=== PATIENT | female | born 1965 | race Caucasian/White ===

== ENCOUNTER 2021-08-19 03:37 | Inpatient (IN) | payer MEDICARE, MEDICAID, SELFPAY ==
--- NOTE | 2021-08-19 | ECG_ITS ---
Test Reason : baseline for antipsychotics Blood Pressure : / mmHG Vent. Rate : 086 BPM Atrial Rate : 086 BPM P-R Int : 126 ms QRS Dur : 078 ms QT Int : 356 ms P-R-T Axes : 060 020 038 degrees QTc Int : 426 ms Poor data quality, interpretation may be adversely affected Normal sinus rhythm Normal ECG No previous ECGs available Referred By: Talya Quesada Electronically Signed By:Sebastian Romeo
--- NOTE | ~2021-08-19 | US_ITS ---
EXAMINATION: US ABDOMEN COMPLETE CLINICAL INFORMATION: Pain. Rule out mass. COMPARISON: None TECHNIQUE: Real-time imaging of the abdominal viscera. FINDINGS: PANCREAS: Not well visualized due to bowel gas. ABDOMINAL AORTA: The proximal, mid, and distal segments are normal in caliber. INFERIOR VENA CAVA: Visualized portions are normal. LIVER: The liver is normal in size. The liver contour is normal. Liver echotexture is slightly increased. No focal hepatic lesion. There is no intrahepatic biliary duct dilatation seen. GALLBLADDER: Limited as the patient has recently eaten. Gallbladder is slightly contracted. Gallbladder wall is slightly thickened measuring 4 mm. No gallstones are seen. COMMON BILE DUCT: Normal in caliber measuring 0.8 cm in diameter. RIGHT KIDNEY: Normal. No hydronephrosis. No renal calculi or focal parenchymal lesions. The kidney measures 9.9 cm in maximum dimension. LEFT KIDNEY: Normal. No hydronephrosis. No renal calculi or focal parenchymal lesions. The kidney measures 11.0 cm in maximum dimension. SPLEEN: Normal. The spleen measures 11.6 cm in maximum dimension. FREE FLUID: None. US/US abdomen complete IMPRESSION: Slightly echogenic liver. Limited evaluation of the gallbladder as the patient has recently eaten. No gallstone seen. Limited visualization of the pancreas.
--- NOTE | ~2021-08-19 | XR_ITS ---
EXAMINATION: XR HIP, LEFT CLINICAL INFORMATION: Hip and back pain COMPARISON: None TECHNIQUE: Two views of the left hip and one view of the pelvis. FINDINGS: There is a moderate to severe left hip arthritis with joint space narrowing, osteophyte formation and some subchondral cyst formation. The right hip joint is normal. Bones of the pelvis are normal. Soft tissues are normal. XR/XR hip LT min 2V IMPRESSION: Moderate to severe left hip arthritis.
[2021-08-19 05:19] VITALS: BMI 32.8
[2021-08-19 05:32] VITALS: BP 112/82; PULSE 66; RESP 18; TEMP 36.4; O2SAT 100
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
[2021-08-19 06:06] VITALS: BMI 32.8
[2021-08-19 08:44] VITALS: BP 118/78; PULSE 80; RESP 16; TEMP 36.6; O2SAT 98
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
[2021-08-19] MEDS: Nicotine Polacrilex 2 MG GUM BUCCAL (11:50)
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
[2021-08-19] MEDS: Gabapentin 300 MG CAPSULE PO (20:23)
[2021-08-19] MEDS: rOPINIRole HCL 0.5 MG TABLET PO (20:23)
[2021-08-19] MEDS: Melatonin 3 MG TABLET 9 MG PO (20:23)
[2021-08-19] MEDS: QUEtiapine Fumarate 50 MG TABLET PO (20:23)
[2021-08-19] MEDS: Amoxicillin/Potassium Clav 875 MG TABLET PO (20:24)
[2021-08-19] MEDS: LORazepam 1 MG TABLET PO (20:24)
[2021-08-19 20:32] VITALS: BP 169/84; PULSE 75; TEMP 36.5; O2SAT 99
[2021-08-19 20:36] VITALS: BP 169/84; PULSE 75
[2021-08-19] MEDS: cloNIDine HCL 0.1 MG TABLET PO (20:36)
--- NOTE | 2021-08-19 23:18 | PC.NURSE ---
Patient BP at 2031 169/84. Talya Quesada aware. 0.1 mg clonidine ordered and administered at 2035 with good effect. BP rechecked at 2319. BP 118/66.
[2021-08-20 07:56] LABS: Estimated Average Glucose 111 mg/dL; Hemoglobin A1c % 5.5 %
[2021-08-20 08:00] VITALS: BP 135/89; PULSE 67; TEMP 36.1; O2SAT 100
[2021-08-20 08:04] LABS: Cholesterol 236 mg/dL; HDL Cholesterol 46 mg/dL; LDL Cholesterol Calculated 167 mg/dl; Triglycerides 119 mg/dL
[2021-08-20] MEDS: LORazepam 1 MG TABLET PO (08:42)
[2021-08-20] MEDS: Cariprazine HCl 1.5 MG CAPSULE PO (08:42)
[2021-08-20] MEDS: QUEtiapine Fumarate 50 MG TABLET PO ×2 (08:42→20:43)
[2021-08-20] MEDS: Gabapentin 300 MG CAPSULE PO ×2 (08:42→20:43)
[2021-08-20] MEDS: Amoxicillin/Potassium Clav 875 MG TABLET PO ×2 (08:42→20:44)
[2021-08-20 08:57] LABS: Vitamin B12 550 pg/mL (200-900)
[2021-08-20] MEDS: Multivitamin TABLET 1 TAB PO (09:36)
[2021-08-20] MEDS: rOPINIRole HCL 0.5 MG TABLET PO ×2 (12:16→20:43)
[2021-08-20] MEDS: Artificial Tears 15 ML DROPS 2 DROP EYE-BOTH (12:23)
[2021-08-20] MEDS: Nicotine Polacrilex 2 MG GUM BUCCAL ×2 (12:26→18:52)
--- NOTE | 2021-08-20 12:50 | P.PNPSI_ITS ---
Subjective Subjective Date of Service: 08/20/21 Reason For Visit: Bipolar, Schizoaffective Subjective Notes: Conditional Voluntary Interim History: Patient's case reviewed with nursing staff chart reviewed patient seen. Patient somewhat pressured expansive irritable reactive. Somewhat pressure dysphoric and argumentative Medication Compliance: Yes Mental Status Exam Mental Status Exam Narrative: A&O. In hospital attire, dyed hair, overweight, not malodorous. Speech somewhat pressured irritable reactive and intrusive. Disheveled No Tics or Tremors. No abnormal involuntary movements. Activated but cooperative, engaged. Speech is pressured, spontaneous with increased rate and rhythm, normal volume and prosody, hyperverbal. No prolonged speech latency or dysarthria. Mood is ?alright,? affect is bright, activated. Denies SI/SIB/HI upon inquiry. Denies A/VH. Endorses bizarre/ delusional thought content. Thoughts are tangential. No known cognitive or memory impairment. Insight/ Judgment limited. Diagnostics Vital Signs (24Hr): Vital Signs - 24 hr 08/19/21 20:32 08/19/21 20:36 08/20/21 08:00 Temperature 97.7 F 96.9 F Pulse Rate 75 75 67 Blood Pressure 169/84 H 169/84 H 135/89 Pulse Oximetry 99 100 BMI result Body Mass Index 32.8 Labs Labs: Laboratory Results - last 48 hr 08/20/21 08/20/21 08/20/21 07:22 07:22 07:22 Estimat Average Glucose 111 Hemoglobin A1c % 5.5 Triglycerides 119 Cholesterol 236 LDL Cholesterol, Calc 167 HDL Cholesterol 46 Vitamin B12 550 Medications Medications Current Medications Acetaminophen (Acetaminophen 325 Mg Tablet) 650 mg PO Q6H PRN PRN Reason: Headache/Pain Mild Scale (1-3) Al Hydroxide/Mg Hydroxide (Magnesium Hydrox/Alum Hydrox 30 Ml Oral.Susp) 30 ml PO Q6H PRN PRN Reason: Heartburn/Nausea Amoxicillin/Clavulanate Potassium (Amoxicillin/Potassium Clav 875 Mg Tablet) 875 mg PO Q12H [facility] Stop: 08/22/21 20:59 Last Admin: 08/20/21 08:42 Dose: 875 mg Documented by: Artificial Tears (Artificial Tears 15 Ml Drops) 2 drop EYE-BOTH Q4H PRN PRN Reason: dry eyes Last Admin: 08/20/21 12:23 Dose: 2 drop Documented by: Artificial Tears (Artificial Tears 15 Ml Drops) 1 drop EYE-BOTH Q4H PRN PRN Reason: Dry Eyes Cariprazine (Cariprazine Hcl 1.5 Mg Capsule) 1.5 mg PO DAILY [facility] Last Admin: 08/20/21 08:42 Dose: 1.5 mg Documented by: Clonidine HCl (Clonidine Hcl 0.1 Mg Tablet) 0.1 mg PO BEDTIME [facility]; Protocol Last Admin: 08/19/21 20:36 Dose: 0.1 mg Documented by: Gabapentin (Gabapentin 300 Mg Capsule) 300 mg PO BID [facility] Last Admin: 08/20/21 08:42 Dose: 300 mg Documented by: Hydroxyzine HCl (Hydroxyzine Hcl 25 Mg Tablet) 25 mg PO BEDTIME PRN PRN Reason: Anxiety Lorazepam (Lorazepam 1 Mg Tablet) 1 mg PO BID PRN PRN Reason: anxiety, agitation Last Admin: 08/20/21 08:42 Dose: 1 mg Documented by: Magnesium Hydroxide (Milk Of Magnesia 30 Ml Oral.Susp) 30 ml PO DAILY PRN PRN Reason: Constipation Melatonin (Melatonin 3 Mg Tablet) 9 mg PO BEDTIME [facility] Last Admin: 08/19/21 20:23 Dose: 9 mg Documented by: Multivitamins/Vitamin C (Multivitamin Tablet) 1 tab PO DAILY [facility] Last Admin: 08/20/21 09:36 Dose: 1 tab Documented by: Nicotine Polacrilex (Nicotine Polacrilex 2 Mg Gum) 2 mg BUCCAL Q2H PRN PRN Reason: Nicotine Cravings Last Admin: 08/20/21 12:26 Dose: 2 mg Documented by: Quetiapine Fumarate (Quetiapine Fumarate 50 Mg Tablet) 50 mg PO BID [facility] Last Admin: 08/20/21 08:42 Dose: 50 mg Documented by: Ropinirole HCl (Ropinirole Hcl 0.5 Mg Tablet) 0.5 mg PO BID [facility] Last Admin: 08/20/21 12:16 Dose: 0.5 mg Documented by: Allergies Allergies Allergy/AdvReac Type Severity Reaction Status Date / Time aripiprazole [From Abilify] Allergy Unknown Involuntary Verified 08/19/21 07:20 Spasms chlorpromazine Allergy Unknown Nausea and Verified 08/19/21 07:20 [From Thorazine] Vomiting haloperidol [From Haldol] Allergy Unknown Involuntary Verified 08/19/21 07:20 Spasms olanzapine [From Zyprexa] Allergy Unknown Involuntary Verified 08/19/21 07:20 Spasms paliperidone [From Invega] Allergy Unknown Hallucinati Verified 08/19/21 07:20 ons risperidone Allergy Unknown Involuntary Verified 08/19/21 07:20 Spasms Assessment & Plan Assessment & Plan (1) Schizoaffective disorder, bipolar type: Status: Acute Code(s): F25.0 - Schizoaffective disorder, bipolar type Assessment and Plan: Pt is a 55 y.o. Female who carries a diagnosis of schizoaffective disorder, bipolar type. Pt presented to [facility] from [facility] ED due to disorganized behavior, paranoid thought content, and racing thoughts. In the ED, pt was prescribed gabapentin 300 mg, ativan 1 mg, seroquel 200 mg. However, she intermittently refused seroquel due to reported akathesia, stating ?it will make me flop like a fish all night.? Plan: Pt was hypertensive, given clonidine 0.1 mg QHS due to BP of 169/84, 173/85mmHg. Pt willing to take seroquel 50 mg BID with requip 0.5 mg BID to treat akathesia. Will trial vraylar 1.5 mg to target manic and psychotic sx, as pt reports being unable to tolerate multiple typical and atypical agents. She is also unwilling to take any mood stabilizer that requires lab monitoring. Will continue gabapentin 300 mg BID for mood stability, anxiety, as well as to help with sciatica. Monitor response to medications. Monitor for safety in the milieu. Discharge on stabilization. Patient seen. Chart reviewed. Discussed with team. Obtain collateral contact info?as needed 08/20/2021 Patient dysphoric irritable appears to be in mixed state continue Vryalar monitor response encourage compliance I spent minutes with the patient and/or on the patient floor today, greater than?50% of which was spent counseling/coordinating care. Reason for contiued inpatient stay Substantial Risk for: inability to function and rapid decompensation
[2021-08-20] MEDS: Milk of Magnesia 30 ML ORAL.SUSP PO (13:48)
[2021-08-20] MEDS: Magnesium Citrate 300 ML SOLUTION PO (18:53)
[2021-08-20 20:44] VITALS: BP 144/70; PULSE 110
[2021-08-20] MEDS: cloNIDine HCL 0.1 MG TABLET PO (20:44)
[2021-08-20] MEDS: Melatonin 3 MG TABLET 9 MG PO (20:44)
[2021-08-20 20:50] VITALS: BP 144/70; PULSE 110; TEMP 36.2; O2SAT 97
[2021-08-21] MEDS: Nicotine Polacrilex 2 MG GUM BUCCAL ×3 (05:29→20:16)
[2021-08-21 06:00] VITALS: BP 117/69; PULSE 70; RESP 17; O2SAT 100
[2021-08-21] MEDS: Artificial Tears 15 ML DROPS 1 DROP EYE-BOTH ×3 (06:26→21:03)
[2021-08-21] MEDS: LORazepam 1 MG TABLET PO ×2 (06:32→18:58)
[2021-08-21] MEDS: Amoxicillin/Potassium Clav 875 MG TABLET PO ×2 (10:01→20:57)
[2021-08-21] MEDS: Multivitamin TABLET 1 TAB PO (10:02)
[2021-08-21] MEDS: Gabapentin 300 MG CAPSULE PO ×2 (10:02→20:57)
[2021-08-21] MEDS: Cariprazine HCl 1.5 MG CAPSULE PO (10:02)
[2021-08-21] MEDS: rOPINIRole HCL 0.5 MG TABLET PO ×2 (10:03→20:57)
[2021-08-21] MEDS: QUEtiapine Fumarate 50 MG TABLET PO ×2 (10:48→20:57)
[2021-08-21] MEDS: Acetaminophen 325 MG TABLET 650 MG PO (10:54)
[2021-08-21] MEDS: Lidocaine 4 % Patch ADH..PATCH 1 PATCH TRANSDERMA (16:23)
[2021-08-21] MEDS: QUEtiapine Fumarate 100 MG TABLET PO (18:58)
[2021-08-21 20:58] VITALS: BP 125/76; PULSE 99
[2021-08-21] MEDS: cloNIDine HCL 0.1 MG TABLET PO (20:58)
[2021-08-21] MEDS: Melatonin 3 MG TABLET 9 MG PO (20:58)
[2021-08-21 21:05] VITALS: BP 125/76; PULSE 99; TEMP 36.7; O2SAT 96
--- NOTE | 2021-08-21 23:06 | P.PNPSI_ITS ---
Subjective Subjective Date of Service: 08/21/21 Reason For Visit: Bipolar, Schizoaffective Subjective Notes: Conditional Voluntary Healthcare Proxy: No Medical Problems Affecting Mental Status: No Interim History: Patient somewhat labile intrusive irritable can be reactive pressured. Somewhat demanding complains of back pain knee pain Medication Compliance: Intermittent Attending Groups: No Mental Status Exam Mental Status Exam Narrative: Patient Appearance: Disheveled Patient Orientation: Person, Place, Time and Situation Level of Consciousness: Awake Patient Behavior: Restless and Impulsive Affect Description: Anxious, Labile and Angry Ability to Follow Directions: Fair Speech Pattern: Perseverating, Pressured and Includes Profanity Delusions: Paranoid Ideation Thought Process: Racing and Rumination Thought Content: negative for Suicidal Ideation or positive for Homicidal Ideation Judgement: Fair Diagnostics Vital Signs (24Hr): Vital Signs - 24 hr 08/21/21 06:00 08/21/21 20:58 08/21/21 21:05 Temperature 98.0 F Pulse Rate 70 99 99 Respiratory Rate 17 Blood Pressure 117/69 125/76 125/76 Pulse Oximetry 100 96 BMI result Body Mass Index 32.8 Labs Labs: Laboratory Results - last 48 hr 08/20/21 08/20/21 08/20/21 07:22 07:22 07:22 Estimat Average Glucose 111 Hemoglobin A1c % 5.5 Triglycerides 119 Cholesterol 236 LDL Cholesterol, Calc 167 HDL Cholesterol 46 Vitamin B12 550 Medications Medications Current Medications Acetaminophen (Acetaminophen 325 Mg Tablet) 650 mg PO Q6H PRN PRN Reason: Headache/Pain Mild Scale (1-3) Last Admin: 08/21/21 10:54 Dose: 650 mg Documented by: Al Hydroxide/Mg Hydroxide (Magnesium Hydrox/Alum Hydrox 30 Ml Oral.Susp) 30 ml PO Q6H PRN PRN Reason: Heartburn/Nausea Amoxicillin/Clavulanate Potassium (Amoxicillin/Potassium Clav 875 Mg Tablet) 875 mg PO Q12H YAYA Stop: 08/22/21 20:59 Last Admin: 08/21/21 20:57 Dose: 875 mg Documented by: Artificial Tears (Artificial Tears 15 Ml Drops) 2 drop EYE-BOTH Q4H PRN PRN Reason: dry eyes Last Admin: 08/20/21 12:23 Dose: 2 drop Documented by: Artificial Tears (Artificial Tears 15 Ml Drops) 1 drop EYE-BOTH Q4H PRN PRN Reason: Dry Eyes Last Admin: 08/21/21 21:03 Dose: 1 drop Documented by: Cariprazine (Cariprazine Hcl 3 Mg Capsule) 3 mg PO DAILY [facility] Clonidine HCl (Clonidine Hcl 0.1 Mg Tablet) 0.1 mg PO BEDTIME [facility]; Protocol Last Admin: 08/21/21 20:58 Dose: 0.1 mg Documented by: Gabapentin (Gabapentin 300 Mg Capsule) 300 mg PO BID [facility] Last Admin: 08/21/21 20:57 Dose: 300 mg Documented by: Hydroxyzine HCl (Hydroxyzine Hcl 25 Mg Tablet) 25 mg PO BEDTIME PRN PRN Reason: Anxiety Ibuprofen (Ibuprofen 400 Mg Tablet) 400 mg PO Q6H PRN PRN Reason: Pain, Moderate (Pain Scale 4-6 Lidocaine (Lidocaine 4 % Patch Adh..Patch) 1 patch TRANSDERMA DAILY [facility]; Prot ocol Last Admin: 08/21/21 16:23 Dose: 1 patch Documented by: Lorazepam (Lorazepam 1 Mg Tablet) 1 mg PO BID PRN PRN Reason: anxiety, agitation Last Admin: 08/21/21 18:58 Dose: 1 mg Documented by: Magnesium Hydroxide (Milk Of Magnesia 30 Ml Oral.Susp) 30 ml PO DAILY PRN PRN Reason: Constipation Last Admin: 08/20/21 13:48 Dose: 30 ml Documented by: Melatonin (Melatonin 3 Mg Tablet) 9 mg PO BEDTIME [facility] Last Admin: 08/21/21 20:58 Dose: 9 mg Documented by: Multivitamins/Vitamin C (Multivitamin Tablet) 1 tab PO DAILY [facility] Last Admin: 08/21/21 10:02 Dose: 1 tab Documented by: Nicotine Polacrilex (Nicotine Polacrilex 2 Mg Gum) 2 mg BUCCAL Q2H PRN PRN Reason: Nicotine Cravings Last Admin: 08/21/21 20:16 Dose: 2 mg Documented by: Quetiapine Fumarate (Quetiapine Fumarate 50 Mg Tablet) 50 mg PO BID [facility] Last Admin: 08/21/21 20:57 Dose: 50 mg Documented by: Ropinirole HCl (Ropinirole Hcl 0.5 Mg Tablet) 0.5 mg PO BID [facility] Last Admin: 08/21/21 20:57 Dose: 0.5 mg Documented by: Allergies Allergies Allergy/AdvReac Type Severity Reaction Status Date / Time aripiprazole [From [facility]] Allergy Unknown Involuntary Verified 08/19/21 07:20 Spasms chlorpromazine Allergy Unknown Nausea and Verified 08/19/21 07:20 [From Thorazine] Vomiting haloperidol [From Haldol] Allergy Unknown Involuntary Verified 08/19/21 07:20 Spasms olanzapine [From Zyprexa] Allergy Unknown Involuntary Verified 08/19/21 07:20 Spasms paliperidone [From Invega] Allergy Unknown Hallucinati Verified 08/19/21 07:20 ons risperidone Allergy Unknown Involuntary Verified 08/19/21 07:20 Spasms Assessment & Plan Assessment & Plan (1) Schizoaffective disorder, bipolar type: Status: Acute Code(s): F25.0 - Schizoaffective disorder, bipolar type Assessment and Plan: Pt is a 55 y.o. Female who carries a diagnosis of schizoaffective disorder, bipolar type. Pt presented to [facility] from [facility] ED due to disorganized behavior, paranoid thought content, and racing thoughts. In the ED, pt was prescribed gabapentin 300 mg, ativan 1 mg, seroquel 200 mg. However, she intermittently refused seroquel due to reported akathesia, stating ?it will make me flop like a fish all night.? Plan: Pt was hypertensive, given clonidine 0.1 mg QHS due to BP of 169/84, 173/85mmHg. Pt willing to take seroquel 50 mg BID with requip 0.5 mg BID to treat akathesia. Will trial vraylar 1.5 mg to target manic and psychotic sx, as pt reports being unable to tolerate multiple typical and atypical agents. She is also unwilling to take any mood stabilizer that requires lab monitoring. Will continue gabapentin 300 mg BID for mood stability, anxiety, as well as to help with sciatica. Monitor response to medications. Monitor for safety in the milieu. Discharge on stabilization. Patient seen. Chart reviewed. Discussed with team. Obtain collateral contact info?as needed 08/20/2021 Patient dysphoric irritable appears to be in mixed state continue Vryalar monitor response encourage compliance 08/21/2021 Patient irritable pressured increase Vraylar to 3 mg daily Case reviewed with nursing staff chart reviewed patient seen I spent minutes with the patient and/or on the patient floor today, greater than?50% of which was spent counseling/coordinating care. Reason for contiued inpatient stay Substantial Risk for: inability to function and rapid decompensation
[2021-08-22] MEDS: Magnesium Hydrox/Alum Hydrox 30 ML ORAL.SUSP PO (05:54)
[2021-08-22 06:00] VITALS: BP 118/58; PULSE 82; RESP 18; TEMP 37.2; O2SAT 97
[2021-08-22] MEDS: Nicotine Polacrilex 2 MG GUM BUCCAL ×3 (06:28→13:56)
[2021-08-22] MEDS: Ibuprofen 400 MG TABLET PO ×2 (06:48→16:44)
[2021-08-22] MEDS: Gabapentin 300 MG CAPSULE PO ×2 (06:49→20:37)
[2021-08-22] MEDS: rOPINIRole HCL 0.5 MG TABLET PO ×2 (09:57→20:38)
[2021-08-22] MEDS: QUEtiapine Fumarate 50 MG TABLET PO (09:57)
[2021-08-22] MEDS: Amoxicillin/Potassium Clav 875 MG TABLET PO (09:57)
[2021-08-22] MEDS: LORazepam 1 MG TABLET PO ×2 (09:57→20:39)
[2021-08-22] MEDS: Cariprazine HCl 3 MG CAPSULE PO (09:57)
[2021-08-22] MEDS: Lidocaine 4 % Patch ADH..PATCH 1 PATCH TRANSDERMA (09:58)
[2021-08-22] MEDS: Milk of Magnesia 30 ML ORAL.SUSP PO (10:01)
[2021-08-22] MEDS: Multivitamin TABLET 1 TAB PO (10:04)
[2021-08-22] MEDS: Artificial Tears 15 ML DROPS 1 DROP EYE-BOTH (11:52)
[2021-08-22] MEDS: Magnesium Citrate 300 ML SOLUTION 150 ML PO (14:08)
[2021-08-22] MEDS: Acetaminophen 325 MG TABLET 650 MG PO (16:44)
[2021-08-22] MEDS: Sennosides/Docusate Sodium TABLET 1 TAB PO (16:45)
[2021-08-22 18:00] VITALS: BP 132/81; PULSE 105; RESP 18; TEMP 36.7; O2SAT 98
[2021-08-22] MEDS: Benzocaine 20 % Oral Gel 9 GM TUBE 1 APPL MUCOUS MEM (19:17)
[2021-08-22] MEDS: Melatonin 3 MG TABLET 9 MG PO (20:37)
[2021-08-22 20:38] VITALS: BP 132/81; PULSE 105
[2021-08-22] MEDS: cloNIDine HCL 0.1 MG TABLET PO (20:38)
[2021-08-22] MEDS: QUEtiapine Fumarate 100 MG TABLET PO (20:39)
--- NOTE | 2021-08-22 23:00 | HO.PSYCHPN ---
Subjective Subjective Date of Service: 08/22/21 Reason For Visit: Bipolar, Schizoaffective Subjective Notes: Conditional Voluntary Healthcare Proxy: No Interim History: pt manic- INTUSIVE IRRITABLE intrusivemoften demanding asking for narcotivs for pain Mental Status Exam Mental Status Exam Narrative: Patient Appearance: Disheveled Patient Orientation: Person, Place, Time and Situation Level of Consciousness: Awake Patient Behavior: Restless, Belligerent and Impulsive Mood Description: Angry and Apprehensive Affect Description: Anxious, Labile and Angry Ability to Follow Directions: Fair Speech Pattern: Perseverating, Pressured and Includes Profanity Delusions: Paranoid Ideation Thought Process: Racing and Rumination Thought Content: negative for Suicidal Ideation or positive for Homicidal Ideation (can be threatening ) Abnormal Motor Activity Signs and Symptoms: Agitation and Hyperactivity Judgement: Fair Diagnostics Vital Signs (24Hr): Vital Signs - 24 hr 08/22/21 06:00 08/22/21 18:00 08/22/21 20:38 Temperature 98.9 F 98.1 F Pulse Rate 82 105 H 105 H Respiratory Rate 18 18 Blood Pressure 118/58 L 132/81 132/81 Pulse Oximetry 97 98 BMI result Body Mass Index 32.8 Medications Medications Current Medications Acetaminophen (Acetaminophen 325 Mg Tablet) 650 mg PO Q6H PRN PRN Reason: Headache/Pain Mild Scale (1-3) Last Admin: 08/22/21 16:44 Dose: 650 mg Documented by: Al Hydroxide/Mg Hydroxide (Magnesium Hydrox/Alum Hydrox 30 Ml Oral.Susp) 30 ml PO Q6H PRN PRN Reason: Heartburn/Nausea Last Admin: 08/22/21 05:54 Dose: 30 ml Documented by: Artificial Tears (Artificial Tears 15 Ml Drops) 2 drop EYE-BOTH Q4H PRN PRN Reason: dry eyes Last Admin: 08/20/21 12:23 Dose: 2 drop Documented by: Artificial Tears (Artificial Tears 15 Ml Drops) 1 drop EYE-BOTH Q4H PRN PRN Reason: Dry Eyes Last Admin: 08/22/21 11:52 Dose: 1 drop Documented by: Benzocaine (Benzocaine 20 % Oral Gel 9 Gm Tube) 1 appl MUCOUS MEM QID PRN; Protocol PRN Reason: Mouth Sore Pain Last Admin: 08/22/21 19:17 Dose: 1 appl Documented by: Cariprazine (Cariprazine Hcl 3 Mg Capsule) 3 mg PO DAILY [facility] Last Admin: 08/22/21 09:57 Dose: 3 mg Documented by: Clonidine HCl (Clonidine Hcl 0.1 Mg Tablet) 0.1 mg PO BEDTIME [facility]; Protocol Last Admin: 08/22/21 20:38 Dose: 0.1 mg Documented by: Gabapentin (Gabapentin 300 Mg Capsule) 300 mg PO BID [facility] Last Admin: 08/22/21 20:37 Dose: 300 mg Documented by: Hydroxyzine HCl (Hydroxyzine Hcl 25 Mg Tablet) 25 mg PO BEDTIME PRN PRN Reason: Anxiety Ibuprofen (Ibuprofen 400 Mg Tablet) 400 mg PO Q6H PRN PRN Reason: Pain, Moderate (Pain Scale 4-6 Last Admin: 08/22/21 16:44 Dose: 400 mg Documented by: Lidocaine (Lidocaine 4 % Patch Adh..Patch) 1 patch TRANSDERMA DAILY [facility]; Protocol Last Admin: 08/22/21 09:58 Dose: 1 patch Documented by: Lidocaine (Lidocaine 4 % Patch Adh..Patch) 1 patch TRANSDERMA DAILY [facility]; Protocol Lorazepam (Lorazepam 1 Mg Tablet) 1 mg PO BID PRN PRN Reason: anxiety, agitation Last Admin: 08/22/21 09:57 Dose: 1 mg Documented by: Lorazepam (Lorazepam 1 Mg Tablet) 1 mg PO BEDTIME [facility] Last Admin: 08/22/21 20:39 Dose: 1 mg Documented by: Magnesium Citrate (Magnesium Citrate 300 Ml Solution) 150 ml PO DAILY PRN PRN Reason: Constipation Last Admin: 08/22/21 14:08 Dose: 150 ml Documented by: Magnesium Hydroxide (Milk Of Magnesia 30 Ml Oral.Susp) 30 ml PO DAILY PRN PRN Reason: Constipation Last Admin: 08/22/21 10:01 Dose: 30 ml Documented by: Melatonin (Melatonin 3 Mg Tablet) 9 mg PO BEDTIME [facility] Last Admin: 08/22/21 20:37 Dose: 9 mg Documented by: Multivitamins/Vitamin C (Multivitamin Tablet) 1 tab PO DAILY [facility] Last Admin: 08/22/21 10:04 Dose: 1 tab Documented by: Nicotine Polacrilex (Nicotine Polacrilex 2 Mg Gum) 2 mg BUCCAL Q2H PRN PRN Reason: Nicotine Cravings Last Admin: 08/22/21 13:56 Dose: 2 mg Documented by: Quetiapine Fumarate (Quetiapine Fumarate 100 Mg Tablet) 100 mg PO Q6H PRN PRN Reason: anxiety/restlessness Quetiapine Fumarate (Quetiapine Fumarate 100 Mg Tablet) 100 mg PO BEDTIME [facility] Last Admin: 08/22/21 20:39 Dose: 100 mg Documented by: Ropinirole HCl (Ropinirole Hcl 0.5 Mg Tablet) 0.5 mg PO BID [facility] Last Admin: 08/22/21 20:38 Dose: 0.5 mg Documented by: Senna/Docusate Sodium (Sennosides/Docusate Sodium Tablet) 1 tab PO BID [facility] Last Admin: 08/22/21 20:47 Dose: Not Given Documented by: Allergies Allergies Allergy/AdvReac Type Severity Reaction Status Date / Time aripiprazole [From Abilify] Allergy Unknown Involuntary Verified 08/19/21 07:20 Spasms chlorpromazine Allergy Unknown Nausea and Verified 08/19/21 07:20 [From Thorazine] Vomiting haloperidol [From Haldol] Allergy Unknown Involuntary Verified 08/19/21 07:20 Spasms olanzapine [From Zyprexa] Allergy Unknown Involuntary Verified 08/19/21 07:20 Spasms paliperidone [From Invega] Allergy Unknown Hallucinati Verified 08/19/21 07:20 ons risperidone Allergy Unknown Involuntary Verified 08/19/21 07:20 Spasms Assessment & Plan Assessment & Plan (1) Schizoaffective disorder, bipolar type: Status: Acute Code(s): F25.0 - Schizoaffective disorder, bipolar type Assessment and Plan: Pt is a 55 y.o. Female who carries a diagnosis of schizoaffective disorder, bipolar type. Pt presented to [facility] from [facility] ED due to disorganized behavior, paranoid thought content, and racing thoughts. In the ED, pt was prescribed gabapentin 300 mg, ativan 1 mg, seroquel 200 mg. However, she intermittently refused seroquel due to reported akathesia, stating ?it will make me flop like a fish all night.? Plan: Pt was hypertensive, given clonidine 0.1 mg QHS due to BP of 169/84, 173/85mmHg. Pt willing to take seroquel 50 mg BID with requip 0.5 mg BID to treat akathesia. Will trial vraylar 1.5 mg to target manic and psychotic sx, as pt reports being unable to tolerate multiple typical and atypical agents. She is also unwilling to take any mood stabilizer that requires lab monitoring. Will continue gabapentin 300 mg BID for mood stability, anxiety, as well as to help with sciatica. Monitor response to medications. Monitor for safety in the milieu. Discharge on stabilization. Patient seen. Chart reviewed. Discussed with team. Obtain collateral contact info?as needed 08/20/2021 Patient dysphoric irritable appears to be in mixed state continue Vryalar monitor response encourage compliance 08/21/2021 Patient irritable pressured increase Vraylar to 3 mg daily Case reviewed with nursing staff chart reviewed patient seen 08/22/21 vivian wilder prn and scheduled I spent minutes with the patient and/or on the patient floor today, greater than?50% of which was spent counseling/coordinating care. Reason for contiued inpatient stay Substantial Risk for: harm to others and rapid decompensation
[2021-08-23 08:00] VITALS: BP 114/63; PULSE 76; TEMP 35.9; O2SAT 100
[2021-08-23] MEDS: rOPINIRole HCL 0.5 MG TABLET PO ×2 (08:04→20:31)
[2021-08-23] MEDS: Multivitamin TABLET 1 TAB PO (08:04)
[2021-08-23] MEDS: Sennosides/Docusate Sodium TABLET 1 TAB PO ×2 (08:04→20:31)
[2021-08-23] MEDS: Gabapentin 300 MG CAPSULE PO ×2 (08:04→20:32)
[2021-08-23] MEDS: Lidocaine 4 % Patch ADH..PATCH 1 PATCH TRANSDERMA ×2 (08:05→08:06)
--- NOTE | 2021-08-23 11:21 | HO.PSYCHPN ---
Subjective Subjective Date of Service: 08/23/21 Reason For Visit: Bipolar, Schizoaffective Subjective Notes: Conditional Voluntary Interim History: Pt labile, hyperverbal, tells this residential mortgage underwriter I can't take covid vaccine, I can't have anything penetrate me, only one man can. Pt asks this residential mortgage underwriter to call her sugar cube. She asks that I give her sugar as covid vaccine. Pt with gale I'm not a traider but I like thermodynamicist Gerard. She was somewhat amenable to take depakote. She reports side effects with most other antipsychotics. Per nursing, pt is labile, intrusive, disorganized, has faul sticky jewlery on face. Some accusatory statements in that she reports staff are tricking me. Medication Compliance: Intermittent Review of Systems Review of Systems CVS: No c/o chest pain, palpitations, no SOB VIDEO TAPE EDITOR: No c/o dizziness, headache GI: No c/o Nausea, Vomiting, diarrhea, constipation or heartburn Yes all other systems are reviewed and are negative Diagnostics Vital Signs (24Hr): Vital Signs - 24 hr 08/22/21 18:00 08/22/21 20:38 Temperature 98.1 F Pulse Rate 105 H 105 H Respiratory Rate 18 Blood Pressure 132/81 132/81 Pulse Oximetry 98 BMI result Body Mass Index 32.8 Medications Medications Current Medications Acetaminophen (Acetaminophen 325 Mg Tablet) 650 mg PO Q6H PRN PRN Reason: Headache/Pain Mild Scale (1-3) Last Admin: 08/22/21 16:44 Dose: 650 mg Documented by: Al Hydroxide/Mg Hydroxide (Magnesium Hydrox/Alum Hydrox 30 Ml Oral.Susp) 30 ml PO Q6H PRN PRN Reason: Heartburn/Nausea Last Admin: 08/22/21 05:54 Dose: 30 ml Documented by: Artificial Tears (Artificial Tears 15 Ml Drops) 2 drop EYE-BOTH Q4H PRN PRN Reason: dry eyes Last Admin: 08/20/21 12:23 Dose: 2 drop Documented by: Artificial Tears (Artificial Tears 15 Ml Drops) 1 drop EYE-BOTH Q4H PRN PRN Reason: Dry Eyes Last Admin: 08/22/21 11:52 Dose: 1 drop Documented by: Benzocaine (Benzocaine 20 % Oral Gel 9 Gm Tube) 1 appl MUCOUS MEM QID PRN; Protocol PRN Reason: Mouth Sore Pain Last Admin: 08/22/21 19:17 Dose: 1 appl Documented by: Cariprazine (Cariprazine Hcl 3 Mg Capsule) 3 mg PO DAILY [facility] Last Admin: 08/23/21 11:25 Dose: Not Given Documented by: Clonazepam (Clonazepam 1 Mg Tablet) 1 mg PO BID [facility] Last Admin: 08/23/21 13:00 Dose: 1 mg Documented by: Clonidine HCl (Clonidine Hcl 0.1 Mg Tablet) 0.1 mg PO BEDTIME [facility]; Protocol Last Admin: 08/22/21 20:38 Dose: 0.1 mg Documented by: Divalproex Sodium (Divalproex Sodium Sprinkles 125 Mg ) 500 mg PO BID [facility] Gabapentin (Gabapentin 300 Mg Capsule) 300 mg PO BID [facility] Last Admin: 08/23/21 08:04 Dose: 300 mg Documented by: Hydroxyzine HCl (Hydroxyzine Hcl 25 Mg Tablet) 25 mg PO BEDTIME PRN PRN Reason: Anxiety Ibuprofen (Ibuprofen 400 Mg Tablet) 400 mg PO Q6H PRN PRN Reason: Pain, Moderate (Pain Scale 4-6 Last Admin: 08/22/21 16:44 Dose: 400 mg Documented by: Lidocaine (Lidocaine 4 % Patch Adh..Patch) 1 patch TRANSDERMA DAILY [facility]; Protocol Last Admin: 08/23/21 08:05 Dose: 1 patch Documented by: Lidocaine (Lidocaine 4 % Patch Adh..Patch) 1 patch TRANSDERMA DAILY [facility]; Protocol Last Admin: 08/23/21 08:06 Dose: 1 patch Documented by: Magnesium Citrate (Magnesium Citrate 300 Ml Solution) 150 ml PO DAILY PRN PRN Reason: Constipation Last Admin: 08/22/21 14:08 Dose: 150 ml Documented by: Magnesium Hydroxide (Milk Of Magnesia 30 Ml Oral.Susp) 30 ml PO DAILY PRN PRN Reason: Constipation Last Admin: 08/22/21 10:01 Dose: 30 ml Documented by: Melatonin (Melatonin 3 Mg Tablet) 9 mg PO BEDTIME [facility] Last Admin: 08/22/21 20:37 Dose: 9 mg Documented by: Multivitamins/Vitamin C (Multivitamin Tablet) 1 tab PO DAILY [facility] Last Admin: 08/23/21 08:04 Dose: 1 tab Documented by: Nicotine Polacrilex (Nicotine Polacrilex 2 Mg Gum) 2 mg BUCCAL Q2H PRN PRN Reason: Nicotine Cravings Last Admin: 08/23/21 11:38 Dose: 2 mg Documented by: Quetiapine Fumarate (Quetiapine Fumarate 100 Mg Tablet) 100 mg PO Q6H PRN PRN Reason: anxiety/restlessness Last Admin: 08/23/21 13:00 Dose: 100 mg Documented by: Quetiapine Fumarate (Quetiapine Fumarate 200 Mg Tablet) 200 mg PO BEDTIME [facility] Ropinirole HCl (Ropinirole Hcl 0.5 Mg Tablet) 0.5 mg PO BID [facility] Last Admin: 08/23/21 08:04 Dose: 0.5 mg Documented by: Senna/Docusate Sodium (Sennosides/Docusate Sodium Tablet) 1 tab PO BID [facility] Last Admin: 08/23/21 08:04 Dose: 1 tab Documented by: Allergies Allergies Allergy/AdvReac Type Severity Reaction Status Date / Time aripiprazole [From Abilify] Allergy Unknown Involuntary Verified 08/19/21 07:20 Spasms chlorpromazine Allergy Unknown Nausea and Verified 08/19/21 07:20 [From Thorazine] Vomiting haloperidol [From Haldol] Allergy Unknown Involuntary Verified 08/19/21 07:20 Spasms olanzapine [From Zyprexa] Allergy Unknown Involuntary Verified 08/19/21 07:20 Spasms paliperidone [From Invega] Allergy Unknown Hallucinati Verified 08/19/21 07:20 ons risperidone Allergy Unknown Involuntary Verified 08/19/21 07:20 Spasms Assessment & Plan Assessment & Plan (1) Schizoaffective disorder, bipolar type: Status: Acute Code(s): F25.0 - Schizoaffective disorder, bipolar type Assessment and Plan: Pt is a 55 y.o. Female who carries a diagnosis of schizoaffective disorder, bipolar type. Pt [place] [facility] [place] [facility] ED due to disorganized behavior, paranoid thought content, and racing thoughts. In the ED, pt was prescribed gabapentin 300 mg, ativan 1 mg, seroquel 200 mg. However, she intermittently refused seroquel due to reported akathesia, stating ?it will make me flop like a fish all night.? Plan: Pt was hypertensive, given clonidine 0.1 mg QHS due to BP of 169/84, 173/85mmHg. Pt willing to take seroquel 50 mg BID with requip 0.5 mg BID to treat akathesia. Will trial vraylar 1.5 mg to target manic and psychotic sx, as pt reports being unable to tolerate multiple typical and atypical agents. She is also unwilling to take any mood stabilizer that requires lab monitoring. Will continue gabapentin 300 mg BID for mood stability, anxiety, as well as to help with sciatica. PLAN 1. Continue Vraylar 2. Start depakote 500mg po BID, clonazepam 1mg po BID. 3. Aftercare planning I spent 25 minutes with the patient and/or on the patient floor today, greater than?50% of which was spent counseling/coordinating care. Reason for contiued inpatient stay Substantial Risk for: inability to function
[2021-08-23] MEDS: LORazepam 1 MG TABLET PO (11:38)
[2021-08-23] MEDS: Nicotine Polacrilex 2 MG GUM BUCCAL ×4 (11:38→21:28)
[2021-08-23] MEDS: QUEtiapine Fumarate 100 MG TABLET PO (13:00)
[2021-08-23] MEDS: clonazePAM 1 MG TABLET PO ×2 (13:00→20:31)
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
[2021-08-23] MEDS: LORazepam 2 MG/ML VIAL IM (13:58)
[2021-08-23] MEDS: Ziprasidone Mesylate 20 MG VIAL IM (13:58)
[2021-08-23] MEDS: Acetaminophen 325 MG TABLET 650 MG PO (16:11)
[2021-08-23] MEDS: Ibuprofen 400 MG TABLET PO (17:17)
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
[2021-08-23] MEDS: Artificial Tears 15 ML DROPS 1 DROP EYE-BOTH ×2 (18:04→23:47)
[2021-08-23] MEDS: Melatonin 3 MG TABLET 9 MG PO (20:31)
[2021-08-23] MEDS: cloNIDine HCL 0.1 MG TABLET PO (20:32)
[2021-08-23] MEDS: QUEtiapine Fumarate 200 MG TABLET PO (20:32)
[2021-08-23 20:37] VITALS: BP 124/68; PULSE 92; TEMP 36.3; O2SAT 97
[2021-08-23 20:38] VITALS: BP 127/79; PULSE 98
[2021-08-23] MEDS: Divalproex Sodium Sprinkles 125 MG CAP.DR.SPR 500 MG PO (21:23)
[2021-08-23] MEDS: hydrOXYzine HCL 25 MG TABLET PO (23:48)
[2021-08-23] MEDS: Benzocaine 20 % Oral Gel 9 GM TUBE 1 APPL MUCOUS MEM (23:48)
[2021-08-24] MEDS: Lidocaine 4 % Patch ADH..PATCH 1 PATCH TRANSDERMA ×3 (04:53→08:42)
[2021-08-24] MEDS: Ibuprofen 400 MG TABLET PO (05:01)
[2021-08-24 08:00] VITALS: BP 122/78; PULSE 105; TEMP 36.2; O2SAT 98
[2021-08-24] MEDS: Sennosides/Docusate Sodium TABLET 1 TAB PO ×2 (08:42→20:22)
[2021-08-24] MEDS: Multivitamin TABLET 1 TAB PO (08:42)
[2021-08-24] MEDS: clonazePAM 1 MG TABLET PO ×2 (08:42→20:22)
[2021-08-24] MEDS: rOPINIRole HCL 0.5 MG TABLET PO ×2 (08:42→20:22)
[2021-08-24] MEDS: Gabapentin 300 MG CAPSULE PO (08:42)
[2021-08-24] MEDS: Nicotine Polacrilex 2 MG GUM BUCCAL ×4 (09:03→21:51)
[2021-08-24] MEDS: Lithium Carbonate 300 MG TABLET 150 MG PO ×2 (12:11→20:22)
[2021-08-24] MEDS: Aspirin Enteric Coated 325 MG TABLET.DR 650 MG PO (14:54)
[2021-08-24] MEDS: Acetaminophen 325 MG TABLET 650 MG PO (14:54)
--- NOTE | 2021-08-24 15:17 | HO.PSYCHPN ---
Subjective Subjective Date of Service: 08/24/21 Reason For Visit: Bipolar, Schizoaffective Interim History: pt quite active in the milieu, seeking MD out multiple times throughout the day, asking for walker. during primary interview, which lasted about 45 minutes, pt made numerous requests including a walker, tegretol, med ed about tegretol, DC of tegretol, start of lithium, increase in gabapentin, continue to take PCN due to dental infection. she was disorganized and pressured. also asked for DC of vraylar and to not be given IM of geodon moving forward bcse it made her brain fuzzy. per staff, intrusive, lacking insight. wearing clothing on head like a turban. got IMs yesterday at 3 pm for agitated behavior, throwing food. also attempted to spit on heating unit installer but was foiled by plexiglass. Mental Status Exam Mental Status Exam Narrative: Patient Appearance: Disheveled Patient Orientation: Person, Place, Time and Situation Level of Consciousness: Awake Patient Behavior: Restless, Belligerent and Impulsive Mood Description: Euphoric Affect Description: Labile and Expansive Ability to Follow Directions: Fair Speech Pattern: Perseverating, Pressured and Includes Profanity Delusions: Paranoid Ideation Thought Process: Racing (disorganized) Thought Content: negative for Suicidal Ideation or positive for Homicidal Ideation (can be threatening ) Abnormal Motor Activity Signs and Symptoms: Agitation and Hyperactivity Judgement: Poor (impaired) Diagnostics Vital Signs (24Hr): Vital Signs - 24 hr 08/23/21 20:37 08/23/21 20:38 08/24/21 08:00 Temperature 97.3 F 97.1 F Pulse Rate 92 98 105 H Blood Pressure 124/68 127/79 122/78 Pulse Oximetry 97 98 BMI result Body Mass Index 32.8 Medications Medications Current Medications Acetaminophen (Acetaminophen 325 Mg Tablet) 650 mg PO Q6H PRN PRN Reason: Headache/Pain Mild Scale (1-3) Last Admin: 08/24/21 14:54 Dose: 650 mg Documented by: Al Hydroxide/Mg Hydroxide (Magnesium Hydrox/Alum Hydrox 30 Ml Oral.Susp) 30 ml PO Q6H PRN PRN Reason: Heartburn/Nausea Last Admin: 08/22/21 05:54 Dose: 30 ml Documented by: Artificial Tears (Artificial Tears 15 Ml Drops) 2 drop EYE-BOTH Q4H PRN PRN Reason: dry eyes Last Admin: 08/20/21 12:23 Dose: 2 drop Documented by: Artificial Tears (Artificial Tears 15 Ml Drops) 1 drop EYE-BOTH Q4H PRN PRN Reason: Dry Eyes Last Admin: 08/23/21 23:47 Dose: 1 drop Documented by: Aspirin (Aspirin Enteric Coated 325 Mg Tablet.) 650 mg PO DAILY PRN PRN Reason: headache Last Admin: 08/24/21 14:54 Dose: 650 mg Documented by: Benzocaine (Benzocaine 20 % Oral Gel 9 Gm Tube) 1 appl MUCOUS MEM QID PRN; Protocol PRN Reason: Mouth Sore Pain Last Admin: 08/23/21 23:48 Dose: 1 appl Documented by: Clonazepam (Clonazepam 1 Mg Tablet) 1 mg PO BID [facility] Last Admin: 08/24/21 08:42 Dose: 1 mg Documented by: Clonidine HCl (Clonidine Hcl 0.1 Mg Tablet) 0.1 mg PO BEDTIME [facility]; Protocol Last Admin: 08/23/21 20:32 Dose: 0.1 mg Documented by: Gabapentin (Gabapentin 300 Mg Capsule) 600 mg PO BID [facility] Hydroxyzine HCl (Hydroxyzine Hcl 25 Mg Tablet) 25 mg PO BEDTIME PRN PRN Reason: Anxiety Last Admin: 08/23/21 23:48 Dose: 25 mg Documented by: Lidocaine (Lidocaine 4 % Patch Adh..Patch) 1 patch TRANSDERMA DAILY [facility]; Protocol Last Admin: 08/24/21 08:41 Dose: 1 patch Documented by: Lidocaine (Lidocaine 4 % Patch Adh..Patch) 1 patch TRANSDERMA DAILY [facility]; Protocol Last Admin: 08/24/21 08:42 Dose: 1 patch Documented by: [place] Carbonate ([place] Carbonate 300 Mg Tablet) 150 mg PO BID [facility] Last Admin: 08/24/21 12:11 Dose: 150 mg Documented by: Magnesium Citrate (Magnesium Citrate 300 Ml Solution) 300 ml PO DAILY PRN PRN Reason: Constipation Magnesium Hydroxide (Milk Of Magnesia 30 Ml Oral.Susp) 30 ml PO DAILY PRN PRN Reason: Constipation Last Admin: 08/22/21 10:01 Dose: 30 ml Documented by: Melatonin (Melatonin 3 Mg Tablet) 9 mg PO BEDTIME [facility] Last Admin: 08/23/21 20:31 Dose: 9 mg Documented by: Multi-Ingred Cream/Lotion/Oil/Oint (Mineral Oil/Petrolatum,White 106 Gm Tube) 1 appl TOPICAL BID [facility]; Protocol Multivitamins/Vitamin C (Multivitamin Tablet) 1 tab PO DAILY [facility] Last Admin: 08/24/21 08:42 Dose: 1 tab Documented by: Nicotine Polacrilex (Nicotine Polacrilex 2 Mg Gum) 2 mg BUCCAL Q2H PRN PRN Reason: Nicotine Cravings Last Admin: 08/24/21 14:54 Dose: 2 mg Documented by: Quetiapine Fumarate (Quetiapine Fumarate 100 Mg Tablet) 100 mg PO Q6H PRN PRN Reason: anxiety/restlessness Last Admin: 08/23/21 13:00 Dose: 100 mg Documented by: Quetiapine Fumarate (Quetiapine Fumarate 200 Mg Tablet) 200 mg PO BEDTIME [facility] Last Admin: 08/23/21 20:32 Dose: 200 mg Documented by: Ropinirole HCl (Ropinirole Hcl 0.5 Mg Tablet) 0.5 mg PO BID [facility] Last Admin: 08/24/21 08:42 Dose: 0.5 mg Documented by: Senna/Docusate Sodium (Sennosides/Docusate Sodium Tablet) 1 tab PO BID [facility] Last Admin: 08/24/21 08:42 Dose: 1 tab Documented by: Allergies Allergies Allergy/AdvReac Type Severity Reaction Status Date / Time aripiprazole [From Abilify] Allergy Unknown Involuntary Verified 08/19/21 07:20 Spasms chlorpromazine Allergy Unknown Nausea and Verified 08/19/21 07:20 [From Thorazine] Vomiting haloperidol [From Haldol] Allergy Unknown Involuntary Verified 08/19/21 07:20 Spasms olanzapine [From Zyprexa] Allergy Unknown Involuntary Verified 08/19/21 07:20 Spasms paliperidone [From Invega] Allergy Unknown Hallucinati Verified 08/19/21 07:20 ons risperidone Allergy Unknown Involuntary Verified 08/19/21 07:20 Spasms Assessment & Plan Assessment & Plan (1) Schizoaffective disorder, bipolar type: Status: Acute Code(s): F25.0 - Schizoaffective disorder, bipolar type Assessment and Plan: Pt is a 55 y.o. Female who carries a diagnosis of schizoaffective disorder, bipolar type. Pt presented to [facility] from [facility] ED due to disorganized behavior, paranoid thought content, and racing thoughts. In the ED, pt was prescribed gabapentin 300 mg, ativan 1 mg, seroquel 200 mg. However, she intermittently refused seroquel due to reported akathesia, stating ?it will make me flop like a fish all night.? Plan: Pt was hypertensive, given clonidine 0.1 mg QHS due to BP of 169/84, 173/85mmHg. Pt willing to take seroquel 50 mg BID with requip 0.5 mg BID to treat akathesia. Will trial vraylar 1.5 mg to target manic and psychotic sx, as pt reports being unable to tolerate multiple typical and atypical agents. She is also unwilling to take any mood stabilizer that requires lab monitoring. Will continue gabapentin 300 mg BID for mood stability, anxiety, as well as to help with sciatica. PLAN 1. Discontinued Vraylar / at pt request 2. Started depakote 500mg po BID, clonazepam 1mg po BID. DCed VPA 08/24 at pt request as she agreed to start lithium. 3. Aftercare planning I spent minutes with the patient and/or on the patient floor today, greater than?50% of which was spent counseling/coordinating care. Reason for contiued inpatient stay Substantial Risk for: inability to function and rapid decompensation
[2021-08-24] MEDS: Artificial Tears 15 ML DROPS 1 DROP EYE-BOTH ×2 (16:45→21:51)
[2021-08-24] MEDS: QUEtiapine Fumarate 100 MG TABLET PO (16:45)
[2021-08-24] MEDS: Melatonin 3 MG TABLET 9 MG PO (20:21)
[2021-08-24] MEDS: Gabapentin 300 MG CAPSULE 600 MG PO (20:21)
[2021-08-24] MEDS: QUEtiapine Fumarate 200 MG TABLET PO (20:22)
[2021-08-24] MEDS: cloNIDine HCL 0.1 MG TABLET PO (20:22)
[2021-08-24 20:25] VITALS: BP 133/78; PULSE 87; O2SAT 100
[2021-08-24] MEDS: Mineral Oil/Petrolatum,White 106 GM Tube 1 APPL TOPICAL (21:51)
[2021-08-25 08:00] VITALS: BP 131/92; PULSE 81; RESP 18; TEMP 35.9; O2SAT 98
[2021-08-25] MEDS: Sennosides/Docusate Sodium TABLET 1 TAB PO ×2 (08:56→21:27)
[2021-08-25] MEDS: rOPINIRole HCL 0.5 MG TABLET PO ×2 (08:56→21:26)
[2021-08-25] MEDS: clonazePAM 1 MG TABLET PO ×2 (08:56→21:29)
[2021-08-25] MEDS: Lithium Carbonate 300 MG TABLET 150 MG PO (08:57)
[2021-08-25] MEDS: Gabapentin 300 MG CAPSULE 600 MG PO ×2 (08:57→21:25)
[2021-08-25] MEDS: Multivitamin TABLET 1 TAB PO (08:57)
[2021-08-25] MEDS: Mineral Oil/Petrolatum,White 106 GM Tube 1 APPL TOPICAL ×2 (09:03→21:30)
[2021-08-25] MEDS: QUEtiapine Fumarate 100 MG TABLET PO ×2 (10:02→17:25)
[2021-08-25] MEDS: Nicotine Polacrilex 2 MG GUM BUCCAL ×3 (10:05→21:29)
[2021-08-25] MEDS: Benzocaine 20 % Oral Gel 9 GM TUBE 1 APPL MUCOUS MEM (10:05)
[2021-08-25] MEDS: Artificial Tears 15 ML DROPS 1 DROP EYE-BOTH ×2 (10:07→21:32)
--- NOTE | 2021-08-25 11:51 | PC.NURSE ---
Patient to be transferred to , All belongings taken with patient. Accompanied by staff.
--- NOTE | 2021-08-25 12:19 | HO.PSYCHPN ---
Subjective Subjective Date of Service: 08/25/21 Reason For Visit: Bipolar, Schizoaffective Interim History: pt seen this morning, presentation similar to yesterday. pressured, dismissive of concern she has vasquez. refusing to take more than 150 mg lithium BID. informed her of administrative transfer today. asking for walker, fresh air. per staff, not attending groups. pressured, uncooperative, intrusive. blcoked entrance to her room with a chair. drawing on latif. Mental Status Exam Mental Status Exam Narrative: Patient Appearance: Disheveled Patient Orientation: Person, Place, Time and Situation Level of Consciousness: Awake Patient Behavior: Restless, Belligerent and Impulsive Mood Description: Euphoric Affect Description: Labile and Expansive Ability to Follow Directions: Fair Speech Pattern: Perseverating and Pressured Delusions: Paranoid Ideation Thought Process: Racing (disorganized) Thought Content: negative for Suicidal Ideation or positive for Homicidal Ideation (can be threatening ) Abnormal Motor Activity Signs and Symptoms: Agitation and Hyperactivity Judgement: Poor (impaired) Diagnostics Vital Signs (24Hr): Vital Signs - 24 hr 08/24/21 20:25 08/25/21 08:00 Temperature 96.6 F L Pulse Rate 87 81 Respiratory Rate 18 Blood Pressure 133/78 131/92 H Pulse Oximetry 100 98 BMI result Body Mass Index 32.8 Medications Medications Current Medications Acetaminophen (Acetaminophen 325 Mg Tablet) 650 mg PO Q6H PRN PRN Reason: Headache/Pain Mild Scale (1-3) Last Admin: 08/24/21 14:54 Dose: 650 mg Documented by: Al Hydroxide/Mg Hydroxide (Magnesium Hydrox/Alum Hydrox 30 Ml Oral.Susp) 30 ml PO Q6H PRN PRN Reason: Heartburn/Nausea Last Admin: 08/22/21 05:54 Dose: 30 ml Documented by: Artificial Tears (Artificial Tears 15 Ml Drops) 2 drop EYE-BOTH Q4H PRN PRN Reason: dry eyes Last Admin: 08/20/21 12:23 Dose: 2 drop Documented by: Artificial Tears (Artificial Tears 15 Ml Drops) 1 drop EYE-BOTH Q4H PRN PRN Reason: Dry Eyes Last Admin: 08/25/21 10:07 Dose: 1 drop Documented by: Aspirin (Aspirin Enteric Coated 325 Mg Tablet.) 650 mg PO DAILY PRN PRN Reason: headache Last Admin: 08/24/21 14:54 Dose: 650 mg Documented by: Benzocaine (Benzocaine 20 % Oral Gel 9 Gm Tube) 1 appl MUCOUS MEM QID PRN; Protocol PRN Reason: Mouth Sore Pain Last Admin: 08/25/21 10:05 Dose: 1 appl Documented by: Clonazepam (Clonazepam 1 Mg Tablet) 1 mg PO BID [facility] Last Admin: 08/25/21 08:56 Dose: 1 mg Documented by: Clonidine HCl (Clonidine Hcl 0.1 Mg Tablet) 0.1 mg PO BEDTIME [facility]; Protocol Last Admin: 08/24/21 20:22 Dose: 0.1 mg Documented by: Gabapentin (Gabapentin 300 Mg Capsule) 600 mg PO BID [facility] Last Admin: 08/25/21 08:57 Dose: 600 mg Documented by: Hydroxyzine HCl (Hydroxyzine Hcl 25 Mg Tablet) 25 mg PO BEDTIME PRN PRN Reason: Anxiety Last Admin: 08/23/21 23:48 Dose: 25 mg Documented by: Lidocaine (Lidocaine 4 % Patch Adh..Patch) 1 patch TRANSDERMA DAILY [facility]; Protocol Last Admin: 08/25/21 09:45 Dose: Not Given Documented by: Lidocaine (Lidocaine 4 % Patch Adh..Patch) 1 patch TRANSDERMA DAILY [facility]; Protocol Last Admin: 08/24/21 08:42 Dose: 1 patch Documented by: [place] Carbonate ([place] Carbonate 300 Mg Tablet) 150 mg PO BID [facility] Last Admin: 08/25/21 08:57 Dose: 150 mg Documented by: Magnesium Citrate (Magnesium Citrate 300 Ml Solution) 300 ml PO DAILY PRN PRN Reason: Constipation Magnesium Hydroxide (Milk Of Magnesia 30 Ml Oral.Susp) 30 ml PO DAILY PRN PRN Reason: Constipation Last Admin: 08/22/21 10:01 Dose: 30 ml Documented by: Melatonin (Melatonin 3 Mg Tablet) 9 mg PO BEDTIME [facility] Last Admin: 08/24/21 20:21 Dose: 9 mg Documented by: Multi-Ingred Cream/Lotion/Oil/Oint (Mineral Oil/Petrolatum,White 106 Gm Tube) 1 appl TOPICAL BID [facility]; Protocol Last Admin: 08/25/21 09:03 Dose: 1 appl Documented by: Multivitamins/Vitamin C (Multivitamin Tablet) 1 tab PO DAILY [facility] Last Admin: 08/25/21 08:57 Dose: 1 tab Documented by: Nicotine Polacrilex (Nicotine Polacrilex 2 Mg Gum) 2 mg BUCCAL Q2H PRN PRN Reason: Nicotine Cravings Last Admin: 08/25/21 10:05 Dose: 2 mg Documented by: Quetiapine Fumarate (Quetiapine Fumarate 100 Mg Tablet) 100 mg PO Q6H PRN PRN Reason: anxiety/restlessness Last Admin: 08/25/21 10:02 Dose: 100 mg Documented by: Quetiapine Fumarate (Quetiapine Fumarate 200 Mg Tablet) 200 mg PO BEDTIME [facility] Last Admin: 08/24/21 20:22 Dose: 200 mg Documented by: Ropinirole HCl (Ropinirole Hcl 0.5 Mg Tablet) 0.5 mg PO BID [facility] Last Admin: 08/25/21 08:56 Dose: 0.5 mg Documented by: Senna/Docusate Sodium (Sennosides/Docusate Sodium Tablet) 1 tab PO BID [facility] Last Admin: 08/25/21 08:56 Dose: 1 tab Documented by: Allergies Allergies Allergy/AdvReac Type Severity Reaction Status Date / Time aripiprazole [From Abilify] Allergy Unknown Involuntary Verified 08/19/21 07:20 Spasms chlorpromazine Allergy Unknown Nausea and Verified 08/19/21 07:20 [From Thorazine] Vomiting haloperidol [From Haldol] Allergy Unknown Involuntary Verified 08/19/21 07:20 Spasms olanzapine [From Zyprexa] Allergy Unknown Involuntary Verified 08/19/21 07:20 Spasms paliperidone [From Invega] Allergy Unknown Hallucinati Verified 08/19/21 07:20 ons risperidone Allergy Unknown Involuntary Verified 08/19/21 07:20 Spasms Assessment & Plan Assessment & Plan (1) Schizoaffective disorder, bipolar type: Status: Acute Code(s): F25.0 - Schizoaffective disorder, bipolar type Assessment and Plan: Pt is a 55 y.o. Female who carries a diagnosis of schizoaffective disorder, bipolar type. Pt [place] [facility] [place] [facility] ED due to disorganized behavior, paranoid thought content, and racing thoughts. In the ED, pt was prescribed gabapentin 300 mg, ativan 1 mg, seroquel 200 mg. However, she intermittently refused seroquel due to reported akathesia, stating ?it will make me flop like a fish all night.? Plan: Pt was hypertensive, given clonidine 0.1 mg QHS due to BP of 169/84, 173/85mmHg. Pt willing to take seroquel 50 mg BID with requip 0.5 mg BID to treat akathesia. Will trial vraylar 1.5 mg to target manic and psychotic sx, as pt reports being unable to tolerate multiple typical and atypical agents. She is also unwilling to take any mood stabilizer that requires lab monitoring. Will continue gabapentin 300 mg BID for anxiety, as well as to help with sciatica. PLAN 1. Discontinued Vraylar / at pt request 2. Started depakote 500mg po BID, clonazepam 1mg po BID. DCed VPA 08/24 at pt request as she agreed to start lithium. refusing to take more than 150 mg BID of lithium. 3. Aftercare planning I spent minutes with the patient and/or on the patient floor today, greater than?50% of which was spent counseling/coordinating care. Reason for contiued inpatient stay Substantial Risk for: inability to function and rapid decompensation
--- NOTE | 2021-08-25 14:20 | PC.NURSE ---
Patient transferred from this morning. Walked to unit with [facility] staff and security. Patient was calm and cooperative during transfer. Oriented to unit and settled in room. No behavioral issues at this time.Patient appears disheveled. Clothing soiled with food. Alert and oriented to self and place with no insight into situation.
[2021-08-25 18:00] VITALS: BP 110/63; PULSE 108; RESP 16; TEMP 36.9; O2SAT 98
[2021-08-25] MEDS: cloNIDine HCL 0.1 MG TABLET PO (21:26)
[2021-08-25] MEDS: Melatonin 3 MG TABLET 9 MG PO (21:27)
[2021-08-25 22:11] VITALS: BP 175/71; PULSE 88; RESP 16; TEMP 36.5; O2SAT 99
[2021-08-25] MEDS: QUEtiapine Fumarate 200 MG TABLET PO (22:57)
[2021-08-26] MEDS: Magnesium Citrate 300 ML SOLUTION PO (05:34)
[2021-08-26 05:40] VITALS: BP 103/70; PULSE 66; RESP 16; TEMP 36.2; O2SAT 100
[2021-08-26 06:00] VITALS: RESP 16; O2SAT 100
[2021-08-26] MEDS: clonazePAM 1 MG TABLET PO ×2 (09:31→19:55)
[2021-08-26] MEDS: rOPINIRole HCL 0.5 MG TABLET PO ×2 (09:31→19:56)
[2021-08-26] MEDS: Multivitamin TABLET 1 TAB PO (09:31)
[2021-08-26] MEDS: Gabapentin 300 MG CAPSULE 600 MG PO ×2 (09:31→19:56)
[2021-08-26] MEDS: Sennosides/Docusate Sodium TABLET 1 TAB PO ×2 (09:32→19:56)
[2021-08-26] MEDS: Mineral Oil/Petrolatum,White 106 GM Tube 1 APPL TOPICAL ×2 (12:40→20:20)
[2021-08-26] MEDS: Lidocaine 4 % Patch ADH..PATCH 1 PATCH TRANSDERMA ×2 (12:51→12:52)
--- NOTE | 2021-08-26 12:51 | HO.PSYCHPN ---
Subjective Subjective Date of Service: 08/26/21 Reason For Visit: Bipolar, Schizoaffective Subjective Notes: Conditional Voluntary Healthcare Proxy: No Guardianship: No Medical Problems Affecting Mental Status: No Interim History: Labile, confused, disoriented at times, disorganized. Opposed to many medications which will assist her in mood mgt. 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 Review of medications, suggestions for stabilization of mood. Medication Compliance: Intermittent Side effects from medications: No Attending Groups: No Review of Systems Acute medical concerns: No Medical Review of Systems: unchanged Review of Systems Musculoskeletal: Reports other (sciatica) Reports behavioral changes, Reports confusion and Reports memory loss Psychiatric: Reports abnormal sleep pattern, Reports anxiety, Reports behavioral changes, Reports change in appetite, Reports confusion, Reports depression, Reports difficulty concentrating, Reports auditory hallucinations, Reports hopelessness, Reports irritability, Reports anhedonia, Reports memory loss, Reports mood swings, Reports paranoia, Reports visual hallucinations and Reports hallucinations Mental Status Exam Mental Status Exam Narrative: Patient Appearance: Disheveled Patient Orientation: Person, Place, Time and Situation Level of Consciousness: Awake Patient Behavior: Restless, Belligerent and Impulsive Mood Description: Euphoric Affect Description: Labile and Expansive Ability to Follow Directions: Fair Speech Pattern: Perseverating and Pressured Delusions: Paranoid Ideation Thought Process: Racing (disorganized) Thought Content: negative for Suicidal Ideation or positive for Homicidal Ideation (can be threatening ) Abnormal Motor Activity Signs and Symptoms: Agitation and Hyperactivity Judgement: Poor (impaired) Diagnostics Vital Signs (24Hr): Vital Signs - 24 hr 08/25/21 18:00 08/25/21 22:11 08/26/21 05:40 Temperature 98.4 F 97.7 F 97.2 F Pulse Rate 108 H 88 66 Respiratory Rate 16 16 16 Blood Pressure 110/63 175/71 H 103/70 Pulse Oximetry 98 99 100 08/26/21 06:00 Temperature Pulse Rate Respiratory Rate 16 Blood Pressure Pulse Oximetry 100 BMI result Body Mass Index 32.8 Medications Medications Current Medications Acetaminophen (Acetaminophen 325 Mg Tablet) 650 mg PO Q6H PRN PRN Reason: Headache/Pain Mild Scale (1-3) Last Admin: 08/24/21 14:54 Dose: 650 mg Documented by: Al Hydroxide/Mg Hydroxide (Magnesium Hydrox/Alum Hydrox 30 Ml Oral.Susp) 30 ml PO Q6H PRN PRN Reason: Heartburn/Nausea Last Admin: 08/22/21 05:54 Dose: 30 ml Documented by: Artificial Tears (Artificial Tears 15 Ml Drops) 2 drop EYE-BOTH Q4H PRN PRN Reason: dry eyes Last Admin: 08/20/21 12:23 Dose: 2 drop Documented by: Artificial Tears (Artificial Tears 15 Ml Drops) 1 drop EYE-BOTH Q4H PRN PRN Reason: Dry Eyes Last Admin: 08/25/21 21:32 Dose: 1 drop Documented by: Aspirin (Aspirin Enteric Coated 325 Mg Tablet.Dr) 650 mg PO DAILY PRN PRN Reason: headache Last Admin: 08/24/21 14:54 Dose: 650 mg Documented by: Benzocaine (Benzocaine 20 % Oral Gel 9 Gm Tube) 1 appl MUCOUS MEM QID PRN; Protocol PRN Reason: Mouth Sore Pain Last Admin: 08/25/21 10:05 Dose: 1 appl Documented by: Clonazepam (Clonazepam 1 Mg Tablet) 1 mg PO BID [facility] Last Admin: 08/26/21 09:31 Dose: 1 mg Documented by: Clonidine HCl (Clonidine Hcl 0.1 Mg Tablet) 0.1 mg PO BEDTIME [facility]; Protocol Last Admin: 08/25/21 21:26 Dose: 0.1 mg Documented by: Cyanocobalamin (Cyanocobalamin (Vitamin B-12) 100 Mcg Tablet) 100 mcg PO DAILY [facility] Gabapentin (Gabapentin 300 Mg Capsule) 600 mg PO BID [facility] Last Admin: 08/26/21 09:31 Dose: 600 mg Documented by: Hydroxyzine HCl (Hydroxyzine Hcl 25 Mg Tablet) 25 mg PO BEDTIME PRN PRN Reason: Anxiety Last Admin: 08/23/21 23:48 Dose: 25 mg Documented by: Lidocaine (Lidocaine 4 % Patch Adh..Patch) 1 patch TRANSDERMA DAILY [facility]; Protocol Last Admin: 08/25/21 09:45 Dose: Not Given Documented by: Lidocaine (Lidocaine 4 % Patch Adh..Patch) 1 patch TRANSDERMA DAILY [facility]; Protocol Last Admin: 08/24/21 08:42 Dose: 1 patch Documented by: [place] Carbonate ([place] Carbonate 300 Mg Tablet) 150 mg PO BID [facility] Last Admin: 08/25/21 21:28 Dose: Not Given Documented by: Magnesium Citrate (Magnesium Citrate 300 Ml Solution) 300 ml PO DAILY PRN PRN Reason: Constipation Last Admin: 08/26/21 05:34 Dose: 300 ml Documented by: Magnesium Hydroxide (Milk Of Magnesia 30 Ml Oral.Susp) 30 ml PO DAILY PRN PRN Reason: Constipation Last Admin: 08/22/21 10:01 Dose: 30 ml Documented by: Melatonin (Melatonin 3 Mg Tablet) 9 mg PO BEDTIME [facility] Last Admin: 08/25/21 21:27 Dose: 9 mg Documented by: Multi-Ingred Cream/Lotion/Oil/Oint (Mineral Oil/Petrolatum,White 106 Gm Tube) 1 appl TOPICAL BID [facility]; Protocol Last Admin: 08/25/21 21:30 Dose: 1 appl Documented by: Multivitamins/Vitamin C (Multivitamin Tablet) 1 tab PO DAILY [facility] Last Admin: 08/26/21 09:31 Dose: 1 tab Documented by: Nicotine Polacrilex (Nicotine Polacrilex 2 Mg Gum) 2 mg BUCCAL Q2H PRN PRN Reason: Nicotine Cravings Last Admin: 08/25/21 21:29 Dose: 2 mg Documented by: Psyllium Hydrophilic Mucilloid (Psyllium Seed 3.4 Gm Powd.Pack) 3.4 gm PO DAILY [facility] Quetiapine Fumarate (Quetiapine Fumarate 100 Mg Tablet) 100 mg PO Q6H PRN PRN Reason: anxiety/restlessness Last Admin: 08/25/21 17:25 Dose: 100 mg Documented by: Quetiapine Fumarate (Quetiapine Fumarate 200 Mg Tablet) 200 mg PO BEDTIME [facility] Last Admin: 08/25/21 22:57 Dose: 200 mg Documented by: Ropinirole HCl (Ropinirole Hcl 0.5 Mg Tablet) 0.5 mg PO BID [facility] Last Admin: 08/26/21 09:31 Dose: 0.5 mg Documented by: Senna/Docusate Sodium (Sennosides/Docusate Sodium Tablet) 1 tab PO BID [facility] Last Admin: 08/26/21 09:32 Dose: 1 tab Documented by: Allergies Allergies Allergy/AdvReac Type Severity Reaction Status Date / Time aripiprazole [From [facility]] Allergy Unknown Involuntary Verified 08/19/21 07:20 Spasms chlorpromazine Allergy Unknown Nausea and Verified 12/30/21 07:20 [From Thorazine] Vomiting haloperidol [From Haldol] Allergy Unknown Involuntary Verified 08/19/21 07:20 Spasms olanzapine [From Zyprexa] Allergy Unknown Involuntary Verified 08/19/21 07:20 Spasms paliperidone [From Invega] Allergy Unknown Hallucinati Verified 08/19/21 07:20 ons risperidone Allergy Unknown Involuntary Verified 08/19/21 07:20 Spasms Assessment & Plan Assessment & Plan (1) Schizoaffective disorder, bipolar type: Status: Acute Code(s): F25.0 - Schizoaffective disorder, bipolar type Assessment and Plan: Pt is a 55 y.o. Female who carries a diagnosis of schizoaffective disorder, bipolar type. Pt presented to [facility] from [facility] ED due to disorganized behavior, paranoid thought content, and racing thoughts. In the ED, pt was prescribed gabapentin 300 mg, ativan 1 mg, seroquel 200 mg. However, she intermittently refused seroquel due to reported akathesia, stating ?it will make me flop like a fish all night.? Plan: Pt was hypertensive, given clonidine 0.1 mg QHS due to BP of 169/84, 173/85mmHg. Pt willing to take seroquel 50 mg BID with requip 0.5 mg BID to treat akathesia. Will trial vraylar 1.5 mg to target manic and psychotic sx, as pt reports being unable to tolerate multiple typical and atypical agents. She is also unwilling to take any mood stabilizer that requires lab monitoring. Will continue gabapentin 300 mg BID for anxiety, as well as to help with sciatica. PLAN 1. Discontinued Vraylar 1/ at pt request 2. Started depakote 500mg po BID, clonazepam 1mg po BID. DCed VPA / at pt request as she agreed to start lithium. refusing to take more than 150 mg BID of lithium. 3. Aftercare planning 08/26/21 Augmentin 125 mg bid for tooth loss Continue current regime. Pt declines other changes at this time. I spent 45 minutes with the patient and/or on the patient floor today, greater than?50% of which was spent counseling/coordinating care. Informed Consent: does not understand Reason for contiued inpatient stay Substantial Risk for: harm to self, harm to others, inability to function, rapid decompensation and med/psych decompensation
[2021-08-26 17:31] VITALS: PULSE 90; TEMP 37.1
[2021-08-26] MEDS: Acetaminophen 325 MG TABLET 650 MG PO (18:36)
[2021-08-26] MEDS: cloNIDine HCL 0.1 MG TABLET PO (19:53)
[2021-08-26] MEDS: Melatonin 3 MG TABLET 9 MG PO (19:54)
[2021-08-26] MEDS: Nicotine Polacrilex 2 MG GUM BUCCAL (19:56)
[2021-08-26] MEDS: QUEtiapine Fumarate 200 MG TABLET PO (20:22)
[2021-08-26] MEDS: Amoxicillin/Potassium Clav 250 MG TABLET 125 MG PO (22:38)
[2021-08-27] MEDS: Acetaminophen 325 MG TABLET 650 MG PO (04:27)
[2021-08-27] MEDS: Nicotine Polacrilex 2 MG GUM BUCCAL ×2 (04:29→16:25)
[2021-08-27 05:33] VITALS: BP 125/95; PULSE 87; RESP 18; TEMP 36.1; O2SAT 99
[2021-08-27] MEDS: Amoxicillin/Potassium Clav 250 MG TABLET 125 MG PO ×2 (06:00→17:47)
[2021-08-27] MEDS: Gabapentin 300 MG CAPSULE 600 MG PO ×3 (08:48→19:53)
[2021-08-27] MEDS: Sennosides/Docusate Sodium TABLET 1 TAB PO ×2 (08:48→19:53)
[2021-08-27] MEDS: Cyanocobalamin (Vitamin B-12) 100 MCG TABLET PO (08:49)
[2021-08-27] MEDS: clonazePAM 1 MG TABLET PO ×2 (08:49→19:53)
[2021-08-27] MEDS: Multivitamin TABLET 1 TAB PO (08:49)
[2021-08-27] MEDS: rOPINIRole HCL 0.5 MG TABLET PO ×2 (08:49→19:56)
[2021-08-27] MEDS: Lidocaine 4 % Patch ADH..PATCH 1 PATCH TRANSDERMA ×2 (09:38)
[2021-08-27] MEDS: Mineral Oil/Petrolatum,White 106 GM Tube 1 APPL TOPICAL (09:39)
[2021-08-27 14:45] VITALS: BP 125/95; PULSE 87; O2SAT 99
[2021-08-27] MEDS: Ibuprofen 800 MG TABLET PO (15:09)
[2021-08-27 17:34] VITALS: BP 166/75; PULSE 84; TEMP 37.1
[2021-08-27] MEDS: QUEtiapine Fumarate 100 MG TABLET PO (17:48)
--- NOTE | 2021-08-27 17:54 | HO.PSYCHPN ---
Subjective Subjective Date of Service: 08/27/21 Reason For Visit: Bipolar, Schizoaffective Subjective Notes: Conditional Voluntary Healthcare Proxy: No Guardianship: No Medical Problems Affecting Mental Status: No Interim History: Refusing [place]. Disorganized and disinhibited. Minimal awareness of environmental boundaries and of her impact upon the environment-smearing food, wearing underwear on her head. Verbalizations are tangential, loose, without logical process at times. Some history shared from out pt team. Serious history of aggression to animals. Several restraining orders in effect from neighbors, long history of decompensations. Medication Compliance: Intermittent Side effects from medications: No Attending Groups: No Review of Systems Acute medical concerns: No Medical Review of Systems: unchanged Review of Systems Musculoskeletal: Reports other (sciatica) Reports behavioral changes, Reports confusion and Reports memory loss Psychiatric: Reports abnormal sleep pattern, Reports anxiety, Reports behavioral changes, Reports change in appetite, Reports confusion, Reports depression, Reports difficulty concentrating, Reports auditory hallucinations, Reports hopelessness, Reports irritability, Reports anhedonia, Reports memory loss, Reports mood swings, Reports paranoia, Reports visual hallucinations and Reports hallucinations Mental Status Exam Mental Status Exam Narrative: Patient Appearance: Disheveled Patient Orientation: Person, Place, Time and Situation Level of Consciousness: Awake Patient Behavior: Restless, Belligerent and Impulsive Mood Description: Euphoric Affect Description: Labile and Expansive Ability to Follow Directions: Fair Speech Pattern: Perseverating and Pressured Delusions: Paranoid Ideation Thought Process: Racing (disorganized) Thought Content: negative for Suicidal Ideation or positive for Homicidal Ideation (can be threatening ) Abnormal Motor Activity Signs and Symptoms: Agitation and Hyperactivity Judgement: Poor (impaired) Diagnostics Vital Signs (24Hr): Vital Signs - 24 hr 08/27/21 05:33 08/27/21 14:45 08/27/21 17:34 Temperature 97.0 F 98.8 F Pulse Rate 87 87 84 Respiratory Rate 18 Blood Pressure 125/95 H 125/95 H 166/75 H Pulse Oximetry 99 99 BMI result Body Mass Index 32.8 Medications Medications Current Medications Acetaminophen (Acetaminophen 325 Mg Tablet) 650 mg PO Q6H PRN PRN Reason: Headache/Pain Mild Scale (1-3) Last Admin: 08/27/21 04:27 Dose: 650 mg Documented by: Al Hydroxide/Mg Hydroxide (Magnesium Hydrox/Alum Hydrox 30 Ml Oral.Susp) 30 ml PO Q6H PRN PRN Reason: Heartburn/Nausea Last Admin: 08/22/21 05:54 Dose: 30 ml Documented by: Amoxicillin/Clavulanate Potassium (Amoxicillin/Potassium Clav 250 Mg Tablet) 125 mg PO Q12H [facility] Stop: 09/02/21 18:59 Last Admin: 08/27/21 17:47 Dose: 125 mg Documented by: Artificial Tears (Artificial Tears 15 Ml Drops) 2 drop EYE-BOTH Q4H PRN PRN Reason: dry eyes Last Admin: 08/20/21 12:23 Dose: 2 drop Documented by: Artificial Tears (Artificial Tears 15 Ml Drops) 1 drop EYE-BOTH Q4H PRN PRN Reason: Dry Eyes Last Admin: 08/25/21 21:32 Dose: 1 drop Documented by: Aspirin (Aspirin Enteric Coated 325 Mg Tablet.Dr) 650 mg PO DAILY PRN PRN Reason: headache Last Admin: 08/24/21 14:54 Dose: 650 mg Documented by: Benzocaine (Benzocaine 20 % Oral Gel 9 Gm Tube) 1 appl MUCOUS MEM QID PRN; Protocol PRN Reason: Mouth Sore Pain Last Admin: 08/25/21 10:05 Dose: 1 appl Documented by: Clonazepam (Clonazepam 1 Mg Tablet) 1 mg PO BID [facility] Last Admin: 08/27/21 08:49 Dose: 1 mg Documented by: Clonidine HCl (Clonidine Hcl 0.1 Mg Tablet) 0.1 mg PO BEDTIME YAYA; Protocol Last Admin: 08/26/21 19:53 Dose: 0.1 mg Documented by: [place] Butter/Zinc Oxide ([place] Butter/Zinc Oxide Supp.Rect) 1 supp [place] BID PRN PRN Reason: hemorrhoid pain Cyanocobalamin (Cyanocobalamin (Vitamin B-12) 100 Mcg Tablet) 100 mcg PO DAILY [facility] Last Admin: 08/27/21 08:49 Dose: 100 mcg Documented by: Gabapentin (Gabapentin 300 Mg Capsule) 600 mg PO TID [facility] Last Admin: 08/27/21 15:08 Dose: 600 mg Documented by: Hydroxyzine HCl (Hydroxyzine Hcl 25 Mg Tablet) 25 mg PO BEDTIME PRN PRN Reason: Anxiety Last Admin: 08/23/21 23:48 Dose: 25 mg Documented by: Ibuprofen (Ibuprofen 800 Mg Tablet) 800 mg PO Q8H PRN PRN Reason: Pain, Mild (Pain Scale 1-3) Last Admin: 08/27/21 15:09 Dose: 800 mg Documented by: Lidocaine (Lidocaine 4 % Patch Adh..Patch) 1 patch TRANSDERMA DAILY [facility]; Protocol Last Admin: 08/27/21 09:38 Dose: 1 patch Documented by: Lidocaine (Lidocaine 4 % Patch Adh..Patch) 1 patch TRANSDERMA DAILY [facility]; Protocol Last Admin: 08/27/21 09:38 Dose: 1 patch Documented by: [place] Carbonate ([place] Carbonate 300 Mg Tablet) 150 mg PO BID YAYA Last Admin: 08/27/21 09:39 Dose: Not Given Documented by: Magnesium Citrate (Magnesium Citrate 300 Ml Solution) 300 ml PO DAILY PRN PRN Reason: Constipation Last Admin: 08/26/21 05:34 Dose: 300 ml Documented by: Magnesium Hydroxide (Milk Of Magnesia 30 Ml Oral.Susp) 30 ml PO DAILY PRN PRN Reason: Constipation Last Admin: 08/22/21 10:01 Dose: 30 ml Documented by: Melatonin (Melatonin 3 Mg Tablet) 9 mg PO BEDTIME YAYA Last Admin: 08/26/21 19:54 Dose: 9 mg Documented by: Multi-Ingred Cream/Lotion/Oil/Oint (Mineral Oil/Petrolatum,White 106 Gm Tube) 1 appl TOPICAL BID [facility]; Protocol Last Admin: 08/27/21 09:39 Dose: 1 appl Documented by: Multivitamins/Vitamin C (Multivitamin Tablet) 1 tab PO DAILY YAYA Last Admin: 08/27/21 08:49 Dose: 1 tab Documented by: Nicotine Polacrilex (Nicotine Polacrilex 2 Mg Gum) 2 mg BUCCAL Q2H PRN PRN Reason: Nicotine Cravings Last Admin: 08/27/21 16:25 Dose: 2 mg Documented by: Psyllium Hydrophilic Mucilloid (Psyllium Seed 3.4 Gm Powd.Pack) 3.4 gm PO DAILY [facility]AYA Last Admin: 08/27/21 08:54 Dose: 3.4 gm Documented by: Quetiapine Fumarate (Quetiapine Fumarate 100 Mg Tablet) 100 mg PO Q6H PRN PRN Reason: anxiety/restlessness Last Admin: 08/27/21 17:48 Dose: 50 mg Documented by: Quetiapine Fumarate (Quetiapine Fumarate 200 Mg Tablet) 200 mg PO BEDTIME YAYA Last Admin: 08/26/21 20:22 Dose: 200 mg Documented by: Ropinirole HCl (Ropinirole Hcl 0.5 Mg Tablet) 0.5 mg PO BID [facility] Last Admin: 08/27/21 08:49 Dose: 0.5 mg Documented by: Senna/Docusate Sodium (Sennosides/Docusate Sodium Tablet) 1 tab PO BID [facility] Last Admin: 08/27/21 08:48 Dose: 1 tab Documented by: Allergies Allergies Allergy/AdvReac Type Severity Reaction Status Date / Time aripiprazole [From Abilify] Allergy Unknown Involuntary Verified 08/19/21 07:20 Spasms chlorpromazine Allergy Unknown Nausea and Verified 08/19/21 07:20 [From Thorazine] Vomiting haloperidol [From Haldol] Allergy Unknown Involuntary Verified 08/19/21 07:20 Spasms olanzapine [From Zyprexa] Allergy Unknown Involuntary Verified 08/19/21 07:20 Spasms paliperidone [From Invega] Allergy Unknown Hallucinati Verified 08/19/21 07:20 ons risperidone Allergy Unknown Involuntary Verified 08/19/21 07:20 Spasms Assessment & Plan Assessment & Plan (1) Schizoaffective disorder, bipolar type: Status: Acute Code(s): F25.0 - Schizoaffective disorder, bipolar type Assessment and Plan: Pt is a 55 y.o. Female who carries a diagnosis of schizoaffective disorder, bipolar type. Pt presented to [facility] from [facility] ED due to disorganized behavior, paranoid thought content, and racing thoughts. In the ED, pt was prescribed gabapentin 300 mg, ativan 1 mg, seroquel 200 mg. However, she intermittently refused seroquel due to reported akathesia, stating ?it will make me flop like a fish all night.? Plan: Pt was hypertensive, given clonidine 0.1 mg QHS due to BP of 169/84, 173/85mmHg. Pt willing to take seroquel 50 mg BID with requip 0.5 mg BID to treat akathesia. Will trial vraylar 1.5 mg to target manic and psychotic sx, as pt reports being unable to tolerate multiple typical and atypical agents. She is also unwilling to take any mood stabilizer that requires lab monitoring. Will continue gabapentin 300 mg BID for anxiety, as well as to help with sciatica. PLAN 1. Discontinued Vraylar 08/24 at pt request 2. Started depakote 500mg po BID, clonazepam 1mg po BID. DCed VPA 08/24 at pt request as she agreed to start lithium. refusing to take more than 150 mg BID of lithium. 3. Aftercare planning 08/26/21 Augmentin 125 mg bid for tooth loss Continue current regime. Pt declines other changes at this time. 08/27/21 Increase Gabapentin to 600 mg tid Ibuprofen prn Hemorrhoid suppository prn PT reports pt is not in need of a walker. I spent 25 minutes with the patient and/or on the patient floor today, greater than?50% of which was spent counseling/coordinating care. Informed Consent: does not understand Reason for contiued inpatient stay Substantial Risk for: harm to self, harm to others, inability to function, rapid decompensation and med/psych decompensation
[2021-08-27] MEDS: cloNIDine HCL 0.1 MG TABLET PO (19:57)
[2021-08-27] MEDS: QUEtiapine Fumarate 200 MG TABLET PO (19:58)
[2021-08-27] MEDS: Melatonin 3 MG TABLET 9 MG PO (19:58)
[2021-08-28] MEDS: Nicotine Polacrilex 2 MG GUM BUCCAL ×5 (03:53→23:20)
[2021-08-28] MEDS: Ibuprofen 800 MG TABLET PO ×2 (03:53→11:12)
[2021-08-28 05:23] VITALS: BP 140/80; PULSE 81; TEMP 36.4
[2021-08-28] MEDS: Amoxicillin/Potassium Clav 250 MG TABLET 125 MG PO ×2 (06:05→18:32)
[2021-08-28] MEDS: clonazePAM 1 MG TABLET PO ×2 (08:57→20:54)
[2021-08-28] MEDS: rOPINIRole HCL 0.5 MG TABLET PO ×2 (08:57→20:53)
[2021-08-28] MEDS: Lithium Carbonate 300 MG TABLET 150 MG PO (08:58)
[2021-08-28] MEDS: Gabapentin 300 MG CAPSULE 600 MG PO ×3 (08:58→20:54)
[2021-08-28] MEDS: Cyanocobalamin (Vitamin B-12) 100 MCG TABLET PO (08:58)
[2021-08-28] MEDS: Sennosides/Docusate Sodium TABLET 1 TAB PO ×2 (08:59→20:53)
[2021-08-28] MEDS: Multivitamin TABLET 1 TAB PO (08:59)
[2021-08-28] MEDS: Lidocaine 4 % Patch ADH..PATCH 1 PATCH TRANSDERMA ×2 (08:59)
[2021-08-28] MEDS: Artificial Tears 15 ML DROPS 1 DROP EYE-BOTH (09:35)
[2021-08-28] MEDS: Aspirin Enteric Coated 325 MG TABLET.DR 650 MG PO (11:13)
--- NOTE | 2021-08-28 11:17 | P.PNPSI_ITS ---
Subjective Subjective Date of Service: 08/28/21 Reason For Visit: Bipolar, Schizoaffective Interim History: Pt intrusive with peers, overly visible in unit trying to fix internet connection. Pt reports having sex with male RN last night and now is with 4 babies. Pt initially declined lithium but later agreed to take stating it is not good for baby. Labile, irritable, at times throwing trays to peers and needing redirection. She denies SI/HI. Medication Compliance: No Side effects from medications: No Review of Systems Review of Systems CVS: No c/o chest pain, palpitations, no SOB BPM ANALYST: No c/o dizziness, headache GI: No c/o Nausea, Vomiting, diarrhea, constipation or heartburn Yes all other systems are reviewed and are negative Musculoskeletal: Reports other (sciatica) Reports behavioral changes, Reports confusion and Reports memory loss Psychiatric: Reports abnormal sleep pattern, Reports anxiety, Reports behavioral changes, Reports change in appetite, Reports confusion, Reports depression, Reports difficulty concentrating, Reports auditory hallucinations, Reports hopelessness, Reports irritability, Reports anhedonia, Reports memory loss, Reports mood swings, Reports paranoia, Reports visual hallucinations and Reports hallucinations Mental Status Exam Mental Status Exam Narrative: Patient Appearance:?Disheveled Patient Orientation:?Person, Place, Time and Situation Level of Consciousness:?Awake Patient Behavior:?Restless, Belligerent and Impulsive Mood Description:?Euphoric Affect Description:?Labile and Expansive Ability to Follow Directions:?Fair Speech Pattern:?Perseverating, Pressured and Includes Profanity Delusions:?Paranoid Ideation Thought Process:?Racing (disorganized) Thought Content:?negative for Suicidal Ideation or positive for Homicidal Ideation (can be threatening ) Abnormal Motor Activity Signs and Symptoms:?Agitation and Hyperactivity Judgement:?Poor (impaired) Diagnostics Vital Signs (24Hr): BMI result Body Mass Index 32.8 Medications Medications Current Medications Acetaminophen (Acetaminophen 325 Mg Tablet) 650 mg PO Q6H PRN PRN Reason: Headache/Pain Mild Scale (1-3) Last Admin: 08/27/21 04:27 Dose: 650 mg Documented by: Al Hydroxide/Mg Hydroxide (Magnesium Hydrox/Alum Hydrox 30 Ml Oral.Susp) 30 ml PO Q6H PRN PRN Reason: Heartburn/Nausea Last Admin: 08/22/21 05:54 Dose: 30 ml Documented by: Amoxicillin/Clavulanate Potassium (Amoxicillin/Potassium Clav 250 Mg Tablet) 125 mg PO Q12H [facility] Stop: 09/02/21 18:59 Last Admin: 08/29/21 05:55 Dose: 125 mg Documented by: Artificial Tears (Artificial Tears 15 Ml Drops) 2 drop EYE-BOTH Q4H PRN PRN Reason: dry eyes Last Admin: 08/20/21 12:23 Dose: 2 drop Documented by: Artificial Tears (Artificial Tears 15 Ml Drops) 1 drop EYE-BOTH Q4H PRN PRN Reason: Dry Eyes Last Admin: 08/28/21 09:35 Dose: 1 drop Documented by: Aspirin (Aspirin Enteric Coated 325 Mg Tablet.Dr) 650 mg PO DAILY PRN PRN Reason: headache Last Admin: 08/28/21 11:13 Dose: 650 mg Documented by: Benzocaine (Benzocaine 20 % Oral Gel 9 Gm Tube) 1 appl MUCOUS MEM QID PRN; Protocol PRN Reason: Mouth Sore Pain Last Admin: 08/25/21 10:05 Dose: 1 appl Documented by: Clonazepam (Clonazepam 1 Mg Tablet) 1 mg PO BID [facility] Last Admin: 08/29/21 08:10 Dose: 1 mg Documented by: Clonidine HCl (Clonidine Hcl 0.1 Mg Tablet) 0.1 mg PO BEDTIME YAYA; Protocol Last Admin: 08/28/21 20:59 Dose: Not Given Documented by: [place] Butter/Zinc Oxide ([place] Butter/Zinc Oxide Supp.Rect) 1 supp [place] BID PRN PRN Reason: hemorrhoid pain Cyanocobalamin (Cyanocobalamin (Vitamin B-12) 100 Mcg Tablet) 100 mcg PO DAILY [facility] Last Admin: 08/29/21 08:10 Dose: 100 mcg Documented by: Gabapentin (Gabapentin 300 Mg Capsule) 600 mg PO TID [facility] Last Admin: 08/29/21 08:10 Dose: 600 mg Documented by: Hydroxyzine HCl (Hydroxyzine Hcl 25 Mg Tablet) 25 mg PO BEDTIME PRN PRN Reason: Anxiety Last Admin: 08/29/21 06:21 Dose: 25 mg Documented by: Ibuprofen (Ibuprofen 800 Mg Tablet) 800 mg PO Q8H PRN PRN Reason: Pain, Mild (Pain Scale 1-3) Last Admin: 08/29/21 04:25 Dose: 800 mg Documented by: Lidocaine (Lidocaine 4 % Patch Adh..Patch) 1 patch TRANSDERMA DAILY [facility]; Protocol Last Admin: 08/29/21 10:21 Dose: Not Given Documented by: Lidocaine (Lidocaine 4 % Patch Adh..Patch) 1 patch TRANSDERMA DAILY [facility]A; Prot ocol Last Admin: 08/29/21 10:21 Dose: Not Given Documented by: [place] Carbonate ([place] Carbonate 300 Mg Tablet) 600 mg PO BID [facility]A Last Admin: 08/29/21 10:21 Dose: Not Given Documented by: Magnesium Citrate (Magnesium Citrate 300 Ml Solution) 300 ml PO DAILY PRN PRN Reason: Constipation Last Admin: 08/26/21 05:34 Dose: 300 ml Documented by: Magnesium Hydroxide (Milk Of Magnesia 30 Ml Oral.Susp) 30 ml PO DAILY PRN PRN Reason: Constipation Last Admin: 08/22/21 10:01 Dose: 30 ml Documented by: Melatonin (Melatonin 3 Mg Tablet) 9 mg PO BEDTIME [facility] Last Admin: 08/28/21 20:55 Dose: 9 mg Documented by: Multi-Ingred Cream/Lotion/Oil/Oint (Mineral Oil/Petrolatum,White 106 Gm Tube) 1 appl TOPICAL BID [facility]; Protocol Last Admin: 08/29/21 08:18 Dose: Not Given Documented by: Multivitamins/Vitamin C (Multivitamin Tablet) 1 tab PO DAILY [facility] Last Admin: 08/29/21 08:10 Dose: 1 tab Documented by: Nicotine Polacrilex (Nicotine Polacrilex 2 Mg Gum) 2 mg BUCCAL Q2H PRN PRN Reason: Nicotine Cravings Last Admin: 08/29/21 06:22 Dose: 2 mg Documented by: Psyllium Hydrophilic Mucilloid (Psyllium Seed 3.4 Gm Powd.Pack) 3.4 gm PO DAILY [facility] Last Admin: 08/29/21 08:09 Dose: 3.4 gm Documented by: Quetiapine Fumarate (Quetiapine Fumarate 100 Mg Tablet) 100 mg PO Q6H PRN PRN Reason: anxiety/restlessness Last Admin: 08/28/21 17:31 Dose: 100 mg Documented by: Quetiapine Fumarate (Quetiapine Fumarate 200 Mg Tablet) 200 mg PO BEDTIME [facility] Last Admin: 08/28/21 20:53 Dose: 200 mg Documented by: Ropinirole HCl (Ropinirole Hcl 0.5 Mg Tablet) 0.5 mg PO BID [facility] Last Admin: 08/29/21 08:10 Dose: 0.5 mg Documented by: Senna/Docusate Sodium (Sennosides/Docusate Sodium Tablet) 1 tab PO BID [facility] Last Admin: 08/29/21 08:10 Dose: 1 tab Documented by: Allergies Allergies Allergy/AdvReac Type Severity Reaction Status Date / Time aripiprazole [From Abilify] Allergy Unknown Involuntary Verified 08/19/21 07:20 Spasms chlorpromazine Allergy Unknown Nausea and Verified 08/19/21 07:20 [From Thorazine] Vomiting haloperidol [From Haldol] Allergy Unknown Involuntary Verified 08/19/21 07:20 Spasms olanzapine [From Zyprexa] Allergy Unknown Involuntary Verified 08/19/21 07:20 Spasms paliperidone [From Invega] Allergy Unknown Hallucinati Verified 08/19/21 07:20 ons risperidone Allergy Unknown Involuntary Verified 08/19/21 07:20 Spasms Assessment & Plan Assessment & Plan (1) Schizoaffective disorder, bipolar type: Status: Acute Code(s): F25.0 - Schizoaffective disorder, bipolar type Assessment and Plan: Pt is a 55 y.o. Female who carries a diagnosis of schizoaffective disorder, bipolar type. Pt presented to [facility] from [facility] ED due to disorganized behavior, paranoid thought content, and racing thoughts. In the ED, pt was prescribed gabapentin 300 mg, ativan 1 mg, seroquel 200 mg. However, she intermittently refused seroquel due to reported akathesia, stating ?it will make me flop like a fish all night.? Plan: Pt was hypertensive, given clonidine 0.1 mg QHS due to BP of 169/84, 173/85mmHg. Pt willing to take seroquel 50 mg BID with requip 0.5 mg BID to treat akathesia. Will trial vraylar 1.5 mg to target manic and psychotic sx, as pt reports being unable to tolerate multiple typical and atypical agents. She is also unwilling to take any mood stabilizer that requires lab monitoring. Will continue gabapentin 300 mg BID for anxiety, as well as to help with sciatica. PLAN 1. Discontinued Vraylar 08/24 at pt request 2. Started depakote 500mg po BID, clonazepam 1mg po BID. DCed VPA 08/24 at pt request as she agreed to start lithium. refusing to take more than 150 mg BID of lithium. 3. Aftercare planning 08/26/21 Augmentin 125 mg bid for tooth loss Continue current regime. Pt declines other changes at this time. 08/27/21 Increase Gabapentin to 600 mg tid Ibuprofen prn Hemorrhoid suppository prn PT reports pt is not in need of a walker. 08/28 declines mood stabilizer, reports allergies to most antipsychotic but received geodon few days ago without signs of side effects or allergy. alabile, intrusive disorganized I spent minutes with the patient and/or on the patient floor today, greater than?50% of which was spent counseling/coordinating care. Reason for contiued inpatient stay Substantial Risk for: inability to function
[2021-08-28] MEDS: QUEtiapine Fumarate 100 MG TABLET PO (17:31)
[2021-08-28] MEDS: QUEtiapine Fumarate 200 MG TABLET PO (20:53)
[2021-08-28] MEDS: Melatonin 3 MG TABLET 9 MG PO (20:55)
[2021-08-28] MEDS: fluPHENAZine HCL 2.5 MG/ML 10 ML VIAL 5 MG IM (22:41)
[2021-08-28] MEDS: LORazepam 2 MG/ML VIAL IM (22:42)
--- NOTE | 2021-08-28 22:49 | PC.NURSE ---
PT became angry and quickly escalated spitting on staff , posturing towards staff, and throwing objects at 22:15, security called, MD Ju Lopez notified, and she put in orders to give Ativan 2mg IM and Prolixin 5mg IM. Security present at time of administration which was 2240. Two separate IMs given to PT in right gluteus medius, PT cooperated with the IMs, no need to hold PT. Gradall Operator Kathy and Hospitalist Brennen notified. Dr Pacheco came to see PT at 2249 to assess and clear pt. Pt refused vital signs, respirations WNL. Will continue to monitor.
--- NOTE | 2021-08-28 23:49 | PC.NURSE ---
Staff observed pt's room to be in a disarray and malodorous. Scattered food covered her desk, and hand lotion and ketchup appeared speared on floors and surfaces. Her clothes and puzzle books appeared scattered over the room, and both appeared to be covered in abandoned food. There appeared to be wet towels left upon the floor. Staff cleared the food and housekeeping cleaned the room.
[2021-08-29] MEDS: Ibuprofen 800 MG TABLET PO (04:25)
[2021-08-29] MEDS: Nicotine Polacrilex 2 MG GUM BUCCAL ×3 (04:35→18:08)
[2021-08-29] MEDS: Amoxicillin/Potassium Clav 250 MG TABLET 125 MG PO ×2 (05:55→18:08)
[2021-08-29] MEDS: hydrOXYzine HCL 25 MG TABLET PO (06:21)
[2021-08-29] MEDS: Multivitamin TABLET 1 TAB PO (08:10)
[2021-08-29] MEDS: Sennosides/Docusate Sodium TABLET 1 TAB PO ×2 (08:10→21:07)
[2021-08-29] MEDS: rOPINIRole HCL 0.5 MG TABLET PO ×2 (08:10→21:07)
[2021-08-29] MEDS: Cyanocobalamin (Vitamin B-12) 100 MCG TABLET PO (08:10)
[2021-08-29] MEDS: Gabapentin 300 MG CAPSULE 600 MG PO ×3 (08:10→21:06)
[2021-08-29] MEDS: clonazePAM 1 MG TABLET PO ×2 (08:10→21:06)
--- NOTE | 2021-08-29 11:21 | P.PNPSI_ITS ---
Subjective Subjective Date of Service: 08/29/21 Reason For Visit: Bipolar, Schizoaffective Interim History: Pt requiered prolixin IM and ativan Im last night as she was throwing trays to staff, spitting at staff not responding to redirection,security called. This morning she is half naked in bed, reports she is and can't take medications. She reports she is trying to stay in her room. She denies SI/HI. Review of Systems Review of Systems CVS: No c/o chest pain, palpitations, no SOB RESEARCH PSYCHOLOGIST: No c/o dizziness, headache GI: No c/o Nausea, Vomiting, diarrhea, constipation or heartburn Yes all other systems are reviewed and are negative Musculoskeletal: Reports other (sciatica) Reports behavioral changes, Reports confusion and Reports memory loss Psychiatric: Reports abnormal sleep pattern, Reports anxiety, Reports behavioral changes, Reports change in appetite, Reports confusion, Reports depression, Reports difficulty concentrating, Reports auditory hallucinations, Reports hopelessness, Reports irritability, Reports anhedonia, Reports memory loss, Reports mood swings, Reports paranoia, Reports visual hallucinations and Reports hallucinations Mental Status Exam Mental Status Exam Narrative: Patient Appearance:?Disheveled Patient Orientation:?Person, Place, Time and Situation Level of Consciousness:?Awake Patient Behavior:?Restless, Belligerent and Impulsive Mood Description:?Euphoric Affect Description:?Labile and Expansive Ability to Follow Directions:?Fair Speech Pattern:?Perseverating, Pressured and Includes Profanity Delusions:?Paranoid Ideation Thought Process:?Racing (disorganized) Thought Content:?negative for Suicidal Ideation or positive for Homicidal Ideation (can be threatening ) Abnormal Motor Activity Signs and Symptoms:?Agitation and Hyperactivity Judgement:?Poor (impaired) Diagnostics Vital Signs (24Hr): BMI result Body Mass Index 32.8 Medications Medications Current Medications Acetaminophen (Acetaminophen 325 Mg Tablet) 650 mg PO Q6H PRN PRN Reason: Headache/Pain Mild Scale (1-3) Last Admin: 08/27/21 04:27 Dose: 650 mg Documented by: Al Hydroxide/Mg Hydroxide (Magnesium Hydrox/Alum Hydrox 30 Ml Oral.Susp) 30 ml PO Q6H PRN PRN Reason: Heartburn/Nausea Last Admin: 08/22/21 05:54 Dose: 30 ml Documented by: Amoxicillin/Clavulanate Potassium (Amoxicillin/Potassium Clav 250 Mg Tablet) 125 mg PO Q12H YAYA Stop: 09/02/21 18:59 Last Admin: 08/29/21 05:55 Dose: 125 mg Documented by: Artificial Tears (Artificial Tears 15 Ml Drops) 2 drop EYE-BOTH Q4H PRN PRN Reason: dry eyes Last Admin: 08/20/21 12:23 Dose: 2 drop Documented by: Artificial Tears (Artificial Tears 15 Ml Drops) 1 drop EYE-BOTH Q4H PRN PRN Reason: Dry Eyes Last Admin: 08/28/21 09:35 Dose: 1 drop Documented by: Aspirin (Aspirin Enteric Coated 325 Mg Tablet.) 650 mg PO DAILY PRN PRN Reason: headache Last Admin: 08/28/21 11:13 Dose: 650 mg Documented by: Benzocaine (Benzocaine 20 % Oral Gel 9 Gm Tube) 1 appl MUCOUS MEM QID PRN; Protocol PRN Reason: Mouth Sore Pain Last Admin: 08/25/21 10:05 Dose: 1 appl Documented by: Clonazepam (Clonazepam 1 Mg Tablet) 1 mg PO BID [facility] Last Admin: 08/29/21 08:10 Dose: 1 mg Documented by: Clonidine HCl (Clonidine Hcl 0.1 Mg Tablet) 0.1 mg PO BEDTIME YAYA; Protocol Last Admin: 08/28/21 20:59 Dose: Not Given Documented by: [place] Butter/Zinc Oxide ([place] Butter/Zinc Oxide Supp.Rect) 1 supp [place] BID PRN PRN Reason: hemorrhoid pain Cyanocobalamin (Cyanocobalamin (Vitamin B-12) 100 Mcg Tablet) 100 mcg PO DAILY [facility] Last Admin: 08/29/21 08:10 Dose: 100 mcg Documented by: Gabapentin (Gabapentin 300 Mg Capsule) 600 mg PO TID YYAA Last Admin: 08/29/21 08:10 Dose: 600 mg Documented by: Hydroxyzine HCl (Hydroxyzine Hcl 25 Mg Tablet) 25 mg PO BEDTIME PRN PRN Reason: Anxiety Last Admin: 08/29/21 06:21 Dose: 25 mg Documented by: Ibuprofen (Ibuprofen 800 Mg Tablet) 800 mg PO Q8H PRN PRN Reason: Pain, Mild (Pain Scale 1-3) Last Admin: 08/29/21 04:25 Dose: 800 mg Documented by: Lidocaine (Lidocaine 4 % Patch Adh..Patch) 1 patch TRANSDERMA DAILY YAYA; Protocol Last Admin: 08/29/21 10:21 Dose: Not Given Documented by: Lidocaine (Lidocaine 4 % Patch Adh..Patch) 1 patch TRANSDERMA DAILY [facility]; Protocol Last Admin: 08/29/21 10:21 Dose: Not Given Documented by: [place] Carbonate ([place] Carbonate 300 Mg Tablet) 600 mg PO BID [facility] Last Admin: 08/29/21 10:21 Dose: Not Given Documented by: Magnesium Citrate (Magnesium Citrate 300 Ml Solution) 300 ml PO DAILY PRN PRN Reason: Constipation Last Admin: 08/26/21 05:34 Dose: 300 ml Documented by: Magnesium Hydroxide (Milk Of Magnesia 30 Ml Oral.Susp) 30 ml PO DAILY PRN PRN Reason: Constipation Last Admin: 08/22/21 10:01 Dose: 30 ml Documented by: Melatonin (Melatonin 3 Mg Tablet) 9 mg PO BEDTIME [facility] Last Admin: 08/28/21 20:55 Dose: 9 mg Documented by: Multi-Ingred Cream/Lotion/Oil/Oint (Mineral Oil/Petrolatum,White 106 Gm Tube) 1 appl TOPICAL BID [facility]; Protocol Last Admin: 08/29/21 08:18 Dose: Not Given Documented by: Multivitamins/Vitamin C (Multivitamin Tablet) 1 tab PO DAILY [facility] Last Admin: 08/29/21 08:10 Dose: 1 tab Documented by: Nicotine Polacrilex (Nicotine Polacrilex 2 Mg Gum) 2 mg BUCCAL Q2H PRN PRN Reason: Nicotine Cravings Last Admin: 08/29/21 06:22 Dose: 2 mg Documented by: Psyllium Hydrophilic Mucilloid (Psyllium Seed 3.4 Gm Powd.Pack) 3.4 gm PO DAILY [facility] Last Admin: 08/29/21 08:09 Dose: 3.4 gm Documented by: Quetiapine Fumarate (Quetiapine Fumarate 100 Mg Tablet) 100 mg PO Q6H PRN PRN Reason: anxiety/restlessness Last Admin: 08/28/21 17:31 Dose: 100 mg Documented by: Quetiapine Fumarate (Quetiapine Fumarate 200 Mg Tablet) 200 mg PO BEDTIME [facility] Last Admin: 08/28/21 20:53 Dose: 200 mg Documented by: Ropinirole HCl (Ropinirole Hcl 0.5 Mg Tablet) 0.5 mg PO BID [facility] Last Admin: 08/29/21 08:10 Dose: 0.5 mg Documented by: Senna/Docusate Sodium (Sennosides/Docusate Sodium Tablet) 1 tab PO BID [facility] Last Admin: 08/29/21 08:10 Dose: 1 tab Documented by: Allergies Allergies Allergy/AdvReac Type Severity Reaction Status Date / Time aripiprazole [From Abilify] Allergy Unknown Involuntary Verified 08/19/21 07:20 Spasms chlorpromazine Allergy Unknown Nausea and Verified 08/19/21 07:20 [From Thorazine] Vomiting haloperidol [From Haldol] Allergy Unknown Involuntary Verified 08/19/21 07:20 Spasms olanzapine [From Zyprexa] Allergy Unknown Involuntary Verified 08/19/21 07:20 Spasms paliperidone [From Invega] Allergy Unknown Hallucinati Verified 08/19/21 07:20 ons risperidone Allergy Unknown Involuntary Verified 08/19/21 07:20 Spasms Assessment & Plan Assessment & Plan (1) Schizoaffective disorder, bipolar type: Status: Acute Code(s): F25.0 - Schizoaffective disorder, bipolar type Assessment and Plan: Pt is a 55 y.o. Female who carries a diagnosis of schizoaffective disorder, bipolar type. Pt presented to [facility] from [facility] ED due to disorganized behavior, paranoid thought content, and racing thoughts. In the ED, pt was prescribed gabapentin 300 mg, ativan 1 mg, seroquel 200 mg. However, she intermittently refused seroquel due to reported akathesia, stating ?it will make me flop like a fish all night.? Plan: Pt was hypertensive, given clonidine 0.1 mg QHS due to BP of 169/84, 173/85mmHg. Pt willing to take seroquel 50 mg BID with requip 0.5 mg BID to treat akathesia. Will trial vraylar 1.5 mg to target manic and psychotic sx, as pt reports being unable to tolerate multiple typical and atypical agents. She is also unwilling to take any mood stabilizer that requires lab monitoring. Will continue gabapentin 300 mg BID for anxiety, as well as to help with sciatica. PLAN 1. Discontinued Vraylar 1/4 at pt request 2. Started depakote 500mg po BID, clonazepam 1mg po BID. DCed VPA / at pt request as she agreed to start lithium. refusing to take more than 150 mg BID of lithium. 3. Aftercare planning 08/26/21 Augmentin 125 mg bid for tooth loss Continue current regime. Pt declines other changes at this time. 08/27/21 Increase Gabapentin to 600 mg tid Ibuprofen prn Hemorrhoid suppository prn PT reports pt is not in need of a walker. 08/28 declines mood stabilizer, reports allergies to most antipsychotic but received geodon few days ago without signs of side effects or allergy. alabile, intrusive disorganized I spent minutes with the patient and/or on the patient floor today, greater than?50% of which was spent counseling/coordinating care. Reason for contiued inpatient stay Substantial Risk for: inability to function
[2021-08-29 18:40] VITALS: BP 151/70; PULSE 92; RESP 18; TEMP 35.7; O2SAT 98
[2021-08-29] MEDS: Melatonin 3 MG TABLET 9 MG PO (21:06)
[2021-08-29] MEDS: cloNIDine HCL 0.1 MG TABLET PO (21:07)
[2021-08-29] MEDS: QUEtiapine Fumarate 200 MG TABLET PO (21:09)
--- NOTE | 2021-08-29 23:25 | PC.NURSE ---
Addendum entered by Angelina Harrison RN 08/29/21 23:29: PT accuses Rn of giving her BP med twice making her very dizzy and unable to walk , BP retaken 107/59 pt redirected , pt asks for prn med for sleep and falls back to sleep again Original Note: PT accuses Rn of giving her BP med twice making her very dizzy and unable to walk , pt redirected , pt asks for prn med for sleep and falls back to sleep again
[2021-08-30 06:00] VITALS: BP 129/74; PULSE 92; RESP 16; O2SAT 97
[2021-08-30] MEDS: Mineral Oil/Petrolatum,White 106 GM Tube 1 APPL TOPICAL (08:49)
[2021-08-30] MEDS: Lidocaine 4 % Patch ADH..PATCH 1 PATCH TRANSDERMA ×2 (08:49→08:50)
[2021-08-30] MEDS: Amoxicillin/Potassium Clav 250 MG TABLET 125 MG PO ×2 (08:50→18:45)
[2021-08-30] MEDS: Multivitamin TABLET 1 TAB PO (08:50)
[2021-08-30] MEDS: rOPINIRole HCL 0.5 MG TABLET PO (08:51)
[2021-08-30] MEDS: Sennosides/Docusate Sodium TABLET 1 TAB PO ×2 (08:51→19:27)
[2021-08-30] MEDS: Gabapentin 300 MG CAPSULE 600 MG PO ×3 (08:51→19:28)
[2021-08-30] MEDS: Cyanocobalamin (Vitamin B-12) 100 MCG TABLET PO (08:51)
[2021-08-30] MEDS: clonazePAM 1 MG TABLET PO ×2 (08:51→19:27)
[2021-08-30] MEDS: Lithium Carbonate 300 MG TABLET 600 MG PO (08:51)
[2021-08-30] MEDS: Nicotine Polacrilex 2 MG GUM BUCCAL ×3 (09:09→13:04)
--- NOTE | 2021-08-30 12:36 | P.PNPSI_ITS ---
Subjective Subjective Date of Service: 08/30/21 Reason For Visit: Bipolar, Schizoaffective Subjective Notes: Conditional Voluntary Healthcare Proxy: No Guardianship: No Medical Problems Affecting Mental Status: No Interim History: Difficult weekend for pt-requiring IM medication at one point due to behavioral dyscontrol-intrusive, spitting, poor boundaries-smearing pudding on latif. Today, pt is calmer (received Prolixin IM over the weekend) but with several issues and compliants about medications. Reports several allergies/adverse reactions to atypical antipsychotics-discussed needing to offer mood stabilization/cognitive clarity to assist in her success in return to community. Review of medications and changes. Medication Compliance: Intermittent Side effects from medications: No Attending Groups: No Review of Systems Acute medical concerns: No Sciatica sx and pain. Medical Review of Systems: unchanged Review of Systems Musculoskeletal: Reports other (sciatica) Mental Status Exam Mental Status Exam Patient Appearance: Disheveled Patient Orientation: Person, Place and Situation Level of Consciousness: Alert Patient Behavior: Talkative, Cooperative, Suspicious, Restless, Anxious, Resistive to Care, Avoidant, Fatigued, Distractible, Confused, Good Eye Contact and Impulsive Mood Description: Labile Affect Description: Labile Patient Cognition Impaired: No Ability to Follow Directions: Good Speech Pattern: Perseverating, Spontaneous Speech, Rambling, Cofabulation and Pressured Memory Description: Remote Impaired Hallucinations: Auditory and Visual Delusions: Being Controlled, Paranoid Ideation and Grandiose Perceptual Disturbances: Depersonalization and Derealization Thought Process: Racing, Illogical, Distracted, Rumination and Confusion Thought Content: positive for Flight of Ideas, positive for Racing, positive for [place], positive for Circumstantial, positive for Perseveration, positive for Preoccupation, positive for Loose Associations, positive for Thought Blocking, positive for Tangential and positive for Disorganized Depressive Symptoms: Diff. Making Decisions, Increased Irritability and Difficulty Concentrating Abnormal Motor Activity Signs and Symptoms: Hyperactivity and Restlessness Judgement: Poor Diagnostics Vital Signs (24Hr): Vital Signs - 24 hr 08/29/21 18:40 Temperature 96.3 F L Pulse Rate 92 Respiratory Rate 18 Blood Pressure 151/70 H Pulse Oximetry 98 BMI result Body Mass Index 32.8 Medications Medications Current Medications Acetaminophen (Acetaminophen 325 Mg Tablet) 650 mg PO Q6H PRN PRN Reason: Headache/Pain Mild Scale (1-3) Last Admin: 08/27/21 04:27 Dose: 650 mg Documented by: Al Hydroxide/Mg Hydroxide (Magnesium Hydrox/Alum Hydrox 30 Ml Oral.Susp) 30 ml PO Q6H PRN PRN Reason: Heartburn/Nausea Last Admin: 08/22/21 05:54 Dose: 30 ml Documented by: Amoxicillin/Clavulanate Potassium (Amoxicillin/Potassium Clav 250 Mg Tablet) 125 mg PO Q12H YAYA Stop: 09/02/21 18:59 Last Admin: 08/30/21 08:50 Dose: 125 mg Documented by: Artificial Tears (Artificial Tears 15 Ml Drops) 2 drop EYE-BOTH Q4H PRN PRN Reason: dry eyes Last Admin: 08/20/21 12:23 Dose: 2 drop Documented by: Artificial Tears (Artificial Tears 15 Ml Drops) 1 drop EYE-BOTH Q4H PRN PRN Reason: Dry Eyes Last Admin: 08/28/21 09:35 Dose: 1 drop Documented by: Aspirin (Aspirin Enteric Coated 325 Mg Tablet.) 650 mg PO DAILY PRN PRN Reason: headache Last Admin: 08/28/21 11:13 Dose: 650 mg Documented by: Benzocaine (Benzocaine 20 % Oral Gel 9 Gm Tube) 1 appl MUCOUS MEM QID PRN; Protocol PRN Reason: Mouth Sore Pain Last Admin: 08/25/21 10:05 Dose: 1 appl Documented by: Clonazepam (Clonazepam 1 Mg Tablet) 1 mg PO BID [facility] Last Admin: 08/30/21 08:51 Dose: 1 mg Documented by: Clonidine HCl (Clonidine Hcl 0.1 Mg Tablet) 0.1 mg PO BEDTIME [facility]A; Protocol Last Admin: 08/29/21 21:07 Dose: 0.1 mg Documented by: [place] Butter/Zinc Oxide ([place] Butter/Zinc Oxide Supp.Rect) 1 supp [place] BID PRN PRN Reason: hemorrhoid pain Cyanocobalamin (Cyanocobalamin (Vitamin B-12) 100 Mcg Tablet) 100 mcg PO DAILY [facility] Last Admin: 08/30/21 08:51 Dose: 100 mcg Documented by: Gabapentin (Gabapentin 300 Mg Capsule) 600 mg PO TID [facility] Last Admin: 08/30/21 08:51 Dose: 600 mg Documented by: Hydroxyzine HCl (Hydroxyzine Hcl 25 Mg Tablet) 25 mg PO BEDTIME PRN PRN Reason: Anxiety Last Admin: 08/29/21 06:21 Dose: 25 mg Documented by: Ibuprofen (Ibuprofen 800 Mg Tablet) 800 mg PO Q8H PRN PRN Reason: Pain, Mild (Pain Scale 1-3) Last Admin: 08/29/21 04:25 Dose: 800 mg Documented by: Lidocaine (Lidocaine 4 % Patch Adh..Patch) 1 patch TRANSDERMA DAILY [facility]; Protocol Last Admin: 08/30/21 08:49 Dose: 1 patch Documented by: Lidocaine (Lidocaine 4 % Patch Adh..Patch) 1 patch TRANSDERMA DAILY [facility]; Protocol Last Admin: 08/30/21 08:50 Dose: 1 patch Documented by: [place] Carbonate ([place] Carbonate 300 Mg Tablet) 600 mg PO BID [facility] Last Admin: 08/30/21 08:51 Dose: 600 mg Documented by: Magnesium Citrate (Magnesium Citrate 300 Ml Solution) 300 ml PO DAILY PRN PRN Reason: Constipation Last Admin: 08/26/21 05:34 Dose: 300 ml Documented by: Magnesium Hydroxide (Milk Of Magnesia 30 Ml Oral.Susp) 30 ml PO DAILY PRN PRN Reason: Constipation Last Admin: 08/22/21 10:01 Dose: 30 ml Documented by: Melatonin (Melatonin 3 Mg Tablet) 9 mg PO BEDTIME [facility] Last Admin: 08/29/21 21:06 Dose: 9 mg Documented by: Multi-Ingred Cream/Lotion/Oil/Oint (Mineral Oil/Petrolatum,White 106 Gm Tube) 1 appl TOPICAL BID [facility]; Protocol Last Admin: 08/30/21 08:49 Dose: 1 appl Documented by: Multivitamins/Vitamin C (Multivitamin Tablet) 1 tab PO DAILY [facility] Last Admin: 08/30/21 08:50 Dose: 1 tab Documented by: Nicotine Polacrilex (Nicotine Polacrilex 2 Mg Gum) 2 mg BUCCAL Q2H PRN PRN Reason: Nicotine Cravings Last Admin: 08/30/21 11:21 Dose: 2 mg Documented by: Psyllium Hydrophilic Mucilloid (Psyllium Seed 3.4 Gm Powd.Pack) 3.4 gm PO DAILY [facility] Last Admin: 08/30/21 08:49 Dose: 3.4 gm Documented by: Quetiapine Fumarate (Quetiapine Fumarate 100 Mg Tablet) 100 mg PO Q6H PRN PRN Reason: anxiety/restlessness Last Admin: 08/28/21 17:31 Dose: 100 mg Documented by: Quetiapine Fumarate (Quetiapine Fumarate 200 Mg Tablet) 200 mg PO BEDTIME [facility] Last Admin: 08/29/21 21:09 Dose: 200 mg Documented by: Ropinirole HCl (Ropinirole Hcl 0.5 Mg Tablet) 0.5 mg PO BID [facility] Last Admin: 08/30/21 08:51 Dose: 0.5 mg Documented by: Senna/Docusate Sodium (Sennosides/Docusate Sodium Tablet) 1 tab PO BID [facility] Last Admin: 08/30/21 08:51 Dose: 1 tab Documented by: Allergies Allergies Allergy/AdvReac Type Severity Reaction Status Date / Time aripiprazole [From Abilify] Allergy Unknown Involuntary Verified 08/19/21 07:20 Spasms chlorpromazine Allergy Unknown Nausea and Verified 08/19/21 07:20 [From Thorazine] Vomiting haloperidol [From Haldol] Allergy Unknown Involuntary Verified 08/19/21 07:20 Spasms olanzapine [From Zyprexa] Allergy Unknown Involuntary Verified 08/19/21 07:20 Spasms paliperidone [From Invega] Allergy Unknown Hallucinati Verified 08/19/21 07:20 ons risperidone Allergy Unknown Involuntary Verified 08/19/21 07:20 Spasms Assessment & Plan Assessment & Plan (1) Schizoaffective disorder, bipolar type: Status: Acute Code(s): F25.0 - Schizoaffective disorder, bipolar type Assessment and Plan: Pt is a 55 y.o. Female who carries a diagnosis of schizoaffective disorder, bipolar type. Pt presented to [facility] from [facility] ED due to disorganized behavior, paranoid thought content, and racing thoughts. In the ED, pt was prescribed gabapentin 300 mg, ativan 1 mg, seroquel 200 mg. However, she intermittently refused seroquel due to reported akathesia, stating ?it will make me flop like a fish all night.? Plan: Pt was hypertensive, given clonidine 0.1 mg QHS due to BP of 169/84, 173/85mmHg. Pt willing to take seroquel 50 mg BID with requip 0.5 mg BID to treat akathesia. Will trial vraylar 1.5 mg to target manic and psychotic sx, as pt reports being unable to tolerate multiple typical and atypical agents. She is also unwilling to take any mood stabilizer that requires lab monitoring. Will continue gabapentin 300 mg BID for anxiety, as well as to help with sciatica. PLAN 1. Discontinued Vraylar 08/24 at pt request 2. Started depakote 500mg po BID, clonazepam 1mg po BID. DCed VPA 08/24 at pt request as she agreed to start lithium. refusing to take more than 150 mg BID of lithium. 3. Aftercare planning 08/26/21 Augmentin 125 mg bid for tooth loss Continue current regime. Pt declines other changes at this time. 08/27/21 Increase Gabapentin to 600 mg tid Ibuprofen prn Hemorrhoid suppository prn PT reports pt is not in need of a walker. 08/28 declines mood stabilizer, reports allergies to most antipsychotic but received geodon few days ago without signs of side effects or allergy. alabile, intrusive disorganized. 08/30/21: Difficult weekend for pt with disorganization, mood lability, psychosis. Full review of regime with Blanca. 1. Change nicotine gum to lozenges per pt request. 2. Increase requip to 1 mg bid to address RLS sx reports. 3. Simethacone prn 4. Lamictal 25 mg daily 5. Lorazepam 0. 5 mg q 8 hours prn anxiety/agitation. 6. Benadryl 50 mg q 6 hours prn anxiety/agitation 7. Calcium qd Ongoing education and support regarding appropriate meds for mood stabilization and clarity of thinking. I spent 45 minutes with the patient and/or on the patient floor today, greater than?50% of which was spent counseling/coordinating care. Patient educated on: diagnosis, medication risk/benefits and therapeutic strategies Informed Consent: further education needed Reason for contiued inpatient stay Substantial Risk for: harm to self, harm to others, inability to function, rapid decompensation and med/psych decompensation
[2021-08-30] MEDS: Nicotine Polacrilex Lozenge 4 MG LOZENGE BUCCAL ×3 (15:10→19:28)
[2021-08-30 16:47] VITALS: BP 153/75; PULSE 95
[2021-08-30] MEDS: Ibuprofen 800 MG TABLET PO (17:31)
[2021-08-30] MEDS: rOPINIRole HCL 1 MG TABLET PO (19:27)
[2021-08-30] MEDS: QUEtiapine Fumarate 200 MG TABLET PO (19:27)
[2021-08-30] MEDS: lamoTRIgine 25 MG TABLET PO (19:27)
[2021-08-30] MEDS: cloNIDine HCL 0.1 MG TABLET PO (19:30)
[2021-08-30] MEDS: Melatonin 3 MG TABLET 9 MG PO (22:05)
[2021-08-31] MEDS: Acetaminophen 325 MG TABLET 650 MG PO ×2 (02:58→14:27)
[2021-08-31] MEDS: Benzocaine 20 % Oral Gel 9 GM TUBE 1 APPL MUCOUS MEM (03:05)
[2021-08-31] MEDS: Artificial Tears 15 ML DROPS 1 DROP EYE-BOTH (03:06)
[2021-08-31] MEDS: Nicotine Polacrilex Lozenge 4 MG LOZENGE BUCCAL ×2 (03:42→15:19)
[2021-08-31] MEDS: LORazepam 0.5 MG TABLET PO ×2 (03:42→16:31)
[2021-08-31 06:00] VITALS: BP 120/79; PULSE 81; RESP 18; TEMP 36.6; O2SAT 100
[2021-08-31] MEDS: Amoxicillin/Potassium Clav 250 MG TABLET 125 MG PO ×2 (06:48→19:30)
[2021-08-31] MEDS: Ibuprofen 800 MG TABLET PO ×2 (07:17→19:29)
[2021-08-31] MEDS: Cyanocobalamin (Vitamin B-12) 100 MCG TABLET PO (08:09)
[2021-08-31] MEDS: rOPINIRole HCL 1 MG TABLET PO ×2 (08:09→19:30)
[2021-08-31] MEDS: Sennosides/Docusate Sodium TABLET 1 TAB PO ×2 (08:09→19:30)
[2021-08-31] MEDS: Gabapentin 300 MG CAPSULE 600 MG PO (08:09)
[2021-08-31] MEDS: Lidocaine 4 % Patch ADH..PATCH 1 PATCH TRANSDERMA ×2 (08:09)
[2021-08-31] MEDS: Multivitamin TABLET 1 TAB PO (08:09)
[2021-08-31] MEDS: clonazePAM 1 MG TABLET PO ×2 (08:09→19:28)
[2021-08-31] MEDS: Gabapentin 400 MG CAPSULE 800 MG PO ×2 (14:28→19:29)
[2021-08-31] MEDS: Nicotine Polacrilex 2 MG GUM 4 MG BUCCAL ×2 (16:29→19:26)
[2021-08-31 19:25] VITALS: BP 149/89; PULSE 96; RESP 20; TEMP 36.9; O2SAT 98
[2021-08-31] MEDS: Lithium Carbonate 300 MG TABLET 600 MG PO (19:29)
[2021-08-31] MEDS: QUEtiapine Fumarate 200 MG TABLET PO (19:29)
[2021-08-31] MEDS: Melatonin 3 MG TABLET 9 MG PO (19:29)
[2021-08-31] MEDS: cloNIDine HCL 0.1 MG TABLET PO (19:30)
[2021-08-31] MEDS: lamoTRIgine 25 MG TABLET PO (19:30)
[2021-08-31] MEDS: Milk of Magnesia 30 ML ORAL.SUSP PO (20:05)
[2021-09-01 06:00] VITALS: BP 102/59; PULSE 70; RESP 16; TEMP 36.8; O2SAT 97
[2021-09-01] MEDS: Amoxicillin/Potassium Clav 250 MG TABLET 125 MG PO ×2 (06:35→19:06)
[2021-09-01] MEDS: Ibuprofen 800 MG TABLET PO ×2 (07:02→19:05)
[2021-09-01] MEDS: Nicotine Polacrilex 2 MG GUM 4 MG BUCCAL ×4 (07:03→19:06)
[2021-09-01] MEDS: rOPINIRole HCL 1 MG TABLET PO ×2 (08:37→20:56)
[2021-09-01] MEDS: Lithium Carbonate 300 MG TABLET 600 MG PO ×2 (08:40→20:56)
[2021-09-01] MEDS: Gabapentin 400 MG CAPSULE 800 MG PO ×3 (08:41→20:54)
[2021-09-01] MEDS: Cyanocobalamin (Vitamin B-12) 100 MCG TABLET PO (08:43)
[2021-09-01] MEDS: Multivitamin TABLET 1 TAB PO (08:43)
[2021-09-01] MEDS: Sennosides/Docusate Sodium TABLET 1 TAB PO ×2 (08:44→20:54)
[2021-09-01] MEDS: Mineral Oil/Petrolatum,White 106 GM Tube 1 APPL TOPICAL ×2 (08:44→21:01)
[2021-09-01] MEDS: Artificial Tears 15 ML DROPS 2 DROP EYE-BOTH (09:32)
[2021-09-01 11:20] LABS: HCG Quantitative 4 mIU/mL
--- NOTE | 2021-09-01 11:48 | P.PNPSI_ITS ---
Subjective Subjective Date of Service: 08/31/21 Reason For Visit: Bipolar, Schizoaffective Subjective Notes: Conditional Voluntary Healthcare Proxy: No Guardianship: No Medical Problems Affecting Mental Status: No Interim History: Pt reports ongoing sciatic nerve pain without relief. Also believes she is , asks for evaluation. Appears calmer, speech is at a reasonable volume and consistent. Discussed her belief that she was abducted by aliens, had her meniscus repaired, and returned to earth- because I don't recall this. Medication Compliance: Intermittent Side effects from medications: No Attending Groups: No Review of Systems Acute medical concerns: No Review of Systems Musculoskeletal: Reports other (sciatica) Reports behavioral changes and Reports memory loss Psychiatric: Reports anxiety, Reports behavioral changes, Reports change in appetite, Reports difficulty concentrating, Reports auditory hallucinations, Reports irritability, Reports anhedonia, Reports memory loss, Reports mood swings, Reports paranoia and Reports visual hallucinations Mental Status Exam Mental Status Exam Patient Appearance: Disheveled Patient Orientation: Person, Place and Situation Level of Consciousness: Alert Patient Behavior: Talkative, Cooperative, Suspicious, Restless, Anxious, Resistive to Care, Avoidant, Fatigued, Distractible, Confused, Good Eye Contact and Impulsive Mood Description: Labile Affect Description: Labile Patient Cognition Impaired: No Ability to Follow Directions: Good Speech Pattern: Perseverating, Spontaneous Speech, Rambling, Cofabulation and Pressured Memory Description: Remote Impaired Hallucinations: Auditory and Visual Delusions: Being Controlled, Paranoid Ideation and Grandiose Perceptual Disturbances: Depersonalization and Derealization Thought Process: Racing, Illogical, Distracted, Rumination and Confusion Thought Content: positive for Flight of Ideas, positive for Racing, positive for [place], positive for Circumstantial, positive for Perseveration, positive for Preoccupation, positive for Loose Associations, positive for Thought Blocking, positive for Tangential and positive for Disorganized Depressive Symptoms: Diff. Making Decisions, Increased Irritability and Difficulty Concentrating Abnormal Motor Activity Signs and Symptoms: Hyperactivity and Restlessness Judgement: Poor Diagnostics Vital Signs (24Hr): Vital Signs - 24 hr 08/31/21 19:25 09/01/21 06:00 Temperature 98.5 F 98.3 F Pulse Rate 96 70 Respiratory Rate 20 16 Blood Pressure 149/89 H 102/59 L Pulse Oximetry 98 97 BMI result Body Mass Index 32.8 Labs Labs: Laboratory Results - last 48 hr 09/01/21 10:30 Beta HCG, Quant 4 Imaging Radiology Impressions: ITS Impressions Abdomen Ultrasound 09/01/21 08:59 IMPRESSION: Slightly echogenic liver. Limited evaluation of the gallbladder as the patient has recently eaten. No gallstone seen. Limited visualization of the pancreas. Medications Medications Current Medications Acetaminophen (Acetaminophen 325 Mg Tablet) 650 mg PO Q6H PRN PRN Reason: Headache/Pain Mild Scale (1-3) Last Admin: 08/31/21 14:27 Dose: 650 mg Documented by: Al Hydroxide/Mg Hydroxide (Magnesium Hydrox/Alum Hydrox 30 Ml Oral.Susp) 30 ml PO Q6H PRN PRN Reason: Heartburn/Nausea Last Admin: 08/22/21 05:54 Dose: 30 ml Documented by: Amoxicillin/Clavulanate Potassium (Amoxicillin/Potassium Clav 250 Mg Tablet) 125 mg PO Q12H [facility] Stop: 09/02/21 18:59 Last Admin: 09/01/21 06:35 Dose: 125 mg Documented by: Artificial Tears (Artificial Tears 15 Ml Drops) 2 drop EYE-BOTH Q4H PRN PRN Reason: dry eyes Last Admin: 09/01/21 09:32 Dose: 2 drop Documented by: Artificial Tears (Artificial Tears 15 Ml Drops) 1 drop EYE-BOTH Q4H PRN PRN Reason: Dry Eyes Last Admin: 08/31/21 03:06 Dose: 1 drop Documented by: Aspirin (Aspirin Enteric Coated 325 Mg Tablet.) 650 mg PO DAILY PRN PRN Reason: headache Last Admin: 08/28/21 11:13 Dose: 650 mg Documented by: Benzocaine (Benzocaine 20 % Oral Gel 9 Gm Tube) 1 appl MUCOUS MEM QID PRN; Protocol PRN Reason: Mouth Sore Pain Last Admin: 08/31/21 03:05 Dose: 1 appl Documented by: Calcium Carbonate (Calcium Carbonate 500 Mg Tablet) 500 mg PO DAILY YAYA Last Admin: 09/01/21 08:42 Dose: 500 mg Documented by: Clonazepam (Clonazepam 1 Mg Tablet) 1 mg PO BID PRN PRN Reason: anxiety Clonidine HCl (Clonidine Hcl 0.1 Mg Tablet) 0.1 mg PO BEDTIME YAYA; Protocol Last Admin: 08/31/21 19:30 Dose: 0.1 mg Documented by: [place] Butter/Zinc Oxide ([place] Butter/Zinc Oxide Supp.Rect) 1 supp [place] BID PRN PRN Reason: hemorrhoid pain Cyanocobalamin (Cyanocobalamin (Vitamin B-12) 100 Mcg Tablet) 100 mcg PO DAILY [facility] Last Admin: 09/01/21 08:43 Dose: 100 mcg Documented by: Diphenhydramine HCl (Diphenhydramine Hcl 25 Mg Tablet) 50 mg PO Q6H PRN PRN Reason: eps Gabapentin (Gabapentin 400 Mg Capsule) 800 mg PO TID [facility] Last Admin: 09/01/21 08:41 Dose: 800 mg Documented by: Hydroxyzine HCl (Hydroxyzine Hcl 25 Mg Tablet) 25 mg PO BEDTIME PRN PRN Reason: Anxiety Last Admin: 08/29/21 06:21 Dose: 25 mg Documented by: Ibuprofen (Ibuprofen 800 Mg Tablet) 800 mg PO Q8H PRN PRN Reason: Pain, Mild (Pain Scale 1-3) Last Admin: 09/01/21 07:02 Dose: 800 mg Documented by: Lamotrigine (Lamotrigine 25 Mg Tablet) 25 mg PO BEDTIME [facility] Last Admin: 08/31/21 19:30 Dose: 25 mg Documented by: Lidocaine (Lidocaine 4 % Patch Adh..Patch) 1 patch TRANSDERMA DAILY [facility]; Protocol Last Admin: 09/01/21 10:15 Dose: Not Given Documented by: Lidocaine (Lidocaine 4 % Patch Adh..Patch) 1 patch TRANSDERMA DAILY [facility]; Protocol Last Admin: 09/01/21 10:16 Dose: Not Given Documented by: [place] Carbonate ([place] Carbonate 300 Mg Tablet) 600 mg PO BID [facility] Last Admin: 09/01/21 08:40 Dose: 600 mg Documented by: Lorazepam (Lorazepam 0.5 Mg Tablet) 0.5 mg PO Q8H PRN PRN Reason: Anxiety Last Admin: 08/31/21 16:31 Dose: 0.5 mg Documented by: Magnesium Citrate (Magnesium Citrate 300 Ml Solution) 300 ml PO DAILY PRN PRN Reason: Constipation Last Admin: 08/26/21 05:34 Dose: 300 ml Documented by: Magnesium Hydroxide (Milk Of Magnesia 30 Ml Oral.Susp) 30 ml PO DAILY PRN PRN Reason: Constipation Last Admin: 08/31/21 20:05 Dose: 30 ml Documented by: Melatonin (Melatonin 3 Mg Tablet) 9 mg PO BEDTIME [facility] Last Admin: 08/31/21 19:29 Dose: 9 mg Documented by: Multi-Ingred Cream/Lotion/Oil/Oint (Mineral Oil/Petrolatum,White 106 Gm Tube) 1 appl TOPICAL BID [facility]; Protocol Last Admin: 09/01/21 08:44 Dose: 1 appl Documented by: Multivitamins/Vitamin C (Multivitamin Tablet) 1 tab PO DAILY [facility] Last Admin: 09/01/21 08:43 Dose: 1 tab Documented by: Nicotine Polacrilex (Nicotine Polacrilex 2 Mg Gum) 4 mg BUCCAL Q1H PRN PRN Reason: Nicotine Cravings Last Admin: 09/01/21 07:03 Dose: 4 mg Documented by: Psyllium Hydrophilic Mucilloid (Psyllium Seed 3.4 Gm Powd.Pack) 3.4 gm PO DAILY [facility] Last Admin: 09/01/21 08:35 Dose: 3.4 gm Documented by: Quetiapine Fumarate (Quetiapine Fumarate 100 Mg Tablet) 100 mg PO Q6H PRN PRN Reason: anxiety/restlessness Last Admin: 08/28/21 17:31 Dose: 100 mg Documented by: Quetiapine Fumarate (Quetiapine Fumarate 200 Mg Tablet) 200 mg PO BEDTIME [facility] Last Admin: 08/31/21 19:29 Dose: 200 mg Documented by: Quetiapine Fumarate (Quetiapine Fumarate 50 Mg Tablet) 50 mg PO BID PRN PRN Reason: agitation, lability Ropinirole HCl (Ropinirole Hcl 1 Mg Tablet) 1 mg PO BID [facility] Last Admin: 09/01/21 08:37 Dose: 1 mg Documented by: Senna/Docusate Sodium (Sennosides/Docusate Sodium Tablet) 1 tab PO BID [facility] Last Admin: 09/01/21 08:44 Dose: 1 tab Documented by: Simethicone (Simethicone 80 Mg Tab.Chew) 80 mg PO QIDWMHS PRN PRN Reason: indigestion Allergies Allergies Allergy/AdvReac Type Severity Reaction Status Date / Time aripiprazole [From Abilify] Allergy Unknown Involuntary Verified 08/19/21 07:20 Spasms chlorpromazine Allergy Unknown Nausea and Verified 08/19/21 07:20 [From Thorazine] Vomiting haloperidol [From Haldol] Allergy Unknown Involuntary Verified 08/19/21 07:20 Spasms olanzapine [From Zyprexa] Allergy Unknown Involuntary Verified 08/19/21 07:20 Spasms paliperidone [From Invega] Allergy Unknown Hallucinati Verified 08/19/21 07:20 ons risperidone Allergy Unknown Involuntary Verified 08/19/21 07:20 Spasms Assessment & Plan Assessment & Plan (1) Schizoaffective disorder, bipolar type: Status: Acute Code(s): F25.0 - Schizoaffective disorder, bipolar type Assessment and Plan: Pt is a 55 y.o. Female who carries a diagnosis of schizoaffective disorder, bipolar type. Pt presented to [facility] from [facility] ED due to disorganized behavior, paranoid thought content, and racing thoughts. In the ED, pt was prescribed gabapentin 300 mg, ativan 1 mg, seroquel 200 mg. However, she intermittently refused seroquel due to reported akathesia, stating ?it will make me flop like a fish all night.? Plan: Pt was hypertensive, given clonidine 0.1 mg QHS due to BP of 169/84, 173/85mmHg. Pt willing to take seroquel 50 mg BID with requip 0.5 mg BID to treat akathesia. Will trial vraylar 1.5 mg to target manic and psychotic sx, as pt reports being unable to tolerate multiple typical and atypical agents. She is also unwilling to take any mood stabilizer that requires lab monitoring. Will continue gabapentin 300 mg BID for anxiety, as well as to help with sciatica. PLAN 1. Discontinued Vraylar 08/24 at pt request 2. Started depakote 500mg po BID, clonazepam 1mg po BID. DCed VPA 08/24 at pt request as she agreed to start lithium. refusing to take more than 150 mg BID of lithium. 3. Aftercare planning 08/26/21 Augmentin 125 mg bid for tooth loss Continue current regime. Pt declines other changes at this time. 08/27/21 Increase Gabapentin to 600 mg tid Ibuprofen prn Hemorrhoid suppository prn PT reports pt is not in need of a walker. 08/28 declines mood stabilizer, reports allergies to most antipsychotic but received geodon few days ago without signs of side effects or allergy. alabile, intrusive disorganized 08/31/21: Increase Gabapentin to 800 mg tid. Discussed with pt titrating Seroquel to improve clarity-she will consider. I spent 25 minutes with the patient and/or on the patient floor today, greater than?50% of which was spent counseling/coordinating care. Reason for contiued inpatient stay Substantial Risk for: harm to self, harm to others, inability to function, rapid decompensation and med/psych decompensation
[2021-09-01] MEDS: Acetaminophen 325 MG TABLET 650 MG PO (13:11)
--- NOTE | 2021-09-01 14:49 | HO.PSYCHPN ---
Subjective Subjective Date of Service: 09/01/21 Reason For Visit: Bipolar, Schizoaffective Subjective Notes: Conditional Voluntary Healthcare Proxy: No Guardianship: No Medical Problems Affecting Mental Status: No Interim History: Lability and unmodulated behaviors persist. Team reports pt, in attempting to utilize the sink as a grab bar to lift herself from the commode, broke the sink from the wall. This was a reported non aggressive act. Pt completed ultrasound (abd) and HCG both being negative. Results shared with pt on paper-pt thankful however non believing, stating- when you are with Violet's child all looks normal . Pt denies SI. Confrontive regarding COVID protocols COVID = Love and you should embrace it not try to prevent it. Ongoing discussion of medications. Medication Compliance: Yes Side effects from medications: No Attending Groups: No Review of Systems Acute medical concerns: No Medical Review of Systems: unchanged Review of Systems Musculoskeletal: Reports other (sciatica) Reports behavioral changes and Reports memory loss Psychiatric: Reports anxiety, Reports behavioral changes, Reports change in appetite, Reports difficulty concentrating, Reports auditory hallucinations, Reports irritability, Reports anhedonia, Reports memory loss, Reports mood swings, Reports paranoia and Reports visual hallucinations Mental Status Exam Mental Status Exam Patient Appearance: Disheveled Patient Orientation: Person, Place and Situation Level of Consciousness: Alert Patient Behavior: Talkative, Cooperative, Suspicious, Restless, Anxious, Resistive to Care, Avoidant, Fatigued, Distractible, Confused, Good Eye Contact and Impulsive Mood Description: Labile Affect Description: Labile Patient Cognition Impaired: No Ability to Follow Directions: Good Speech Pattern: Perseverating, Spontaneous Speech, Rambling, Cofabulation and Pressured Memory Description: Remote Impaired Hallucinations: Auditory and Visual Delusions: Being Controlled, Paranoid Ideation and Grandiose Perceptual Disturbances: Depersonalization and Derealization Thought Process: Racing, Illogical, Distracted, Rumination and Confusion Thought Content: positive for Flight of Ideas, positive for Racing, positive for [place], positive for Circumstantial, positive for Perseveration, positive for Preoccupation, positive for Loose Associations, positive for Thought Blocking, positive for Tangential and positive for Disorganized Depressive Symptoms: Diff. Making Decisions, Increased Irritability and Difficulty Concentrating Abnormal Motor Activity Signs and Symptoms: Hyperactivity and Restlessness Judgement: Poor Diagnostics Vital Signs (24Hr): Vital Signs - 24 hr 08/31/21 19:25 09/01/21 06:00 Temperature 98.5 F 98.3 F Pulse Rate 96 70 Respiratory Rate 20 16 Blood Pressure 149/89 H 102/59 L Pulse Oximetry 98 97 BMI result Body Mass Index 32.8 Labs Labs: Laboratory Results - last 48 hr 09/01/21 10:30 Beta HCG, Quant 4 Imaging Radiology Impressions: ITS Impressions Abdomen Ultrasound 09/01/21 08:59 IMPRESSION: Slightly echogenic liver. Limited evaluation of the gallbladder as the patient has recently eaten. No gallstone seen. Limited visualization of the pancreas. Medications Medications Current Medications Acetaminophen (Acetaminophen 325 Mg Tablet) 650 mg PO Q6H PRN PRN Reason: Headache/Pain Mild Scale (1-3) Last Admin: 09/01/21 13:11 Dose: 650 mg Documented by: Al Hydroxide/Mg Hydroxide (Magnesium Hydrox/Alum Hydrox 30 Ml Oral.Susp) 30 ml PO Q6H PRN PRN Reason: Heartburn/Nausea Last Admin: 08/22/21 05:54 Dose: 30 ml Documented by: Amoxicillin/Clavulanate Potassium (Amoxicillin/Potassium Clav 250 Mg Tablet) 125 mg PO Q12H [facility] Stop: 09/02/21 18:59 Last Admin: 09/01/21 06:35 Dose: 125 mg Documented by: Artificial Tears (Artificial Tears 15 Ml Drops) 2 drop EYE-BOTH Q4H PRN PRN Reason: dry eyes Last Admin: 09/01/21 09:32 Dose: 2 drop Documented by: Artificial Tears (Artificial Tears 15 Ml Drops) 1 drop EYE-BOTH Q4H PRN PRN Reason: Dry Eyes Last Admin: 08/31/21 03:06 Dose: 1 drop Documented by: Aspirin (Aspirin Enteric Coated 325 Mg Tablet.) 650 mg PO DAILY PRN PRN Reason: headache Last Admin: 08/28/21 11:13 Dose: 650 mg Documented by: Benzocaine (Benzocaine 20 % Oral Gel 9 Gm Tube) 1 appl MUCOUS MEM QID PRN; Protocol PRN Reason: Mouth Sore Pain Last Admin: 08/31/21 03:05 Dose: 1 appl Documented by: Calcium Carbonate (Calcium Carbonate 500 Mg Tablet) 500 mg PO DAILY [facility] Last Admin: 09/01/21 08:42 Dose: 500 mg Documented by: Clonazepam (Clonazepam 1 Mg Tablet) 1 mg PO BID PRN PRN Reason: anxiety Clonidine HCl (Clonidine Hcl 0.1 Mg Tablet) 0.1 mg PO BEDTIME [facility]; Protocol Last Admin: 08/31/21 19:30 Dose: 0.1 mg Documented by: [place] Butter/Zinc Oxide ([place] Butter/Zinc Oxide Supp.Rect) 1 supp [place] BID PRN PRN Reason: hemorrhoid pain Cyanocobalamin (Cyanocobalamin (Vitamin B-12) 100 Mcg Tablet) 100 mcg PO DAILY [facility] Last Admin: 09/01/21 08:43 Dose: 100 mcg Documented by: Diphenhydramine HCl (Diphenhydramine Hcl 25 Mg Tablet) 50 mg PO Q6H PRN PRN Reason: eps Gabapentin (Gabapentin 400 Mg Capsule) 800 mg PO TID [facility] Last Admin: 09/01/21 14:22 Dose: 800 mg Documented by: Hydroxyzine HCl (Hydroxyzine Hcl 25 Mg Tablet) 25 mg PO BEDTIME PRN PRN Reason: Anxiety Last Admin: 08/29/21 06:21 Dose: 25 mg Documented by: Ibuprofen (Ibuprofen 800 Mg Tablet) 800 mg PO Q8H PRN PRN Reason: Pain, Mild (Pain Scale 1-3) Last Admin: 09/01/21 07:02 Dose: 800 mg Documented by: Lamotrigine (Lamotrigine 25 Mg Tablet) 25 mg PO BEDTIME [facility] Last Admin: 08/31/21 19:30 Dose: 25 mg Documented by: Lidocaine (Lidocaine 4 % Patch Adh..Patch) 1 patch TRANSDERMA DAILY [facility]; Protocol Last Admin: 09/01/21 10:15 Dose: Not Given Documented by: Lidocaine (Lidocaine 4 % Patch Adh..Patch) 1 patch TRANSDERMA DAILY [facility]; Protocol Last Admin: 09/01/21 10:16 Dose: Not Given Documented by: [place] Carbonate ([place] Carbonate 300 Mg Tablet) 600 mg PO BID [facility] Last Admin: 09/01/21 08:40 Dose: 600 mg Documented by: Lorazepam (Lorazepam 0.5 Mg Tablet) 0.5 mg PO Q8H PRN PRN Reason: Anxiety Last Admin: 08/31/21 16:31 Dose: 0.5 mg Documented by: Magnesium Citrate (Magnesium Citrate 300 Ml Solution) 300 ml PO DAILY PRN PRN Reason: Constipation Last Admin: 08/26/21 05:34 Dose: 300 ml Documented by: Magnesium Hydroxide (Milk Of Magnesia 30 Ml Oral.Susp) 30 ml PO DAILY PRN PRN Reason: Constipation Last Admin: 08/31/21 20:05 Dose: 30 ml Documented by: Melatonin (Melatonin 3 Mg Tablet) 9 mg PO BEDTIME [facility] Last Admin: 08/31/21 19:29 Dose: 9 mg Documented by: Multi-Ingred Cream/Lotion/Oil/Oint (Mineral Oil/Petrolatum,White 106 Gm Tube) 1 appl TOPICAL BID [facility]; Protocol Last Admin: 09/01/21 08:44 Dose: 1 appl Documented by: Multivitamins/Vitamin C (Multivitamin Tablet) 1 tab PO DAILY [facility] Last Admin: 09/01/21 08:43 Dose: 1 tab Documented by: Nicotine Polacrilex (Nicotine Polacrilex 2 Mg Gum) 4 mg BUCCAL Q1H PRN PRN Reason: Nicotine Cravings Last Admin: 09/01/21 13:11 Dose: 4 mg Documented by: Psyllium Hydrophilic Mucilloid (Psyllium Seed 3.4 Gm Powd.Pack) 3.4 gm PO DAILY [facility] Last Admin: 09/01/21 08:35 Dose: 3.4 gm Documented by: Quetiapine Fumarate (Quetiapine Fumarate 100 Mg Tablet) 100 mg PO Q6H PRN PRN Reason: anxiety/restlessness Last Admin: 08/28/21 17:31 Dose: 100 mg Documented by: Quetiapine Fumarate (Quetiapine Fumarate 200 Mg Tablet) 200 mg PO BEDTIME [facility] Last Admin: 08/31/21 19:29 Dose: 200 mg Documented by: Quetiapine Fumarate (Quetiapine Fumarate 50 Mg Tablet) 50 mg PO BID PRN PRN Reason: agitation, lability Ropinirole HCl (Ropinirole Hcl 1 Mg Tablet) 1 mg PO BID [facility] Last Admin: 09/01/21 08:37 Dose: 1 mg Documented by: Senna/Docusate Sodium (Sennosides/Docusate Sodium Tablet) 1 tab PO BID [facility] Last Admin: 09/01/21 08:44 Dose: 1 tab Documented by: Simethicone (Simethicone 80 Mg Tab.Chew) 80 mg PO QIDWMHS PRN PRN Reason: indigestion Allergies Allergies Allergy/AdvReac Type Severity Reaction Status Date / Time [facility] Allergy Unknown Involuntary Verified 08/19/21 07:20 Spasms chlorpromazine Allergy Unknown Nausea and Verified 08/19/21 07:20 [From Thorazine] Vomiting haloperidol [From Haldol] Allergy Unknown Involuntary Verified 08/19/21 07:20 Spasms olanzapine [From Zyprexa] Allergy Unknown Involuntary Verified 08/19/21 07:20 Spasms paliperidone [From Invega] Allergy Unknown Hallucinati Verified 08/19/21 07:20 ons risperidone Allergy Unknown Involuntary Verified 08/19/21 07:20 Spasms Assessment & Plan Assessment & Plan (1) Schizoaffective disorder, bipolar type: Status: Acute Code(s): F25.0 - Schizoaffective disorder, bipolar type Assessment and Plan: Pt is a 55 y.o. Female who carries a diagnosis of schizoaffective disorder, bipolar type. [place] [facility] [place] [facility] ED due to disorganized behavior, paranoid thought content, and racing thoughts. In the ED, pt was prescribed gabapentin 300 mg, ativan 1 mg, seroquel 200 mg. However, she intermittently refused seroquel due to reported akathesia, stating ?it will make me flop like a fish all night.? Plan: Pt was hypertensive, given clonidine 0.1 mg QHS due to BP of 169/84, 173/85mmHg. Pt willing to take seroquel 50 mg BID with requip 0.5 mg BID to treat akathesia. Will trial vraylar 1.5 mg to target manic and psychotic sx, as pt reports being unable to tolerate multiple typical and atypical agents. She is also unwilling to take any mood stabilizer that requires lab monitoring. Will continue gabapentin 300 mg BID for anxiety, as well as to help with sciatica. PLAN 1. Discontinued Vraylar 1/ at pt request 2. Started depakote 500mg po BID, clonazepam 1mg po BID. DCed VPA 08/24 at pt request as she agreed to start lithium. refusing to take more than 150 mg BID of lithium. 3. Aftercare planning 08/26/21 Augmentin 125 mg bid for tooth loss Continue current regime. Pt declines other changes at this time. 08/27/21 Increase Gabapentin to 600 mg tid Ibuprofen prn Hemorrhoid suppository prn PT reports pt is not in need of a walker. 08/28 declines mood stabilizer, reports allergies to most antipsychotic but received geodon few days ago without signs of side effects or allergy. alabile, intrusive disorganized 08/31/21: Increase Gabapentin to 800 mg tid. Discussed with pt titrating Seroquel to improve clarity-she will consider. 09/01/21: Medication review with pt. By report of providers, pt does well on a combination of Seroquel/Lamictal Providers encourage discontinuation of [place] as pt has overdosed and become toxic several times. Will transition off [place] when Lamictal is titrated and she allows Seroquel titration. I spent 40 minutes with the patient and/or on the patient floor today, greater than?50% of which was spent counseling/coordinating care. Patient educated on: medication risk/benefits and therapeutic strategies Informed Consent: further education needed Reason for contiued inpatient stay Substantial Risk for: harm to self, harm to others, inability to function and rapid decompensation
[2021-09-01 20:50] VITALS: BP 129/99; PULSE 92; TEMP 36.4
[2021-09-01] MEDS: cloNIDine HCL 0.1 MG TABLET PO (20:56)
[2021-09-01] MEDS: lamoTRIgine 25 MG TABLET PO (20:56)
[2021-09-01] MEDS: Melatonin 3 MG TABLET 9 MG PO (20:57)
[2021-09-01] MEDS: QUEtiapine Fumarate 200 MG TABLET PO (20:57)
[2021-09-01] MEDS: clonazePAM 1 MG TABLET PO (20:59)
[2021-09-01] MEDS: Artificial Tears 15 ML DROPS 1 DROP EYE-BOTH (21:01)
[2021-09-02 06:00] VITALS: BP 89/52; PULSE 76; RESP 18; TEMP 36.2; O2SAT 98
[2021-09-02] MEDS: Amoxicillin/Potassium Clav 250 MG TABLET 125 MG PO (06:40)
[2021-09-02] MEDS: Lidocaine 4 % Patch ADH..PATCH 1 PATCH TRANSDERMA ×2 (08:47→08:48)
[2021-09-02] MEDS: Mineral Oil/Petrolatum,White 106 GM Tube 1 APPL TOPICAL (08:47)
[2021-09-02] MEDS: rOPINIRole HCL 1 MG TABLET PO (08:49)
[2021-09-02] MEDS: Gabapentin 400 MG CAPSULE 800 MG PO ×3 (08:49→20:26)
[2021-09-02] MEDS: Sennosides/Docusate Sodium TABLET 1 TAB PO ×2 (08:49→20:28)
[2021-09-02] MEDS: Cyanocobalamin (Vitamin B-12) 100 MCG TABLET PO (08:49)
[2021-09-02] MEDS: Multivitamin TABLET 1 TAB PO (08:49)
[2021-09-02] MEDS: LORazepam 0.5 MG TABLET PO (10:00)
[2021-09-02] MEDS: Nicotine Polacrilex 2 MG GUM 4 MG BUCCAL ×2 (15:50→20:37)
[2021-09-02] MEDS: Ibuprofen 800 MG TABLET PO (17:10)
--- NOTE | 2021-09-02 18:15 | HO.PSYCHPN ---
Subjective Subjective Date of Service: 09/02/21 Reason For Visit: Bipolar, Schizoaffective Subjective Notes: Conditional Voluntary Healthcare Proxy: No Guardianship: No Medical Problems Affecting Mental Status: No Interim History: Discussion of symptoms and behaviors of concern with pt. She would like to stop [place]armen-agrees to titrate Seroquel and we will begin to taper as Lamictal and Seroquel manage symptoms. Per team report, pt is taking nicorette gum and sticking it on items in milieu. Discussed with pt-she will cease these actions or we will need to change to the patch. Neuro consult ordered for sciatic pain. Medication Compliance: Yes Side effects from medications: No Attending Groups: No Review of Systems Acute medical concerns: No Medical Review of Systems: unchanged Review of Systems Musculoskeletal: Reports other (sciatica) Reports behavioral changes and Reports memory loss Psychiatric: Reports anxiety, Reports behavioral changes, Reports change in appetite, Reports difficulty concentrating, Reports auditory hallucinations, Reports irritability, Reports anhedonia, Reports memory loss, Reports mood swings, Reports paranoia and Reports visual hallucinations Mental Status Exam Mental Status Exam Patient Appearance: Disheveled Patient Orientation: Person, Place and Situation Level of Consciousness: Alert Patient Behavior: Talkative, Cooperative, Suspicious, Restless, Anxious, Resistive to Care, Avoidant, Fatigued, Distractible, Confused, Good Eye Contact and Impulsive Mood Description: Labile Affect Description: Labile Patient Cognition Impaired: No Ability to Follow Directions: Good Speech Pattern: Perseverating, Spontaneous Speech, Rambling, Cofabulation and Pressured Memory Description: Remote Impaired Hallucinations: Auditory and Visual Delusions: Being Controlled, Paranoid Ideation and Grandiose Perceptual Disturbances: Depersonalization and Derealization Thought Process: Racing, Illogical, Distracted, Rumination and Confusion Thought Content: positive for Flight of Ideas, positive for Racing, positive for [place], positive for Circumstantial, positive for Perseveration, positive for Preoccupation, positive for Loose Associations, positive for Thought Blocking, positive for Tangential and positive for Disorganized Depressive Symptoms: Diff. Making Decisions, Increased Irritability and Difficulty Concentrating Abnormal Motor Activity Signs and Symptoms: Hyperactivity and Restlessness Judgement: Poor Diagnostics Vital Signs (24Hr): Vital Signs - 24 hr 09/01/21 20:50 09/02/21 06:00 Temperature 97.5 F 97.1 F Pulse Rate 92 76 Respiratory Rate 18 Blood Pressure 129/99 H 89/52 L Pulse Oximetry 98 BMI result Body Mass Index 32.8 Labs Labs: Laboratory Results - last 48 hr 09/01/21 10:30 Beta HCG, Quant 4 Imaging Radiology Impressions: ITS Impressions Abdomen Ultrasound 09/01/21 08:59 IMPRESSION: Slightly echogenic liver. Limited evaluation of the gallbladder as the patient has recently eaten. No gallstone seen. Limited visualization of the pancreas. Medications Medications Current Medications Acetaminophen (Acetaminophen 325 Mg Tablet) 650 mg PO Q6H PRN PRN Reason: Headache/Pain Mild Scale (1-3) Last Admin: 09/01/21 13:11 Dose: 650 mg Documented by: Al Hydroxide/Mg Hydroxide (Magnesium Hydrox/Alum Hydrox 30 Ml Oral.Susp) 30 ml PO Q6H PRN PRN Reason: Heartburn/Nausea Last Admin: 08/22/21 05:54 Dose: 30 ml Documented by: Artificial Tears (Artificial Tears 15 Ml Drops) 2 drop EYE-BOTH Q4H PRN PRN Reason: dry eyes Last Admin: 09/01/21 09:32 Dose: 2 drop Documented by: Artificial Tears (Artificial Tears 15 Ml Drops) 1 drop EYE-BOTH Q4H PRN PRN Reason: Dry Eyes Last Admin: 09/01/21 21:01 Dose: 1 drop Documented by: Aspirin (Aspirin Enteric Coated 325 Mg Tablet.) 650 mg PO DAILY PRN PRN Reason: headache Last Admin: 08/28/21 11:13 Dose: 650 mg Documented by: Benzocaine (Benzocaine 20 % Oral Gel 9 Gm Tube) 1 appl MUCOUS MEM QID PRN; Protocol PRN Reason: Mouth Sore Pain Last Admin: 08/31/21 03:05 Dose: 1 appl Documented by: Calcium Carbonate (Calcium Carbonate 500 Mg Tablet) 500 mg PO DAILY YAYA Last Admin: 09/02/21 08:49 Dose: 500 mg Documented by: Clonazepam (Clonazepam 1 Mg Tablet) 1 mg PO BID PRN PRN Reason: anxiety Last Admin: 09/01/21 20:59 Dose: 1 mg Documented by: Clonidine HCl (Clonidine Hcl 0.1 Mg Tablet) 0.1 mg PO BEDTIME YAYA; Protocol Last Admin: 09/01/21 20:56 Dose: 0.1 mg Documented by: [place] Butter/Zinc Oxide ([place] Butter/Zinc Oxide Supp.Rect) 1 supp [place] BID PRN PRN Reason: hemorrhoid pain Cyanocobalamin (Cyanocobalamin (Vitamin B-12) 100 Mcg Tablet) 100 mcg PO DAILY [facility] Last Admin: 09/02/21 08:49 Dose: 100 mcg Documented by: Diphenhydramine HCl (Diphenhydramine Hcl 25 Mg Tablet) 50 mg PO Q6H PRN PRN Reason: eps Gabapentin (Gabapentin 400 Mg Capsule) 800 mg PO TID [facility] Last Admin: 09/02/21 15:49 Dose: 800 mg Documented by: Hydroxyzine HCl (Hydroxyzine Hcl 25 Mg Tablet) 25 mg PO BEDTIME PRN PRN Reason: Anxiety Last Admin: 08/29/21 06:21 Dose: 25 mg Documented by: Ibuprofen (Ibuprofen 800 Mg Tablet) 800 mg PO Q8H PRN PRN Reason: Pain, Mild (Pain Scale 1-3) Last Admin: 09/02/21 17:10 Dose: 800 mg Documented by: Lamotrigine (Lamotrigine 25 Mg Tablet) 25 mg PO BEDTIME YAYA Last Admin: 09/01/21 20:56 Dose: 25 mg Documented by: Lidocaine (Lidocaine 4 % Patch Adh..Patch) 1 patch TRANSDERMA DAILY [facility]; Protocol Last Admin: 09/02/21 08:47 Dose: 1 patch Documented by: Lidocaine (Lidocaine 4 % Patch Adh..Patch) 1 patch TRANSDERMA DAILY [facility]; Protocol Last Admin: 09/02/21 08:48 Dose: 1 patch Documented by: [place] Carbonate ([place] Carbonate 300 Mg Tablet) 600 mg PO BID [facility] Last Admin: 09/02/21 10:02 Dose: Not Given Documented by: Lorazepam (Lorazepam 0.5 Mg Tablet) 0.5 mg PO Q8H PRN PRN Reason: Anxiety Last Admin: 09/02/21 10:00 Dose: 0.5 mg Documented by: Magnesium Citrate (Magnesium Citrate 300 Ml Solution) 300 ml PO DAILY PRN PRN Reason: Constipation Last Admin: 08/26/21 05:34 Dose: 300 ml Documented by: Magnesium Hydroxide (Milk Of Magnesia 30 Ml Oral.Susp) 30 ml PO DAILY PRN PRN Reason: Constipation Last Admin: 08/31/21 20:05 Dose: 30 ml Documented by: Melatonin (Melatonin 3 Mg Tablet) 9 mg PO BEDTIME YAYA Last Admin: 09/01/21 20:57 Dose: 9 mg Documented by: Multi-Ingred Cream/Lotion/Oil/Oint (Mineral Oil/Petrolatum,White 106 Gm Tube) 1 appl TOPICAL BID [facility]; Protocol Last Admin: 09/02/21 08:47 Dose: 1 appl Documented by: Multivitamins/Vitamin C (Multivitamin Tablet) 1 tab PO DAILY [facility] Last Admin: 09/02/21 08:49 Dose: 1 tab Documented by: Nicotine Polacrilex (Nicotine Polacrilex 2 Mg Gum) 4 mg BUCCAL Q1H PRN PRN Reason: Nicotine Cravings Last Admin: 09/02/21 15:50 Dose: 4 mg Documented by: Psyllium Hydrophilic Mucilloid (Psyllium Seed 3.4 Gm Powd.Pack) 3.4 gm PO DAILY [facility] Last Admin: 09/02/21 08:49 Dose: 3.4 gm Documented by: Quetiapine Fumarate (Quetiapine Fumarate 100 Mg Tablet) 100 mg PO Q6H PRN PRN Reason: anxiety/restlessness Last Admin: 08/28/21 17:31 Dose: 100 mg Documented by: Quetiapine Fumarate (Quetiapine Fumarate 50 Mg Tablet) 50 mg PO BID PRN PRN Reason: agitation, lability Quetiapine Fumarate (Quetiapine Fumarate 50 Mg Tablet) 250 mg PO BEDTIME [facility] Quetiapine Fumarate (Quetiapine Fumarate 100 Mg Tablet) 100 mg PO DAILY [facility] Ropinirole HCl (Ropinirole Hcl 1 Mg Tablet) 2 mg PO 1900 [facility] Ropinirole HCl (Ropinirole Hcl 0.5 Mg Tablet) 0.5 mg PO 0800 [facility] Senna/Docusate Sodium (Sennosides/Docusate Sodium Tablet) 1 tab PO BID [facility] Last Admin: 09/02/21 08:49 Dose: 1 tab Documented by: Simethicone (Simethicone 80 Mg Tab.Chew) 80 mg PO QIDWMHS PRN PRN Reason: indigestion Allergies Allergies Allergy/AdvReac Type Severity Reaction Status Date / Time aripiprazole [From Abilify] Allergy Unknown Involuntary Verified 08/19/21 07:20 Spasms chlorpromazine Allergy Unknown Nausea and Verified 08/19/21 07:20 [From Thorazine] Vomiting haloperidol [From Haldol] Allergy Unknown Involuntary Verified 08/19/21 07:20 Spasms olanzapine [From Zyprexa] Allergy Unknown Involuntary Verified 08/19/21 07:20 Spasms paliperidone [From Invega] Allergy Unknown Hallucinati Verified 08/19/21 07:20 ons risperidone Allergy Unknown Involuntary Verified 08/19/21 07:20 Spasms Assessment & Plan Assessment & Plan (1) Schizoaffective disorder, bipolar type: Status: Acute Code(s): F25.0 - Schizoaffective disorder, bipolar type Assessment and Plan: Pt is a 55 y.o. Female who carries a diagnosis of schizoaffective disorder, bipolar type. Pt presented to [facility] from [facility] ED due to disorganized behavior, paranoid thought content, and racing thoughts. In the ED, pt was prescribed gabapentin 300 mg, ativan 1 mg, seroquel 200 mg. However, she intermittently refused seroquel due to reported akathesia, stating ?it will make me flop like a fish all night.? Plan: Pt was hypertensive, given clonidine 0.1 mg QHS due to BP of 169/84, 173/85mmHg. Pt willing to take seroquel 50 mg BID with requip 0.5 mg BID to treat akathesia. Will trial vraylar 1.5 mg to target manic and psychotic sx, as pt reports being unable to tolerate multiple typical and atypical agents. She is also unwilling to take any mood stabilizer that requires lab monitoring. Will continue gabapentin 300 mg BID for anxiety, as well as to help with sciatica. PLAN 1. Discontinued Vraylar 1 at pt request 2. Started depakote 500mg po BID, clonazepam 1mg po BID. DCed VPA 08/24 at pt request as she agreed to start lithium. refusing to take more than 150 mg BID of lithium. 3. Aftercare planning 08/26/21 Augmentin 125 mg bid for tooth loss Continue current regime. Pt declines other changes at this time. 08/27/21 Increase Gabapentin to 600 mg tid Ibuprofen prn Hemorrhoid suppository prn PT reports pt is not in need of a walker. 08/28 declines mood stabilizer, reports allergies to most antipsychotic but received geodon few days ago without signs of side effects or allergy. alabile, intrusive disorganized 08/31/21: Increase Gabapentin to 800 mg tid. Discussed with pt titrating Seroquel to improve clarity-she will consider. 09/02/21: Increase Seroquel to 100 mg a.m. and 250 mg p.m. Increase Requip to 2 mg hs and 0.5 mg a.m I spent 40 minutes with the patient and/or on the patient floor today, greater than?50% of which was spent counseling/coordinating care. Patient educated on: medication risk/benefits and therapeutic strategies Informed Consent: understands and further education needed Reason for contiued inpatient stay Substantial Risk for: harm to self, harm to others, inability to function and rapid decompensation
[2021-09-02 20:15] VITALS: BP 129/71; PULSE 84; TEMP 36.7
[2021-09-02] MEDS: Melatonin 3 MG TABLET 9 MG PO (20:26)
[2021-09-02] MEDS: QUEtiapine Fumarate 50 MG TABLET 250 MG PO (20:27)
[2021-09-02] MEDS: Lithium Carbonate 300 MG TABLET 600 MG PO (20:28)
[2021-09-02] MEDS: lamoTRIgine 25 MG TABLET PO (20:28)
[2021-09-02] MEDS: cloNIDine HCL 0.1 MG TABLET PO (20:28)
[2021-09-02] MEDS: rOPINIRole HCL 1 MG TABLET 2 MG PO (20:34)
[2021-09-03] MEDS: Nicotine Polacrilex 2 MG GUM 4 MG BUCCAL ×4 (05:26→19:57)
[2021-09-03] MEDS: LORazepam 0.5 MG TABLET PO ×2 (05:26→14:34)
[2021-09-03 05:54] VITALS: BP 160/98; PULSE 80; RESP 22; TEMP 36.6; O2SAT 98
[2021-09-03] MEDS: Cyanocobalamin (Vitamin B-12) 100 MCG TABLET PO (09:05)
[2021-09-03] MEDS: Sennosides/Docusate Sodium TABLET 1 TAB PO ×2 (09:05→19:46)
[2021-09-03] MEDS: Gabapentin 400 MG CAPSULE 800 MG PO ×3 (09:05→19:40)
[2021-09-03] MEDS: Multivitamin TABLET 1 TAB PO (09:05)
[2021-09-03] MEDS: rOPINIRole HCL 0.5 MG TABLET PO (09:05)
[2021-09-03] MEDS: Mineral Oil/Petrolatum,White 106 GM Tube 1 APPL TOPICAL (09:06)
[2021-09-03] MEDS: Ziprasidone Mesylate 20 MG VIAL IM (09:40)
[2021-09-03] MEDS: LORazepam 2 MG/ML VIAL 1 MG IM (09:40)
[2021-09-03] MEDS: Magnesium Citrate 300 ML SOLUTION PO (14:37)
--- NOTE | 2021-09-03 17:17 | HO.PSYCHPN ---
Subjective Subjective Date of Service: 09/03/21 Reason For Visit: Bipolar, Schizoaffective Subjective Notes: Conditional Voluntary Healthcare Proxy: No Guardianship: No Medical Problems Affecting Mental Status: No Interim History: Blanca required chemical restraint this morning for aggressive agitation with throwing of feces at the team. Given Geodon 20 mg IM/Ativan 1 mg IM with positive effect. She slept for part of the morning but was awake and alert this afternoon. Met with Blanca to discuss issues. She is alert, oriented and responding to internal stimuli at times. Review of diagnoses-schizoaffective disorder, bipolar type and PTSD. Pt believes PTSD is the only diagnoses. Discussed. Review of symptoms and behaviors-pt states you are going to put me out on the street-everyone else has . Discussed that we would agree on a regime today or we would need to apply for civil commitment to have the court evaluate pt's condition and recommend a course. Pt reports she has had Section VII several times and I have never lost . Discussed her eviction from the rooming house, the several restraining orders from others and how she will not be able to move forward unless she has appropriate symptom management. Review of all of her medications. OP team tells us she does best on a combination of Seroquel/Lamictal. Pt agrees to Seroquel increases and Geodon prn. She agrees not to throw feces and is able to articulate the infection control concerns with this action. She asks to continue her admission and not be placed on Section VII. Medication Compliance: Intermittent Side effects from medications: Yes (RLS) Attending Groups: No Review of Systems Acute medical concerns: No Review of Systems: sciatic pain Review of Systems Musculoskeletal: Reports other (sciatica) Reports behavioral changes, Reports confusion and Reports memory loss Psychiatric: Reports anxiety, Reports behavioral changes, Reports change in appetite, Reports confusion, Reports difficulty concentrating, Reports auditory hallucinations, Reports irritability, Reports anhedonia, Reports memory loss, Reports mood swings, Reports paranoia, Reports visual hallucinations, Reports hallucinations, Reports homicidal ideation (denies) and Reports suicidal ideation (denies) Mental Status Exam Mental Status Exam Patient Appearance: Disheveled Patient Orientation: Person, Place and Situation Level of Consciousness: Alert Patient Behavior: Talkative, Cooperative, Suspicious, Restless, Anxious, Resistive to Care, Avoidant, Fatigued, Distractible, Confused, Good Eye Contact and Impulsive Mood Description: Labile Affect Description: Labile Patient Cognition Impaired: No Ability to Follow Directions: Good Speech Pattern: Perseverating, Spontaneous Speech, Rambling, Cofabulation and Pressured Memory Description: Remote Impaired Hallucinations: Auditory and Visual Delusions: Being Controlled, Paranoid Ideation and Grandiose Perceptual Disturbances: Depersonalization and Derealization Thought Process: Racing, Illogical, Distracted, Rumination and Confusion Thought Content: positive for Flight of Ideas, positive for Racing, positive for [place], positive for Circumstantial, positive for Perseveration, positive for Preoccupation, positive for Loose Associations, positive for Thought Blocking, positive for Tangential and positive for Disorganized Depressive Symptoms: Diff. Making Decisions, Increased Irritability and Difficulty Concentrating Abnormal Motor Activity Signs and Symptoms: Hyperactivity and Restlessness Judgement: Poor Diagnostics Vital Signs (24Hr): Vital Signs - 24 hr 09/02/21 20:15 09/03/21 05:54 Temperature 98.0 F 97.8 F Pulse Rate 84 80 Respiratory Rate 22 H Blood Pressure 129/71 160/98 H Pulse Oximetry 98 BMI result Body Mass Index 32.8 Imaging Radiology Impressions: ITS Impressions Abdomen Ultrasound 09/01/21 08:59 IMPRESSION: Slightly echogenic liver. Limited evaluation of the gallbladder as the patient has recently eaten. No gallstone seen. Limited visualization of the pancreas. Medications Medications Current Medications Acetaminophen (Acetaminophen 325 Mg Tablet) 650 mg PO Q6H PRN PRN Reason: Headache/Pain Mild Scale (1-3) Last Admin: 09/01/21 13:11 Dose: 650 mg Documented by: Al Hydroxide/Mg Hydroxide (Magnesium Hydrox/Alum Hydrox 30 Ml Oral.Susp) 30 ml PO Q6H PRN PRN Reason: Heartburn/Nausea Last Admin: 08/22/21 05:54 Dose: 30 ml Documented by: Artificial Tears (Artificial Tears 15 Ml Drops) 2 drop EYE-BOTH Q4H PRN PRN Reason: dry eyes Last Admin: 09/01/21 09:32 Dose: 2 drop Documented by: Artificial Tears (Artificial Tears 15 Ml Drops) 1 drop EYE-BOTH Q4H PRN PRN Reason: Dry Eyes Last Admin: 09/01/21 21:01 Dose: 1 drop Documented by: Aspirin (Aspirin Enteric Coated 325 Mg Tablet.) 650 mg PO DAILY PRN PRN Reason: headache Last Admin: 08/28/21 11:13 Dose: 650 mg Documented by: Benzocaine (Benzocaine 20 % Oral Gel 9 Gm Tube) 1 appl MUCOUS MEM QID PRN; Protocol PRN Reason: Mouth Sore Pain Last Admin: 08/31/21 03:05 Dose: 1 appl Documented by: Calcium Carbonate (Calcium Carbonate 500 Mg Tablet) 500 mg PO DAILY [facility]AY[facility] Last Admin: 09/03/21 09:05 Dose: 500 mg Documented by: Clonidine HCl (Clonidine Hcl 0.1 Mg Tablet) 0.1 mg PO BEDTIME YAYA; Protocol Last Admin: 09/02/21 20:28 Dose: 0.1 mg Documented by: [place] Butter/Zinc Oxide ([place] Butter/Zinc Oxide Supp.Rect) 1 supp [place] BID PRN PRN Reason: hemorrhoid pain Cyanocobalamin (Cyanocobalamin (Vitamin B-12) 100 Mcg Tablet) 100 mcg PO DAILY [facility] Last Admin: 09/03/21 09:05 Dose: 100 mcg Documented by: Diphenhydramine HCl (Diphenhydramine Hcl 25 Mg Tablet) 50 mg PO Q6H PRN PRN Reason: eps Gabapentin (Gabapentin 400 Mg Capsule) 800 mg PO TID [facility] Last Admin: 09/03/21 14:34 Dose: 800 mg Documented by: Hydroxyzine HCl (Hydroxyzine Hcl 25 Mg Tablet) 25 mg PO BEDTIME PRN PRN Reason: Anxiety Last Admin: 08/29/21 06:21 Dose: 25 mg Documented by: Ibuprofen (Ibuprofen 800 Mg Tablet) 800 mg PO Q8H PRN PRN Reason: Pain, Mild (Pain Scale 1-3) Last Admin: 09/02/21 17:10 Dose: 800 mg Documented by: Lamotrigine (Lamotrigine 25 Mg Tablet) 25 mg PO BEDTIME YAYA Last Admin: 09/02/21 20:28 Dose: 25 mg Documented by: Lidocaine (Lidocaine 4 % Patch Adh..Patch) 1 patch TRANSDERMA DAILY [facility]; Protocol Last Admin: 09/03/21 09:13 Dose: Not Given Documented by: Lidocaine (Lidocaine 4 % Patch Adh..Patch) 1 patch TRANSDERMA DAILY [facility]; Protocol Last Admin: 09/03/21 09:13 Dose: Not Given Documented by: [place] Carbonate ([place] Carbonate 300 Mg Tablet) 300 mg PO BID YAYA Lorazepam (Lorazepam 0.5 Mg Tablet) 0.5 mg PO Q8H PRN PRN Reason: Anxiety Last Admin: 09/03/21 14:34 Dose: 0.5 mg Documented by: Magnesium Citrate (Magnesium Citrate 300 Ml Solution) 300 ml PO DAILY PRN PRN Reason: Constipation Last Admin: 09/03/21 14:37 Dose: 300 ml Documented by: Magnesium Hydroxide (Milk Of Magnesia 30 Ml Oral.Susp) 30 ml PO DAILY PRN PRN Reason: Constipation Last Admin: 08/31/21 20:05 Dose: 30 ml Documented by: Melatonin (Melatonin 3 Mg Tablet) 9 mg PO BEDTIME YAYA Last Admin: 09/02/21 20:26 Dose: 9 mg Documented by: Multi-Ingred Cream/Lotion/Oil/Oint (Mineral Oil/Petrolatum,White 106 Gm Tube) 1 appl TOPICAL BID [facility]; Protocol Last Admin: 09/03/21 09:06 Dose: 1 appl Documented by: Multivitamins/Vitamin C (Multivitamin Tablet) 1 tab PO DAILY [facility] Last Admin: 09/03/21 09:05 Dose: 1 tab Documented by: Nicotine Polacrilex (Nicotine Polacrilex 2 Mg Gum) 4 mg BUCCAL Q1H PRN PRN Reason: Nicotine Cravings Last Admin: 09/03/21 17:05 Dose: 4 mg Documented by: Psyllium Hydrophilic Mucilloid (Psyll[place] Seed 3.4 Gm Powd.Pack) 3.4 gm PO DAILY [facility] Last Admin: 09/03/21 09:12 Dose: Not Given Documented by: Quetiapine Fumarate (Quetiapine Fumarate 100 Mg Tablet) 100 mg PO Q6H PRN PRN Reason: anxiety/restlessness Last Admin: 08/28/21 17:31 Dose: 100 mg Documented by: Quetiapine Fumarate (Quetiapine Fumarate 300 Mg Tablet) 300 mg PO BEDTIME [facility] Quetiapine Fumarate (Quetiapine Fumarate 100 Mg Tablet) 250 mg PO DAILY [facility] Ropinirole HCl (Ropinirole Hcl 1 Mg Tablet) 2 mg PO 1900 [facility] Last Admin: 09/02/21 20:34 Dose: 2 mg Documented by: Ropinirole HCl (Ropinirole Hcl 0.5 Mg Tablet) 0.5 mg PO 0800 [facility] Last Admin: 09/03/21 09:05 Dose: 0.5 mg Documented by: Senna/Docusate Sodium (Sennosides/Docusate Sodium Tablet) 1 tab PO BID [facility] Last Admin: 09/03/21 09:05 Dose: 1 tab Documented by: Simethicone (Simethicone 80 Mg Tab.Chew) 80 mg PO QIDWMHS PRN PRN Reason: indigestion Trolamine Salicylate/Aloe Vera (Trolamine Salicylate 10%/Aloe Cream 35.4 Gm) 1 appl TOPICAL TID PRN PRN Reason: sciatica Last Admin: 09/03/21 05:27 Dose: 1 appl Documented by: Valacyclovir HCl (Valacycyclovir Hcl 500 Mg Tablet) 500 mg PO BID Y[facility] Stop: 09/08/21 21:00 Ziprasidone (Ziprasidone 20 Mg Capsule) 20 mg PO BID PRN PRN Reason: psychosis Allergies Allergies Allergy/AdvReac Type Severity Reaction Status Date / Time aripiprazole [From Abilify] Allergy Unknown Involuntary Verified 08/19/21 07:20 Spasms chlorpromazine Allergy Unknown Nausea and Verified 08/19/21 07:20 [From Thorazine] Vomiting haloperidol [From Haldol] Allergy Unknown Involuntary Verified 08/19/21 07:20 Spasms olanzapine [From Zyprexa] Allergy Unknown Involuntary Verified 08/19/21 07:20 Spasms paliperidone [From Invega] Allergy Unknown Hallucinati Verified 08/19/21 07:20 ons risperidone Allergy Unknown Involuntary Verified 08/19/21 07:20 Spasms Assessment & Plan Assessment & Plan (1) Schizoaffective disorder, bipolar type: Status: Acute Code(s): F25.0 - Schizoaffective disorder, bipolar type Assessment and Plan: Pt is a 55 y.o. Female who carries a diagnosis of schizoaffective disorder, bipolar type. Pt presented to [facility] from [facility] ED due to disorganized behavior, paranoid thought content, and racing thoughts. In the ED, pt was prescribed gabapentin 300 mg, ativan 1 mg, seroquel 200 mg. However, she intermittently refused seroquel due to reported akathesia, stating ?it will make me flop like a fish all night.? Plan: Pt was hypertensive, given clonidine 0.1 mg QHS due to BP of 169/84, 173/85mmHg. Pt willing to take seroquel 50 mg BID with requip 0.5 mg BID to treat akathesia. Will trial vraylar 1.5 mg to target manic and psychotic sx, as pt reports being unable to tolerate multiple typical and atypical agents. She is also unwilling to take any mood stabilizer that requires lab monitoring. Will continue gabapentin 300 mg BID for anxiety, as well as to help with sciatica. PLAN 1. Discontinued Vraylar 08/24 at pt request 2. Started depakote 500mg po BID, clonazepam 1mg po BID. DCed VPA 08/24 at pt request as she agreed to start lithium. refusing to take more than 150 mg BID of lithium. 3. Aftercare planning 08/26/21 Augmentin 125 mg bid for tooth loss Continue current regime. Pt declines other changes at this time. 08/27/21 Increase Gabapentin to 600 mg tid Ibuprofen prn Hemorrhoid suppository prn PT reports pt is not in need of a walker. 08/28 declines mood stabilizer, reports allergies to most antipsychotic but received geodon few days ago without signs of side effects or allergy. alabile, intrusive disorganized 08/31/21: Increase Gabapentin to 800 mg tid. Discussed with pt titrating Seroquel to improve clarity-she will consider. 09/02/21: Increase Seroquel to 100 mg a.m. and 250 mg p.m. Increase Requip to 2 mg hs and 0.5 mg a.m 09/03/21: Increase Seroquel to 250 mg a.m. 300 mg HS Geodon 20 mg bid prn psychotic agitation Decrease [place] to 300 mg bid (OP team would like pt to be off of this). Depakote ER 500 mg HS I spent 45 minutes with the patient and/or on the patient floor today, greater than?50% of which was spent counseling/coordinating care. Patient educated on: diagnosis, medication risk/benefits and medical condition Informed Consent: further education needed Reason for contiued inpatient stay Substantial Risk for: harm to self, harm to others, inability to function, rapid decompensation and med/psych decompensation
[2021-09-03 18:23] VITALS: BP 135/95; PULSE 91; RESP 18; TEMP 36.9; O2SAT 98
[2021-09-03] MEDS: lamoTRIgine 25 MG TABLET PO (19:42)
[2021-09-03] MEDS: QUEtiapine Fumarate 300 MG TABLET PO (19:42)
[2021-09-03] MEDS: Melatonin 3 MG TABLET 9 MG PO (19:42)
[2021-09-03] MEDS: Divalproex Sodium ER 500 MG TAB.ER.24H PO (19:44)
[2021-09-03] MEDS: Ibuprofen 800 MG TABLET PO (19:44)
[2021-09-03] MEDS: cloNIDine HCL 0.1 MG TABLET PO (19:45)
[2021-09-03] MEDS: rOPINIRole HCL 1 MG TABLET 2 MG PO (19:56)
[2021-09-03 20:11] VITALS: BP 118/65; PULSE 88; RESP 16; TEMP 36.8; O2SAT 98
[2021-09-04] MEDS: Nicotine Polacrilex 2 MG GUM 4 MG BUCCAL ×3 (07:57→20:45)
[2021-09-04] MEDS: rOPINIRole HCL 0.5 MG TABLET PO (08:29)
[2021-09-04] MEDS: Gabapentin 400 MG CAPSULE 800 MG PO ×3 (08:29→20:02)
[2021-09-04] MEDS: Ibuprofen 800 MG TABLET PO ×2 (08:30→21:53)
[2021-09-04] MEDS: QUEtiapine Fumarate 100 MG TABLET 250 MG PO (09:57)
[2021-09-04] MEDS: Multivitamin TABLET 1 TAB PO (09:57)
[2021-09-04] MEDS: Sennosides/Docusate Sodium TABLET 1 TAB PO ×2 (09:57→20:04)
[2021-09-04] MEDS: Lithium Carbonate 300 MG TABLET PO (09:57)
[2021-09-04] MEDS: Cyanocobalamin (Vitamin B-12) 100 MCG TABLET PO (09:57)
[2021-09-04] MEDS: LORazepam 0.5 MG TABLET PO (13:21)
[2021-09-04] MEDS: QUEtiapine Fumarate 100 MG TABLET PO (15:15)
--- NOTE | 2021-09-04 17:12 | P.PNPSI_ITS ---
Subjective Subjective Date of Service: 09/04/21 Reason For Visit: Bipolar, Schizoaffective Interim History: Patient manic, and either sitting by herself talking incessantly or with pressured speech when trying to interact and thus difficult to engage; frequently makes sexualized comments and has asked communications writer inappropriate questions about personal life; however patient was redirectable and staff reports that patient has overall been more responsive to redirection today; patient taking medications. Mental Status Exam Mental Status Exam Narrative: Patient Appearance:?unkempt Patient Orientation:?Person, Place Level of Consciousness:?Alert Patient Behavior:?Talkative, Restless, Distractible, Confused, Impulsive Eye contact: good Mood Description:?Labile Affect Description:?Labile Patient Cognition Impaired:?No Ability to Follow Directions:?poor but improving Speech Pattern:?pressured, Spontaneous Rambling speech Memory Description:?Remote Impaired Hallucinations:?Auditory and Visual Delusions:?Being Controlled, Paranoid Ideation and Grandiose Perceptual Disturbances:?Depersonalization and Derealization Thought Process:?Racing, disorganized, Distracted; can at times be goal oriented Thought Content:?positive for Flight of Ideas, positive for Racing, positive for [place], positive for Circumstantial, positive for Perseveration, positive for Preoccupation, positive for Loose Associations, positive for Thought Blocking, positive for Tangential and positive for Disorganized Abnormal Motor Activity Signs and Symptoms:?Hyperactivity and Restlessness Judgment/insight:?Poor Diagnostics Vital Signs (24Hr): Vital Signs - 24 hr 09/03/21 18:23 09/03/21 20:11 Temperature 98.4 F 98.2 F Pulse Rate 91 88 Respiratory Rate 18 16 Blood Pressure 135/95 H 118/65 Pulse Oximetry 98 98 BMI result Body Mass Index 32.8 Imaging Radiology Impressions: ITS Impressions Abdomen Ultrasound 09/01/21 08:59 IMPRESSION: Slightly echogenic liver. Limited evaluation of the gallbladder as the patient has recently eaten. No gallstone seen. Limited visualization of the pancreas. Medications Medications Current Medications Acetaminophen (Acetaminophen 325 Mg Tablet) 650 mg PO Q6H PRN PRN Reason: Headache/Pain Mild Scale (1-3) Last Admin: 09/01/21 13:11 Dose: 650 mg Documented by: Al Hydroxide/Mg Hydroxide (Magnesium Hydrox/Alum Hydrox 30 Ml Oral.Susp) 30 ml PO Q6H PRN PRN Reason: Heartburn/Nausea Last Admin: 08/22/21 05:54 Dose: 30 ml Documented by: Artificial Tears (Artificial Tears 15 Ml Drops) 2 drop EYE-BOTH Q4H PRN PRN Reason: dry eyes Last Admin: 09/01/21 09:32 Dose: 2 drop Documented by: Artificial Tears (Artificial Tears 15 Ml Drops) 1 drop EYE-BOTH Q4H PRN PRN Reason: Dry Eyes Last Admin: 09/01/21 21:01 Dose: 1 drop Documented by: Aspirin (Aspirin Enteric Coated 325 Mg Tablet.Dr) 650 mg PO DAILY PRN PRN Reason: headache Last Admin: 08/28/21 11:13 Dose: 650 mg Documented by: Benzocaine (Benzocaine 20 % Oral Gel 9 Gm Tube) 1 appl MUCOUS MEM QID PRN; Protocol PRN Reason: Mouth Sore Pain Last Admin: 08/31/21 03:05 Dose: 1 appl Documented by: Calcium Carbonate (Calcium Carbonate 500 Mg Tablet) 500 mg PO DAILY [facility] Last Admin: 09/04/21 09:56 Dose: 500 mg Documented by: Clonidine HCl (Clonidine Hcl 0.1 Mg Tablet) 0.1 mg PO BEDTIME [facility]; Protocol Last Admin: 09/03/21 19:45 Dose: 0.1 mg Documented by: [place] Butter/Zinc Oxide ([place] Butter/Zinc Oxide Supp.Rect) 1 supp IN BID PRN PRN Reason: hemorrhoid pain Cyanocobalamin (Cyanocobalamin (Vitamin B-12) 100 Mcg Tablet) 100 mcg PO DAILY [facility] Last Admin: 09/04/21 09:57 Dose: 100 mcg Documented by: Diphenhydramine HCl (Diphenhydramine Hcl 25 Mg Tablet) 50 mg PO Q6H PRN PRN Reason: eps Divalproex Sodium (Divalproex Sodium Er 500 Mg Tab.Er.24h) 500 mg PO BEDTIME [facility] Last Admin: 09/03/21 19:44 Dose: 500 mg Documented by: Gabapentin (Gabapentin 400 Mg Capsule) 800 mg PO TID [facility] Last Admin: 09/04/21 15:15 Dose: 800 mg Documented by: Hydroxyzine HCl (Hydroxyzine Hcl 25 Mg Tablet) 25 mg PO BEDTIME PRN PRN Reason: Anxiety Last Admin: 08/29/21 06:21 Dose: 25 mg Documented by: Ibuprofen (Ibuprofen 800 Mg Tablet) 800 mg PO Q8H PRN PRN Reason: Pain, Mild (Pain Scale 1-3) Last Admin: 09/04/21 08:30 Dose: 800 mg Documented by: Lamotrigine (Lamotrigine 25 Mg Tablet) 25 mg PO BEDTIME [facility] Last Admin: 09/03/21 19:42 Dose: 25 mg Documented by: Lidocaine (Lidocaine 4 % Patch Adh..Patch) 1 patch TRANSDERMA DAILY [facility]; Protocol Last Admin: 09/04/21 10:02 Dose: Not Given Documented by: Lidocaine (Lidocaine 4 % Patch Adh..Patch) 1 patch TRANSDERMA DAILY [facility]; Protocol Last Admin: 09/04/21 10:02 Dose: Not Given Documented by: [place] Carbonate ([place] Carbonate 300 Mg Tablet) 300 mg PO BID [facility] Last Admin: 09/04/21 09:57 Dose: 300 mg Documented by: Lorazepam (Lorazepam 0.5 Mg Tablet) 0.5 mg PO Q8H PRN PRN Reason: Anxiety Last Admin: 09/04/21 13:21 Dose: 0.5 mg Documented by: Magnesium Citrate (Magnesium Citrate 300 Ml Solution) 300 ml PO DAILY PRN PRN Reason: Constipation Last Admin: 09/03/21 14:37 Dose: 300 ml Documented by: Magnesium Hydroxide (Milk Of Magnesia 30 Ml Oral.Susp) 30 ml PO DAILY PRN PRN Reason: Constipation Last Admin: 08/31/21 20:05 Dose: 30 ml Documented by: Melatonin (Melatonin 3 Mg Tablet) 9 mg PO BEDTIME [facility] Last Admin: 09/03/21 19:42 Dose: 9 mg Documented by: Multi-Ingred Cream/Lotion/Oil/Oint (Mineral Oil/Petrolatum,White 106 Gm Tube) 1 appl TOPICAL BID [facility]; Protocol Last Admin: 09/04/21 10:02 Dose: Not Given Documented by: Multivitamins/Vitamin C (Multivitamin Tablet) 1 tab PO DAILY [facility] Last Admin: 09/04/21 09:57 Dose: 1 tab Documented by: Nicotine Polacrilex (Nicotine Polacrilex 2 Mg Gum) 4 mg BUCCAL Q1H PRN PRN Reason: Nicotine Cravings Last Admin: 09/04/21 13:21 Dose: 4 mg Documented by: Psyllium Hydrophilic Mucilloid (Psyllium Seed 3.4 Gm Powd.Pack) 3.4 gm PO DAILY [facility] Last Admin: 09/04/21 10:34 Dose: Not Given Documented by: Quetiapine Fumarate (Quetiapine Fumarate 100 Mg Tablet) 100 mg PO Q6H PRN PRN Reason: anxiety/restlessness Last Admin: 09/04/21 15:15 Dose: 100 mg Documented by: Quetiapine Fumarate (Quetiapine Fumarate 300 Mg Tablet) 300 mg PO BEDTIME [facility] Last Admin: 09/03/21 19:42 Dose: 300 mg Documented by: Quetiapine Fumarate (Quetiapine Fumarate 100 Mg Tablet) 250 mg PO DAILY [facility] Last Admin: 09/04/21 09:57 Dose: 250 mg Documented by: Ropinirole HCl (Ropinirole Hcl 1 Mg Tablet) 2 mg PO 1900 [facility] Last Admin: 09/03/21 19:56 Dose: 2 mg Documented by: Ropinirole HCl (Ropinirole Hcl 0.5 Mg Tablet) 0.5 mg PO 0800 [facility] Last Admin: 09/04/21 08:29 Dose: 0.5 mg Documented by: Senna/Docusate Sodium (Sennosides/Docusate Sodium Tablet) 1 tab PO BID [facility] Last Admin: 09/04/21 09:57 Dose: 1 tab Documented by: Simethicone (Simethicone 80 Mg Tab.Chew) 80 mg PO QIDWMHS PRN PRN Reason: indigestion Trolamine Salicylate/Aloe Vera (Trolamine Salicylate 10%/Aloe Cream 35.4 Gm) 1 appl TOPICAL TID PRN PRN Reason: sciatica Last Admin: 09/03/21 05:27 Dose: 1 appl Documented by: Valacyclovir HCl (Valacycyclovir Hcl 500 Mg Tablet) 500 mg PO BID [facility] Stop: 09/08/21 21:00 Last Admin: 09/04/21 09:57 Dose: 500 mg Documented by: Ziprasidone (Ziprasidone 20 Mg Capsule) 20 mg PO BID PRN PRN Reason: psychosis Allergies Allergies Allergy/AdvReac Type Severity Reaction Status Date / Time aripiprazole [From Abilify] Allergy Unknown Involuntary Verified 08/19/21 07:20 Spasms chlorpromazine Allergy Unknown Nausea and Verified 08/19/21 07:20 [From Thorazine] Vomiting haloperidol [From Haldol] Allergy Unknown Involuntary Verified 08/19/21 07:20 Spasms olanzapine [From Zyprexa] Allergy Unknown Involuntary Verified 08/19/21 07:20 Spasms paliperidone [From Invega] Allergy Unknown Hallucinati Verified 08/19/21 07:20 ons risperidone Allergy Unknown Involuntary Verified 08/19/21 07:20 Spasms Assessment & Plan Assessment & Plan (1) Schizoaffective disorder, bipolar type: Status: Acute Code(s): F25.0 - Schizoaffective disorder, bipolar type Assessment and Plan: Pt is a 55 y.o. Female who carries a diagnosis of schizoaffective disorder, bipolar type. [place] [facility] [place] [facility] ED due to disorganized behavior, paranoid thought content, and racing thoughts. In the ED, pt was prescribed gabapentin 300 mg, ativan 1 mg, seroquel 200 mg. However, she intermittently refused seroquel due to reported akathesia, stating ?it will make me flop like a fish all night.? Plan: Pt was hypertensive, given clonidine 0.1 mg QHS due to BP of 169/84, 173/85mmHg. Pt willing to take seroquel 50 mg BID with requip 0.5 mg BID to treat akathesia. Will trial vraylar 1.5 mg to target manic and psychotic sx, as pt reports being unable to tolerate multiple typical and atypical agents. She is also unwilling to take any mood stabilizer that requires lab monitoring. Will continue gabapentin 300 mg BID for anxiety, as well as to help with sciatica. PLAN 1. Discontinued Vraylar 08/24 at pt request 2. Started depakote 500mg po BID, clonazepam 1mg po BID. DCed VPA 08/24 at pt request as she agreed to start lithium. refusing to take more than 150 mg BID of lithium. 3. Aftercare planning 08/26/21 Augmentin 125 mg bid for tooth loss Continue current regime. Pt declines other changes at this time. 08/27/21 Increase Gabapentin to 600 mg tid Ibuprofen prn Hemorrhoid suppository prn PT reports pt is not in need of a walker. 08/28 declines mood stabilizer, reports allergies to most antipsychotic but received geodon few days ago without signs of side effects or allergy. alabile, intrusive disorganized 08/31/21: Increase Gabapentin to 800 mg tid. Discussed with pt titrating Seroquel to improve clarity-she will consider. 09/02/21: Increase Seroquel to 100 mg a.m. and 250 mg p.m. Increase Requip to 2 mg hs and 0.5 mg a.m 09/03/21: Increase Seroquel to 250 mg a.m. 300 mg HS Geodon 20 mg bid prn psychotic agitation Decrease [place] to 300 mg bid (OP team would like pt to be off of this). Depakote ER 500 mg HS 09/04/21: Patient remains manic; difficult to tell if there is any improvement Continue current treatment plan I spent minutes with the patient and/or on the patient floor today, greater than?50% of which was spent counseling/coordinating care. Reason for contiued inpatient stay Substantial Risk for: inability to function and rapid decompensation
[2021-09-04 17:49] VITALS: BP 115/71; PULSE 98
[2021-09-04] MEDS: Magnesium Citrate 300 ML SOLUTION PO (20:02)
[2021-09-04] MEDS: QUEtiapine Fumarate 300 MG TABLET PO (20:05)
[2021-09-04] MEDS: cloNIDine HCL 0.1 MG TABLET PO (20:05)
[2021-09-04] MEDS: lamoTRIgine 25 MG TABLET PO (20:05)
[2021-09-04] MEDS: Melatonin 3 MG TABLET 9 MG PO (20:06)
[2021-09-04] MEDS: rOPINIRole HCL 1 MG TABLET 2 MG PO (20:44)
[2021-09-04] MEDS: Artificial Tears 15 ML DROPS 2 DROP EYE-BOTH (20:44)
[2021-09-04] MEDS: Divalproex Sodium ER 500 MG TAB.ER.24H PO (20:51)
[2021-09-04 21:18] VITALS: BP 138/84; PULSE 90; RESP 16; TEMP 36.3; O2SAT 98
[2021-09-05] MEDS: LORazepam 0.5 MG TABLET PO ×2 (03:46→18:54)
[2021-09-05] MEDS: rOPINIRole HCL 0.5 MG TABLET PO (08:23)
[2021-09-05] MEDS: Ibuprofen 800 MG TABLET PO (08:23)
[2021-09-05] MEDS: Gabapentin 400 MG CAPSULE 800 MG PO ×3 (08:23→22:14)
[2021-09-05] MEDS: Nicotine Polacrilex 2 MG GUM 4 MG BUCCAL ×4 (08:23→19:22)
[2021-09-05] MEDS: QUEtiapine Fumarate 100 MG TABLET 250 MG PO (10:22)
[2021-09-05] MEDS: Sennosides/Docusate Sodium TABLET 1 TAB PO ×2 (10:22→22:13)
[2021-09-05] MEDS: Multivitamin TABLET 1 TAB PO (10:22)
[2021-09-05] MEDS: Cyanocobalamin (Vitamin B-12) 100 MCG TABLET PO (10:23)
[2021-09-05] MEDS: Magnesium Citrate 300 ML SOLUTION PO (15:26)
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
[2021-09-05] MEDS: Artificial Tears 15 ML DROPS 1 DROP EYE-BOTH (19:21)
[2021-09-05] MEDS: rOPINIRole HCL 1 MG TABLET 2 MG PO (19:22)
[2021-09-05 19:30] VITALS: BP 133/86; PULSE 96; TEMP 36; O2SAT 96
[2021-09-05] MEDS: Melatonin 3 MG TABLET 9 MG PO (22:14)
[2021-09-05] MEDS: Lithium Carbonate 300 MG TABLET PO (22:14)
[2021-09-05] MEDS: QUEtiapine Fumarate 300 MG TABLET PO (22:14)
[2021-09-05] MEDS: lamoTRIgine 25 MG TABLET PO (22:15)
[2021-09-05] MEDS: cloNIDine HCL 0.1 MG TABLET PO (22:15)
[2021-09-06] MEDS: QUEtiapine Fumarate 100 MG TABLET PO (04:55)
[2021-09-06] MEDS: Nicotine Polacrilex 2 MG GUM 4 MG BUCCAL ×4 (04:55→20:06)
[2021-09-06 06:00] VITALS: BP 125/70; PULSE 82; RESP 18; TEMP 36.6; O2SAT 98
[2021-09-06] MEDS: Cyanocobalamin (Vitamin B-12) 100 MCG TABLET PO (09:04)
[2021-09-06] MEDS: Gabapentin 400 MG CAPSULE 800 MG PO ×3 (09:04→21:21)
[2021-09-06] MEDS: Sennosides/Docusate Sodium TABLET 1 TAB PO ×2 (09:05→21:21)
[2021-09-06] MEDS: Multivitamin TABLET 1 TAB PO (09:05)
[2021-09-06] MEDS: rOPINIRole HCL 0.5 MG TABLET PO (09:05)
[2021-09-06] MEDS: Lithium Carbonate 300 MG TABLET PO ×2 (09:06→21:22)
[2021-09-06] MEDS: QUEtiapine Fumarate 100 MG TABLET 250 MG PO (09:12)
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
[2021-09-06] MEDS: Lidocaine 4 % Patch ADH..PATCH 1 PATCH TRANSDERMA ×2 (11:17)
[2021-09-06] MEDS: Mineral Oil/Petrolatum,White 106 GM Tube 1 APPL TOPICAL (11:18)
[2021-09-06] MEDS: Aspirin Enteric Coated 325 MG TABLET.DR 650 MG PO (12:18)
[2021-09-06] MEDS: Ibuprofen 800 MG TABLET PO (12:19)
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
[2021-09-06] MEDS: rOPINIRole HCL 1 MG TABLET 2 MG PO (20:06)
[2021-09-06 20:45] VITALS: BP 140/95; PULSE 86; TEMP 36.4; O2SAT 98
[2021-09-06] MEDS: cloNIDine HCL 0.1 MG TABLET PO (21:21)
[2021-09-06] MEDS: QUEtiapine Fumarate 300 MG TABLET PO (21:21)
[2021-09-06] MEDS: lamoTRIgine 25 MG TABLET 50 MG PO (21:22)
[2021-09-06] MEDS: Melatonin 3 MG TABLET 9 MG PO (21:22)
[2021-09-07] MEDS: QUEtiapine Fumarate 100 MG TABLET 250 MG PO (08:14)
[2021-09-07] MEDS: Multivitamin TABLET 1 TAB PO (08:17)
[2021-09-07] MEDS: Cyanocobalamin (Vitamin B-12) 100 MCG TABLET PO (08:17)
[2021-09-07] MEDS: Lithium Carbonate 300 MG TABLET PO ×2 (08:17→21:10)
[2021-09-07] MEDS: Gabapentin 400 MG CAPSULE 800 MG PO ×3 (08:17→21:10)
[2021-09-07] MEDS: rOPINIRole HCL 0.5 MG TABLET PO (08:17)
[2021-09-07] MEDS: Sennosides/Docusate Sodium TABLET 1 TAB PO ×2 (08:17→21:10)
[2021-09-07] MEDS: Cariprazine HCl 1.5 MG CAPSULE PO (08:17)
[2021-09-07] MEDS: Nicotine Polacrilex 2 MG GUM 4 MG BUCCAL ×4 (08:17→21:34)
[2021-09-07] MEDS: QUEtiapine Fumarate 100 MG TABLET PO (13:19)
[2021-09-07] MEDS: LORazepam 0.5 MG TABLET PO (13:19)
[2021-09-07 18:00] VITALS: BP 150/105; PULSE 91; TEMP 36.8; O2SAT 98
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
[2021-09-07] MEDS: rOPINIRole HCL 1 MG TABLET 2 MG PO (19:06)
[2021-09-07] MEDS: QUEtiapine Fumarate 300 MG TABLET PO (21:09)
[2021-09-07] MEDS: lamoTRIgine 25 MG TABLET 50 MG PO (21:10)
[2021-09-07] MEDS: Melatonin 3 MG TABLET 9 MG PO (21:11)
[2021-09-07] MEDS: cloNIDine HCL 0.1 MG TABLET PO (21:12)
[2021-09-07] MEDS: Magnesium Citrate 300 ML SOLUTION PO (21:13)
[2021-09-07 22:56] VITALS: BP 145/95; PULSE 88
[2021-09-08] MEDS: QUEtiapine Fumarate 100 MG TABLET PO ×2 (03:16→19:23)
[2021-09-08] MEDS: LORazepam 0.5 MG TABLET PO ×2 (03:17→20:20)
[2021-09-08] MEDS: Nicotine Polacrilex 2 MG GUM 4 MG BUCCAL ×4 (03:19→20:39)
[2021-09-08] MEDS: QUEtiapine Fumarate 100 MG TABLET 250 MG PO (08:34)
[2021-09-08] MEDS: Sennosides/Docusate Sodium TABLET 1 TAB PO ×2 (08:34→21:57)
[2021-09-08] MEDS: Lithium Carbonate 300 MG TABLET PO ×2 (08:34→21:57)
[2021-09-08] MEDS: Gabapentin 400 MG CAPSULE 800 MG PO ×3 (08:34→21:57)
[2021-09-08] MEDS: rOPINIRole HCL 0.5 MG TABLET PO (08:34)
[2021-09-08] MEDS: Multivitamin TABLET 1 TAB PO (08:35)
[2021-09-08] MEDS: Cariprazine HCl 1.5 MG CAPSULE PO (08:35)
[2021-09-08] MEDS: Cyanocobalamin (Vitamin B-12) 100 MCG TABLET PO (08:35)
[2021-09-08] MEDS: Artificial Tears 15 ML DROPS 2 DROP EYE-BOTH (17:35)
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
[2021-09-08] MEDS: rOPINIRole HCL 1 MG TABLET 2 MG PO (20:20)
[2021-09-08] MEDS: Melatonin 3 MG TABLET 9 MG PO (21:57)
[2021-09-08] MEDS: lamoTRIgine 25 MG TABLET 50 MG PO (21:57)
[2021-09-08] MEDS: cloNIDine HCL 0.1 MG TABLET PO (21:57)
[2021-09-08] MEDS: QUEtiapine Fumarate 300 MG TABLET PO (21:57)
[2021-09-08 22:00] VITALS: BP 119/71; PULSE 86; TEMP 36.2; O2SAT 100
[2021-09-09] MEDS: QUEtiapine Fumarate 100 MG TABLET 250 MG PO (08:14)
[2021-09-09] MEDS: Lithium Carbonate 300 MG TABLET PO ×2 (08:14→21:32)
[2021-09-09] MEDS: Nicotine Polacrilex 2 MG GUM 4 MG BUCCAL ×3 (08:15→19:10)
[2021-09-09] MEDS: rOPINIRole HCL 0.5 MG TABLET PO (08:15)
[2021-09-09] MEDS: Multivitamin TABLET 1 TAB PO (08:15)
[2021-09-09] MEDS: Cariprazine HCl 1.5 MG CAPSULE PO (08:15)
[2021-09-09] MEDS: Gabapentin 400 MG CAPSULE 800 MG PO ×3 (08:15→21:32)
[2021-09-09] MEDS: Sennosides/Docusate Sodium TABLET 1 TAB PO ×2 (08:15→21:32)
[2021-09-09] MEDS: Cyanocobalamin (Vitamin B-12) 100 MCG TABLET PO (08:15)
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
[2021-09-09 18:00] VITALS: BP 152/67; PULSE 85; TEMP 36.6
[2021-09-09] MEDS: rOPINIRole HCL 1 MG TABLET 2 MG PO (19:08)
[2021-09-09] MEDS: Artificial Tears 15 ML DROPS 2 DROP EYE-BOTH (19:09)
[2021-09-09] MEDS: QUEtiapine Fumarate 400 MG TABLET PO (21:32)
[2021-09-09] MEDS: Melatonin 3 MG TABLET 9 MG PO (21:32)
[2021-09-09] MEDS: cloNIDine HCL 0.1 MG TABLET PO (21:32)
[2021-09-09] MEDS: Acetaminophen 325 MG TABLET 650 MG PO (23:03)
[2021-09-10] MEDS: LORazepam 1 MG TABLET PO ×2 (00:25→19:52)
[2021-09-10] MEDS: Ibuprofen 800 MG TABLET PO ×2 (00:25→18:23)
[2021-09-10] MEDS: QUEtiapine Fumarate 200 MG TABLET PO (05:43)
[2021-09-10] MEDS: Nicotine Polacrilex 2 MG GUM 4 MG BUCCAL ×3 (05:46→22:34)
[2021-09-10] MEDS: Sennosides/Docusate Sodium TABLET 1 TAB PO ×2 (08:30→22:34)
[2021-09-10] MEDS: Mineral Oil/Petrolatum,White 106 GM Tube 1 APPL TOPICAL ×2 (08:30→22:36)
[2021-09-10] MEDS: rOPINIRole HCL 0.5 MG TABLET PO (08:30)
[2021-09-10] MEDS: Cariprazine HCl 1.5 MG CAPSULE PO (08:30)
[2021-09-10] MEDS: Lithium Carbonate 300 MG TABLET PO ×2 (08:30→22:35)
[2021-09-10] MEDS: Multivitamin TABLET 1 TAB PO (08:30)
[2021-09-10] MEDS: QUEtiapine Fumarate 100 MG TABLET 250 MG PO (08:31)
[2021-09-10] MEDS: Cyanocobalamin (Vitamin B-12) 100 MCG TABLET PO (08:31)
[2021-09-10] MEDS: Gabapentin 400 MG CAPSULE 800 MG PO ×3 (08:32→22:35)
[2021-09-10] MEDS: Nicotine 14 MG PATCH.TD24 TRANSDERMA (13:54)
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
[2021-09-10 18:00] VITALS: BP 109/54; PULSE 82
[2021-09-10] MEDS: rOPINIRole HCL 1 MG TABLET 2 MG PO (19:52)
[2021-09-10 22:18] VITALS: BP 137/80; PULSE 93
[2021-09-10] MEDS: Melatonin 3 MG TABLET 9 MG PO (22:34)
[2021-09-10] MEDS: cloNIDine HCL 0.1 MG TABLET PO (22:34)
[2021-09-10] MEDS: QUEtiapine Fumarate 400 MG TABLET PO (22:34)
[2021-09-11 06:00] VITALS: BP 133/91; PULSE 70; RESP 16; TEMP 36.1; O2SAT 100
[2021-09-11] MEDS: Ibuprofen 800 MG TABLET PO ×2 (07:14→21:34)
[2021-09-11] MEDS: Nicotine Polacrilex 2 MG GUM 4 MG BUCCAL ×5 (07:15→20:28)
[2021-09-11] MEDS: amLODIPine Besylate 2.5 MG TABLET PO (09:34)
[2021-09-11] MEDS: Nicotine 14 MG PATCH.TD24 TRANSDERMA (09:35)
[2021-09-11] MEDS: Lithium Carbonate 300 MG TABLET PO ×2 (09:35→21:26)
[2021-09-11] MEDS: Gabapentin 400 MG CAPSULE 800 MG PO ×3 (09:35→21:25)
[2021-09-11] MEDS: Cariprazine HCl 1.5 MG CAPSULE PO (09:35)
[2021-09-11] MEDS: QUEtiapine Fumarate 100 MG TABLET 250 MG PO (09:36)
[2021-09-11] MEDS: Sennosides/Docusate Sodium TABLET 1 TAB PO ×2 (09:36→21:25)
[2021-09-11] MEDS: Cyanocobalamin (Vitamin B-12) 100 MCG TABLET PO (09:36)
[2021-09-11] MEDS: rOPINIRole HCL 0.5 MG TABLET PO (09:36)
[2021-09-11] MEDS: Multivitamin TABLET 1 TAB PO (09:36)
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
[2021-09-11] MEDS: QUEtiapine Fumarate 200 MG TABLET PO (18:21)
[2021-09-11] MEDS: rOPINIRole HCL 1 MG TABLET 2 MG PO (19:20)
[2021-09-11 21:25] VITALS: BP 118/77; PULSE 84; TEMP 37.2
[2021-09-11] MEDS: cloNIDine HCL 0.1 MG TABLET PO (21:25)
[2021-09-11] MEDS: QUEtiapine Fumarate 400 MG TABLET PO (21:25)
[2021-09-11] MEDS: Melatonin 3 MG TABLET 9 MG PO (21:25)
[2021-09-11] MEDS: Magnesium Citrate 300 ML SOLUTION PO (21:34)
[2021-09-12] MEDS: LORazepam 1 MG TABLET PO (00:55)
[2021-09-12] MEDS: Nicotine Polacrilex 2 MG GUM 4 MG BUCCAL ×5 (01:13→21:27)
[2021-09-12] MEDS: Nicotine 14 MG PATCH.TD24 TRANSDERMA (09:38)
[2021-09-12] MEDS: rOPINIRole HCL 0.5 MG TABLET PO (09:44)
[2021-09-12 09:50] VITALS: BP 122/89; PULSE 81; RESP 20; TEMP 36.7; O2SAT 97
[2021-09-12] MEDS: amLODIPine Besylate 2.5 MG TABLET PO (09:56)
[2021-09-12] MEDS: Sennosides/Docusate Sodium TABLET 1 TAB PO ×2 (09:57→21:17)
[2021-09-12] MEDS: Gabapentin 400 MG CAPSULE 800 MG PO ×3 (09:57→21:17)
[2021-09-12] MEDS: Lithium Carbonate 300 MG TABLET PO ×2 (09:57→21:17)
[2021-09-12] MEDS: Cyanocobalamin (Vitamin B-12) 100 MCG TABLET PO (09:58)
[2021-09-12] MEDS: Cariprazine HCl 1.5 MG CAPSULE PO (09:58)
[2021-09-12] MEDS: Multivitamin TABLET 1 TAB PO (09:58)
[2021-09-12] MEDS: QUEtiapine Fumarate 100 MG TABLET 250 MG PO (09:59)
[2021-09-12] MEDS: Ibuprofen 800 MG TABLET PO ×2 (10:05→18:04)
[2021-09-12] MEDS: Acetaminophen 325 MG TABLET 650 MG PO (17:32)
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
[2021-09-12] MEDS: rOPINIRole HCL 1 MG TABLET 2 MG PO (19:27)
[2021-09-12 21:15] VITALS: BP 117/62; PULSE 84; TEMP 36.3
[2021-09-12] MEDS: cloNIDine HCL 0.1 MG TABLET PO (21:15)
[2021-09-12] MEDS: QUEtiapine Fumarate 400 MG TABLET PO (21:15)
[2021-09-12] MEDS: Melatonin 3 MG TABLET 9 MG PO (21:16)
[2021-09-13] MEDS: LORazepam 1 MG TABLET PO (02:15)
[2021-09-13 06:00] VITALS: BP 123/82; PULSE 78; RESP 16
[2021-09-13] MEDS: amLODIPine Besylate 2.5 MG TABLET PO (09:06)
[2021-09-13] MEDS: Lithium Carbonate 300 MG TABLET PO ×2 (09:06→21:00)
[2021-09-13] MEDS: Multivitamin TABLET 1 TAB PO (09:07)
[2021-09-13] MEDS: Sennosides/Docusate Sodium TABLET 1 TAB PO ×2 (09:07→21:00)
[2021-09-13] MEDS: Cariprazine HCl 1.5 MG CAPSULE PO (09:07)
[2021-09-13] MEDS: Gabapentin 400 MG CAPSULE 800 MG PO ×3 (09:08→21:00)
[2021-09-13] MEDS: Cyanocobalamin (Vitamin B-12) 100 MCG TABLET PO (09:08)
[2021-09-13] MEDS: Ibuprofen 800 MG TABLET PO (09:08)
[2021-09-13] MEDS: Nicotine 14 MG PATCH.TD24 TRANSDERMA (09:08)
[2021-09-13] MEDS: rOPINIRole HCL 0.5 MG TABLET PO (09:08)
[2021-09-13] MEDS: Nicotine Polacrilex 2 MG GUM 4 MG BUCCAL ×3 (09:10→20:59)
[2021-09-13] MEDS: Acetaminophen 325 MG TABLET 650 MG PO (15:07)
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
[2021-09-13 18:30] VITALS: BP 127/76; PULSE 87; TEMP 36.7; O2SAT 96
[2021-09-13] MEDS: rOPINIRole HCL 1 MG TABLET 2 MG PO (19:41)
[2021-09-13] MEDS: cloNIDine HCL 0.1 MG TABLET PO (20:59)
[2021-09-13 21:00] VITALS: BP 136/80; PULSE 80
[2021-09-13] MEDS: Melatonin 3 MG TABLET 9 MG PO (21:00)
[2021-09-13] MEDS: QUEtiapine Fumarate 300 MG TABLET 600 MG PO (21:01)
[2021-09-13] MEDS: Magnesium Citrate 300 ML SOLUTION PO (21:02)
[2021-09-13] MEDS: Cocoa Butter/Zinc Oxide SUPP.RECT 1 SUPP PR (21:15)
[2021-09-14] MEDS: LORazepam 1 MG TABLET PO (03:09)
[2021-09-14 06:00] VITALS: BP 107/55; PULSE 77; TEMP 36.1; O2SAT 96
[2021-09-14] MEDS: Cyanocobalamin (Vitamin B-12) 100 MCG TABLET PO (08:32)
[2021-09-14] MEDS: Nicotine 14 MG PATCH.TD24 TRANSDERMA (08:32)
[2021-09-14] MEDS: QUEtiapine Fumarate 100 MG TABLET PO (08:33)
[2021-09-14] MEDS: Gabapentin 400 MG CAPSULE 800 MG PO ×3 (08:33→19:52)
[2021-09-14] MEDS: rOPINIRole HCL 0.5 MG TABLET PO (08:33)
[2021-09-14] MEDS: Lithium Carbonate 300 MG TABLET PO ×2 (08:33→19:52)
[2021-09-14] MEDS: amLODIPine Besylate 2.5 MG TABLET PO (08:33)
[2021-09-14] MEDS: Cariprazine HCl 1.5 MG CAPSULE PO (08:33)
[2021-09-14] MEDS: Sennosides/Docusate Sodium TABLET 1 TAB PO ×2 (08:33→19:53)
[2021-09-14] MEDS: Mineral Oil/Petrolatum,White 106 GM Tube 1 APPL TOPICAL (08:52)
[2021-09-14] MEDS: Multivitamin TABLET 1 TAB PO (08:53)
[2021-09-14] MEDS: Nicotine Polacrilex 2 MG GUM 4 MG BUCCAL ×3 (08:53→18:51)
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
[2021-09-14 18:00] VITALS: BP 105/64; PULSE 80; TEMP 36.6; O2SAT 96
[2021-09-14] MEDS: Melatonin 3 MG TABLET 9 MG PO (19:53)
[2021-09-14] MEDS: cloNIDine HCL 0.1 MG TABLET PO (19:53)
[2021-09-14] MEDS: QUEtiapine Fumarate 300 MG TABLET 600 MG PO (19:53)
[2021-09-14 19:55] VITALS: BP 123/85; PULSE 88; TEMP 36.3; O2SAT 97
[2021-09-14] MEDS: rOPINIRole HCL 1 MG TABLET 2 MG PO (20:20)
[2021-09-15] MEDS: LORazepam 1 MG TABLET PO (04:15)
[2021-09-15 06:00] VITALS: BP 124/85; PULSE 78; TEMP 36.3; O2SAT 97
[2021-09-15] MEDS: Nicotine Polacrilex 2 MG GUM 4 MG BUCCAL ×4 (08:45→22:48)
[2021-09-15] MEDS: Sennosides/Docusate Sodium TABLET 1 TAB PO ×2 (09:43→22:43)
[2021-09-15] MEDS: QUEtiapine Fumarate 100 MG TABLET PO (09:43)
[2021-09-15] MEDS: Lithium Carbonate 300 MG TABLET PO ×2 (09:43→22:41)
[2021-09-15] MEDS: amLODIPine Besylate 2.5 MG TABLET PO (09:43)
[2021-09-15] MEDS: rOPINIRole HCL 0.5 MG TABLET PO (09:43)
[2021-09-15] MEDS: Cyanocobalamin (Vitamin B-12) 100 MCG TABLET PO (09:43)
[2021-09-15] MEDS: Multivitamin TABLET 1 TAB PO (09:43)
[2021-09-15] MEDS: Gabapentin 400 MG CAPSULE 800 MG PO ×3 (09:44→22:40)
[2021-09-15] MEDS: Nicotine 14 MG PATCH.TD24 TRANSDERMA (09:44)
[2021-09-15] MEDS: Mineral Oil/Petrolatum,White 106 GM Tube 1 APPL TOPICAL (09:50)
[2021-09-15] MEDS: Ibuprofen 800 MG TABLET PO ×2 (10:56→18:59)
[2021-09-15] MEDS: Acetaminophen 325 MG TABLET 650 MG PO (12:37)
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
[2021-09-15 18:00] VITALS: BP 129/79; PULSE 81; RESP 18; TEMP 36.4; O2SAT 98
[2021-09-15] MEDS: Melatonin 3 MG TABLET 9 MG PO (22:37)
[2021-09-15] MEDS: QUEtiapine Fumarate 300 MG TABLET 600 MG PO (22:37)
[2021-09-15] MEDS: hydrOXYzine HCL 25 MG TABLET PO (22:40)
[2021-09-15] MEDS: cloNIDine HCL 0.1 MG TABLET PO (22:42)
[2021-09-15] MEDS: Magnesium Citrate 300 ML SOLUTION PO (22:49)
[2021-09-15] MEDS: rOPINIRole HCL 1 MG TABLET 2 MG PO (23:13)
[2021-09-16] MEDS: LORazepam 1 MG TABLET PO (04:34)
[2021-09-16] MEDS: Nicotine Polacrilex 2 MG GUM 4 MG BUCCAL ×2 (04:48→08:55)
[2021-09-16 04:52] VITALS: BP 118/71; PULSE 77; TEMP 35.9; O2SAT 97
[2021-09-16 08:45] VITALS: BP 115/56; PULSE 78
[2021-09-16] MEDS: amLODIPine Besylate 2.5 MG TABLET PO (08:54)
[2021-09-16] MEDS: Lithium Carbonate 300 MG TABLET PO ×2 (08:55→20:00)
[2021-09-16] MEDS: Sennosides/Docusate Sodium TABLET 1 TAB PO ×2 (08:55→20:00)
[2021-09-16] MEDS: Ibuprofen 800 MG TABLET PO (08:55)
[2021-09-16] MEDS: Cyanocobalamin (Vitamin B-12) 100 MCG TABLET PO (08:56)
[2021-09-16] MEDS: Gabapentin 400 MG CAPSULE 800 MG PO ×3 (08:56→20:00)
[2021-09-16] MEDS: rOPINIRole HCL 0.5 MG TABLET PO (08:56)
[2021-09-16] MEDS: Nicotine 14 MG PATCH.TD24 TRANSDERMA (08:56)
[2021-09-16] MEDS: QUEtiapine Fumarate 100 MG TABLET PO (08:56)
[2021-09-16] MEDS: Multivitamin TABLET 1 TAB PO (08:56)
[2021-09-16] MEDS: Acetaminophen 325 MG TABLET 650 MG PO (14:54)
[2021-09-16 18:00] VITALS: BP 151/86; PULSE 89
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
[2021-09-16] MEDS: rOPINIRole HCL 1 MG TABLET 2 MG PO (19:59)
[2021-09-16] MEDS: Melatonin 3 MG TABLET 9 MG PO (20:00)
[2021-09-16] MEDS: QUEtiapine Fumarate 300 MG TABLET 600 MG PO (20:00)
[2021-09-16] MEDS: cloNIDine HCL 0.1 MG TABLET PO (20:00)
[2021-09-16] MEDS: hydrOXYzine HCL 25 MG TABLET PO (20:00)
[2021-09-17] MEDS: Nicotine Polacrilex 2 MG GUM 4 MG BUCCAL ×6 (05:32→23:13)
[2021-09-17] MEDS: QUEtiapine Fumarate 200 MG TABLET PO (05:33)
[2021-09-17] MEDS: Ibuprofen 800 MG TABLET PO ×2 (05:33→13:53)
[2021-09-17 05:36] VITALS: BP 130/86; PULSE 78; TEMP 36.8; O2SAT 98
[2021-09-17] MEDS: Sennosides/Docusate Sodium TABLET 1 TAB PO ×2 (09:01→20:55)
[2021-09-17] MEDS: Lithium Carbonate 300 MG TABLET PO ×2 (09:01→20:53)
[2021-09-17] MEDS: Cyanocobalamin (Vitamin B-12) 100 MCG TABLET PO (09:01)
[2021-09-17] MEDS: Multivitamin TABLET 1 TAB PO (09:01)
[2021-09-17] MEDS: Gabapentin 400 MG CAPSULE 800 MG PO ×3 (09:01→20:55)
[2021-09-17] MEDS: QUEtiapine Fumarate 100 MG TABLET PO (09:02)
[2021-09-17] MEDS: rOPINIRole HCL 0.5 MG TABLET PO (09:02)
[2021-09-17] MEDS: Acetaminophen 325 MG TABLET 650 MG PO ×2 (09:02→19:01)
[2021-09-17] MEDS: Nicotine 14 MG PATCH.TD24 TRANSDERMA (09:03)
[2021-09-17] MEDS: amLODIPine Besylate 2.5 MG TABLET PO (09:04)
[2021-09-17] MEDS: Artificial Tears 15 ML DROPS 2 DROP EYE-BOTH (13:53)
[2021-09-17] MEDS: Magnesium Citrate 300 ML SOLUTION PO (13:53)
--- NOTE | 2021-09-17 16:19 | HO.PSYCHPN ---
Subjective Subjective Date of Service: 09/17/21 Reason For Visit: Bipolar, Schizoaffective Interim History: Team reports pt continues to improve with less pressure, intrusive symptoms and less affective intensity, improved ability to modulate her emotions. Pt asking to change [facility] areas and reside in [facility]. Team is checking into this possibility. Pt able to complete L Hip Xray-moderate arthritis noted. Pt to decide on referral to ortho. Not interested in THR or options in this realm. Medication Compliance: Intermittent Side effects from medications: No Attending Groups: Intermittent Review of Systems Acute medical concerns: No Medical Review of Systems: unchanged Review of Systems Psychiatric: Reports mood swings Mental Status Exam Mental Status Exam Narrative: Patient Appearance:?unkempt Patient Appearance: Disheveled Patient Orientation: Person, Place, Time and Situation Level of Consciousness: Awake Patient Behavior: Cooperative Mood Description: Flat, Apprehensive and Expansive Affect Description: Labile, Flat and Expansive Speech Pattern: Rambling and Pressured Delusions: Paranoid Ideation and Grandiose Thought Process: Illogical Thought Content: positive for Preoccupation, negative for Suicidal Ideation or negative for Homicidal Ideation Judgement: Fair Diagnostics Vital Signs (24Hr): Vital Signs - 24 hr 09/16/21 18:00 09/17/21 05:36 Temperature 98.3 F Pulse Rate 89 78 Blood Pressure 151/86 H 130/86 Pulse Oximetry 98 BMI result Body Mass Index 32.8 Imaging Radiology Impressions: ITS Impressions Abdomen Ultrasound 09/01/21 08:59 IMPRESSION: Slightly echogenic liver. Limited evaluation of the gallbladder as the patient has recently eaten. No gallstone seen. Limited visualization of the pancreas. Hip X-Ray 09/16/21 14:47 IMPRESSION: Moderate to severe left hip arthritis. Medications Medications Current Medications Acetaminophen (Acetaminophen 325 Mg Tablet) 650 mg PO Q6H PRN PRN Reason: Headache/Pain Mild Scale (1-3) Last Admin: 09/17/21 09:02 Dose: 650 mg Documented by: Al Hydroxide/Mg Hydroxide (Magnesium Hydrox/Alum Hydrox 30 Ml Oral.Susp) 30 ml PO Q6H PRN PRN Reason: Heartburn/Nausea Last Admin: 08/22/21 05:54 Dose: 30 ml Documented by: Amlodipine Besylate (Amlodipine Besylate 2.5 Mg Tablet) 2.5 mg PO DAILY [facility]; Protocol Last Admin: 09/17/21 09:04 Dose: 2.5 mg Documented by: Artificial Tears (Artificial Tears 15 Ml Drops) 2 drop EYE-BOTH Q4H PRN PRN Reason: Dry Eyes Last Admin: 09/17/21 13:53 Dose: 2 drop Documented by: Aspirin (Aspirin Enteric Coated 325 Mg Tablet.) 650 mg PO DAILY PRN PRN Reason: headache Last Admin: 09/06/21 12:18 Dose: 650 mg Documented by: Benzocaine (Benzocaine 20 % Oral Gel 9 Gm Tube) 1 appl MUCOUS MEM QID PRN; Protocol PRN Reason: Mouth Sore Pain Last Admin: 08/31/21 03:05 Dose: 1 appl Documented by: Calcium Carbonate (Calcium Carbonate 500 Mg Tablet) 500 mg PO DAILY [facility] Last Admin: 09/17/21 09:01 Dose: 500 mg Documented by: Clonidine HCl (Clonidine Hcl 0.1 Mg Tablet) 0.1 mg PO BEDTIME [facility]; Protocol Last Admin: 09/16/21 20:00 Dose: 0.1 mg Documented by: [place] Butter/Zinc Oxide ([place] Butter/Zinc Oxide Supp.Rect) 1 supp [place] BID PRN PRN Reason: hemorrhoid pain [place] Butter/Zinc Oxide ([place] Butter/Zinc Oxide Supp.Rect) 1 supp [place] BEDTIME PRN PRN Reason: hemorrhoid pain Last Admin: 09/13/21 21:15 Dose: 1 supp Documented by: Cyanocobalamin (Cyanocobalamin (Vitamin B-12) 100 Mcg Tablet) 100 mcg PO DAILY [facility] Last Admin: 09/17/21 09:01 Dose: 100 mcg Documented by: Diphenhydramine HCl (Diphenhydramine Hcl 25 Mg Tablet) 50 mg PO Q6H PRN PRN Reason: eps Gabapentin (Gabapentin 400 Mg Capsule) 800 mg PO TID [facility] Last Admin: 09/17/21 14:40 Dose: 800 mg Documented by: Gabapentin (Gabapentin 100 Mg Capsule) 100 mg PO TID PRN PRN Reason: neuropathic pain Hydroxyzine HCl (Hydroxyzine Hcl 25 Mg Tablet) 25 mg PO BEDTIME PRN PRN Reason: Anxiety Last Admin: 08/29/21 06:21 Dose: 25 mg Documented by: Hydroxyzine HCl (Hydroxyzine Hcl 25 Mg Tablet) 25 mg PO BEDTIME [facility] Last Admin: 09/16/21 20:00 Dose: 25 mg Documented by: Ibuprofen (Ibuprofen 800 Mg Tablet) 800 mg PO Q8H PRN PRN Reason: Pain, Mild (Pain Scale 1-3) Last Admin: 09/17/21 13:53 Dose: 800 mg Documented by: Lidocaine (Lidocaine 4 % Patch Adh..Patch) 1 patch TRANSDERMA DAILY [facility]; Protocol Last Admin: 09/17/21 10:20 Dose: Not Given Documented by: Lidocaine (Lidocaine 4 % Patch Adh..Patch) 1 patch TRANSDERMA DAILY [facility]; Protocol Last Admin: 09/17/21 10:20 Dose: Not Given Documented by: [place] Carbonate ([place] Carbonate 300 Mg Tablet) 300 mg PO BID [facility] Last Admin: 09/17/21 09:01 Dose: 300 mg Documented by: Lorazepam (Lorazepam 1 Mg Tablet) 1 mg PO Q8H PRN PRN Reason: Anxiety Last Admin: 09/16/21 04:34 Dose: 1 mg Documented by: Magnesium Citrate (Magnesium Citrate 300 Ml Solution) 300 ml PO DAILY PRN PRN Reason: Constipation Last Admin: 09/17/21 13:53 Dose: 300 ml Documented by: Magnesium Hydroxide (Milk Of Magnesia 30 Ml Oral.Susp) 30 ml PO DAILY PRN PRN Reason: Constipation Last Admin: 08/31/21 20:05 Dose: 30 ml Documented by: Melatonin (Melatonin 3 Mg Tablet) 9 mg PO BEDTIME [facility] Last Admin: 09/16/21 20:00 Dose: 9 mg Documented by: Multi-Ingred Cream/Lotion/Oil/Oint (Mineral Oil/Petrolatum,White 106 Gm Tube) 1 appl TOPICAL BID [facility]; Protocol Last Admin: 09/17/21 10:21 Dose: Not Given Documented by: Multivitamins/Vitamin C (Multivitamin Tablet) 1 tab PO DAILY [facility] Last Admin: 09/17/21 09:01 Dose: 1 tab Documented by: Nicotine (Nicotine 14 Mg Patch.Td24) 14 mg TRANSDERMA DAILY [facility] Last Admin: 09/17/21 09:03 Dose: 14 mg Documented by: Nicotine Polacrilex (Nicotine Polacrilex 2 Mg Gum) 4 mg BUCCAL Q1H PRN PRN Reason: Nicotine Cravings Last Admin: 09/17/21 13:53 Dose: 4 mg Documented by: Psyllium Hydrophilic Mucilloid (Psyllium Seed 3.4 Gm Powd.Pack) 3.4 gm PO DAILY [facility] Last Admin: 09/17/21 09:03 Dose: 3.4 gm Documented by: Quetiapine Fumarate (Quetiapine Fumarate 200 Mg Tablet) 200 mg PO Q6H PRN PRN Reason: anxiety/restlessness Last Admin: 09/17/21 05:33 Dose: 200 mg Documented by: Quetiapine Fumarate (Quetiapine Fumarate 100 Mg Tablet) 100 mg PO DAILY [facility] Last Admin: 09/17/21 09:02 Dose: 100 mg Documented by: Quetiapine Fumarate (Quetiapine Fumarate 300 Mg Tablet) 600 mg PO BEDTIME [facility] Last Admin: 09/16/21 20:00 Dose: 600 mg Documented by: Ropinirole HCl (Ropinirole Hcl 1 Mg Tablet) 2 mg PO 1900 [facility] Last Admin: 09/16/21 19:59 Dose: 2 mg Documented by: Ropinirole HCl (Ropinirole Hcl 0.5 Mg Tablet) 0.5 mg PO 0800 [facility] Last Admin: 09/17/21 09:02 Dose: 0.5 mg Documented by: Senna/Docusate Sodium (Sennosides/Docusate Sodium Tablet) 1 tab PO BID [facility] Last Admin: 09/17/21 09:01 Dose: 1 tab Documented by: Simethicone (Simethicone 80 Mg Tab.Chew) 80 mg PO QIDWMHS PRN PRN Reason: indigestion Trolamine Salicylate/Aloe Vera (Trolamine Salicylate 10%/Aloe Cream 35.4 Gm) 1 appl TOPICAL TID PRN PRN Reason: sciatica Last Admin: 09/03/21 05:27 Dose: 1 appl Documented by: Ziprasidone (Ziprasidone 20 Mg Capsule) 20 mg PO BID PRN PRN Reason: psychosis Allergies Allergies Allergy/AdvReac Type Severity Reaction Status Date / Time aripiprazole [From Abilify] Allergy Unknown Involuntary Verified 08/19/21 07:20 Spasms chlorpromazine Allergy Unknown Nausea and Verified 08/19/21 07:20 [From Thorazine] Vomiting haloperidol [From Haldol] Allergy Unknown Involuntary Verified 08/19/21 07:20 Spasms olanzapine [From Zyprexa] Allergy Unknown Involuntary Verified 08/19/21 07:20 Spasms paliperidone [From Invega] Allergy Unknown Hallucinati Verified 08/19/21 07:20 ons risperidone Allergy Unknown Involuntary Verified 08/19/21 07:20 Spasms Assessment & Plan Assessment & Plan (1) Schizoaffective disorder, bipolar type: Status: Acute Code(s): F25.0 - Schizoaffective disorder, bipolar type Assessment and Plan: 09/17/21- Continue current plan Discharge planning. (2) Lumbar radiculopathy: Status: Acute Code(s): M54.16 - Radiculopathy, lumbar region (3) Hip pain, left: Status: Acute Code(s): M25.552 - Pain in left hip I spent 20 minutes with the patient and/or on the patient floor today, greater than?50% of which was spent counseling/coordinating care. Patient educated on: therapeutic strategies and medical condition Informed Consent: further education needed Reason for contiued inpatient stay Substantial Risk for: harm to self, harm to others, inability to function, rapid decompensation and med/psych decompensation
[2021-09-17] MEDS: rOPINIRole HCL 1 MG TABLET 2 MG PO (19:39)
[2021-09-17] MEDS: hydrOXYzine HCL 25 MG TABLET PO ×2 (20:54→20:58)
[2021-09-17] MEDS: cloNIDine HCL 0.1 MG TABLET PO (20:54)
[2021-09-17] MEDS: QUEtiapine Fumarate 300 MG TABLET 600 MG PO (20:54)
[2021-09-17] MEDS: Melatonin 3 MG TABLET 9 MG PO (20:55)
[2021-09-17] MEDS: Mineral Oil/Petrolatum,White 106 GM Tube 1 APPL TOPICAL (21:06)
[2021-09-17 21:12] VITALS: BP 135/85; PULSE 85; RESP 18; TEMP 36.6; O2SAT 98
[2021-09-18 06:00] VITALS: BP 124/64; PULSE 101; RESP 16; O2SAT 98
--- NOTE | 2021-09-18 08:02 | PC.NURSE ---
Yesterday, a staff member waked into Pt's room and saw what appeared to be pt masturbating in her room.
[2021-09-18] MEDS: Multivitamin TABLET 1 TAB PO (09:23)
[2021-09-18] MEDS: Sennosides/Docusate Sodium TABLET 1 TAB PO ×2 (09:24→22:35)
[2021-09-18] MEDS: Cyanocobalamin (Vitamin B-12) 100 MCG TABLET PO (09:24)
[2021-09-18] MEDS: QUEtiapine Fumarate 100 MG TABLET PO (09:24)
[2021-09-18] MEDS: amLODIPine Besylate 2.5 MG TABLET PO (09:24)
[2021-09-18] MEDS: rOPINIRole HCL 0.5 MG TABLET PO (09:24)
[2021-09-18] MEDS: Lithium Carbonate 300 MG TABLET PO ×2 (09:24→22:35)
[2021-09-18] MEDS: Gabapentin 400 MG CAPSULE 800 MG PO ×3 (09:24→22:36)
[2021-09-18] MEDS: Nicotine Polacrilex 2 MG GUM 4 MG BUCCAL ×4 (09:25→20:21)
[2021-09-18] MEDS: Nicotine 14 MG PATCH.TD24 TRANSDERMA (09:25)
[2021-09-18] MEDS: Acetaminophen 325 MG TABLET 650 MG PO (12:04)
[2021-09-18 18:00] VITALS: BP 123/78; PULSE 83; TEMP 36.6; O2SAT 97
[2021-09-18] MEDS: rOPINIRole HCL 1 MG TABLET 2 MG PO (20:23)
[2021-09-18] MEDS: QUEtiapine Fumarate 300 MG TABLET 600 MG PO (22:35)
[2021-09-18] MEDS: cloNIDine HCL 0.1 MG TABLET PO (22:35)
[2021-09-18] MEDS: Melatonin 3 MG TABLET 9 MG PO (22:36)
[2021-09-18] MEDS: hydrOXYzine HCL 25 MG TABLET PO (22:37)
[2021-09-18 22:40] VITALS: BP 136/74; PULSE 72
--- NOTE | 2021-09-18 23:42 | HO.PSYCHPN ---
Subjective Subjective Date of Service: 09/18/21 Reason For Visit: Bipolar, Schizoaffective Interim History: Patient seen. Patient complains of her hip hurting. She says she has arthritis. She was told she may have to replace her hip. She perseverates on this and says she doesn't want to replace her hip with a plastic hip because then it wouldn't be her anymore. She was somewhat paranoid. Wanted to see PT however patient is fully mobile. She has had no falls. She was walking steadily. improved ability to modulate her emotions. Pt to decide on referral to ortho. Review of Systems Review of Systems CVS: No c/o chest pain, palpitations, no SOB [employer]: No c/o dizziness, headache GI: No c/o Nausea, Vomiting, diarrhea, constipation or heartburn Yes all other systems are reviewed and are negative Gastrointestinal: Reports other (hemorrhoid pain) Musculoskeletal: Reports other (sciatica) Reports behavioral changes, Reports confusion and Reports memory loss Psychiatric: Reports abnormal sleep pattern, Reports anxiety, Reports behavioral changes, Reports change in appetite, Reports confusion, Reports depression, Reports difficulty concentrating, Reports auditory hallucinations, Reports hopelessness, Reports irritability, Reports anhedonia, Reports memory loss, Reports mood swings, Reports paranoia, Reports visual hallucinations, Reports hallucinations, Reports homicidal ideation (denies) and Reports suicidal ideation (denies) Mental Status Exam Mental Status Exam Narrative: Patient Appearance:?unkempt Patient Appearance: Disheveled Patient Orientation: Person, Place, Time and Situation Level of Consciousness: Awake Patient Behavior: Cooperative Mood Description: Flat, Apprehensive and Expansive Affect Description: Labile, Flat and Expansive Patient Cognition Impaired: No Ability to Follow Directions: Good Speech Pattern: Rambling and Pressured Memory Description: Intact Diagnostics Vital Signs (24Hr): Vital Signs - 24 hr 09/18/21 06:00 09/18/21 18:00 09/18/21 22:40 Temperature 97.8 F Pulse Rate 101 H 83 72 Respiratory Rate 16 Blood Pressure 124/64 123/78 136/74 Pulse Oximetry 98 97 BMI result Body Mass Index 32.8 Imaging Radiology Impressions: ITS Impressions Abdomen Ultrasound 09/01/21 08:59 IMPRESSION: Slightly echogenic liver. Limited evaluation of the gallbladder as the patient has recently eaten. No gallstone seen. Limited visualization of the pancreas. Hip X-Ray 09/16/21 14:47 IMPRESSION: Moderate to severe left hip arthritis. Medications Medications Current Medications Acetaminophen (Acetaminophen 325 Mg Tablet) 650 mg PO Q6H PRN PRN Reason: Headache/Pain Mild Scale (1-3) Last Admin: 09/18/21 12:04 Dose: 650 mg Documented by: Al Hydroxide/Mg Hydroxide (Magnesium Hydrox/Alum Hydrox 30 Ml Oral.Susp) 30 ml PO Q6H PRN PRN Reason: Heartburn/Nausea Last Admin: 08/22/21 05:54 Dose: 30 ml Documented by: Amlodipine Besylate (Amlodipine Besylate 2.5 Mg Tablet) 2.5 mg PO DAILY [facility]; Protocol Last Admin: 09/18/21 09:24 Dose: 2.5 mg Documented by: Artificial Tears (Artificial Tears 15 Ml Drops) 2 drop EYE-BOTH Q4H PRN PRN Reason: Dry Eyes Last Admin: 09/17/21 13:53 Dose: 2 drop Documented by: Aspirin (Aspirin Enteric Coated 325 Mg Tablet.) 650 mg PO DAILY PRN PRN Reason: headache Last Admin: 09/06/21 12:18 Dose: 650 mg Documented by: Benzocaine (Benzocaine 20 % Oral Gel 9 Gm Tube) 1 appl MUCOUS MEM QID PRN; Protocol PRN Reason: Mouth Sore Pain Last Admin: 08/31/21 03:05 Dose: 1 appl Documented by: Calcium Carbonate (Calcium Carbonate 500 Mg Tablet) 500 mg PO DAILY [facility] Last Admin: 09/18/21 09:24 Dose: 500 mg Documented by: Clonidine HCl (Clonidine Hcl 0.1 Mg Tablet) 0.1 mg PO BEDTIME [facility]; Protocol Last Admin: 09/18/21 22:35 Dose: 0.1 mg Documented by: [place] Butter/Zinc Oxide ([place] Butter/Zinc Oxide Supp.Rect) 1 supp [place] BID PRN PRN Reason: hemorrhoid pain [place] Butter/Zinc Oxide ([place] Butter/Zinc Oxide Supp.Rect) 1 supp [place] BEDTIME PRN PRN Reason: hemorrhoid pain Last Admin: 09/13/21 21:15 Dose: 1 supp Documented by: Cyanocobalamin (Cyanocobalamin (Vitamin B-12) 100 Mcg Tablet) 100 mcg PO DAILY [facility] Last Admin: 09/18/21 09:24 Dose: 100 mcg Documented by: Diphenhydramine HCl (Diphenhydramine Hcl 25 Mg Tablet) 50 mg PO Q6H PRN PRN Reason: eps Gabapentin (Gabapentin 400 Mg Capsule) 800 mg PO TID [facility] Last Admin: 09/18/21 22:36 Dose: 800 mg Documented by: Gabapentin (Gabapentin 100 Mg Capsule) 100 mg PO TID PRN PRN Reason: neuropathic pain Hydroxyzine HCl (Hydroxyzine Hcl 25 Mg Tablet) 25 mg PO BEDTIME PRN PRN Reason: Anxiety Last Admin: 09/17/21 20:54 Dose: 25 mg Documented by: Hydroxyzine HCl (Hydroxyzine Hcl 25 Mg Tablet) 25 mg PO BEDTIME [facility] Last Admin: 09/18/21 22:37 Dose: 25 mg Documented by: Ibuprofen (Ibuprofen 800 Mg Tablet) 800 mg PO Q8H PRN PRN Reason: Pain, Mild (Pain Scale 1-3) Last Admin: 09/17/21 13:53 Dose: 800 mg Documented by: Lidocaine (Lidocaine 4 % Patch Adh..Patch) 1 patch TRANSDERMA DAILY [facility]; Protocol Last Admin: 09/18/21 09:31 Dose: Not Given Documented by: Lidocaine (Lidocaine 4 % Patch Adh..Patch) 1 patch TRANSDERMA DAILY [facility]; Protocol Last Admin: 09/18/21 09:32 Dose: Not Given Documented by: [place] Carbonate ([place] Carbonate 300 Mg Tablet) 300 mg PO BID [facility] Last Admin: 09/18/21 22:35 Dose: 300 mg Documented by: Lorazepam (Lorazepam 1 Mg Tablet) 1 mg PO Q8H PRN PRN Reason: Anxiety Last Admin: 09/16/21 04:34 Dose: 1 mg Documented by: Magnesium Citrate (Magnesium Citrate 300 Ml Solution) 300 ml PO DAILY PRN PRN Reason: Constipation Last Admin: 09/17/21 13:53 Dose: 300 ml Documented by: Magnesium Hydroxide (Milk Of Magnesia 30 Ml Oral.Susp) 30 ml PO DAILY PRN PRN Reason: Constipation Last Admin: 08/31/21 20:05 Dose: 30 ml Documented by: Melatonin (Melatonin 3 Mg Tablet) 9 mg PO BEDTIME [facility] Last Admin: 09/18/21 22:36 Dose: 9 mg Documented by: Multi-Ingred Cream/Lotion/Oil/Oint (Mineral Oil/Petrolatum,White 106 Gm Tube) 1 appl TOPICAL BID [facility]; Protocol Last Admin: 09/18/21 22:50 Dose: Not Given Documented by: Multivitamins/Vitamin C (Multivitamin Tablet) 1 tab PO DAILY [facility] Last Admin: 09/18/21 09:23 Dose: 1 tab Documented by: Nicotine (Nicotine 14 Mg Patch.Td24) 14 mg TRANSDERMA DAILY [facility] Last Admin: 09/18/21 09:25 Dose: 14 mg Documented by: Nicotine Polacrilex (Nicotine Polacrilex 2 Mg Gum) 4 mg BUCCAL Q1H PRN PRN Reason: Nicotine Cravings Last Admin: 09/18/21 20:21 Dose: 4 mg Documented by: Psyllium Hydrophilic Mucilloid (Psyllium Seed 3.4 Gm Powd.Pack) 3.4 gm PO DAILY [facility] Last Admin: 09/18/21 09:26 Dose: 3.4 gm Documented by: Quetiapine Fumarate (Quetiapine Fumarate 200 Mg Tablet) 200 mg PO Q6H PRN PRN Reason: anxiety/restlessness Last Admin: 09/17/21 05:33 Dose: 200 mg Documented by: Quetiapine Fumarate (Quetiapine Fumarate 100 Mg Tablet) 100 mg PO DAILY [facility] Last Admin: 09/18/21 09:24 Dose: 100 mg Documented by: Quetiapine Fumarate (Quetiapine Fumarate 300 Mg Tablet) 600 mg PO BEDTIME [facility] Last Admin: 09/18/21 22:35 Dose: 600 mg Documented by: Ropinirole HCl (Ropinirole Hcl 1 Mg Tablet) 2 mg PO 1900 [facility] Last Admin: 09/18/21 20:23 Dose: 2 mg Documented by: Ropinirole HCl (Ropinirole Hcl 0.5 Mg Tablet) 0.5 mg PO 0800 [facility] Last Admin: 09/18/21 09:24 Dose: 0.5 mg Documented by: Senna/Docusate Sodium (Sennosides/Docusate Sodium Tablet) 1 tab PO BID [facility] Last Admin: 09/18/21 22:35 Dose: 1 tab Documented by: Simethicone (Simethicone 80 Mg Tab.Chew) 80 mg PO QIDWMHS PRN PRN Reason: indigestion Sodium Chloride (Sodium Chloride 0.65 % Nasal 44 Ml Sprbtl) 1 spray NOSTRIL-B Q1H PRN PRN Reason: congestion Trolamine Salicylate/Aloe Vera (Trolamine Salicylate 10%/Aloe Cream 35.4 Gm) 1 appl TOPICAL TID PRN PRN Reason: sciatica Last Admin: 09/03/21 05:27 Dose: 1 appl Documented by: Ziprasidone (Ziprasidone 20 Mg Capsule) 20 mg PO BID PRN PRN Reason: psychosis Allergies Allergies Allergy/AdvReac Type Severity Reaction Status Date / Time aripiprazole [From Abilify] Allergy Unknown Involuntary Verified 08/19/21 07:20 Spasms chlorpromazine Allergy Unknown Nausea and Verified 08/19/21 07:20 [From Thorazine] Vomiting haloperidol [From Haldol] Allergy Unknown Involuntary Verified 08/19/21 07:20 Spasms olanzapine [From Zyprexa] Allergy Unknown Involuntary Verified 08/19/21 07:20 Spasms paliperidone [From Invega] Allergy Unknown Hallucinati Verified 08/19/21 07:20 ons risperidone Allergy Unknown Involuntary Verified 08/19/21 07:20 Spasms Assessment & Plan Assessment & Plan (1) Schizoaffective disorder, bipolar type: Status: Acute Code(s): F25.0 - Schizoaffective disorder, bipolar type Assessment and Plan: 09/18/21- Continue current plan Discharge planning. (2) Lumbar radiculopathy: Status: Acute Code(s): M54.16 - Radiculopathy, lumbar region (3) Hip pain, left: Status: Acute Code(s): M25.552 - Pain in left hip I spent minutes with the patient and/or on the patient floor today, greater than?50% of which was spent counseling/coordinating care. Reason for contiued inpatient stay Substantial Risk for: inability to function and rapid decompensation
[2021-09-19 06:00] VITALS: PULSE 72; RESP 16; O2SAT 98
[2021-09-19] MEDS: Nicotine Polacrilex 2 MG GUM 4 MG BUCCAL ×3 (08:16→21:11)
[2021-09-19] MEDS: Nicotine 14 MG PATCH.TD24 TRANSDERMA (08:16)
[2021-09-19] MEDS: Lithium Carbonate 300 MG TABLET PO ×2 (08:17→21:03)
[2021-09-19] MEDS: QUEtiapine Fumarate 100 MG TABLET PO (08:17)
[2021-09-19] MEDS: Ibuprofen 800 MG TABLET PO ×2 (08:17→17:40)
[2021-09-19] MEDS: Cyanocobalamin (Vitamin B-12) 100 MCG TABLET PO (08:17)
[2021-09-19] MEDS: Multivitamin TABLET 1 TAB PO (08:17)
[2021-09-19] MEDS: Sennosides/Docusate Sodium TABLET 1 TAB PO ×2 (08:17→21:03)
[2021-09-19] MEDS: Gabapentin 400 MG CAPSULE 800 MG PO ×3 (08:18→21:03)
[2021-09-19] MEDS: rOPINIRole HCL 0.5 MG TABLET PO (08:18)
--- NOTE | 2021-09-19 12:11 | HO.PSYCHPN ---
Subjective Subjective Date of Service: 09/19/21 Reason For Visit: Bipolar, Schizoaffective Interim History: Patient seen. Patient complains of her hip hurting. She says she has arthritis. She was told she may have to replace her hip. She perseverates on this and says she doesn't want to replace her hip with a plastic hip because then it wouldn't be her anymore. She was somewhat paranoid. She has had no falls. She was walking steadily. improved ability to modulate her emotions. Pt to decide on referral to ortho. Review of Systems Review of Systems CVS: No c/o chest pain, palpitations, no SOB [employer]: No c/o dizziness, headache GI: No c/o Nausea, Vomiting, diarrhea, constipation or heartburn Yes all other systems are reviewed and are negative Gastrointestinal: Reports other (hemorrhoid pain) Musculoskeletal: Reports other (sciatica) Reports behavioral changes, Reports confusion and Reports memory loss Psychiatric: Reports abnormal sleep pattern, Reports anxiety, Reports behavioral changes, Reports change in appetite, Reports confusion, Reports depression, Reports difficulty concentrating, Reports auditory hallucinations, Reports hopelessness, Reports irritability, Reports anhedonia, Reports memory loss, Reports mood swings, Reports paranoia, Reports visual hallucinations, Reports hallucinations, Reports homicidal ideation (denies) and Reports suicidal ideation (denies) Mental Status Exam Mental Status Exam Narrative: Patient Appearance:?unkempt Patient Appearance: Disheveled Patient Orientation: Person, Place, Time and Situation Level of Consciousness: Awake Patient Behavior: Cooperative Mood Description: Flat, Apprehensive and Expansive Affect Description: Labile, Flat and Expansive Patient Cognition Impaired: No Ability to Follow Directions: Good Speech Pattern: Rambling and Pressured Memory Description: Intact Diagnostics Vital Signs (24Hr): Vital Signs - 24 hr 09/19/21 06:00 Pulse Rate 72 Respiratory Rate 16 Pulse Oximetry 98 BMI result Body Mass Index 32.8 Imaging Radiology Impressions: ITS Impressions Abdomen Ultrasound 09/01/21 08:59 IMPRESSION: Slightly echogenic liver. Limited evaluation of the gallbladder as the patient has recently eaten. No gallstone seen. Limited visualization of the pancreas. Hip X-Ray 09/16/21 14:47 IMPRESSION: Moderate to severe left hip arthritis. Medications Medications Current Medications Acetaminophen (Acetaminophen 325 Mg Tablet) 975 mg PO Q6H PRN PRN Reason: Headache/Pain Mild Scale (1-3) Last Admin: 09/19/21 21:06 Dose: 975 mg Documented by: Al Hydroxide/Mg Hydroxide (Magnesium Hydrox/Alum Hydrox 30 Ml Oral.Susp) 30 ml PO Q6H PRN PRN Reason: Heartburn/Nausea Last Admin: 08/22/21 05:54 Dose: 30 ml Documented by: Amlodipine Besylate (Amlodipine Besylate 2.5 Mg Tablet) 2.5 mg PO DAILY [facility]; Protocol Last Admin: 09/19/21 08:22 Dose: Not Given Documented by: Artificial Tears (Artificial Tears 15 Ml Drops) 2 drop EYE-BOTH Q4H PRN PRN Reason: Dry Eyes Last Admin: 09/19/21 18:50 Dose: 2 drop Documented by: Aspirin (Aspirin Enteric Coated 325 Mg Tablet.Dr) 650 mg PO DAILY PRN PRN Reason: headache Last Admin: 09/06/21 12:18 Dose: 650 mg Documented by: Benzocaine (Benzocaine 20 % Oral Gel 9 Gm Tube) 1 appl MUCOUS MEM QID PRN; Protocol PRN Reason: Mouth Sore Pain Last Admin: 08/31/21 03:05 Dose: 1 appl Documented by: Calcium Carbonate (Calcium Carbonate 500 Mg Tablet) 500 mg PO DAILY [facility] Last Admin: 09/19/21 08:17 Dose: 500 mg Documented by: Clonidine HCl (Clonidine Hcl 0.1 Mg Tablet) 0.1 mg PO BEDTIME [facility]; Protocol Last Admin: 09/19/21 21:03 Dose: 0.1 mg Documented by: [place] Butter/Zinc Oxide ([place] Butter/Zinc Oxide Supp.Rect) 1 supp [place] BID PRN PRN Reason: hemorrhoid pain [place] Butter/Zinc Oxide ([place] Butter/Zinc Oxide Supp.Rect) 1 supp [place] BEDTIME PRN PRN Reason: hemorrhoid pain Last Admin: 09/13/21 21:15 Dose: 1 supp Documented by: Cyanocobalamin (Cyanocobalamin (Vitamin B-12) 100 Mcg Tablet) 100 mcg PO DAILY [facility] Last Admin: 09/19/21 08:17 Dose: 100 mcg Documented by: Diphenhydramine HCl (Diphenhydramine Hcl 25 Mg Tablet) 50 mg PO Q6H PRN PRN Reason: eps Gabapentin (Gabapentin 400 Mg Capsule) 800 mg PO TID [facility] Last Admin: 01/30/22 21:03 Dose: 800 mg Documented by: Gabapentin (Gabapentin 100 Mg Capsule) 100 mg PO TID PRN PRN Reason: neuropathic pain Hydroxyzine HCl (Hydroxyzine Hcl 25 Mg Tablet) 25 mg PO BEDTIME PRN PRN Reason: Anxiety Last Admin: 09/17/21 20:54 Dose: 25 mg Documented by: Hydroxyzine HCl (Hydroxyzine Hcl 25 Mg Tablet) 25 mg PO BEDTIME [facility] Last Admin: 09/19/21 21:28 Dose: 25 mg Documented by: Ibuprofen (Ibuprofen 800 Mg Tablet) 800 mg PO Q8H PRN PRN Reason: Pain, Mild (Pain Scale 1-3) Last Admin: 09/19/21 17:40 Dose: 800 mg Documented by: Lidocaine (Lidocaine 4 % Patch Adh..Patch) 1 patch TRANSDERMA DAILY [facility]; Protocol Last Admin: 09/19/21 08:22 Dose: Not Given Documented by: Lidocaine (Lidocaine 4 % Patch Adh..Patch) 1 patch TRANSDERMA DAILY [facility]; Protocol Last Admin: 09/19/21 08:22 Dose: Not Given Documented by: [place] Carbonate ([place] Carbonate 300 Mg Tablet) 300 mg PO BID [facility] Last Admin: 09/19/21 21:03 Dose: 300 mg Documented by: Lorazepam (Lorazepam 1 Mg Tablet) 1 mg PO Q8H PRN PRN Reason: Anxiety Last Admin: 09/16/21 04:34 Dose: 1 mg Documented by: Magnesium Citrate (Magnesium Citrate 300 Ml Solution) 300 ml PO DAILY PRN PRN Reason: Constipation Last Admin: 09/19/21 21:11 Dose: 300 ml Documented by: Magnesium Hydroxide (Milk Of Magnesia 30 Ml Oral.Susp) 30 ml PO DAILY PRN PRN Reason: Constipation Last Admin: 08/31/21 20:05 Dose: 30 ml Documented by: Melatonin (Melatonin 3 Mg Tablet) 9 mg PO BEDTIME [facility] Last Admin: 09/19/21 21:03 Dose: 9 mg Documented by: Multi-Ingred Cream/Lotion/Oil/Oint (Mineral Oil/Petrolatum,White 106 Gm Tube) 1 appl TOPICAL BID [facility]; Protocol Last Admin: 09/19/21 21:28 Dose: Not Given Documented by: Multivitamins/Vitamin C (Multivitamin Tablet) 1 tab PO DAILY [facility] Last Admin: 09/19/21 08:17 Dose: 1 tab Documented by: Nicotine (Nicotine 14 Mg Patch.Td24) 14 mg TRANSDERMA DAILY [facility] Last Admin: 09/19/21 08:16 Dose: 14 mg Documented by: Nicotine Polacrilex (Nicotine Polacrilex 2 Mg Gum) 4 mg BUCCAL Q1H PRN PRN Reason: Nicotine Cravings Last Admin: 09/19/21 21:11 Dose: 4 mg Documented by: Psyllium Hydrophilic Mucilloid (Psyllium Seed 3.4 Gm Powd.Pack) 3.4 gm PO DAILY [facility] Last Admin: 09/19/21 08:16 Dose: 3.4 gm Documented by: Quetiapine Fumarate (Quetiapine Fumarate 200 Mg Tablet) 200 mg PO Q6H PRN PRN Reason: anxiety/restlessness Last Admin: 09/17/21 05:33 Dose: 200 mg Documented by: Quetiapine Fumarate (Quetiapine Fumarate 100 Mg Tablet) 100 mg PO DAILY [facility] Last Admin: 09/19/21 08:17 Dose: 100 mg Documented by: Quetiapine Fumarate (Quetiapine Fumarate 300 Mg Tablet) 600 mg PO BEDTIME [facility] Last Admin: 09/19/21 21:03 Dose: 600 mg Documented by: Ropinirole HCl (Ropinirole Hcl 1 Mg Tablet) 2 mg PO 1900 [facility] Last Admin: 09/19/21 18:48 Dose: 2 mg Documented by: Ropinirole HCl (Ropinirole Hcl 0.5 Mg Tablet) 0.5 mg PO 0800 [facility] Last Admin: 09/19/21 08:18 Dose: 0.5 mg Documented by: Senna/Docusate Sodium (Sennosides/Docusate Sodium Tablet) 1 tab PO BID [facility] Last Admin: 09/19/21 21:03 Dose: 1 tab Documented by: Simethicone (Simethicone 80 Mg Tab.Chew) 80 mg PO QIDWMHS PRN PRN Reason: indigestion Sodium Chloride (Sodium Chloride 0.65 % Nasal 44 Ml Sprbtl) 1 spray NOSTRIL-B Q1H PRN PRN Reason: congestion Last Admin: 09/19/21 18:50 Dose: 1 spray Documented by: Trolamine Salicylate/Aloe Vera (Trolamine Salicylate 10%/Aloe Cream 35.4 Gm) 1 appl TOPICAL TID PRN PRN Reason: sciatica Last Admin: 09/03/21 05:27 Dose: 1 appl Documented by: Ziprasidone (Ziprasidone 20 Mg Capsule) 20 mg PO BID PRN PRN Reason: psychosis Allergies Allergies Allergy/AdvReac Type Severity Reaction Status Date / Time aripiprazole [From Abilify] Allergy Unknown Involuntary Verified 08/19/21 07:20 Spasms chlorpromazine Allergy Unknown Nausea and Verified 08/19/21 07:20 [From Thorazine] Vomiting haloperidol [From Haldol] Allergy Unknown Involuntary Verified 08/19/21 07:20 Spasms olanzapine [From Zyprexa] Allergy Unknown Involuntary Verified 08/19/21 07:20 Spasms paliperidone [From Invega] Allergy Unknown Hallucinati Verified 08/19/21 07:20 ons risperidone Allergy Unknown Involuntary Verified 08/19/21 07:20 Spasms Assessment & Plan Assessment & Plan (1) Schizoaffective disorder, bipolar type: Status: Acute Code(s): F25.0 - Schizoaffective disorder, bipolar type Assessment and Plan: 09/18/21- Continue current plan Discharge planning. (2) Lumbar radiculopathy: Status: Acute Code(s): M54.16 - Radiculopathy, lumbar region (3) Hip pain, left: Status: Acute Code(s): M25.552 - Pain in left hip I spent minutes with the patient and/or on the patient floor today, greater than?50% of which was spent counseling/coordinating care. Reason for contiued inpatient stay Substantial Risk for: harm to self
[2021-09-19] MEDS: Acetaminophen 325 MG TABLET 650 MG PO (14:43)
--- NOTE | 2021-09-19 15:15 | HO.PSYCHPN ---
Subjective Subjective Date of Service: 09/19/21 Reason For Visit: Bipolar, Schizoaffective Interim History: Patient seen. Patient complains of her hip hurting. She says she has arthritis. She was told she may have to replace her hip. She perseverates on this and says she doesn't want to replace her hip with a plastic hip because then it wouldn't be her anymore. She was somewhat paranoid. She has had no falls. She was walking steadily. improved ability to modulate her emotions. Pt to decide on referral to ortho. Review of Systems Review of Systems CVS: No c/o chest pain, palpitations, no SOB [employer]: No c/o dizziness, headache GI: No c/o Nausea, Vomiting, diarrhea, constipation or heartburn Yes all other systems are reviewed and are negative Gastrointestinal: Reports other (hemorrhoid pain) Musculoskeletal: Reports other (sciatica) Reports behavioral changes, Reports confusion and Reports memory loss Psychiatric: Reports abnormal sleep pattern, Reports anxiety, Reports behavioral changes, Reports change in appetite, Reports confusion, Reports depression, Reports difficulty concentrating, Reports auditory hallucinations, Reports hopelessness, Reports irritability, Reports anhedonia, Reports memory loss, Reports mood swings, Reports paranoia, Reports visual hallucinations, Reports hallucinations, Reports homicidal ideation (denies) and Reports suicidal ideation (denies) Mental Status Exam Mental Status Exam Narrative: Patient Appearance:?unkempt Patient Appearance: Disheveled Patient Orientation: Person, Place, Time and Situation Level of Consciousness: Awake Patient Behavior: Cooperative Mood Description: Flat, Apprehensive and Expansive Affect Description: Labile, Flat and Expansive Patient Cognition Impaired: No Ability to Follow Directions: Good Speech Pattern: Rambling and Pressured Memory Description: Intact Diagnostics Vital Signs (24Hr): Vital Signs - 24 hr 09/19/21 06:00 Pulse Rate 72 Respiratory Rate 16 Pulse Oximetry 98 BMI result Body Mass Index 32.8 Imaging Radiology Impressions: ITS Impressions Abdomen Ultrasound 09/01/21 08:59 IMPRESSION: Slightly echogenic liver. Limited evaluation of the gallbladder as the patient has recently eaten. No gallstone seen. Limited visualization of the pancreas. Hip X-Ray 09/16/21 14:47 IMPRESSION: Moderate to severe left hip arthritis. Medications Medications Current Medications Acetaminophen (Acetaminophen 325 Mg Tablet) 975 mg PO Q6H PRN PRN Reason: Headache/Pain Mild Scale (1-3) Last Admin: 09/19/21 21:06 Dose: 975 mg Documented by: Al Hydroxide/Mg Hydroxide (Magnesium Hydrox/Alum Hydrox 30 Ml Oral.Susp) 30 ml PO Q6H PRN PRN Reason: Heartburn/Nausea Last Admin: 08/22/21 05:54 Dose: 30 ml Documented by: Amlodipine Besylate (Amlodipine Besylate 2.5 Mg Tablet) 2.5 mg PO DAILY [facility]; Protocol Last Admin: 09/19/21 08:22 Dose: Not Given Documented by: Artificial Tears (Artificial Tears 15 Ml Drops) 2 drop EYE-BOTH Q4H PRN PRN Reason: Dry Eyes Last Admin: 09/19/21 18:50 Dose: 2 drop Documented by: Aspirin (Aspirin Enteric Coated 325 Mg Tablet.Dr) 650 mg PO DAILY PRN PRN Reason: headache Last Admin: 09/06/21 12:18 Dose: 650 mg Documented by: Benzocaine (Benzocaine 20 % Oral Gel 9 Gm Tube) 1 appl MUCOUS MEM QID PRN; Protocol PRN Reason: Mouth Sore Pain Last Admin: 08/31/21 03:05 Dose: 1 appl Documented by: Calcium Carbonate (Calcium Carbonate 500 Mg Tablet) 500 mg PO DAILY [facility] Last Admin: 09/19/21 08:17 Dose: 500 mg Documented by: Clonidine HCl (Clonidine Hcl 0.1 Mg Tablet) 0.1 mg PO BEDTIME [facility]; Protocol Last Admin: 09/19/21 21:03 Dose: 0.1 mg Documented by: [place] Butter/Zinc Oxide ([place] Butter/Zinc Oxide Supp.Rect) 1 supp [place] BID PRN PRN Reason: hemorrhoid pain [place] Butter/Zinc Oxide ([place] Butter/Zinc Oxide Supp.Rect) 1 supp [place] BEDTIME PRN PRN Reason: hemorrhoid pain Last Admin: 09/13/21 21:15 Dose: 1 supp Documented by: Cyanocobalamin (Cyanocobalamin (Vitamin B-12) 100 Mcg Tablet) 100 mcg PO DAILY [facility] Last Admin: 09/19/21 08:17 Dose: 100 mcg Documented by: Diphenhydramine HCl (Diphenhydramine Hcl 25 Mg Tablet) 50 mg PO Q6H PRN PRN Reason: eps Gabapentin (Gabapentin 400 Mg Capsule) 800 mg PO TID [facility] Last Admin: 01/30/22 21:03 Dose: 800 mg Documented by: Gabapentin (Gabapentin 100 Mg Capsule) 100 mg PO TID PRN PRN Reason: neuropathic pain Hydroxyzine HCl (Hydroxyzine Hcl 25 Mg Tablet) 25 mg PO BEDTIME PRN PRN Reason: Anxiety Last Admin: 09/17/21 20:54 Dose: 25 mg Documented by: Hydroxyzine HCl (Hydroxyzine Hcl 25 Mg Tablet) 25 mg PO BEDTIME YAYA Last Admin: 09/19/21 21:28 Dose: 25 mg Documented by: Ibuprofen (Ibuprofen 800 Mg Tablet) 800 mg PO Q8H PRN PRN Reason: Pain, Mild (Pain Scale 1-3) Last Admin: 09/19/21 17:40 Dose: 800 mg Documented by: Lidocaine (Lidocaine 4 % Patch Adh..Patch) 1 patch TRANSDERMA DAILY [facility]; Protocol Last Admin: 09/19/21 08:22 Dose: Not Given Documented by: Lidocaine (Lidocaine 4 % Patch Adh..Patch) 1 patch TRANSDERMA DAILY [facility]; Protocol Last Admin: 09/19/21 08:22 Dose: Not Given Documented by: [place] Carbonate ([place] Carbonate 300 Mg Tablet) 300 mg PO BID YAYA Last Admin: 09/19/21 21:03 Dose: 300 mg Documented by: Lorazepam (Lorazepam 1 Mg Tablet) 1 mg PO Q8H PRN PRN Reason: Anxiety Last Admin: 09/16/21 04:34 Dose: 1 mg Documented by: Magnesium Citrate (Magnesium Citrate 300 Ml Solution) 300 ml PO DAILY PRN PRN Reason: Constipation Last Admin: 09/19/21 21:11 Dose: 300 ml Documented by: Magnesium Hydroxide (Milk Of Magnesia 30 Ml Oral.Susp) 30 ml PO DAILY PRN PRN Reason: Constipation Last Admin: 08/31/21 20:05 Dose: 30 ml Documented by: Melatonin (Melatonin 3 Mg Tablet) 9 mg PO BEDTIME [facility]A Last Admin: 09/19/21 21:03 Dose: 9 mg Documented by: Multi-Ingred Cream/Lotion/Oil/Oint (Mineral Oil/Petrolatum,White 106 Gm Tube) 1 appl TOPICAL BID [facility]; Protocol Last Admin: 09/19/21 21:28 Dose: Not Given Documented by: Multivitamins/Vitamin C (Multivitamin Tablet) 1 tab PO DAILY [facility] Last Admin: 09/19/21 08:17 Dose: 1 tab Documented by: Nicotine (Nicotine 14 Mg Patch.Td24) 14 mg TRANSDERMA DAILY [facility] Last Admin: 09/19/21 08:16 Dose: 14 mg Documented by: Nicotine Polacrilex (Nicotine Polacrilex 2 Mg Gum) 4 mg BUCCAL Q1H PRN PRN Reason: Nicotine Cravings Last Admin: 09/19/21 21:11 Dose: 4 mg Documented by: Psyllium Hydrophilic Mucilloid (Psyllium Seed 3.4 Gm Powd.Pack) 3.4 gm PO DAILY [facility] Last Admin: 09/19/21 08:16 Dose: 3.4 gm Documented by: Quetiapine Fumarate (Quetiapine Fumarate 200 Mg Tablet) 200 mg PO Q6H PRN PRN Reason: anxiety/restlessness Last Admin: 09/17/21 05:33 Dose: 200 mg Documented by: Quetiapine Fumarate (Quetiapine Fumarate 100 Mg Tablet) 100 mg PO DAILY [facility] Last Admin: 09/19/21 08:17 Dose: 100 mg Documented by: Quetiapine Fumarate (Quetiapine Fumarate 300 Mg Tablet) 600 mg PO BEDTIME [facility] Last Admin: 09/19/21 21:03 Dose: 600 mg Documented by: Ropinirole HCl (Ropinirole Hcl 1 Mg Tablet) 2 mg PO 1900 [facility] Last Admin: 09/19/21 18:48 Dose: 2 mg Documented by: Ropinirole HCl (Ropinirole Hcl 0.5 Mg Tablet) 0.5 mg PO 0800 [facility] Last Admin: 09/19/21 08:18 Dose: 0.5 mg Documented by: Senna/Docusate Sodium (Sennosides/Docusate Sodium Tablet) 1 tab PO BID [facility] Last Admin: 09/19/21 21:03 Dose: 1 tab Documented by: Simethicone (Simethicone 80 Mg Tab.Chew) 80 mg PO QIDWMHS PRN PRN Reason: indigestion Sodium Chloride (Sodium Chloride 0.65 % Nasal 44 Ml Sprbtl) 1 spray NOSTRIL-B Q1H PRN PRN Reason: congestion Last Admin: 09/19/21 18:50 Dose: 1 spray Documented by: Trolamine Salicylate/Aloe Vera (Trolamine Salicylate 10%/Aloe Cream 35.4 Gm) 1 appl TOPICAL TID PRN PRN Reason: sciatica Last Admin: 09/03/21 05:27 Dose: 1 appl Documented by: Ziprasidone (Ziprasidone 20 Mg Capsule) 20 mg PO BID PRN PRN Reason: psychosis Allergies Allergies Allergy/AdvReac Type Severity Reaction Status Date / Time aripiprazole [From Abilify] Allergy Unknown Involuntary Verified 08/19/21 07:20 Spasms chlorpromazine Allergy Unknown Nausea and Verified 08/19/21 07:20 [From Thorazine] Vomiting haloperidol [From Haldol] Allergy Unknown Involuntary Verified 08/19/21 07:20 Spasms olanzapine [From Zyprexa] Allergy Unknown Involuntary Verified 08/19/21 07:20 Spasms paliperidone [From Invega] Allergy Unknown Hallucinati Verified 08/19/21 07:20 ons risperidone Allergy Unknown Involuntary Verified 08/19/21 07:20 Spasms Assessment & Plan Assessment & Plan (1) Schizoaffective disorder, bipolar type: Status: Acute Code(s): F25.0 - Schizoaffective disorder, bipolar type Assessment and Plan: 09/18/21- Continue current plan Discharge planning. (2) Lumbar radiculopathy: Status: Acute Code(s): M54.16 - Radiculopathy, lumbar region (3) Hip pain, left: Status: Acute Code(s): M25.552 - Pain in left hip I spent minutes with the patient and/or on the patient floor today, greater than?50% of which was spent counseling/coordinating care. Reason for contiued inpatient stay Substantial Risk for: harm to self
[2021-09-19] MEDS: rOPINIRole HCL 1 MG TABLET 2 MG PO (18:48)
[2021-09-19] MEDS: Artificial Tears 15 ML DROPS 2 DROP EYE-BOTH (18:50)
[2021-09-19] MEDS: Sodium Chloride 0.65 % Nasal 44 ML SPRBTL 1 SPRAY NOSTRIL-B (18:50)
[2021-09-19] MEDS: cloNIDine HCL 0.1 MG TABLET PO (21:03)
[2021-09-19] MEDS: Melatonin 3 MG TABLET 9 MG PO (21:03)
[2021-09-19] MEDS: QUEtiapine Fumarate 300 MG TABLET 600 MG PO (21:03)
[2021-09-19] MEDS: Acetaminophen 325 MG TABLET 975 MG PO (21:06)
[2021-09-19] MEDS: Magnesium Citrate 300 ML SOLUTION PO (21:11)
[2021-09-19] MEDS: hydrOXYzine HCL 25 MG TABLET PO (21:28)
[2021-09-20 08:44] VITALS: BP 115/55; PULSE 71; RESP 14
[2021-09-20] MEDS: Gabapentin 400 MG CAPSULE 800 MG PO ×3 (09:16→22:25)
[2021-09-20] MEDS: rOPINIRole HCL 0.5 MG TABLET PO (09:16)
[2021-09-20] MEDS: Lithium Carbonate 300 MG TABLET PO ×2 (09:16→22:25)
[2021-09-20] MEDS: amLODIPine Besylate 2.5 MG TABLET PO (09:16)
[2021-09-20] MEDS: QUEtiapine Fumarate 100 MG TABLET PO (09:16)
[2021-09-20] MEDS: Sennosides/Docusate Sodium TABLET 1 TAB PO ×2 (09:16→22:25)
[2021-09-20] MEDS: Multivitamin TABLET 1 TAB PO (09:16)
[2021-09-20] MEDS: Cyanocobalamin (Vitamin B-12) 100 MCG TABLET PO (09:17)
[2021-09-20] MEDS: Nicotine Polacrilex 2 MG GUM 4 MG BUCCAL ×3 (09:37→22:37)
[2021-09-20] MEDS: Acetaminophen 325 MG TABLET 975 MG PO ×2 (09:42→19:02)
[2021-09-20] MEDS: Ibuprofen 800 MG TABLET PO ×2 (14:45→22:38)
--- NOTE | 2021-09-20 17:12 | P.PNPSI_ITS ---
Subjective Subjective Date of Service: 09/20/21 Reason For Visit: Bipolar, Schizoaffective Subjective Notes: Conditional Voluntary Interim History: I feel OK, my hip is in pain. Is surgery the only option? Pt reports medication regime to be helpful-reports she is sleeping and eating well and she is pleased with her transition plan. She does report concern about her hip pain-aware of arthritis dx per scan. Encouraged to have orthopedic consult as an out patient-discussed the purpose of a consult and that accepting the consult is not an acceptance of surgery, just a meeting to gather information and an opinion regarding her treatment options. She will consider. Discussed concerns about transition of [facility] area and not being able to receive her monthly checks. Encouraged to allow time for this. Review of mood lability- she reports she believes this to be improved-she presents with less pressure, less conflict with team, team reports no incidents, pt reports she is feeling more capable of appropriate problem solving methods as well. Medication Compliance: Yes Side effects from medications: No Attending Groups: Intermittent Review of Systems Acute medical concerns: No Medical Review of Systems: unchanged Review of Systems Reports behavioral changes Psychiatric: Reports behavioral changes, Reports irritability and Reports mood swings Mental Status Exam Mental Status Exam Patient Appearance: Appropriate Patient Orientation: Person, Place, Time and Situation Level of Consciousness: Alert Patient Behavior: Talkative and Good Eye Contact Mood Description: Appropriate Affect Description: Constricted Patient Cognition Impaired: No Ability to Follow Directions: Good Speech Pattern: Spontaneous Speech Memory Description: Episodic Impaired Hallucinations: Auditory Delusions: Paranoid Ideation Thought Process: Distracted and Goal Oriented Thought Content: positive for [place], positive for Circumstantial and positive for Goal Oriented Depressive Symptoms: Diff. Making Decisions Judgement: Fair Diagnostics Vital Signs (24Hr): Vital Signs - 24 hr 09/20/21 08:44 Pulse Rate 71 Respiratory Rate 14 Blood Pressure 115/55 L BMI result [place] 4 Body Mass Index [place] 4 32.8 [place] 4 [place] 4 Imaging Radiology Impressions: ITS Impressions Abdomen Ultrasound 09/01/21 08:59 IMPRESSION: Slightly echogenic liver. Limited evaluation of the gallbladder as the patient has recently eaten. No gallstone seen. Limited visualization of the pancreas. Hip X-Ray 09/16/21 14:47 IMPRESSION: Moderate to severe left hip arthritis. Medications Medications Current Medications Acetaminophen (Acetaminophen 325 Mg Tablet) 975 mg PO Q6H PRN PRN Reason: Headache/Pain Mild Scale (1-3) Last Admin: 09/20/21 09:42 Dose: 975 mg Documented by: Al Hydroxide/Mg Hydroxide (Magnesium Hydrox/Alum Hydrox 30 Ml Oral.Susp) 30 ml PO Q6H PRN PRN Reason: Heartburn/Nausea Last Admin: 08/22/21 05:54 Dose: 30 ml Documented by: Amlodipine Besylate (Amlodipine Besylate 2.5 Mg Tablet) 2.5 mg PO DAILY [facility]; Protocol Last Admin: 09/20/21 09:16 Dose: 2.5 mg Documented by: Artificial Tears (Artificial Tears 15 Ml Drops) 2 drop EYE-BOTH Q4H PRN PRN Reason: Dry Eyes Last Admin: 09/19/21 18:50 Dose: 2 drop Documented by: Aspirin (Aspirin Enteric Coated 325 Mg Tablet.Dr) 650 mg PO DAILY PRN PRN Reason: headache Last Admin: 09/06/21 12:18 Dose: 650 mg Documented by: Benzocaine (Benzocaine 20 % Oral Gel 9 Gm Tube) 1 appl MUCOUS MEM QID PRN; Protocol PRN Reason: Mouth Sore Pain Last Admin: 08/31/21 03:05 Dose: 1 appl Documented by: Calcium Carbonate (Calcium Carbonate 500 Mg Tablet) 500 mg PO DAILY [facility] Last Admin: 09/20/21 09:16 Dose: 500 mg Documented by: Clonidine HCl (Clonidine Hcl 0.1 Mg Tablet) 0.1 mg PO BEDTIME [facility]; Protocol Last Admin: 09/19/21 21:03 Dose: 0.1 mg Documented by: [place] Butter/Zinc Oxide ([place] Butter/Zinc Oxide Supp.Rect) 1 supp [place] BID PRN PRN Reason: hemorrhoid pain [place] Butter/Zinc Oxide ([place] Butter/Zinc Oxide Supp.Rect) 1 supp [place] BEDTIME PRN PRN Reason: hemorrhoid pain Last Admin: 09/13/21 21:15 Dose: 1 supp Documented by: Cyanocobalamin (Cyanocobalamin (Vitamin B-12) 100 Mcg Tablet) 100 mcg PO DAILY [facility] Last Admin: 09/20/21 09:17 Dose: 100 mcg Documented by: Diphenhydramine HCl (Diphenhydramine Hcl 25 Mg Tablet) 50 mg PO Q6H PRN PRN Reason: eps Gabapentin (Gabapentin 400 Mg Capsule) 800 mg PO TID [facility] Last Admin: 09/20/21 14:32 Dose: 800 mg Documented by: Gabapentin (Gabapentin 100 Mg Capsule) 100 mg PO TID PRN PRN Reason: neuropathic pain Hydroxyzine HCl (Hydroxyzine Hcl 25 Mg Tablet) 25 mg PO BEDTIME PRN PRN Reason: Anxiety Last Admin: 09/17/21 20:54 Dose: 25 mg Documented by: Hydroxyzine HCl (Hydroxyzine Hcl 25 Mg Tablet) 25 mg PO BEDTIME [facility] Last Admin: 09/19/21 21:28 Dose: 25 mg Documented by: Ibuprofen (Ibuprofen 800 Mg Tablet) 800 mg PO Q8H PRN PRN Reason: Pain, Mild (Pain Scale 1-3) Last Admin: 09/20/21 14:45 Dose: 800 mg Documented by: Lidocaine (Lidocaine 4 % Patch Adh..Patch) 1 patch TRANSDERMA DAILY [facility]; Protocol Last Admin: 09/20/21 08:31 Dose: Not Given Documented by: Lidocaine (Lidocaine 4 % Patch Adh..Patch) 1 patch TRANSDERMA DAILY [facility]; Protocol Last Admin: 09/20/21 08:31 Dose: Not Given Documented by: [place] Carbonate ([place] Carbonate 300 Mg Tablet) 300 mg PO BID [facility] Last Admin: 09/20/21 09:16 Dose: 300 mg Documented by: Magnesium Citrate (Magnesium Citrate 300 Ml Solution) 300 ml PO DAILY PRN PRN Reason: Constipation Last Admin: 09/19/21 21:11 Dose: 300 ml Documented by: Magnesium Hydroxide (Milk Of Magnesia 30 Ml Oral.Susp) 30 ml PO DAILY PRN PRN Reason: Constipation Last Admin: 08/31/21 20:05 Dose: 30 ml Documented by: Melatonin (Melatonin 3 Mg Tablet) 9 mg PO BEDTIME [facility] Last Admin: 09/19/21 21:03 Dose: 9 mg Documented by: Multi-Ingred Cream/Lotion/Oil/Oint (Mineral Oil/Petrolatum,White 106 Gm Tube) 1 appl TOPICAL BID [facility]; Protocol Last Admin: 09/20/21 08:31 Dose: Not Given Documented by: Multivitamins/Vitamin C (Multivitamin Tablet) 1 tab PO DAILY [facility] Last Admin: 09/20/21 09:16 Dose: 1 tab Documented by: Nicotine (Nicotine 14 Mg Patch.Td24) 14 mg TRANSDERMA DAILY [facility] Last Admin: 09/20/21 09:18 Dose: Not Given Documented by: Nicotine Polacrilex (Nicotine Polacrilex 2 Mg Gum) 4 mg BUCCAL Q1H PRN PRN Reason: Nicotine Cravings Last Admin: 09/20/21 09:37 Dose: 4 mg Documented by: Psyllium Hydrophilic Mucilloid (Psyllium Seed 3.4 Gm Powd.Pack) 3.4 gm PO DAILY [facility] Last Admin: 09/20/21 09:17 Dose: 3.4 gm Documented by: Quetiapine Fumarate (Quetiapine Fumarate 200 Mg Tablet) 200 mg PO Q6H PRN PRN Reason: anxiety/restlessness Last Admin: 09/17/21 05:33 Dose: 200 mg Documented by: Quetiapine Fumarate (Quetiapine Fumarate 100 Mg Tablet) 100 mg PO DAILY [facility] Last Admin: 09/20/21 09:16 Dose: 100 mg Documented by: Quetiapine Fumarate (Quetiapine Fumarate 300 Mg Tablet) 600 mg PO BEDTIME [facility] Last Admin: 09/19/21 21:03 Dose: 600 mg Documented by: Ropinirole HCl (Ropinirole Hcl 1 Mg Tablet) 2 mg PO 1900 [facility] Last Admin: 09/19/21 18:48 Dose: 2 mg Documented by: Ropinirole HCl (Ropinirole Hcl 0.5 Mg Tablet) 0.5 mg PO 0800 [facility] Last Admin: 09/20/21 09:16 Dose: 0.5 mg Documented by: Senna/Docusate Sodium (Sennosides/Docusate Sodium Tablet) 1 tab PO BID [facility] Last Admin: 09/20/21 09:16 Dose: 1 tab Documented by: Simethicone (Simethicone 80 Mg Tab.Chew) 80 mg PO QIDWMHS PRN PRN Reason: indigestion Sodium Chloride (Sodium Chloride 0.65 % Nasal 44 Ml Sprbtl) 1 spray NOSTRIL-B Q1H PRN PRN Reason: congestion Last Admin: 09/19/21 18:50 Dose: 1 spray Documented by: Trolamine Salicylate/Aloe Vera (Trolamine Salicylate 10%/Aloe Cream 35.4 Gm) 1 appl TOPICAL TID PRN PRN Reason: sciatica Last Admin: 09/03/21 05:27 Dose: 1 appl Documented by: Ziprasidone (Ziprasidone 20 Mg Capsule) 20 mg PO BID PRN PRN Reason: psychosis Allergies Allergies Allergy/AdvReac Type Severity Reaction Status Date / Time aripiprazole [From Allergy Unknown Involuntary Verified 08/19/21 07:20 Abilify] Spasms chlorpromazine Allergy Unknown Nausea and Verified 08/19/21 07:20 [From Thorazine] Vomiting haloperidol [From Allergy Unknown Involuntary Verified 08/19/21 07:20 Haldol] Spasms olanzapine [From Allergy Unknown Involuntary Verified 08/19/21 07:20 Zyprexa] Spasms paliperidone [From Allergy Unknown Hallucinati Verified 08/19/21 07:20 Invega] ons risperidone Allergy Unknown Involuntary Verified 08/19/21 07:20 Spasms Assessment & Plan Assessment & Plan (1) Schizoaffective disorder, bipolar type: Status: Acute Code(s): F25.0 - Schizoaffective disorder, bipolar type Assessment and Plan: 09/18/21- Continue current plan Discharge planning. (2) Lumbar radiculopathy: Status: Acute Code(s): M54.16 - Radiculopathy, lumbar region (3) Hip pain, left: Status: Acute Code(s): M25.552 - Pain in left hip Plan 09/20/21- Improving. Transition planning with [facility]. Pt is looking at discharge to a rest home and transitioning to [facility] services in [facility]. No medication changes today. I spent 30 minutes with the patient and/or on the patient floor today, greater than?50% of which was spent counseling/coordinating care. Patient educated on: therapeutic strategies and medical condition Informed Consent: understands and further education needed Reason for contiued inpatient stay Substantial Risk for: harm to self, harm to others, inability to function, rapid decompensation and med/psych decompensation
[2021-09-20 18:00] VITALS: BP 121/68; PULSE 74; TEMP 36.4; O2SAT 98
[2021-09-20] MEDS: rOPINIRole HCL 1 MG TABLET 2 MG PO (19:00)
[2021-09-20] MEDS: QUEtiapine Fumarate 200 MG TABLET PO (19:08)
[2021-09-20] MEDS: cloNIDine HCL 0.1 MG TABLET PO (22:25)
[2021-09-20] MEDS: QUEtiapine Fumarate 300 MG TABLET 600 MG PO (22:26)
[2021-09-20] MEDS: hydrOXYzine HCL 25 MG TABLET PO (22:26)
[2021-09-20] MEDS: Melatonin 3 MG TABLET 9 MG PO (22:26)
[2021-09-21] MEDS: Nicotine Polacrilex 2 MG GUM 4 MG BUCCAL ×5 (02:38→21:17)
[2021-09-21] MEDS: QUEtiapine Fumarate 200 MG TABLET PO (02:38)
[2021-09-21 06:00] VITALS: BP 134/78; PULSE 79; RESP 18; TEMP 37.2; O2SAT 96
[2021-09-21] MEDS: Ibuprofen 800 MG TABLET PO ×2 (09:26→18:02)
[2021-09-21] MEDS: Lithium Carbonate 300 MG TABLET PO ×2 (09:27→21:15)
[2021-09-21] MEDS: amLODIPine Besylate 2.5 MG TABLET PO (09:27)
[2021-09-21] MEDS: Multivitamin TABLET 1 TAB PO (09:27)
[2021-09-21] MEDS: QUEtiapine Fumarate 100 MG TABLET PO (09:27)
[2021-09-21] MEDS: Gabapentin 400 MG CAPSULE 800 MG PO ×3 (09:27→21:16)
[2021-09-21] MEDS: Cyanocobalamin (Vitamin B-12) 100 MCG TABLET PO (09:27)
[2021-09-21] MEDS: Sennosides/Docusate Sodium TABLET 1 TAB PO ×2 (09:27→21:15)
[2021-09-21] MEDS: rOPINIRole HCL 0.5 MG TABLET PO (09:27)
[2021-09-21] MEDS: Lidocaine 4 % Patch ADH..PATCH 1 PATCH TRANSDERMA ×2 (09:32→09:33)
--- NOTE | 2021-09-21 11:30 | P.PNPSI_ITS ---
Subjective Subjective Date of Service: 09/21/21 Reason For Visit: Bipolar, Schizoaffective Subjective Notes: Conditional Voluntary Interim History: Pt reports she is sleeping and eating well. She reports hip pain, feels ibuprofen is partially effective. She denies SI/HI- somewhat irritable with this life insurance underwriter when asked stating why everyone asks this all the time, next time I may have to say yes! She denies AH/VH. Per nursing, pt slept through the night, taking medications as prescribed, mostly in her room. No behavioral concerns. Medication Compliance: Yes Side effects from medications: No Review of Systems Review of Systems CVS: No c/o chest pain, palpitations, no SOB PHARMACY SCHEDULER: No c/o dizziness, headache GI: No c/o Nausea, Vomiting, diarrhea, constipation or heartburn Yes all other systems are reviewed and are negative Gastrointestinal: Reports other (hemorrhoid pain) Musculoskeletal: Reports other (sciatica) Reports behavioral changes, Reports confusion and Reports memory loss Psychiatric: Reports abnormal sleep pattern, Reports anxiety, Reports behavioral changes, Reports change in appetite, Reports confusion, Reports depression, Reports difficulty concentrating, Reports auditory hallucinations, Reports hopelessness, Reports irritability, Reports anhedonia, Reports memory loss, Reports mood swings, Reports paranoia, Reports visual hallucinations, Reports hallucinations, Reports homicidal ideation (denies) and Reports suicidal ideation (denies) Mental Status Exam Mental Status Exam Narrative: lert, oriented x 3. MO, casually groomed, somewhat irritable but cooperative. No overt psychomotor agitation or retardation noted. Speech clear, normal rate/rhythm/volume, spontaneous. TP: linear. TC: without overt psychosis, in pain (hip pain). SI: none HI: none VH/AH: denies. Delusions: no overt delusional content reported. Insight/judgment: improving but still limited. Diagnostics Vital Signs (24Hr): Vital Signs - 24 hr 09/20/21 18:00 09/21/21 06:00 Temperature 97.6 F 98.9 F Pulse Rate 74 79 Respiratory Rate 18 Blood Pressure 121/68 134/78 Pulse Oximetry 98 96 BMI result Verdana 4 Body Mass Index Ver[place]ana 4 32.8 Verdana 4 Verdana 4 Imaging Radiology Impressions: ITS Impressions Abdomen Ultrasound 09/01/21 08:59 IMPRESSION: Slightly echogenic liver. Limited evaluation of the gallbladder as the patient has recently eaten. No gallstone seen. Limited visualization of the pancreas. Hip X-Ray 09/16/21 14:47 IMPRESSION: Moderate to severe left hip arthritis. Medications Medications Current Medications Acetaminophen (Acetaminophen 325 Mg Tablet) 975 mg PO Q6H PRN PRN Reason: Headache/Pain Mild Scale (1-3) Last Admin: 09/20/21 19:02 Dose: 975 mg Documented by: Al Hydroxide/Mg Hydroxide (Magnesium Hydrox/Alum Hydrox 30 Ml Oral.Susp) 30 ml PO Q6H PRN PRN Reason: Heartburn/Nausea Last Admin: 08/22/21 05:54 Dose: 30 ml Documented by: Amlodipine Besylate (Amlodipine Besylate 2.5 Mg Tablet) 2.5 mg PO DAILY [facility]; Protocol Last Admin: 09/21/21 09:27 Dose: 2.5 mg Documented by: Artificial Tears (Artificial Tears 15 Ml Drops) 2 drop EYE-BOTH Q4H PRN PRN Reason: Dry Eyes Last Admin: 09/19/21 18:50 Dose: 2 drop Documented by: Aspirin (Aspirin Enteric Coated 325 Mg Tablet.) 650 mg PO DAILY PRN PRN Reason: headache Last Admin: 09/06/21 12:18 Dose: 650 mg Documented by: Benzocaine (Benzocaine 20 % Oral Gel 9 Gm Tube) 1 appl MUCOUS MEM QID PRN; Protocol PRN Reason: Mouth Sore Pain Last Admin: 08/31/21 03:05 Dose: 1 appl Documented by: Calcium Carbonate (Calcium Carbonate 500 Mg Tablet) 500 mg PO DAILY [facility] Last Admin: 09/21/21 09:26 Dose: 500 mg Documented by: Clonidine HCl (Clonidine Hcl 0.1 Mg Tablet) 0.1 mg PO BEDTIME [facility]; Protocol Last Admin: 09/20/21 22:25 Dose: 0.1 mg Documented by: [place] Butter/Zinc Oxide ([place] Butter/Zinc Oxide Supp.Rect) 1 supp [place] BID PRN PRN Reason: hemorrhoid pain [place] Butter/Zinc Oxide ([place] Butter/Zinc Oxide Supp.Rect) 1 supp [place] BEDTIME PRN PRN Reason: hemorrhoid pain Last Admin: 09/13/21 21:15 Dose: 1 supp Documented by: Cyanocobalamin (Cyanocobalamin (Vitamin B-12) 100 Mcg Tablet) 100 mcg PO DAILY [facility] Last Admin: 09/21/21 09:27 Dose: 100 mcg Documented by: Diphenhydramine HCl (Diphenhydramine Hcl 25 Mg Tablet) 50 mg PO Q6H PRN PRN Reason: eps Gabapentin (Gabapentin 400 Mg Capsule) 800 mg PO TID YAYA Last Admin: 09/21/21 09:27 Dose: 800 mg Documented by: Gabapentin (Gabapentin 100 Mg Capsule) 100 mg PO TID PRN PRN Reason: neuropathic pain Hydroxyzine HCl (Hydroxyzine Hcl 25 Mg Tablet) 25 mg PO BEDTIME PRN PRN Reason: Anxiety Last Admin: 09/17/21 20:54 Dose: 25 mg Documented by: Hydroxyzine HCl (Hydroxyzine Hcl 25 Mg Tablet) 25 mg PO BEDTIME YAYA Last Admin: 09/20/21 22:26 Dose: 25 mg Documented by: Ibuprofen (Ibuprofen 800 Mg Tablet) 800 mg PO Q8H PRN PRN Reason: Pain, Mild (Pain Scale 1-3) Last Admin: 09/21/21 09:26 Dose: 800 mg Documented by: Lidocaine (Lidocaine 4 % Patch Adh..Patch) 1 patch TRANSDERMA DAILY [facility]; Protocol Last Admin: 09/21/21 09:32 Dose: 1 patch Documented by: Lidocaine (Lidocaine 4 % Patch Adh..Patch) 1 patch TRANSDERMA DAILY [facility]; Protocol Last Admin: 09/21/21 09:33 Dose: 1 patch Documented by: [place] Carbonate ([place] Carbonate 300 Mg Tablet) 300 mg PO BID YAYA Last Admin: 09/21/21 09:27 Dose: 300 mg Documented by: Magnesium Citrate (Magnesium Citrate 300 Ml Solution) 300 ml PO DAILY PRN PRN Reason: Constipation Last Admin: 09/19/21 21:11 Dose: 300 ml Documented by: Magnesium Hydroxide (Milk Of Magnesia 30 Ml Oral.Susp) 30 ml PO DAILY PRN PRN Reason: Constipation Last Admin: 08/31/21 20:05 Dose: 30 ml Documented by: Melatonin (Melatonin 3 Mg Tablet) 9 mg PO BEDTIME YAYA Last Admin: 09/20/21 22:26 Dose: 9 mg Documented by: Multi-Ingred Cream/Lotion/Oil/Oint (Mineral Oil/Petrolatum,White 106 Gm Tube) 1 appl TOPICAL BID [facility]; Protocol Last Admin: 09/21/21 09:37 Dose: Not Given Documented by: Multivitamins/Vitamin C (Multivitamin Tablet) 1 tab PO DAILY YAYA Last Admin: 09/21/21 09:27 Dose: 1 tab Documented by: Nicotine (Nicotine 14 Mg Patch.Td24) 14 mg TRANSDERMA DAILY [facility] Last Admin: 09/21/21 09:36 Dose: Not Given Documented by: Nicotine Polacrilex (Nicotine Polacrilex 2 Mg Gum) 4 mg BUCCAL Q1H PRN PRN Reason: Nicotine Cravings Last Admin: 09/21/21 09:27 Dose: 4 mg Documented by: Psyllium Hydrophilic Mucilloid (Psyllium Seed 3.4 Gm Powd.Pack) 3.4 gm PO DAILY [facility] Last Admin: 09/21/21 09:28 Dose: 3.4 gm Documented by: Quetiapine Fumarate (Quetiapine Fumarate 200 Mg Tablet) 200 mg PO Q6H PRN PRN Reason: anxiety/restlessness Last Admin: 09/21/21 02:38 Dose: 200 mg Documented by: Quetiapine Fumarate (Quetiapine Fumarate 100 Mg Tablet) 100 mg PO DAILY [facility] Last Admin: 09/21/21 09:27 Dose: 100 mg Documented by: Quetiapine Fumarate (Quetiapine Fumarate 300 Mg Tablet) 600 mg PO BEDTIME [facility] Last Admin: 09/20/21 22:26 Dose: 600 mg Documented by: Ropinirole HCl (Ropinirole Hcl 1 Mg Tablet) 2 mg PO 1900 [facility] Last Admin: 09/20/21 19:00 Dose: 2 mg Documented by: Ropinirole HCl (Ropinirole Hcl 0.5 Mg Tablet) 0.5 mg PO 0800 [facility] Last Admin: 09/21/21 09:27 Dose: 0.5 mg Documented by: Senna/Docusate Sodium (Sennosides/Docusate Sodium Tablet) 1 tab PO BID [facility] Last Admin: 09/21/21 09:27 Dose: 1 tab Documented by: Simethicone (Simethicone 80 Mg Tab.Chew) 80 mg PO QIDWMHS PRN PRN Reason: indigestion Sodium Chloride (Sodium Chloride 0.65 % Nasal 44 Ml Sprbtl) 1 spray NOSTRIL-B Q1H PRN PRN Reason: congestion Last Admin: 09/19/21 18:50 Dose: 1 spray Documented by: Trolamine Salicylate/Aloe Vera (Trolamine Salicylate 10%/Aloe Cream 35.4 Gm) 1 appl TOPICAL TID PRN PRN Reason: sciatica Last Admin: 09/03/21 05:27 Dose: 1 appl Documented by: Ziprasidone (Ziprasidone 20 Mg Capsule) 20 mg PO BID PRN PRN Reason: psychosis Allergies Allergies Allergy/AdvReac Type Severity Reaction Status Date / Time aripiprazole [From Allergy Unknown Involuntary Verified 08/19/21 07:20 Abilify] Spasms chlorpromazine Allergy Unknown Nausea and Verified 08/19/21 07:20 [From Thorazine] Vomiting haloperidol [From Allergy Unknown Involuntary Verified 08/19/21 07:20 Haldol] Spasms olanzapine [From Allergy Unknown Involuntary Verified 08/19/21 07:20 Zyprexa] Spasms paliperidone [From Allergy Unknown Hallucinati Verified 08/19/21 07:20 Invega] ons risperidone Allergy Unknown Involuntary Verified 08/19/21 07:20 Spasms Assessment & Plan Assessment & Plan (1) Schizoaffective disorder, bipolar type: Status: Acute Code(s): F25.0 - Schizoaffective disorder, bipolar type Assessment and Plan: 09/18/21- Continue current plan Discharge planning. (2) Lumbar radiculopathy: Status: Acute Code(s): M54.16 - Radiculopathy, lumbar region (3) Hip pain, left: Status: Acute Code(s): M25.552 - Pain in left hip Plan 09/20/21- Improving. Transition planning with [facility]. Pt is looking at discharge to a rest home and transitioning to [facility] services in [facility]. No medication changes today. 09/21: stable on current medications. on seroquel and lithium, c/o of hip pain on ibuprofen with partial response. no behavioral concerns. no overt delusional content nor psychosis noted. I spent ___25___ minutes with the patient and/or on the patient floor today, greater than?50% of which was spent counseling/coordinating care. Reason for contiued inpatient stay Substantial Risk for: inability to function
[2021-09-21] MEDS: Acetaminophen 325 MG TABLET 975 MG PO (14:16)
[2021-09-21] MEDS: Artificial Tears 15 ML DROPS 2 DROP EYE-BOTH (17:50)
[2021-09-21] MEDS: Sodium Chloride 0.65 % Nasal 44 ML SPRBTL 1 SPRAY NOSTRIL-B (17:50)
[2021-09-21] MEDS: rOPINIRole HCL 1 MG TABLET 2 MG PO (19:21)
[2021-09-21 20:30] VITALS: BP 116/85; PULSE 79; TEMP 36.6; O2SAT 97
[2021-09-21] MEDS: QUEtiapine Fumarate 300 MG TABLET 600 MG PO (21:16)
[2021-09-21] MEDS: Melatonin 3 MG TABLET 9 MG PO (21:16)
[2021-09-21] MEDS: hydrOXYzine HCL 25 MG TABLET PO (21:16)
[2021-09-21] MEDS: cloNIDine HCL 0.1 MG TABLET PO (21:16)
[2021-09-22 06:00] VITALS: BP 120/80; PULSE 78; RESP 14; TEMP 36; O2SAT 97
[2021-09-22] MEDS: Nicotine Polacrilex 2 MG GUM 4 MG BUCCAL ×3 (10:28→19:41)
[2021-09-22] MEDS: Multivitamin TABLET 1 TAB PO (10:29)
[2021-09-22] MEDS: Gabapentin 400 MG CAPSULE 800 MG PO ×3 (10:29→19:43)
[2021-09-22] MEDS: amLODIPine Besylate 2.5 MG TABLET PO (10:29)
[2021-09-22] MEDS: rOPINIRole HCL 0.5 MG TABLET PO (10:30)
[2021-09-22] MEDS: Lithium Carbonate 300 MG TABLET PO ×2 (10:30→19:43)
[2021-09-22] MEDS: Cyanocobalamin (Vitamin B-12) 100 MCG TABLET PO (10:30)
[2021-09-22] MEDS: QUEtiapine Fumarate 100 MG TABLET PO (10:30)
[2021-09-22] MEDS: Lidocaine 4 % Patch ADH..PATCH 1 PATCH TRANSDERMA ×2 (10:30)
[2021-09-22] MEDS: Ibuprofen 800 MG TABLET PO (10:30)
[2021-09-22] MEDS: Sennosides/Docusate Sodium TABLET 1 TAB PO ×2 (10:30→19:42)
[2021-09-22] MEDS: Nicotine 14 MG PATCH.TD24 TRANSDERMA (10:33)
[2021-09-22] MEDS: Magnesium Citrate 300 ML SOLUTION PO (10:37)
[2021-09-22] MEDS: Acetaminophen 325 MG TABLET 975 MG PO (14:30)
--- NOTE | 2021-09-22 18:02 | P.PNPSI_ITS ---
Subjective Subjective Date of Service: 09/22/21 Reason For Visit: Bipolar, Schizoaffective Subjective Notes: Conditional Voluntary Interim History: Pt reports worry about her ability to transfer her care to [facility] and losing her monthly income in the process. Reports hip pain-she has not made a decision as yet regarding orthopedic referral. Mood/behavior are improved-she is non pressured, appropriate, interacting with staff and peers and behaviorally well modulated. Medication Compliance: Yes Side effects from medications: No Attending Groups: Intermittent Review of Systems Hip Pain-Left side. Medical Review of Systems: unchanged Review of Systems Psychiatric: Reports no additional psychiatric complaints and Reports anxiety Mental Status Exam Mental Status Exam Patient Appearance: Appropriate Patient Orientation: Person, Place, Time and Situation Level of Consciousness: Alert Patient Behavior: Talkative and Good Eye Contact Mood Description: Appropriate Affect Description: Constricted Patient Cognition Impaired: No Ability to Follow Directions: Good Speech Pattern: Spontaneous Speech Memory Description: Episodic Impaired Hallucinations: Auditory Delusions: Paranoid Ideation Thought Process: Distracted and Goal Oriented Thought Content: positive for [place], positive for Circumstantial and positive for Goal Oriented Depressive Symptoms: Diff. Making Decisions Judgement: Fair Diagnostics Vital Signs (24Hr): Vital Signs - 24 hr 09/21/21 20:30 09/22/21 06:00 Temperature 97.8 F 96.8 F Pulse Rate 79 78 Respiratory Rate 14 Blood Pressure 116/85 120/80 Pulse Oximetry 97 97 BMI result Verdana 4 Body Mass Index Ver[place] 4 32.8 Verdana 4 Verdana 4 Imaging Radiology Impressions: ITS Impressions Abdomen Ultrasound 09/01/21 08:59 IMPRESSION: Slightly echogenic liver. Limited evaluation of the gallbladder as the patient has recently eaten. No gallstone seen. Limited visualization of the pancreas. Hip X-Ray 09/16/21 14:47 IMPRESSION: Moderate to severe left hip arthritis. Medications Medications Current Medications Acetaminophen (Acetaminophen 325 Mg Tablet) 975 mg PO Q6H PRN PRN Reason: Headache/Pain Mild Scale (1-3) Last Admin: 09/22/21 14:30 Dose: 975 mg Documented by: Al Hydroxide/Mg Hydroxide (Magnesium Hydrox/Alum Hydrox 30 Ml Oral.Susp) 30 ml PO Q6H PRN PRN Reason: Heartburn/Nausea Last Admin: 08/22/21 05:54 Dose: 30 ml Documented by: Amlodipine Besylate (Amlodipine Besylate 2.5 Mg Tablet) 2.5 mg PO DAILY [facility]; Protocol Last Admin: 09/22/21 10:29 Dose: 2.5 mg Documented by: Artificial Tears (Artificial Tears 15 Ml Drops) 2 drop EYE-BOTH Q4H PRN PRN Reason: Dry Eyes Last Admin: 09/21/21 17:50 Dose: 2 drop Documented by: Aspirin (Aspirin Enteric Coated 325 Mg Tablet.) 650 mg PO DAILY PRN PRN Reason: headache Last Admin: 09/06/21 12:18 Dose: 650 mg Documented by: Benzocaine (Benzocaine 20 % Oral Gel 9 Gm Tube) 1 appl MUCOUS MEM QID PRN; Protocol PRN Reason: Mouth Sore Pain Last Admin: 08/31/21 03:05 Dose: 1 appl Documented by: Calcium Carbonate (Calcium Carbonate 500 Mg Tablet) 500 mg PO DAILY [facility] Last Admin: 09/22/21 10:30 Dose: 500 mg Documented by: Clonidine HCl (Clonidine Hcl 0.1 Mg Tablet) 0.1 mg PO BEDTIME [facility]; Protocol Last Admin: 09/21/21 21:16 Dose: 0.1 mg Documented by: [place] Butter/Zinc Oxide ([place] Butter/Zinc Oxide Supp.Rect) 1 supp [place] BID PRN PRN Reason: hemorrhoid pain [place] Butter/Zinc Oxide ([place] Butter/Zinc Oxide Supp.Rect) 1 supp [place] BEDTIME PRN PRN Reason: hemorrhoid pain Last Admin: 09/13/21 21:15 Dose: 1 supp Documented by: Cyanocobalamin (Cyanocobalamin (Vitamin B-12) 100 Mcg Tablet) 100 mcg PO DAILY [facility] Last Admin: 09/22/21 10:30 Dose: 100 mcg Documented by: Diphenhydramine HCl (Diphenhydramine Hcl 25 Mg Tablet) 50 mg PO Q6H PRN PRN Reason: eps Gabapentin (Gabapentin 400 Mg Capsule) 800 mg PO TID YAYA Last Admin: 09/22/21 14:30 Dose: 800 mg Documented by: Gabapentin (Gabapentin 100 Mg Capsule) 100 mg PO TID PRN PRN Reason: neuropathic pain Hydroxyzine HCl (Hydroxyzine Hcl 25 Mg Tablet) 25 mg PO BEDTIME PRN PRN Reason: Anxiety Last Admin: 09/17/21 20:54 Dose: 25 mg Documented by: Hydroxyzine HCl (Hydroxyzine Hcl 25 Mg Tablet) 25 mg PO BEDTIME [facility]A Last Admin: 09/21/21 21:16 Dose: 25 mg Documented by: Ibuprofen (Ibuprofen 800 Mg Tablet) 800 mg PO Q8H PRN PRN Reason: Pain, Mild (Pain Scale 1-3) Last Admin: 09/22/21 10:30 Dose: 800 mg Documented by: Lidocaine (Lidocaine 4 % Patch Adh..Patch) 1 patch TRANSDERMA DAILY [facility]; Protocol Last Admin: 09/22/21 10:30 Dose: 1 patch Documented by: Lidocaine (Lidocaine 4 % Patch Adh..Patch) 1 patch TRANSDERMA DAILY [facility]; Protocol Last Admin: 09/22/21 10:30 Dose: 1 patch Documented by: [place] Carbonate ([place] Carbonate 300 Mg Tablet) 300 mg PO BID [facility] Last Admin: 09/22/21 10:30 Dose: 300 mg Documented by: Magnesium Citrate (Magnesium Citrate 300 Ml Solution) 300 ml PO DAILY PRN PRN Reason: Constipation Last Admin: 09/22/21 10:37 Dose: 300 ml Documented by: Magnesium Hydroxide (Milk Of Magnesia 30 Ml Oral.Susp) 30 ml PO DAILY PRN PRN Reason: Constipation Last Admin: 08/31/21 20:05 Dose: 30 ml Documented by: Melatonin (Melatonin 3 Mg Tablet) 9 mg PO BEDTIME [facility] Last Admin: 09/21/21 21:16 Dose: 9 mg Documented by: Multi-Ingred Cream/Lotion/Oil/Oint (Mineral Oil/Petrolatum,White 106 Gm Tube) 1 appl TOPICAL BID [facility]; Protocol Last Admin: 09/22/21 10:56 Dose: Not Given Documented by: Multivitamins/Vitamin C (Multivitamin Tablet) 1 tab PO DAILY [facility] Last Admin: 09/22/21 10:29 Dose: 1 tab Documented by: Nicotine (Nicotine 14 Mg Patch.Td24) 14 mg TRANSDERMA DAILY [facility] Last Admin: 09/22/21 10:33 Dose: 14 mg Documented by: Nicotine Polacrilex (Nicotine Polacrilex 2 Mg Gum) 4 mg BUCCAL Q1H PRN PRN Reason: Nicotine Cravings Last Admin: 09/22/21 14:30 Dose: 4 mg Documented by: Psyllium Hydrophilic Mucilloid (Psyllium Seed 3.4 Gm Powd.Pack) 3.4 gm PO DAILY [facility] Last Admin: 09/22/21 10:32 Dose: Not Given Documented by: Quetiapine Fumarate (Quetiapine Fumarate 200 Mg Tablet) 200 mg PO Q6H PRN PRN Reason: anxiety/restlessness Last Admin: 09/21/21 02:38 Dose: 200 mg Documented by: Quetiapine Fumarate (Quetiapine Fumarate 100 Mg Tablet) 100 mg PO DAILY [facility] Last Admin: 09/22/21 10:30 Dose: 100 mg Documented by: Quetiapine Fumarate (Quetiapine Fumarate 300 Mg Tablet) 600 mg PO BEDTIME [facility] Last Admin: 09/21/21 21:16 Dose: 600 mg Documented by: Ropinirole HCl (Ropinirole Hcl 1 Mg Tablet) 2 mg PO 1900 [facility] Last Admin: 09/21/21 19:21 Dose: 2 mg Documented by: Ropinirole HCl (Ropinirole Hcl 0.5 Mg Tablet) 0.5 mg PO 0800 [facility] Last Admin: 09/22/21 10:30 Dose: 0.5 mg Documented by: Senna/Docusate Sodium (Sennosides/Docusate Sodium Tablet) 1 tab PO BID [facility] Last Admin: 09/22/21 10:30 Dose: 1 tab Documented by: Simethicone (Simethicone 80 Mg Tab.Chew) 80 mg PO QIDWMHS PRN PRN Reason: indigestion Sodium Chloride (Sodium Chloride 0.65 % Nasal 44 Ml Sprbtl) 1 spray NOSTRIL-B Q1H PRN PRN Reason: congestion Last Admin: 09/21/21 17:50 Dose: 1 spray Documented by: Trolamine Salicylate/Aloe Vera (Trolamine Salicylate 10%/Aloe Cream 35.4 Gm) 1 appl TOPICAL TID PRN PRN Reason: sciatica Last Admin: 09/03/21 05:27 Dose: 1 appl Documented by: Ziprasidone (Ziprasidone 20 Mg Capsule) 20 mg PO BID PRN PRN Reason: psychosis Allergies Allergies Allergy/AdvReac Type Severity Reaction Status Date / Time aripiprazole [From Allergy Unknown Involuntary Verified 08/19/21 07:20 Abilify] Spasms chlorpromazine Allergy Unknown Nausea and Verified 08/19/21 07:20 [From Thorazine] Vomiting haloperidol [From Allergy Unknown Involuntary Verified 08/19/21 07:20 Haldol] Spasms olanzapine [From Allergy Unknown Involuntary Verified 08/19/21 07:20 Zyprexa] Spasms paliperidone [From Allergy Unknown Hallucinati Verified 08/19/21 07:20 Invega] ons risperidone Allergy Unknown Involuntary Verified 08/19/21 07:20 Spasms Assessment & Plan Assessment & Plan (1) Schizoaffective disorder, bipolar type: Status: Acute Code(s): F25.0 - Schizoaffective disorder, bipolar type Assessment and Plan: 09/18/21- Continue current plan Discharge planning. (2) Lumbar radiculopathy: Status: Acute Code(s): M54.16 - Radiculopathy, lumbar region (3) Hip pain, left: Status: Acute Code(s): M25.552 - Pain in left hip Plan 09/20/21- Improving. Transition planning with [facility]. Pt is looking at discharge to a rest home and transitioning to [facility] services in [facility]. No medication changes today. 09/21: stable on current medications. on seroquel and lithium, c/o of hip pain on ibuprofen with partial response. no behavioral concerns. no overt delusional content nor psychosis noted. 09/22/21: Continue plan of care. I spent 20 minutes with the patient and/or on the patient floor today, greater than?50% of which was spent counseling/coordinating care. Patient educated on: other Informed Consent: understands and further education needed Reason for contiued inpatient stay Substantial Risk for: inability to function and rapid decompensation
[2021-09-22] MEDS: QUEtiapine Fumarate 300 MG TABLET 600 MG PO (19:41)
[2021-09-22] MEDS: Melatonin 3 MG TABLET 9 MG PO (19:42)
[2021-09-22] MEDS: cloNIDine HCL 0.1 MG TABLET PO (19:43)
[2021-09-22] MEDS: hydrOXYzine HCL 25 MG TABLET PO ×2 (19:43→23:48)
[2021-09-22] MEDS: Sodium Chloride 0.65 % Nasal 44 ML SPRBTL 1 SPRAY NOSTRIL-B (19:54)
[2021-09-22] MEDS: Mineral Oil/Petrolatum,White 106 GM Tube 1 APPL TOPICAL (19:54)
[2021-09-22] MEDS: diphenhydrAMINE HCL 25 MG TABLET 50 MG PO (23:48)
[2021-09-23 06:00] VITALS: BP 118/84; PULSE 80; RESP 16; O2SAT 97
[2021-09-23] MEDS: Nicotine Polacrilex 2 MG GUM 4 MG BUCCAL ×3 (09:27→20:37)
[2021-09-23] MEDS: Nicotine 14 MG PATCH.TD24 TRANSDERMA (09:27)
[2021-09-23] MEDS: amLODIPine Besylate 2.5 MG TABLET PO (09:28)
[2021-09-23] MEDS: rOPINIRole HCL 0.5 MG TABLET PO (09:28)
[2021-09-23] MEDS: Cyanocobalamin (Vitamin B-12) 100 MCG TABLET PO (09:28)
[2021-09-23] MEDS: Multivitamin TABLET 1 TAB PO (09:28)
[2021-09-23] MEDS: QUEtiapine Fumarate 100 MG TABLET PO (09:28)
[2021-09-23] MEDS: Gabapentin 400 MG CAPSULE 800 MG PO ×3 (09:28→19:07)
[2021-09-23] MEDS: Ibuprofen 800 MG TABLET PO ×2 (09:28→20:35)
[2021-09-23] MEDS: Sennosides/Docusate Sodium TABLET 1 TAB PO ×2 (09:28→19:08)
[2021-09-23] MEDS: Lithium Carbonate 300 MG TABLET PO ×2 (09:28→19:08)
[2021-09-23] MEDS: Acetaminophen 325 MG TABLET 975 MG PO (15:02)
--- NOTE | 2021-09-23 17:12 | HO.PSYCHPN ---
Subjective Subjective Date of Service: 09/23/21 Reason For Visit: Bipolar, Schizoaffective Subjective Notes: Conditional Voluntary Interim History: I am ready to see the orthopedic doctor. May I have a flu shot too? Pt reports she is feeling well, except for hip pain-she has been considering consultation but believes this means she will need to agree to surgery. She discussed her concerns that her pain in deamonic in nature and is being presented at this time as a challenge/message from Violet. We discussed pain as a symptom/indicator that intervention was needed and a consult would summarize her choices of how to address this. Discussed her perspective of pain as well, spiritual in nature. Medication Compliance: Yes Side effects from medications: No Attending Groups: Intermittent Review of Systems Acute medical concerns: No Medical Review of Systems: unchanged Review of Systems Musculoskeletal: Reports arthralgias and Reports other (hip pain) Psychiatric: Reports auditory hallucinations, Reports anhedonia and Reports hallucinations Mental Status Exam Mental Status Exam Patient Appearance: Appropriate Patient Orientation: Person, Place, Time and Situation Level of Consciousness: Alert Patient Behavior: Appropriate, Talkative, Cooperative, Distractible and Good Eye Contact Mood Description: Apprehensive Affect Description: Constricted Patient Cognition Impaired: No Ability to Follow Directions: Good Speech Pattern: Spontaneous Speech Memory Description: Episodic Impaired Hallucinations: Auditory Delusions: Being Controlled and Paranoid Ideation Perceptual Disturbances: Depersonalization and Derealization Thought Process: Distracted Depressive Symptoms: Diff. Making Decisions Judgement: Fair Diagnostics Vital Signs (24Hr): Vital Signs - 24 hr 09/23/21 06:00 Pulse Rate 80 Respiratory Rate 16 Blood Pressure 118/84 Pulse Oximetry 97 BMI result Body Mass Index 32.8 Imaging Radiology Impressions: ITS Impressions Abdomen Ultrasound 09/01/21 08:59 IMPRESSION: Slightly echogenic liver. Limited evaluation of the gallbladder as the patient has recently eaten. No gallstone seen. Limited visualization of the pancreas. Hip X-Ray 09/16/21 14:47 IMPRESSION: Moderate to severe left hip arthritis. Medications Medications Current Medications Acetaminophen (Acetaminophen 325 Mg Tablet) 975 mg PO Q6H PRN PRN Reason: Headache/Pain Mild Scale (1-3) Last Admin: 09/23/21 15:02 Dose: 975 mg Documented by: Al Hydroxide/Mg Hydroxide (Magnesium Hydrox/Alum Hydrox 30 Ml Oral.Susp) 30 ml PO Q6H PRN PRN Reason: Heartburn/Nausea Last Admin: 08/22/21 05:54 Dose: 30 ml Documented by: Amlodipine Besylate (Amlodipine Besylate 2.5 Mg Tablet) 2.5 mg PO DAILY [facility]; Protocol Last Admin: 09/23/21 09:28 Dose: 2.5 mg Documented by: Artificial Tears (Artificial Tears 15 Ml Drops) 2 drop EYE-BOTH Q4H PRN PRN Reason: Dry Eyes Last Admin: 09/21/21 17:50 Dose: 2 drop Documented by: Aspirin (Aspirin Enteric Coated 325 Mg Tablet.Dr) 650 mg PO DAILY PRN PRN Reason: headache Last Admin: 09/06/21 12:18 Dose: 650 mg Documented by: Benzocaine (Benzocaine 20 % Oral Gel 9 Gm Tube) 1 appl MUCOUS MEM QID PRN; Protocol PRN Reason: Mouth Sore Pain Last Admin: 08/31/21 03:05 Dose: 1 appl Documented by: Calcium Carbonate (Calcium Carbonate 500 Mg Tablet) 500 mg PO DAILY [facility] Last Admin: 09/23/21 09:28 Dose: 500 mg Documented by: Clonidine HCl (Clonidine Hcl 0.1 Mg Tablet) 0.1 mg PO BEDTIME [facility]; Protocol Last Admin: 09/22/21 19:43 Dose: 0.1 mg Documented by: [place] Butter/Zinc Oxide ([place] Butter/Zinc Oxide Supp.Rect) 1 supp [place] BID PRN PRN Reason: hemorrhoid pain [place] Butter/Zinc Oxide ([place] Butter/Zinc Oxide Supp.Rect) 1 supp [place] BEDTIME PRN PRN Reason: hemorrhoid pain Last Admin: 09/13/21 21:15 Dose: 1 supp Documented by: Cyanocobalamin (Cyanocobalamin (Vitamin B-12) 100 Mcg Tablet) 100 mcg PO DAILY [facility] Last Admin: 09/23/21 09:28 Dose: 100 mcg Documented by: Diphenhydramine HCl (Diphenhydramine Hcl 25 Mg Tablet) 50 mg PO Q6H PRN PRN Reason: eps Last Admin: 09/22/21 23:48 Dose: 50 mg Documented by: Gabapentin (Gabapentin 400 Mg Capsule) 800 mg PO TID [facility]A Last Admin: 09/23/21 15:02 Dose: 800 mg Documented by: Gabapentin (Gabapentin 100 Mg Capsule) 100 mg PO TID PRN PRN Reason: neuropathic pain Hydroxyzine HCl (Hydroxyzine Hcl 25 Mg Tablet) 25 mg PO BEDTIME PRN PRN Reason: Anxiety Last Admin: 09/22/21 23:48 Dose: 25 mg Documented by: Hydroxyzine HCl (Hydroxyzine Hcl 25 Mg Tablet) 25 mg PO BEDTIME [facility] Last Admin: 09/22/21 19:43 Dose: 25 mg Documented by: Ibuprofen (Ibuprofen 800 Mg Tablet) 800 mg PO Q8H PRN PRN Reason: Pain, Mild (Pain Scale 1-3) Last Admin: 09/23/21 09:28 Dose: 800 mg Documented by: Lidocaine (Lidocaine 4 % Patch Adh..Patch) 1 patch TRANSDERMA DAILY [facility]; Protocol Last Admin: 09/23/21 09:32 Dose: Not Given Documented by: Lidocaine (Lidocaine 4 % Patch Adh..Patch) 1 patch TRANSDERMA DAILY [facility]; Protocol Last Admin: 09/23/21 09:32 Dose: Not Given Documented by: [place] Carbonate ([place] Carbonate 300 Mg Tablet) 300 mg PO BID [facility] Last Admin: 09/23/21 09:28 Dose: 300 mg Documented by: Magnesium Citrate (Magnesium Citrate 300 Ml Solution) 300 ml PO DAILY PRN PRN Reason: Constipation Last Admin: 09/22/21 10:37 Dose: 300 ml Documented by: Magnesium Hydroxide (Milk Of Magnesia 30 Ml Oral.Susp) 30 ml PO DAILY PRN PRN Reason: Constipation Last Admin: 08/31/21 20:05 Dose: 30 ml Documented by: Melatonin (Melatonin 3 Mg Tablet) 9 mg PO BEDTIME [facility] Last Admin: 09/22/21 19:42 Dose: 9 mg Documented by: Multi-Ingred Cream/Lotion/Oil/Oint (Mineral Oil/Petrolatum,White 106 Gm Tube) 1 appl TOPICAL BID [facility]; Protocol Last Admin: 09/23/21 09:33 Dose: Not Given Documented by: Multivitamins/Vitamin C (Multivitamin Tablet) 1 tab PO DAILY [facility] Last Admin: 09/23/21 09:28 Dose: 1 tab Documented by: Nicotine (Nicotine 14 Mg Patch.Td24) 14 mg TRANSDERMA DAILY [facility] Last Admin: 09/23/21 09:27 Dose: 14 mg Documented by: Nicotine Polacrilex (Nicotine Polacrilex 2 Mg Gum) 4 mg BUCCAL Q1H PRN PRN Reason: Nicotine Cravings Last Admin: 09/23/21 15:02 Dose: 4 mg Documented by: Psyllium Hydrophilic Mucilloid (Psyllium Seed 3.4 Gm Powd.Pack) 3.4 gm PO DAILY [facility] Last Admin: 09/23/21 09:33 Dose: 3.4 gm Documented by: Quetiapine Fumarate (Quetiapine Fumarate 200 Mg Tablet) 200 mg PO Q6H PRN PRN Reason: anxiety/restlessness Last Admin: 09/21/21 02:38 Dose: 200 mg Documented by: Quetiapine Fumarate (Quetiapine Fumarate 100 Mg Tablet) 100 mg PO DAILY [facility] Last Admin: 09/23/21 09:28 Dose: 100 mg Documented by: Quetiapine Fumarate (Quetiapine Fumarate 300 Mg Tablet) 600 mg PO BEDTIME [facility] Last Admin: 09/22/21 19:41 Dose: 600 mg Documented by: Ropinirole HCl (Ropinirole Hcl 1 Mg Tablet) 2 mg PO 1900 [facility] Last Admin: 09/23/21 07:54 Dose: Not Given Documented by: Ropinirole HCl (Ropinirole Hcl 0.5 Mg Tablet) 0.5 mg PO 0800 [facility] Last Admin: 09/23/21 09:28 Dose: 0.5 mg Documented by: Senna/Docusate Sodium (Sennosides/Docusate Sodium Tablet) 1 tab PO BID [facility] Last Admin: 09/23/21 09:28 Dose: 1 tab Documented by: Simethicone (Simethicone 80 Mg Tab.Chew) 80 mg PO QIDWMHS PRN PRN Reason: indigestion Sodium Chloride (Sodium Chloride 0.65 % Nasal 44 Ml Sprbtl) 1 spray NOSTRIL-B Q1H PRN PRN Reason: congestion Last Admin: 09/22/21 19:54 Dose: 1 spray Documented by: Trolamine Salicylate/Aloe Vera (Trolamine Salicylate 10%/Aloe Cream 35.4 Gm) 1 appl TOPICAL TID PRN PRN Reason: sciatica Last Admin: 09/03/21 05:27 Dose: 1 appl Documented by: Ziprasidone (Ziprasidone 20 Mg Capsule) 20 mg PO BID PRN PRN Reason: psychosis Allergies Allergies Allergy/AdvReac Type Severity Reaction Status Date / Time aripiprazole [From [facility]] Allergy Unknown Involuntary Verified 08/19/21 07:20 Spasms chlorpromazine Allergy Unknown Nausea and Verified 08/19/21 07:20 [From Thorazine] Vomiting haloperidol [From Haldol] Allergy Unknown Involuntary Verified 08/19/21 07:20 Spasms olanzapine [From Zyprexa] Allergy Unknown Involuntary Verified 08/19/21 07:20 Spasms paliperidone [From Invega] Allergy Unknown Hallucinati Verified 08/19/21 07:20 ons risperidone Allergy Unknown Involuntary Verified 08/19/21 07:20 Spasms Assessment & Plan Assessment & Plan (1) Schizoaffective disorder, bipolar type: Status: Acute Code(s): F25.0 - Schizoaffective disorder, bipolar type Assessment and Plan: 09/18/21- Continue current plan Discharge planning. (2) Lumbar radiculopathy: Status: Acute Code(s): M54.16 - Radiculopathy, lumbar region (3) Hip pain, left: Status: Acute Code(s): M25.552 - Pain in left hip Plan 09/20/21- Improving. Transition planning with [facility]. Pt is looking at discharge to a rest home and transitioning to [facility] services in [facility]. No medication changes today. 09/21: stable on current medications. on seroquel and lithium, c/o of hip pain on ibuprofen with partial response. no behavioral concerns. no overt delusional content nor psychosis noted. 09/22/21: Continue plan of care. 09/23/21: Ortho consult-Left hip pain Pt has requested a flu shot. Discharge planning-pt considering a rest home as a temporary placement. I spent 20 minutes with the patient and/or on the patient floor today, greater than?50% of which was spent counseling/coordinating care. Patient educated on: diagnosis, therapeutic strategies and medical condition Informed Consent: further education needed Reason for contiued inpatient stay Substantial Risk for: inability to function, rapid decompensation and med/psych decompensation
[2021-09-23 18:00] VITALS: BP 116/82; PULSE 78; RESP 18; TEMP 36.6; O2SAT 98
[2021-09-23] MEDS: QUEtiapine Fumarate 300 MG TABLET 600 MG PO (19:09)
[2021-09-23] MEDS: cloNIDine HCL 0.1 MG TABLET PO (19:09)
[2021-09-23] MEDS: hydrOXYzine HCL 25 MG TABLET PO (19:10)
[2021-09-23] MEDS: Melatonin 3 MG TABLET 9 MG PO (19:10)
[2021-09-23] MEDS: LORazepam 1 MG TABLET PO (23:41)
[2021-09-24] MEDS: Nicotine Polacrilex 2 MG GUM 4 MG BUCCAL ×3 (00:05→16:10)
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
[2021-09-24] MEDS: Nicotine 14 MG PATCH.TD24 TRANSDERMA (09:40)
[2021-09-24] MEDS: Gabapentin 400 MG CAPSULE 800 MG PO ×3 (09:41→19:28)
[2021-09-24] MEDS: rOPINIRole HCL 0.5 MG TABLET PO (09:41)
[2021-09-24] MEDS: Lithium Carbonate 300 MG TABLET PO ×2 (09:41→19:29)
[2021-09-24] MEDS: Sennosides/Docusate Sodium TABLET 1 TAB PO ×2 (09:41→19:30)
[2021-09-24] MEDS: Multivitamin TABLET 1 TAB PO (09:41)
[2021-09-24] MEDS: amLODIPine Besylate 2.5 MG TABLET PO (09:41)
[2021-09-24] MEDS: QUEtiapine Fumarate 100 MG TABLET PO (09:41)
[2021-09-24] MEDS: Cyanocobalamin (Vitamin B-12) 100 MCG TABLET PO (09:41)
[2021-09-24] MEDS: Ibuprofen 800 MG TABLET PO (11:32)
--- NOTE | 2021-09-24 12:24 | P.PNPSI_ITS ---
Subjective Subjective Date of Service: 09/24/21 Reason For Visit: Bipolar, Schizoaffective Subjective Notes: Conditional Voluntary Interim History: Pt was seen by orhto recommendation to do combination of NSAID, tylenol and to consider OP corticosteroid injection. Pt reports she is sleeping and eating well. She denies SI/HI. No overt delusional content. She ahs been mostly in bed due to hip pain. No behavioral concerns. advised to take medications for pain more regularly. Medication Compliance: Yes Side effects from medications: No Review of Systems Review of Systems CVS: No c/o chest pain, palpitations, no SOB [employer]: No c/o dizziness, headache GI: No c/o Nausea, Vomiting, diarrhea, constipation or heartburn Yes all other systems are reviewed and are negative Gastrointestinal: Reports other (hemorrhoid pain) Musculoskeletal: Reports arthralgias and Reports other (hip pain) Reports behavioral changes, Reports confusion and Reports memory loss Psychiatric: Reports no additional psychiatric complaints, Reports abnormal sleep pattern, Reports anxiety, Reports behavioral changes, Reports change in appetite, Reports confusion, Reports depression, Reports difficulty concentrating, Reports auditory hallucinations, Reports hopelessness, Reports ir ritability, Reports anhedonia, Reports memory loss, Reports mood swings, Reports paranoia, Reports visual hallucinations, Reports hallucinations, Reports homicidal ideation (denies) and Reports suicidal ideation (denies) Mental Status Exam Mental Status Exam Narrative: lert, oriented x 3. MO, casually groomed, somewhat irritable but cooperative. No overt psychomotor agitation or retardation noted. Speech clear, normal rate/rhythm/volume, spontaneous. TP: linear. TC: without overt psychosis, in pain (hip pain). SI: none HI: none VH/AH: denies. Delusions: no overt delusional content reported. Insight/judgment: improving but still limited. Diagnostics Vital Signs (24Hr): BMI result [place] 4 Body Mass Index Verdana 4 32.8 Verdana 4 Ver[place]ana 4 Imaging Radiology Impressions: ITS Impressions Abdomen Ultrasound 09/01/21 08:59 IMPRESSION: Slightly echogenic liver. Limited evaluation of the gallbladder as the patient has recently eaten. No gallstone seen. Limited visualization of the pancreas. Hip X-Ray 09/16/21 14:47 IMPRESSION: Moderate to severe left hip arthritis. Medications Medications Current Medications Acetaminophen (Acetaminophen 325 Mg Tablet) 975 mg PO Q6H PRN PRN Reason: Headache/Pain Mild Scale (1-3) Last Admin: 09/24/21 16:10 Dose: 975 mg Documented by: Al Hydroxide/Mg Hydroxide (Magnesium Hydrox/Alum Hydrox 30 Ml Oral.Susp) 30 ml PO Q6H PRN PRN Reason: Heartburn/Nausea Last Admin: 08/22/21 05:54 Dose: 30 ml Documented by: Amlodipine Besylate (Amlodipine Besylate 2.5 Mg Tablet) 2.5 mg PO DAILY YAYA; Protocol Last Admin: 09/24/21 09:41 Dose: 2.5 mg Documented by: Artificial Tears (Artificial Tears 15 Ml Drops) 2 drop EYE-BOTH Q4H PRN PRN Reason: Dry Eyes Last Admin: 09/21/21 17:50 Dose: 2 drop Documented by: Aspirin (Aspirin Enteric Coated 325 Mg Tablet.Dr) 650 mg PO DAILY PRN PRN Reason: headache Last Admin: 09/06/21 12:18 Dose: 650 mg Documented by: Benzocaine (Benzocaine 20 % Oral Gel 9 Gm Tube) 1 appl MUCOUS MEM QID PRN; Protocol PRN Reason: Mouth Sore Pain Last Admin: 08/31/21 03:05 Dose: 1 appl Documented by: Calcium Carbonate (Calcium Carbonate 500 Mg Tablet) 500 mg PO DAILY YAYA Last Admin: 09/24/21 09:41 Dose: 500 mg Documented by: Clonidine HCl (Clonidine Hcl 0.1 Mg Tablet) 0.1 mg PO BEDTIME YAYA; Protocol Last Admin: 09/23/21 19:09 Dose: 0.1 mg Documented by: [place] Butter/Zinc Oxide ([place] Butter/Zinc Oxide Supp.Rect) 1 supp [place] BID PRN PRN Reason: hemorrhoid pain [place] Butter/Zinc Oxide ([place] Butter/Zinc Oxide Supp.Rect) 1 supp MO BEDTIME PRN PRN Reason: hemorrhoid pain Last Admin: 09/13/21 21:15 Dose: 1 supp Documented by: Cyanocobalamin (Cyanocobalamin (Vitamin B-12) 100 Mcg Tablet) 100 mcg PO DAILY YAYA Last Admin: 09/24/21 09:41 Dose: 100 mcg Documented by: Diphenhydramine HCl (Diphenhydramine Hcl 25 Mg Tablet) 50 mg PO Q6H PRN PRN Reason: eps Last Admin: 09/22/21 23:48 Dose: 50 mg Documented by: Gabapentin (Gabapentin 400 Mg Capsule) 800 mg PO TID YAYA Last Admin: 09/24/21 14:26 Dose: 800 mg Documented by: Gabapentin (Gabapentin 100 Mg Capsule) 100 mg PO TID PRN PRN Reason: neuropathic pain Hydroxyzine HCl (Hydroxyzine Hcl 25 Mg Tablet) 25 mg PO BEDTIME PRN PRN Reason: Anxiety Last Admin: 09/22/21 23:48 Dose: 25 mg Documented by: Hydroxyzine HCl (Hydroxyzine Hcl 25 Mg Tablet) 25 mg PO BEDTIME YAYA Last Admin: 09/23/21 19:10 Dose: 25 mg Documented by: Ibuprofen (Ibuprofen 800 Mg Tablet) 800 mg PO Q8H PRN PRN Reason: Pain, Mild (Pain Scale 1-3) Last Admin: 09/24/21 11:32 Dose: 800 mg Documented by: Lidocaine (Lidocaine 4 % Patch Adh..Patch) 1 patch TRANSDERMA DAILY YAYA; [place] [facility] Last Admin: 09/24/21 07:46 Dose: Not Given Documented by: Lidocaine (Lidocaine 4 % Patch Adh..Patch) 1 patch TRANSDERMA DAILY YAYA; Protocol Last Admin: 09/24/21 07:46 Dose: Not Given Documented by: [place] Carbonate ([place] Carbonate 300 Mg Tablet) 300 mg PO BID YAYA Last Admin: 09/24/21 09:41 Dose: 300 mg Documented by: Lorazepam (Lorazepam 1 Mg Tablet) 1 mg PO Q8H PRN PRN Reason: agitation, anxiety Last Admin: 09/23/21 23:41 Dose: 1 mg Documented by: Magnesium Citrate (Magnesium Citrate 300 Ml Solution) 300 ml PO DAILY PRN PRN Reason: Constipation Last Admin: 09/22/21 10:37 Dose: 300 ml Documented by: Magnesium Hydroxide (Milk Of Magnesia 30 Ml Oral.Susp) 30 ml PO DAILY PRN PRN Reason: Constipation Last Admin: 08/31/21 20:05 Dose: 30 ml Documented by: Melatonin (Melatonin 3 Mg Tablet) 9 mg PO BEDTIME YAYA Last Admin: 09/23/21 19:10 Dose: 9 mg Documented by: Multi-Ingred Cream/Lotion/Oil/Oint (Mineral Oil/Petrolatum,White 106 Gm Tube) 1 appl TOPICAL BID YAYA; Protocol Last Admin: 09/24/21 07:46 Dose: Not Given Documented by: Multivitamins/Vitamin C (Multivitamin Tablet) 1 tab PO DAILY [facility] Last Admin: 09/24/21 09:41 Dose: 1 tab Documented by: Nicotine (Nicotine 14 Mg Patch.Td24) 14 mg TRANSDERMA DAILY [facility] Last Admin: 09/24/21 09:40 Dose: 14 mg Documented by: Nicotine Polacrilex (Nicotine Polacrilex 2 Mg Gum) 4 mg BUCCAL Q1H PRN PRN Reason: Nicotine Cravings Last Admin: 09/24/21 16:10 Dose: 4 mg Documented by: Psyllium Hydrophilic Mucilloid (Psyllium Seed 3.4 Gm Powd.Pack) 3.4 gm PO DAILY [facility] Last Admin: 09/24/21 09:40 Dose: 3.4 gm Documented by: Quetiapine Fumarate (Quetiapine Fumarate 200 Mg Tablet) 200 mg PO Q6H PRN PRN Reason: anxiety/restlessness Last Admin: 09/21/21 02:38 Dose: 200 mg Documented by: Quetiapine Fumarate (Quetiapine Fumarate 100 Mg Tablet) 100 mg PO DAILY [facility] Last Admin: 09/24/21 09:41 Dose: 100 mg Documented by: Quetiapine Fumarate (Quetiapine Fumarate 300 Mg Tablet) 600 mg PO BEDTIME [facility] Last Admin: 09/23/21 19:09 Dose: 600 mg Documented by: Ropinirole HCl (Ropinirole Hcl 1 Mg Tablet) 2 mg PO 1900 [facility] Last Admin: 09/23/21 20:07 Dose: Not Given Documented by: Ropinirole HCl (Ropinirole Hcl 0.5 Mg Tablet) 0.5 mg PO 0800 [facility] Last Admin: 09/24/21 09:41 Dose: 0.5 mg Documented by: Senna/Docusate Sodium (Sennosides/Docusate Sodium Tablet) 1 tab PO BID [facility] Last Admin: 09/24/21 09:41 Dose: 1 tab Documented by: Simethicone (Simethicone 80 Mg Tab.Chew) 80 mg PO QIDWMHS PRN PRN Reason: indigestion Sodium Chloride (Sodium Chloride 0.65 % Nasal 44 Ml Sprbtl) 1 spray NOSTRIL-B Q1H PRN PRN Reason: congestion Last Admin: 09/22/21 19:54 Dose: 1 spray Documented by: Trolamine Salicylate/Aloe Vera (Trolamine Salicylate 10%/Aloe Cream 35.4 Gm) 1 appl TOPICAL TID PRN PRN Reason: sciatica Last Admin: 09/03/21 05:27 Dose: 1 appl Documented by: Ziprasidone (Ziprasidone 20 Mg Capsule) 20 mg PO BID PRN PRN Reason: psychosis Allergies Allergies Allergy/AdvReac Type Severity Reaction Status Date / Time aripiprazole [From Allergy Unknown Involuntary Verified 08/19/21 07:20 Abilify] Spasms chlorpromazine Allergy Unknown Nausea and Verified 08/19/21 07:20 [From Thorazine] Vomiting haloperidol [From Allergy Unknown Involuntary Verified 08/19/21 07:20 Haldol] Spasms olanzapine [From Allergy Unknown Involuntary Verified 08/19/21 07:20 Zyprexa] Spasms paliperidone [From Allergy Unknown Hallucinati Verified 08/19/21 07:20 Invega] ons risperidone Allergy Unknown Involuntary Verified 08/19/21 07:20 Spasms Assessment & Plan Assessment & Plan (1) Schizoaffective disorder, bipolar type: Status: Acute Code(s): F25.0 - Schizoaffective disorder, bipolar type Assessment and Plan: 09/18/21- Continue current plan Discharge planning. (2) Lumbar radiculopathy: Status: Acute Code(s): M54.16 - Radiculopathy, lumbar region (3) Hip pain, left: Status: Acute Code(s): M25.552 - Pain in left hip Plan 09/20/21- Improving. Transition planning with [facility]. Pt is looking at discharge to a rest home and transitioning to [facility] services in [facility]. No medication changes today. 09/21: stable on current medications. on seroquel and lithium, c/o of hip pain on ibuprofen with partial response. no behavioral concerns. no overt delusional content nor psychosis noted. 09/22/21: Continue plan of care. 09/23/21: Ortho consult-Left hip pain Pt has requested a flu shot. Discharge planning-pt considering a rest home as a temporary placement. 2 continue per primary treatment team. I spent _25 minutes with the patient and/or on the patient floor today, greater than?50% of which was spent counseling/coordinating care. Reason for contiued inpatient stay Substantial Risk for: inability to function
[2021-09-24] MEDS: Acetaminophen 325 MG TABLET 975 MG PO (16:10)
[2021-09-24 18:00] VITALS: BP 118/81; PULSE 78; RESP 18; TEMP 36.7; O2SAT 97
[2021-09-24] MEDS: rOPINIRole HCL 1 MG TABLET 2 MG PO (19:27)
[2021-09-24] MEDS: hydrOXYzine HCL 25 MG TABLET PO (19:28)
[2021-09-24] MEDS: QUEtiapine Fumarate 300 MG TABLET 600 MG PO (19:29)
[2021-09-24] MEDS: Melatonin 3 MG TABLET 9 MG PO (19:29)
[2021-09-24] MEDS: cloNIDine HCL 0.1 MG TABLET PO (19:30)
[2021-09-25] MEDS: LORazepam 1 MG TABLET PO (02:32)
[2021-09-25] MEDS: Nicotine Polacrilex 2 MG GUM 4 MG BUCCAL ×4 (02:32→18:32)
[2021-09-25] MEDS: Nicotine 14 MG PATCH.TD24 TRANSDERMA (10:49)
[2021-09-25] MEDS: Lithium Carbonate 300 MG TABLET PO ×2 (10:50→20:51)
[2021-09-25] MEDS: Cyanocobalamin (Vitamin B-12) 100 MCG TABLET PO (10:50)
[2021-09-25] MEDS: Gabapentin 400 MG CAPSULE 800 MG PO ×3 (10:50→20:51)
[2021-09-25] MEDS: Sennosides/Docusate Sodium TABLET 1 TAB PO ×2 (10:50→20:49)
[2021-09-25] MEDS: Multivitamin TABLET 1 TAB PO (10:50)
[2021-09-25] MEDS: Ibuprofen 800 MG TABLET PO ×2 (10:50→18:32)
[2021-09-25] MEDS: QUEtiapine Fumarate 100 MG TABLET PO (10:50)
[2021-09-25] MEDS: rOPINIRole HCL 0.5 MG TABLET PO (10:50)
[2021-09-25] MEDS: amLODIPine Besylate 2.5 MG TABLET PO (10:51)
[2021-09-25 10:59] VITALS: BP 132/85; PULSE 76; RESP 16
--- NOTE | 2021-09-25 12:30 | P.PNPSI_ITS ---
Subjective Subjective Date of Service: 09/25/21 Reason For Visit: Bipolar, Schizoaffective Interim History: Patient seen and discussed with team. Per balance staff inspector, pt has been a lot more isolative, bored. Patient evaluated this morning and upon interview is found resting in bed. Says im in pain so i dont wanna wake up, and unpromted remarks Im not seeing and hearing things. Says she doesnt want med changes, denies having concerns other than back pain. In the milieu, patient is safe but isolative in behavior. Denies SI/SIB/HI upon inquiry. Denies irritability or assaultive ideation. Says she feels safe. Medication Compliance: Yes Side effects from medications: No Attending Groups: No Review of Systems Acute medical concerns: No Medical Review of Systems: unchanged Mental Status Exam Mental Status Exam Narrative: alert, oriented x 3. MO, casually groomed, somewhat irritable but cooperative. No overt psychomotor agitation or retardation noted. Speech clear, normal rate/rhythm/volume, spontaneous. TP: linear. TC: without overt psychosis, in pain (hip pain). SI: none HI: none VH/AH: denies. Delusions: no overt delusional content reported. Insight/judgment: improving but still limited. Diagnostics Vital Signs (24Hr): Vital Signs - 24 hr 09/26/21 20:50 Temperature 98.8 F Pulse Rate 87 Blood Pressure 141/81 H BMI result [place] 4 Body Mass Index [place] 4 32.8 Verdana 4 [place] 4 Imaging Radiology Impressions: ITS Impressions Abdomen Ultrasound 09/01/21 08:59 IMPRESSION: Slightly echogenic liver. Limited evaluation of the gallbladder as the patient has recently eaten. No gallstone seen. Limited visualization of the pancreas. Hip X-Ray 09/16/21 14:47 IMPRESSION: Moderate to severe left hip arthritis. Medications Medications Current Medications Acetaminophen (Acetaminophen 325 Mg Tablet) 975 mg PO Q6H PRN PRN Reason: Headache/Pain Mild Scale (1-3) Last Admin: 09/27/21 10:08 Dose: 975 mg Documented by: Al Hydroxide/Mg Hydroxide (Magnesium Hydrox/Alum Hydrox 30 Ml Oral.Susp) 30 ml PO Q6H PRN PRN Reason: Heartburn/Nausea Last Admin: 08/22/21 05:54 Dose: 30 ml Documented by: Amlodipine Besylate (Amlodipine Besylate 2.5 Mg Tablet) 2.5 mg PO DAILY [facility]; Protocol Last Admin: 09/27/21 09:10 Dose: Not Given Documented by: Artificial Tears (Artificial Tears 15 Ml Drops) 2 drop EYE-BOTH Q4H PRN PRN Reason: Dry Eyes Last Admin: 09/21/21 17:50 Dose: 2 drop Documented by: Aspirin (Aspirin Enteric Coated 325 Mg Tablet.) 650 mg PO DAILY PRN PRN Reason: headache Last Admin: 09/06/21 12:18 Dose: 650 mg Documented by: Benzocaine (Benzocaine 20 % Oral Gel 9 Gm Tube) 1 appl MUCOUS MEM QID PRN; Protocol PRN Reason: Mouth Sore Pain Last Admin: 08/31/21 03:05 Dose: 1 appl Documented by: Calcium Carbonate (Calcium Carbonate 500 Mg Tablet) 500 mg PO DAILY [facility] Last Admin: 09/27/21 09:09 Dose: 500 mg Documented by: Clonidine HCl (Clonidine Hcl 0.1 Mg Tablet) 0.1 mg PO BEDTIME [facility]; Protocol Last Admin: 09/26/21 21:00 Dose: 0.1 mg Documented by: [place] Butter/Zinc Oxide ([place] Butter/Zinc Oxide Supp.Rect) 1 supp [place] BID PRN PRN Reason: hemorrhoid pain [place] Butter/Zinc Oxide ([place] Butter/Zinc Oxide Supp.Rect) 1 supp [place] BEDTIME PRN PRN Reason: hemorrhoid pain Last Admin: 09/13/21 21:15 Dose: 1 supp Documented by: Cyanocobalamin (Cyanocobalamin (Vitamin B-12) 100 Mcg Tablet) 100 mcg PO DAILY [facility] Last Admin: 09/27/21 09:09 Dose: 100 mcg Documented by: Diclofenac Sodium (Diclofenac Sodium Delayed Rel 75 Mg Tablet.) 75 mg PO 0900,1900 [facility] Diphenhydramine HCl (Diphenhydramine Hcl 25 Mg Tablet) 50 mg PO Q6H PRN PRN Reason: eps Last Admin: 09/22/21 23:48 Dose: 50 mg Documented by: Gabapentin (Gabapentin 400 Mg Capsule) 800 mg PO TID YAYA Last Admin: 09/27/21 09:09 Dose: 800 mg Documented by: Gabapentin (Gabapentin 100 Mg Capsule) 100 mg PO TID PRN PRN Reason: neuropathic pain Last Admin: 09/26/21 17:14 Dose: 100 mg Documented by: Hydroxyzine HCl (Hydroxyzine Hcl 25 Mg Tablet) 25 mg PO BEDTIME PRN PRN Reason: Anxiety Last Admin: 09/22/21 23:48 Dose: 25 mg Documented by: Hydroxyzine HCl (Hydroxyzine Hcl 25 Mg Tablet) 25 mg PO BEDTIME YAYA Last Admin: 09/26/21 20:58 Dose: 25 mg Documented by: Lidocaine (Lidocaine 4 % Patch Adh..Patch) 1 patch TRANSDERMA DAILY [facility]; Protocol Last Admin: 09/27/21 09:14 Dose: Not Given Documented by: Lidocaine (Lidocaine 4 % Patch Adh..Patch) 1 patch TRANSDERMA DAILY [facility]; Protocol Last Admin: 09/27/21 09:14 Dose: Not Given Documented by: [place] Carbonate ([place] Carbonate 300 Mg Tablet) 300 mg PO BID YAYA Last Admin: 09/27/21 09:09 Dose: 300 mg Documented by: Lorazepam (Lorazepam 1 Mg Tablet) 1 mg PO Q8H PRN PRN Reason: agitation, anxiety Last Admin: 09/26/21 03:33 Dose: 1 mg Documented by: Magnesium Citrate (Magnesium Citrate 300 Ml Solution) 300 ml PO DAILY PRN PRN Reason: Constipation Last Admin: 09/25/21 13:00 Dose: 300 ml Documented by: Magnesium Hydroxide (Milk Of Magnesia 30 Ml Oral.Susp) 30 ml PO DAILY PRN PRN Reason: Constipation Last Admin: 08/31/21 20:05 Dose: 30 ml Documented by: Melatonin (Melatonin 3 Mg Tablet) 9 mg PO BEDTIME YAYA Last Admin: 09/26/21 20:56 Dose: 9 mg Documented by: Mirtazapine (Mirtazapine 7.5 Mg Tablet) 7.5 mg PO BEDTIME [facility] Multi-Ingred Cream/Lotion/Oil/Oint (Mineral Oil/Petrolatum,White 106 Gm Tube) 1 appl TOPICAL BID [facility]; Protocol Last Admin: 09/27/21 09:14 Dose: Not Given Documented by: Multivitamins/Vitamin C (Multivitamin Tablet) 1 tab PO DAILY [facility] Last Admin: 09/27/21 09:09 Dose: 1 tab Documented by: Nicotine (Nicotine 14 Mg Patch.Td24) 14 mg TRANSDERMA DAILY [facility] Last Admin: 09/27/21 09:14 Dose: Not Given Documented by: Nicotine Polacrilex (Nicotine Polacrilex 2 Mg Gum) 4 mg BUCCAL Q1H PRN PRN Reason: Nicotine Cravings Last Admin: 09/27/21 10:08 Dose: 4 mg Documented by: Psyllium Hydrophilic Mucilloid (Psyllium Seed 3.4 Gm Powd.Pack) 3.4 gm PO DAILY [facility] Last Admin: 09/27/21 09:10 Dose: 3.4 gm Documented by: Quetiapine Fumarate (Quetiapine Fumarate 200 Mg Tablet) 200 mg PO Q6H PRN PRN Reason: anxiety/restlessness Last Admin: 09/21/21 02:38 Dose: 200 mg Documented by: Quetiapine Fumarate (Quetiapine Fumarate 100 Mg Tablet) 100 mg PO DAILY [facility] Last Admin: 09/27/21 09:09 Dose: 100 mg Documented by: Quetiapine Fumarate (Quetiapine Fumarate 300 Mg Tablet) 600 mg PO BEDTIME [facility] Last Admin: 09/26/21 20:57 Dose: 600 mg Documented by: Ropinirole HCl (Ropinirole Hcl 1 Mg Tablet) 2 mg PO 1900 [facility] Last Admin: 09/26/21 19:14 Dose: 2 mg Documented by: Ropinirole HCl (Ropinirole Hcl 0.5 Mg Tablet) 0.5 mg PO 0800 [facility] Last Admin: 09/27/21 09:09 Dose: 0.5 mg Documented by: Senna/Docusate Sodium (Sennosides/Docusate Sodium Tablet) 1 tab PO BID [facility] Last Admin: 09/27/21 09:09 Dose: 1 tab Documented by: Simethicone (Simethicone 80 Mg Tab.Chew) 80 mg PO QIDWMHS PRN PRN Reason: indigestion Sodium Chloride (Sodium Chloride 0.65 % Nasal 44 Ml Sprbtl) 1 spray NOSTRIL-B Q1H PRN PRN Reason: congestion Last Admin: 09/22/21 19:54 Dose: 1 spray Documented by: Trolamine Salicylate/Aloe Vera (Trolamine Salicylate 10%/Aloe Cream 35.4 Gm) 1 appl TOPICAL TID PRN PRN Reason: sciatica Last Admin: 09/03/21 05:27 Dose: 1 appl Documented by: Ziprasidone (Ziprasidone 20 Mg Capsule) 20 mg PO BID PRN PRN Reason: psychosis Allergies Allergies Allergy/AdvReac Type Severity Reaction Status Date / Time aripiprazole [From Allergy Unknown Involuntary Verified 08/19/21 07:20 Abilify] Spasms chlorpromazine Allergy Unknown Nausea and Verified 08/19/21 07:20 [From Thorazine] Vomiting haloperidol [From Allergy Unknown Involuntary Verified 08/19/21 07:20 Haldol] Spasms olanzapine [From Allergy Unknown Involuntary Verified 08/19/21 07:20 Zyprexa] Spasms paliperidone [From Allergy Unknown Hallucinati Verified 08/19/21 07:20 Invega] ons risperidone Allergy Unknown Involuntary Verified 08/19/21 07:20 Spasms Assessment & Plan Assessment & Plan (1) Schizoaffective disorder, bipolar type: Status: Acute Code(s): F25.0 - Schizoaffective disorder, bipolar type Assessment and Plan: 09/18/21- Continue current plan Discharge planning. (2) Lumbar radiculopathy: Status: Acute Code(s): M54.16 - Radiculopathy, lumbar region (3) Hip pain, left: Status: Acute Code(s): M25.552 - Pain in left hip Plan 09/20/21- Improving. Transition planning with [facility]. Pt is looking at discharge to a rest home and transitioning to [facility] services in [facility]. No medication changes today. 09/21: stable on current medications. on seroquel and lithium, c/o of hip pain on ibuprofen with partial response. no behavioral concerns. no overt delusional content nor psychosis noted. 09/22/21: Continue plan of care. 09/23/21: Ortho consult-Left hip pain Pt has requested a flu shot. Discharge planning-pt considering a rest home as a temporary placement. 09/24 continue per primary treatment team. 09/25: no med changes, pt is sig less manic I spent minutes with the patient and/or on the patient floor today, greater than?50% of which was spent counseling/coordinating care. Reason for contiued inpatient stay Substantial Risk for: inability to function, rapid decompensation and med/psych decompensation
[2021-09-25] MEDS: Acetaminophen 325 MG TABLET 975 MG PO ×2 (13:00→19:38)
[2021-09-25] MEDS: Magnesium Citrate 300 ML SOLUTION PO (13:00)
[2021-09-25] MEDS: rOPINIRole HCL 1 MG TABLET 2 MG PO (19:37)
[2021-09-25 20:30] VITALS: BP 134/88; PULSE 83; TEMP 36.7
[2021-09-25] MEDS: Melatonin 3 MG TABLET 9 MG PO (20:48)
[2021-09-25] MEDS: cloNIDine HCL 0.1 MG TABLET PO (20:49)
[2021-09-25] MEDS: QUEtiapine Fumarate 300 MG TABLET 600 MG PO (20:50)
[2021-09-25] MEDS: hydrOXYzine HCL 25 MG TABLET PO (20:51)
[2021-09-26] MEDS: LORazepam 1 MG TABLET PO (03:33)
[2021-09-26] MEDS: Nicotine Polacrilex 2 MG GUM 4 MG BUCCAL ×5 (03:36→21:01)
[2021-09-26] MEDS: Nicotine 14 MG PATCH.TD24 TRANSDERMA (10:41)
[2021-09-26] MEDS: rOPINIRole HCL 0.5 MG TABLET PO (10:42)
[2021-09-26] MEDS: Sennosides/Docusate Sodium TABLET 1 TAB PO ×2 (10:42→21:00)
[2021-09-26] MEDS: amLODIPine Besylate 2.5 MG TABLET PO (10:42)
[2021-09-26] MEDS: Lithium Carbonate 300 MG TABLET PO (10:42)
[2021-09-26] MEDS: Multivitamin TABLET 1 TAB PO (10:42)
[2021-09-26] MEDS: Gabapentin 400 MG CAPSULE 800 MG PO ×3 (10:42→20:59)
[2021-09-26] MEDS: QUEtiapine Fumarate 100 MG TABLET PO (10:43)
[2021-09-26] MEDS: Ibuprofen 800 MG TABLET PO (10:43)
[2021-09-26] MEDS: Cyanocobalamin (Vitamin B-12) 100 MCG TABLET PO (10:43)
[2021-09-26 11:02] VITALS: BP 132/89; PULSE 80; RESP 16
--- NOTE | 2021-09-26 13:02 | P.PNPSI_ITS ---
Subjective Subjective Date of Service: 09/26/21 Reason For Visit: Bipolar, Schizoaffective Interim History: Patient seen and discussed with team. Patient evaluated this morning and upon interview she reports she is in pain from arthritis all over my body and that ibuprofen and tylenol are not cutting it. Says she wants to get off lithium when she leaves the hospital. Says she feels so depressed, its not even funny, all they ever worry about is getting me down for manic. Provided education on medication and bipolar, depression sx appear to be a function of chronic pain, boredom, and adjustment from coming down from [place]. Says im not sleeping good and that trazodone always helped me. In the milieu, patient is safe but more isolative in behavior. Denies SI/SIB/HI upon inquiry. Denies irritability or assaultive ideation. Says she feels safe. Medication Compliance: Yes Side effects from medications: No Attending Groups: No Review of Systems Acute medical concerns: No Medical Review of Systems: unchanged Mental Status Exam Mental Status Exam Narrative: alert, oriented x 3. MO, casually groomed, somewhat irritable but cooperative. No overt psychomotor agitation or retardation noted. Speech clear, normal rate/rhythm/volume, spontaneous. TP: linear. TC: without overt psychosis, in pain (hip pain). SI: none HI: none VH/AH: denies. Delusions: no overt delusional content reported. Insight/judgment: improving but still limited. Diagnostics Vital Signs (24Hr): Vital Signs - 24 hr 09/25/21 20:30 09/26/21 11:02 Temperature 98.1 F Pulse Rate 83 80 Respiratory Rate 16 Blood Pressure 134/88 132/89 BMI result [place] 4 Body Mass Index [place] 4 32.8 [place] 4 [place] 4 Imaging Radiology Impressions: ITS Impressions Abdomen Ultrasound 09/01/21 08:59 IMPRESSION: Slightly echogenic liver. Limited evaluation of the gallbladder as the patient has recently eaten. No gallstone seen. Limited visualization of the pancreas. Hip X-Ray 09/16/21 14:47 IMPRESSION: Moderate to severe left hip arthritis. Medications Medications Current Medications Acetaminophen (Acetaminophen 325 Mg Tablet) 975 mg PO Q6H PRN PRN Reason: Headache/Pain Mild Scale (1-3) Last Admin: 09/25/21 19:38 Dose: 975 mg Documented by: Al Hydroxide/Mg Hydroxide (Magnesium Hydrox/Alum Hydrox 30 Ml Oral.Susp) 30 ml PO Q6H PRN PRN Reason: Heartburn/Nausea Last Admin: 08/22/21 05:54 Dose: 30 ml Documented by: Amlodipine Besylate (Amlodipine Besylate 2.5 Mg Tablet) 2.5 mg PO DAILY [facility]; Protocol Last Admin: 09/26/21 10:42 Dose: 2.5 mg Documented by: Artificial Tears (Artificial Tears 15 Ml Drops) 2 drop EYE-BOTH Q4H PRN PRN Reason: Dry Eyes Last Admin: 09/21/21 17:50 Dose: 2 drop Documented by: Aspirin (Aspirin Enteric Coated 325 Mg Tablet.Dr) 650 mg PO DAILY PRN PRN Reason: headache Last Admin: 09/06/21 12:18 Dose: 650 mg Documented by: Benzocaine (Benzocaine 20 % Oral Gel 9 Gm Tube) 1 appl MUCOUS MEM QID PRN; Protocol PRN Reason: Mouth Sore Pain Last Admin: 08/31/21 03:05 Dose: 1 appl Documented by: Calcium Carbonate (Calcium Carbonate 500 Mg Tablet) 500 mg PO DAILY [facility] Last Admin: 09/26/21 10:42 Dose: 500 mg Documented by: Clonidine HCl (Clonidine Hcl 0.1 Mg Tablet) 0.1 mg PO BEDTIME [facility]; Protocol Last Admin: 09/25/21 20:49 Dose: 0.1 mg Documented by: [place] Butter/Zinc Oxide ([place] Butter/Zinc Oxide Supp.Rect) 1 supp [place] BID PRN PRN Reason: hemorrhoid pain [place] Butter/Zinc Oxide ([place] Butter/Zinc Oxide Supp.Rect) 1 supp ND BEDTIME PRN PRN Reason: hemorrhoid pain Last Admin: 09/13/21 21:15 Dose: 1 supp Documented by: Cyanocobalamin (Cyanocobalamin (Vitamin B-12) 100 Mcg Tablet) 100 mcg PO DAILY [facility] Last Admin: 09/26/21 10:43 Dose: 100 mcg Documented by: Diphenhydramine HCl (Diphenhydramine Hcl 25 Mg Tablet) 50 mg PO Q6H PRN PRN Reason: eps Last Admin: 09/22/21 23:48 Dose: 50 mg Documented by: Gabapentin (Gabapentin 400 Mg Capsule) 800 mg PO TID [facility] Last Admin: 09/26/21 10:42 Dose: 800 mg Documented by: Gabapentin (Gabapentin 100 Mg Capsule) 100 mg PO TID PRN PRN Reason: neuropathic pain Hydroxyzine HCl (Hydroxyzine Hcl 25 Mg Tablet) 25 mg PO BEDTIME PRN PRN Reason: Anxiety Last Admin: 09/22/21 23:48 Dose: 25 mg Documented by: Hydroxyzine HCl (Hydroxyzine Hcl 25 Mg Tablet) 25 mg PO BEDTIME [facility] Last Admin: 09/25/21 20:51 Dose: 25 mg Documented by: Ibuprofen (Ibuprofen 800 Mg Tablet) 800 mg PO Q8H PRN PRN Reason: Pain, Mild (Pain Scale 1-3) Last Admin: 09/26/21 10:43 Dose: 800 mg Documented by: Lidocaine (Lidocaine 4 % Patch Adh..Patch) 1 patch TRANSDERMA DAILY [facility]; Protocol Last Admin: 09/26/21 10:43 Dose: Not Given Documented by: Lidocaine (Lidocaine 4 % Patch Adh..Patch) 1 patch TRANSDERMA DAILY [facility]; Protocol Last Admin: 09/26/21 10:43 Dose: Not Given Documented by: [place] Carbonate ([place] Carbonate 300 Mg Tablet) 300 mg PO BID [facility] Last Admin: 09/26/21 10:42 Dose: 300 mg Documented by: Lorazepam (Lorazepam 1 Mg Tablet) 1 mg PO Q8H PRN PRN Reason: agitation, anxiety Last Admin: 09/26/21 03:33 Dose: 1 mg Documented by: Magnesium Citrate (Magnesium Citrate 300 Ml Solution) 300 ml PO DAILY PRN PRN Reason: Constipation Last Admin: 09/25/21 13:00 Dose: 300 ml Documented by: Magnesium Hydroxide (Milk Of Magnesia 30 Ml Oral.Susp) 30 ml PO DAILY PRN PRN Reason: Constipation Last Admin: 08/31/21 20:05 Dose: 30 ml Documented by: Melatonin (Melatonin 3 Mg Tablet) 9 mg PO BEDTIME [facility] Last Admin: 09/25/21 20:48 Dose: 9 mg Documented by: Multi-Ingred Cream/Lotion/Oil/Oint (Mineral Oil/Petrolatum,White 106 Gm Tube) 1 appl TOPICAL BID [facility]; Protocol Last Admin: 09/26/21 10:43 Dose: Not Given Documented by: Multivitamins/Vitamin C (Multivitamin Tablet) 1 tab PO DAILY [facility] Last Admin: 09/26/21 10:42 Dose: 1 tab Documented by: Nicotine (Nicotine 14 Mg Patch.Td24) 14 mg TRANSDERMA DAILY [facility] Last Admin: 09/26/21 10:41 Dose: 14 mg Documented by: Nicotine Polacrilex (Nicotine Polacrilex 2 Mg Gum) 4 mg BUCCAL Q1H PRN PRN Reason: Nicotine Cravings Last Admin: 09/26/21 10:42 Dose: 4 mg Documented by: Psyllium Hydrophilic Mucilloid (Psyllium Seed 3.4 Gm Powd.Pack) 3.4 gm PO DAILY [facility] Last Admin: 09/26/21 10:42 Dose: 3.4 gm Documented by: Quetiapine Fumarate (Quetiapine Fumarate 200 Mg Tablet) 200 mg PO Q6H PRN PRN Reason: anxiety/restlessness Last Admin: 09/21/21 02:38 Dose: 200 mg Documented by: Quetiapine Fumarate (Quetiapine Fumarate 100 Mg Tablet) 100 mg PO DAILY [facility] Last Admin: 09/26/21 10:43 Dose: 100 mg Documented by: Quetiapine Fumarate (Quetiapine Fumarate 300 Mg Tablet) 600 mg PO BEDTIME [facility] Last Admin: 09/25/21 20:50 Dose: 600 mg Documented by: Ropinirole HCl (Ropinirole Hcl 1 Mg Tablet) 2 mg PO 1900 [facility] Last Admin: 09/25/21 19:37 Dose: 2 mg Documented by: Ropinirole HCl (Ropinirole Hcl 0.5 Mg Tablet) 0.5 mg PO 0800 [facility] Last Admin: 09/26/21 10:42 Dose: 0.5 mg Documented by: Senna/Docusate Sodium (Sennosides/Docusate Sodium Tablet) 1 tab PO BID [facility] Last Admin: 09/26/21 10:42 Dose: 1 tab Documented by: Simethicone (Simethicone 80 Mg Tab.Chew) 80 mg PO QIDWMHS PRN PRN Reason: indigestion Sodium Chloride (Sodium Chloride 0.65 % Nasal 44 Ml Sprbtl) 1 spray NOSTRIL-B Q1H PRN PRN Reason: congestion Last Admin: 09/22/21 19:54 Dose: 1 spray Documented by: Trolamine Salicylate/Aloe Vera (Trolamine Salicylate 10%/Aloe Cream 35.4 Gm) 1 appl TOPICAL TID PRN PRN Reason: sciatica Last Admin: 09/03/21 05:27 Dose: 1 appl Documented by: Ziprasidone (Ziprasidone 20 Mg Capsule) 20 mg PO BID PRN PRN Reason: psychosis Allergies Allergies Allergy/AdvReac Type Severity Reaction Status Date / Time aripiprazole [From Allergy Unknown Involuntary Verified 08/19/21 07:20 Abilify] Spasms chlorpromazine Allergy Unknown Nausea and Verified 08/19/21 07:20 [From Thorazine] Vomiting haloperidol [From Allergy Unknown Involuntary Verified 08/19/21 07:20 Haldol] Spasms olanzapine [From Allergy Unknown Involuntary Verified 08/19/21 07:20 Zyprexa] Spasms paliperidone [From Allergy Unknown Hallucinati Verified 08/19/21 07:20 Invega] ons risperidone Allergy Unknown Involuntary Verified 08/19/21 07:20 Spasms Assessment & Plan Assessment & Plan (1) Schizoaffective disorder, bipolar type: Status: Acute Code(s): F25.0 - Schizoaffective disorder, bipolar type Assessment and Plan: 09/18/21- Continue current plan Discharge planning. (2) Lumbar radiculopathy: Status: Acute Code(s): M54.16 - Radiculopathy, lumbar region (3) Hip pain, left: Status: Acute Code(s): M25.552 - Pain in left hip Plan 09/20/21- Improving. Transition planning with [facility]. Pt is looking at discharge to a rest home and transitioning to [facility] services in [facility]. No medication changes today. 2: stable on current medications. on seroquel and lithium, c/o of hip pain on ibuprofen with partial response. no behavioral concerns. no overt delusional content nor psychosis noted. 09/22/21: Continue plan of care. 09/23/21: Ortho consult-Left hip pain Pt has requested a flu shot. Discharge planning-pt considering a rest home as a temporary placement. 09/24 continue per primary treatment team. 09/25: no med changes, pt is sig less manic 09/26: start trazodone 50 mg QHS PRN for sleep. Will trial diclofenac for arthritis pain I spent minutes with the patient and/or on the patient floor today, greater than?50% of which was spent counseling/coordinating care. Reason for contiued inpatient stay Substantial Risk for: inability to function, rapid decompensation and med/psych decompensation
[2021-09-26] MEDS: Acetaminophen 325 MG TABLET 975 MG PO (14:43)
[2021-09-26] MEDS: Gabapentin 100 MG CAPSULE PO (17:14)
[2021-09-26] MEDS: rOPINIRole HCL 1 MG TABLET 2 MG PO (19:14)
[2021-09-26 20:50] VITALS: BP 141/81; PULSE 87; TEMP 37.1
[2021-09-26] MEDS: Melatonin 3 MG TABLET 9 MG PO (20:56)
[2021-09-26] MEDS: Diclofenac Sodium Delayed Rel 75 MG TABLET.DR PO (20:56)
[2021-09-26] MEDS: QUEtiapine Fumarate 300 MG TABLET 600 MG PO (20:57)
[2021-09-26] MEDS: hydrOXYzine HCL 25 MG TABLET PO (20:58)
[2021-09-26] MEDS: cloNIDine HCL 0.1 MG TABLET PO (21:00)
[2021-09-27] MEDS: Nicotine Polacrilex 2 MG GUM 4 MG BUCCAL ×5 (09:08→19:51)
[2021-09-27] MEDS: Gabapentin 400 MG CAPSULE 800 MG PO ×3 (09:09→21:39)
[2021-09-27] MEDS: Multivitamin TABLET 1 TAB PO (09:09)
[2021-09-27] MEDS: QUEtiapine Fumarate 100 MG TABLET PO (09:09)
[2021-09-27] MEDS: Diclofenac Sodium Delayed Rel 75 MG TABLET.DR PO ×2 (09:09→19:50)
[2021-09-27] MEDS: rOPINIRole HCL 0.5 MG TABLET PO (09:09)
[2021-09-27] MEDS: Sennosides/Docusate Sodium TABLET 1 TAB PO ×2 (09:09→21:37)
[2021-09-27] MEDS: Cyanocobalamin (Vitamin B-12) 100 MCG TABLET PO (09:09)
[2021-09-27] MEDS: Lithium Carbonate 300 MG TABLET PO (09:09)
[2021-09-27] MEDS: Acetaminophen 325 MG TABLET 975 MG PO (10:08)
--- NOTE | 2021-09-27 15:29 | P.PNPSI_ITS ---
Subjective Subjective Date of Service: 09/27/21 Reason For Visit: Bipolar, Schizoaffective Subjective Notes: Conditional Voluntary Interim History: Pt reports pain at multiple sites-fibromyalgia target sites. Continues with ambivalence around lithium-believes it causes her to gain weight-discussion of other options-she will consider. Review of ortho consult and recommendations. Pt tolerating pain medications. Discussed her concerns with her provider group and transitioning to this area. Medication Compliance: Yes Side effects from medications: Yes (weight gain from [place]) Attending Groups: Intermittent Review of Systems Acute medical concerns: No Medical Review of Systems: unchanged Review of Systems Musculoskeletal: Reports back pain, Reports myalgias, Reports arthralgias and Reports stiffness Reports behavioral changes Psychiatric: Reports anxiety, Reports behavioral changes and Reports anhedonia Mental Status Exam Mental Status Exam Patient Appearance: Appropriate Patient Orientation: Person, Place, Time and Situation Level of Consciousness: Alert Patient Behavior: Appropriate, Talkative, Cooperative and Good Eye Contact Mood Description: Apprehensive Affect Description: Constricted Patient Cognition Impaired: No Ability to Follow Directions: Good Speech Pattern: Clear and Spontaneous Speech Memory Description: Intact Hallucinations: Auditory Delusions: Paranoid Ideation Perceptual Disturbances: Depersonalization and Derealization Thought Process: Goal Oriented Thought Content: positive for Goal Oriented and positive for Suicidal Ideation (denies) Depressive Symptoms: Low Self Esteem Judgement: Good Diagnostics Vital Signs (24Hr): Vital Signs - 24 hr 09/26/21 20:50 Temperature 98.8 F Pulse Rate 87 Blood Pressure 141/81 H BMI result Body Mass Index 32.8 Imaging Radiology Impressions: ITS Impressions Abdomen Ultrasound 09/01/21 08:59 IMPRESSION: Slightly echogenic liver. Limited evaluation of the gallbladder as the patient has recently eaten. No gallstone seen. Limited visualization of the pancreas. Hip X-Ray 09/16/21 14:47 IMPRESSION: Moderate to severe left hip arthritis. Medications Medications Current Medications Acetaminophen (Acetaminophen 325 Mg Tablet) 975 mg PO Q6H PRN PRN Reason: Headache/Pain Mild Scale (1-3) Last Admin: 09/27/21 10:08 Dose: 975 mg Documented by: Al Hydroxide/Mg Hydroxide (Magnesium Hydrox/Alum Hydrox 30 Ml Oral.Susp) 30 ml PO Q6H PRN PRN Reason: Heartburn/Nausea Last Admin: 08/22/21 05:54 Dose: 30 ml Documented by: Amlodipine Besylate (Amlodipine Besylate 2.5 Mg Tablet) 2.5 mg PO DAILY [facility]; Protocol Last Admin: 09/27/21 09:10 Dose: Not Given Documented by: Artificial Tears (Artificial Tears 15 Ml Drops) 2 drop EYE-BOTH Q4H PRN PRN Reason: Dry Eyes Last Admin: 09/21/21 17:50 Dose: 2 drop Documented by: Aspirin (Aspirin Enteric Coated 325 Mg Tablet.) 650 mg PO DAILY PRN PRN Reason: headache Last Admin: 09/06/21 12:18 Dose: 650 mg Documented by: Benzocaine (Benzocaine 20 % Oral Gel 9 Gm Tube) 1 appl MUCOUS MEM QID PRN; Protocol PRN Reason: Mouth Sore Pain Last Admin: 08/31/21 03:05 Dose: 1 appl Documented by: Calcium Carbonate (Calcium Carbonate 500 Mg Tablet) 500 mg PO DAILY [facility] Last Admin: 09/27/21 09:09 Dose: 500 mg Documented by: Clonidine HCl (Clonidine Hcl 0.1 Mg Tablet) 0.1 mg PO BEDTIME [facility]; Protocol Last Admin: 09/26/21 21:00 Dose: 0.1 mg Documented by: [place] Butter/Zinc Oxide ([place] Butter/Zinc Oxide Supp.Rect) 1 supp [place] BID PRN PRN Reason: hemorrhoid pain [place] Butter/Zinc Oxide ([place] Butter/Zinc Oxide Supp.Rect) 1 supp [place] BEDTIME PRN PRN Reason: hemorrhoid pain Last Admin: 09/13/21 21:15 Dose: 1 supp Documented by: Cyanocobalamin (Cyanocobalamin (Vitamin B-12) 100 Mcg Tablet) 100 mcg PO DAILY [facility] Last Admin: 09/27/21 09:09 Dose: 100 mcg Documented by: Diclofenac Sodium (Diclofenac Sodium Delayed Rel 75 Mg Tablet.) 75 mg PO 0900,1900 [facility] Diphenhydramine HCl (Diphenhydramine Hcl 25 Mg Tablet) 50 mg PO Q6H PRN PRN Reason: eps Last Admin: 09/22/21 23:48 Dose: 50 mg Documented by: Gabapentin (Gabapentin 400 Mg Capsule) 800 mg PO TID [facility] Last Admin: 09/27/21 14:48 Dose: 800 mg Documented by: Gabapentin (Gabapentin 100 Mg Capsule) 100 mg PO TID PRN PRN Reason: neuropathic pain Last Admin: 09/26/21 17:14 Dose: 100 mg Documented by: Hydroxyzine HCl (Hydroxyzine Hcl 25 Mg Tablet) 25 mg PO BEDTIME PRN PRN Reason: Anxiety Last Admin: 09/22/21 23:48 Dose: 25 mg Documented by: Hydroxyzine HCl (Hydroxyzine Hcl 25 Mg Tablet) 25 mg PO BEDTIME [facility] Last Admin: 09/26/21 20:58 Dose: 25 mg Documented by: Lidocaine (Lidocaine 4 % Patch Adh..Patch) 1 patch TRANSDERMA DAILY [facility]; Protocol Last Admin: 09/27/21 09:14 Dose: Not Given Documented by: Lidocaine (Lidocaine 4 % Patch Adh..Patch) 1 patch TRANSDERMA DAILY [facility]; Protocol Last Admin: 09/27/21 09:14 Dose: Not Given Documented by: [place] Carbonate ([place] Carbonate 300 Mg Tablet) 300 mg PO BID [facility] Last Admin: 09/27/21 09:09 Dose: 300 mg Documented by: Lorazepam (Lorazepam 1 Mg Tablet) 1 mg PO Q8H PRN PRN Reason: agitation, anxiety Last Admin: 09/26/21 03:33 Dose: 1 mg Documented by: Magnesium Citrate (Magnesium Citrate 300 Ml Solution) 300 ml PO DAILY PRN PRN Reason: Constipation Last Admin: 09/25/21 13:00 Dose: 300 ml Documented by: Magnesium Hydroxide (Milk Of Magnesia 30 Ml Oral.Susp) 30 ml PO DAILY PRN PRN Reason: Constipation Last Admin: 08/31/21 20:05 Dose: 30 ml Documented by: Melatonin (Melatonin 3 Mg Tablet) 9 mg PO BEDTIME [facility] Last Admin: 09/26/21 20:56 Dose: 9 mg Documented by: Mirtazapine (Mirtazapine 7.5 Mg Tablet) 7.5 mg PO BEDTIME [facility] Multi-Ingred Cream/Lotion/Oil/Oint (Mineral Oil/Petrolatum,White 106 Gm Tube) 1 appl TOPICAL BID [facility]; Protocol Last Admin: 09/27/21 09:14 Dose: Not Given Documented by: Multivitamins/Vitamin C (Multivitamin Tablet) 1 tab PO DAILY [facility] Last Admin: 09/27/21 09:09 Dose: 1 tab Documented by: Nicotine (Nicotine 14 Mg Patch.Td24) 14 mg TRANSDERMA DAILY [facility] Last Admin: 09/27/21 09:14 Dose: Not Given Documented by: Nicotine Polacrilex (Nicotine Polacrilex 2 Mg Gum) 4 mg BUCCAL Q1H PRN PRN Reason: Nicotine Cravings Last Admin: 09/27/21 14:50 Dose: 4 mg Documented by: Psyllium Hydrophilic Mucilloid (Psyllium Seed 3.4 Gm Powd.Pack) 3.4 gm PO DAILY [facility] Last Admin: 09/27/21 09:10 Dose: 3.4 gm Documented by: Quetiapine Fumarate (Quetiapine Fumarate 200 Mg Tablet) 200 mg PO Q6H PRN PRN Reason: anxiety/restlessness Last Admin: 09/21/21 02:38 Dose: 200 mg Documented by: Quetiapine Fumarate (Quetiapine Fumarate 100 Mg Tablet) 100 mg PO DAILY [facility] Last Admin: 09/27/21 09:09 Dose: 100 mg Documented by: Quetiapine Fumarate (Quetiapine Fumarate 300 Mg Tablet) 600 mg PO BEDTIME [facility] Last Admin: 09/26/21 20:57 Dose: 600 mg Documented by: Ropinirole HCl (Ropinirole Hcl 1 Mg Tablet) 2 mg PO 1900 [facility] Last Admin: 09/26/21 19:14 Dose: 2 mg Documented by: Ropinirole HCl (Ropinirole Hcl 0.5 Mg Tablet) 0.5 mg PO 0800 [facility] Last Admin: 09/27/21 09:09 Dose: 0.5 mg Documented by: Senna/Docusate Sodium (Sennosides/Docusate Sodium Tablet) 1 tab PO BID [facility] Last Admin: 09/27/21 09:09 Dose: 1 tab Documented by: Simethicone (Simethicone 80 Mg Tab.Chew) 80 mg PO QIDWMHS PRN PRN Reason: indigestion Sodium Chloride (Sodium Chloride 0.65 % Nasal 44 Ml Sprbtl) 1 spray NOSTRIL-B Q1H PRN PRN Reason: congestion Last Admin: 09/22/21 19:54 Dose: 1 spray Documented by: Trolamine Salicylate/Aloe Vera (Trolamine Salicylate 10%/Aloe Cream 35.4 Gm) 1 appl TOPICAL TID PRN PRN Reason: sciatica Last Admin: 09/03/21 05:27 Dose: 1 appl Documented by: Ziprasidone (Ziprasidone 20 Mg Capsule) 20 mg PO BID PRN PRN Reason: psychosis Allergies Allergies Allergy/AdvReac Type Severity Reaction Status Date / Time aripiprazole [From Abilify] Allergy Unknown Involuntary Verified 08/19/21 07:20 Spasms chlorpromazine Allergy Unknown Nausea and Verified 08/19/21 07:20 [From Thorazine] Vomiting haloperidol [From Haldol] Allergy Unknown Involuntary Verified 08/19/21 07:20 Spasms olanzapine [From Zyprexa] Allergy Unknown Involuntary Verified 08/19/21 07:20 Spasms paliperidone [From Invega] Allergy Unknown Hallucinati Verified 08/19/21 07:20 ons risperidone Allergy Unknown Involuntary Verified 08/19/21 07:20 Spasms Assessment & Plan Assessment & Plan (1) Schizoaffective disorder, bipolar type: Status: Acute Code(s): F25.0 - Schizoaffective disorder, bipolar type Assessment and Plan: 09/18/21- Continue current plan Discharge planning. (2) Lumbar radiculopathy: Status: Acute Code(s): M54.16 - Radiculopathy, lumbar region (3) Hip pain, left: Status: Acute Code(s): M25.552 - Pain in left hip Plan 09/20/21- Improving. Transition planning with [facility]. Pt is looking at discharge to a rest home and transitioning to [facility] services in [facility]. No medication changes today. 09/21: stable on current medications. on seroquel and lithium, c/o of hip pain on ibuprofen with partial response. no behavioral concerns. no overt delusional content nor psychosis noted. 09/22/21: Continue plan of care. 09/23/21: Ortho consult-Left hip pain Pt has requested a flu shot. Discharge planning-pt considering a rest home as a temporary placement. 09/24 continue per primary treatment team. 09/25: no med changes, pt is sig less manic 09/27/21: Continue plan of care. Transitioning from [facility] of [facility] to local office. I spent minutes with the patient and/or on the patient floor today, greater than?50% of which was spent counseling/coordinating care. Patient educated on: therapeutic strategies Informed Consent: understands and further education needed Reason for contiued inpatient stay Substantial Risk for: harm to self, harm to others, inability to function, rapid decompensation and med/psych decompensation
[2021-09-27] MEDS: rOPINIRole HCL 1 MG TABLET 2 MG PO (19:51)
[2021-09-27 21:10] VITALS: BP 117/70; PULSE 82; TEMP 36.4
[2021-09-27] MEDS: hydrOXYzine HCL 25 MG TABLET PO (21:36)
[2021-09-27] MEDS: cloNIDine HCL 0.1 MG TABLET PO (21:37)
[2021-09-27] MEDS: Mirtazapine 7.5 MG TABLET PO (21:38)
[2021-09-27] MEDS: Melatonin 3 MG TABLET 9 MG PO (21:38)
[2021-09-27] MEDS: QUEtiapine Fumarate 300 MG TABLET 600 MG PO (21:38)
[2021-09-28] MEDS: LORazepam 1 MG TABLET PO ×2 (00:55→22:53)
[2021-09-28] MEDS: Nicotine Polacrilex 2 MG GUM 4 MG BUCCAL ×3 (00:59→13:30)
[2021-09-28 06:00] VITALS: BP 96/55; PULSE 75; RESP 14; TEMP 36.2; O2SAT 97
[2021-09-28] MEDS: rOPINIRole HCL 0.5 MG TABLET PO (09:12)
[2021-09-28] MEDS: Lithium Carbonate 300 MG TABLET PO ×2 (09:12→19:50)
[2021-09-28] MEDS: Cyanocobalamin (Vitamin B-12) 100 MCG TABLET PO (09:12)
[2021-09-28] MEDS: Gabapentin 400 MG CAPSULE 800 MG PO ×3 (09:12→19:50)
[2021-09-28] MEDS: amLODIPine Besylate 2.5 MG TABLET PO (09:12)
[2021-09-28] MEDS: Sennosides/Docusate Sodium TABLET 1 TAB PO ×2 (09:12→19:50)
[2021-09-28] MEDS: Multivitamin TABLET 1 TAB PO (09:12)
[2021-09-28] MEDS: Diclofenac Sodium Delayed Rel 75 MG TABLET.DR PO ×2 (09:16→18:53)
[2021-09-28] MEDS: QUEtiapine Fumarate 100 MG TABLET PO (09:22)
[2021-09-28] MEDS: Magnesium Citrate 300 ML SOLUTION PO (14:11)
[2021-09-28] MEDS: Nicotine 14 MG PATCH.TD24 TRANSDERMA (14:16)
[2021-09-28 16:26] VITALS: BP 118/60; PULSE 89; RESP 16; TEMP 36.6; O2SAT 96
--- NOTE | 2021-09-28 16:59 | HO.PSYCHPN ---
Subjective Subjective Date of Service: 09/28/21 Reason For Visit: Bipolar, Schizoaffective Subjective Notes: Conditional Voluntary Interim History: Blanca reports she has had some pain relief with new medications. She appears to be ambulating with less distress. She discussed her ambivalence about having hip surgery, citing medication efficacy as a sign this may not be needed at this time. She reports sleep is intact, continues with intermittent body aches-believes fibromyalgia is not the issue, but inactivity and lack of stretching. Denies SI, AH, VH. Discussed her rejection from a local rest home today due to her history of substance use. Expressed sadness and frustration. Medication Compliance: Yes Side effects from medications: No Attending Groups: Yes Review of Systems Acute medical concerns: No Medical Review of Systems: unchanged Review of Systems Musculoskeletal: Reports back pain, Reports myalgias, Reports arthralgias and Reports stiffness Reports behavioral changes Psychiatric: Reports anxiety, Reports behavioral changes and Reports anhedonia Mental Status Exam Mental Status Exam Patient Appearance: Appropriate Patient Orientation: Person, Place, Time and Situation Level of Consciousness: Alert Patient Behavior: Appropriate, Talkative, Cooperative and Good Eye Contact Mood Description: Apprehensive Affect Description: Constricted Patient Cognition Impaired: No Ability to Follow Directions: Good Speech Pattern: Clear and Spontaneous Speech Memory Description: Intact Hallucinations: Auditory Delusions: Paranoid Ideation Perceptual Disturbances: Depersonalization and Derealization Thought Process: Goal Oriented Thought Content: positive for Goal Oriented and positive for Suicidal Ideation (denies) Depressive Symptoms: Low Self Esteem Judgement: Good Diagnostics Vital Signs (24Hr): Vital Signs - 24 hr 09/27/21 21:10 09/28/21 06:00 09/28/21 16:26 Temperature 97.6 F 97.2 F 97.8 F Pulse Rate 82 75 89 Respiratory Rate 14 16 Blood Pressure 117/70 96/55 L 118/60 Pulse Oximetry 97 96 BMI result Body Mass Index 32.8 Imaging Radiology Impressions: ITS Impressions Abdomen Ultrasound 09/01/21 08:59 IMPRESSION: Slightly echogenic liver. Limited evaluation of the gallbladder as the patient has recently eaten. No gallstone seen. Limited visualization of the pancreas. Hip X-Ray 09/16/21 14:47 IMPRESSION: Moderate to severe left hip arthritis. Medications Medications Current Medications Acetaminophen (Acetaminophen 325 Mg Tablet) 975 mg PO Q6H PRN PRN Reason: Headache/Pain Mild Scale (1-3) Last Admin: 09/27/21 10:08 Dose: 975 mg Documented by: Al Hydroxide/Mg Hydroxide (Magnesium Hydrox/Alum Hydrox 30 Ml Oral.Susp) 30 ml PO Q6H PRN PRN Reason: Heartburn/Nausea Last Admin: 08/22/21 05:54 Dose: 30 ml Documented by: Amlodipine Besylate (Amlodipine Besylate 2.5 Mg Tablet) 2.5 mg PO DAILY [facility]; Protocol Last Admin: 09/28/21 09:12 Dose: 2.5 mg Documented by: Artificial Tears (Artificial Tears 15 Ml Drops) 2 drop EYE-BOTH Q4H PRN PRN Reason: Dry Eyes Last Admin: 09/21/21 17:50 Dose: 2 drop Documented by: Aspirin (Aspirin Enteric Coated 325 Mg Tablet.) 650 mg PO DAILY PRN PRN Reason: headache Last Admin: 09/06/21 12:18 Dose: 650 mg Documented by: Benzocaine (Benzocaine 20 % Oral Gel 9 Gm Tube) 1 appl MUCOUS MEM QID PRN; Protocol PRN Reason: Mouth Sore Pain Last Admin: 08/31/21 03:05 Dose: 1 appl Documented by: Calcium Carbonate (Calcium Carbonate 500 Mg Tablet) 500 mg PO DAILY [facility] Last Admin: 09/28/21 09:12 Dose: 500 mg Documented by: Clonidine HCl (Clonidine Hcl 0.1 Mg Tablet) 0.1 mg PO BEDTIME [facility]; Protocol Last Admin: 09/27/21 21:37 Dose: 0.1 mg Documented by: [place] Butter/Zinc Oxide ([place] Butter/Zinc Oxide Supp.Rect) 1 supp [place] BID PRN PRN Reason: hemorrhoid pain [place] Butter/Zinc Oxide ([place] Butter/Zinc Oxide Supp.Rect) 1 supp TN BEDTIME PRN PRN Reason: hemorrhoid pain Last Admin: 09/13/21 21:15 Dose: 1 supp Documented by: Cyanocobalamin (Cyanocobalamin (Vitamin B-12) 100 Mcg Tablet) 100 mcg PO DAILY [facility] Last Admin: 09/28/21 09:12 Dose: 100 mcg Documented by: Diclofenac Sodium (Diclofenac Sodium Delayed Rel 75 Mg Tablet.) 75 mg PO 0900,1900 [facility] Last Admin: 09/28/21 09:16 Dose: 75 mg Documented by: Diphenhydramine HCl (Diphenhydramine Hcl 25 Mg Tablet) 50 mg PO Q6H PRN PRN Reason: eps Last Admin: 09/22/21 23:48 Dose: 50 mg Documented by: Gabapentin (Gabapentin 400 Mg Capsule) 800 mg PO TID [facility] Last Admin: 09/28/21 14:11 Dose: 800 mg Documented by: Gabapentin (Gabapentin 100 Mg Capsule) 100 mg PO TID PRN PRN Reason: neuropathic pain Last Admin: 09/26/21 17:14 Dose: 100 mg Documented by: Hydroxyzine HCl (Hydroxyzine Hcl 25 Mg Tablet) 25 mg PO BEDTIME PRN PRN Reason: Anxiety Last Admin: 09/22/21 23:48 Dose: 25 mg Documented by: Hydroxyzine HCl (Hydroxyzine Hcl 25 Mg Tablet) 25 mg PO BEDTIME [facility] Last Admin: 09/27/21 21:36 Dose: 25 mg Documented by: Lidocaine (Lidocaine 4 % Patch Adh..Patch) 1 patch TRANSDERMA DAILY [facility]; Protocol Last Admin: 09/28/21 09:20 Dose: Not Given Documented by: Lidocaine (Lidocaine 4 % Patch Adh..Patch) 1 patch TRANSDERMA DAILY [facility]; Protocol Last Admin: 09/28/21 09:20 Dose: Not Given Documented by: [place] Carbonate ([place] Carbonate 300 Mg Tablet) 300 mg PO BID [facility] Last Admin: 09/28/21 09:12 Dose: 300 mg Documented by: Lorazepam (Lorazepam 1 Mg Tablet) 1 mg PO Q8H PRN PRN Reason: agitation, anxiety Last Admin: 09/28/21 00:55 Dose: 1 mg Documented by: Magnesium Citrate (Magnesium Citrate 300 Ml Solution) 300 ml PO DAILY PRN PRN Reason: Constipation Last Admin: 09/28/21 14:11 Dose: 300 ml Documented by: Magnesium Hydroxide (Milk Of Magnesia 30 Ml Oral.Susp) 30 ml PO DAILY PRN PRN Reason: Constipation Last Admin: 08/31/21 20:05 Dose: 30 ml Documented by: Melatonin (Melatonin 3 Mg Tablet) 9 mg PO BEDTIME [facility] Last Admin: 09/27/21 21:38 Dose: 9 mg Documented by: Mirtazapine (Mirtazapine 7.5 Mg Tablet) 7.5 mg PO BEDTIME [facility] Last Admin: 09/27/21 21:38 Dose: 7.5 mg Documented by: Multi-Ingred Cream/Lotion/Oil/Oint (Mineral Oil/Petrolatum,White 106 Gm Tube) 1 appl TOPICAL BID [facility]; Protocol Last Admin: 09/28/21 09:20 Dose: Not Given Documented by: Multivitamins/Vitamin C (Multivitamin Tablet) 1 tab PO DAILY [facility] Last Admin: 09/28/21 09:12 Dose: 1 tab Documented by: Nicotine (Nicotine 14 Mg Patch.Td24) 14 mg TRANSDERMA DAILY [facility] Last Admin: 09/28/21 14:16 Dose: 14 mg Documented by: Nicotine Polacrilex (Nicotine Polacrilex 2 Mg Gum) 4 mg BUCCAL Q1H PRN PRN Reason: Nicotine Cravings Last Admin: 09/28/21 13:30 Dose: 4 mg Documented by: Psyllium Hydrophilic Mucilloid (Psyllium Seed 3.4 Gm Powd.Pack) 3.4 gm PO DAILY [facility] Last Admin: 09/28/21 09:20 Dose: Not Given Documented by: Quetiapine Fumarate (Quetiapine Fumarate 200 Mg Tablet) 200 mg PO Q6H PRN PRN Reason: anxiety/restlessness Last Admin: 09/21/21 02:38 Dose: 200 mg Documented by: Quetiapine Fumarate (Quetiapine Fumarate 100 Mg Tablet) 100 mg PO DAILY [facility] Last Admin: 09/28/21 09:22 Dose: 100 mg Documented by: Quetiapine Fumarate (Quetiapine Fumarate 300 Mg Tablet) 600 mg PO BEDTIME [facility] Last Admin: 09/27/21 21:38 Dose: 600 mg Documented by: Ropinirole HCl (Ropinirole Hcl 1 Mg Tablet) 2 mg PO 1900 [facility] Last Admin: 09/27/21 19:51 Dose: 2 mg Documented by: Ropinirole HCl (Ropinirole Hcl 0.5 Mg Tablet) 0.5 mg PO 0800 [facility] Last Admin: 09/28/21 09:12 Dose: 0.5 mg Documented by: Senna/Docusate Sodium (Sennosides/Docusate Sodium Tablet) 1 tab PO BID [facility] Last Admin: 09/28/21 09:12 Dose: 1 tab Documented by: Simethicone (Simethicone 80 Mg Tab.Chew) 80 mg PO QIDWMHS PRN PRN Reason: indigestion Sodium Chloride (Sodium Chloride 0.65 % Nasal 44 Ml Sprbtl) 1 spray NOSTRIL-B Q1H PRN PRN Reason: congestion Last Admin: 09/22/21 19:54 Dose: 1 spray Documented by: Trolamine Salicylate/Aloe Vera (Trolamine Salicylate 10%/Aloe Cream 35.4 Gm) 1 appl TOPICAL TID PRN PRN Reason: sciatica Last Admin: 09/03/21 05:27 Dose: 1 appl Documented by: Ziprasidone (Ziprasidone 20 Mg Capsule) 20 mg PO BID PRN PRN Reason: psychosis Allergies Allergies Allergy/AdvReac Type Severity Reaction Status Date / Time aripiprazole [From Abilify] Allergy Unknown Involuntary Verified 08/19/21 07:20 Spasms chlorpromazine Allergy Unknown Nausea and Verified 08/19/21 07:20 [From Thorazine] Vomiting haloperidol [From Haldol] Allergy Unknown Involuntary Verified 08/19/21 07:20 Spasms olanzapine [From Zyprexa] Allergy Unknown Involuntary Verified 08/19/21 07:20 Spasms paliperidone [From Invega] Allergy Unknown Hallucinati Verified 08/19/21 07:20 ons risperidone Allergy Unknown Involuntary Verified 08/19/21 07:20 Spasms Assessment & Plan Assessment & Plan (1) Schizoaffective disorder, bipolar type: Status: Acute Code(s): F25.0 - Schizoaffective disorder, bipolar type Assessment and Plan: 09/18/21- Continue current plan Discharge planning. (2) Lumbar radiculopathy: Status: Acute Code(s): M54.16 - Radiculopathy, lumbar region (3) Hip pain, left: Status: Acute Code(s): M25.552 - Pain in left hip Plan 09/20/21- Improving. Transition planning with [facility]. Pt is looking at discharge to a rest home and transitioning to [facility] services in [facility]. No medication changes today. 09/21: stable on current medications. on seroquel and lithium, c/o of hip pain on ibuprofen with partial response. no behavioral concerns. no overt delusional content nor psychosis noted. 09/22/21: Continue plan of care. 09/23/21: Ortho consult-Left hip pain Pt has requested a flu shot. Discharge planning-pt considering a rest home as a temporary placement. 09/24 continue per primary treatment team. 09/25: no med changes, pt is sig less manic 09/27/21: Continue plan of care. Transitioning from [facility] to local office. 09/28/21: Continue plan of care. Support in transition and discharge planning. Refusal of [place] discussed with Blanca. Discussed other options-she will consider. I spent 25 minutes with the patient and/or on the patient floor today, greater than?50% of which was spent counseling/coordinating care. Patient educated on: medication risk/benefits, therapeutic strategies and medical condition Informed Consent: understands and further education needed Reason for contiued inpatient stay Substantial Risk for: inability to function, rapid decompensation and med/psych decompensation
[2021-09-28] MEDS: rOPINIRole HCL 1 MG TABLET 2 MG PO (18:53)
[2021-09-28] MEDS: Mirtazapine 7.5 MG TABLET PO (19:50)
[2021-09-28] MEDS: Melatonin 3 MG TABLET 9 MG PO (19:51)
[2021-09-28] MEDS: cloNIDine HCL 0.1 MG TABLET PO (19:51)
[2021-09-28] MEDS: hydrOXYzine HCL 25 MG TABLET PO (19:51)
[2021-09-28] MEDS: QUEtiapine Fumarate 300 MG TABLET 600 MG PO (19:51)
[2021-09-29 06:00] VITALS: BP 112/73; PULSE 88; RESP 14; TEMP 36.6; O2SAT 94
[2021-09-29] MEDS: Nicotine 14 MG PATCH.TD24 TRANSDERMA (09:16)
[2021-09-29] MEDS: Multivitamin TABLET 1 TAB PO (09:17)
[2021-09-29] MEDS: QUEtiapine Fumarate 100 MG TABLET PO (09:17)
[2021-09-29] MEDS: rOPINIRole HCL 0.5 MG TABLET PO (09:17)
[2021-09-29] MEDS: Gabapentin 400 MG CAPSULE 800 MG PO ×3 (09:17→20:49)
[2021-09-29] MEDS: Cyanocobalamin (Vitamin B-12) 100 MCG TABLET PO (09:17)
[2021-09-29] MEDS: Nicotine Polacrilex 2 MG GUM 4 MG BUCCAL ×2 (09:18→11:47)
[2021-09-29] MEDS: amLODIPine Besylate 2.5 MG TABLET PO (09:18)
[2021-09-29] MEDS: Sennosides/Docusate Sodium TABLET 1 TAB PO ×2 (09:18→20:48)
[2021-09-29] MEDS: Lithium Carbonate 300 MG TABLET PO ×2 (09:18→20:49)
[2021-09-29] MEDS: Diclofenac Sodium Delayed Rel 75 MG TABLET.DR PO ×2 (09:26→18:58)
[2021-09-29] MEDS: Acetaminophen 325 MG TABLET 975 MG PO (13:35)
[2021-09-29] MEDS: Sodium Chloride 0.65 % Nasal 44 ML SPRBTL 1 SPRAY NOSTRIL-B (13:37)
--- NOTE | 2021-09-29 14:55 | HO.PSYCHPN ---
Subjective Subjective Date of Service: 09/29/21 Reason For Visit: Bipolar, Schizoaffective Subjective Notes: Conditional Voluntary Healthcare Proxy: No Guardianship: No Interim History: Patient has been significantly calmer more stable and cooperative. Was no longer aggressive hostile Medication Compliance: Yes Attending Groups: No Review of Systems Hip pain Mental Status Exam Mental Status Exam Patient Appearance: Appropriate Patient Orientation: Person, Place, Time and Situation Level of Consciousness: Alert Patient Behavior: Appropriate, Talkative, Cooperative and Good Eye Contact Mood Description: Apprehensive Affect Description: Constricted Patient Cognition Impaired: No Ability to Follow Directions: Good Speech Pattern: Clear and Spontaneous Speech Memory Description: Intact Hallucinations: Auditory Delusions: Paranoid Ideation Perceptual Disturbances: Depersonalization and Derealization Thought Process: Goal Oriented Thought Content: positive for Goal Oriented and positive for Suicidal Ideation (denies) Depressive Symptoms: Low Self Esteem Judgement: Good Diagnostics Vital Signs (24Hr): Vital Signs - 24 hr 09/28/21 16:26 09/29/21 06:00 Temperature 97.8 F 97.9 F Pulse Rate 89 88 Respiratory Rate 16 14 Blood Pressure 118/60 112/73 Pulse Oximetry 96 94 BMI result Body Mass Index 32.8 Imaging Radiology Impressions: ITS Impressions Abdomen Ultrasound 09/01/21 08:59 IMPRESSION: Slightly echogenic liver. Limited evaluation of the gallbladder as the patient has recently eaten. No gallstone seen. Limited visualization of the pancreas. Hip X-Ray 09/16/21 14:47 IMPRESSION: Moderate to severe left hip arthritis. Medications Medications Current Medications Acetaminophen (Acetaminophen 325 Mg Tablet) 975 mg PO Q6H PRN PRN Reason: Headache/Pain Mild Scale (1-3) Last Admin: 09/29/21 13:35 Dose: 975 mg Documented by: Al Hydroxide/Mg Hydroxide (Magnesium Hydrox/Alum Hydrox 30 Ml Oral.Susp) 30 ml PO Q6H PRN PRN Reason: Heartburn/Nausea Last Admin: 08/22/21 05:54 Dose: 30 ml Documented by: Amlodipine Besylate (Amlodipine Besylate 2.5 Mg Tablet) 2.5 mg PO DAILY [facility]; Protocol Last Admin: 09/29/21 09:18 Dose: 2.5 mg Documented by: Artificial Tears (Artificial Tears 15 Ml Drops) 2 drop EYE-BOTH Q4H PRN PRN Reason: Dry Eyes Last Admin: 09/21/21 17:50 Dose: 2 drop Documented by: Aspirin (Aspirin Enteric Coated 325 Mg Tablet.) 650 mg PO DAILY PRN PRN Reason: headache Last Admin: 09/06/21 12:18 Dose: 650 mg Documented by: Benzocaine (Benzocaine 20 % Oral Gel 9 Gm Tube) 1 appl MUCOUS MEM QID PRN; Protocol PRN Reason: Mouth Sore Pain Last Admin: 08/31/21 03:05 Dose: 1 appl Documented by: Calcium Carbonate (Calcium Carbonate 500 Mg Tablet) 500 mg PO DAILY [facility] Last Admin: 09/29/21 09:18 Dose: 500 mg Documented by: Clonidine HCl (Clonidine Hcl 0.1 Mg Tablet) 0.1 mg PO BEDTIME [facility]; Protocol Last Admin: 09/28/21 19:51 Dose: 0.1 mg Documented by: [place] Butter/Zinc Oxide ([place] Butter/Zinc Oxide Supp.Rect) 1 supp [place] BID PRN PRN Reason: hemorrhoid pain [place] Butter/Zinc Oxide ([place] Butter/Zinc Oxide Supp.Rect) 1 supp AR BEDTIME PRN PRN Reason: hemorrhoid pain Last Admin: 09/13/21 21:15 Dose: 1 supp Documented by: Cyanocobalamin (Cyanocobalamin (Vitamin B-12) 100 Mcg Tablet) 100 mcg PO DAILY [facility] Last Admin: 09/29/21 09:17 Dose: 100 mcg Documented by: Diclofenac Sodium (Diclofenac Sodium Delayed Rel 75 Mg Tablet.) 75 mg PO 0900,1900 [facility] Last Admin: 09/29/21 09:26 Dose: 75 mg Documented by: Diphenhydramine HCl (Diphenhydramine Hcl 25 Mg Tablet) 50 mg PO Q6H PRN PRN Reason: eps Last Admin: 09/22/21 23:48 Dose: 50 mg Documented by: Gabapentin (Gabapentin 400 Mg Capsule) 800 mg PO TID [facility] Last Admin: 09/29/21 14:42 Dose: 800 mg Documented by: Gabapentin (Gabapentin 100 Mg Capsule) 100 mg PO TID PRN PRN Reason: neuropathic pain Last Admin: 09/26/21 17:14 Dose: 100 mg Documented by: Hydroxyzine HCl (Hydroxyzine Hcl 25 Mg Tablet) 25 mg PO BEDTIME PRN PRN Reason: Anxiety Last Admin: 09/22/21 23:48 Dose: 25 mg Documented by: Hydroxyzine HCl (Hydroxyzine Hcl 25 Mg Tablet) 25 mg PO BEDTIME [facility] Last Admin: 09/28/21 19:51 Dose: 25 mg Documented by: Lidocaine (Lidocaine 4 % Patch Adh..Patch) 1 patch TRANSDERMA DAILY [facility]; Protocol Last Admin: 09/29/21 09:19 Dose: Not Given Documented by: Lidocaine (Lidocaine 4 % Patch Adh..Patch) 1 patch TRANSDERMA DAILY [facility]; Protocol Last Admin: 09/29/21 09:19 Dose: Not Given Documented by: [place] Carbonate ([place] Carbonate 300 Mg Tablet) 300 mg PO BID [facility] Last Admin: 09/29/21 09:18 Dose: 300 mg Documented by: Lorazepam (Lorazepam 1 Mg Tablet) 1 mg PO Q8H PRN PRN Reason: agitation, anxiety Last Admin: 09/28/21 22:53 Dose: 1 mg Documented by: Magnesium Citrate (Magnesium Citrate 300 Ml Solution) 300 ml PO DAILY PRN PRN Reason: Constipation Last Admin: 09/28/21 14:11 Dose: 300 ml Documented by: Magnesium Hydroxide (Milk Of Magnesia 30 Ml Oral.Susp) 30 ml PO DAILY PRN PRN Reason: Constipation Last Admin: 08/31/21 20:05 Dose: 30 ml Documented by: Melatonin (Melatonin 3 Mg Tablet) 9 mg PO BEDTIME [facility] Last Admin: 09/28/21 19:51 Dose: 9 mg Documented by: Mirtazapine (Mirtazapine 7.5 Mg Tablet) 7.5 mg PO BEDTIME [facility] Last Admin: 09/28/21 19:50 Dose: 7.5 mg Documented by: Multi-Ingred Cream/Lotion/Oil/Oint (Mineral Oil/Petrolatum,White 106 Gm Tube) 1 appl TOPICAL BID [facility]; Protocol Last Admin: 09/29/21 09:19 Dose: Not Given Documented by: Multivitamins/Vitamin C (Multivitamin Tablet) 1 tab PO DAILY [facility] Last Admin: 09/29/21 09:17 Dose: 1 tab Documented by: Nicotine (Nicotine 14 Mg Patch.Td24) 14 mg TRANSDERMA DAILY [facility] Last Admin: 09/29/21 09:16 Dose: 14 mg Documented by: Nicotine Polacrilex (Nicotine Polacrilex 2 Mg Gum) 4 mg BUCCAL Q1H PRN PRN Reason: Nicotine Cravings Last Admin: 09/29/21 11:47 Dose: 4 mg Documented by: Psyllium Hydrophilic Mucilloid (Psyllium Seed 3.4 Gm Powd.Pack) 3.4 gm PO DAILY [facility] Last Admin: 09/29/21 09:15 Dose: 3.4 gm Documented by: Quetiapine Fumarate (Quetiapine Fumarate 200 Mg Tablet) 200 mg PO Q6H PRN PRN Reason: anxiety/restlessness Last Admin: 09/21/21 02:38 Dose: 200 mg Documented by: Quetiapine Fumarate (Quetiapine Fumarate 100 Mg Tablet) 100 mg PO DAILY [facility] Last Admin: 09/29/21 09:17 Dose: 100 mg Documented by: Quetiapine Fumarate (Quetiapine Fumarate 300 Mg Tablet) 600 mg PO BEDTIME [facility] Last Admin: 09/28/21 19:51 Dose: 600 mg Documented by: Ropinirole HCl (Ropinirole Hcl 1 Mg Tablet) 2 mg PO 1900 [facility] Last Admin: 09/28/21 18:53 Dose: 2 mg Documented by: Ropinirole HCl (Ropinirole Hcl 0.5 Mg Tablet) 0.5 mg PO 0800 [facility] Last Admin: 09/29/21 09:17 Dose: 0.5 mg Documented by: Senna/Docusate Sodium (Sennosides/Docusate Sodium Tablet) 1 tab PO BID [facility] Last Admin: 09/29/21 09:18 Dose: 1 tab Documented by: Simethicone (Simethicone 80 Mg Tab.Chew) 80 mg PO QIDWMHS PRN PRN Reason: indigestion Sodium Chloride (Sodium Chloride 0.65 % Nasal 44 Ml Sprbtl) 1 spray NOSTRIL-B Q1H PRN PRN Reason: congestion Last Admin: 09/29/21 13:37 Dose: 1 spray Documented by: Trolamine Salicylate/Aloe Vera (Trolamine Salicylate 10%/Aloe Cream 35.4 Gm) 1 appl TOPICAL TID PRN PRN Reason: sciatica Last Admin: 09/03/21 05:27 Dose: 1 appl Documented by: Ziprasidone (Ziprasidone 20 Mg Capsule) 20 mg PO BID PRN PRN Reason: psychosis Allergies Allergies Allergy/AdvReac Type Severity Reaction Status Date / Time aripiprazole [From [facility]] Allergy Unknown Involuntary Verified 08/19/21 07:20 Spasms chlorpromazine Allergy Unknown Nausea and Verified 08/19/21 07:20 [From Thorazine] Vomiting haloperidol [From Haldol] Allergy Unknown Involuntary Verified 08/19/21 07:20 Spasms olanzapine [From Zyprexa] Allergy Unknown Involuntary Verified 08/19/21 07:20 Spasms paliperidone [From Invega] Allergy Unknown Hallucinati Verified 08/19/21 07:20 ons risperidone Allergy Unknown Involuntary Verified 08/19/21 07:20 Spasms Assessment & Plan Assessment & Plan (1) Schizoaffective disorder, bipolar type: Status: Acute Code(s): F25.0 - Schizoaffective disorder, bipolar type Assessment and Plan: - Continue current plan Discharge planning. Referral to rest home setting patient agreeable not overtly psychotic or manic when seen (2) Lumbar radiculopathy: Status: Acute Code(s): M54.16 - Radiculopathy, lumbar region (3) Hip pain, left: Status: Acute Code(s): M25.552 - Pain in left hip Plan 09/20/21- Improving. Transition planning with [facility]. Pt is looking at discharge to a rest home and transitioning to [facility] services in [facility]. No medication changes today. 09/21: stable on current medications. on seroquel and lithium, c/o of hip pain on ibuprofen with partial response. no behavioral concerns. no overt delusional content nor psychosis noted. 09/22/21: Continue plan of care. 09/23/21: Ortho consult-Left hip pain Pt has requested a flu shot. Discharge planning-pt considering a rest home as a temporary placement. 09/24 continue per primary treatment team. 09/25: no med changes, pt is sig less manic 09/27/21: Continue plan of care. Transitioning from [facility] of [facility] to local office. 09/28/21: Continue plan of care. Support in transition and discharge planning. Refusal of [place] discussed with Blanca. Discussed other options-she will consider. I spent minutes with the patient and/or on the patient floor today, greater than?50% of which was spent counseling/coordinating care. Reason for contiued inpatient stay Substantial Risk for: harm to others, inability to function, rapid decompensation and med/psych decompensation
[2021-09-29] MEDS: rOPINIRole HCL 1 MG TABLET 2 MG PO (18:58)
[2021-09-29 19:10] VITALS: BP 165/92; PULSE 92; TEMP 36.9
[2021-09-29] MEDS: Melatonin 3 MG TABLET 9 MG PO (20:45)
[2021-09-29] MEDS: hydrOXYzine HCL 25 MG TABLET PO (20:46)
[2021-09-29] MEDS: cloNIDine HCL 0.1 MG TABLET PO (20:46)
[2021-09-29] MEDS: Mirtazapine 7.5 MG TABLET PO (20:47)
[2021-09-29] MEDS: QUEtiapine Fumarate 300 MG TABLET 600 MG PO (20:48)
[2021-09-30] MEDS: LORazepam 1 MG TABLET PO ×2 (00:34→18:44)
[2021-09-30] MEDS: Nicotine Polacrilex 2 MG GUM 4 MG BUCCAL ×5 (00:34→22:28)
[2021-09-30] MEDS: Multivitamin TABLET 1 TAB PO (10:57)
[2021-09-30] MEDS: rOPINIRole HCL 0.5 MG TABLET PO (10:57)
[2021-09-30] MEDS: Sennosides/Docusate Sodium TABLET 1 TAB PO ×2 (10:57→22:25)
[2021-09-30] MEDS: Lithium Carbonate 300 MG TABLET PO ×2 (10:57→22:27)
[2021-09-30] MEDS: amLODIPine Besylate 2.5 MG TABLET PO (10:57)
[2021-09-30] MEDS: Gabapentin 400 MG CAPSULE 800 MG PO ×3 (10:57→22:23)
[2021-09-30] MEDS: Lidocaine 4 % Patch ADH..PATCH 1 PATCH TRANSDERMA ×2 (10:58→10:59)
[2021-09-30] MEDS: Mineral Oil/Petrolatum,White 106 GM Tube 1 APPL TOPICAL (11:03)
[2021-09-30] MEDS: Cyanocobalamin (Vitamin B-12) 100 MCG TABLET PO (11:03)
[2021-09-30] MEDS: Nicotine 14 MG PATCH.TD24 TRANSDERMA (11:14)
[2021-09-30] MEDS: QUEtiapine Fumarate 100 MG TABLET PO (11:14)
[2021-09-30] MEDS: Diclofenac Sodium Delayed Rel 75 MG TABLET.DR PO ×2 (11:18→19:34)
--- NOTE | 2021-09-30 14:29 | HO.PSYCHPN ---
Subjective Subjective Date of Service: 09/30/21 Reason For Visit: Bipolar, Schizoaffective Interim History: Blanca reports no issues or questions today. Reports she is feeling tired and would like to nap. She continues to report worry and anxiety regarding attempt to transtion to a new [facility] assigned area. She has not chosen a mood stabilizer to replace [place] yet and denies questions regarding the ones we have discussed. Medication Compliance: Yes Side effects from medications: No Attending Groups: Yes Review of Systems Acute medical concerns: No Medical Review of Systems: unchanged Review of Systems Musculoskeletal: Reports back pain, Reports myalgias, Reports arthralgias and Reports stiffness Reports behavioral changes Psychiatric: Reports anxiety, Reports behavioral changes and Reports anhedonia Mental Status Exam Mental Status Exam Patient Appearance: Appropriate Patient Orientation: Person, Place, Time and Situation Level of Consciousness: Alert Patient Behavior: Appropriate, Talkative, Cooperative and Good Eye Contact Mood Description: Apprehensive Affect Description: Constricted Patient Cognition Impaired: No Ability to Follow Directions: Good Speech Pattern: Clear and Spontaneous Speech Memory Description: Intact Hallucinations: Auditory Delusions: Paranoid Ideation Perceptual Disturbances: Depersonalization and Derealization Thought Process: Goal Oriented Thought Content: positive for Goal Oriented and positive for Suicidal Ideation (denies) Depressive Symptoms: Low Self Esteem Judgement: Good Diagnostics Vital Signs (24Hr): Vital Signs - 24 hr 09/29/21 19:10 Temperature 98.5 F Pulse Rate 92 Blood Pressure 165/92 H BMI result Body Mass Index 32.8 Imaging Radiology Impressions: ITS Impressions Abdomen Ultrasound 09/01/21 08:59 IMPRESSION: Slightly echogenic liver. Limited evaluation of the gallbladder as the patient has recently eaten. No gallstone seen. Limited visualization of the pancreas. Hip X-Ray 09/16/21 14:47 IMPRESSION: Moderate to severe left hip arthritis. Medications Medications Current Medications Acetaminophen (Acetaminophen 325 Mg Tablet) 975 mg PO Q6H PRN PRN Reason: Headache/Pain Mild Scale (1-3) Last Admin: 09/29/21 13:35 Dose: 975 mg Documented by: Al Hydroxide/Mg Hydroxide (Magnesium Hydrox/Alum Hydrox 30 Ml Oral.Susp) 30 ml PO Q6H PRN PRN Reason: Heartburn/Nausea Last Admin: 08/22/21 05:54 Dose: 30 ml Documented by: Amlodipine Besylate (Amlodipine Besylate 2.5 Mg Tablet) 2.5 mg PO DAILY [facility]; Protocol Last Admin: 09/30/21 10:57 Dose: 2.5 mg Documented by: Artificial Tears (Artificial Tears 15 Ml Drops) 2 drop EYE-BOTH Q4H PRN PRN Reason: Dry Eyes Last Admin: 09/21/21 17:50 Dose: 2 drop Documented by: Aspirin (Aspirin Enteric Coated 325 Mg Tablet.) 650 mg PO DAILY PRN PRN Reason: headache Last Admin: 09/06/21 12:18 Dose: 650 mg Documented by: Benzocaine (Benzocaine 20 % Oral Gel 9 Gm Tube) 1 appl MUCOUS MEM QID PRN; Protocol PRN Reason: Mouth Sore Pain Last Admin: 08/31/21 03:05 Dose: 1 appl Documented by: Calcium Carbonate (Calcium Carbonate 500 Mg Tablet) 500 mg PO DAILY [facility] Last Admin: 09/30/21 10:57 Dose: 500 mg Documented by: Clonidine HCl (Clonidine Hcl 0.1 Mg Tablet) 0.1 mg PO BEDTIME [facility]; Protocol Last Admin: 09/29/21 20:46 Dose: 0.1 mg Documented by: [place] Butter/Zinc Oxide ([place] Butter/Zinc Oxide Supp.Rect) 1 supp [place] BID PRN PRN Reason: hemorrhoid pain [place] Butter/Zinc Oxide ([place] Butter/Zinc Oxide Supp.Rect) 1 supp [place] BEDTIME PRN PRN Reason: hemorrhoid pain Last Admin: 09/13/21 21:15 Dose: 1 supp Documented by: Cyanocobalamin (Cyanocobalamin (Vitamin B-12) 100 Mcg Tablet) 100 mcg PO DAILY [facility] Last Admin: 09/30/21 11:03 Dose: 100 mcg Documented by: Diclofenac Sodium (Diclofenac Sodium Delayed Rel 75 Mg Tablet.) 75 mg PO 0900,1900 [facility] Last Admin: 09/30/21 11:18 Dose: 75 mg Documented by: Diphenhydramine HCl (Diphenhydramine Hcl 25 Mg Tablet) 50 mg PO Q6H PRN PRN Reason: eps Last Admin: 09/22/21 23:48 Dose: 50 mg Documented by: Gabapentin (Gabapentin 400 Mg Capsule) 800 mg PO TID [facility] Last Admin: 09/30/21 14:08 Dose: 800 mg Documented by: Gabapentin (Gabapentin 100 Mg Capsule) 100 mg PO TID PRN PRN Reason: neuropathic pain Last Admin: 09/26/21 17:14 Dose: 100 mg Documented by: Hydroxyzine HCl (Hydroxyzine Hcl 25 Mg Tablet) 25 mg PO BEDTIME PRN PRN Reason: Anxiety Last Admin: 09/22/21 23:48 Dose: 25 mg Documented by: Hydroxyzine HCl (Hydroxyzine Hcl 25 Mg Tablet) 25 mg PO BEDTIME [facility] Last Admin: 09/29/21 20:46 Dose: 25 mg Documented by: Lidocaine (Lidocaine 4 % Patch Adh..Patch) 1 patch TRANSDERMA DAILY [facility]; Protocol Last Admin: 09/30/21 10:58 Dose: 1 patch Documented by: Lidocaine (Lidocaine 4 % Patch Adh..Patch) 1 patch TRANSDERMA DAILY [facility]; Protocol Last Admin: 09/30/21 10:59 Dose: 1 patch Documented by: [place] Carbonate ([place] Carbonate 300 Mg Tablet) 300 mg PO BID [facility] Last Admin: 09/30/21 10:57 Dose: 300 mg Documented by: Lorazepam (Lorazepam 1 Mg Tablet) 1 mg PO Q8H PRN PRN Reason: agitation, anxiety Last Admin: 09/30/21 00:34 Dose: 1 mg Documented by: Magnesium Citrate (Magnesium Citrate 300 Ml Solution) 300 ml PO DAILY PRN PRN Reason: Constipation Last Admin: 09/28/21 14:11 Dose: 300 ml Documented by: Magnesium Hydroxide (Milk Of Magnesia 30 Ml Oral.Susp) 30 ml PO DAILY PRN PRN Reason: Constipation Last Admin: 08/31/21 20:05 Dose: 30 ml Documented by: Melatonin (Melatonin 3 Mg Tablet) 9 mg PO BEDTIME [facility] Last Admin: 09/29/21 20:45 Dose: 9 mg Documented by: Mirtazapine (Mirtazapine 7.5 Mg Tablet) 7.5 mg PO BEDTIME [facility] Last Admin: 09/29/21 20:47 Dose: 7.5 mg Documented by: Multi-Ingred Cream/Lotion/Oil/Oint (Mineral Oil/Petrolatum,White 106 Gm Tube) 1 appl TOPICAL BID [facility]; Protocol Last Admin: 09/30/21 11:03 Dose: 1 appl Documented by: Multivitamins/Vitamin C (Multivitamin Tablet) 1 tab PO DAILY [facility] Last Admin: 09/30/21 10:57 Dose: 1 tab Documented by: Nicotine (Nicotine 14 Mg Patch.Td24) 14 mg TRANSDERMA DAILY [facility] Last Admin: 09/30/21 11:14 Dose: 14 mg Documented by: Nicotine Polacrilex (Nicotine Polacrilex 2 Mg Gum) 4 mg BUCCAL Q1H PRN PRN Reason: Nicotine Cravings Last Admin: 09/30/21 14:08 Dose: 4 mg Documented by: Psyllium Hydrophilic Mucilloid (Psyllium Seed 3.4 Gm Powd.Pack) 3.4 gm PO DAILY [facility] Last Admin: 09/30/21 10:58 Dose: 3.4 gm Documented by: Quetiapine Fumarate (Quetiapine Fumarate 200 Mg Tablet) 200 mg PO Q6H PRN PRN Reason: anxiety/restlessness Last Admin: 09/21/21 02:38 Dose: 200 mg Documented by: Quetiapine Fumarate (Quetiapine Fumarate 100 Mg Tablet) 100 mg PO DAILY [facility] Last Admin: 09/30/21 11:14 Dose: 100 mg Documented by: Quetiapine Fumarate (Quetiapine Fumarate 300 Mg Tablet) 600 mg PO BEDTIME [facility] Last Admin: 09/29/21 20:48 Dose: 600 mg Documented by: Ropinirole HCl (Ropinirole Hcl 1 Mg Tablet) 2 mg PO 1900 [facility] Last Admin: 09/29/21 18:58 Dose: 2 mg Documented by: Ropinirole HCl (Ropinirole Hcl 0.5 Mg Tablet) 0.5 mg PO 0800 [facility] Last Admin: 09/30/21 10:57 Dose: 0.5 mg Documented by: Senna/Docusate Sodium (Sennosides/Docusate Sodium Tablet) 1 tab PO BID [facility] Last Admin: 09/30/21 10:57 Dose: 1 tab Documented by: Simethicone (Simethicone 80 Mg Tab.Chew) 80 mg PO QIDWMHS PRN PRN Reason: indigestion Sodium Chloride (Sodium Chloride 0.65 % Nasal 44 Ml Sprbtl) 1 spray NOSTRIL-B Q1H PRN PRN Reason: congestion Last Admin: 09/29/21 13:37 Dose: 1 spray Documented by: Trolamine Salicylate/Aloe Vera (Trolamine Salicylate 10%/Aloe Cream 35.4 Gm) 1 appl TOPICAL TID PRN PRN Reason: sciatica Last Admin: 09/03/21 05:27 Dose: 1 appl Documented by: Ziprasidone (Ziprasidone 20 Mg Capsule) 20 mg PO BID PRN PRN Reason: psychosis Allergies Allergies Allergy/AdvReac Type Severity Reaction Status Date / Time aripiprazole [From Abilify] Allergy Unknown Involuntary Verified 08/19/21 07:20 Spasms chlorpromazine Allergy Unknown Nausea and Verified 08/19/21 07:20 [From Thorazine] Vomiting haloperidol [From Haldol] Allergy Unknown Involuntary Verified 08/19/21 07:20 Spasms olanzapine [From Zyprexa] Allergy Unknown Involuntary Verified 08/19/21 07:20 Spasms paliperidone [From Invega] Allergy Unknown Hallucinati Verified 08/19/21 07:20 ons risperidone Allergy Unknown Involuntary Verified 08/19/21 07:20 Spasms Assessment & Plan Assessment & Plan (1) Schizoaffective disorder, bipolar type: Status: Acute Code(s): F25.0 - Schizoaffective disorder, bipolar type Assessment and Plan: 09/30/21- Continue current plan Discharge planning. Referral to rest home setting patient agreeable not overtly psychotic or manic when seen (2) Lumbar radiculopathy: Status: Acute Code(s): M54.16 - Radiculopathy, lumbar region (3) Hip pain, left: Status: Acute Code(s): M25.552 - Pain in left hip Plan 09/20/21- Improving. Transition planning with [facility]. Pt is looking at discharge to a rest home and transitioning to [facility] services in [facility]. No medication changes today. 09/21: stable on current medications. on seroquel and lithium, c/o of hip pain on ibuprofen with partial response. no behavioral concerns. no overt delusional content nor psychosis noted. 09/22/21: Continue plan of care. 09/23/21: Ortho consult-Left hip pain Pt has requested a flu shot. Discharge planning-pt considering a rest home as a temporary placement. 09/24 continue per primary treatment team. 09/25: no med changes, pt is sig less manic 09/27/21: Continue plan of care. Transitioning from [facility] of [facility] to local office. 09/28/21: Continue plan of care. Support in transition and discharge planning. Refusal of [place] discussed with Blanca. Discussed other options-she will consider. I spent 15 minutes with the patient and/or on the patient floor today, greater than?50% of which was spent counseling/coordinating care. Patient educated on: medication risk/benefits and therapeutic strategies Informed Consent: further education needed Reason for contiued inpatient stay Substantial Risk for: harm to self, harm to others, inability to function, rapid decompensation and med/psych decompensation
[2021-09-30 18:00] VITALS: BP 127/60; PULSE 92; TEMP 37
[2021-09-30] MEDS: rOPINIRole HCL 1 MG TABLET 2 MG PO (19:35)
[2021-09-30] MEDS: QUEtiapine Fumarate 300 MG TABLET 600 MG PO (22:23)
[2021-09-30] MEDS: hydrOXYzine HCL 25 MG TABLET PO (22:24)
[2021-09-30] MEDS: cloNIDine HCL 0.1 MG TABLET PO (22:24)
[2021-09-30] MEDS: Mirtazapine 7.5 MG TABLET PO (22:24)
[2021-09-30] MEDS: Melatonin 3 MG TABLET 9 MG PO (22:25)
[2021-10-01] MEDS: amLODIPine Besylate 2.5 MG TABLET PO (09:33)
[2021-10-01] MEDS: Sennosides/Docusate Sodium TABLET 1 TAB PO (09:33)
[2021-10-01] MEDS: Nicotine Polacrilex 2 MG GUM 4 MG BUCCAL ×3 (09:33→21:24)
[2021-10-01] MEDS: Gabapentin 400 MG CAPSULE 800 MG PO ×3 (09:33→21:17)
[2021-10-01] MEDS: Lithium Carbonate 300 MG TABLET PO ×2 (09:33→21:17)
[2021-10-01] MEDS: rOPINIRole HCL 0.5 MG TABLET PO (09:33)
[2021-10-01] MEDS: Multivitamin TABLET 1 TAB PO (09:34)
[2021-10-01] MEDS: Cyanocobalamin (Vitamin B-12) 100 MCG TABLET PO (09:34)
[2021-10-01] MEDS: QUEtiapine Fumarate 100 MG TABLET PO (09:34)
[2021-10-01] MEDS: Nicotine 14 MG PATCH.TD24 TRANSDERMA (09:36)
[2021-10-01] MEDS: Diclofenac Sodium Delayed Rel 75 MG TABLET.DR PO ×2 (09:42→19:25)
[2021-10-01 10:28] VITALS: BP 96/53; PULSE 104; RESP 14; O2SAT 94
--- NOTE | 2021-10-01 10:46 | P.PNPSI_ITS ---
Subjective Subjective Date of Service: 10/01/21 Reason For Visit: Bipolar, Schizoaffective Medical Problems Affecting Mental Status: No Interim History: Reports feeling well. Sleep is interupted-pt reports long latency, sleeping well 2-5 am and needing a nap during the day. Discouraged about being rejected from local rest homes due to age and history of addiction. Willing to accept all options at this point. Discussed chronic pain sx. Pt willing to have further eval for fibromyalgia- discussed possible testing-she concurs. Medication Compliance: Yes Side effects from medications: No Attending Groups: Intermittent Review of Systems Acute medical concerns: No Medical Review of Systems: unchanged Review of Systems Musculoskeletal: Reports back pain, Reports myalgias, Reports arthralgias and Reports stiffness Reports behavioral changes Psychiatric: Reports anxiety, Reports behavioral changes and Reports anhedonia Mental Status Exam Mental Status Exam Patient Appearance: Appropriate Patient Orientation: Person, Place, Time and Situation Level of Consciousness: Alert Patient Behavior: Appropriate, Talkative, Cooperative and Good Eye Contact Mood Description: Apprehensive Affect Description: Constricted Patient Cognition Impaired: No Ability to Follow Directions: Good Speech Pattern: Clear and Spontaneous Speech Memory Description: Intact Hallucinations: Auditory Delusions: Paranoid Ideation Perceptual Disturbances: Depersonalization and Derealization Thought Process: Goal Oriented Thought Content: positive for Goal Oriented and positive for Suicidal Ideation (denies) Depressive Symptoms: Low Self Esteem Judgement: Good Diagnostics Vital Signs (24Hr): Vital Signs - 24 hr 09/30/21 18:00 10/01/21 10:28 Temperature 98.6 F Pulse Rate 92 104 H Respiratory Rate 14 Blood Pressure 127/60 96/53 L Pulse Oximetry 94 BMI result Body Mass Index 32.8 Imaging Radiology Impressions: ITS Impressions Abdomen Ultrasound 09/01/21 08:59 IMPRESSION: Slightly echogenic liver. Limited evaluation of the gallbladder as the patient has recently eaten. No gallstone seen. Limited visualization of the pancreas. Hip X-Ray 09/16/21 14:47 IMPRESSION: Moderate to severe left hip arthritis. Medications Medications Current Medications Acetaminophen (Acetaminophen 325 Mg Tablet) 975 mg PO Q6H PRN PRN Reason: Headache/Pain Mild Scale (1-3) Last Admin: 09/29/21 13:35 Dose: 975 mg Documented by: Al Hydroxide/Mg Hydroxide (Magnesium Hydrox/Alum Hydrox 30 Ml Oral.Susp) 30 ml PO Q6H PRN PRN Reason: Heartburn/Nausea Last Admin: 08/22/21 05:54 Dose: 30 ml Documented by: Amlodipine Besylate (Amlodipine Besylate 2.5 Mg Tablet) 2.5 mg PO DAILY [facility]; Protocol Last Admin: 10/01/21 09:33 Dose: 2.5 mg Documented by: Artificial Tears (Artificial Tears 15 Ml Drops) 2 drop EYE-BOTH Q4H PRN PRN Reason: Dry Eyes Last Admin: 09/21/21 17:50 Dose: 2 drop Documented by: Aspirin (Aspirin Enteric Coated 325 Mg Tablet.) 650 mg PO DAILY PRN PRN Reason: headache Last Admin: 09/06/21 12:18 Dose: 650 mg Documented by: Benzocaine (Benzocaine 20 % Oral Gel 9 Gm Tube) 1 appl MUCOUS MEM QID PRN; Protocol PRN Reason: Mouth Sore Pain Last Admin: 08/31/21 03:05 Dose: 1 appl Documented by: Calcium Carbonate (Calcium Carbonate 500 Mg Tablet) 500 mg PO DAILY [facility] Last Admin: 10/01/21 09:33 Dose: 500 mg Documented by: Clonidine HCl (Clonidine Hcl 0.1 Mg Tablet) 0.1 mg PO BEDTIME [facility]; Protocol Last Admin: 09/30/21 22:24 Dose: 0.1 mg Documented by: [place] Butter/Zinc Oxide ([place] Butter/Zinc Oxide Supp.Rect) 1 supp [place] BID PRN PRN Reason: hemorrhoid pain [place] Butter/Zinc Oxide ([place] Butter/Zinc Oxide Supp.Rect) 1 supp [place] BEDTIME PRN PRN Reason: hemorrhoid pain Last Admin: 09/13/21 21:15 Dose: 1 supp Documented by: Cyanocobalamin (Cyanocobalamin (Vitamin B-12) 100 Mcg Tablet) 100 mcg PO DAILY [facility] Last Admin: 10/01/21 09:34 Dose: 100 mcg Documented by: Diclofenac Sodium (Diclofenac Sodium Delayed Rel 75 Mg Tablet.) 75 mg PO 0900,1900 [facility] Last Admin: 10/01/21 09:42 Dose: 75 mg Documented by: Diphenhydramine HCl (Diphenhydramine Hcl 25 Mg Tablet) 50 mg PO Q6H PRN PRN Reason: eps Last Admin: 09/22/21 23:48 Dose: 50 mg Documented by: Gabapentin (Gabapentin 400 Mg Capsule) 800 mg PO TID [facility] Last Admin: 10/01/21 09:33 Dose: 800 mg Documented by: Gabapentin (Gabapentin 100 Mg Capsule) 100 mg PO TID PRN PRN Reason: neuropathic pain Last Admin: 09/26/21 17:14 Dose: 100 mg Documented by: Hydroxyzine HCl (Hydroxyzine Hcl 25 Mg Tablet) 25 mg PO BEDTIME PRN PRN Reason: Anxiety Last Admin: 09/22/21 23:48 Dose: 25 mg Documented by: Hydroxyzine HCl (Hydroxyzine Hcl 25 Mg Tablet) 25 mg PO BEDTIME [facility] Last Admin: 09/30/21 22:24 Dose: 25 mg Documented by: Lidocaine (Lidocaine 4 % Patch Adh..Patch) 1 patch TRANSDERMA DAILY [facility]; Protocol Last Admin: 10/01/21 09:38 Dose: Not Given Documented by: Lidocaine (Lidocaine 4 % Patch Adh..Patch) 1 patch TRANSDERMA DAILY [facility]; Protocol Last Admin: 10/01/21 09:39 Dose: Not Given Documented by: [place] Carbonate ([place] Carbonate 300 Mg Tablet) 300 mg PO BID [facility] Last Admin: 10/01/21 09:33 Dose: 300 mg Documented by: Lorazepam (Lorazepam 1 Mg Tablet) 1 mg PO Q8H PRN PRN Reason: agitation, anxiety Last Admin: 09/30/21 18:44 Dose: 1 mg Documented by: Magnesium Citrate (Magnesium Citrate 300 Ml Solution) 300 ml PO DAILY PRN PRN Reason: Constipation Last Admin: 09/28/21 14:11 Dose: 300 ml Documented by: Magnesium Hydroxide (Milk Of Magnesia 30 Ml Oral.Susp) 30 ml PO DAILY PRN PRN Reason: Constipation Last Admin: 08/31/21 20:05 Dose: 30 ml Documented by: Melatonin (Melatonin 3 Mg Tablet) 9 mg PO BEDTIME [facility] Last Admin: 09/30/21 22:25 Dose: 9 mg Documented by: Mirtazapine (Mirtazapine 7.5 Mg Tablet) 7.5 mg PO BEDTIME [facility] Last Admin: 09/30/21 22:24 Dose: 7.5 mg Documented by: Multi-Ingred Cream/Lotion/Oil/Oint (Mineral Oil/Petrolatum,White 106 Gm Tube) 1 appl TOPICAL BID [facility]; Protocol Last Admin: 10/01/21 09:39 Dose: Not Given Documented by: Multivitamins/Vitamin C (Multivitamin Tablet) 1 tab PO DAILY [facility] Last Admin: 10/01/21 09:34 Dose: 1 tab Documented by: Nicotine (Nicotine 14 Mg Patch.Td24) 14 mg TRANSDERMA DAILY [facility] Last Admin: 10/01/21 09:36 Dose: 14 mg Documented by: Nicotine Polacrilex (Nicotine Polacrilex 2 Mg Gum) 4 mg BUCCAL Q1H PRN PRN Reason: Nicotine Cravings Last Admin: 10/01/21 09:33 Dose: 4 mg Documented by: Psyllium Hydrophilic Mucilloid (Psyllium Seed 3.4 Gm Powd.Pack) 3.4 gm PO DAILY [facility] Last Admin: 10/01/21 09:36 Dose: 3.4 gm Documented by: Quetiapine Fumarate (Quetiapine Fumarate 200 Mg Tablet) 200 mg PO Q6H PRN PRN Reason: anxiety/restlessness Last Admin: 09/21/21 02:38 Dose: 200 mg Documented by: Quetiapine Fumarate (Quetiapine Fumarate 100 Mg Tablet) 100 mg PO DAILY [facility] Last Admin: 10/01/21 09:34 Dose: 100 mg Documented by: Quetiapine Fumarate (Quetiapine Fumarate 300 Mg Tablet) 600 mg PO BEDTIME [facility] Last Admin: 09/30/21 22:23 Dose: 600 mg Documented by: Ropinirole HCl (Ropinirole Hcl 1 Mg Tablet) 2 mg PO 1900 [facility] Last Admin: 09/30/21 19:35 Dose: 2 mg Documented by: Ropinirole HCl (Ropinirole Hcl 0.5 Mg Tablet) 0.5 mg PO 0800 [facility] Last Admin: 10/01/21 09:33 Dose: 0.5 mg Documented by: Senna/Docusate Sodium (Sennosides/Docusate Sodium Tablet) 1 tab PO BID [facility] Last Admin: 10/01/21 09:33 Dose: 1 tab Documented by: Simethicone (Simethicone 80 Mg Tab.Chew) 80 mg PO QIDWMHS PRN PRN Reason: indigestion Sodium Chloride (Sodium Chloride 0.65 % Nasal 44 Ml Sprbtl) 1 spray NOSTRIL-B Q1H PRN PRN Reason: congestion Last Admin: 09/29/21 13:37 Dose: 1 spray Documented by: Trolamine Salicylate/Aloe Vera (Trolamine Salicylate 10%/Aloe Cream 35.4 Gm) 1 appl TOPICAL TID PRN PRN Reason: sciatica Last Admin: 09/03/21 05:27 Dose: 1 appl Documented by: Ziprasidone (Ziprasidone 20 Mg Capsule) 20 mg PO BID PRN PRN Reason: psychosis Allergies Allergies Allergy/AdvReac Type Severity Reaction Status Date / Time aripiprazole [From Abilify] Allergy Unknown Involuntary Verified 08/19/21 07:20 Spasms chlorpromazine Allergy Unknown Nausea and Verified 08/19/21 07:20 [From Thorazine] Vomiting haloperidol [From Haldol] Allergy Unknown Involuntary Verified 08/19/21 07:20 Spasms olanzapine [From Zyprexa] Allergy Unknown Involuntary Verified 08/19/21 07:20 Spasms paliperidone [From Invega] Allergy Unknown Hallucinati Verified 08/19/21 07:20 ons risperidone Allergy Unknown Involuntary Verified 08/19/21 07:20 Spasms Assessment & Plan Assessment & Plan (1) Schizoaffective disorder, bipolar type: Status: Acute Code(s): F25.0 - Schizoaffective disorder, bipolar type Assessment and Plan: 10/01/21- Continue current plan Discharge planning. Referral to rest home setting patient agreeable not overtly psychotic or manic when seen (2) Lumbar radiculopathy: Status: Acute Code(s): M54.16 - Radiculopathy, lumbar region (3) Hip pain, left: Status: Acute Code(s): M25.552 - Pain in left hip Plan 09/20/21- Improving. Transition planning with [facility]. Pt is looking at discharge to a rest home and transitioning to [facility] services in [facility]. No medication changes today. 09/21: stable on current medications. on seroquel and lithium, c/o of hip pain on ibuprofen with partial response. no behavioral concerns. no overt delusional content nor psychosis noted. 09/22/21: Continue plan of care. 09/23/21: Ortho consult-Left hip pain Pt has requested a flu shot. Discharge planning-pt considering a rest home as a temporary placement. 09/24 continue per primary treatment team. 09/25: no med changes, pt is sig less manic 09/27/21: Continue plan of care. Transitioning from [facility] to local office. 09/28/21: Continue plan of care. Support in transition and discharge planning. Refusal of [place] discussed with Blanca. Discussed other options- she will consider. 10/01/21: Continue plan of care. Fe, TIBC, ESR, CRP, RF, Vit D, CCP I spent 25 minutes with the patient and/or on the patient floor today, greater than?50% of which was spent counseling/coordinating care. Patient educated on: medication risk/benefits, therapeutic strategies, medical condition and other Informed Consent: understands and further education needed Reason for contiued inpatient stay Substantial Risk for: harm to self, inability to function, rapid decompensation and med/psych decompensation
[2021-10-01] MEDS: Acetaminophen 325 MG TABLET 975 MG PO (13:33)
[2021-10-01] MEDS: rOPINIRole HCL 1 MG TABLET 2 MG PO (19:25)
[2021-10-01 19:30] VITALS: BP 117/69; PULSE 86; RESP 18; TEMP 36.1; O2SAT 97
[2021-10-01] MEDS: LORazepam 1 MG TABLET PO (19:40)
[2021-10-01] MEDS: Magnesium Citrate 300 ML SOLUTION PO (19:40)
[2021-10-01] MEDS: Melatonin 3 MG TABLET 9 MG PO (21:16)
[2021-10-01] MEDS: Mirtazapine 7.5 MG TABLET PO (21:17)
[2021-10-01] MEDS: QUEtiapine Fumarate 300 MG TABLET 600 MG PO (21:17)
[2021-10-01] MEDS: cloNIDine HCL 0.1 MG TABLET PO (21:17)
[2021-10-01] MEDS: hydrOXYzine HCL 25 MG TABLET PO (21:17)
[2021-10-01 21:23] VITALS: BP 128/76; PULSE 79
[2021-10-02 08:24] LABS: C Reactive Protein 0.15 mg/dL (< or = 0.50); Iron 102 mcg/dL (30-160); Percent Iron Saturation 29 % (15-50); Rheumatoid Factor < 15.0 IU/mL (<15.0); Total Iron Binding Capacity 357 mcg/dL (228-428); Unsaturated Iron Binding 255 ug/dL
[2021-10-02 08:32] LABS: Erythrocyte Sedimentation Rate 9 MM/HR (0-20)
[2021-10-02] MEDS: Nicotine Polacrilex 2 MG GUM 4 MG BUCCAL ×3 (09:13→18:58)
[2021-10-02] MEDS: rOPINIRole HCL 0.5 MG TABLET PO (09:14)
[2021-10-02] MEDS: Sennosides/Docusate Sodium TABLET 1 TAB PO (09:14)
[2021-10-02] MEDS: Lithium Carbonate 300 MG TABLET PO ×2 (09:14→21:34)
[2021-10-02] MEDS: Nicotine 14 MG PATCH.TD24 TRANSDERMA (09:14)
[2021-10-02] MEDS: Gabapentin 400 MG CAPSULE 800 MG PO ×3 (09:14→21:33)
[2021-10-02] MEDS: Cyanocobalamin (Vitamin B-12) 100 MCG TABLET PO (09:15)
[2021-10-02] MEDS: Diclofenac Sodium Delayed Rel 75 MG TABLET.DR PO ×2 (09:15→18:54)
[2021-10-02] MEDS: Multivitamin TABLET 1 TAB PO (09:16)
[2021-10-02] MEDS: QUEtiapine Fumarate 100 MG TABLET PO (09:16)
--- NOTE | 2021-10-02 11:57 | P.PNPSI_ITS ---
Subjective Subjective Date of Service: 10/02/21 Reason For Visit: Bipolar, Schizoaffective Interim History: Blanca expressed worry and sadness today regarding placement rejections thus far. She worries about being homeless or needing to return to [facility] to live. Believes she has made progress and wants to continue this, however, she does not believe this is possible should she return to [facility]. Reports no med SE, sleep is interrupted, appetite is intact. Medication Compliance: Yes Side effects from medications: No Attending Groups: Intermittent Review of Systems Acute medical concerns: No Medical Review of Systems: unchanged Review of Systems Reports behavioral changes Psychiatric: Reports abnormal sleep pattern, Reports anxiety, Reports behavioral changes, Reports depression, Reports hopelessness and Reports anhedonia Mental Status Exam Mental Status Exam Patient Appearance: Appropriate Patient Orientation: Person, Place, Time and Situation Level of Consciousness: Alert Patient Behavior: Appropriate, Talkative, Cooperative and Good Eye Contact Mood Description: Apprehensive Affect Description: Constricted Patient Cognition Impaired: No Ability to Follow Directions: Good Speech Pattern: Clear and Spontaneous Speech Memory Description: Intact Hallucinations: Auditory Delusions: Paranoid Ideation Perceptual Disturbances: Depersonalization and Derealization Thought Process: Goal Oriented Thought Content: positive for Goal Oriented and positive for Suicidal Ideation (denies) Depressive Symptoms: Low Self Esteem Judgement: Good Diagnostics Vital Signs (24Hr): Vital Signs - 24 hr 10/01/21 19:30 10/01/21 21:23 Temperature 96.9 F Pulse Rate 86 79 Respiratory Rate 18 Blood Pressure 117/69 128/76 Pulse Oximetry 97 BMI result Body Mass Index 32.8 Labs Labs: Laboratory Results - last 48 hr 10/02/21 10/02/21 07:23 07:24 ESR 9 Iron 102 TIBC 357 % Saturation 29 Unsat Iron Binding 255 C-Reactive Protein 0.15 Rheumatoid Factor < 15.0 Imaging Radiology Impressions: ITS Impressions Abdomen Ultrasound 09/01/21 08:59 IMPRESSION: Slightly echogenic liver. Limited evaluation of the gallbladder as the patient has recently eaten. No gallstone seen. Limited visualization of the pancreas. Hip X-Ray 09/16/21 14:47 IMPRESSION: Moderate to severe left hip arthritis. Medications Medications Current Medications Acetaminophen (Acetaminophen 325 Mg Tablet) 975 mg PO Q6H PRN PRN Reason: Headache/Pain Mild Scale (1-3) Last Admin: 10/01/21 13:33 Dose: 975 mg Documented by: Al Hydroxide/Mg Hydroxide (Magnesium Hydrox/Alum Hydrox 30 Ml Oral.Susp) 30 ml PO Q6H PRN PRN Reason: Heartburn/Nausea Last Admin: 08/22/21 05:54 Dose: 30 ml Documented by: Amlodipine Besylate (Amlodipine Besylate 2.5 Mg Tablet) 2.5 mg PO DAILY YAYA; Protocol Last Admin: 10/02/21 09:19 Dose: Not Given Documented by: Artificial Tears (Artificial Tears 15 Ml Drops) 2 drop EYE-BOTH Q4H PRN PRN Reason: Dry Eyes Last Admin: 09/21/21 17:50 Dose: 2 drop Documented by: Aspirin (Aspirin Enteric Coated 325 Mg Tablet.) 650 mg PO DAILY PRN PRN Reason: headache Last Admin: 09/06/21 12:18 Dose: 650 mg Documented by: Benzocaine (Benzocaine 20 % Oral Gel 9 Gm Tube) 1 appl MUCOUS MEM QID PRN; Protocol PRN Reason: Mouth Sore Pain Last Admin: 08/31/21 03:05 Dose: 1 appl Documented by: Calcium Carbonate (Calcium Carbonate 500 Mg Tablet) 500 mg PO DAILY [facility] Last Admin: 10/02/21 09:16 Dose: 500 mg Documented by: Clonidine HCl (Clonidine Hcl 0.1 Mg Tablet) 0.1 mg PO BEDTIME YAYA; Protocol Last Admin: 10/01/21 21:17 Dose: 0.1 mg Documented by: [place] Butter/Zinc Oxide ([place] Butter/Zinc Oxide Supp.Rect) 1 supp [place] BID PRN PRN Reason: hemorrhoid pain [place] Butter/Zinc Oxide ([place] Butter/Zinc Oxide Supp.Rect) 1 supp [place] BEDTIME PRN PRN Reason: hemorrhoid pain Last Admin: 09/13/21 21:15 Dose: 1 supp Documented by: Cyanocobalamin (Cyanocobalamin (Vitamin B-12) 100 Mcg Tablet) 100 mcg PO DAILY [facility] Last Admin: 10/02/21 09:15 Dose: 100 mcg Documented by: Diclofenac Sodium (Diclofenac Sodium Delayed Rel 75 Mg Tablet.) 75 mg PO 0900,1900 [facility] Last Admin: 10/02/21 09:15 Dose: 75 mg Documented by: Diphenhydramine HCl (Diphenhydramine Hcl 25 Mg Tablet) 50 mg PO Q6H PRN PRN Reason: eps Last Admin: 09/22/21 23:48 Dose: 50 mg Documented by: Gabapentin (Gabapentin 400 Mg Capsule) 800 mg PO TID YAYA Last Admin: 10/02/21 09:14 Dose: 800 mg Documented by: Gabapentin (Gabapentin 100 Mg Capsule) 100 mg PO TID PRN PRN Reason: neuropathic pain Last Admin: 09/26/21 17:14 Dose: 100 mg Documented by: Hydroxyzine HCl (Hydroxyzine Hcl 25 Mg Tablet) 25 mg PO BEDTIME PRN PRN Reason: Anxiety Last Admin: 09/22/21 23:48 Dose: 25 mg Documented by: Hydroxyzine HCl (Hydroxyzine Hcl 25 Mg Tablet) 25 mg PO BEDTIME YAYA Last Admin: 10/01/21 21:17 Dose: 25 mg Documented by: Lidocaine (Lidocaine 4 % Patch Adh..Patch) 1 patch TRANSDERMA DAILY [facility]; Protocol Last Admin: 10/02/21 09:19 Dose: Not Given Documented by: Lidocaine (Lidocaine 4 % Patch Adh..Patch) 1 patch TRANSDERMA DAILY [facility]; Protocol Last Admin: 10/02/21 09:19 Dose: Not Given Documented by: [place] Carbonate ([place] Carbonate 300 Mg Tablet) 300 mg PO BID Y[facility] Last Admin: 10/02/21 09:14 Dose: 300 mg Documented by: Lorazepam (Lorazepam 1 Mg Tablet) 1 mg PO Q8H PRN PRN Reason: agitation, anxiety Last Admin: 10/01/21 19:40 Dose: 1 mg Documented by: Magnesium Citrate (Magnesium Citrate 300 Ml Solution) 300 ml PO DAILY PRN PRN Reason: Constipation Last Admin: 10/01/21 19:40 Dose: 300 ml Documented by: Magnesium Hydroxide (Milk Of Magnesia 30 Ml Oral.Susp) 30 ml PO DAILY PRN PRN Reason: Constipation Last Admin: 08/31/21 20:05 Dose: 30 ml Documented by: Melatonin (Melatonin 3 Mg Tablet) 9 mg PO BEDTIME Y[facility] Last Admin: 10/01/21 21:16 Dose: 9 mg Documented by: Mirtazapine (Mirtazapine 7.5 Mg Tablet) 7.5 mg PO BEDTIME Y[facility] Last Admin: 10/01/21 21:17 Dose: 7.5 mg Documented by: Multi-Ingred Cream/Lotion/Oil/Oint (Mineral Oil/Petrolatum,White 106 Gm Tube) 1 appl TOPICAL BID [facility]; Protocol Last Admin: 10/02/21 09:19 Dose: Not Given Documented by: Multivitamins/Vitamin C (Multivitamin Tablet) 1 tab PO DAILY [facility] Last Admin: 10/02/21 09:16 Dose: 1 tab Documented by: Nicotine (Nicotine 14 Mg Patch.Td24) 14 mg TRANSDERMA DAILY [facility] Last Admin: 10/02/21 09:14 Dose: 14 mg Documented by: Nicotine Polacrilex (Nicotine Polacrilex 2 Mg Gum) 4 mg BUCCAL Q1H PRN PRN Reason: Nicotine Cravings Last Admin: 10/02/21 09:13 Dose: 4 mg Documented by: Psyllium Hydrophilic Mucilloid (Psyllium Seed 3.4 Gm Powd.Pack) 3.4 gm PO DAILY [facility] Last Admin: 10/02/21 09:14 Dose: 3.4 gm Documented by: Quetiapine Fumarate (Quetiapine Fumarate 200 Mg Tablet) 200 mg PO Q6H PRN PRN Reason: anxiety/restlessness Last Admin: 09/21/21 02:38 Dose: 200 mg Documented by: Quetiapine Fumarate (Quetiapine Fumarate 100 Mg Tablet) 100 mg PO DAILY [facility] Last Admin: 10/02/21 09:16 Dose: 100 mg Documented by: Quetiapine Fumarate (Quetiapine Fumarate 300 Mg Tablet) 600 mg PO BEDTIME [facility] Last Admin: 10/01/21 21:17 Dose: 600 mg Documented by: Ropinirole HCl (Ropinirole Hcl 1 Mg Tablet) 2 mg PO 1900 [facility] Last Admin: 10/01/21 19:25 Dose: 2 mg Documented by: Ropinirole HCl (Ropinirole Hcl 0.5 Mg Tablet) 0.5 mg PO 0800 [facility] Last Admin: 10/02/21 09:14 Dose: 0.5 mg Documented by: Senna/Docusate Sodium (Sennosides/Docusate Sodium Tablet) 1 tab PO BID [facility] Last Admin: 10/02/21 09:14 Dose: 1 tab Documented by: Simethicone (Simethicone 80 Mg Tab.Chew) 80 mg PO QIDWMHS PRN PRN Reason: indigestion Sodium Chloride (Sodium Chloride 0.65 % Nasal 44 Ml Sprbtl) 1 spray NOSTRIL-B Q1H PRN PRN Reason: congestion Last Admin: 09/29/21 13:37 Dose: 1 spray Documented by: Trolamine Salicylate/Aloe Vera (Trolamine Salicylate 10%/Aloe Cream 35.4 Gm) 1 appl TOPICAL TID PRN PRN Reason: sciatica Last Admin: 09/03/21 05:27 Dose: 1 appl Documented by: Ziprasidone (Ziprasidone 20 Mg Capsule) 20 mg PO BID PRN PRN Reason: psychosis Allergies Allergies Allergy/AdvReac Type Severity Reaction Status Date / Time aripiprazole [From Abilify] Allergy Unknown Involuntary Verified 08/19/21 07:20 Spasms chlorpromazine Allergy Unknown Nausea and Verified 08/19/21 07:20 [From Thorazine] Vomiting haloperidol [From Haldol] Allergy Unknown Involuntary Verified 08/19/21 07:20 Spasms olanzapine [From Zyprexa] Allergy Unknown Involuntary Verified 08/19/21 07:20 Spasms paliperidone [From Invega] Allergy Unknown Hallucinati Verified 08/19/21 07:20 ons risperidone Allergy Unknown Involuntary Verified 08/19/21 07:20 Spasms Assessment & Plan Assessment & Plan (1) Schizoaffective disorder, bipolar type: Status: Acute Code(s): F25.0 - Schizoaffective disorder, bipolar type Assessment and Plan: 10/02/21- Continue current plan Discharge planning. Referral to rest home setting patient agreeable not overtly psychotic or manic when seen (2) Lumbar radiculopathy: Status: Acute Code(s): M54.16 - Radiculopathy, lumbar region (3) Hip pain, left: Status: Acute Code(s): M25.552 - Pain in left hip Plan 09/20/21- Improving. Transition planning with [facility]. Pt is looking at discharge to a rest home and transitioning to [facility] services in [facility]. No medication changes today. 09/21: stable on current medications. on seroquel and lithium, c/o of hip pain on ibuprofen with partial response. no behavioral concerns. no overt delusional content nor psychosis noted. 09/22/21: Continue plan of care. 09/23/21: Ortho consult-Left hip pain Pt has requested a flu shot. Discharge planning-pt considering a rest home as a temporary placement. 09/24 continue per primary treatment team. 09/25: no med changes, pt is sig less manic 09/27/21: Continue plan of care. Transitioning from [facility] to local office. 09/28/21: Continue plan of care. Support in transition and discharge planning. Refusal of [place] discussed with Blanca. Discussed other options- she will consider. 10/01/21: Continue plan of care. Fe, TIBC, ESR, CRP, RF, Vit D, CCP I spent 25 minutes with the patient and/or on the patient floor today, greater than?50% of which was spent counseling/coordinating care. Patient educated on: therapeutic strategies Informed Consent: understands Reason for contiued inpatient stay Substantial Risk for: inability to function and rapid decompensation
[2021-10-02] MEDS: Acetaminophen 325 MG TABLET 975 MG PO (17:01)
[2021-10-02] MEDS: rOPINIRole HCL 1 MG TABLET 2 MG PO (18:55)
[2021-10-02 19:12] VITALS: BP 117/80; PULSE 80; RESP 17; TEMP 36.3; O2SAT 97
[2021-10-02] MEDS: hydrOXYzine HCL 25 MG TABLET PO (21:31)
[2021-10-02] MEDS: Melatonin 3 MG TABLET 9 MG PO (21:32)
[2021-10-02] MEDS: QUEtiapine Fumarate 300 MG TABLET 600 MG PO (21:34)
[2021-10-02] MEDS: Mirtazapine 7.5 MG TABLET PO (21:36)
[2021-10-02] MEDS: cloNIDine HCL 0.1 MG TABLET PO (21:36)
[2021-10-02] MEDS: LORazepam 1 MG TABLET PO (21:41)
--- NOTE | 2021-10-03 09:28 | P.PNPSI_ITS ---
Subjective Subjective Date of Service: 10/03/21 Reason For Visit: Bipolar, Schizoaffective Interim History: Med regime review with Blanca. She asks to stop Clonidine and Remeron as she is not feeling they are too helpful. Diclofenic changed to 50 mg tid from 75 mg bid. Reports sleep is OK although she reports not always feeling completely rested. Appetite is intact she reports. Hip pain improved with treatment. Medication Compliance: Yes Side effects from medications: No Attending Groups: Intermittent Review of Systems Acute medical concerns: No Medical Review of Systems: unchanged Review of Systems Reports behavioral changes Psychiatric: Reports abnormal sleep pattern, Reports anxiety, Reports behavioral changes, Reports depression, Reports hopelessness and Reports anhedonia Mental Status Exam Mental Status Exam Patient Appearance: Appropriate Patient Orientation: Person, Place, Time and Situation Level of Consciousness: Alert Patient Behavior: Appropriate, Talkative, Cooperative and Good Eye Contact Mood Description: Apprehensive Affect Description: Constricted Patient Cognition Impaired: No Ability to Follow Directions: Good Speech Pattern: Clear and Spontaneous Speech Memory Description: Intact Hallucinations: Auditory Delusions: Paranoid Ideation Perceptual Disturbances: Depersonalization and Derealization Thought Process: Goal Oriented Thought Content: positive for Goal Oriented and positive for Suicidal Ideation (denies) Depressive Symptoms: Low Self Esteem Judgement: Good Diagnostics Vital Signs (24Hr): Vital Signs - 24 hr 10/02/21 19:12 Temperature 97.3 F Pulse Rate 80 Respiratory Rate 17 Blood Pressure 117/80 Pulse Oximetry 97 BMI result Body Mass Index 32.8 Labs Labs: Laboratory Results - last 48 hr 10/02/21 10/02/21 07:23 07:24 ESR 9 Iron 102 TIBC 357 % Saturation 29 Unsat Iron Binding 255 C-Reactive Protein 0.15 Rheumatoid Factor < 15.0 Imaging Radiology Impressions: ITS Impressions Abdomen Ultrasound 09/01/21 08:59 IMPRESSION: Slightly echogenic liver. Limited evaluation of the gallbladder as the patient has recently eaten. No gallstone seen. Limited visualization of the pancreas. Hip X-Ray 09/16/21 14:47 IMPRESSION: Moderate to severe left hip arthritis. Medications Medications Current Medications Acetaminophen (Acetaminophen 325 Mg Tablet) 975 mg PO Q6H PRN PRN Reason: Headache/Pain Mild Scale (1-3) Last Admin: 10/02/21 17:01 Dose: 975 mg Documented by: Al Hydroxide/Mg Hydroxide (Magnesium Hydrox/Alum Hydrox 30 Ml Oral.Susp) 30 ml PO Q6H PRN PRN Reason: Heartburn/Nausea Last Admin: 08/22/21 05:54 Dose: 30 ml Documented by: Amlodipine Besylate (Amlodipine Besylate 2.5 Mg Tablet) 2.5 mg PO DAILY REPLACED BY [facility]; Protocol Last Admin: 10/02/21 09:19 Dose: Not Given Documented by: Artificial Tears (Artificial Tears 15 Ml Drops) 2 drop EYE-BOTH Q4H PRN PRN Reason: Dry Eyes Last Admin: 09/21/21 17:50 Dose: 2 drop Documented by: Aspirin (Aspirin Enteric Coated 325 Mg Tablet.) 650 mg PO DAILY PRN PRN Reason: headache Last Admin: 09/06/21 12:18 Dose: 650 mg Documented by: Benzocaine (Benzocaine 20 % Oral Gel 9 Gm Tube) 1 appl MUCOUS MEM QID PRN; Protocol PRN Reason: Mouth Sore Pain Last Admin: 08/31/21 03:05 Dose: 1 appl Documented by: Calcium Carbonate (Calcium Carbonate 500 Mg Tablet) 500 mg PO DAILY [facility]PL[facility] Last Admin: 10/02/21 09:16 Dose: 500 mg Documented by: Clonidine HCl (Clonidine Hcl 0.1 Mg Tablet) 0.1 mg PO BEDTIME [facility]; Protocol Last Admin: 10/02/21 21:36 Dose: 0.1 mg Documented by: [place] Butter/Zinc Oxide ([place] Butter/Zinc Oxide Supp.Rect) 1 supp [place] BID PRN PRN Reason: hemorrhoid pain [place] Butter/Zinc Oxide ([place] Butter/Zinc Oxide Supp.Rect) 1 supp [place] BEDTIME PRN PRN Reason: hemorrhoid pain Last Admin: 09/13/21 21:15 Dose: 1 supp Documented by: Cyanocobalamin (Cyanocobalamin (Vitamin B-12) 100 Mcg Tablet) 100 mcg PO DAILY [facility]PL[facility] Last Admin: 10/02/21 09:15 Dose: 100 mcg Documented by: Diclofenac Sodium (Diclofenac Sodium Delayed Rel 75 Mg Tablet.) 75 mg PO 0900,1900 REPLACED BY [facility] Last Admin: 10/02/21 18:54 Dose: 75 mg Documented by: Diphenhydramine HCl (Diphenhydramine Hcl 25 Mg Tablet) 50 mg PO Q6H PRN PRN Reason: eps Last Admin: 09/22/21 23:48 Dose: 50 mg Documented by: Gabapentin (Gabapentin 400 Mg Capsule) 800 mg PO TID [facility] Last Admin: 10/02/21 21:33 Dose: 800 mg Documented by: Gabapentin (Gabapentin 100 Mg Capsule) 100 mg PO TID PRN PRN Reason: neuropathic pain Last Admin: 09/26/21 17:14 Dose: 100 mg Documented by: Hydroxyzine HCl (Hydroxyzine Hcl 25 Mg Tablet) 25 mg PO BEDTIME PRN PRN Reason: Anxiety Last Admin: 09/22/21 23:48 Dose: 25 mg Documented by: Hydroxyzine HCl (Hydroxyzine Hcl 25 Mg Tablet) 25 mg PO BEDTIME [facility] Last Admin: 10/02/21 21:31 Dose: 25 mg Documented by: Lidocaine (Lidocaine 4 % Patch Adh..Patch) 1 patch TRANSDERMA DAILY [facility]PL[facility]; Protocol Last Admin: 10/02/21 09:19 Dose: Not Given Documented by: Lidocaine (Lidocaine 4 % Patch Adh..Patch) 1 patch TRANSDERMA DAILY [facility]PL[facility] BY [facility]; Protocol Last Admin: 10/02/21 09:19 Dose: Not Given Documented by: [place] Carbonate ([place] Carbonate 300 Mg Tablet) 300 mg PO BID [facility] Last Admin: 10/02/21 21:34 Dose: 300 mg Documented by: Lorazepam (Lorazepam 1 Mg Tablet) 1 mg PO Q8H PRN PRN Reason: agitation, anxiety Last Admin: 10/02/21 21:41 Dose: 1 mg Documented by: Magnesium Citrate (Magnesium Citrate 300 Ml Solution) 300 ml PO DAILY PRN PRN Reason: Constipation Last Admin: 10/01/21 19:40 Dose: 300 ml Documented by: Magnesium Hydroxide (Milk Of Magnesia 30 Ml Oral.Susp) 30 ml PO DAILY PRN PRN Reason: Constipation Last Admin: 08/31/21 20:05 Dose: 30 ml Documented by: Melatonin (Melatonin 3 Mg Tablet) 9 mg PO BEDTIME [facility] Last Admin: 10/02/21 21:32 Dose: 9 mg Documented by: Mirtazapine (Mirtazapine 7.5 Mg Tablet) 7.5 mg PO BEDTIME [facility] Last Admin: 10/02/21 21:36 Dose: 7.5 mg Documented by: Multi-Ingred Cream/Lotion/Oil/Oint (Mineral Oil/Petrolatum,White 106 Gm Tube) 1 appl TOPICAL BID REPLACED BY [facility]; Protocol Last Admin: 10/02/21 21:42 Dose: Not Given Documented by: Multivitamins/Vitamin C (Multivitamin Tablet) 1 tab PO DAILY [facility]PLAC[facility] Last Admin: 10/02/21 09:16 Dose: 1 tab Documented by: Nicotine (Nicotine 14 Mg Patch.Td24) 14 mg TRANSDERMA DAILY REPLACED BY [facility] Last Admin: 10/02/21 09:14 Dose: 14 mg Documented by: Nicotine Polacrilex (Nicotine Polacrilex 2 Mg Gum) 4 mg BUCCAL Q1H PRN PRN Reason: Nicotine Cravings Last Admin: 10/02/21 18:58 Dose: 4 mg Documented by: Psyllium Hydrophilic Mucilloid (Psyllium Seed 3.4 Gm Powd.Pack) 3.4 gm PO DAILY REPLACED BY [facility] Last Admin: 10/02/21 09:14 Dose: 3.4 gm Documented by: Quetiapine Fumarate (Quetiapine Fumarate 200 Mg Tablet) 200 mg PO Q6H PRN PRN Reason: anxiety/restlessness Last Admin: 09/21/21 02:38 Dose: 200 mg Documented by: Quetiapine Fumarate (Quetiapine Fumarate 100 Mg Tablet) 100 mg PO DAILY [facility]PLACED BY [facility] Last Admin: 10/02/21 09:16 Dose: 100 mg Documented by: Quetiapine Fumarate (Quetiapine Fumarate 300 Mg Tablet) 600 mg PO BEDTIME REPLACED BY [facility] Last Admin: 10/02/21 21:34 Dose: 600 mg Documented by: Ropinirole HCl (Ropinirole Hcl 1 Mg Tablet) 2 mg PO 1900 REPLACED BY [facility] Last Admin: 10/02/21 18:55 Dose: 2 mg Documented by: Ropinirole HCl (Ropinirole Hcl 0.5 Mg Tablet) 0.5 mg PO 0800 REPLACED BY [facility] Last Admin: 10/02/21 09:14 Dose: 0.5 mg Documented by: Senna/Docusate Sodium (Sennosides/Docusate Sodium Tablet) 1 tab PO BID REPLACED BY [facility] Last Admin: 10/02/21 21:32 Dose: Not Given Documented by: Simethicone (Simethicone 80 Mg Tab.Chew) 80 mg PO QIDWMHS PRN PRN Reason: indigestion Sodium Chloride (Sodium Chloride 0.65 % Nasal 44 Ml Sprbtl) 1 spray NOSTRIL-B Q1H PRN PRN Reason: congestion Last Admin: 09/29/21 13:37 Dose: 1 spray Documented by: Trolamine Salicylate/Aloe Vera (Trolamine Salicylate 10%/Aloe Cream 35.4 Gm) 1 appl TOPICAL TID PRN PRN Reason: sciatica Last Admin: 09/03/21 05:27 Dose: 1 appl Documented by: Ziprasidone (Ziprasidone 20 Mg Capsule) 20 mg PO BID PRN PRN Reason: psychosis Allergies Allergies Allergy/AdvReac Type Severity Reaction Status Date / Time aripiprazole [From Abilify] Allergy Unknown Involuntary Verified 08/19/21 07:20 Spasms chlorpromazine Allergy Unknown Nausea and Verified 08/19/21 07:20 [From Thorazine] Vomiting haloperidol [From Haldol] Allergy Unknown Involuntary Verified 08/19/21 07:20 Spasms olanzapine [From Zyprexa] Allergy Unknown Involuntary Verified 08/19/21 07:20 Spasms paliperidone [From Invega] Allergy Unknown Hallucinati Verified 08/19/21 07:20 ons risperidone Allergy Unknown Involuntary Verified 08/19/21 07:20 Spasms Assessment & Plan Assessment & Plan (1) Schizoaffective disorder, bipolar type: Status: Acute Code(s): F25.0 - Schizoaffective disorder, bipolar type Assessment and Plan: 10/02/21- Continue current plan Discharge planning. Referral to rest home setting patient agreeable not overtly psychotic or manic when seen (2) Lumbar radiculopathy: Status: Acute Code(s): M54.16 - Radiculopathy, lumbar region (3) Hip pain, left: Status: Acute Code(s): M25.552 - Pain in left hip Plan 09/20/21- Improving. Transition planning with [facility]. Pt is looking at discharge to a rest home and transitioning to [facility] services in [facility]. No medication changes today. 09/21: stable on current medications. on seroquel and lithium, c/o of hip pain on ibuprofen with partial response. no behavioral concerns. no overt delusional content nor psychosis noted. 09/22/21: Continue plan of care. 09/23/21: Ortho consult-Left hip pain Pt has requested a flu shot. Discharge planning-pt considering a rest home as a temporary placement. 09/24 continue per primary treatment team. 09/25: no med changes, pt is sig less manic 09/27/21: Continue plan of care. Transitioning from [facility] to local office. 09/28/21: Continue plan of care. Support in transition and discharge planning. Refusal of [place] discussed with Blanca. Discussed other options- she will consider. 10/01/21: Continue plan of care. Fe, TIBC, ESR, CRP, RF, Vit D, CCP 10/03/21: Discontinue clonidine, mirtazapine Change diclofenic to 50 mg tid I spent 25 minutes with the patient and/or on the patient floor today, greater than?50% of which was spent counseling/coordinating care. Patient educated on: medication risk/benefits Informed Consent: understands Reason for contiued inpatient stay Substantial Risk for: harm to self, inability to function and rapid decompensation
[2021-10-03] MEDS: Nicotine 14 MG PATCH.TD24 TRANSDERMA (09:35)
[2021-10-03] MEDS: Diclofenac Sodium Delayed Rel 75 MG TABLET.DR PO (09:35)
[2021-10-03] MEDS: rOPINIRole HCL 0.5 MG TABLET PO (09:35)
[2021-10-03] MEDS: Sennosides/Docusate Sodium TABLET 1 TAB PO ×2 (09:35→19:55)
[2021-10-03] MEDS: Nicotine Polacrilex 2 MG GUM 4 MG BUCCAL ×3 (09:35→21:07)
[2021-10-03] MEDS: QUEtiapine Fumarate 100 MG TABLET PO (09:36)
[2021-10-03] MEDS: Multivitamin TABLET 1 TAB PO (09:36)
[2021-10-03] MEDS: Cyanocobalamin (Vitamin B-12) 100 MCG TABLET PO (09:36)
[2021-10-03] MEDS: amLODIPine Besylate 2.5 MG TABLET PO (09:36)
[2021-10-03] MEDS: Lithium Carbonate 300 MG TABLET PO ×2 (09:36→19:57)
[2021-10-03] MEDS: Gabapentin 400 MG CAPSULE 800 MG PO ×3 (09:36→19:58)
[2021-10-03 09:43] VITALS: BP 120/67; PULSE 87; RESP 14; TEMP 36.2; O2SAT 97
[2021-10-03 18:00] VITALS: BP 122/66; PULSE 87; RESP 16; TEMP 36.5; O2SAT 96
[2021-10-03] MEDS: QUEtiapine Fumarate 300 MG TABLET 600 MG PO (19:56)
[2021-10-03] MEDS: Diclofenac Sodium Delayed Rel 50 MG TABLET.DR PO (19:56)
[2021-10-03] MEDS: Melatonin 3 MG TABLET 9 MG PO (19:57)
[2021-10-03] MEDS: hydrOXYzine HCL 25 MG TABLET PO (19:58)
[2021-10-03] MEDS: rOPINIRole HCL 1 MG TABLET 2 MG PO (20:05)
[2021-10-03] MEDS: Magnesium Citrate 300 ML SOLUTION PO (21:07)
[2021-10-03] MEDS: LORazepam 1 MG TABLET PO (21:07)
[2021-10-04] MEDS: Nicotine 14 MG PATCH.TD24 TRANSDERMA (10:15)
[2021-10-04] MEDS: Gabapentin 400 MG CAPSULE 800 MG PO ×3 (10:16→20:15)
[2021-10-04] MEDS: QUEtiapine Fumarate 100 MG TABLET PO (10:16)
[2021-10-04] MEDS: amLODIPine Besylate 2.5 MG TABLET PO (10:16)
[2021-10-04] MEDS: rOPINIRole HCL 0.5 MG TABLET PO (10:16)
[2021-10-04] MEDS: Nicotine Polacrilex 2 MG GUM 4 MG BUCCAL ×3 (10:16→20:15)
[2021-10-04] MEDS: Multivitamin TABLET 1 TAB PO (10:16)
[2021-10-04] MEDS: Sennosides/Docusate Sodium TABLET 1 TAB PO (10:16)
[2021-10-04] MEDS: Cyanocobalamin (Vitamin B-12) 100 MCG TABLET PO (10:16)
[2021-10-04] MEDS: Diclofenac Sodium Delayed Rel 50 MG TABLET.DR PO ×3 (10:16→20:15)
[2021-10-04] MEDS: Lithium Carbonate 300 MG TABLET PO ×2 (10:17→20:15)
[2021-10-04 10:31] VITALS: BP 143/83; PULSE 85; RESP 16; TEMP 37.2
--- NOTE | 2021-10-04 15:43 | P.PNPSI_ITS ---
Subjective Subjective Date of Service: 10/04/21 Reason For Visit: Bipolar, Schizoaffective Interim History: Blanca reports she has been thinking about her behavior when first admitted and asks if she should apologize to anyone. She is reflective of her symptoms which we discussed as symptoms vs behavior. She plans to interview with a rest home this week and reports she is feeling anxious. Denies medication side effects at this time. Does report hip pain with some improvement. Feels in good emotional control for continued work up recommended by neurology. Will proceed. Medication Compliance: Yes Side effects from medications: No Attending Groups: Intermittent Review of Systems Acute medical concerns: No Medical Review of Systems: unchanged Review of Systems Reports behavioral changes Psychiatric: Reports abnormal sleep pattern, Reports anxiety, Reports behavioral changes, Reports depression, Reports hopelessness and Reports anhedonia Mental Status Exam Mental Status Exam Patient Appearance: Appropriate Patient Orientation: Person, Place, Time and Situation Level of Consciousness: Alert Patient Behavior: Appropriate, Talkative, Cooperative and Good Eye Contact Mood Description: Apprehensive Affect Description: Constricted Patient Cognition Impaired: No Ability to Follow Directions: Good Speech Pattern: Clear and Spontaneous Speech Memory Description: Intact Hallucinations: Auditory Delusions: Paranoid Ideation Perceptual Disturbances: Depersonalization and Derealization Thought Process: Goal Oriented Thought Content: positive for Goal Oriented and positive for Suicidal Ideation (denies) Depressive Symptoms: Low Self Esteem Judgement: Good Diagnostics Vital Signs (24Hr): Vital Signs - 24 hr 10/03/21 18:00 10/04/21 10:31 Temperature 97.7 F 99.0 F Pulse Rate 87 85 Respiratory Rate 16 16 Blood Pressure 122/66 143/83 H Pulse Oximetry 96 BMI result Body Mass Index 32.8 Imaging Radiology Impressions: ITS Impressions Abdomen Ultrasound 09/01/21 08:59 IMPRESSION: Slightly echogenic liver. Limited evaluation of the gallbladder as the patient has recently eaten. No gallstone seen. Limited visualization of the pancreas. Hip X-Ray 09/16/21 14:47 IMPRESSION: Moderate to severe left hip arthritis. Medications Medications Current Medications Acetaminophen (Acetaminophen 325 Mg Tablet) 975 mg PO Q6H PRN PRN Reason: Headache/Pain Mild Scale (1-3) Last Admin: 10/02/21 17:01 Dose: 975 mg Documented by: Al Hydroxide/Mg Hydroxide (Magnesium Hydrox/Alum Hydrox 30 Ml Oral.Susp) 30 ml PO Q6H PRN PRN Reason: Heartburn/Nausea Last Admin: 08/22/21 05:54 Dose: 30 ml Documented by: Amlodipine Besylate (Amlodipine Besylate 2.5 Mg Tablet) 2.5 mg PO DAILY [facility]; Protocol Last Admin: 10/04/21 10:16 Dose: 2.5 mg Documented by: Artificial Tears (Artificial Tears 15 Ml Drops) 2 drop EYE-BOTH Q4H PRN PRN Reason: Dry Eyes Last Admin: 09/21/21 17:50 Dose: 2 drop Documented by: Aspirin (Aspirin Enteric Coated 325 Mg Tablet.) 650 mg PO DAILY PRN PRN Reason: headache Last Admin: 09/06/21 12:18 Dose: 650 mg Documented by: Benzocaine (Benzocaine 20 % Oral Gel 9 Gm Tube) 1 appl MUCOUS MEM QID PRN; Protocol PRN Reason: Mouth Sore Pain Last Admin: 08/31/21 03:05 Dose: 1 appl Documented by: Calcium Carbonate (Calcium Carbonate 500 Mg Tablet) 500 mg PO DAILY [facility] Last Admin: 10/04/21 10:16 Dose: 500 mg Documented by: [place] Butter/Zinc Oxide ([place] Butter/Zinc Oxide Supp.Rect) 1 supp [place] BEDTIME PRN PRN Reason: hemorrhoid pain Last Admin: 09/13/21 21:15 Dose: 1 supp Documented by: Cyanocobalamin (Cyanocobalamin (Vitamin B-12) 100 Mcg Tablet) 100 mcg PO DAILY [facility] Last Admin: 10/04/21 10:16 Dose: 100 mcg Documented by: Diclofenac Sodium (Diclofenac Sodium Delayed Rel 50 Mg Tablet.) 50 mg PO TID [facility] Last Admin: 10/04/21 14:49 Dose: 50 mg Documented by: Diphenhydramine HCl (Diphenhydramine Hcl 25 Mg Tablet) 50 mg PO Q6H PRN PRN Reason: eps Last Admin: 09/22/21 23:48 Dose: 50 mg Documented by: Gabapentin (Gabapentin 400 Mg Capsule) 800 mg PO TID [facility] Last Admin: 10/04/21 14:49 Dose: 800 mg Documented by: Gabapentin (Gabapentin 100 Mg Capsule) 100 mg PO TID PRN PRN Reason: neuropathic pain Last Admin: 09/26/21 17:14 Dose: 100 mg Documented by: Hydroxyzine HCl (Hydroxyzine Hcl 25 Mg Tablet) 25 mg PO BEDTIME PRN PRN Reason: Anxiety Last Admin: 09/22/21 23:48 Dose: 25 mg Documented by: Hydroxyzine HCl (Hydroxyzine Hcl 25 Mg Tablet) 25 mg PO BEDTIME [facility] Last Admin: 10/03/21 19:58 Dose: 25 mg Documented by: Lidocaine (Lidocaine 4 % Patch Adh..Patch) 1 patch TRANSDERMA DAILY [facility]; Protocol Last Admin: 10/04/21 10:17 Dose: Not Given Documented by: Lidocaine (Lidocaine 4 % Patch Adh..Patch) 1 patch TRANSDERMA DAILY [facility]; Protocol Last Admin: 10/04/21 10:17 Dose: Not Given Documented by: [place] Carbonate ([place] Carbonate 300 Mg Tablet) 300 mg PO BID [facility] Last Admin: 10/04/21 10:17 Dose: 300 mg Documented by: Lorazepam (Lorazepam 1 Mg Tablet) 1 mg PO Q8H PRN PRN Reason: agitation, anxiety Last Admin: 10/03/21 21:07 Dose: 1 mg Documented by: Magnesium Citrate (Magnesium Citrate 300 Ml Solution) 300 ml PO DAILY PRN PRN Reason: Constipation Last Admin: 10/03/21 21:07 Dose: 300 ml Documented by: Magnesium Hydroxide (Milk Of Magnesia 30 Ml Oral.Susp) 30 ml PO DAILY PRN PRN Reason: Constipation Last Admin: 08/31/21 20:05 Dose: 30 ml Documented by: Melatonin (Melatonin 3 Mg Tablet) 9 mg PO BEDTIME [facility] Last Admin: 10/03/21 19:57 Dose: 9 mg Documented by: Multi-Ingred Cream/Lotion/Oil/Oint (Mineral Oil/Petrolatum,White 106 Gm Tube) 1 appl TOPICAL BID [facility]; Protocol Last Admin: 10/04/21 10:17 Dose: Not Given Documented by: Multivitamins/Vitamin C (Multivitamin Tablet) 1 tab PO DAILY [facility] Last Admin: 10/04/21 10:16 Dose: 1 tab Documented by: Nicotine (Nicotine 14 Mg Patch.Td24) 14 mg TRANSDERMA DAILY [facility] Last Admin: 10/04/21 10:15 Dose: 14 mg Documented by: Nicotine Polacrilex (Nicotine Polacrilex 2 Mg Gum) 4 mg BUCCAL Q1H PRN PRN Reason: Nicotine Cravings Last Admin: 10/04/21 10:16 Dose: 4 mg Documented by: Psyllium Hydrophilic Mucilloid (Psyllium Seed 3.4 Gm Powd.Pack) 3.4 gm PO DAILY [facility] Last Admin: 10/04/21 10:15 Dose: 3.4 gm Documented by: Quetiapine Fumarate (Quetiapine Fumarate 200 Mg Tablet) 200 mg PO Q6H PRN PRN Reason: anxiety/restlessness Last Admin: 09/21/21 02:38 Dose: 200 mg Documented by: Quetiapine Fumarate (Quetiapine Fumarate 100 Mg Tablet) 100 mg PO DAILY [facility] Last Admin: 10/04/21 10:16 Dose: 100 mg Documented by: Quetiapine Fumarate (Quetiapine Fumarate 300 Mg Tablet) 600 mg PO BEDTIME [facility] Last Admin: 10/03/21 19:56 Dose: 600 mg Documented by: Ropinirole HCl (Ropinirole Hcl 1 Mg Tablet) 2 mg PO 1900 [facility] Last Admin: 10/03/21 20:05 Dose: 2 mg Documented by: Ropinirole HCl (Ropinirole Hcl 0.5 Mg Tablet) 0.5 mg PO 0800 [facility] Last Admin: 10/04/21 10:16 Dose: 0.5 mg Documented by: Senna/Docusate Sodium (Sennosides/Docusate Sodium Tablet) 1 tab PO BID [facility] Last Admin: 10/04/21 10:16 Dose: 1 tab Documented by: Simethicone (Simethicone 80 Mg Tab.Chew) 80 mg PO QIDWMHS PRN PRN Reason: indigestion Sodium Chloride (Sodium Chloride 0.65 % Nasal 44 Ml Sprbtl) 1 spray NOSTRIL-B Q1H PRN PRN Reason: congestion Last Admin: 09/29/21 13:37 Dose: 1 spray Documented by: Trolamine Salicylate/Aloe Vera (Trolamine Salicylate 10%/Aloe Cream 35.4 Gm) 1 appl TOPICAL TID PRN PRN Reason: sciatica Last Admin: 09/03/21 05:27 Dose: 1 appl Documented by: Ziprasidone (Ziprasidone 20 Mg Capsule) 20 mg PO BID PRN PRN Reason: psychosis Allergies Allergies Allergy/AdvReac Type Severity Reaction Status Date / Time aripiprazole [From [facility]] Allergy Unknown Involuntary Verified 08/19/21 07:20 Spasms chlorpromazine Allergy Unknown Nausea and Verified 08/19/21 07:20 [From Thorazine] Vomiting haloperidol [From Haldol] Allergy Unknown Involuntary Verified 08/19/21 07:20 Spasms olanzapine [From Zyprexa] Allergy Unknown Involuntary Verified 08/19/21 07:20 Spasms paliperidone [From Invega] Allergy Unknown Hallucinati Verified 08/19/21 07:20 ons risperidone Allergy Unknown Involuntary Verified 08/19/21 07:20 Spasms Assessment & Plan Assessment & Plan (1) Schizoaffective disorder, bipolar type: Status: Acute Code(s): F25.0 - Schizoaffective disorder, bipolar type Assessment and Plan: 10/04/21- Continue current plan Discharge planning. Referral to rest home setting patient agreeable not overtly psychotic or manic when seen Continue eval recommended by neurology for hip pain-pt reports she is feeling in good control to continue testing recommended. (2) Lumbar radiculopathy: Status: Acute Code(s): M54.16 - Radiculopathy, lumbar region (3) Hip pain, left: Status: Acute Code(s): M25.552 - Pain in left hip Plan 09/20/21- Improving. Transition planning with [facility]. Pt is looking at discharge to a rest home and transitioning to [facility] services in [facility]. No medication changes today. 09/21: stable on current medications. on seroquel and lithium, c/o of hip pain on ibuprofen with partial response. no behavioral concerns. no overt delusional content nor psychosis noted. 09/22/21: Continue plan of care. 09/23/21: Ortho consult-Left hip pain Pt has requested a flu shot. Discharge planning-pt considering a rest home as a temporary placement. 09/24 continue per primary treatment team. 09/25: no med changes, pt is sig less manic 09/27/21: Continue plan of care. Transitioning from [facility] to local office. 09/28/21: Continue plan of care. Support in transition and discharge planning. Refusal of [place] discussed with Blanca. Discussed other options- she will consider. 10/01/21: Continue plan of care. Fe, TIBC, ESR, CRP, RF, Vit D, CCP 10/03/21: Discontinue clonidine, mirtazapine Change diclofenic to 50 mg tid I spent 20 minutes with the patient and/or on the patient floor today, greater than?50% of which was spent counseling/coordinating care. Patient educated on: medication risk/benefits, therapeutic strategies and medical condition Informed Consent: understands Reason for contiued inpatient stay Substantial Risk for: inability to function and rapid decompensation
[2021-10-04] MEDS: Acetaminophen 325 MG TABLET 975 MG PO (16:39)
[2021-10-04] MEDS: Artificial Tears 15 ML DROPS 2 DROP EYE-BOTH (16:40)
[2021-10-04 18:00] VITALS: BP 124/82; PULSE 84; TEMP 37.2
[2021-10-04] MEDS: rOPINIRole HCL 1 MG TABLET 2 MG PO (20:14)
[2021-10-04] MEDS: Melatonin 3 MG TABLET 9 MG PO (22:01)
[2021-10-04] MEDS: QUEtiapine Fumarate 300 MG TABLET 600 MG PO (22:01)
[2021-10-04] MEDS: LORazepam 1 MG TABLET PO (22:06)
[2021-10-05 06:00] VITALS: BP 133/86; PULSE 86; RESP 16; TEMP 36.9; O2SAT 96
[2021-10-05] MEDS: Nicotine Polacrilex 2 MG GUM 4 MG BUCCAL ×3 (09:13→20:06)
[2021-10-05] MEDS: Nicotine 14 MG PATCH.TD24 TRANSDERMA (09:13)
[2021-10-05] MEDS: Lithium Carbonate 300 MG TABLET PO ×2 (09:14→21:40)
[2021-10-05] MEDS: rOPINIRole HCL 0.5 MG TABLET PO (09:14)
[2021-10-05] MEDS: Sennosides/Docusate Sodium TABLET 1 TAB PO ×2 (09:14→21:39)
[2021-10-05] MEDS: Gabapentin 400 MG CAPSULE 800 MG PO ×3 (09:14→21:39)
[2021-10-05] MEDS: Diclofenac Sodium Delayed Rel 50 MG TABLET.DR PO ×3 (09:15→21:40)
[2021-10-05] MEDS: Multivitamin TABLET 1 TAB PO (09:15)
[2021-10-05] MEDS: QUEtiapine Fumarate 100 MG TABLET PO (09:15)
[2021-10-05] MEDS: amLODIPine Besylate 2.5 MG TABLET PO (09:15)
[2021-10-05] MEDS: Cyanocobalamin (Vitamin B-12) 100 MCG TABLET PO (09:15)
[2021-10-05 13:16] LABS: Cyclic Citrullinated Peptide <16 UNITS
[2021-10-05] MEDS: Acetaminophen 325 MG TABLET 975 MG PO (14:19)
--- NOTE | 2021-10-05 17:44 | P.PNPSI_ITS ---
Subjective Subjective Date of Service: 10/05/21 Reason For Visit: Bipolar, Schizoaffective Subjective Notes: Conditional Voluntary Interim History: Reading when seen today. States no issues of concern. I just worry [facility] will not send my check, SS Card and identification information. Denies pain, denies med SE. Believes pain regime to be more helpful. Medication Compliance: Yes Side effects from medications: No Attending Groups: Yes Review of Systems Acute medical concerns: No Medical Review of Systems: unchanged Review of Systems Reports behavioral changes Psychiatric: Reports anxiety and Reports behavioral changes Mental Status Exam Mental Status Exam Patient Appearance: Appropriate Patient Orientation: Person, Place, Time and Situation Level of Consciousness: Alert Patient Behavior: Appropriate, Talkative, Cooperative and Good Eye Contact Mood Description: Anxious and Apprehensive Affect Description: Constricted and Anxious Patient Cognition Impaired: No Ability to Follow Directions: Good Speech Pattern: Clear and Spontaneous Speech Memory Description: Intact Hallucinations: Auditory Delusions: Paranoid Ideation Perceptual Disturbances: Depersonalization and Derealization Thought Process: Goal Oriented Thought Content: positive for Goal Oriented and positive for Suicidal Ideation (denies) Depressive Symptoms: Increased Anxiety and Low Self Esteem Judgement: Good Diagnostics Vital Signs (24Hr): Vital Signs - 24 hr 10/04/21 18:00 10/05/21 06:00 Temperature 98.9 F 98.4 F Pulse Rate 84 86 Respiratory Rate 16 Blood Pressure 124/82 133/86 Pulse Oximetry 96 BMI result Body Mass Index 32.8 Labs Labs: Laboratory Results - last 48 hr 10/02/21 07:24 Cycl Citrul Peptide IgG <16 Imaging Radiology Impressions: ITS Impressions Abdomen Ultrasound 09/01/21 08:59 IMPRESSION: Slightly echogenic liver. Limited evaluation of the gallbladder as the patient has recently eaten. No gallstone seen. Limited visualization of the pancreas. Hip X-Ray 09/16/21 14:47 IMPRESSION: Moderate to severe left hip arthritis. Medications Medications Current Medications Acetaminophen (Acetaminophen 325 Mg Tablet) 975 mg PO Q6H PRN PRN Reason: Headache/Pain Mild Scale (1-3) Last Admin: 10/05/21 14:19 Dose: 975 mg Documented by: Al Hydroxide/Mg Hydroxide (Magnesium Hydrox/Alum Hydrox 30 Ml Oral.Susp) 30 ml PO Q6H PRN PRN Reason: Heartburn/Nausea Last Admin: 08/22/21 05:54 Dose: 30 ml Documented by: Amlodipine Besylate (Amlodipine Besylate 2.5 Mg Tablet) 2.5 mg PO DAILY [facility]; Protocol Last Admin: 10/05/21 09:15 Dose: 2.5 mg Documented by: Artificial Tears (Artificial Tears 15 Ml Drops) 2 drop EYE-BOTH Q4H PRN PRN Reason: Dry Eyes Last Admin: 10/04/21 16:40 Dose: 2 drop Documented by: Aspirin (Aspirin Enteric Coated 325 Mg Tablet.) 650 mg PO DAILY PRN PRN Reason: headache Last Admin: 09/06/21 12:18 Dose: 650 mg Documented by: Benzocaine (Benzocaine 20 % Oral Gel 9 Gm Tube) 1 appl MUCOUS MEM QID PRN; Protocol PRN Reason: Mouth Sore Pain Last Admin: 08/31/21 03:05 Dose: 1 appl Documented by: Calcium Carbonate (Calcium Carbonate 500 Mg Tablet) 500 mg PO DAILY [facility] Last Admin: 10/05/21 09:15 Dose: 500 mg Documented by: [place] Butter/Zinc Oxide ([place] Butter/Zinc Oxide Supp.Rect) 1 supp [place] BEDTIME PRN PRN Reason: hemorrhoid pain Last Admin: 09/13/21 21:15 Dose: 1 supp Documented by: Cyanocobalamin (Cyanocobalamin (Vitamin B-12) 100 Mcg Tablet) 100 mcg PO DAILY [facility] Last Admin: 10/05/21 09:15 Dose: 100 mcg Documented by: Diclofenac Sodium (Diclofenac Sodium Delayed Rel 50 Mg Tablet.) 50 mg PO TID [facility] Last Admin: 10/05/21 14:19 Dose: 50 mg Documented by: Diphenhydramine HCl (Diphenhydramine Hcl 25 Mg Tablet) 50 mg PO Q6H PRN PRN Reason: eps Last Admin: 09/22/21 23:48 Dose: 50 mg Documented by: Gabapentin (Gabapentin 400 Mg Capsule) 800 mg PO TID [facility] Last Admin: 10/05/21 14:19 Dose: 800 mg Documented by: Gabapentin (Gabapentin 100 Mg Capsule) 100 mg PO TID PRN PRN Reason: neuropathic pain Last Admin: 09/26/21 17:14 Dose: 100 mg Documented by: Hydroxyzine HCl (Hydroxyzine Hcl 25 Mg Tablet) 25 mg PO BEDTIME PRN PRN Reason: Anxiety Last Admin: 09/22/21 23:48 Dose: 25 mg Documented by: Hydroxyzine HCl (Hydroxyzine Hcl 25 Mg Tablet) 25 mg PO BEDTIME [facility] Last Admin: 10/04/21 20:58 Dose: Not Given Documented by: Lidocaine (Lidocaine 4 % Patch Adh..Patch) 1 patch TRANSDERMA DAILY [facility]; Protocol Last Admin: 10/05/21 09:19 Dose: Not Given Documented by: Lidocaine (Lidocaine 4 % Patch Adh..Patch) 1 patch TRANSDERMA DAILY [facility]; Protocol Last Admin: 10/05/21 09:19 Dose: Not Given Documented by: [place] Carbonate ([place] Carbonate 300 Mg Tablet) 300 mg PO BID [facility] Last Admin: 10/05/21 09:14 Dose: 300 mg Documented by: Lorazepam (Lorazepam 1 Mg Tablet) 1 mg PO Q8H PRN PRN Reason: agitation, anxiety Last Admin: 10/04/21 22:06 Dose: 1 mg Documented by: Magnesium Citrate (Magnesium Citrate 300 Ml Solution) 300 ml PO DAILY PRN PRN Reason: Constipation Last Admin: 10/03/21 21:07 Dose: 300 ml Documented by: Magnesium Hydroxide (Milk Of Magnesia 30 Ml Oral.Susp) 30 ml PO DAILY PRN PRN Reason: Constipation Last Admin: 08/31/21 20:05 Dose: 30 ml Documented by: Melatonin (Melatonin 3 Mg Tablet) 9 mg PO BEDTIME [facility] Last Admin: 10/04/21 22:01 Dose: 9 mg Documented by: Multi-Ingred Cream/Lotion/Oil/Oint (Mineral Oil/Petrolatum,White 106 Gm Tube) 1 appl TOPICAL BID [facility]; Protocol Last Admin: 10/05/21 09:19 Dose: Not Given Documented by: Multivitamins/Vitamin C (Multivitamin Tablet) 1 tab PO DAILY [facility] Last Admin: 10/05/21 09:15 Dose: 1 tab Documented by: Nicotine (Nicotine 14 Mg Patch.Td24) 14 mg TRANSDERMA DAILY [facility] Last Admin: 10/05/21 09:13 Dose: 14 mg Documented by: Nicotine Polacrilex (Nicotine Polacrilex 2 Mg Gum) 4 mg BUCCAL Q1H PRN PRN Reason: Nicotine Cravings Last Admin: 10/05/21 14:19 Dose: 4 mg Documented by: Psyllium Hydrophilic Mucilloid (Psyllium Seed 3.4 Gm Powd.Pack) 3.4 gm PO DAILY [facility] Last Admin: 10/05/21 09:13 Dose: 3.4 gm Documented by: Quetiapine Fumarate (Quetiapine Fumarate 200 Mg Tablet) 200 mg PO Q6H PRN PRN Reason: anxiety/restlessness Last Admin: 09/21/21 02:38 Dose: 200 mg Documented by: Quetiapine Fumarate (Quetiapine Fumarate 100 Mg Tablet) 100 mg PO DAILY [facility] Last Admin: 10/05/21 09:15 Dose: 100 mg Documented by: Quetiapine Fumarate (Quetiapine Fumarate 300 Mg Tablet) 600 mg PO BEDTIME [facility] Last Admin: 10/04/21 22:01 Dose: 600 mg Documented by: Ropinirole HCl (Ropinirole Hcl 1 Mg Tablet) 2 mg PO 1900 [facility] Last Admin: 10/04/21 20:14 Dose: 2 mg Documented by: Ropinirole HCl (Ropinirole Hcl 0.5 Mg Tablet) 0.5 mg PO 0800 [facility] Last Admin: 10/05/21 09:14 Dose: 0.5 mg Documented by: Senna/Docusate Sodium (Sennosides/Docusate Sodium Tablet) 1 tab PO BID [facility] Last Admin: 10/05/21 09:14 Dose: 1 tab Documented by: Simethicone (Simethicone 80 Mg Tab.Chew) 80 mg PO QIDWMHS PRN PRN Reason: indigestion Sodium Chloride (Sodium Chloride 0.65 % Nasal 44 Ml Sprbtl) 1 spray NOSTRIL-B Q1H PRN PRN Reason: congestion Last Admin: 09/29/21 13:37 Dose: 1 spray Documented by: Trolamine Salicylate/Aloe Vera (Trolamine Salicylate 10%/Aloe Cream 35.4 Gm) 1 appl TOPICAL TID PRN PRN Reason: sciatica Last Admin: 09/03/21 05:27 Dose: 1 appl Documented by: Ziprasidone (Ziprasidone 20 Mg Capsule) 20 mg PO BID PRN PRN Reason: psychosis Allergies Allergies Allergy/AdvReac Type Severity Reaction Status Date / Time aripiprazole [From Abilify] Allergy Unknown Involuntary Verified 08/19/21 07:20 Spasms chlorpromazine Allergy Unknown Nausea and Verified 08/19/21 07:20 [From Thorazine] Vomiting haloperidol [From Haldol] Allergy Unknown Involuntary Verified 08/19/21 07:20 Spasms olanzapine [From Zyprexa] Allergy Unknown Involuntary Verified 08/19/21 07:20 Spasms paliperidone [From Invega] Allergy Unknown Hallucinati Verified 08/19/21 07:20 ons risperidone Allergy Unknown Involuntary Verified 08/19/21 07:20 Spasms Assessment & Plan Assessment & Plan (1) Schizoaffective disorder, bipolar type: Status: Acute Code(s): F25.0 - Schizoaffective disorder, bipolar type Assessment and Plan: 10/05/21- Continue current plan (2) Lumbar radiculopathy: Status: Acute Code(s): M54.16 - Radiculopathy, lumbar region (3) Hip pain, left: Status: Acute Code(s): M25.552 - Pain in left hip Plan 09/20/21- Improving. Transition planning with [facility]. Pt is looking at discharge to a rest home and transitioning to [facility] services in [facility]. No medication changes today. 09/21: stable on current medications. on seroquel and lithium, c/o of hip pain on ibuprofen with partial response. no behavioral concerns. no overt delusional content nor psychosis noted. 09/22/21: Continue plan of care. 09/23/21: Ortho consult-Left hip pain Pt has requested a flu shot. Discharge planning-pt considering a rest home as a temporary placement. 09/24 continue per primary treatment team. 09/25: no med changes, pt is sig less manic 09/27/21: Continue plan of care. Transitioning from [facility] of [facility] to local office. 09/28/21: Continue plan of care. Support in transition and discharge planning. Refusal of [place] discussed with Blanca. Discussed other options- she will consider. 10/01/21: Continue plan of care. Fe, TIBC, ESR, CRP, RF, Vit D, CCP 10/03/21: Discontinue clonidine, mirtazapine Change diclofenic to 50 mg tid I spent 20 minutes with the patient and/or on the patient floor today, greater than?50% of which was spent counseling/coordinating care. Informed Consent: understands Reason for contiued inpatient stay Substantial Risk for: inability to function and rapid decompensation
[2021-10-05 18:00] VITALS: BP 114/69; PULSE 89; RESP 18; TEMP 37.1
[2021-10-05] MEDS: Magnesium Citrate 300 ML SOLUTION PO (20:06)
[2021-10-05] MEDS: rOPINIRole HCL 1 MG TABLET 2 MG PO (20:15)
[2021-10-05] MEDS: Melatonin 3 MG TABLET 9 MG PO (21:39)
[2021-10-05] MEDS: QUEtiapine Fumarate 300 MG TABLET 600 MG PO (21:39)
[2021-10-05] MEDS: LORazepam 1 MG TABLET PO (21:40)
[2021-10-05] MEDS: Mineral Oil/Petrolatum,White 106 GM Tube 1 APPL TOPICAL (22:12)
--- NOTE | 2021-10-05 22:44 | PC.NURSE ---
pt states doesnt want to take Atarax any more
[2021-10-06] MEDS: Gabapentin 400 MG CAPSULE 800 MG PO ×3 (10:52→21:50)
[2021-10-06] MEDS: Nicotine 14 MG PATCH.TD24 TRANSDERMA (10:52)
[2021-10-06] MEDS: Nicotine Polacrilex 2 MG GUM 4 MG BUCCAL ×2 (10:52→15:49)
[2021-10-06] MEDS: Cyanocobalamin (Vitamin B-12) 100 MCG TABLET PO (10:53)
[2021-10-06] MEDS: amLODIPine Besylate 2.5 MG TABLET PO (10:53)
[2021-10-06] MEDS: Lithium Carbonate 300 MG TABLET PO ×2 (10:53→22:04)
[2021-10-06] MEDS: rOPINIRole HCL 0.5 MG TABLET PO (10:53)
[2021-10-06] MEDS: Sennosides/Docusate Sodium TABLET 1 TAB PO ×2 (10:53→21:49)
[2021-10-06] MEDS: Diclofenac Sodium Delayed Rel 50 MG TABLET.DR PO ×3 (10:53→21:49)
[2021-10-06] MEDS: Multivitamin TABLET 1 TAB PO (10:53)
[2021-10-06] MEDS: QUEtiapine Fumarate 100 MG TABLET PO (10:53)
[2021-10-06 11:24] VITALS: BP 131/65; PULSE 72; RESP 16; O2SAT 98
--- NOTE | 2021-10-06 18:54 | HO.PSYCHPN ---
Subjective Subjective Date of Service: 10/06/21 Reason For Visit: Bipolar, Schizoaffective Subjective Notes: Conditional Voluntary Interim History: Discussed anxiety regarding her finances and the PACT team turning over her financial belongings so she may pursue housing locally. I feel anxious over money. Reports medication regime to be effective. Current concerns include chronic constipation- an issue since she used opiates-discussed dietary options Medication Compliance: Yes Side effects from medications: No Attending Groups: Intermittent Review of Systems Acute medical concerns: No Medical Review of Systems: unchanged Review of Systems Reports behavioral changes Psychiatric: Reports anxiety and Reports behavioral changes Mental Status Exam Mental Status Exam Patient Appearance: Appropriate Patient Orientation: Person, Place, Time and Situation Level of Consciousness: Alert Patient Behavior: Appropriate, Talkative, Cooperative and Good Eye Contact Mood Description: Anxious and Apprehensive Affect Description: Constricted and Anxious Patient Cognition Impaired: No Ability to Follow Directions: Good Speech Pattern: Clear and Spontaneous Speech Memory Description: Intact Hallucinations: Auditory Delusions: Paranoid Ideation Perceptual Disturbances: Depersonalization and Derealization Thought Process: Goal Oriented Thought Content: positive for Goal Oriented and positive for Suicidal Ideation (denies) Depressive Symptoms: Increased Anxiety and Low Self Esteem Judgement: Good Diagnostics Vital Signs (24Hr): Vital Signs - 24 hr 10/06/21 11:24 Pulse Rate 72 Respiratory Rate 16 Blood Pressure 131/65 Pulse Oximetry 98 BMI result Body Mass Index 32.8 Labs Results: 10/07/21 08:06 Labs: Laboratory Results - last 48 hr 10/02/21 07:24 Cycl Citrul Peptide IgG <16 Imaging Radiology Impressions: ITS Impressions Abdomen Ultrasound 09/01/21 08:59 IMPRESSION: Slightly echogenic liver. Limited evaluation of the gallbladder as the patient has recently eaten. No gallstone seen. Limited visualization of the pancreas. Hip X-Ray 09/16/21 14:47 IMPRESSION: Moderate to severe left hip arthritis. Medications Medications Current Medications Acetaminophen (Acetaminophen 325 Mg Tablet) 975 mg PO Q6H PRN PRN Reason: Headache/Pain Mild Scale (1-3) Last Admin: 10/05/21 14:19 Dose: 975 mg Documented by: Al Hydroxide/Mg Hydroxide (Magnesium Hydrox/Alum Hydrox 30 Ml Oral.Susp) 30 ml PO Q6H PRN PRN Reason: Heartburn/Nausea Last Admin: 08/22/21 05:54 Dose: 30 ml Documented by: Amlodipine Besylate (Amlodipine Besylate 2.5 Mg Tablet) 2.5 mg PO DAILY [facility]; Protocol Last Admin: 10/06/21 10:53 Dose: 2.5 mg Documented by: Artificial Tears (Artificial Tears 15 Ml Drops) 2 drop EYE-BOTH Q4H PRN PRN Reason: Dry Eyes Last Admin: 10/04/21 16:40 Dose: 2 drop Documented by: Aspirin (Aspirin Enteric Coated 325 Mg Tablet.) 650 mg PO DAILY PRN PRN Reason: headache Last Admin: 09/06/21 12:18 Dose: 650 mg Documented by: Benzocaine (Benzocaine 20 % Oral Gel 9 Gm Tube) 1 appl MUCOUS MEM QID PRN; Protocol PRN Reason: Mouth Sore Pain Last Admin: 08/31/21 03:05 Dose: 1 appl Documented by: Calcium Carbonate (Calcium Carbonate 500 Mg Tablet) 500 mg PO DAILY [facility] Last Admin: 10/06/21 10:53 Dose: 500 mg Documented by: [place] Butter/Zinc Oxide ([place] Butter/Zinc Oxide Supp.Rect) 1 supp CO BEDTIME PRN PRN Reason: hemorrhoid pain Last Admin: 09/13/21 21:15 Dose: 1 supp Documented by: Cyanocobalamin (Cyanocobalamin (Vitamin B-12) 100 Mcg Tablet) 100 mcg PO DAILY [facility] Last Admin: 10/06/21 10:53 Dose: 100 mcg Documented by: Diclofenac Sodium (Diclofenac Sodium Delayed Rel 50 Mg Tablet.) 50 mg PO TID [facility] Last Admin: 10/06/21 15:49 Dose: 50 mg Documented by: Diphenhydramine HCl (Diphenhydramine Hcl 25 Mg Tablet) 50 mg PO Q6H PRN PRN Reason: eps Last Admin: 09/22/21 23:48 Dose: 50 mg Documented by: Gabapentin (Gabapentin 400 Mg Capsule) 800 mg PO TID [facility] Last Admin: 10/06/21 15:48 Dose: 800 mg Documented by: Gabapentin (Gabapentin 100 Mg Capsule) 100 mg PO TID PRN PRN Reason: neuropathic pain Last Admin: 09/26/21 17:14 Dose: 100 mg Documented by: Hydroxyzine HCl (Hydroxyzine Hcl 25 Mg Tablet) 25 mg PO BEDTIME PRN PRN Reason: Anxiety Last Admin: 09/22/21 23:48 Dose: 25 mg Documented by: Hydroxyzine HCl (Hydroxyzine Hcl 25 Mg Tablet) 25 mg PO BEDTIME [facility] Last Admin: 10/05/21 22:12 Dose: Not Given Documented by: Lidocaine (Lidocaine 4 % Patch Adh..Patch) 1 patch TRANSDERMA DAILY [facility]; Protocol Last Admin: 10/06/21 10:54 Dose: Not Given Documented by: Lidocaine (Lidocaine 4 % Patch Adh..Patch) 1 patch TRANSDERMA DAILY [facility]; Protocol Last Admin: 10/06/21 10:54 Dose: Not Given Documented by: [place] Carbonate ([place] Carbonate 300 Mg Tablet) 300 mg PO BID [facility] Last Admin: 10/06/21 10:53 Dose: 300 mg Documented by: Lorazepam (Lorazepam 1 Mg Tablet) 1 mg PO Q8H PRN PRN Reason: agitation, anxiety Last Admin: 10/05/21 21:40 Dose: 1 mg Documented by: Magnesium Citrate (Magnesium Citrate 300 Ml Solution) 300 ml PO DAILY PRN PRN Reason: Constipation Last Admin: 10/05/21 20:06 Dose: 300 ml Documented by: Magnesium Hydroxide (Milk Of Magnesia 30 Ml Oral.Susp) 30 ml PO DAILY PRN PRN Reason: Constipation Last Admin: 08/31/21 20:05 Dose: 30 ml Documented by: Melatonin (Melatonin 3 Mg Tablet) 9 mg PO BEDTIME [facility] Last Admin: 10/05/21 21:39 Dose: 9 mg Documented by: Multi-Ingred Cream/Lotion/Oil/Oint (Mineral Oil/Petrolatum,White 106 Gm Tube) 1 appl TOPICAL BID [facility]; Protocol Last Admin: 10/06/21 10:55 Dose: Not Given Documented by: Multivitamins/Vitamin C (Multivitamin Tablet) 1 tab PO DAILY [facility] Last Admin: 10/06/21 10:53 Dose: 1 tab Documented by: Nicotine (Nicotine 14 Mg Patch.Td24) 14 mg TRANSDERMA DAILY [facility] Last Admin: 10/06/21 10:52 Dose: 14 mg Documented by: Nicotine Polacrilex (Nicotine Polacrilex 2 Mg Gum) 4 mg BUCCAL Q1H PRN PRN Reason: Nicotine Cravings Last Admin: 10/06/21 15:49 Dose: 4 mg Documented by: Psyllium Hydrophilic Mucilloid (Psyllium Seed 3.4 Gm Powd.Pack) 3.4 gm PO DAILY [facility] Last Admin: 10/06/21 10:52 Dose: 3.4 gm Documented by: Quetiapine Fumarate (Quetiapine Fumarate 200 Mg Tablet) 200 mg PO Q6H PRN PRN Reason: anxiety/restlessness Last Admin: 09/21/21 02:38 Dose: 200 mg Documented by: Quetiapine Fumarate (Quetiapine Fumarate 100 Mg Tablet) 100 mg PO DAILY [facility] Last Admin: 10/06/21 10:53 Dose: 100 mg Documented by: Quetiapine Fumarate (Quetiapine Fumarate 300 Mg Tablet) 600 mg PO BEDTIME [facility] Last Admin: 10/05/21 21:39 Dose: 600 mg Documented by: Ropinirole HCl (Ropinirole Hcl 1 Mg Tablet) 2 mg PO 1900 [facility] Last Admin: 10/05/21 20:15 Dose: 2 mg Documented by: Ropinirole HCl (Ropinirole Hcl 0.5 Mg Tablet) 0.5 mg PO 0800 [facility] Last Admin: 10/06/21 10:53 Dose: 0.5 mg Documented by: Senna/Docusate Sodium (Sennosides/Docusate Sodium Tablet) 1 tab PO BID [facility] Last Admin: 10/06/21 10:53 Dose: 1 tab Documented by: Simethicone (Simethicone 80 Mg Tab.Chew) 80 mg PO QIDWMHS PRN PRN Reason: indigestion Sodium Chloride (Sodium Chloride 0.65 % Nasal 44 Ml Sprbtl) 1 spray NOSTRIL-B Q1H PRN PRN Reason: congestion Last Admin: 09/29/21 13:37 Dose: 1 spray Documented by: Trolamine Salicylate/Aloe Vera (Trolamine Salicylate 10%/Aloe Cream 35.4 Gm) 1 appl TOPICAL TID PRN PRN Reason: sciatica Last Admin: 09/03/21 05:27 Dose: 1 appl Documented by: Ziprasidone (Ziprasidone 20 Mg Capsule) 20 mg PO BID PRN PRN Reason: psychosis Allergies Allergies Allergy/AdvReac Type Severity Reaction Status Date / Time aripiprazole [From Abilify] Allergy Unknown Involuntary Verified 08/19/21 07:20 Spasms chlorpromazine Allergy Unknown Nausea and Verified 08/19/21 07:20 [From Thorazine] Vomiting haloperidol [From Haldol] Allergy Unknown Involuntary Verified 08/19/21 07:20 Spasms olanzapine [From Zyprexa] Allergy Unknown Involuntary Verified 08/19/21 07:20 Spasms paliperidone [From Invega] Allergy Unknown Hallucinati Verified 08/19/21 07:20 ons risperidone Allergy Unknown Involuntary Verified 08/19/21 07:20 Spasms Assessment & Plan Assessment & Plan (1) Schizoaffective disorder, bipolar type: Status: Acute Code(s): F25.0 - Schizoaffective disorder, bipolar type Assessment and Plan: 10/05/21- Continue current plan (2) Lumbar radiculopathy: Status: Acute Code(s): M54.16 - Radiculopathy, lumbar region (3) Hip pain, left: Status: Acute Code(s): M25.552 - Pain in left hip Plan 09/20/21- Improving. Transition planning with [facility]. Pt is looking at discharge to a rest home and transitioning to [facility] services in [facility]. No medication changes today. 09/21: stable on current medications. on seroquel and lithium, c/o of hip pain on ibuprofen with partial response. no behavioral concerns. no overt delusional content nor psychosis noted. 09/22/21: Continue plan of care. 09/23/21: Ortho consult-Left hip pain Pt has requested a flu shot. Discharge planning-pt considering a rest home as a temporary placement. 09/24 continue per primary treatment team. 09/25: no med changes, pt is sig less manic 09/27/21: Continue plan of care. Transitioning from [facility] of [facility] to local office. 09/28/21: Continue plan of care. Support in transition and discharge planning. Refusal of [place] discussed with Blanca. Discussed other options-she will consider. 10/01/21: Continue plan of care. Fe, TIBC, ESR, CRP, RF, Vit D, CCP 10/03/21: Discontinue clonidine, mirtazapine Change diclofenic to 50 mg tid 10/06/21 Continue current regime I spent 15 minutes with the patient and/or on the patient floor today, greater than?50% of which was spent counseling/coordinating care. Patient educated on: medical condition Informed Consent: understands and further education needed Reason for contiued inpatient stay Substantial Risk for: inability to function and rapid decompensation
[2021-10-06] MEDS: rOPINIRole HCL 1 MG TABLET 2 MG PO (19:51)
[2021-10-06 19:55] VITALS: BP 120/84; PULSE 82; TEMP 36.4; O2SAT 94
[2021-10-06] MEDS: QUEtiapine Fumarate 300 MG TABLET 600 MG PO (21:49)
[2021-10-06] MEDS: Melatonin 3 MG TABLET 9 MG PO (21:49)
[2021-10-06] MEDS: hydrOXYzine HCL 25 MG TABLET PO (21:49)
[2021-10-06] MEDS: LORazepam 1 MG TABLET PO (21:58)
[2021-10-07 09:25] LABS: Lithium 0.74 mmol/L (0.60-1.20)
[2021-10-07] MEDS: Nicotine Polacrilex 2 MG GUM 4 MG BUCCAL ×3 (09:27→19:49)
[2021-10-07] MEDS: Cyanocobalamin (Vitamin B-12) 100 MCG TABLET PO (09:28)
[2021-10-07] MEDS: amLODIPine Besylate 2.5 MG TABLET PO (09:28)
[2021-10-07] MEDS: Diclofenac Sodium Delayed Rel 50 MG TABLET.DR PO ×3 (09:28→19:45)
[2021-10-07] MEDS: Gabapentin 400 MG CAPSULE 800 MG PO ×3 (09:28→19:46)
[2021-10-07] MEDS: rOPINIRole HCL 0.5 MG TABLET PO (09:28)
[2021-10-07] MEDS: Sennosides/Docusate Sodium TABLET 1 TAB PO ×2 (09:28→19:46)
[2021-10-07] MEDS: QUEtiapine Fumarate 100 MG TABLET PO (09:28)
[2021-10-07] MEDS: Lithium Carbonate 300 MG TABLET PO ×2 (09:29→19:46)
[2021-10-07] MEDS: Multivitamin TABLET 1 TAB PO (09:29)
[2021-10-07 09:30] LABS: Alanine Aminotransferase 25 U/L (0-31); Alkaline Phosphatase 83 U/L (39-117); Anion Gap 13 (12-20); Aspartate Amino Transferase 17 U/L (5-31); Bilirubin Total 0.5 mg/dL (0.0-1.0); Blood Urea Nitrogen 30 mg/dL (9-16); Calcium 9.8 mg/dL (8.4-10.2); Carbon Dioxide 26 mmol/L (22-29); Chloride 104 mmol/L (96-108); Estimated Glomerular Filt Rate 60; Glucose Random 125 mg/dL (60-115); Potassium 4.8 mmol/L (3.3-5.1); Sodium 138 mmol/L (135-145); Total Protein 6.4 g/dL (6.5-8.0)
[2021-10-07 09:34] VITALS: BP 142/97; PULSE 90; RESP 16; TEMP 36.9; O2SAT 96
[2021-10-07 09:51] LABS: Thyroid Stimulating Hormone 4.49 uIU/mL (0.32-4.0)
[2021-10-07 13:17] LABS: Vitamin D 25-OH, D2 <4 ng/mL; Vitamin D 25-OH, D3 23 ng/mL; Vitamin D 25-OH, Total 23 ng/mL (30-100)
--- NOTE | 2021-10-07 16:59 | HO.PSYCHPN ---
Subjective Subjective Date of Service: 10/07/21 Reason For Visit: Bipolar, Schizoaffective Subjective Notes: Conditional Voluntary Healthcare Proxy: No Guardianship: No Medical Problems Affecting Mental Status: No Interim History: Blanca reporting chronic constipation. Discussed adding high fiber to diet and colace 100 bid. Encouraged increase in fluids as well. Continues with much apprehension and anxiety about sorting out her care mgt and finances and transferring to [facility]. Irritable at times per team. Medication Compliance: Yes Side effects from medications: Yes (constipation) Attending Groups: Intermittent Review of Systems Acute medical concerns: No Medical Review of Systems: unchanged Review of Systems Reports behavioral changes Psychiatric: Reports anxiety and Reports behavioral changes Mental Status Exam Mental Status Exam Patient Appearance: Appropriate Patient Orientation: Person, Place, Time and Situation Level of Consciousness: Alert Patient Behavior: Appropriate, Talkative, Cooperative and Good Eye Contact Mood Description: Anxious and Apprehensive Affect Description: Constricted and Anxious Patient Cognition Impaired: No Ability to Follow Directions: Good Speech Pattern: Clear and Spontaneous Speech Memory Description: Intact Hallucinations: Auditory Delusions: Paranoid Ideation Perceptual Disturbances: Depersonalization and Derealization Thought Process: Goal Oriented Thought Content: positive for Goal Oriented and positive for Suicidal Ideation (denies) Depressive Symptoms: Increased Anxiety and Low Self Esteem Judgement: Good Diagnostics Vital Signs (24Hr): Vital Signs - 24 hr 10/06/21 19:55 10/07/21 09:34 Temperature 97.6 F 98.4 F Pulse Rate 82 90 Respiratory Rate 16 Blood Pressure 120/84 142/97 H Pulse Oximetry 94 96 BMI result Body Mass Index 32.8 Labs Results: 10/07/21 08:06 Labs: Laboratory Results - last 48 hr 10/02/21 10/07/21 10/07/21 07:24 08:06 08:06 Sodium 138 Potassium 4.8 Chloride 104 Carbon Dioxide 26 Anion Gap 13 BUN 30 H Creatinine 0.97 Estim Creat Clear Calc 75.0 Estimated GFR 60 Random Glucose 125 H Calcium 9.8 Total Bilirubin 0.5 AST 17 ALT 25 Alkaline Phosphatase 83 Total Protein 6.4 L Albumin 4.0 25-OH Vitamin D Total 23 L 25-Hydroxy Vitamin D2 <4 25-Hydroxy Vitamin D3 23 TSH 4.49 H [place] 0.74 Imaging Radiology Impressions: ITS Impressions Abdomen Ultrasound 09/01/21 08:59 IMPRESSION: Slightly echogenic liver. Limited evaluation of the gallbladder as the patient has recently eaten. No gallstone seen. Limited visualization of the pancreas. Hip X-Ray 09/16/21 14:47 IMPRESSION: Moderate to severe left hip arthritis. Medications Medications Current Medications Acetaminophen (Acetaminophen 325 Mg Tablet) 975 mg PO Q6H PRN PRN Reason: Headache/Pain Mild Scale (1-3) Last Admin: 10/05/21 14:19 Dose: 975 mg Documented by: Al Hydroxide/Mg Hydroxide (Magnesium Hydrox/Alum Hydrox 30 Ml Oral.Susp) 30 ml PO Q6H PRN PRN Reason: Heartburn/Nausea Last Admin: 08/22/21 05:54 Dose: 30 ml Documented by: Amlodipine Besylate (Amlodipine Besylate 2.5 Mg Tablet) 2.5 mg PO DAILY [facility]; Protocol Last Admin: 10/07/21 09:28 Dose: 2.5 mg Documented by: Artificial Tears (Artificial Tears 15 Ml Drops) 2 drop EYE-BOTH Q4H PRN PRN Reason: Dry Eyes Last Admin: 10/04/21 16:40 Dose: 2 drop Documented by: Aspirin (Aspirin Enteric Coated 325 Mg Tablet.) 650 mg PO DAILY PRN PRN Reason: headache Last Admin: 09/06/21 12:18 Dose: 650 mg Documented by: Benzocaine (Benzocaine 20 % Oral Gel 9 Gm Tube) 1 appl MUCOUS MEM QID PRN; Protocol PRN Reason: Mouth Sore Pain Last Admin: 08/31/21 03:05 Dose: 1 appl Documented by: Calcium Carbonate (Calcium Carbonate 500 Mg Tablet) 500 mg PO DAILY [facility] Last Admin: 10/07/21 09:29 Dose: 500 mg Documented by: [place] Butter/Zinc Oxide ([place] Butter/Zinc Oxide Supp.Rect) 1 supp DC BEDTIME PRN PRN Reason: hemorrhoid pain Last Admin: 09/13/21 21:15 Dose: 1 supp Documented by: Cyanocobalamin (Cyanocobalamin (Vitamin B-12) 100 Mcg Tablet) 100 mcg PO DAILY [facility] Last Admin: 10/07/21 09:28 Dose: 100 mcg Documented by: Diclofenac Sodium (Diclofenac Sodium Delayed Rel 50 Mg Tablet.) 50 mg PO TID [facility] Last Admin: 10/07/21 15:09 Dose: 50 mg Documented by: Diphenhydramine HCl (Diphenhydramine Hcl 25 Mg Tablet) 50 mg PO Q6H PRN PRN Reason: eps Last Admin: 09/22/21 23:48 Dose: 50 mg Documented by: Gabapentin (Gabapentin 400 Mg Capsule) 800 mg PO TID [facility] Last Admin: 10/07/21 15:09 Dose: 800 mg Documented by: Gabapentin (Gabapentin 100 Mg Capsule) 100 mg PO TID PRN PRN Reason: neuropathic pain Last Admin: 09/26/21 17:14 Dose: 100 mg Documented by: Hydroxyzine HCl (Hydroxyzine Hcl 25 Mg Tablet) 25 mg PO BEDTIME PRN PRN Reason: Anxiety Last Admin: 09/22/21 23:48 Dose: 25 mg Documented by: Hydroxyzine HCl (Hydroxyzine Hcl 25 Mg Tablet) 25 mg PO BEDTIME [facility] Last Admin: 10/06/21 21:49 Dose: 25 mg Documented by: Lidocaine (Lidocaine 4 % Patch Adh..Patch) 1 patch TRANSDERMA DAILY [facility]; Protocol Last Admin: 10/07/21 09:33 Dose: Not Given Documented by: Lidocaine (Lidocaine 4 % Patch Adh..Patch) 1 patch TRANSDERMA DAILY [facility]; Protocol Last Admin: 10/07/21 09:33 Dose: Not Given Documented by: [place] Carbonate ([place] Carbonate 300 Mg Tablet) 300 mg PO BID [facility] Last Admin: 10/07/21 09:29 Dose: 300 mg Documented by: Lorazepam (Lorazepam 1 Mg Tablet) 1 mg PO Q8H PRN PRN Reason: agitation, anxiety Last Admin: 10/06/21 21:58 Dose: 1 mg Documented by: Magnesium Citrate (Magnesium Citrate 300 Ml Solution) 300 ml PO DAILY PRN PRN Reason: Constipation Last Admin: 10/05/21 20:06 Dose: 300 ml Documented by: Magnesium Hydroxide (Milk Of Magnesia 30 Ml Oral.Susp) 30 ml PO DAILY PRN PRN Reason: Constipation Last Admin: 08/31/21 20:05 Dose: 30 ml Documented by: Melatonin (Melatonin 3 Mg Tablet) 9 mg PO BEDTIME [facility] Last Admin: 10/06/21 21:49 Dose: 9 mg Documented by: Multi-Ingred Cream/Lotion/Oil/Oint (Mineral Oil/Petrolatum,White 106 Gm Tube) 1 appl TOPICAL BID [facility]; Protocol Last Admin: 10/07/21 09:33 Dose: Not Given Documented by: Multivitamins/Vitamin C (Multivitamin Tablet) 1 tab PO DAILY [facility] Last Admin: 10/07/21 09:29 Dose: 1 tab Documented by: Nicotine (Nicotine 14 Mg Patch.Td24) 14 mg TRANSDERMA DAILY [facility] Last Admin: 10/07/21 09:32 Dose: Not Given Documented by: Nicotine Polacrilex (Nicotine Polacrilex 2 Mg Gum) 4 mg BUCCAL Q1H PRN PRN Reason: Nicotine Cravings Last Admin: 10/07/21 15:09 Dose: 4 mg Documented by: Psyllium Hydrophilic Mucilloid (Psyllium Seed 3.4 Gm Powd.Pack) 3.4 gm PO DAILY [facility] Last Admin: 10/07/21 09:28 Dose: 3.4 gm Documented by: Quetiapine Fumarate (Quetiapine Fumarate 200 Mg Tablet) 200 mg PO Q6H PRN PRN Reason: anxiety/restlessness Last Admin: 09/21/21 02:38 Dose: 200 mg Documented by: Quetiapine Fumarate (Quetiapine Fumarate 100 Mg Tablet) 100 mg PO DAILY [facility] Last Admin: 10/07/21 09:28 Dose: 100 mg Documented by: Quetiapine Fumarate (Quetiapine Fumarate 300 Mg Tablet) 600 mg PO BEDTIME [facility] Last Admin: 10/06/21 21:49 Dose: 600 mg Documented by: Ropinirole HCl (Ropinirole Hcl 1 Mg Tablet) 2 mg PO 1900 [facility] Last Admin: 10/06/21 19:51 Dose: 2 mg Documented by: Ropinirole HCl (Ropinirole Hcl 0.5 Mg Tablet) 0.5 mg PO 0800 [facility] Last Admin: 10/07/21 09:28 Dose: 0.5 mg Documented by: Senna/Docusate Sodium (Sennosides/Docusate Sodium Tablet) 1 tab PO BID [facility] Last Admin: 10/07/21 09:28 Dose: 1 tab Documented by: Simethicone (Simethicone 80 Mg Tab.Chew) 80 mg PO QIDWMHS PRN PRN Reason: indigestion Sodium Chloride (Sodium Chloride 0.65 % Nasal 44 Ml Sprbtl) 1 spray NOSTRIL-B Q1H PRN PRN Reason: congestion Last Admin: 09/29/21 13:37 Dose: 1 spray Documented by: Trolamine Salicylate/Aloe Vera (Trolamine Salicylate 10%/Aloe Cream 35.4 Gm) 1 appl TOPICAL TID PRN PRN Reason: sciatica Last Admin: 09/03/21 05:27 Dose: 1 appl Documented by: Ziprasidone (Ziprasidone 20 Mg Capsule) 20 mg PO BID PRN PRN Reason: psychosis Allergies Allergies Allergy/AdvReac Type Severity Reaction Status Date / Time aripiprazole [From Abilify] Allergy Unknown Involuntary Verified 08/19/21 07:20 Spasms chlorpromazine Allergy Unknown Nausea and Verified 08/19/21 07:20 [From Thorazine] Vomiting haloperidol [From Haldol] Allergy Unknown Involuntary Verified 08/19/21 07:20 Spasms olanzapine [From Zyprexa] Allergy Unknown Involuntary Verified 08/19/21 07:20 Spasms paliperidone [From Invega] Allergy Unknown Hallucinati Verified 08/19/21 07:20 ons risperidone Allergy Unknown Involuntary Verified 08/19/21 07:20 Spasms Assessment & Plan Assessment & Plan (1) Schizoaffective disorder, bipolar type: Status: Acute Code(s): F25.0 - Schizoaffective disorder, bipolar type Assessment and Plan: Continue current plan (2) Lumbar radiculopathy: Status: Acute Code(s): M54.16 - Radiculopathy, lumbar region (3) Hip pain, left: Status: Acute Code(s): M25.552 - Pain in left hip Plan 09/20/21- Improving. Transition planning with [facility]. Pt is looking at discharge to a rest home and transitioning to [facility] services in [facility]. No medication changes today. 09/21: stable on current medications. on seroquel and lithium, c/o of hip pain on ibuprofen with partial response. no behavioral concerns. no overt delusional content nor psychosis noted. 09/22/21: Continue plan of care. 09/23/21: Ortho consult-Left hip pain Pt has requested a flu shot. Discharge planning-pt considering a rest home as a temporary placement. 09/24 continue per primary treatment team. 09/25: no med changes, pt is sig less manic 09/27/21: Continue plan of care. Transitioning from [facility] of [facility] to local office. 09/28/21: Continue plan of care. Support in transition and discharge planning. Refusal of [place] discussed with Blanca. Discussed other options-she will consider. 10/01/21: Continue plan of care. Fe, TIBC, ESR, CRP, RF, Vit D, CCP 10/03/21: Discontinue clonidine, mirtazapine Change diclofenic to 50 mg tid 10/06/21 Continue current regime 10/07/21 Colace 100 mg bid, high fiber diet I spent 15 minutes with the patient and/or on the patient floor today, greater than?50% of which was spent counseling/coordinating care. Informed Consent: further education needed Reason for contiued inpatient stay Substantial Risk for: inability to function and rapid decompensation
[2021-10-07 18:00] VITALS: BP 126/79; PULSE 88; RESP 16; TEMP 36.6; O2SAT 96
[2021-10-07] MEDS: QUEtiapine Fumarate 300 MG TABLET 600 MG PO (19:44)
[2021-10-07] MEDS: Melatonin 3 MG TABLET 9 MG PO (19:45)
[2021-10-07] MEDS: Docusate Sodium 100 MG CAPSULE PO (19:46)
[2021-10-07] MEDS: LORazepam 1 MG TABLET PO (19:49)
[2021-10-07] MEDS: Magnesium Citrate 300 ML SOLUTION PO (19:49)
[2021-10-07] MEDS: rOPINIRole HCL 1 MG TABLET 2 MG PO (19:53)
[2021-10-08] MEDS: LORazepam 1 MG TABLET PO ×2 (02:14→21:27)
[2021-10-08 06:00] VITALS: BP 136/86; PULSE 88; RESP 14; TEMP 36.3; O2SAT 96
[2021-10-08] MEDS: Nicotine 14 MG PATCH.TD24 TRANSDERMA (08:41)
[2021-10-08] MEDS: rOPINIRole HCL 0.5 MG TABLET PO (08:42)
[2021-10-08] MEDS: Docusate Sodium 100 MG CAPSULE PO ×2 (08:42→21:22)
[2021-10-08] MEDS: Gabapentin 400 MG CAPSULE 800 MG PO ×3 (08:42→21:21)
[2021-10-08] MEDS: Sennosides/Docusate Sodium TABLET 1 TAB PO ×2 (08:42→21:22)
[2021-10-08] MEDS: Lithium Carbonate 300 MG TABLET PO ×2 (08:43→21:22)
[2021-10-08] MEDS: Diclofenac Sodium Delayed Rel 50 MG TABLET.DR PO ×3 (08:43→19:51)
[2021-10-08] MEDS: Multivitamin TABLET 1 TAB PO (08:44)
[2021-10-08] MEDS: Cyanocobalamin (Vitamin B-12) 100 MCG TABLET PO (08:44)
[2021-10-08] MEDS: QUEtiapine Fumarate 100 MG TABLET PO (08:44)
[2021-10-08] MEDS: amLODIPine Besylate 2.5 MG TABLET PO (08:45)
[2021-10-08] MEDS: Nicotine Polacrilex 2 MG GUM 4 MG BUCCAL ×3 (08:47→20:00)
--- NOTE | 2021-10-08 15:23 | HO.PSYCHPN ---
Subjective Subjective Date of Service: 10/08/21 Reason For Visit: Bipolar, Schizoaffective Subjective Notes: Conditional Voluntary Healthcare Proxy: No Guardianship: No Interim History: Patient significantly calmer less labile worried about being rejected for rest home setting because not having a healthcare proxy. Otherwise much less labile her less agitated more reality oriented able to have a linear conversation Medication Compliance: Yes Side effects from medications: No Review of Systems Acute medical concerns: Yes pain Mental Status Exam Mental Status Exam Patient Appearance: Appropriate Patient Orientation: Person, Place, Time and Situation Level of Consciousness: Alert Patient Behavior: Appropriate, Talkative, Cooperative and Good Eye Contact Mood Description: Anxious and Apprehensive Affect Description: Constricted and Anxious Patient Cognition Impaired: No Ability to Follow Directions: Good Speech Pattern: Clear and Spontaneous Speech Memory Description: Intact Hallucinations: Auditory Delusions: Paranoid Ideation Perceptual Disturbances: Depersonalization and Derealization Thought Process: Goal Oriented Thought Content: positive for Goal Oriented and positive for Suicidal Ideation (denies) Depressive Symptoms: Increased Anxiety and Low Self Esteem Judgement: Good Diagnostics Vital Signs (24Hr): Vital Signs - 24 hr 10/07/21 18:00 10/08/21 06:00 Temperature 97.9 F 97.4 F Pulse Rate 88 88 Respiratory Rate 16 14 Blood Pressure 126/79 136/86 Pulse Oximetry 96 96 BMI result Body Mass Index 32.8 Labs Results: 10/07/21 08:06 Labs: Laboratory Results - last 48 hr 10/02/21 10/07/21 10/07/21 07:24 08:06 08:06 Sodium 138 Potassium 4.8 Chloride 104 Carbon Dioxide 26 Anion Gap 13 BUN 30 H Creatinine 0.97 Estim Creat Clear Calc 75.0 Estimated GFR 60 Random Glucose 125 H Calcium 9.8 Total Bilirubin 0.5 AST 17 ALT 25 Alkaline Phosphatase 83 Total Protein 6.4 L Albumin 4.0 25-OH Vitamin D Total 23 L 25-Hydroxy Vitamin D2 <4 25-Hydroxy Vitamin D3 23 TSH 4.49 H [place] 0.74 Imaging Radiology Impressions: ITS Impressions Abdomen Ultrasound 09/01/21 08:59 IMPRESSION: Slightly echogenic liver. Limited evaluation of the gallbladder as the patient has recently eaten. No gallstone seen. Limited visualization of the pancreas. Hip X-Ray 09/16/21 14:47 IMPRESSION: Moderate to severe left hip arthritis. Medications Medications Current Medications Acetaminophen (Acetaminophen 325 Mg Tablet) 975 mg PO Q6H PRN PRN Reason: Headache/Pain Mild Scale (1-3) Last Admin: 10/05/21 14:19 Dose: 975 mg Documented by: Al Hydroxide/Mg Hydroxide (Magnesium Hydrox/Alum Hydrox 30 Ml Oral.Susp) 30 ml PO Q6H PRN PRN Reason: Heartburn/Nausea Last Admin: 08/22/21 05:54 Dose: 30 ml Documented by: Amlodipine Besylate (Amlodipine Besylate 2.5 Mg Tablet) 2.5 mg PO DAILY [facility]; Protocol Last Admin: 10/08/21 08:45 Dose: 2.5 mg Documented by: Artificial Tears (Artificial Tears 15 Ml Drops) 2 drop EYE-BOTH Q4H PRN PRN Reason: Dry Eyes Last Admin: 10/04/21 16:40 Dose: 2 drop Documented by: Aspirin (Aspirin Enteric Coated 325 Mg Tablet.) 650 mg PO DAILY PRN PRN Reason: headache Last Admin: 09/06/21 12:18 Dose: 650 mg Documented by: Benzocaine (Benzocaine 20 % Oral Gel 9 Gm Tube) 1 appl MUCOUS MEM QID PRN; Protocol PRN Reason: Mouth Sore Pain Last Admin: 08/31/21 03:05 Dose: 1 appl Documented by: Calcium Carbonate (Calcium Carbonate 500 Mg Tablet) 500 mg PO DAILY [facility] Last Admin: 10/08/21 08:51 Dose: 500 mg Documented by: [place] Butter/Zinc Oxide ([place] Butter/Zinc Oxide Supp.Rect) 1 supp [place] BEDTIME PRN PRN Reason: hemorrhoid pain Last Admin: 09/13/21 21:15 Dose: 1 supp Documented by: Cyanocobalamin (Cyanocobalamin (Vitamin B-12) 100 Mcg Tablet) 100 mcg PO DAILY [facility] Last Admin: 10/08/21 08:44 Dose: 100 mcg Documented by: Diclofenac Sodium (Diclofenac Sodium Delayed Rel 50 Mg Tablet.) 50 mg PO TID [facility] Last Admin: 10/08/21 14:06 Dose: 50 mg Documented by: Diphenhydramine HCl (Diphenhydramine Hcl 25 Mg Tablet) 50 mg PO Q6H PRN PRN Reason: eps Last Admin: 09/22/21 23:48 Dose: 50 mg Documented by: Docusate Sodium (Docusate Sodium 100 Mg Capsule) 100 mg PO BID [facility] Last Admin: 10/08/21 08:42 Dose: 100 mg Documented by: Gabapentin (Gabapentin 400 Mg Capsule) 800 mg PO TID [facility] Last Admin: 10/08/21 14:06 Dose: 800 mg Documented by: Gabapentin (Gabapentin 100 Mg Capsule) 100 mg PO TID PRN PRN Reason: neuropathic pain Last Admin: 09/26/21 17:14 Dose: 100 mg Documented by: Hydroxyzine HCl (Hydroxyzine Hcl 25 Mg Tablet) 25 mg PO BEDTIME PRN PRN Reason: Anxiety Last Admin: 09/22/21 23:48 Dose: 25 mg Documented by: Hydroxyzine HCl (Hydroxyzine Hcl 25 Mg Tablet) 25 mg PO BEDTIME [facility] Last Admin: 10/07/21 20:25 Dose: Not Given Documented by: Lidocaine (Lidocaine 4 % Patch Adh..Patch) 1 patch TRANSDERMA DAILY [facility]; Protocol Last Admin: 10/08/21 08:52 Dose: Not Given Documented by: Lidocaine (Lidocaine 4 % Patch Adh..Patch) 1 patch TRANSDERMA DAILY [facility]; Protocol Last Admin: 10/08/21 08:52 Dose: Not Given Documented by: [place] Carbonate ([place] Carbonate 300 Mg Tablet) 300 mg PO BID [facility] Last Admin: 10/08/21 08:43 Dose: 300 mg Documented by: Lorazepam (Lorazepam 1 Mg Tablet) 1 mg PO Q8H PRN PRN Reason: agitation, anxiety Last Admin: 10/08/21 02:14 Dose: 1 mg Documented by: Magnesium Citrate (Magnesium Citrate 300 Ml Solution) 300 ml PO DAILY PRN PRN Reason: Constipation Last Admin: 10/07/21 19:49 Dose: 300 ml Documented by: Magnesium Hydroxide (Milk Of Magnesia 30 Ml Oral.Susp) 30 ml PO DAILY PRN PRN Reason: Constipation Last Admin: 08/31/21 20:05 Dose: 30 ml Documented by: Melatonin (Melatonin 3 Mg Tablet) 9 mg PO BEDTIME [facility] Last Admin: 10/07/21 19:45 Dose: 9 mg Documented by: Multi-Ingred Cream/Lotion/Oil/Oint (Mineral Oil/Petrolatum,White 106 Gm Tube) 1 appl TOPICAL BID [facility]; Protocol Last Admin: 10/08/21 08:52 Dose: Not Given Documented by: Multivitamins/Vitamin C (Multivitamin Tablet) 1 tab PO DAILY [facility] Last Admin: 10/08/21 08:44 Dose: 1 tab Documented by: Nicotine (Nicotine 14 Mg Patch.Td24) 14 mg TRANSDERMA DAILY [facility] Last Admin: 10/08/21 08:41 Dose: 14 mg Documented by: Nicotine Polacrilex (Nicotine Polacrilex 2 Mg Gum) 4 mg BUCCAL Q1H PRN PRN Reason: Nicotine Cravings Last Admin: 10/08/21 14:07 Dose: 4 mg Documented by: Psyllium Hydrophilic Mucilloid (Psyllium Seed 3.4 Gm Powd.Pack) 3.4 gm PO DAILY [facility] Last Admin: 10/08/21 08:41 Dose: 3.4 gm Documented by: Quetiapine Fumarate (Quetiapine Fumarate 200 Mg Tablet) 200 mg PO Q6H PRN PRN Reason: anxiety/restlessness Last Admin: 09/21/21 02:38 Dose: 200 mg Documented by: Quetiapine Fumarate (Quetiapine Fumarate 100 Mg Tablet) 100 mg PO DAILY [facility] Last Admin: 10/08/21 08:44 Dose: 100 mg Documented by: Quetiapine Fumarate (Quetiapine Fumarate 300 Mg Tablet) 600 mg PO BEDTIME [facility] Last Admin: 10/07/21 19:44 Dose: 600 mg Documented by: Ropinirole HCl (Ropinirole Hcl 1 Mg Tablet) 2 mg PO 1900 [facility] Last Admin: 10/07/21 19:53 Dose: 2 mg Documented by: Ropinirole HCl (Ropinirole Hcl 0.5 Mg Tablet) 0.5 mg PO 0800 [facility] Last Admin: 10/08/21 08:42 Dose: 0.5 mg Documented by: Senna/Docusate Sodium (Sennosides/Docusate Sodium Tablet) 1 tab PO BID [facility] Last Admin: 10/08/21 08:42 Dose: 1 tab Documented by: Simethicone (Simethicone 80 Mg Tab.Chew) 80 mg PO QIDWMHS PRN PRN Reason: indigestion Sodium Chloride (Sodium Chloride 0.65 % Nasal 44 Ml Sprbtl) 1 spray NOSTRIL-B Q1H PRN PRN Reason: congestion Last Admin: 09/29/21 13:37 Dose: 1 spray Documented by: Trolamine Salicylate/Aloe Vera (Trolamine Salicylate 10%/Aloe Cream 35.4 Gm) 1 appl TOPICAL TID PRN PRN Reason: sciatica Last Admin: 09/03/21 05:27 Dose: 1 appl Documented by: Ziprasidone (Ziprasidone 20 Mg Capsule) 20 mg PO BID PRN PRN Reason: psychosis Allergies Allergies Allergy/AdvReac Type Severity Reaction Status Date / Time aripiprazole [From Abilify] Allergy Unknown Involuntary Verified 08/19/21 07:20 Spasms chlorpromazine Allergy Unknown Nausea and Verified 08/19/21 07:20 [From Thorazine] Vomiting haloperidol [From Haldol] Allergy Unknown Involuntary Verified 08/19/21 07:20 Spasms olanzapine [From Zyprexa] Allergy Unknown Involuntary Verified 08/19/21 07:20 Spasms paliperidone [From Invega] Allergy Unknown Hallucinati Verified 08/19/21 07:20 ons risperidone Allergy Unknown Involuntary Verified 08/19/21 07:20 Spasms Assessment & Plan Assessment & Plan (1) Schizoaffective disorder, bipolar type: Status: Acute Code(s): F25.0 - Schizoaffective disorder, bipolar type Assessment and Plan: Continue current plan (2) Lumbar radiculopathy: Status: Acute Code(s): M54.16 - Radiculopathy, lumbar region (3) Hip pain, left: Status: Acute Code(s): M25.552 - Pain in left hip Plan 09/20/21- Improving. Transition planning with [facility]. Pt is looking at discharge to a rest home and transitioning to [facility] services in [facility]. No medication changes today. 09/21: stable on current medications. on seroquel and lithium, c/o of hip pain on ibuprofen with partial response. no behavioral concerns. no overt delusional content nor psychosis noted. 09/22/21: Continue plan of care. 09/23/21: Ortho consult-Left hip pain Pt has requested a flu shot. Discharge planning-pt considering a rest home as a temporary placement. 09/24 continue per primary treatment team. 09/25: no med changes, pt is sig less manic 09/27/21: Continue plan of care. Transitioning from [facility] of [facility] to local office. 09/28/21: Continue plan of care. Support in transition and discharge planning. Refusal of [place] discussed with Blanca. Discussed other options-she will consider. 10/01/21: Continue plan of care. Fe, TIBC, ESR, CRP, RF, Vit D, CCP 10/03/21: Discontinue clonidine, mirtazapine Change diclofenic to 50 mg tid 10/06/21 Continue current regime 10/07/21 Colace 100 mg bid, high fiber diet 10/08/2021 continue current plan discharge planning I spent minutes with the patient and/or on the patient floor today, greater than?50% of which was spent counseling/coordinating care. Reason for contiued inpatient stay Substantial Risk for: harm to self and rapid decompensation
[2021-10-08 16:15] VITALS: BP 104/58; PULSE 91; TEMP 37.1
[2021-10-08] MEDS: rOPINIRole HCL 1 MG TABLET 2 MG PO (19:52)
[2021-10-08] MEDS: Acetaminophen 325 MG TABLET 975 MG PO (19:57)
[2021-10-08] MEDS: Melatonin 3 MG TABLET 9 MG PO (21:21)
[2021-10-08] MEDS: QUEtiapine Fumarate 300 MG TABLET 600 MG PO (21:22)
[2021-10-09 06:00] VITALS: BP 116/76; PULSE 88; RESP 16; TEMP 36.9; O2SAT 94
[2021-10-09] MEDS: Gabapentin 400 MG CAPSULE 800 MG PO ×3 (09:20→22:18)
[2021-10-09] MEDS: QUEtiapine Fumarate 100 MG TABLET PO (09:20)
[2021-10-09] MEDS: Lithium Carbonate 300 MG TABLET PO ×2 (09:20→22:17)
[2021-10-09] MEDS: Docusate Sodium 100 MG CAPSULE PO ×2 (09:20→22:18)
[2021-10-09] MEDS: amLODIPine Besylate 2.5 MG TABLET PO (09:20)
[2021-10-09] MEDS: Sennosides/Docusate Sodium TABLET 1 TAB PO ×2 (09:20→22:18)
[2021-10-09] MEDS: rOPINIRole HCL 0.5 MG TABLET PO (09:20)
[2021-10-09] MEDS: Cyanocobalamin (Vitamin B-12) 100 MCG TABLET PO (09:20)
[2021-10-09] MEDS: Multivitamin TABLET 1 TAB PO (09:20)
[2021-10-09] MEDS: Nicotine 14 MG PATCH.TD24 TRANSDERMA (09:21)
[2021-10-09] MEDS: Diclofenac Sodium Delayed Rel 50 MG TABLET.DR PO ×3 (09:21→21:23)
[2021-10-09] MEDS: Nicotine Polacrilex 2 MG GUM 4 MG BUCCAL ×2 (09:24→21:25)
[2021-10-09] MEDS: Mineral Oil/Petrolatum,White 106 GM Tube 1 APPL TOPICAL (09:25)
[2021-10-09] MEDS: Sodium Chloride 0.65 % Nasal 44 ML SPRBTL 1 SPRAY NOSTRIL-B (09:26)
[2021-10-09] MEDS: Artificial Tears 15 ML DROPS 2 DROP EYE-BOTH (09:27)
--- NOTE | 2021-10-09 11:50 | HO.PSYCHPN ---
Subjective Subjective Date of Service: 10/09/21 Reason For Visit: Bipolar, Schizoaffective Subjective Notes: Conditional Voluntary Medical Problems Affecting Mental Status: No Interim History: Met with patient in discussed with Nursing. Aware of disposition challenges. Hopelessness and isolation. Aware of treatment plan around Lamictal and Seroquel. Patient declined to engage in interview today. Stated she was okay and had no complaints. Did answer superficial questions around medications and sleep and reported no Concerns around either. Also reported not wanting to talk about discharge planning. Medication Compliance: Yes Side effects from medications: No Attending Groups: No Review of Systems Acute medical concerns: No Review of Systems: Unremarkable Mental Status Exam Mental Status Exam Narrative: in room. Limited engagement. Casually dressed. Slightly disheveled. Restricted affect appears depressed. No evidence of SI or HI. No overt psychosis noted. Insight and judgment okay Diagnostics Vital Signs (24Hr): Vital Signs - 24 hr 10/09/21 06:00 Temperature 98.4 F Pulse Rate 88 Respiratory Rate 16 Blood Pressure 116/76 Pulse Oximetry 94 BMI result Body Mass Index 32.8 Labs Results: 10/07/21 08:06 Imaging Radiology Impressions: ITS Impressions Abdomen Ultrasound 09/01/21 08:59 IMPRESSION: Slightly echogenic liver. Limited evaluation of the gallbladder as the patient has recently eaten. No gallstone seen. Limited visualization of the pancreas. Hip X-Ray 09/16/21 14:47 IMPRESSION: Moderate to severe left hip arthritis. Medications Medications Current Medications Acetaminophen (Acetaminophen 325 Mg Tablet) 975 mg PO Q6H PRN PRN Reason: Headache/Pain Mild Scale (1-3) Last Admin: 10/08/21 19:57 Dose: 975 mg Documented by: Al Hydroxide/Mg Hydroxide (Magnesium Hydrox/Alum Hydrox 30 Ml Oral.Susp) 30 ml PO Q6H PRN PRN Reason: Heartburn/Nausea Last Admin: 08/22/21 05:54 Dose: 30 ml Documented by: Amlodipine Besylate (Amlodipine Besylate 2.5 Mg Tablet) 2.5 mg PO DAILY [facility]; Protocol Last Admin: 10/09/21 09:20 Dose: 2.5 mg Documented by: Artificial Tears (Artificial Tears 15 Ml Drops) 2 drop EYE-BOTH Q4H PRN PRN Reason: Dry Eyes Last Admin: 10/09/21 09:27 Dose: 2 drop Documented by: Aspirin (Aspirin Enteric Coated 325 Mg Tablet.) 650 mg PO DAILY PRN PRN Reason: headache Last Admin: 09/06/21 12:18 Dose: 650 mg Documented by: Benzocaine (Benzocaine 20 % Oral Gel 9 Gm Tube) 1 appl MUCOUS MEM QID PRN; Protocol PRN Reason: Mouth Sore Pain Last Admin: 08/31/21 03:05 Dose: 1 appl Documented by: Calcium Carbonate (Calcium Carbonate 500 Mg Tablet) 500 mg PO DAILY [facility] Last Admin: 10/09/21 09:20 Dose: 500 mg Documented by: [place] Butter/Zinc Oxide ([place] Butter/Zinc Oxide Supp.Rect) 1 supp [place] BEDTIME PRN PRN Reason: hemorrhoid pain Last Admin: 09/13/21 21:15 Dose: 1 supp Documented by: Cyanocobalamin (Cyanocobalamin (Vitamin B-12) 100 Mcg Tablet) 100 mcg PO DAILY [facility] Last Admin: 10/09/21 09:20 Dose: 100 mcg Documented by: Diclofenac Sodium (Diclofenac Sodium Delayed Rel 50 Mg Tablet.) 50 mg PO TID [facility] Last Admin: 10/09/21 21:23 Dose: 50 mg Documented by: Diphenhydramine HCl (Diphenhydramine Hcl 25 Mg Tablet) 50 mg PO Q6H PRN PRN Reason: eps Last Admin: 09/22/21 23:48 Dose: 50 mg Documented by: Docusate Sodium (Docusate Sodium 100 Mg Capsule) 100 mg PO BID [facility] Last Admin: 10/09/21 09:20 Dose: 100 mg Documented by: Gabapentin (Gabapentin 400 Mg Capsule) 800 mg PO TID [facility] Last Admin: 10/09/21 14:17 Dose: 800 mg Documented by: Gabapentin (Gabapentin 100 Mg Capsule) 100 mg PO TID PRN PRN Reason: neuropathic pain Last Admin: 09/26/21 17:14 Dose: 100 mg Documented by: Hydroxyzine HCl (Hydroxyzine Hcl 25 Mg Tablet) 25 mg PO BEDTIME PRN PRN Reason: Anxiety Last Admin: 09/22/21 23:48 Dose: 25 mg Documented by: Hydroxyzine HCl (Hydroxyzine Hcl 25 Mg Tablet) 25 mg PO BEDTIME [facility] Last Admin: 10/08/21 22:02 Dose: Not Given Documented by: Lidocaine (Lidocaine 4 % Patch Adh..Patch) 1 patch TRANSDERMA DAILY [facility]; Protocol Last Admin: 10/09/21 09:25 Dose: Not Given Documented by: Lidocaine (Lidocaine 4 % Patch Adh..Patch) 1 patch TRANSDERMA DAILY [facility]; Protocol Last Admin: 10/09/21 09:24 Dose: Not Given Documented by: [place] Carbonate ([place] Carbonate 300 Mg Tablet) 300 mg PO BID [facility] Last Admin: 10/09/21 09:20 Dose: 300 mg Documented by: Lorazepam (Lorazepam 1 Mg Tablet) 1 mg PO Q8H PRN PRN Reason: agitation, anxiety Last Admin: 10/08/21 21:27 Dose: 1 mg Documented by: Magnesium Citrate (Magnesium Citrate 300 Ml Solution) 300 ml PO DAILY PRN PRN Reason: Constipation Last Admin: 10/07/21 19:49 Dose: 300 ml Documented by: Magnesium Hydroxide (Milk Of Magnesia 30 Ml Oral.Susp) 30 ml PO DAILY PRN PRN Reason: Constipation Last Admin: 08/31/21 20:05 Dose: 30 ml Documented by: Melatonin (Melatonin 3 Mg Tablet) 9 mg PO BEDTIME [facility] Last Admin: 10/08/21 21:21 Dose: 9 mg Documented by: Multi-Ingred Cream/Lotion/Oil/Oint (Mineral Oil/Petrolatum,White 106 Gm Tube) 1 appl TOPICAL BID [facility]; Protocol Last Admin: 10/09/21 09:25 Dose: 1 appl Documented by: Multivitamins/Vitamin C (Multivitamin Tablet) 1 tab PO DAILY [facility] Last Admin: 10/09/21 09:20 Dose: 1 tab Documented by: Nicotine (Nicotine 14 Mg Patch.Td24) 14 mg TRANSDERMA DAILY [facility] Last Admin: 10/09/21 09:21 Dose: 14 mg Documented by: Nicotine Polacrilex (Nicotine Polacrilex 2 Mg Gum) 4 mg BUCCAL Q1H PRN PRN Reason: Nicotine Cravings Last Admin: 10/09/21 21:25 Dose: 4 mg Documented by: Psyllium Hydrophilic Mucilloid (Psyllium Seed 3.4 Gm Powd.Pack) 3.4 gm PO DAILY [facility] Last Admin: 10/09/21 09:21 Dose: 3.4 gm Documented by: Quetiapine Fumarate (Quetiapine Fumarate 200 Mg Tablet) 200 mg PO Q6H PRN PRN Reason: anxiety/restlessness Last Admin: 09/21/21 02:38 Dose: 200 mg Documented by: Quetiapine Fumarate (Quetiapine Fumarate 100 Mg Tablet) 100 mg PO DAILY [facility] Last Admin: 10/09/21 09:20 Dose: 100 mg Documented by: Quetiapine Fumarate (Quetiapine Fumarate 300 Mg Tablet) 600 mg PO BEDTIME [facility] Last Admin: 10/08/21 21:22 Dose: 600 mg Documented by: Ropinirole HCl (Ropinirole Hcl 0.5 Mg Tablet) 0.5 mg PO 0800 [facility] Last Admin: 10/09/21 09:20 Dose: 0.5 mg Documented by: Ropinirole HCl (Ropinirole Hcl 1 Mg Tablet) 2 mg PO DAILY@1900 [facility] Last Admin: 10/09/21 21:21 Dose: 2 mg Documented by: Senna/Docusate Sodium (Sennosides/Docusate Sodium Tablet) 1 tab PO BID [facility] Last Admin: 10/09/21 09:20 Dose: 1 tab Documented by: Simethicone (Simethicone 80 Mg Tab.Chew) 80 mg PO QIDWMHS PRN PRN Reason: indigestion Sodium Chloride (Sodium Chloride 0.65 % Nasal 44 Ml Sprbtl) 1 spray NOSTRIL-B Q1H PRN PRN Reason: congestion Last Admin: 10/09/21 09:26 Dose: 1 spray Documented by: Trolamine Salicylate/Aloe Vera (Trolamine Salicylate 10%/Aloe Cream 35.4 Gm) 1 appl TOPICAL TID PRN PRN Reason: sciatica Last Admin: 09/03/21 05:27 Dose: 1 appl Documented by: Ziprasidone (Ziprasidone 20 Mg Capsule) 20 mg PO BID PRN PRN Reason: psychosis Allergies Allergies Allergy/AdvReac Type Severity Reaction Status Date / Time aripiprazole [From Abilify] Allergy Unknown Involuntary Verified 08/19/21 07:20 Spasms chlorpromazine Allergy Unknown Nausea and Verified 08/19/21 07:20 [From Thorazine] Vomiting haloperidol [From Haldol] Allergy Unknown Involuntary Verified 08/19/21 07:20 Spasms olanzapine [From Zyprexa] Allergy Unknown Involuntary Verified 08/19/21 07:20 Spasms paliperidone [From Invega] Allergy Unknown Hallucinati Verified 08/19/21 07:20 ons risperidone Allergy Unknown Involuntary Verified 08/19/21 07:20 Spasms Assessment & Plan Assessment & Plan (1) Schizoaffective disorder, bipolar type: Status: Acute Code(s): F25.0 - Schizoaffective disorder, bipolar type Assessment and Plan: Continue current plan (2) Lumbar radiculopathy: Status: Acute Code(s): M54.16 - Radiculopathy, lumbar region (3) Hip pain, left: Status: Acute Code(s): M25.552 - Pain in left hip Plan 09/20/21- Improving. Transition planning with [facility]. Pt is looking at discharge to a rest home and transitioning to [facility] services in [facility]. No medication changes today. 09/21: stable on current medications. on seroquel and lithium, c/o of hip pain on ibuprofen with partial response. no behavioral concerns. no overt delusional content nor psychosis noted. 09/22/21: Continue plan of care. 09/23/21: Ortho consult-Left hip pain Pt has requested a flu shot. Discharge planning-pt considering a rest home as a temporary placement. 09/24 continue per primary treatment team. 09/25: no med changes, pt is sig less manic 09/27/21: Continue plan of care. Transitioning from [facility] of [facility] to local office. 09/28/21: Continue plan of care. Support in transition and discharge planning. Refusal of [place] discussed with Blanca. Discussed other options-she will consider. 10/01/21: Continue plan of care. Fe, TIBC, ESR, CRP, RF, Vit D, CCP 10/03/21: Discontinue clonidine, mirtazapine Change diclofenic to 50 mg tid 10/06/21 Continue current regime 10/07/21 Colace 100 mg bid, high fiber diet 10/09/2021 continue current plan discharge planning I spent minutes with the patient and/or on the patient floor today, greater than?50% of which was spent counseling/coordinating care. Reason for contiued inpatient stay Substantial Risk for: inability to function and rapid decompensation
[2021-10-09 17:20] VITALS: BP 127/82; PULSE 89; TEMP 36.8
[2021-10-09] MEDS: rOPINIRole HCL 1 MG TABLET 2 MG PO (21:21)
[2021-10-09] MEDS: Melatonin 3 MG TABLET 9 MG PO (22:17)
[2021-10-09] MEDS: QUEtiapine Fumarate 300 MG TABLET 600 MG PO (22:18)
[2021-10-09] MEDS: hydrOXYzine HCL 25 MG TABLET PO (22:18)
[2021-10-10] MEDS: LORazepam 1 MG TABLET PO ×2 (03:22→21:16)
[2021-10-10 04:55] VITALS: BP 118/59; PULSE 118; RESP 18; TEMP 36.8; O2SAT 96
[2021-10-10] MEDS: Gabapentin 400 MG CAPSULE 800 MG PO ×3 (09:04→21:16)
[2021-10-10] MEDS: Diclofenac Sodium Delayed Rel 50 MG TABLET.DR PO ×3 (09:05→19:23)
[2021-10-10] MEDS: Docusate Sodium 100 MG CAPSULE PO (09:05)
[2021-10-10] MEDS: amLODIPine Besylate 2.5 MG TABLET PO (09:06)
[2021-10-10] MEDS: Sennosides/Docusate Sodium TABLET 1 TAB PO ×2 (09:06→21:16)
[2021-10-10] MEDS: Lithium Carbonate 300 MG TABLET PO ×2 (09:06→21:18)
[2021-10-10] MEDS: Cyanocobalamin (Vitamin B-12) 100 MCG TABLET PO (09:07)
[2021-10-10] MEDS: rOPINIRole HCL 0.5 MG TABLET PO (09:07)
[2021-10-10] MEDS: Multivitamin TABLET 1 TAB PO (09:07)
[2021-10-10] MEDS: QUEtiapine Fumarate 100 MG TABLET PO (09:07)
[2021-10-10] MEDS: Nicotine 14 MG PATCH.TD24 TRANSDERMA (09:08)
--- NOTE | 2021-10-10 12:53 | P.PNPSI_ITS ---
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 Aware of treatment plan around Lamictal and Seroquel. Did endorse frustration around disposition planning. Reported some frustration about being in the hospital and limited group attendance as she has attended most groups and on many art projects. Reports that she does continue to enjoy reading. Sleep is okay and Ativan has been helpful for same. Medication Compliance: Yes Side effects from medications: No Attending Groups: No Review of Systems Acute medical concerns: No Review of Systems Review of Systems Unremarkable Mental Status Exam Mental Status Exam Narrative: Seen in room. More engaged today. Casually dressed. Slightly disheveled. Restricted affect appears depressed. No evidence of SI or HI. No overt psychosis noted. Insight and judgment okay Diagnostics Vital Signs (24Hr): Vital Signs - 24 hr 10/09/21 17:20 10/10/21 04:55 Temperature 98.2 F 98.2 F Pulse Rate 89 118 H Respiratory Rate 18 Blood Pressure 127/82 118/59 L Pulse Oximetry 96 BMI result Body Mass Index 32.8 Labs Results: 10/07/21 08:06 Imaging Radiology Impressions: ITS Impressions Abdomen Ultrasound 09/01/21 08:59 IMPRESSION: Slightly echogenic liver. Limited evaluation of the gallbladder as the patient has recently eaten. No gallstone seen. Limited visualization of the pancreas. Hip X-Ray 09/16/21 14:47 IMPRESSION: Moderate to severe left hip arthritis. Medications Medications Current Medications Acetaminophen (Acetaminophen 325 Mg Tablet) 975 mg PO Q6H PRN PRN Reason: Headache/Pain Mild Scale (1-3) Last Admin: 10/08/21 19:57 Dose: 975 mg Documented by: Al Hydroxide/Mg Hydroxide (Magnesium Hydrox/Alum Hydrox 30 Ml Oral.Susp) 30 ml PO Q6H PRN PRN Reason: Heartburn/Nausea Last Admin: 08/22/21 05:54 Dose: 30 ml Documented by: Amlodipine Besylate (Amlodipine Besylate 2.5 Mg Tablet) 2.5 mg PO DAILY YAYA; Protocol Last Admin: 10/10/21 09:06 Dose: 2.5 mg Documented by: Artificial Tears (Artificial Tears 15 Ml Drops) 2 drop EYE-BOTH Q4H PRN PRN Reason: Dry Eyes Last Admin: 10/09/21 09:27 Dose: 2 drop Documented by: Aspirin (Aspirin Enteric Coated 325 Mg Tablet.) 650 mg PO DAILY PRN PRN Reason: headache Last Admin: 09/06/21 12:18 Dose: 650 mg Documented by: Benzocaine (Benzocaine 20 % Oral Gel 9 Gm Tube) 1 appl MUCOUS MEM QID PRN; Protocol PRN Reason: Mouth Sore Pain Last Admin: 08/31/21 03:05 Dose: 1 appl Documented by: Calcium Carbonate (Calcium Carbonate 500 Mg Tablet) 500 mg PO DAILY [facility] Last Admin: 10/10/21 09:07 Dose: 500 mg Documented by: [place] Butter/Zinc Oxide ([place] Butter/Zinc Oxide Supp.Rect) 1 supp [place] BEDTIME PRN PRN Reason: hemorrhoid pain Last Admin: 09/13/21 21:15 Dose: 1 supp Documented by: Cyanocobalamin (Cyanocobalamin (Vitamin B-12) 100 Mcg Tablet) 100 mcg PO DAILY [facility] Last Admin: 10/10/21 09:07 Dose: 100 mcg Documented by: Diclofenac Sodium (Diclofenac Sodium Delayed Rel 50 Mg Tablet.) 50 mg PO TID [facility] Last Admin: 10/10/21 09:05 Dose: 50 mg Documented by: Diphenhydramine HCl (Diphenhydramine Hcl 25 Mg Tablet) 50 mg PO Q6H PRN PRN Reason: eps Last Admin: 09/22/21 23:48 Dose: 50 mg Documented by: Docusate Sodium (Docusate Sodium 100 Mg Capsule) 100 mg PO BID [facility] Last Admin: 10/10/21 09:05 Dose: 100 mg Documented by: Gabapentin (Gabapentin 400 Mg Capsule) 800 mg PO TID [facility] Last Admin: 10/10/21 09:04 Dose: 800 mg Documented by: Gabapentin (Gabapentin 100 Mg Capsule) 100 mg PO TID PRN PRN Reason: neuropathic pain Last Admin: 09/26/21 17:14 Dose: 100 mg Documented by: Hydroxyzine HCl (Hydroxyzine Hcl 25 Mg Tablet) 25 mg PO BEDTIME PRN PRN Reason: Anxiety Last Admin: 09/22/21 23:48 Dose: 25 mg Documented by: Hydroxyzine HCl (Hydroxyzine Hcl 25 Mg Tablet) 25 mg PO BEDTIME [facility] Last Admin: 10/09/21 22:18 Dose: 25 mg Documented by: Lidocaine (Lidocaine 4 % Patch Adh..Patch) 1 patch TRANSDERMA DAILY [facility]; Protocol Last Admin: 10/10/21 09:10 Dose: Not Given Documented by: Lidocaine (Lidocaine 4 % Patch Adh..Patch) 1 patch TRANSDERMA DAILY YAYA; Protocol Last Admin: 10/10/21 09:10 Dose: Not Given Documented by: [place] Carbonate ([place] Carbonate 300 Mg Tablet) 300 mg PO BID [facility] Last Admin: 10/10/21 09:06 Dose: 300 mg Documented by: Lorazepam (Lorazepam 1 Mg Tablet) 1 mg PO Q8H PRN PRN Reason: agitation, anxiety Last Admin: 10/10/21 03:22 Dose: 1 mg Documented by: Magnesium Citrate (Magnesium Citrate 300 Ml Solution) 300 ml PO DAILY PRN PRN Reason: Constipation Last Admin: 10/07/21 19:49 Dose: 300 ml Documented by: Magnesium Hydroxide (Milk Of Magnesia 30 Ml Oral.Susp) 30 ml PO DAILY PRN PRN Reason: Constipation Last Admin: 08/31/21 20:05 Dose: 30 ml Documented by: Melatonin (Melatonin 3 Mg Tablet) 9 mg PO BEDTIME YAYA Last Admin: 10/09/21 22:17 Dose: 9 mg Documented by: Multi-Ingred Cream/Lotion/Oil/Oint (Mineral Oil/Petrolatum,White 106 Gm Tube) 1 appl TOPICAL BID [facility]; Protocol Last Admin: 10/10/21 09:10 Dose: Not Given Documented by: Multivitamins/Vitamin C (Multivitamin Tablet) 1 tab PO DAILY [facility] Last Admin: 10/10/21 09:07 Dose: 1 tab Documented by: Nicotine (Nicotine 14 Mg Patch.Td24) 14 mg TRANSDERMA DAILY [facility] Last Admin: 10/10/21 09:08 Dose: 14 mg Documented by: Nicotine Polacrilex (Nicotine Polacrilex 2 Mg Gum) 4 mg BUCCAL Q1H PRN PRN Reason: Nicotine Cravings Last Admin: 10/09/21 21:25 Dose: 4 mg Documented by: Psyllium Hydrophilic Mucilloid (Psyllium Seed 3.4 Gm Powd.Pack) 3.4 gm PO DAILY [facility] Last Admin: 10/10/21 09:08 Dose: 3.4 gm Documented by: Quetiapine Fumarate (Quetiapine Fumarate 200 Mg Tablet) 200 mg PO Q6H PRN PRN Reason: anxiety/restlessness Last Admin: 09/21/21 02:38 Dose: 200 mg Documented by: Quetiapine Fumarate (Quetiapine Fumarate 100 Mg Tablet) 100 mg PO DAILY [facility] Last Admin: 10/10/21 09:07 Dose: 100 mg Documented by: Quetiapine Fumarate (Quetiapine Fumarate 300 Mg Tablet) 600 mg PO BEDTIME [facility] Last Admin: 10/09/21 22:18 Dose: 600 mg Documented by: Ropinirole HCl (Ropinirole Hcl 0.5 Mg Tablet) 0.5 mg PO 0800 [facility] Last Admin: 10/10/21 09:07 Dose: 0.5 mg Documented by: Ropinirole HCl (Ropinirole Hcl 1 Mg Tablet) 2 mg PO DAILY@1900 [facility] Last Admin: 10/09/21 21:21 Dose: 2 mg Documented by: Senna/Docusate Sodium (Sennosides/Docusate Sodium Tablet) 1 tab PO BID [facility] Last Admin: 10/10/21 09:06 Dose: 1 tab Documented by: Simethicone (Simethicone 80 Mg Tab.Chew) 80 mg PO QIDWMHS PRN PRN Reason: indigestion Sodium Chloride (Sodium Chloride 0.65 % Nasal 44 Ml Sprbtl) 1 spray NOSTRIL-B Q 1H PRN PRN Reason: congestion Last Admin: 10/09/21 09:26 Dose: 1 spray Documented by: Trolamine Salicylate/Aloe Vera (Trolamine Salicylate 10%/Aloe Cream 35.4 Gm) 1 appl TOPICAL TID PRN PRN Reason: sciatica Last Admin: 09/03/21 05:27 Dose: 1 appl Documented by: Ziprasidone (Ziprasidone 20 Mg Capsule) 20 mg PO BID PRN PRN Reason: psychosis Allergies Allergies Allergy/AdvReac Type Severity Reaction Status Date / Time aripiprazole [From Abilify] Allergy Unknown Involuntary Verified 08/19/21 07:20 Spasms chlorpromazine Allergy Unknown Nausea and Verified 08/19/21 07:20 [From Thorazine] Vomiting haloperidol [From Haldol] Allergy Unknown Involuntary Verified 08/19/21 07:20 Spasms olanzapine [From Zyprexa] Allergy Unknown Involuntary Verified 08/19/21 07:20 Spasms paliperidone [From Invega] Allergy Unknown Hallucinati Verified 08/19/21 07:20 ons risperidone Allergy Unknown Involuntary Verified 08/19/21 07:20 Spasms Assessment & Plan Assessment & Plan (1) Schizoaffective disorder, bipolar type: Status: Acute Code(s): F25.0 - Schizoaffective disorder, bipolar type Assessment and Plan: Continue current plan (2) Lumbar radiculopathy: Status: Acute Code(s): M54.16 - Radiculopathy, lumbar region (3) Hip pain, left: Status: Acute Code(s): M25.552 - Pain in left hip Plan 09/20/21- Improving. Transition planning with [facility]. Pt is looking at discharge to a rest home and transitioning to [facility] services in [facility]. No medication changes today. 09/21: stable on current medications. on seroquel and lithium, c/o of hip pain on ibuprofen with partial response. no behavioral concerns. no overt delusional content nor psychosis noted. 09/22/21: Continue plan of care. 09/23/21: Ortho consult-Left hip pain Pt has requested a flu shot. Discharge planning-pt considering a rest home as a temporary [place]. 09/24 continue per primary treatment team. 09/25: no med changes, pt is sig less manic 09/27/21: Continue plan of care. Transitioning from [facility] to local office. 09/28/21: Continue plan of care. Support in transition and discharge planning. Refusal of [place] discussed with Blanca. Discussed other options- she will consider. 10/01/21: Continue plan of care. Fe, TIBC, ESR, CRP, RF, Vit D, CCP 10/03/21: Discontinue clonidine, mirtazapine Change diclofenic to 50 mg tid 10/06/21 Continue current regime 10/07/21 Colace 100 mg bid, high fiber diet 10/10/2021 continue current plan discharge planning I spent minutes with the patient and/or on the patient floor today, greater than?50% of which was spent counseling/coordinating care. Patient educated on: therapeutic strategies Reason for contiued inpatient stay Substantial Risk for: inability to function
[2021-10-10] MEDS: Magnesium Citrate 300 ML SOLUTION PO (13:37)
[2021-10-10] MEDS: Nicotine Polacrilex 2 MG GUM 4 MG BUCCAL ×2 (13:37→19:24)
[2021-10-10] MEDS: rOPINIRole HCL 1 MG TABLET 2 MG PO (19:24)
[2021-10-10 19:30] VITALS: BP 126/90; PULSE 90; TEMP 36.9
[2021-10-10] MEDS: Melatonin 3 MG TABLET 9 MG PO (21:16)
[2021-10-10] MEDS: QUEtiapine Fumarate 300 MG TABLET 600 MG PO (21:16)
[2021-10-10] MEDS: hydrOXYzine HCL 25 MG TABLET PO (21:17)
[2021-10-11] MEDS: Gabapentin 400 MG CAPSULE 800 MG PO ×3 (09:21→21:13)
[2021-10-11] MEDS: Docusate Sodium 100 MG CAPSULE PO (09:21)
[2021-10-11] MEDS: rOPINIRole HCL 0.5 MG TABLET PO (09:31)
[2021-10-11] MEDS: Lithium Carbonate 300 MG TABLET PO ×2 (09:31→21:13)
[2021-10-11] MEDS: Sennosides/Docusate Sodium TABLET 1 TAB PO ×2 (09:31→21:13)
[2021-10-11] MEDS: Cyanocobalamin (Vitamin B-12) 100 MCG TABLET PO (09:32)
[2021-10-11] MEDS: QUEtiapine Fumarate 100 MG TABLET PO (09:32)
[2021-10-11] MEDS: Multivitamin TABLET 1 TAB PO (09:32)
[2021-10-11] MEDS: Diclofenac Sodium Delayed Rel 50 MG TABLET.DR PO ×3 (09:32→19:57)
[2021-10-11] MEDS: amLODIPine Besylate 2.5 MG TABLET PO (09:33)
[2021-10-11] MEDS: Nicotine 14 MG PATCH.TD24 TRANSDERMA (09:35)
--- NOTE | 2021-10-11 09:53 | P.PNPSI_ITS ---
Subjective Subjective Date of Service: 10/11/21 Reason For Visit: Bipolar, Schizoaffective Subjective Notes: Conditional Voluntary Interim History: Patient was seen and discussed in rounds today. Records were reviewed. She continues to be preoccupied and concerned about discharge planning. Questions about Seroquel discussed. No major complaints or side effects. Eating and sleeping adequately. No changes were made today Medication Compliance: Yes Side effects from medications: No Review of Systems Review of Systems Yes all other systems are reviewed and are negative Mental Status Exam Mental Status Exam Narrative: In today's visit she is alert, oriented and pleasant. Speech is normal. Minimal eye contact. Affect is appropriate and constricted. No signs of psychosis. No SI. No delusions. Cognitively intact. Judgment is intact Diagnostics Vital Signs (24Hr): Vital Signs - 24 hr 10/10/21 19:30 Temperature 98.5 F Pulse Rate 90 Blood Pressure 126/90 H BMI result Body Mass Index 32.8 Labs Results: 10/07/21 08:06 Imaging Radiology Impressions: ITS Impressions Abdomen Ultrasound 09/01/21 08:59 IMPRESSION: Slightly echogenic liver. Limited evaluation of the gallbladder as the patient has recently eaten. No gallstone seen. Limited visualization of the pancreas. Hip X-Ray 09/16/21 14:47 IMPRESSION: Moderate to severe left hip arthritis. Medications Medications Current Medications Acetaminophen (Acetaminophen 325 Mg Tablet) 975 mg PO Q6H PRN PRN Reason: Headache/Pain Mild Scale (1-3) Last Admin: 10/08/21 19:57 Dose: 975 mg Documented by: Al Hydroxide/Mg Hydroxide (Magnesium Hydrox/Alum Hydrox 30 Ml Oral.Susp) 30 ml PO Q6H PRN PRN Reason: Heartburn/Nausea Last Admin: 08/22/21 05:54 Dose: 30 ml Documented by: Amlodipine Besylate (Amlodipine Besylate 2.5 Mg Tablet) 2.5 mg PO DAILY YAYA; Protocol Last Admin: 10/11/21 09:33 Dose: 2.5 mg Documented by: Artificial Tears (Artificial Tears 15 Ml Drops) 2 drop EYE-BOTH Q4H PRN PRN Reason: Dry Eyes Last Admin: 10/09/21 09:27 Dose: 2 drop Documented by: Aspirin (Aspirin Enteric Coated 325 Mg Tablet.) 650 mg PO DAILY PRN PRN Reason: headache Last Admin: 09/06/21 12:18 Dose: 650 mg Documented by: Benzocaine (Benzocaine 20 % Oral Gel 9 Gm Tube) 1 appl MUCOUS MEM QID PRN; Protocol PRN Reason: Mouth Sore Pain Last Admin: 08/31/21 03:05 Dose: 1 appl Documented by: Calcium Carbonate (Calcium Carbonate 500 Mg Tablet) 500 mg PO DAILY [facility] Last Admin: 10/11/21 09:33 Dose: 500 mg Documented by: [place] Butter/Zinc Oxide ([place] Butter/Zinc Oxide Supp.Rect) 1 supp [place] BEDTIME PRN PRN Reason: hemorrhoid pain Last Admin: 09/13/21 21:15 Dose: 1 supp Documented by: Cyanocobalamin (Cyanocobalamin (Vitamin B-12) 100 Mcg Tablet) 100 mcg PO DAILY [facility] Last Admin: 10/11/21 09:32 Dose: 100 mcg Documented by: Diclofenac Sodium (Diclofenac Sodium Delayed Rel 50 Mg Tablet.) 50 mg PO TID [facility] Last Admin: 10/11/21 09:32 Dose: 50 mg Documented by: Diphenhydramine HCl (Diphenhydramine Hcl 25 Mg Tablet) 50 mg PO Q6H PRN PRN Reason: eps Last Admin: 09/22/21 23:48 Dose: 50 mg Documented by: Docusate Sodium (Docusate Sodium 100 Mg Capsule) 100 mg PO BID [facility] Last Admin: 10/11/21 09:21 Dose: 100 mg Documented by: Gabapentin (Gabapentin 400 Mg Capsule) 800 mg PO TID [facility] Last Admin: 10/11/21 09:21 Dose: 800 mg Documented by: Gabapentin (Gabapentin 100 Mg Capsule) 100 mg PO TID PRN PRN Reason: neuropathic pain Last Admin: 09/26/21 17:14 Dose: 100 mg Documented by: Hydroxyzine HCl (Hydroxyzine Hcl 25 Mg Tablet) 25 mg PO BEDTIME PRN PRN Reason: Anxiety Last Admin: 09/22/21 23:48 Dose: 25 mg Documented by: Hydroxyzine HCl (Hydroxyzine Hcl 25 Mg Tablet) 25 mg PO BEDTIME [facility] Last Admin: 10/10/21 21:17 Dose: 25 mg Documented by: Lidocaine (Lidocaine 4 % Patch Adh..Patch) 1 patch TRANSDERMA DAILY YAYA; Pro tocol Last Admin: 10/10/21 09:10 Dose: Not Given Documented by: Lidocaine (Lidocaine 4 % Patch Adh..Patch) 1 patch TRANSDERMA DAILY [facility]; Protocol Last Admin: 10/10/21 09:10 Dose: Not Given Documented by: [place] Carbonate ([place] Carbonate 300 Mg Tablet) 300 mg PO BID [facility] Last Admin: 10/11/21 09:31 Dose: 300 mg Documented by: Lorazepam (Lorazepam 1 Mg Tablet) 1 mg PO Q8H PRN PRN Reason: agitation, anxiety Last Admin: 10/10/21 21:16 Dose: 1 mg Documented by: Magnesium Citrate (Magnesium Citrate 300 Ml Solution) 300 ml PO DAILY PRN PRN Reason: Constipation Last Admin: 10/10/21 13:37 Dose: 300 ml Documented by: Magnesium Hydroxide (Milk Of Magnesia 30 Ml Oral.Susp) 30 ml PO DAILY PRN PRN Reason: Constipation Last Admin: 08/31/21 20:05 Dose: 30 ml Documented by: Melatonin (Melatonin 3 Mg Tablet) 9 mg PO BEDTIME [facility] Last Admin: 10/10/21 21:16 Dose: 9 mg Documented by: Multi-Ingred Cream/Lotion/Oil/Oint (Mineral Oil/Petrolatum,White 106 Gm Tube) 1 appl TOPICAL BID [facility]; Protocol Last Admin: 10/10/21 23:47 Dose: Not Given Documented by: Multivitamins/Vitamin C (Multivitamin Tablet) 1 tab PO DAILY [facility] Last Admin: 10/11/21 09:32 Dose: 1 tab Documented by: Nicotine (Nicotine 14 Mg Patch.Td24) 14 mg TRANSDERMA DAILY [facility] Last Admin: 10/11/21 09:35 Dose: 14 mg Documented by: Nicotine Polacrilex (Nicotine Polacrilex 2 Mg Gum) 4 mg BUCCAL Q1H PRN PRN Reason: Nicotine Cravings Last Admin: 10/10/21 19:24 Dose: 4 mg Documented by: Psyllium Hydrophilic Mucilloid (Psyllium Seed 3.4 Gm Powd.Pack) 3.4 gm PO DAILY [facility] Last Admin: 10/11/21 09:51 Dose: 3.4 gm Documented by: Quetiapine Fumarate (Quetiapine Fumarate 200 Mg Tablet) 200 mg PO Q6H PRN PRN Reason: anxiety/restlessness Last Admin: 09/21/21 02:38 Dose: 200 mg Documented by: Quetiapine Fumarate (Quetiapine Fumarate 100 Mg Tablet) 100 mg PO DAILY [facility] Last Admin: 10/11/21 09:32 Dose: 100 mg Documented by: Quetiapine Fumarate (Quetiapine Fumarate 300 Mg Tablet) 600 mg PO BEDTIME [facility] Last Admin: 10/10/21 21:16 Dose: 600 mg Documented by: Ropinirole HCl (Ropinirole Hcl 0.5 Mg Tablet) 0.5 mg PO 0800 [facility] Last Admin: 10/11/21 09:31 Dose: 0.5 mg Documented by: Ropinirole HCl (Ropinirole Hcl 1 Mg Tablet) 2 mg PO DAILY@1900 [facility] Last Admin: 10/10/21 19:24 Dose: 2 mg Documented by: Senna/Docusate Sodium (Sennosides/Docusate Sodium Tablet) 1 tab PO BID [facility] Last Admin: 10/11/21 09:31 Dose: 1 tab Documented by: Simethicone (Simethicone 80 Mg Tab.Chew) 80 mg PO QIDWMHS PRN PRN Reason: indigestion Sodium Chloride (Sodium Chloride 0.65 % Nasal 44 Ml Sprbtl) 1 spray NOSTRIL-B Q1H PRN PRN Reason: congestion Last Admin: 10/09/21 09:26 Dose: 1 spray Documented by: Trolamine Salicylate/Aloe Vera (Trolamine Salicylate 10%/Aloe Cream 35.4 Gm) 1 appl TOPICAL TID PRN PRN Reason: sciatica Last Admin: 09/03/21 05:27 Dose: 1 appl Documented by: Ziprasidone (Ziprasidone 20 Mg Capsule) 20 mg PO BID PRN PRN Reason: psychosis Allergies Allergies Allergy/AdvReac Type Severity Reaction Status Date / Time aripiprazole [From Abilify] Allergy Unknown Involuntary Verified 08/19/21 07:20 Spasms chlorpromazine Allergy Unknown Nausea and Verified 08/19/21 07:20 [From Thorazine] Vomiting haloperidol [From Haldol] Allergy Unknown Involuntary Verified 08/19/21 07:20 Spasms olanzapine [From Zyprexa] Allergy Unknown Involuntary Verified 08/19/21 07:20 Spasms paliperidone [From Invega] Allergy Unknown Hallucinati Verified 08/19/21 07:20 ons risperidone Allergy Unknown Involuntary Verified 08/19/21 07:20 Spasms Assessment & Plan Assessment & Plan (1) Schizoaffective disorder, bipolar type: Status: Acute Code(s): F25.0 - Schizoaffective disorder, bipolar type Assessment and Plan: Continue current plan (2) Lumbar radiculopathy: Status: Acute Code(s): M54.16 - Radiculopathy, lumbar region (3) Hip pain, left: Status: Acute Code(s): M25.552 - Pain in left hip Plan 09/20/21- Improving. Transition planning with [facility]. Pt is looking at discharge to a rest home and transitioning to [facility] services in [facility]. No medication changes today. 09/21: stable on current medications. on seroquel and lithium, c/o of hip pain on ibuprofen with partial response. no behavioral concerns. no overt delusional content nor psychosis noted. 09/22/21: Continue plan of care. 09/23/21: Ortho consult-Left hip pain Pt has requested a flu shot. Discharge planning-pt considering a rest home as a temporary placement. 09/24 continue per primary treatment team. 09/25: no med changes, pt is sig less manic 09/27/21: Continue plan of care. Transitioning from [facility] to local office. 09/28/21: Continue plan of care. Support in transition and discharge planning. Refusal of [place] discussed with Blanca. Discussed other options- she will consider. 10/01/21: Continue plan of care. Fe, TIBC, ESR, CRP, RF, Vit D, CCP 10/03/21: Discontinue clonidine, mirtazapine Change diclofenic to 50 mg tid 10/06/21 Continue current regime 10/07/21 Colace 100 mg bid, high fiber diet 10/10/2021 continue current plan discharge planning 10/11/2021: Continue current regimen and plans I spent minutes with the patient and/or on the patient floor today, greater than?50% of which was spent counseling/coordinating care. Patient educated on: medication risk/benefits Reason for contiued inpatient stay Substantial Risk for: harm to self, harm to others, inability to function, stable for discharge, rapid decompensation, med/psych decompensation and other
[2021-10-11 10:00] VITALS: BP 130/89; PULSE 86; RESP 16; O2SAT 98
[2021-10-11] MEDS: Nicotine Polacrilex 2 MG GUM 4 MG BUCCAL ×3 (10:01→20:02)
[2021-10-11 18:00] VITALS: BP 124/69; PULSE 86; TEMP 37.1
[2021-10-11] MEDS: rOPINIRole HCL 1 MG TABLET 2 MG PO (19:58)
[2021-10-11] MEDS: Melatonin 3 MG TABLET 9 MG PO (21:12)
[2021-10-11] MEDS: QUEtiapine Fumarate 300 MG TABLET 600 MG PO (21:13)
[2021-10-11] MEDS: hydrOXYzine HCL 25 MG TABLET PO (21:22)
[2021-10-12] MEDS: Nicotine Polacrilex 2 MG GUM 4 MG BUCCAL ×3 (10:26→20:30)
[2021-10-12] MEDS: Nicotine 14 MG PATCH.TD24 TRANSDERMA (10:26)
[2021-10-12] MEDS: amLODIPine Besylate 2.5 MG TABLET PO (10:26)
[2021-10-12] MEDS: Multivitamin TABLET 1 TAB PO (10:27)
[2021-10-12] MEDS: Sennosides/Docusate Sodium TABLET 1 TAB PO ×2 (10:27→20:30)
[2021-10-12] MEDS: Cyanocobalamin (Vitamin B-12) 100 MCG TABLET PO (10:27)
[2021-10-12] MEDS: Docusate Sodium 100 MG CAPSULE PO (10:27)
[2021-10-12] MEDS: rOPINIRole HCL 0.5 MG TABLET PO (10:27)
[2021-10-12] MEDS: Diclofenac Sodium Delayed Rel 50 MG TABLET.DR PO ×3 (10:27→20:31)
[2021-10-12] MEDS: QUEtiapine Fumarate 100 MG TABLET PO (10:27)
[2021-10-12] MEDS: Lithium Carbonate 300 MG TABLET PO ×2 (10:28→20:32)
[2021-10-12] MEDS: Gabapentin 400 MG CAPSULE 800 MG PO ×3 (10:28→20:31)
[2021-10-12 10:32] VITALS: BP 131/80; PULSE 102; RESP 16; TEMP 35.8; O2SAT 96
--- NOTE | 2021-10-12 14:02 | HO.PSYCHPN ---
Subjective Subjective Date of Service: 10/13/21 Reason For Visit: Bipolar, Schizoaffective Subjective Notes: Conditional Voluntary Healthcare Proxy: No Guardianship: No Interim History: Discussed her discouragement regarding discharge planning and her disappointment regarding the poor response of her assigned team in [place] in helping her transition. . Today, Blanca asks for Ritalin to improve energy, focus. Reports leg stiffness, difficulty with ambulation. Will trial Benztropine on 10/13. Pt reports she has not been accepted to local [facility] homes as she does not have an HCP, Advanced Directives. Medication Compliance: Yes Side effects from medications: Yes (?leg stiffness-?EPS) Attending Groups: Yes Review of Systems Acute medical concerns: No Medical Review of Systems: unchanged Review of Systems Psychiatric: Reports anxiety, Reports depression, Reports difficulty concentrating and Reports hopelessness Mental Status Exam Mental Status Exam Patient Appearance: Appropriate Patient Orientation: Person, Place, Time and Situation Level of Consciousness: Alert Patient Behavior: Talkative and Good Eye Contact Mood Description: Withdrawn and Anxious Affect Description: Anxious and Flat Patient Cognition Impaired: No Ability to Follow Directions: Good Speech Pattern: Spontaneous Speech Memory Description: Intact Hallucinations: Auditory Delusions: Present Thought Process: Goal Oriented Thought Content: positive for Goal Oriented Depressive Symptoms: Increased Anxiety, Feelings of Worthlessness, Hopelessness, Unhappiness, Low Self Esteem and Difficulty Concentrating Judgement: Fair Diagnostics Vital Signs (24Hr): Vital Signs - 24 hr 10/11/21 18:00 10/12/21 10:32 Temperature 98.7 F 96.5 F L Pulse Rate 86 102 H Respiratory Rate 16 Blood Pressure 124/69 131/80 Pulse Oximetry 96 BMI result Body Mass Index 32.8 Labs Results: 10/07/21 08:06 Labs: Vit D 23 TSH 4.49 Imaging Radiology Impressions: ITS Impressions Abdomen Ultrasound 09/01/21 08:59 IMPRESSION: Slightly echogenic liver. Limited evaluation of the gallbladder as the patient has recently eaten. No gallstone seen. Limited visualization of the pancreas. Hip X-Ray 09/16/21 14:47 IMPRESSION: Moderate to severe left hip arthritis. Medications Medications Current Medications Acetaminophen (Acetaminophen 325 Mg Tablet) 975 mg PO Q6H PRN PRN Reason: Headache/Pain Mild Scale (1-3) Last Admin: 10/08/21 19:57 Dose: 975 mg Documented by: Al Hydroxide/Mg Hydroxide (Magnesium Hydrox/Alum Hydrox 30 Ml Oral.Susp) 30 ml PO Q6H PRN PRN Reason: Heartburn/Nausea Last Admin: 08/22/21 05:54 Dose: 30 ml Documented by: Amlodipine Besylate (Amlodipine Besylate 2.5 Mg Tablet) 2.5 mg PO DAILY [facility]; Protocol Last Admin: 10/12/21 10:26 Dose: 2.5 mg Documented by: Artificial Tears (Artificial Tears 15 Ml Drops) 2 drop EYE-BOTH Q4H PRN PRN Reason: Dry Eyes Last Admin: 10/09/21 09:27 Dose: 2 drop Documented by: Aspirin (Aspirin Enteric Coated 325 Mg Tablet.) 650 mg PO DAILY PRN PRN Reason: headache Last Admin: 09/06/21 12:18 Dose: 650 mg Documented by: Benzocaine (Benzocaine 20 % Oral Gel 9 Gm Tube) 1 appl MUCOUS MEM QID PRN; Protocol PRN Reason: Mouth Sore Pain Last Admin: 08/31/21 03:05 Dose: 1 appl Documented by: Calcium Carbonate (Calcium Carbonate 500 Mg Tablet) 500 mg PO DAILY [facility] Last Admin: 10/12/21 10:26 Dose: 500 mg Documented by: [place] Butter/Zinc Oxide ([place] Butter/Zinc Oxide Supp.Rect) 1 supp [place] BEDTIME PRN PRN Reason: hemorrhoid pain Last Admin: 09/13/21 21:15 Dose: 1 supp Documented by: Cyanocobalamin (Cyanocobalamin (Vitamin B-12) 100 Mcg Tablet) 100 mcg PO DAILY [facility] Last Admin: 10/12/21 10:27 Dose: 100 mcg Documented by: Diclofenac Sodium (Diclofenac Sodium Delayed Rel 50 Mg Tablet.) 50 mg PO TID [facility] Last Admin: 10/12/21 10:27 Dose: 50 mg Documented by: Diphenhydramine HCl (Diphenhydramine Hcl 25 Mg Tablet) 50 mg PO Q6H PRN PRN Reason: eps Last Admin: 09/22/21 23:48 Dose: 50 mg Documented by: Docusate Sodium (Docusate Sodium 100 Mg Capsule) 100 mg PO BID [facility] Last Admin: 10/12/21 10:27 Dose: 100 mg Documented by: Gabapentin (Gabapentin 400 Mg Capsule) 800 mg PO TID [facility] Last Admin: 02/22/22 10:28 Dose: 800 mg Documented by: Gabapentin (Gabapentin 100 Mg Capsule) 100 mg PO TID PRN PRN Reason: neuropathic pain Last Admin: 09/26/21 17:14 Dose: 100 mg Documented by: Hydroxyzine HCl (Hydroxyzine Hcl 25 Mg Tablet) 25 mg PO BEDTIME PRN PRN Reason: Anxiety Last Admin: 09/22/21 23:48 Dose: 25 mg Documented by: Hydroxyzine HCl (Hydroxyzine Hcl 25 Mg Tablet) 25 mg PO BEDTIME YAYA Last Admin: 10/11/21 21:22 Dose: 25 mg Documented by: Lidocaine (Lidocaine 4 % Patch Adh..Patch) 1 patch TRANSDERMA DAILY [facility]; Protocol Last Admin: 10/12/21 10:28 Dose: Not Given Documented by: Lidocaine (Lidocaine 4 % Patch Adh..Patch) 1 patch TRANSDERMA DAILY [facility]; Protocol Last Admin: 10/12/21 10:28 Dose: Not Given Documented by: [place] Carbonate ([place] Carbonate 300 Mg Tablet) 300 mg PO BID [facility] Last Admin: 10/12/21 10:28 Dose: 300 mg Documented by: Lorazepam (Lorazepam 1 Mg Tablet) 1 mg PO Q8H PRN PRN Reason: agitation, anxiety Magnesium Citrate (Magnesium Citrate 300 Ml Solution) 300 ml PO DAILY PRN PRN Reason: Constipation Last Admin: 10/10/21 13:37 Dose: 300 ml Documented by: Magnesium Hydroxide (Milk Of Magnesia 30 Ml Oral.Susp) 30 ml PO DAILY PRN PRN Reason: Constipation Last Admin: 08/31/21 20:05 Dose: 30 ml Documented by: Melatonin (Melatonin 3 Mg Tablet) 9 mg PO BEDTIME YAYA Last Admin: 10/11/21 21:12 Dose: 9 mg Documented by: Multi-Ingred Cream/Lotion/Oil/Oint (Mineral Oil/Petrolatum,White 106 Gm Tube) 1 appl TOPICAL BID [facility]; Protocol Last Admin: 10/12/21 10:28 Dose: Not Given Documented by: Multivitamins/Vitamin C (Multivitamin Tablet) 1 tab PO DAILY [facility] Last Admin: 10/12/21 10:27 Dose: 1 tab Documented by: Nicotine (Nicotine 14 Mg Patch.Td24) 14 mg TRANSDERMA DAILY [facility] Last Admin: 10/12/21 10:26 Dose: 14 mg Documented by: Nicotine Polacrilex (Nicotine Polacrilex 2 Mg Gum) 4 mg BUCCAL Q1H PRN PRN Reason: Nicotine Cravings Last Admin: 10/12/21 10:26 Dose: 4 mg Documented by: Psyllium Hydrophilic Mucilloid (Psyllium Seed 3.4 Gm Powd.Pack) 3.4 gm PO DAILY [facility] Last Admin: 10/12/21 10:26 Dose: 3.4 gm Documented by: Quetiapine Fumarate (Quetiapine Fumarate 200 Mg Tablet) 200 mg PO Q6H PRN PRN Reason: anxiety/restlessness Last Admin: 09/21/21 02:38 Dose: 200 mg Documented by: Quetiapine Fumarate (Quetiapine Fumarate 100 Mg Tablet) 100 mg PO DAILY [facility] Last Admin: 10/12/21 10:27 Dose: 100 mg Documented by: Quetiapine Fumarate (Quetiapine Fumarate 300 Mg Tablet) 600 mg PO BEDTIME [facility] Last Admin: 10/11/21 21:13 Dose: 600 mg Documented by: Ropinirole HCl (Ropinirole Hcl 0.5 Mg Tablet) 0.5 mg PO 0800 [facility] Last Admin: 10/12/21 10:27 Dose: 0.5 mg Documented by: Ropinirole HCl (Ropinirole Hcl 1 Mg Tablet) 2 mg PO DAILY@1900 [facility] Last Admin: 10/11/21 19:58 Dose: 2 mg Documented by: Senna/Docusate Sodium (Sennosides/Docusate Sodium Tablet) 1 tab PO BID [facility] Last Admin: 10/12/21 10:27 Dose: 1 tab Documented by: Simethicone (Simethicone 80 Mg Tab.Chew) 80 mg PO QIDWMHS PRN PRN Reason: indigestion Sodium Chloride (Sodium Chloride 0.65 % Nasal 44 Ml Sprbtl) 1 spray NOSTRIL-B Q1H PRN PRN Reason: congestion Last Admin: 10/09/21 09:26 Dose: 1 spray Documented by: Trolamine Salicylate/Aloe Vera (Trolamine Salicylate 10%/Aloe Cream 35.4 Gm) 1 appl TOPICAL TID PRN PRN Reason: sciatica Last Admin: 09/03/21 05:27 Dose: 1 appl Documented by: Ziprasidone (Ziprasidone 20 Mg Capsule) 20 mg PO BID PRN PRN Reason: psychosis Allergies Allergies Allergy/AdvReac Type Severity Reaction Status Date / Time aripiprazole [From Abilify] Allergy Unknown Involuntary Verified 08/19/21 07:20 Spasms chlorpromazine Allergy Unknown Nausea and Verified 08/19/21 07:20 [From Thorazine] Vomiting haloperidol [From Haldol] Allergy Unknown Involuntary Verified 08/19/21 07:20 Spasms olanzapine [From Zyprexa] Allergy Unknown Involuntary Verified 08/19/21 07:20 Spasms paliperidone [From Invega] Allergy Unknown Hallucinati Verified 08/19/21 07:20 ons risperidone Allergy Unknown Involuntary Verified 08/19/21 07:20 Spasms Assessment & Plan Assessment & Plan (1) Schizoaffective disorder, bipolar type: Status: Acute Code(s): F25.0 - Schizoaffective disorder, bipolar type Assessment and Plan: Continue current plan (2) Lumbar radiculopathy: Status: Acute Code(s): M54.16 - Radiculopathy, lumbar region (3) Hip pain, left: Status: Acute Code(s): M25.552 - Pain in left hip Plan 09/20/21- Improving. Transition planning with [facility]. Pt is looking at discharge to a rest home and transitioning to [facility] services in [facility]. No medication changes today. 09/21: stable on current medications. on seroquel and lithium, c/o of hip pain on ibuprofen with partial response. no behavioral concerns. no overt delusional content nor psychosis noted. 09/22/21: Continue plan of care. 09/23/21: Ortho consult-Left hip pain Pt has requested a flu shot. Discharge planning-pt considering a rest home as a temporary placement. 09/24 continue per primary treatment team. 09/25: no med changes, pt is sig less manic 09/27/21: Continue plan of care. Transitioning from [facility] of [facility] to local office. 09/28/21: Continue plan of care. Support in transition and discharge planning. Refusal of [place] discussed with Blanca. Discussed other options-she will consider. 10/01/21: Continue plan of care. Fe, TIBC, ESR, CRP, RF, Vit D, CCP 10/03/21: Discontinue clonidine, mirtazapine Change diclofenic to 50 mg tid 10/06/21 Continue current regime 10/07/21 Colace 100 mg bid, high fiber diet 10/10/2021 continue current plan discharge planning 10/11/2021: Continue current regimen and plans 10/12/21: Reports leg stiffness-?EPS-Benztropine 1 mg bid to begin 10/13. Vitamin D3 10 mcg daily I spent minutes with the patient and/or on the patient floor today, greater than?50% of which was spent counseling/coordinating care. Patient educated on: medication risk/benefits, therapeutic strategies and medical condition Informed Consent: understands Reason for contiued inpatient stay Substantial Risk for: inability to function and rapid decompensation
[2021-10-12 18:00] VITALS: BP 122/82; PULSE 69; RESP 16; TEMP 36.4; O2SAT 96
[2021-10-12] MEDS: Melatonin 3 MG TABLET 9 MG PO (20:32)
[2021-10-12] MEDS: rOPINIRole HCL 1 MG TABLET 2 MG PO (20:32)
[2021-10-12] MEDS: QUEtiapine Fumarate 300 MG TABLET 600 MG PO (20:38)
[2021-10-12] MEDS: LORazepam 1 MG TABLET PO (22:02)
[2021-10-13 06:00] VITALS: BP 132/88; PULSE 77; TEMP 36.6; O2SAT 97
[2021-10-13] MEDS: Nicotine 14 MG PATCH.TD24 TRANSDERMA (10:45)
[2021-10-13] MEDS: Lithium Carbonate 300 MG TABLET PO ×2 (10:45→21:22)
[2021-10-13] MEDS: amLODIPine Besylate 2.5 MG TABLET PO (10:45)
[2021-10-13] MEDS: QUEtiapine Fumarate 100 MG TABLET PO (10:46)
[2021-10-13] MEDS: Diclofenac Sodium Delayed Rel 50 MG TABLET.DR PO ×3 (10:46→18:53)
[2021-10-13] MEDS: Nicotine Polacrilex 2 MG GUM 4 MG BUCCAL ×3 (10:46→18:59)
[2021-10-13] MEDS: Benztropine Mesylate 1 MG TABLET PO (10:46)
[2021-10-13] MEDS: Multivitamin TABLET 1 TAB PO (10:46)
[2021-10-13] MEDS: Sennosides/Docusate Sodium TABLET 1 TAB PO ×2 (10:46→21:21)
[2021-10-13] MEDS: Cyanocobalamin (Vitamin B-12) 100 MCG TABLET PO (10:46)
[2021-10-13] MEDS: Docusate Sodium 100 MG CAPSULE PO (10:47)
[2021-10-13] MEDS: rOPINIRole HCL 0.5 MG TABLET PO (10:47)
[2021-10-13] MEDS: Gabapentin 400 MG CAPSULE 800 MG PO ×3 (10:47→21:21)
--- NOTE | 2021-10-13 14:04 | P.PNPSI_ITS ---
Subjective Subjective Date of Service: 10/13/21 Reason For Visit: Bipolar, Schizoaffective Subjective Notes: Conditional Voluntary Healthcare Proxy: No Guardianship: No Medical Problems Affecting Mental Status: No Interim History: Spending much time in her room, reading, writing, drawing, coloring. Reported difficulty walking, stiffness for ~5 days. Benztropine ordered however she asks to discontinue this as she believes it is not EPS related. Worried about placement, finances, and transfer of her [facility] area to [facility]. Medication Compliance: Yes Side effects from medications: No Attending Groups: Intermittent Review of Systems Acute medical concerns: No Medical Review of Systems: unchanged Review of Systems Psychiatric: Reports anxiety, Reports depression, Reports difficulty concentrating and Reports hopelessness Mental Status Exam Mental Status Exam Patient Appearance: Appropriate Patient Orientation: Person, Place, Time and Situation Level of Consciousness: Alert Patient Behavior: Talkative and Good Eye Contact Mood Description: Withdrawn and Anxious Affect Description: Anxious and Flat Patient Cognition Impaired: No Ability to Follow Directions: Good Speech Pattern: Spontaneous Speech Memory Description: Intact Hallucinations: Auditory Delusions: Present Thought Process: Goal Oriented Thought Content: positive for Goal Oriented Depressive Symptoms: Increased Anxiety, Feelings of Worthlessness, Hopelessness, Unhappiness, Low Self Esteem and Difficulty Concentrating Judgement: Fair Diagnostics Vital Signs (24Hr): Vital Signs - 24 hr 10/12/21 18:00 10/13/21 06:00 Temperature 97.6 F 97.8 F Pulse Rate 69 77 Respiratory Rate 16 Blood Pressure 122/82 132/88 Pulse Oximetry 96 97 BMI result Body Mass Index 32.8 Labs Results: 10/07/21 08:06 Imaging Radiology Impressions: ITS Impressions Abdomen Ultrasound 09/01/21 08:59 IMPRESSION: Slightly echogenic liver. Limited evaluation of the gallbladder as the patient has recently eaten. No gallstone seen. Limited visualization of the pancreas. Hip X-Ray 09/16/21 14:47 IMPRESSION: Moderate to severe left hip arthritis. Medications Medications Current Medications Acetaminophen (Acetaminophen 325 Mg Tablet) 975 mg PO Q6H PRN PRN Reason: Headache/Pain Mild Scale (1-3) Last Admin: 10/08/21 19:57 Dose: 975 mg Documented by: Al Hydroxide/Mg Hydroxide (Magnesium Hydrox/Alum Hydrox 30 Ml Oral.Susp) 30 ml PO Q6H PRN PRN Reason: Heartburn/Nausea Last Admin: 08/22/21 05:54 Dose: 30 ml Documented by: Amlodipine Besylate (Amlodipine Besylate 2.5 Mg Tablet) 2.5 mg PO DAILY [facility]; Protocol Last Admin: 10/13/21 10:45 Dose: 2.5 mg Documented by: Artificial Tears (Artificial Tears 15 Ml Drops) 2 drop EYE-BOTH Q4H PRN PRN Reason: Dry Eyes Last Admin: 10/09/21 09:27 Dose: 2 drop Documented by: Aspirin (Aspirin Enteric Coated 325 Mg Tablet.) 650 mg PO DAILY PRN PRN Reason: headache Last Admin: 09/06/21 12:18 Dose: 650 mg Documented by: Benzocaine (Benzocaine 20 % Oral Gel 9 Gm Tube) 1 appl MUCOUS MEM QID PRN; Protocol PRN Reason: Mouth Sore Pain Last Admin: 08/31/21 03:05 Dose: 1 appl Documented by: Benztropine Mesylate (Benztropine Mesylate 1 Mg Tablet) 1 mg PO BID [facility] Last Admin: 10/13/21 10:46 Dose: 1 mg Documented by: Calcium Carbonate (Calcium Carbonate 500 Mg Tablet) 500 mg PO DAILY [facility] Last Admin: 10/13/21 10:46 Dose: 500 mg Documented by: [place] Butter/Zinc Oxide ([place] Butter/Zinc Oxide Supp.Rect) 1 supp [place] BEDTIME PRN PRN Reason: hemorrhoid pain Last Admin: 09/13/21 21:15 Dose: 1 supp Documented by: Cyanocobalamin (Cyanocobalamin (Vitamin B-12) 100 Mcg Tablet) 100 mcg PO DAILY [facility] Last Admin: 10/13/21 10:46 Dose: 100 mcg Documented by: Diclofenac Sodium (Diclofenac Sodium Delayed Rel 50 Mg Tablet.) 50 mg PO TID [facility] Last Admin: 10/13/21 10:46 Dose: 50 mg Documented by: Diphenhydramine HCl (Diphenhydramine Hcl 25 Mg Tablet) 50 mg PO Q6H PRN PRN Reason: eps Last Admin: 09/22/21 23:48 Dose: 50 mg Documented by: Docusate Sodium (Docusate Sodium 100 Mg Capsule) 100 mg PO BID [facility] Last Admin: 10/13/21 10:47 Dose: 100 mg Documented by: Gabapentin (Gabapentin 400 Mg Capsule) 800 mg PO TID [facility] Last Admin: 10/13/21 10:47 Dose: 800 mg Documented by: Gabapentin (Gabapentin 100 Mg Capsule) 100 mg PO TID PRN PRN Reason: neuropathic pain Last Admin: 09/26/21 17:14 Dose: 100 mg Documented by: Hydroxyzine HCl (Hydroxyzine Hcl 25 Mg Tablet) 25 mg PO BEDTIME PRN PRN Reason: Anxiety Last Admin: 09/22/21 23:48 Dose: 25 mg Documented by: Hydroxyzine HCl (Hydroxyzine Hcl 25 Mg Tablet) 25 mg PO BEDTIME YAYA Last Admin: 10/12/21 21:57 Dose: Not Given Documented by: Lidocaine (Lidocaine 4 % Patch Adh..Patch) 1 patch TRANSDERMA DAILY [facility]; Protocol Last Admin: 10/13/21 10:47 Dose: Not Given Documented by: Lidocaine (Lidocaine 4 % Patch Adh..Patch) 1 patch TRANSDERMA DAILY [facility]; Protocol Last Admin: 10/13/21 10:48 Dose: Not Given Documented by: [place] Carbonate ([place] Carbonate 300 Mg Tablet) 300 mg PO BID [facility] Last Admin: 10/13/21 10:45 Dose: 300 mg Documented by: Lorazepam (Lorazepam 1 Mg Tablet) 1 mg PO Q8H PRN PRN Reason: agitation, anxiety Last Admin: 10/12/21 22:02 Dose: 1 mg Documented by: Magnesium Citrate (Magnesium Citrate 300 Ml Solution) 300 ml PO DAILY PRN PRN Reason: Constipation Last Admin: 10/10/21 13:37 Dose: 300 ml Documented by: Magnesium Hydroxide (Milk Of Magnesia 30 Ml Oral.Susp) 30 ml PO DAILY PRN PRN Reason: Constipation Last Admin: 08/31/21 20:05 Dose: 30 ml Documented by: Melatonin (Melatonin 3 Mg Tablet) 9 mg PO BEDTIME YAYA Last Admin: 10/12/21 20:32 Dose: 9 mg Documented by: Multi-Ingred Cream/Lotion/Oil/Oint (Mineral Oil/Petrolatum,White 106 Gm Tube) 1 appl TOPICAL BID [facility]; Protocol Last Admin: 10/13/21 10:48 Dose: Not Given Documented by: Multivitamins/Vitamin C (Multivitamin Tablet) 1 tab PO DAILY [facility] Last Admin: 10/13/21 10:46 Dose: 1 tab Documented by: Nicotine (Nicotine 14 Mg Patch.Td24) 14 mg TRANSDERMA DAILY [facility] Last Admin: 10/13/21 10:45 Dose: 14 mg Documented by: Nicotine Polacrilex (Nicotine Polacrilex 2 Mg Gum) 4 mg BUCCAL Q1H PRN PRN Reason: Nicotine Cravings Last Admin: 10/13/21 10:46 Dose: 4 mg Documented by: Psyllium Hydrophilic Mucilloid (Psyllium Seed 3.4 Gm Powd.Pack) 3.4 gm PO DAILY [facility] Last Admin: 10/13/21 10:45 Dose: 3.4 gm Documented by: Quetiapine Fumarate (Quetiapine Fumarate 200 Mg Tablet) 200 mg PO Q6H PRN PRN Reason: anxiety/restlessness Last Admin: 09/21/21 02:38 Dose: 200 mg Documented by: Quetiapine Fumarate (Quetiapine Fumarate 100 Mg Tablet) 100 mg PO DAILY [facility] Last Admin: 10/13/21 10:46 Dose: 100 mg Documented by: Quetiapine Fumarate (Quetiapine Fumarate 300 Mg Tablet) 600 mg PO BEDTIME [facility] Last Admin: 10/12/21 20:38 Dose: 600 mg Documented by: Ropinirole HCl (Ropinirole Hcl 0.5 Mg Tablet) 0.5 mg PO 0800 [facility] Last Admin: 10/13/21 10:47 Dose: 0.5 mg Documented by: Ropinirole HCl (Ropinirole Hcl 1 Mg Tablet) 2 mg PO DAILY@1900 [facility] Last Admin: 10/12/21 20:32 Dose: 2 mg Documented by: Senna/Docusate Sodium (Sennosides/Docusate Sodium Tablet) 1 tab PO BID [facility] Last Admin: 10/13/21 10:46 Dose: 1 tab Documented by: Simethicone (Simethicone 80 Mg Tab.Chew) 80 mg PO QIDWMHS PRN PRN Reason: indigestion Sodium Chloride (Sodium Chloride 0.65 % Nasal 44 Ml Sprbtl) 1 spray NOSTRIL-B Q1H PRN PRN Reason: congestion Last Admin: 10/09/21 09:26 Dose: 1 spray Documented by: Trolamine Salicylate/Aloe Vera (Trolamine Salicylate 10%/Aloe Cream 35.4 Gm) 1 appl TOPICAL TID PRN PRN Reason: sciatica Last Admin: 09/03/21 05:27 Dose: 1 appl Documented by: Vitamin D (Cholecalciferol (Vitamin D3) 10 Mcg Tablet) 10 mcg PO DAILY YAY[facility] Last Admin: 10/13/21 10:47 Dose: Not Given Documented by: Ziprasidone (Ziprasidone 20 Mg Capsule) 20 mg PO BID PRN PRN Reason: psychosis Allergies Allergies Allergy/AdvReac Type Severity Reaction Status Date / Time aripiprazole [From Abilify] Allergy Unknown Involuntary Verified 08/19/21 07:20 Spasms chlorpromazine Allergy Unknown Nausea and Verified 08/19/21 07:20 [From Thorazine] Vomiting haloperidol [From Haldol] Allergy Unknown Involuntary Verified 08/19/21 07:20 Spasms olanzapine [From Zyprexa] Allergy Unknown Involuntary Verified 08/19/21 07:20 Spasms paliperidone [From Invega] Allergy Unknown Hallucinati Verified 08/19/21 07:20 ons risperidone Allergy Unknown Involuntary Verified 08/19/21 07:20 Spasms Assessment & Plan Assessment & Plan (1) Schizoaffective disorder, bipolar type: Status: Acute Code(s): F25.0 - Schizoaffective disorder, bipolar type Assessment and Plan: Continue current plan (2) Lumbar radiculopathy: Status: Acute Code(s): M54.16 - Radiculopathy, lumbar region (3) Hip pain, left: Status: Acute Code(s): M25.552 - Pain in left hip Plan 09/20/21- Improving. Transition planning with [facility]. Pt is looking at discharge to a rest home and transitioning to [facility] services in [facility]. No medication changes today. 09/21: stable on current medications. on seroquel and lithium, c/o of hip pain on ibuprofen with partial response. no behavioral concerns. no overt delusional content nor psychosis noted. 09/22/21: Continue plan of care. 09/23/21: Ortho consult-Left hip pain Pt has requested a flu shot. Discharge planning-pt considering a rest home as a temporary placement. 09/24 continue per primary treatment team. 09/25: no med changes, pt is sig less manic 09/27/21: Continue plan of care. Transitioning from [facility] of [facility] to local office. 09/28/21: Continue plan of care. Support in transition and discharge planning. Refusal of [place] discussed with Blanca. Discussed other options- she will consider. 10/01/21: Continue plan of care. Fe, TIBC, ESR, CRP, RF, Vit D, CCP 10/03/21: Discontinue clonidine, mirtazapine Change diclofenic to 50 mg tid 10/06/21 Continue current regime 10/07/21 Colace 100 mg bid, high fiber diet 10/10/2021 continue current plan discharge planning 10/11/2021: Continue current regimen and plans 10/12/21: Reports leg stiffness-?EPS-Benztropine 1 mg bid to begin 10/13. Vitamin D3 10 mcg daily 10/13/21: Pt asks to discontinue Benztropine. Asks for no med changes at this time. Reports she is worried about a place to live. I spent minutes with the patient and/or on the patient floor today, greater than?50% of which was spent counseling/coordinating care. Patient educated on: medication risk/benefits and therapeutic strategies Informed Consent: understands and further education needed Reason for contiued inpatient stay Substantial Risk for: inability to function and rapid decompensation
[2021-10-13 16:40] VITALS: BP 125/64; PULSE 96; TEMP 36.6
[2021-10-13] MEDS: rOPINIRole HCL 1 MG TABLET 2 MG PO (18:54)
[2021-10-13] MEDS: Acetaminophen 325 MG TABLET 975 MG PO (18:59)
[2021-10-13] MEDS: Melatonin 3 MG TABLET 9 MG PO (21:21)
[2021-10-13] MEDS: QUEtiapine Fumarate 300 MG TABLET 600 MG PO (21:22)
[2021-10-13] MEDS: hydrOXYzine HCL 25 MG TABLET PO (21:22)
[2021-10-13] MEDS: LORazepam 1 MG TABLET PO (21:53)
[2021-10-14] MEDS: Nicotine 14 MG PATCH.TD24 TRANSDERMA (10:26)
[2021-10-14] MEDS: Nicotine Polacrilex 2 MG GUM 4 MG BUCCAL ×3 (10:27→18:14)
[2021-10-14] MEDS: Lithium Carbonate 300 MG TABLET PO ×2 (10:27→19:42)
[2021-10-14] MEDS: Multivitamin TABLET 1 TAB PO (10:27)
[2021-10-14] MEDS: QUEtiapine Fumarate 100 MG TABLET PO (10:27)
[2021-10-14] MEDS: Diclofenac Sodium Delayed Rel 50 MG TABLET.DR PO ×3 (10:27→19:43)
[2021-10-14] MEDS: Sennosides/Docusate Sodium TABLET 1 TAB PO ×2 (10:27→19:42)
[2021-10-14] MEDS: amLODIPine Besylate 2.5 MG TABLET PO (10:27)
[2021-10-14] MEDS: Docusate Sodium 100 MG CAPSULE PO (10:28)
[2021-10-14] MEDS: Gabapentin 400 MG CAPSULE 800 MG PO ×3 (10:28→19:41)
[2021-10-14] MEDS: Cholecalciferol (Vitamin D3) 10 MCG TABLET PO (10:28)
[2021-10-14] MEDS: Cyanocobalamin (Vitamin B-12) 100 MCG TABLET PO (10:28)
[2021-10-14] MEDS: rOPINIRole HCL 0.5 MG TABLET PO (10:28)
[2021-10-14 10:38] VITALS: BP 112/69; PULSE 85; RESP 16; TEMP 37; O2SAT 97
--- NOTE | 2021-10-14 17:58 | HO.PSYCHPN ---
Subjective Subjective Date of Service: 10/14/21 Reason For Visit: Bipolar, Schizoaffective Subjective Notes: Conditional Voluntary Healthcare Proxy: No Guardianship: No Medical Problems Affecting Mental Status: No Interim History: Reports depressive symptoms-discussed potential adjustments. Pt reports by history, Effexor was helpful. Discussed Cymbalta trial to assist with pain mgt. Pt agrees. Will review contributions to mood cycling and order or represent options. Pt adds that she is situationally depressed and that I will always cycle . Medication Compliance: Yes Side effects from medications: No Attending Groups: Intermittent Review of Systems Acute medical concerns: No Medical Review of Systems: unchanged Review of Systems Psychiatric: Reports anxiety, Reports depression, Reports difficulty concentrating and Reports hopelessness Mental Status Exam Mental Status Exam Patient Appearance: Appropriate Patient Orientation: Person, Place, Time and Situation Level of Consciousness: Alert Patient Behavior: Talkative and Good Eye Contact Mood Description: Withdrawn and Anxious Affect Description: Anxious and Flat Patient Cognition Impaired: No Ability to Follow Directions: Good Speech Pattern: Spontaneous Speech Memory Description: Intact Hallucinations: Auditory Delusions: Present Thought Process: Goal Oriented Thought Content: positive for Goal Oriented Depressive Symptoms: Increased Anxiety, Feelings of Worthlessness, Hopelessness, Unhappiness, Low Self Esteem and Difficulty Concentrating Judgement: Fair Diagnostics Vital Signs (24Hr): Vital Signs - 24 hr 10/14/21 10:38 Temperature 98.6 F Pulse Rate 85 Respiratory Rate 16 Blood Pressure 112/69 Pulse Oximetry 97 BMI result Body Mass Index 32.8 Labs Results: 10/07/21 08:06 Imaging Radiology Impressions: ITS Impressions Abdomen Ultrasound 09/01/21 08:59 IMPRESSION: Slightly echogenic liver. Limited evaluation of the gallbladder as the patient has recently eaten. No gallstone seen. Limited visualization of the pancreas. Hip X-Ray 09/16/21 14:47 IMPRESSION: Moderate to severe left hip arthritis. Medications Medications Current Medications Acetaminophen (Acetaminophen 325 Mg Tablet) 975 mg PO Q6H PRN PRN Reason: Headache/Pain Mild Scale (1-3) Last Admin: 10/13/21 18:59 Dose: 975 mg Documented by: Al Hydroxide/Mg Hydroxide (Magnesium Hydrox/Alum Hydrox 30 Ml Oral.Susp) 30 ml PO Q6H PRN PRN Reason: Heartburn/Nausea Last Admin: 08/22/21 05:54 Dose: 30 ml Documented by: Amlodipine Besylate (Amlodipine Besylate 2.5 Mg Tablet) 2.5 mg PO DAILY [facility]; Protocol Last Admin: 10/14/21 10:27 Dose: 2.5 mg Documented by: Artificial Tears (Artificial Tears 15 Ml Drops) 2 drop EYE-BOTH Q4H PRN PRN Reason: Dry Eyes Last Admin: 10/09/21 09:27 Dose: 2 drop Documented by: Aspirin (Aspirin Enteric Coated 325 Mg Tablet.) 650 mg PO DAILY PRN PRN Reason: headache Last Admin: 09/06/21 12:18 Dose: 650 mg Documented by: Benzocaine (Benzocaine 20 % Oral Gel 9 Gm Tube) 1 appl MUCOUS MEM QID PRN; Protocol PRN Reason: Mouth Sore Pain Last Admin: 08/31/21 03:05 Dose: 1 appl Documented by: Calcium Carbonate (Calcium Carbonate 500 Mg Tablet) 500 mg PO DAILY [facility] Last Admin: 10/14/21 10:27 Dose: 500 mg Documented by: [place] Butter/Zinc Oxide ([place] Butter/Zinc Oxide Supp.Rect) 1 supp [place] BEDTIME PRN PRN Reason: hemorrhoid pain Last Admin: 09/13/21 21:15 Dose: 1 supp Documented by: Cyanocobalamin (Cyanocobalamin (Vitamin B-12) 100 Mcg Tablet) 100 mcg PO DAILY [facility] Last Admin: 10/14/21 10:28 Dose: 100 mcg Documented by: Diclofenac Sodium (Diclofenac Sodium Delayed Rel 50 Mg Tablet.) 50 mg PO TID [facility] Last Admin: 10/14/21 14:24 Dose: 50 mg Documented by: Diphenhydramine HCl (Diphenhydramine Hcl 25 Mg Tablet) 50 mg PO Q6H PRN PRN Reason: eps Last Admin: 09/22/21 23:48 Dose: 50 mg Documented by: Docusate Sodium (Docusate Sodium 100 Mg Capsule) 100 mg PO BID [facility] Last Admin: 10/14/21 10:28 Dose: 100 mg Documented by: Gabapentin (Gabapentin 400 Mg Capsule) 800 mg PO TID [facility] Last Admin: 10/14/21 14:24 Dose: 800 mg Documented by: Gabapentin (Gabapentin 100 Mg Capsule) 100 mg PO TID PRN PRN Reason: neuropathic pain Last Admin: 09/26/21 17:14 Dose: 100 mg Documented by: Hydroxyzine HCl (Hydroxyzine Hcl 25 Mg Tablet) 25 mg PO BEDTIME PRN PRN Reason: Anxiety Last Admin: 09/22/21 23:48 Dose: 25 mg Documented by: Hydroxyzine HCl (Hydroxyzine Hcl 25 Mg Tablet) 25 mg PO BEDTIME [facility] Last Admin: 10/13/21 21:22 Dose: 25 mg Documented by: Lidocaine (Lidocaine 4 % Patch Adh..Patch) 1 patch TRANSDERMA DAILY [facility]; Protocol Last Admin: 10/14/21 10:28 Dose: Not Given Documented by: Lidocaine (Lidocaine 4 % Patch Adh..Patch) 1 patch TRANSDERMA DAILY [facility]; Protocol Last Admin: 10/14/21 10:28 Dose: Not Given Documented by: [place] Carbonate ([place] Carbonate 300 Mg Tablet) 300 mg PO BID [facility] Last Admin: 10/14/21 10:27 Dose: 300 mg Documented by: Lorazepam (Lorazepam 1 Mg Tablet) 1 mg PO Q8H PRN PRN Reason: agitation, anxiety Last Admin: 10/13/21 21:53 Dose: 1 mg Documented by: Magnesium Citrate (Magnesium Citrate 300 Ml Solution) 300 ml PO DAILY PRN PRN Reason: Constipation Last Admin: 10/10/21 13:37 Dose: 300 ml Documented by: Magnesium Hydroxide (Milk Of Magnesia 30 Ml Oral.Susp) 30 ml PO DAILY PRN PRN Reason: Constipation Last Admin: 08/31/21 20:05 Dose: 30 ml Documented by: Melatonin (Melatonin 3 Mg Tablet) 9 mg PO BEDTIME [facility] Last Admin: 10/13/21 21:21 Dose: 9 mg Documented by: Multi-Ingred Cream/Lotion/Oil/Oint (Mineral Oil/Petrolatum,White 106 Gm Tube) 1 appl TOPICAL BID [facility]; Protocol Last Admin: 10/14/21 10:28 Dose: Not Given Documented by: Multivitamins/Vitamin C (Multivitamin Tablet) 1 tab PO DAILY [facility] Last Admin: 10/14/21 10:27 Dose: 1 tab Documented by: Nicotine (Nicotine 14 Mg Patch.Td24) 14 mg TRANSDERMA DAILY [facility] Last Admin: 10/14/21 10:26 Dose: 14 mg Documented by: Nicotine Polacrilex (Nicotine Polacrilex 2 Mg Gum) 4 mg BUCCAL Q1H PRN PRN Reason: Nicotine Cravings Last Admin: 10/14/21 14:30 Dose: 4 mg Documented by: Patient Own Medication (Dry Eye Relief) 1 each EYE-BOTH QID [facility] Last Admin: 10/14/21 14:24 Dose: 1 each Documented by: Psyllium Hydrophilic Mucilloid (Psyllium Seed 3.4 Gm Powd.Pack) 3.4 gm PO DAILY [facility] Last Admin: 10/14/21 10:27 Dose: 3.4 gm Documented by: Quetiapine Fumarate (Quetiapine Fumarate 200 Mg Tablet) 200 mg PO Q6H PRN PRN Reason: anxiety/restlessness Last Admin: 09/21/21 02:38 Dose: 200 mg Documented by: Quetiapine Fumarate (Quetiapine Fumarate 100 Mg Tablet) 100 mg PO DAILY [facility] Last Admin: 10/14/21 10:27 Dose: 100 mg Documented by: Quetiapine Fumarate (Quetiapine Fumarate 300 Mg Tablet) 600 mg PO BEDTIME [facility] Last Admin: 10/13/21 21:22 Dose: 600 mg Documented by: Ropinirole HCl (Ropinirole Hcl 0.5 Mg Tablet) 0.5 mg PO 0800 [facility] Last Admin: 10/14/21 10:28 Dose: 0.5 mg Documented by: Ropinirole HCl (Ropinirole Hcl 1 Mg Tablet) 2 mg PO DAILY@1900 [facility] Last Admin: 10/13/21 18:54 Dose: 2 mg Documented by: Senna/Docusate Sodium (Sennosides/Docusate Sodium Tablet) 1 tab PO BID [facility] Last Admin: 10/14/21 10:27 Dose: 1 tab Documented by: Simethicone (Simethicone 80 Mg Tab.Chew) 80 mg PO QIDWMHS PRN PRN Reason: indigestion Sodium Chloride (Sodium Chloride 0.65 % Nasal 44 Ml Sprbtl) 1 spray NOSTRIL-B Q1H PRN PRN Reason: congestion Last Admin: 10/09/21 09:26 Dose: 1 spray Documented by: Trolamine Salicylate/Aloe Vera (Trolamine Salicylate 10%/Aloe Cream 35.4 Gm) 1 appl TOPICAL TID PRN PRN Reason: sciatica Last Admin: 09/03/21 05:27 Dose: 1 appl Documented by: Vitamin D (Cholecalciferol (Vitamin D3) 10 Mcg Tablet) 10 mcg PO DAILY [facility] Last Admin: 10/14/21 10:28 Dose: 10 mcg Documented by: Ziprasidone (Ziprasidone 20 Mg Capsule) 20 mg PO BID PRN PRN Reason: psychosis Allergies Allergies Allergy/AdvReac Type Severity Reaction Status Date / Time aripiprazole [From Abilify] Allergy Unknown Involuntary Verified 08/19/21 07:20 Spasms chlorpromazine Allergy Unknown Nausea and Verified 08/19/21 07:20 [From Thorazine] Vomiting haloperidol [From Haldol] Allergy Unknown Involuntary Verified 08/19/21 07:20 Spasms olanzapine [From Zyprexa] Allergy Unknown Involuntary Verified 08/19/21 07:20 Spasms paliperidone [From Invega] Allergy Unknown Hallucinati Verified 08/19/21 07:20 ons risperidone Allergy Unknown Involuntary Verified 08/19/21 07:20 Spasms Assessment & Plan Assessment & Plan (1) Schizoaffective disorder, bipolar type: Status: Acute Code(s): F25.0 - Schizoaffective disorder, bipolar type Assessment and Plan: Continue current plan (2) Lumbar radiculopathy: Status: Acute Code(s): M54.16 - Radiculopathy, lumbar region (3) Hip pain, left: Status: Acute Code(s): M25.552 - Pain in left hip Plan 09/20/21- Improving. Transition planning with [facility]. Pt is looking at discharge to a rest home and transitioning to [facility] services in [facility]. No medication changes today. 09/21: stable on current medications. on seroquel and lithium, c/o of hip pain on ibuprofen with partial response. no behavioral concerns. no overt delusional content nor psychosis noted. 09/22/21: Continue plan of care. 09/23/21: Ortho consult-Left hip pain Pt has requested a flu shot. Discharge planning-pt considering a rest home as a temporary placement. 09/24 continue per primary treatment team. 09/25: no med changes, pt is sig less manic 09/27/21: Continue plan of care. Transitioning from [facility] of [facility] to local office. 09/28/21: Continue plan of care. Support in transition and discharge planning. Refusal of [place] discussed with Blanca. Discussed other options-she will consider. 10/01/21: Continue plan of care. Fe, TIBC, ESR, CRP, RF, Vit D, CCP 10/03/21: Discontinue clonidine, mirtazapine Change diclofenic to 50 mg tid 10/06/21 Continue current regime 10/07/21 Colace 100 mg bid, high fiber diet 10/10/2021 continue current plan discharge planning 10/11/2021: Continue current regimen and plans 10/12/21: Reports leg stiffness-?EPS-Benztropine 1 mg bid to begin 10/13. Vitamin D3 10 mcg daily 10/14/21: Continue current regime-await a response from a local rest home regarding placement. I spent minutes with the patient and/or on the patient floor today, greater than?50% of which was spent counseling/coordinating care. Patient educated on: medication risk/benefits Informed Consent: understands and further education needed Reason for contiued inpatient stay Substantial Risk for: inability to function and rapid decompensation
[2021-10-14 18:00] VITALS: BP 124/82; PULSE 89; RESP 16; TEMP 36.5; O2SAT 95
[2021-10-14] MEDS: rOPINIRole HCL 1 MG TABLET 2 MG PO (18:14)
[2021-10-14] MEDS: Acetaminophen 325 MG TABLET 975 MG PO (18:18)
[2021-10-14] MEDS: Melatonin 3 MG TABLET 9 MG PO (19:42)
[2021-10-14] MEDS: QUEtiapine Fumarate 300 MG TABLET 600 MG PO (19:42)
[2021-10-14] MEDS: Artificial Tears 15 ML DROPS 2 DROP EYE-BOTH (19:59)
[2021-10-14] MEDS: LORazepam 1 MG TABLET PO (20:33)
[2021-10-15] MEDS: Nicotine Polacrilex 2 MG GUM 4 MG BUCCAL ×4 (08:41→21:20)
[2021-10-15 10:25] VITALS: BP 133/104; PULSE 93; RESP 16; TEMP 36.9; O2SAT 96
[2021-10-15] MEDS: amLODIPine Besylate 2.5 MG TABLET PO (10:50)
[2021-10-15] MEDS: Sennosides/Docusate Sodium TABLET 1 TAB PO (10:50)
[2021-10-15] MEDS: Cholecalciferol (Vitamin D3) 10 MCG TABLET PO (10:50)
[2021-10-15] MEDS: Lithium Carbonate 300 MG TABLET PO ×2 (10:50→21:20)
[2021-10-15] MEDS: Multivitamin TABLET 1 TAB PO (10:50)
[2021-10-15] MEDS: Diclofenac Sodium Delayed Rel 50 MG TABLET.DR PO ×3 (10:50→21:23)
[2021-10-15] MEDS: QUEtiapine Fumarate 100 MG TABLET PO (10:51)
[2021-10-15] MEDS: rOPINIRole HCL 0.5 MG TABLET PO (10:51)
[2021-10-15] MEDS: Nicotine 14 MG PATCH.TD24 TRANSDERMA (10:51)
[2021-10-15] MEDS: Cyanocobalamin (Vitamin B-12) 100 MCG TABLET PO (10:51)
[2021-10-15] MEDS: Gabapentin 400 MG CAPSULE 800 MG PO ×3 (10:51→21:24)
--- NOTE | 2021-10-15 18:50 | P.PNPSI_ITS ---
Subjective Subjective Date of Service: 10/15/21 Reason For Visit: Bipolar, Schizoaffective Subjective Notes: Conditional Voluntary Healthcare Proxy: No Guardianship: No Medical Problems Affecting Mental Status: No Interim History: Discussed Cymbalta again with pt. Discussed high potential for increase in cycling. Discussed consultation with Dr. Aguero and discussed Vraylar, which pt had trialed on admit-she reports she felt Vraylar contributed to leg pain and stiffness. She is willing to trial low dose Latuda. Asks that colace be discontinued as it is causing loose stools. Medication Compliance: Yes Side effects from medications: No Attending Groups: Intermittent Review of Systems Acute medical concerns: No Medical Review of Systems: unchanged Review of Systems Psychiatric: Reports anxiety, Reports depression, Reports difficulty concentrating and Reports hopelessness Mental Status Exam Mental Status Exam Patient Appearance: Appropriate Patient Orientation: Person, Place, Time and Situation Level of Consciousness: Alert Patient Behavior: Talkative and Good Eye Contact Mood Description: Withdrawn and Anxious Affect Description: Anxious and Flat Patient Cognition Impaired: No Ability to Follow Directions: Good Speech Pattern: Spontaneous Speech Memory Description: Intact Hallucinations: Auditory Delusions: Present Thought Process: Goal Oriented Thought Content: positive for Goal Oriented Depressive Symptoms: Increased Anxiety, Feelings of Worthlessness, Hopelessness, Unhappiness, Low Self Esteem and Difficulty Concentrating Judgement: Fair Diagnostics Vital Signs (24Hr): Vital Signs - 24 hr 10/15/21 10:25 Temperature 98.5 F Pulse Rate 93 Respiratory Rate 16 Blood Pressure 133/104 H Pulse Oximetry 96 BMI result Body Mass Index 32.8 Labs Results: 10/07/21 08:06 Imaging Radiology Impressions: ITS Impressions Abdomen Ultrasound 09/01/21 08:59 IMPRESSION: Slightly echogenic liver. Limited evaluation of the gallbladder as the patient has recently eaten. No gallstone seen. Limited visualization of the pancreas. Hip X-Ray 09/16/21 14:47 IMPRESSION: Moderate to severe left hip arthritis. Medications Medications Current Medications Acetaminophen (Acetaminophen 325 Mg Tablet) 975 mg PO Q6H PRN PRN Reason: Headache/Pain Mild Scale (1-3) Last Admin: 10/14/21 18:18 Dose: 975 mg Documented by: Al Hydroxide/Mg Hydroxide (Magnesium Hydrox/Alum Hydrox 30 Ml Oral.Susp) 30 ml PO Q6H PRN PRN Reason: Heartburn/Nausea Last Admin: 08/22/21 05:54 Dose: 30 ml Documented by: Amlodipine Besylate (Amlodipine Besylate 2.5 Mg Tablet) 2.5 mg PO DAILY [facility]; Protocol Last Admin: 10/15/21 10:50 Dose: 2.5 mg Documented by: Artificial Tears (Artificial Tears 15 Ml Drops) 2 drop EYE-BOTH Q4H PRN PRN Reason: Dry Eyes Last Admin: 10/14/21 19:59 Dose: 2 drop Documented by: Aspirin (Aspirin Enteric Coated 325 Mg Tablet.) 650 mg PO DAILY PRN PRN Reason: headache Last Admin: 09/06/21 12:18 Dose: 650 mg Documented by: Benzocaine (Benzocaine 20 % Oral Gel 9 Gm Tube) 1 appl MUCOUS MEM QID PRN; Protocol PRN Reason: Mouth Sore Pain Last Admin: 08/31/21 03:05 Dose: 1 appl Documented by: Calcium Carbonate (Calcium Carbonate 500 Mg Tablet) 500 mg PO DAILY [facility] Last Admin: 10/15/21 10:50 Dose: 500 mg Documented by: [place] Butter/Zinc Oxide ([place] Butter/Zinc Oxide Supp.Rect) 1 supp [place] BEDTIME PRN PRN Reason: hemorrhoid pain Last Admin: 09/13/21 21:15 Dose: 1 supp Documented by: Cyanocobalamin (Cyanocobalamin (Vitamin B-12) 100 Mcg Tablet) 100 mcg PO DAILY [facility] Last Admin: 10/15/21 10:51 Dose: 100 mcg Documented by: Diclofenac Sodium (Diclofenac Sodium Delayed Rel 50 Mg Tablet.) 50 mg PO TID [facility] Last Admin: 10/15/21 15:08 Dose: 50 mg Documented by: Diphenhydramine HCl (Diphenhydramine Hcl 25 Mg Tablet) 50 mg PO Q6H PRN PRN Reason: eps Last Admin: 09/22/21 23:48 Dose: 50 mg Documented by: Gabapentin (Gabapentin 400 Mg Capsule) 800 mg PO TID [facility] Last Admin: 10/15/21 15:08 Dose: 800 mg Documented by: Gabapentin (Gabapentin 100 Mg Capsule) 100 mg PO TID PRN PRN Reason: neuropathic pain Last Admin: 09/26/21 17:14 Dose: 100 mg Documented by: Hydroxyzine HCl (Hydroxyzine Hcl 25 Mg Tablet) 25 mg PO BEDTIME PRN PRN Reason: Anxiety Last Admin: 09/22/21 23:48 Dose: 25 mg Documented by: Hydroxyzine HCl (Hydroxyzine Hcl 25 Mg Tablet) 25 mg PO BEDTIME [facility] Last Admin: 10/14/21 20:31 Dose: Not Given Documented by: Lidocaine (Lidocaine 4 % Patch Adh..Patch) 1 patch TRANSDERMA DAILY [facility]; Protocol Last Admin: 10/15/21 10:52 Dose: Not Given Documented by: Lidocaine (Lidocaine 4 % Patch Adh..Patch) 1 patch TRANSDERMA DAILY [facility]; Protocol Last Admin: 10/15/21 10:52 Dose: Not Given Documented by: [place] Carbonate ([place] Carbonate 300 Mg Tablet) 300 mg PO BID [facility] Last Admin: 10/15/21 10:50 Dose: 300 mg Documented by: Lorazepam (Lorazepam 1 Mg Tablet) 1 mg PO Q8H PRN PRN Reason: agitation, anxiety Last Admin: 10/14/21 20:33 Dose: 1 mg Documented by: Lurasidone HCl (Lurasidone Hcl 20 Mg Tablet) 20 mg PO BEDTIME [facility] Magnesium Citrate (Magnesium Citrate 300 Ml Solution) 300 ml PO DAILY PRN PRN Reason: Constipation Last Admin: 10/10/21 13:37 Dose: 300 ml Documented by: Magnesium Hydroxide (Milk Of Magnesia 30 Ml Oral.Susp) 30 ml PO DAILY PRN PRN Reason: Constipation Last Admin: 08/31/21 20:05 Dose: 30 ml Documented by: Melatonin (Melatonin 3 Mg Tablet) 9 mg PO BEDTIME [facility] Last Admin: 10/14/21 19:42 Dose: 9 mg Documented by: Multi-Ingred Cream/Lotion/Oil/Oint (Mineral Oil/Petrolatum,White 106 Gm Tube) 1 appl TOPICAL BID [facility]; Protocol Last Admin: 10/15/21 10:52 Dose: Not Given Documented by: Multivitamins/Vitamin C (Multivitamin Tablet) 1 tab PO DAILY [facility] Last Admin: 10/15/21 10:50 Dose: 1 tab Documented by: Nicotine (Nicotine 14 Mg Patch.Td24) 14 mg TRANSDERMA DAILY [facility] Last Admin: 10/15/21 10:51 Dose: 14 mg Documented by: Nicotine Polacrilex (Nicotine Polacrilex 2 Mg Gum) 4 mg BUCCAL Q1H PRN PRN Reason: Nicotine Cravings Last Admin: 10/15/21 15:09 Dose: 4 mg Documented by: Patient Own Medication (Dry Eye Relief) 1 each EYE-BOTH QID [facility] Last Admin: 10/15/21 12:05 Dose: Not Given Documented by: Psyllium Hydrophilic Mucilloid (Psyllium Seed 3.4 Gm Powd.Pack) 3.4 gm PO DAILY [facility] Last Admin: 10/15/21 10:51 Dose: 3.4 gm Documented by: Quetiapine Fumarate (Quetiapine Fumarate 200 Mg Tablet) 200 mg PO Q6H PRN PRN Reason: anxiety/restlessness Last Admin: 09/21/21 02:38 Dose: 200 mg Documented by: Quetiapine Fumarate (Quetiapine Fumarate 100 Mg Tablet) 100 mg PO DAILY [facility] Last Admin: 10/15/21 10:51 Dose: 100 mg Documented by: Quetiapine Fumarate (Quetiapine Fumarate 300 Mg Tablet) 600 mg PO BEDTIME [facility] Last Admin: 10/14/21 19:42 Dose: 600 mg Documented by: Ropinirole HCl (Ropinirole Hcl 0.5 Mg Tablet) 0.5 mg PO 0800 [facility] Last Admin: 10/15/21 10:51 Dose: 0.5 mg Documented by: Ropinirole HCl (Ropinirole Hcl 1 Mg Tablet) 2 mg PO DAILY@1900 [facility] Last Admin: 10/14/21 18:14 Dose: 2 mg Documented by: Senna/Docusate Sodium (Sennosides/Docusate Sodium Tablet) 1 tab PO BID [facility] Last Admin: 10/15/21 10:50 Dose: 1 tab Documented by: Simethicone (Simethicone 80 Mg Tab.Chew) 80 mg PO QIDWMHS PRN PRN Reason: indigestion Sodium Chloride (Sodium Chloride 0.65 % Nasal 44 Ml Sprbtl) 1 spray NOSTRIL-B Q1H PRN PRN Reason: congestion Last Admin: 10/09/21 09:26 Dose: 1 spray Documented by: Trolamine Salicylate/Aloe Vera (Trolamine Salicylate 10%/Aloe Cream 35.4 Gm) 1 appl TOPICAL TID PRN PRN Reason: sciatica Last Admin: 09/03/21 05:27 Dose: 1 appl Documented by: Vitamin D (Cholecalciferol (Vitamin D3) 10 Mcg Tablet) 10 mcg PO DAILY [facility] Last Admin: 10/15/21 10:50 Dose: 10 mcg Documented by: Allergies Allergies Allergy/AdvReac Type Severity Reaction Status Date / Time aripiprazole [From Abilify] Allergy Unknown Involuntary Verified 08/19/21 07:20 Spasms chlorpromazine Allergy Unknown Nausea and Verified 08/19/21 07:20 [From Thorazine] Vomiting haloperidol [From Haldol] Allergy Unknown Involuntary Verified 08/19/21 07:20 Spasms olanzapine [From Zyprexa] Allergy Unknown Involuntary Verified 08/19/21 07:20 Spasms paliperidone [From Invega] Allergy Unknown Hallucinati Verified 08/19/21 07:20 ons risperidone Allergy Unknown Involuntary Verified 08/19/21 07:20 Spasms Assessment & Plan Assessment & Plan (1) Schizoaffective disorder, bipolar type: Status: Acute Code(s): F25.0 - Schizoaffective disorder, bipolar type Assessment and Plan: Continue current plan (2) Lumbar radiculopathy: Status: Acute Code(s): M54.16 - Radiculopathy, lumbar region (3) Hip pain, left: Status: Acute Code(s): M25.552 - Pain in left hip Plan 09/20/21- Improving. Transition planning with [facility]. Pt is looking at discharge to a rest home and transitioning to [facility] services in [facility]. No medication changes today. 09/21: stable on current medications. on seroquel and lithium, c/o of hip pain on ibuprofen with partial response. no behavioral concerns. no overt delusional content nor psychosis noted. 09/22/21: Continue plan of care. 09/23/21: Ortho consult-Left hip pain Pt has requested a flu shot. Discharge planning-pt considering a rest home as a temporary placement. 09/24 continue per primary treatment team. 09/25: no med changes, pt is sig less manic 09/27/21: Continue plan of care. Transitioning from [facility] to local office. 09/28/21: Continue plan of care. Support in transition and discharge planning. Refusal of [place] discussed with Blanca. Discussed other options- she will consider. 10/01/21: Continue plan of care. Fe, TIBC, ESR, CRP, RF, Vit D, CCP 10/03/21: Discontinue clonidine, mirtazapine Change diclofenic to 50 mg tid 10/06/21 Continue current regime 10/07/21 Colace 100 mg bid, high fiber diet 10/10/2021 continue current plan discharge planning 10/11/2021: Continue current regimen and plans 10/12/21: Reports leg stiffness-?EPS-Benztropine 1 mg bid to begin 10/13. Vitamin D3 10 mcg daily 10/14/21: Continue current regime-await a response from a local [facility] home regarding placement. 10/15/21: Latuda 20 mg HS. Discontinue Colace I spent minutes with the patient and/or on the patient floor today, greater than?50% of which was spent counseling/coordinating care. Patient educated on: medication risk/benefits Informed Consent: understands Reason for contiued inpatient stay Substantial Risk for: inability to function and rapid decompensation
[2021-10-15] MEDS: rOPINIRole HCL 1 MG TABLET 2 MG PO (21:23)
[2021-10-15] MEDS: LORazepam 1 MG TABLET PO (21:23)
[2021-10-15] MEDS: QUEtiapine Fumarate 300 MG TABLET 600 MG PO (21:23)
[2021-10-15] MEDS: Melatonin 3 MG TABLET 9 MG PO (21:24)
[2021-10-15] MEDS: Artificial Tears 15 ML DROPS 2 DROP EYE-BOTH (22:14)
[2021-10-16 08:51] VITALS: BP 134/100; PULSE 76; TEMP 36.3
[2021-10-16] MEDS: Gabapentin 400 MG CAPSULE 800 MG PO ×3 (09:17→21:01)
[2021-10-16] MEDS: QUEtiapine Fumarate 100 MG TABLET PO (09:17)
[2021-10-16] MEDS: amLODIPine Besylate 2.5 MG TABLET PO (09:17)
[2021-10-16] MEDS: Cholecalciferol (Vitamin D3) 10 MCG TABLET PO (09:17)
[2021-10-16] MEDS: Multivitamin TABLET 1 TAB PO (09:17)
[2021-10-16] MEDS: rOPINIRole HCL 0.5 MG TABLET PO (09:17)
[2021-10-16] MEDS: Lithium Carbonate 300 MG TABLET PO ×2 (09:18→21:01)
[2021-10-16] MEDS: Sennosides/Docusate Sodium TABLET 1 TAB PO ×2 (09:18→21:01)
[2021-10-16] MEDS: Diclofenac Sodium Delayed Rel 50 MG TABLET.DR PO ×3 (09:18→19:50)
[2021-10-16] MEDS: Cyanocobalamin (Vitamin B-12) 100 MCG TABLET PO (09:18)
[2021-10-16] MEDS: Sodium Chloride 0.65 % Nasal 44 ML SPRBTL 1 SPRAY NOSTRIL-B (09:19)
[2021-10-16] MEDS: Mineral Oil/Petrolatum,White 106 GM Tube 1 APPL TOPICAL (09:20)
[2021-10-16] MEDS: Nicotine 14 MG PATCH.TD24 TRANSDERMA (09:20)
[2021-10-16] MEDS: Nicotine Polacrilex 2 MG GUM 4 MG BUCCAL ×2 (09:31→19:45)
--- NOTE | 2021-10-16 11:41 | HO.PSYCHPN ---
Subjective Subjective Date of Service: 10/16/21 Reason For Visit: Bipolar, Schizoaffective Subjective Notes: Conditional Voluntary Medical Problems Affecting Mental Status: No Interim History: Patient was seen and discussed in rounds today. She states that she is doing better but continues to feel depressed and has chronic pain and was wondering about starting Cymbalta. In the past she has been on Effexor which has been helpful to her. She has been started on Latuda however she decided not to start taking it and has been refused because of some concerns about weight gain and having to do blood tests which I told her she did not need to do however she would like to do the Cymbalta in place of that. I did not discontinue the Latuda up but did initiate Cymbalta 30 mg daily. Side effects reviewed. She is mostly isolative. No other changes were made Medication Compliance: Yes Side effects from medications: No Review of Systems Review of Systems Depression/anxiety Yes all other systems are reviewed and are negative Mental Status Exam Mental Status Exam Narrative: In today's visit she is alert, oriented and pleasant. Normal speech. Good eye contact. Affect is appropriate and varied. No acute signs observed. No signs of psychosis. No delusions. Cognitively intact. Judgment is intact Diagnostics Vital Signs (24Hr): Vital Signs - 24 hr 10/16/21 08:51 Temperature 97.3 F Pulse Rate 76 Blood Pressure 134/100 H BMI result Body Mass Index 32.8 Labs Results: 10/07/21 08:06 Imaging Radiology Impressions: ITS Impressions Abdomen Ultrasound 09/01/21 08:59 IMPRESSION: Slightly echogenic liver. Limited evaluation of the gallbladder as the patient has recently eaten. No gallstone seen. Limited visualization of the pancreas. Hip X-Ray 09/16/21 14:47 IMPRESSION: Moderate to severe left hip arthritis. Medications Medications Current Medications Acetaminophen (Acetaminophen 325 Mg Tablet) 975 mg PO Q6H PRN PRN Reason: Headache/Pain Mild Scale (1-3) Last Admin: 10/14/21 18:18 Dose: 975 mg Documented by: Al Hydroxide/Mg Hydroxide (Magnesium Hydrox/Alum Hydrox 30 Ml Oral.Susp) 30 ml PO Q6H PRN PRN Reason: Heartburn/Nausea Last Admin: 08/22/21 05:54 Dose: 30 ml Documented by: Amlodipine Besylate (Amlodipine Besylate 2.5 Mg Tablet) 2.5 mg PO DAILY YAYA; Protocol Last Admin: 10/16/21 09:17 Dose: 2.5 mg Documented by: Artificial Tears (Artificial Tears 15 Ml Drops) 2 drop EYE-BOTH Q4H PRN PRN Reason: Dry Eyes Last Admin: 10/15/21 22:14 Dose: 2 drop Documented by: Aspirin (Aspirin Enteric Coated 325 Mg Tablet.) 650 mg PO DAILY PRN PRN Reason: headache Last Admin: 09/06/21 12:18 Dose: 650 mg Documented by: Benzocaine (Benzocaine 20 % Oral Gel 9 Gm Tube) 1 appl MUCOUS MEM QID PRN; Protocol PRN Reason: Mouth Sore Pain Last Admin: 08/31/21 03:05 Dose: 1 appl Documented by: Calcium Carbonate (Calcium Carbonate 500 Mg Tablet) 500 mg PO DAILY [facility] Last Admin: 10/16/21 09:17 Dose: 500 mg Documented by: [place] Butter/Zinc Oxide ([place] Butter/Zinc Oxide Supp.Rect) 1 supp AL BEDTIME PRN PRN Reason: hemorrhoid pain Last Admin: 09/13/21 21:15 Dose: 1 supp Documented by: Cyanocobalamin (Cyanocobalamin (Vitamin B-12) 100 Mcg Tablet) 100 mcg PO DAILY [facility] Last Admin: 10/16/21 09:18 Dose: 100 mcg Documented by: Diclofenac Sodium (Diclofenac Sodium Delayed Rel 50 Mg Tablet.) 50 mg PO TID [facility] Last Admin: 10/16/21 09:18 Dose: 50 mg Documented by: Diphenhydramine HCl (Diphenhydramine Hcl 25 Mg Tablet) 50 mg PO Q6H PRN PRN Reason: eps Last Admin: 09/22/21 23:48 Dose: 50 mg Documented by: Gabapentin (Gabapentin 400 Mg Capsule) 800 mg PO TID [facility] Last Admin: 10/16/21 09:17 Dose: 800 mg Documented by: Gabapentin (Gabapentin 100 Mg Capsule) 100 mg PO TID PRN PRN Reason: neuropathic pain Last Admin: 09/26/21 17:14 Dose: 100 mg Documented by: Hydroxyzine HCl (Hydroxyzine Hcl 25 Mg Tablet) 25 mg PO BEDTIME PRN PRN Reason: Anxiety Last Admin: 09/22/21 23:48 Dose: 25 mg Documented by: Hydroxyzine HCl (Hydroxyzine Hcl 25 Mg Tablet) 25 mg PO BEDTIME [facility] Last Admin: 10/15/21 22:07 Dose: Not Given Documented by: Lidocaine (Lidocaine 4 % Patch Adh..Patch) 1 patch TRANSDERMA DAILY [facility]; Protocol Last Admin: 10/16/21 10:35 Dose: Not Given Documented by: Lidocaine (Lidocaine 4 % Patch Adh..Patch) 1 patch TRANSDERMA DAILY [facility]; Protocol Last Admin: 10/16/21 10:36 Dose: Not Given Documented by: [place] Carbonate ([place] Carbonate 300 Mg Tablet) 300 mg PO BID [facility] Last Admin: 10/16/21 09:18 Dose: 300 mg Documented by: Lorazepam (Lorazepam 1 Mg Tablet) 1 mg PO Q8H PRN PRN Reason: agitation, anxiety Last Admin: 10/15/21 21:23 Dose: 1 mg Documented by: Lurasidone HCl (Lurasidone Hcl 20 Mg Tablet) 20 mg PO BEDTIME [facility] Last Admin: 10/15/21 21:53 Dose: Not Given Documented by: Magnesium Citrate (Magnesium Citrate 300 Ml Solution) 300 ml PO DAILY PRN PRN Reason: Constipation Last Admin: 10/10/21 13:37 Dose: 300 ml Documented by: Magnesium Hydroxide (Milk Of Magnesia 30 Ml Oral.Susp) 30 ml PO DAILY PRN PRN Reason: Constipation Last Admin: 08/31/21 20:05 Dose: 30 ml Documented by: Melatonin (Melatonin 3 Mg Tablet) 9 mg PO BEDTIME [facility] Last Admin: 10/15/21 21:24 Dose: 9 mg Documented by: Multi-Ingred Cream/Lotion/Oil/Oint (Mineral Oil/Petrolatum,White 106 Gm Tube) 1 appl TOPICAL BID [facility]; Protocol Last Admin: 10/16/21 09:20 Dose: 1 appl Documented by: Multivitamins/Vitamin C (Multivitamin Tablet) 1 tab PO DAILY [facility] Last Admin: 10/16/21 09:17 Dose: 1 tab Documented by: Nicotine (Nicotine 14 Mg Patch.Td24) 14 mg TRANSDERMA DAILY [facility] Last Admin: 10/16/21 09:20 Dose: 14 mg Documented by: Nicotine Polacrilex (Nicotine Polacrilex 2 Mg Gum) 4 mg BUCCAL Q1H PRN PRN Reason: Nicotine Cravings Last Admin: 10/16/21 09:31 Dose: 4 mg Documented by: Patient Own Medication (Dry Eye Relief) 1 each EYE-BOTH QID [facility] Last Admin: 10/16/21 10:36 Dose: Not Given Documented by: Psyllium Hydrophilic Mucilloid (Psyllium Seed 3.4 Gm Powd.Pack) 3.4 gm PO DAILY [facility] Last Admin: 10/16/21 09:19 Dose: 3.4 gm Documented by: Quetiapine Fumarate (Quetiapine Fumarate 200 Mg Tablet) 200 mg PO Q6H PRN PRN Reason: anxiety/restlessness Last Admin: 09/21/21 02:38 Dose: 200 mg Documented by: Quetiapine Fumarate (Quetiapine Fumarate 100 Mg Tablet) 100 mg PO DAILY [facility] Last Admin: 10/16/21 09:17 Dose: 100 mg Documented by: Quetiapine Fumarate (Quetiapine Fumarate 300 Mg Tablet) 600 mg PO BEDTIME [facility] Last Admin: 10/15/21 21:23 Dose: 600 mg Documented by: Ropinirole HCl (Ropinirole Hcl 0.5 Mg Tablet) 0.5 mg PO 0800 [facility] Last Admin: 10/16/21 09:17 Dose: 0.5 mg Documented by: Ropinirole HCl (Ropinirole Hcl 1 Mg Tablet) 2 mg PO DAILY@1900 [facility] Last Admin: 10/15/21 21:23 Dose: 2 mg Documented by: Senna/Docusate Sodium (Sennosides/Docusate Sodium Tablet) 1 tab PO BID [facility] Last Admin: 10/16/21 09:18 Dose: 1 tab Documented by: Simethicone (Simethicone 80 Mg Tab.Chew) 80 mg PO QIDWMHS PRN PRN Reason: indigestion Sodium Chloride (Sodium Chloride 0.65 % Nasal 44 Ml Sprbtl) 1 spray NOSTRIL-B Q1H PRN PRN Reason: congestion Last Admin: 10/16/21 09:19 Dose: 1 spray Documented by: Trolamine Salicylate/Aloe Vera (Trolamine Salicylate 10%/Aloe Cream 35.4 Gm) 1 appl TOPICAL TID PRN PRN Reason: sciatica Last Admin: 09/03/21 05:27 Dose: 1 appl Documented by: Vitamin D (Cholecalciferol (Vitamin D3) 10 Mcg Tablet) 10 mcg PO DAILY [facility] Last Admin: 10/16/21 09:17 Dose: 10 mcg Documented by: Allergies Allergies Allergy/AdvReac Type Severity Reaction Status Date / Time aripiprazole [From Abilify] Allergy Unknown Involuntary Verified 08/19/21 07:20 Spasms chlorpromazine Allergy Unknown Nausea and Verified 08/19/21 07:20 [From Thorazine] Vomiting haloperidol [From Haldol] Allergy Unknown Involuntary Verified 08/19/21 07:20 Spasms olanzapine [From Zyprexa] Allergy Unknown Involuntary Verified 08/19/21 07:20 Spasms paliperidone [From Invega] Allergy Unknown Hallucinati Verified 08/19/21 07:20 ons risperidone Allergy Unknown Involuntary Verified 08/19/21 07:20 Spasms Assessment & Plan Assessment & Plan (1) Schizoaffective disorder, bipolar type: Status: Acute Code(s): F25.0 - Schizoaffective disorder, bipolar type Assessment and Plan: Continue current plan (2) Lumbar radiculopathy: Status: Acute Code(s): M54.16 - Radiculopathy, lumbar region (3) Hip pain, left: Status: Acute Code(s): M25.552 - Pain in left hip Plan 09/20/21- Improving. Transition planning with [facility]. Pt is looking at discharge to a rest home and transitioning to [facility] services in [facility]. No medication changes today. 09/21: stable on current medications. on seroquel and lithium, c/o of hip pain on ibuprofen with partial response. no behavioral concerns. no overt delusional content nor psychosis noted. 09/22/21: Continue plan of care. 09/23/21: Ortho consult-Left hip pain Pt has requested a flu shot. Discharge planning-pt considering a rest home as a temporary placement. 09/24 continue per primary treatment team. 09/25: no med changes, pt is sig less manic 09/27/21: Continue plan of care. Transitioning from [facility] to local office. 09/28/21: Continue plan of care. Support in transition and discharge planning. Refusal of Genola discussed with Blanca. Discussed other options-she will consider. 10/01/21: Continue plan of care. Fe, TIBC, ESR, CRP, RF, Vit D, CCP 10/03/21: Discontinue clonidine, mirtazapine Change diclofenic to 50 mg tid 10/06/21 Continue current regime 10/07/21 Colace 100 mg bid, high fiber diet 10/10/2021 continue current plan discharge planning 10/11/2021: Continue current regimen and plans 10/12/21: Reports leg stiffness-?EPS-Benztropine 1 mg bid to begin 10/13. Vitamin D3 10 mcg daily 10/14/21: Continue current regime-await a response from a local rest home regarding placement. 10/15/21: Latuda 20 mg HS. Discontinue Colace 10/16: Continue current regimen and plans with addition of Cymbalta 30 mg and she has been refusing Latuda 20 mg I spent minutes with the patient and/or on the patient floor today, greater than?50% of which was spent counseling/coordinating care. Patient educated on: medication risk/benefits Reason for contiued inpatient stay Substantial Risk for: med/psych decompensation
[2021-10-16] MEDS: DULoxetine HCl 30 MG CAPSULE.DR PO (14:04)
[2021-10-16] MEDS: Magnesium Citrate 300 ML SOLUTION PO (17:07)
[2021-10-16] MEDS: LORazepam 1 MG TABLET PO (17:12)
[2021-10-16 18:00] VITALS: BP 132/94; PULSE 74; TEMP 36.3; O2SAT 96
[2021-10-16] MEDS: rOPINIRole HCL 1 MG TABLET 2 MG PO (19:40)
[2021-10-16] MEDS: Melatonin 3 MG TABLET 9 MG PO (21:01)
[2021-10-16] MEDS: QUEtiapine Fumarate 300 MG TABLET 600 MG PO (21:01)
[2021-10-16] MEDS: Lurasidone HCl 20 MG TABLET PO (21:01)
[2021-10-16] MEDS: hydrOXYzine HCL 25 MG TABLET PO (21:02)
[2021-10-17 08:50] VITALS: BP 99/60; PULSE 71; TEMP 36.4
[2021-10-17] MEDS: Cholecalciferol (Vitamin D3) 10 MCG TABLET PO (09:38)
[2021-10-17] MEDS: QUEtiapine Fumarate 100 MG TABLET PO (09:38)
[2021-10-17] MEDS: Multivitamin TABLET 1 TAB PO (09:38)
[2021-10-17] MEDS: Diclofenac Sodium Delayed Rel 50 MG TABLET.DR PO ×3 (09:38→21:38)
[2021-10-17] MEDS: Sennosides/Docusate Sodium TABLET 1 TAB PO ×2 (09:38→21:37)
[2021-10-17] MEDS: Lithium Carbonate 300 MG TABLET PO ×2 (09:39→21:39)
[2021-10-17] MEDS: amLODIPine Besylate 2.5 MG TABLET PO (09:39)
[2021-10-17] MEDS: rOPINIRole HCL 0.5 MG TABLET PO (09:40)
[2021-10-17] MEDS: Cyanocobalamin (Vitamin B-12) 100 MCG TABLET PO (09:40)
[2021-10-17] MEDS: Gabapentin 400 MG CAPSULE 800 MG PO ×3 (09:40→21:38)
[2021-10-17] MEDS: DULoxetine HCl 30 MG CAPSULE.DR PO (09:40)
[2021-10-17] MEDS: Sodium Chloride 0.65 % Nasal 44 ML SPRBTL 1 SPRAY NOSTRIL-B (09:42)
[2021-10-17] MEDS: Mineral Oil/Petrolatum,White 106 GM Tube 1 APPL TOPICAL (09:43)
[2021-10-17] MEDS: Nicotine Polacrilex 2 MG GUM 4 MG BUCCAL ×2 (09:46→14:43)
[2021-10-17] MEDS: Nicotine 14 MG PATCH.TD24 TRANSDERMA (09:48)
--- NOTE | 2021-10-17 10:47 | P.PNPSI_ITS ---
Subjective Subjective Date of Service: 10/17/21 Reason For Visit: Bipolar, Schizoaffective Subjective Notes: Conditional Voluntary Medical Problems Affecting Mental Status: No Interim History: Patient was seen and discussed in rounds today. She continues to feel depressed with some irritability. She did take the Cymbalta for the 1st time yesterday and denies any side effects. She would like to have the Latuda 20 mg discontinued so that there will be any confusion. Questions about Cymbalta discussed. No changes were made today. Eating and sleeping adequately. Medication Compliance: Yes Side effects from medications: No Review of Systems Review of Systems Depression/anxiety Yes all other systems are reviewed and are negative Diagnostics Vital Signs (24Hr): Vital Signs - 24 hr 10/16/21 18:00 Temperature 97.4 F Pulse Rate 74 Blood Pressure 132/94 H Pulse Oximetry 96 BMI result Body Mass Index 32.8 Labs Results: 10/07/21 08:06 Imaging Radiology Impressions: ITS Impressions Abdomen Ultrasound 09/01/21 08:59 IMPRESSION: Slightly echogenic liver. Limited evaluation of the gallbladder as the patient has recently eaten. No gallstone seen. Limited visualization of the pancreas. Hip X-Ray 09/16/21 14:47 IMPRESSION: Moderate to severe left hip arthritis. Medications Medications Current Medications Acetaminophen (Acetaminophen 325 Mg Tablet) 975 mg PO Q6H PRN PRN Reason: Headache/Pain Mild Scale (1-3) Last Admin: 10/14/21 18:18 Dose: 975 mg Documented by: Al Hydroxide/Mg Hydroxide (Magnesium Hydrox/Alum Hydrox 30 Ml Oral.Susp) 30 ml PO Q6H PRN PRN Reason: Heartburn/Nausea Last Admin: 08/22/21 05:54 Dose: 30 ml Documented by: Amlodipine Besylate (Amlodipine Besylate 2.5 Mg Tablet) 2.5 mg PO DAILY [facility]; Protocol Last Admin: 10/17/21 09:39 Dose: 2.5 mg Documented by: Artificial Tears (Artificial Tears 15 Ml Drops) 2 drop EYE-BOTH Q4H PRN PRN Reason: Dry Eyes Last Admin: 10/15/21 22:14 Dose: 2 drop Documented by: Aspirin (Aspirin Enteric Coated 325 Mg Tablet.) 650 mg PO DAILY PRN PRN Reason: headache Last Admin: 09/06/21 12:18 Dose: 650 mg Documented by: Benzocaine (Benzocaine 20 % Oral Gel 9 Gm Tube) 1 appl MUCOUS MEM QID PRN; Protocol PRN Reason: Mouth Sore Pain Last Admin: 08/31/21 03:05 Dose: 1 appl Documented by: Calcium Carbonate (Calcium Carbonate 500 Mg Tablet) 500 mg PO DAILY [facility] Last Admin: 10/17/21 09:39 Dose: 500 mg Documented by: [place] Butter/Zinc Oxide ([place] Butter/Zinc Oxide Supp.Rect) 1 supp ND BEDTIME PRN PRN Reason: hemorrhoid pain Last Admin: 09/13/21 21:15 Dose: 1 supp Documented by: Cyanocobalamin (Cyanocobalamin (Vitamin B-12) 100 Mcg Tablet) 100 mcg PO DAILY [facility] Last Admin: 10/17/21 09:40 Dose: 100 mcg Documented by: Diclofenac Sodium (Diclofenac Sodium Delayed Rel 50 Mg Tablet.) 50 mg PO TID [facility] Last Admin: 10/17/21 09:38 Dose: 50 mg Documented by: Diphenhydramine HCl (Diphenhydramine Hcl 25 Mg Tablet) 50 mg PO Q6H PRN PRN Reason: eps Last Admin: 09/22/21 23:48 Dose: 50 mg Documented by: Duloxetine HCl (Duloxetine Hcl 30 Mg Capsule.) 30 mg PO DAILY [facility] Last Admin: 10/17/21 09:40 Dose: 30 mg Documented by: Gabapentin (Gabapentin 400 Mg Capsule) 800 mg PO TID [facility] Last Admin: 10/17/21 09:40 Dose: 800 mg Documented by: Gabapentin (Gabapentin 100 Mg Capsule) 100 mg PO TID PRN PRN Reason: neuropathic pain Last Admin: 09/26/21 17:14 Dose: 100 mg Documented by: Hydroxyzine HCl (Hydroxyzine Hcl 25 Mg Tablet) 25 mg PO BEDTIME PRN PRN Reason: Anxiety Last Admin: 09/22/21 23:48 Dose: 25 mg Documented by: Hydroxyzine HCl (Hydroxyzine Hcl 25 Mg Tablet) 25 mg PO BEDTIME [facility] Last Admin: 10/16/21 21:02 Dose: 25 mg Documented by: Lidocaine (Lidocaine 4 % Patch Adh..Patch) 1 patch TRANSDERMA DAILY [facility]; Protocol Last Admin: 10/17/21 10:32 Dose: Not Given Documented by: Lidocaine (Lidocaine 4 % Patch Adh..Patch) 1 patch TRANSDERMA DAILY [facility]; Protocol Last Admin: 10/17/21 10:32 Dose: Not Given Documented by: Preemption Carbonate (Preemption Carbonate 300 Mg Tablet) 300 mg PO BID [facility] Last Admin: 10/17/21 09:39 Dose: 300 mg Documented by: Lurasidone HCl (Lurasidone Hcl 20 Mg Tablet) 20 mg PO BEDTIME [facility] Last Admin: 10/16/21 21:01 Dose: 20 mg Documented by: Magnesium Citrate (Magnesium Citrate 300 Ml Solution) 300 ml PO DAILY PRN PRN Reason: Constipation Last Admin: 10/10/21 13:37 Dose: 300 ml Documented by: Magnesium Hydroxide (Milk Of Magnesia 30 Ml Oral.Susp) 30 ml PO DAILY PRN PRN Reason: Constipation Last Admin: 08/31/21 20:05 Dose: 30 ml Documented by: Melatonin (Melatonin 3 Mg Tablet) 9 mg PO BEDTIME [facility] Last Admin: 10/16/21 21:01 Dose: 9 mg Documented by: Multi-Ingred Cream/Lotion/Oil/Oint (Mineral Oil/Petrolatum,White 106 Gm Tube) 1 appl TOPICAL BID [facility]; Protocol Last Admin: 10/17/21 09:43 Dose: 1 appl Documented by: Multivitamins/Vitamin C (Multivitamin Tablet) 1 tab PO DAILY [facility] Last Admin: 10/17/21 09:38 Dose: 1 tab Documented by: Nicotine (Nicotine 14 Mg Patch.Td24) 14 mg TRANSDERMA DAILY [facility] Last Admin: 10/17/21 09:48 Dose: 14 mg Documented by: Nicotine Polacrilex (Nicotine Polacrilex 2 Mg Gum) 4 mg BUCCAL Q1H PRN PRN Reason: Nicotine Cravings Last Admin: 10/17/21 09:46 Dose: 4 mg Documented by: Patient Own Medication (Dry Eye Relief) 1 each EYE-BOTH QID [facility] Last Admin: 10/17/21 09:43 Dose: 1 each Documented by: Psyllium Hydrophilic Mucilloid (Psyllium Seed 3.4 Gm Powd.Pack) 3.4 gm PO DAILY [facility] Last Admin: 10/17/21 09:49 Dose: 3.4 gm Documented by: Quetiapine Fumarate (Quetiapine Fumarate 200 Mg Tablet) 200 mg PO Q6H PRN PRN Reason: anxiety/restlessness Last Admin: 09/21/21 02:38 Dose: 200 mg Documented by: Quetiapine Fumarate (Quetiapine Fumarate 100 Mg Tablet) 100 mg PO DAILY [facility] Last Admin: 10/17/21 09:38 Dose: 100 mg Documented by: Quetiapine Fumarate (Quetiapine Fumarate 300 Mg Tablet) 600 mg PO BEDTIME [facility] Last Admin: 10/16/21 21:01 Dose: 600 mg Documented by: Ropinirole HCl (Ropinirole Hcl 0.5 Mg Tablet) 0.5 mg PO 0800 [facility] Last Admin: 10/17/21 09:40 Dose: 0.5 mg Documented by: Ropinirole HCl (Ropinirole Hcl 1 Mg Tablet) 2 mg PO DAILY@1900 [facility] Last Admin: 10/16/21 19:40 Dose: 2 mg Documented by: Senna/Docusate Sodium (Sennosides/Docusate Sodium Tablet) 1 tab PO BID [facility] Last Admin: 10/17/21 09:38 Dose: 1 tab Documented by: Simethicone (Simethicone 80 Mg Tab.Chew) 80 mg PO QIDWMHS PRN PRN Reason: indigestion Sodium Chloride (Sodium Chloride 0.65 % Nasal 44 Ml Sprbtl) 1 spray NOSTRIL-B Q1H PRN PRN Reason: congestion Last Admin: 10/17/21 09:42 Dose: 1 spray Documented by: Trolamine Salicylate/Aloe Vera (Trolamine Salicylate 10%/Aloe Cream 35.4 Gm) 1 appl TOPICAL TID PRN PRN Reason: sciatica Last Admin: 09/03/21 05:27 Dose: 1 appl Documented by: Vitamin D (Cholecalciferol (Vitamin D3) 10 Mcg Tablet) 10 mcg PO DAILY [facility] Last Admin: 10/17/21 09:38 Dose: 10 mcg Documented by: Allergies Allergies Allergy/AdvReac Type Severity Reaction Status Date / Time aripiprazole [From Abilify] Allergy Unknown Involuntary Verified 08/19/21 07:20 Spasms chlorpromazine Allergy Unknown Nausea and Verified 08/19/21 07:20 [From Thorazine] Vomiting haloperidol [From Haldol] Allergy Unknown Involuntary Verified 08/19/21 07:20 Spasms olanzapine [From Zyprexa] Allergy Unknown Involuntary Verified 08/19/21 07:20 Spasms paliperidone [From Invega] Allergy Unknown Hallucinati Verified 08/19/21 07:20 ons risperidone Allergy Unknown Involuntary Verified 08/19/21 07:20 Spasms Assessment & Plan Assessment & Plan (1) Schizoaffective disorder, bipolar type: Status: Acute Code(s): F25.0 - Schizoaffective disorder, bipolar type Assessment and Plan: Continue current plan (2) Lumbar radiculopathy: Status: Acute Code(s): M54.16 - Radiculopathy, lumbar region (3) Hip pain, left: Status: Acute Code(s): M25.552 - Pain in left hip Plan 09/20/21- Improving. Transition planning with [facility]. Pt is looking at discharge to a rest home and transitioning to [facility] services in [facility]. No medication changes today. 09/21: stable on current medications. on seroquel and lithium, c/o of hip pain on ibuprofen with partial response. no behavioral concerns. no overt delusional content nor psychosis noted. 09/22/21: Continue plan of care. 09/23/21: Ortho consult-Left hip pain Pt has requested a flu shot. Discharge planning-pt considering a rest home as a temporary placement. 09/24 continue per primary treatment team. 09/25: no med changes, pt is sig less manic 09/27/21: Continue plan of care. Transitioning from [facility] of [facility] to local office. 09/28/21: Continue plan of care. Support in transition and discharge planning. Refusal of Preemption discussed with Blanca. Discussed other options- she will consider. 10/01/21: Continue plan of care. Fe, TIBC, ESR, CRP, RF, Vit D, CCP 10/03/21: Discontinue clonidine, mirtazapine Change diclofenic to 50 mg tid 10/06/21 Continue current regime 10/07/21 Colace 100 mg bid, high fiber diet 10/10/2021 continue current plan discharge planning 10/11/2021: Continue current regimen and plans 10/12/21: Reports leg stiffness-?EPS-Benztropine 1 mg bid to begin 10/13. Vitamin D3 10 mcg daily 10/14/21: Continue current regime-await a response from a local rest home regarding placement. 10/15/21: Latuda 20 mg HS. Discontinue Colace 10/16: Continue current regimen and plans with addition of Cymbalta 30 mg and she has been refusing Latuda 20 mg 10/17: Continue current regimen and plans and discontinue Latuda I spent minutes with the patient and/or on the patient floor today, greater than?50% of which was spent counseling/coordinating care. Patient educated on: medication risk/benefits Reason for contiued inpatient stay Substantial Risk for: other
--- NOTE | 2021-10-17 10:49 | P.PNPSI_ITS ---
Subjective Subjective Date of Service: 10/17/21 Reason For Visit: Bipolar, Schizoaffective Subjective Notes: Conditional Voluntary Medical Problems Affecting Mental Status: No Interim History: Patient was seen and discussed in rounds today. She did have a very hard times sleeping last night but and ventrally I ordered 5 mg of Ambien which was very helpful and with it she slept 5-6 hours. I will order that again tonight as a 1 time dose and she will discuss this with the staff tomorrow. She is also requesting for something during the day on a p.r.n. basis for anxiety agitation and states that Haldol has a very beneficial effect. I will order Medication Compliance: Yes Side effects from medications: Yes (Paradoxical reaction to trazodone) Review of Systems Review of Systems Depression/anxiety Yes all other systems are reviewed and are negative Diagnostics Vital Signs (24Hr): Vital Signs - 24 hr 10/16/21 18:00 Temperature 97.4 F Pulse Rate 74 Blood Pressure 132/94 H Pulse Oximetry 96 BMI result Body Mass Index 32.8 Labs Results: 10/07/21 08:06 Imaging Radiology Impressions: ITS Impressions Abdomen Ultrasound 09/01/21 08:59 IMPRESSION: Slightly echogenic liver. Limited evaluation of the gallbladder as the patient has recently eaten. No gallstone seen. Limited visualization of the pancreas. Hip X-Ray 09/16/21 14:47 IMPRESSION: Moderate to severe left hip arthritis. Medications Medications Current Medications Acetaminophen (Acetaminophen 325 Mg Tablet) 975 mg PO Q6H PRN PRN Reason: Headache/Pain Mild Scale (1-3) Last Admin: 10/14/21 18:18 Dose: 975 mg Documented by: Al Hydroxide/Mg Hydroxide (Magnesium Hydrox/Alum Hydrox 30 Ml Oral.Susp) 30 ml PO Q6H PRN PRN Reason: Heartburn/Nausea Last Admin: 08/22/21 05:54 Dose: 30 ml Documented by: Amlodipine Besylate (Amlodipine Besylate 2.5 Mg Tablet) 2.5 mg PO DAILY YAYA; Protocol Last Admin: 10/17/21 09:39 Dose: 2.5 mg Documented by: Artificial Tears (Artificial Tears 15 Ml Drops) 2 drop EYE-BOTH Q4H PRN PRN Reason: Dry Eyes Last Admin: 10/15/21 22:14 Dose: 2 drop Documented by: Aspirin (Aspirin Enteric Coated 325 Mg Tablet.) 650 mg PO DAILY PRN PRN Reason: headache Last Admin: 09/06/21 12:18 Dose: 650 mg Documented by: Benzocaine (Benzocaine 20 % Oral Gel 9 Gm Tube) 1 appl MUCOUS MEM QID PRN; Protocol PRN Reason: Mouth Sore Pain Last Admin: 08/31/21 03:05 Dose: 1 appl Documented by: Calcium Carbonate (Calcium Carbonate 500 Mg Tablet) 500 mg PO DAILY [facility] Last Admin: 10/17/21 09:39 Dose: 500 mg Documented by: [place] Butter/Zinc Oxide ([place] Butter/Zinc Oxide Supp.Rect) 1 supp [place] BEDTIME PRN PRN Reason: hemorrhoid pain Last Admin: 09/13/21 21:15 Dose: 1 supp Documented by: Cyanocobalamin (Cyanocobalamin (Vitamin B-12) 100 Mcg Tablet) 100 mcg PO DAILY [facility] Last Admin: 10/17/21 09:40 Dose: 100 mcg Documented by: Diclofenac Sodium (Diclofenac Sodium Delayed Rel 50 Mg Tablet.) 50 mg PO TID [facility], [facility] Last Admin: 10/17/21 09:38 Dose: 50 mg Documented by: Diphenhydramine HCl (Diphenhydramine Hcl 25 Mg Tablet) 50 mg PO Q6H PRN PRN Reason: eps Last Admin: 09/22/21 23:48 Dose: 50 mg Documented by: Duloxetine HCl (Duloxetine Hcl 30 Mg Capsule.) 30 mg PO DAILY [facility] Last Admin: 10/17/21 09:40 Dose: 30 mg Documented by: Gabapentin (Gabapentin 400 Mg Capsule) 800 mg PO TID [facility] Last Admin: 10/17/21 09:40 Dose: 800 mg Documented by: Gabapentin (Gabapentin 100 Mg Capsule) 100 mg PO TID PRN PRN Reason: neuropathic pain Last Admin: 09/26/21 17:14 Dose: 100 mg Documented by: Hydroxyzine HCl (Hydroxyzine Hcl 25 Mg Tablet) 25 mg PO BEDTIME PRN PRN Reason: Anxiety Last Admin: 09/22/21 23:48 Dose: 25 mg Documented by: Hydroxyzine HCl (Hydroxyzine Hcl 25 Mg Tablet) 25 mg PO BEDTIME [facility] Last Admin: 10/16/21 21:02 Dose: 25 mg Documented by: Lidocaine (Lidocaine 4 % Patch Adh..Patch) 1 patch TRANSDERMA DAILY [facility], [facility]; Protocol Last Admin: 10/17/21 10:32 Dose: Not Given Documented by: Lidocaine (Lidocaine 4 % Patch Adh..Patch) 1 patch TRANSDERMA DAILY [facility], [facility]; Protocol Last Admin: 10/17/21 10:32 Dose: Not Given Documented by: [place] Carbonate ([place] Carbonate 300 Mg Tablet) 300 mg PO BID [facility] Last Admin: 10/17/21 09:39 Dose: 300 mg Documented by: Magnesium Citrate (Magnesium Citrate 300 Ml Solution) 300 ml PO DAILY PRN PRN Reason: Constipation Last Admin: 10/10/21 13:37 Dose: 300 ml Documented by: Magnesium Hydroxide (Milk Of Magnesia 30 Ml Oral.Susp) 30 ml PO DAILY PRN PRN Reason: Constipation Last Admin: 08/31/21 20:05 Dose: 30 ml Documented by: Melatonin (Melatonin 3 Mg Tablet) 9 mg PO BEDTIME [facility] Last Admin: 10/16/21 21:01 Dose: 9 mg Documented by: Multi-Ingred Cream/Lotion/Oil/Oint (Mineral Oil/Petrolatum,White 106 Gm Tube) 1 appl TOPICAL BID [facility], [facility]; Protocol Last Admin: 10/17/21 09:43 Dose: 1 appl Documented by: Multivitamins/Vitamin C (Multivitamin Tablet) 1 tab PO DAILY [facility] Last Admin: 10/17/21 09:38 Dose: 1 tab Documented by: Nicotine (Nicotine 14 Mg Patch.Td24) 14 mg TRANSDERMA DAILY [facility] Last Admin: 10/17/21 09:48 Dose: 14 mg Documented by: Nicotine Polacrilex (Nicotine Polacrilex 2 Mg Gum) 4 mg BUCCAL Q1H PRN PRN Reason: Nicotine Cravings Last Admin: 10/17/21 09:46 Dose: 4 mg Documented by: Patient Own Medication (Dry Eye Relief) 1 each EYE-BOTH QID [facility], [facility] Last Admin: 10/17/21 09:43 Dose: 1 each Documented by: Psyllium Hydrophilic Mucilloid (Psyllium Seed 3.4 Gm Powd.Pack) 3.4 gm PO DAILY [facility] Last Admin: 10/17/21 09:49 Dose: 3.4 gm Documented by: Quetiapine Fumarate (Quetiapine Fumarate 200 Mg Tablet) 200 mg PO Q6H PRN PRN Reason: anxiety/restlessness Last Admin: 09/21/21 02:38 Dose: 200 mg Documented by: Quetiapine Fumarate (Quetiapine Fumarate 100 Mg Tablet) 100 mg PO DAILY [facility] Last Admin: 10/17/21 09:38 Dose: 100 mg Documented by: Quetiapine Fumarate (Quetiapine Fumarate 300 Mg Tablet) 600 mg PO BEDTIME [facility] Last Admin: 10/16/21 21:01 Dose: 600 mg Documented by: Ropinirole HCl (Ropinirole Hcl 0.5 Mg Tablet) 0.5 mg PO 0800 [facility] Last Admin: 10/17/21 09:40 Dose: 0.5 mg Documented by: Ropinirole HCl (Ropinirole Hcl 1 Mg Tablet) 2 mg PO DAILY@1900 [facility] Last Admin: 10/16/21 19:40 Dose: 2 mg Documented by: Senna/Docusate Sodium (Sennosides/Docusate Sodium Tablet) 1 tab PO BID [facility] Last Admin: 10/17/21 09:38 Dose: 1 tab Documented by: Simethicone (Simethicone 80 Mg Tab.Chew) 80 mg PO QIDWMHS PRN PRN Reason: indigestion Sodium Chloride (Sodium Chloride 0.65 % Nasal 44 Ml Sprbtl) 1 spray NOSTRIL-B Q1H PRN PRN Reason: congestion Last Admin: 10/17/21 09:42 Dose: 1 spray Documented by: Trolamine Salicylate/Aloe Vera (Trolamine Salicylate 10%/Aloe Cream 35.4 Gm) 1 appl TOPICAL TID PRN PRN Reason: sciatica Last Admin: 09/03/21 05:27 Dose: 1 appl Documented by: Vitamin D (Cholecalciferol (Vitamin D3) 10 Mcg Tablet) 10 mcg PO DAILY [facility] Last Admin: 10/17/21 09:38 Dose: 10 mcg Documented by: Allergies Allergies Allergy/AdvReac Type Severity Reaction Status Date / Time aripiprazole [From Abilify] Allergy Unknown Involuntary Verified 08/19/21 07:20 Spasms chlorpromazine Allergy Unknown Nausea and Verified 08/19/21 07:20 [From Thorazine] Vomiting haloperidol [From Haldol] Allergy Unknown Involuntary Verified 08/19/21 07:20 Spasms olanzapine [From Zyprexa] Allergy Unknown Involuntary Verified 08/19/21 07:20 Spasms paliperidone [From Invega] Allergy Unknown Hallucinati Verified 08/19/21 07:20 ons risperidone Allergy Unknown Involuntary Verified 08/19/21 07:20 Spasms Assessment & Plan Assessment & Plan (1) Schizoaffective disorder, bipolar type: Status: Acute Code(s): F25.0 - Schizoaffective disorder, bipolar type Assessment and Plan: Continue current plan (2) Lumbar radiculopathy: Status: Acute Code(s): M54.16 - Radiculopathy, lumbar region (3) Hip pain, left: Status: Acute Code(s): M25.552 - Pain in left hip Plan 09/20/21- Improving. Transition planning with [facility]. Pt is looking at discharge to a rest home and transitioning to [facility] services in [facility]. No medication changes today. 09/21: stable on current medications. on seroquel and lithium, c/o of hip pain on ibuprofen with partial response. no behavioral concerns. no overt delusional content nor psychosis noted. 09/22/21: Continue plan of care. 09/23/21: Ortho consult-Left hip pain Pt has requested a flu shot. Discharge planning-pt considering a rest home as a temporary placement. 09/24 continue per primary treatment team. 09/25: no med changes, pt is sig less manic 09/27/21: Continue plan of care. Transitioning from [facility] to local office. 09/28/21: Continue plan of care. Support in transition and discharge planning. Refusal of [place] discussed with Blanca. Discussed other options- she will consider. 10/01/21: Continue plan of care. Fe, TIBC, ESR, CRP, RF, Vit D, CCP 10/03/21: Discontinue clonidine, mirtazapine Change diclofenic to 50 mg tid 10/06/21 Continue current regime 10/07/21 Colace 100 mg bid, high fiber diet 10/10/2021 continue current plan discharge planning 10/11/2021: Continue current regimen and plans 10/12/21: Reports leg stiffness-?EPS-Benztropine 1 mg bid to begin 10/13. Vitamin D3 10 mcg daily 10/14/21: Continue current regime-await a response from a local rest home regarding placement. 10/15/21: Latuda 20 mg HS. Discontinue Colace 10/16: Continue current regimen and plans with addition of Cymbalta 30 mg and she has been refusing Latuda 20 mg 10/17: Continue current regimen and plans and discontinue Latuda I spent minutes with the patient and/or on the patient floor today, greater than?50% of which was spent counseling/coordinating care. Reason for contiued inpatient stay Substantial Risk for: other
[2021-10-17 21:30] VITALS: BP 119/75; PULSE 73; TEMP 36.4
[2021-10-17] MEDS: Melatonin 3 MG TABLET 9 MG PO (21:37)
[2021-10-17] MEDS: QUEtiapine Fumarate 300 MG TABLET 600 MG PO (21:38)
[2021-10-17] MEDS: rOPINIRole HCL 1 MG TABLET 2 MG PO (21:39)
[2021-10-17] MEDS: LORazepam 1 MG TABLET PO (22:06)
[2021-10-17] MEDS: hydrOXYzine HCL 25 MG TABLET PO (22:14)
[2021-10-18 09:00] VITALS: BP 134/98; PULSE 86; TEMP 37.1
[2021-10-18] MEDS: rOPINIRole HCL 0.5 MG TABLET PO (09:37)
[2021-10-18] MEDS: Nicotine 14 MG PATCH.TD24 TRANSDERMA (09:37)
[2021-10-18] MEDS: DULoxetine HCl 30 MG CAPSULE.DR PO (09:38)
[2021-10-18] MEDS: Diclofenac Sodium Delayed Rel 50 MG TABLET.DR PO ×3 (09:38→21:43)
[2021-10-18] MEDS: Sennosides/Docusate Sodium TABLET 1 TAB PO ×2 (09:38→21:44)
[2021-10-18] MEDS: Cyanocobalamin (Vitamin B-12) 100 MCG TABLET PO (09:39)
[2021-10-18] MEDS: QUEtiapine Fumarate 100 MG TABLET PO (09:39)
[2021-10-18] MEDS: Multivitamin TABLET 1 TAB PO (09:39)
[2021-10-18] MEDS: Cholecalciferol (Vitamin D3) 10 MCG TABLET PO (09:39)
[2021-10-18] MEDS: amLODIPine Besylate 2.5 MG TABLET PO (09:39)
[2021-10-18] MEDS: Nicotine Polacrilex 2 MG GUM 4 MG BUCCAL ×3 (09:39→21:53)
[2021-10-18] MEDS: Gabapentin 400 MG CAPSULE 800 MG PO ×3 (09:39→21:44)
[2021-10-18] MEDS: Lithium Carbonate 300 MG TABLET PO ×2 (09:39→21:44)
[2021-10-18] MEDS: Sodium Chloride 0.65 % Nasal 44 ML SPRBTL 1 SPRAY NOSTRIL-B (09:40)
[2021-10-18] MEDS: Mineral Oil/Petrolatum,White 106 GM Tube 1 APPL TOPICAL (09:40)
--- NOTE | 2021-10-18 16:05 | P.PNPSI_ITS ---
Subjective Subjective Date of Service: 10/18/21 Reason For Visit: Bipolar, Schizoaffective Subjective Notes: Conditional Voluntary Healthcare Proxy: No Guardianship: No Medical Problems Affecting Mental Status: No Interim History: Blanca had asked the weekend coverage to begin Cymbalta after our discussion on 10/15 regarding the risk of cycling. Discussed with pt the rationale for not continuing Cymbalta again. She is not interested at this time in any other trials. Medication Compliance: Yes Side effects from medications: No Attending Groups: No Review of Systems Acute medical concerns: No Medical Review of Systems: unchanged Review of Systems Psychiatric: Reports anxiety and Reports depression Mental Status Exam Mental Status Exam Patient Appearance: Appropriate Patient Orientation: Person, Place, Time and Situation Level of Consciousness: Alert Patient Behavior: Talkative and Cooperative Mood Description: Depressed Affect Description: Flat Patient Cognition Impaired: No Ability to Follow Directions: Good Speech Pattern: Spontaneous Speech Memory Description: Intact Hallucinations: None Delusions: Not Present Perceptual Disturbances: Depersonalization and Derealization Thought Process: Goal Oriented Thought Content: positive for Goal Oriented Depressive Symptoms: Increased Fatigue and Loss of Energy Judgement: Good Diagnostics Vital Signs (24Hr): Vital Signs - 24 hr 10/17/21 21:30 10/18/21 09:00 Temperature 97.5 F 98.8 F Pulse Rate 73 86 Blood Pressure 119/75 134/98 H BMI result Body Mass Index 32.8 Labs Results: 10/07/21 08:06 Imaging Radiology Impressions: ITS Impressions Abdomen Ultrasound 09/01/21 08:59 IMPRESSION: Slightly echogenic liver. Limited evaluation of the gallbladder as the patient has recently eaten. No gallstone seen. Limited visualization of the pancreas. Hip X-Ray 09/16/21 14:47 IMPRESSION: Moderate to severe left hip arthritis. Medications Medications Current Medications Acetaminophen (Acetaminophen 325 Mg Tablet) 975 mg PO Q6H PRN PRN Reason: Headache/Pain Mild Scale (1-3) Last Admin: 10/14/21 18:18 Dose: 975 mg Documented by: Al Hydroxide/Mg Hydroxide (Magnesium Hydrox/Alum Hydrox 30 Ml Oral.Susp) 30 ml PO Q6H PRN PRN Reason: Heartburn/Nausea Last Admin: 08/22/21 05:54 Dose: 30 ml Documented by: Amlodipine Besylate (Amlodipine Besylate 2.5 Mg Tablet) 2.5 mg PO DAILY YAYA; Protocol Last Admin: 10/18/21 09:39 Dose: 2.5 mg Documented by: Artificial Tears (Artificial Tears 15 Ml Drops) 2 drop EYE-BOTH Q4H PRN PRN Reason: Dry Eyes Last Admin: 10/15/21 22:14 Dose: 2 drop Documented by: Aspirin (Aspirin Enteric Coated 325 Mg Tablet.) 650 mg PO DAILY PRN PRN Reason: headache Last Admin: 09/06/21 12:18 Dose: 650 mg Documented by: Benzocaine (Benzocaine 20 % Oral Gel 9 Gm Tube) 1 appl MUCOUS MEM QID PRN; Protocol PRN Reason: Mouth Sore Pain Last Admin: 08/31/21 03:05 Dose: 1 appl Documented by: Calcium Carbonate (Calcium Carbonate 500 Mg Tablet) 500 mg PO DAILY [facility] Last Admin: 10/18/21 09:40 Dose: 500 mg Documented by: [place] Butter/Zinc Oxide ([place] Butter/Zinc Oxide Supp.Rect) 1 supp [place] BEDTIME PRN PRN Reason: hemorrhoid pain Last Admin: 09/13/21 21:15 Dose: 1 supp Documented by: Cyanocobalamin (Cyanocobalamin (Vitamin B-12) 100 Mcg Tablet) 100 mcg PO DAILY [facility] [place] Last Admin: 10/18/21 09:39 Dose: 100 mcg Documented by: Diclofenac Sodium (Diclofenac Sodium Delayed Rel 50 Mg Tablet.) 50 mg PO TID [facility] [place] Last Admin: 10/18/21 15:08 Dose: 50 mg Documented by: Diphenhydramine HCl (Diphenhydramine Hcl 25 Mg Tablet) 50 mg PO Q6H PRN PRN Reason: eps Last Admin: 09/22/21 23:48 Dose: 50 mg Documented by: Gabapentin (Gabapentin 400 Mg Capsule) 800 mg PO TID [facility] [place] Last Admin: 10/18/21 15:08 Dose: 800 mg Documented by: Gabapentin (Gabapentin 100 Mg Capsule) 100 mg PO TID PRN PRN Reason: neuropathic pain Last Admin: 09/26/21 17:14 Dose: 100 mg Documented by: Hydroxyzine HCl (Hydroxyzine Hcl 25 Mg Tablet) 25 mg PO BEDTIME PRN PRN Reason: Anxiety Last Admin: 09/22/21 23:48 Dose: 25 mg Documented by: Hydroxyzine HCl (Hydroxyzine Hcl 25 Mg Tablet) 25 mg PO BEDTIME [facility] [place] Last Admin: 10/17/21 22:14 Dose: 25 mg Documented by: Lidocaine (Lidocaine 4 % Patch Adh..Patch) 1 patch TRANSDERMA DAILY [facility]; Protocol Last Admin: 10/18/21 11:17 Dose: Not Given Documented by: Lidocaine (Lidocaine 4 % Patch Adh..Patch) 1 patch TRANSDERMA DAILY [facility]; Protocol Last Admin: 10/18/21 11:17 Dose: Not Given Documented by: [place] Carbonate ([place] Carbonate 300 Mg Tablet) 300 mg PO BID [facility] [place] Last Admin: 10/18/21 09:39 Dose: 300 mg Documented by: Lorazepam (Lorazepam 1 Mg Tablet) 1 mg PO TID PRN PRN Reason: anxiety/restlessness Last Admin: 10/17/21 22:06 Dose: 1 mg Documented by: Magnesium Citrate (Magnesium Citrate 300 Ml Solution) 300 ml PO DAILY PRN PRN Reason: Constipation Last Admin: 10/10/21 13:37 Dose: 300 ml Documented by: Magnesium Hydroxide (Milk Of Magnesia 30 Ml Oral.Susp) 30 ml PO DAILY PRN PRN Reason: Constipation Last Admin: 08/31/21 20:05 Dose: 30 ml Documented by: Melatonin (Melatonin 3 Mg Tablet) 9 mg PO BEDTIME [facility] [place] Last Admin: 10/17/21 21:37 Dose: 9 mg Documented by: Multi-Ingred Cream/Lotion/Oil/Oint (Mineral Oil/Petrolatum,White 106 Gm Tube) 1 appl TOPICAL BID [facility] [place]; Protocol Last Admin: 10/18/21 09:40 Dose: 1 appl Documented by: Multivitamins/Vitamin C (Multivitamin Tablet) 1 tab PO DAILY [facility] [place] Last Admin: 10/18/21 09:39 Dose: 1 tab Documented by: Nicotine (Nicotine 14 Mg Patch.Td24) 14 mg TRANSDERMA DAILY [facility] [place] Last Admin: 10/18/21 09:37 Dose: 14 mg Documented by: Nicotine Polacrilex (Nicotine Polacrilex 2 Mg Gum) 4 mg BUCCAL Q1H PRN PRN Reason: Nicotine Cravings Last Admin: 10/18/21 15:12 Dose: 4 mg Documented by: Patient Own Medication (Dry Eye Relief) 1 each EYE-BOTH QID [facility] [place] Last Admin: 10/18/21 13:14 Dose: 1 each Documented by: Psyllium Hydrophilic Mucilloid (Psyll[place] Seed 3.4 Gm Powd.Pack) 3.4 gm PO DAILY [facility] [place] Last Admin: 10/18/21 09:37 Dose: 3.4 gm Documented by: Quetiapine Fumarate (Quetiapine Fumarate 200 Mg Tablet) 200 mg PO Q6H PRN PRN Reason: anxiety/restlessness Last Admin: 09/21/21 02:38 Dose: 200 mg Documented by: Quetiapine Fumarate (Quetiapine Fumarate 100 Mg Tablet) 100 mg PO DAILY [facility] [place] Last Admin: 10/18/21 09:39 Dose: 100 mg Documented by: Quetiapine Fumarate (Quetiapine Fumarate 300 Mg Tablet) 600 mg PO BEDTIME [facility] [place] Last Admin: 10/17/21 21:38 Dose: 600 mg Documented by: Ropinirole HCl (Ropinirole Hcl 0.5 Mg Tablet) 0.5 mg PO 0800 [facility] [place] Last Admin: 10/18/21 09:37 Dose: 0.5 mg Documented by: Ropinirole HCl (Ropinirole Hcl 1 Mg Tablet) 2 mg PO DAILY@1900 [facility] [place] Last Admin: 10/17/21 21:39 Dose: 2 mg Documented by: Senna/Docusate Sodium (Sennosides/Docusate Sodium Tablet) 1 tab PO BID [facility] Last Admin: 10/18/21 09:38 Dose: 1 tab Documented by: Simethicone (Simethicone 80 Mg Tab.Chew) 80 mg PO QIDWMHS PRN PRN Reason: indigestion Sodium Chloride (Sodium Chloride 0.65 % Nasal 44 Ml Sprbtl) 1 spray NOSTRIL-B Q1H PRN PRN Reason: congestion Last Admin: 10/18/21 09:40 Dose: 1 spray Documented by: Trolamine Salicylate/Aloe Vera (Trolamine Salicylate 10%/Aloe Cream 35.4 Gm) 1 appl TOPICAL TID PRN PRN Reason: sciatica Last Admin: 09/03/21 05:27 Dose: 1 appl Documented by: Vitamin D (Cholecalciferol (Vitamin D3) 10 Mcg Tablet) 10 mcg PO DAILY [facility] [place] Last Admin: 10/18/21 09:39 Dose: 10 mcg Documented by: Allergies Allergies Allergy/AdvReac Type Severity Reaction Status Date / Time aripiprazole [From [place]] Allergy Unknown Involuntary Verified 08/19/21 07:20 Spasms chlorpromazine Allergy Unknown Nausea and Verified 08/19/21 07:20 [From Thorazine] Vomiting haloperidol [From Haldol] Allergy Unknown Involuntary Verified 08/19/21 07:20 Spasms olanzapine [From Zyprexa] Allergy Unknown Involuntary Verified 08/19/21 07:20 Spasms paliperidone [From Invega] Allergy Unknown Hallucinati Verified 08/19/21 07:20 ons risperidone Allergy Unknown Involuntary Verified 08/19/21 07:20 Spasms Assessment & Plan Assessment & Plan (1) Schizoaffective disorder, bipolar type: Status: Acute Code(s): F25.0 - Schizoaffective disorder, bipolar type Assessment and Plan: Continue current plan (2) Lumbar radiculopathy: Status: Acute Code(s): M54.16 - Radiculopathy, lumbar region (3) Hip pain, left: Status: Acute Code(s): M25.552 - Pain in left hip Plan 09/20/21- Improving. Transition planning with [facility]. Pt is looking at discharge to a rest home and transitioning to [facility] services in [facility]. No medication changes today. 09/21: stable on current medications. on seroquel and lithium, c/o of hip pain on ibuprofen with partial response. no behavioral concerns. no overt delusional content nor psychosis noted. 09/22/21: Continue plan of care. 09/23/21: Ortho consult-Left hip pain Pt has requested a flu shot. Discharge planning-pt considering a rest home as a temporary placement. 09/24 continue per primary treatment team. 09/25: no med changes, pt is sig less manic 09/27/21: Continue plan of care. Transitioning from [facility] to local office. 09/28/21: Continue plan of care. Support in transition and discharge planning. Refusal of [place] discussed with Blanca. Discussed other options- she will consider. 10/01/21: Continue plan of care. Fe, TIBC, ESR, CRP, RF, Vit D, CCP 10/03/21: Discontinue clonidine, mirtazapine Change diclofenic to 50 mg tid 10/06/21 Continue current regime 10/07/21 Colace 100 mg bid, high fiber diet 10/10/2021 continue current plan discharge planning 10/11/2021: Continue current regimen and plans 10/12/21: Reports leg stiffness-?EPS-Benztropine 1 mg bid to begin 10/13. Vitamin D3 10 mcg daily 10/14/21: Continue current regime-await a response from a local rest home regarding placement. 10/15/21: Latuda 20 mg HS. Discontinue Colace 10/16: Continue current regimen and plans with addition of Cymbalta 30 mg and she has been refusing Latuda 20 mg 10/17: Continue current regimen and plans and discontinue Latuda 10/18: Discontinue Cymbalta due to high risk of mood cycling. Pt declines other interventions at this time. I spent minutes with the patient and/or on the patient floor today, greater than?50% of which was spent counseling/coordinating care. Patient educated on: medication risk/benefits Informed Consent: understands Reason for contiued inpatient stay Substantial Risk for: inability to function and rapid decompensation
[2021-10-18 20:00] VITALS: BP 122/74; PULSE 75; TEMP 36.8; O2SAT 95
[2021-10-18] MEDS: rOPINIRole HCL 1 MG TABLET 2 MG PO (20:31)
[2021-10-18] MEDS: Melatonin 3 MG TABLET 9 MG PO (21:43)
[2021-10-18] MEDS: hydrOXYzine HCL 25 MG TABLET PO (21:43)
[2021-10-18] MEDS: QUEtiapine Fumarate 300 MG TABLET 600 MG PO (21:44)
[2021-10-18] MEDS: LORazepam 1 MG TABLET PO (21:53)
[2021-10-19 06:00] VITALS: BP 125/85; PULSE 82; RESP 14; O2SAT 96
[2021-10-19] MEDS: Diclofenac Sodium Delayed Rel 50 MG TABLET.DR PO ×3 (09:49→20:06)
[2021-10-19] MEDS: Nicotine Polacrilex 2 MG GUM 4 MG BUCCAL ×4 (09:49→20:15)
[2021-10-19] MEDS: Lithium Carbonate 300 MG TABLET PO ×2 (09:50→20:45)
[2021-10-19] MEDS: Gabapentin 400 MG CAPSULE 800 MG PO ×3 (09:50→20:06)
[2021-10-19] MEDS: rOPINIRole HCL 0.5 MG TABLET PO (09:50)
[2021-10-19] MEDS: QUEtiapine Fumarate 100 MG TABLET PO (09:50)
[2021-10-19] MEDS: Sennosides/Docusate Sodium TABLET 1 TAB PO ×2 (09:50→20:07)
[2021-10-19] MEDS: amLODIPine Besylate 2.5 MG TABLET PO (09:50)
[2021-10-19] MEDS: Cholecalciferol (Vitamin D3) 10 MCG TABLET PO (09:50)
[2021-10-19] MEDS: Multivitamin TABLET 1 TAB PO (09:50)
[2021-10-19] MEDS: Nicotine 14 MG PATCH.TD24 TRANSDERMA (09:51)
[2021-10-19] MEDS: Cyanocobalamin (Vitamin B-12) 100 MCG TABLET PO (09:52)
[2021-10-19] MEDS: rOPINIRole HCL 1 MG TABLET 2 MG PO (18:37)
[2021-10-19] MEDS: LORazepam 1 MG TABLET PO (18:37)
[2021-10-19] MEDS: Artificial Tears 15 ML DROPS 2 DROP EYE-BOTH (18:37)
[2021-10-19 20:00] VITALS: BP 119/60; PULSE 73; TEMP 35.8; O2SAT 97
[2021-10-19] MEDS: QUEtiapine Fumarate 300 MG TABLET 600 MG PO (20:06)
[2021-10-19] MEDS: hydrOXYzine HCL 25 MG TABLET PO (20:07)
[2021-10-19] MEDS: Melatonin 3 MG TABLET 9 MG PO (20:07)
--- NOTE | 2021-10-19 22:28 | P.PNPSI_ITS ---
Subjective Subjective Date of Service: 10/19/21 Reason For Visit: Bipolar, Schizoaffective Subjective Notes: Conditional Voluntary Interim History: Reports depressive sx. Asks to remain in pt so these can be managed. Discouraged regarding her care mgt team in [place] poor response to her needs regarding transfer of area. Discussed frustration and discouragement. Does not find Wellbutrin helpful by history. Asks to take a chance with Cymbalta-she suggests Seroquel increase to assist in cycling. I want to be well . This has been a helpful hospital for me I want you to give me a chance on the lowest dosage. Verbalized awareness of cycling risk and believes this could be managed. Medication Compliance: Yes Side effects from medications: No Attending Groups: No Review of Systems Acute medical concerns: No Medical Review of Systems: unchanged Review of Systems Psychiatric: Reports anxiety and Reports depression Mental Status Exam Mental Status Exam Patient Appearance: Appropriate Patient Orientation: Person, Place, Time and Situation Level of Consciousness: Alert Patient Behavior: Talkative and Cooperative Mood Description: Depressed Affect Description: Flat Patient Cognition Impaired: No Ability to Follow Directions: Good Speech Pattern: Spontaneous Speech Memory Description: Intact Hallucinations: None Delusions: Not Present Perceptual Disturbances: Depersonalization and Derealization Thought Process: Goal Oriented Thought Content: positive for Goal Oriented Depressive Symptoms: Increased Fatigue and Loss of Energy Judgement: Good Diagnostics Vital Signs (24Hr): Vital Signs - 24 hr 10/19/21 06:00 10/19/21 20:00 Temperature 96.4 F L Pulse Rate 82 73 Respiratory Rate 14 Blood Pressure 125/85 119/60 Pulse Oximetry 96 97 BMI result Body Mass Index 32.8 Labs Results: 10/07/21 08:06 Imaging Radiology Impressions: ITS Impressions Abdomen Ultrasound 09/01/21 08:59 IMPRESSION: Slightly echogenic liver. Limited evaluation of the gallbladder as the patient has recently eaten. No gallstone seen. Limited visualization of the pancreas. Hip X-Ray 09/16/21 14:47 IMPRESSION: Moderate to severe left hip arthritis. Medications Medications Current Medications Acetaminophen (Acetaminophen 325 Mg Tablet) 975 mg PO Q6H PRN PRN Reason: Headache/Pain Mild Scale (1-3) Last Admin: 10/14/21 18:18 Dose: 975 mg Documented by: Al Hydroxide/Mg Hydroxide (Magnesium Hydrox/Alum Hydrox 30 Ml Oral.Susp) 30 ml PO Q6H PRN PRN Reason: Heartburn/Nausea Last Admin: 08/22/21 05:54 Dose: 30 ml Documented by: Amlodipine Besylate (Amlodipine Besylate 2.5 Mg Tablet) 2.5 mg PO DAILY [facility]; Protocol Last Admin: 10/19/21 09:50 Dose: 2.5 mg Documented by: Artificial Tears (Artificial Tears 15 Ml Drops) 2 drop EYE-BOTH Q4H PRN PRN Reason: Dry Eyes Last Admin: 10/19/21 18:37 Dose: 2 drop Documented by: Aspirin (Aspirin Enteric Coated 325 Mg Tablet.) 650 mg PO DAILY PRN PRN Reason: headache Last Admin: 09/06/21 12:18 Dose: 650 mg Documented by: Benzocaine (Benzocaine 20 % Oral Gel 9 Gm Tube) 1 appl MUCOUS MEM QID PRN; Protocol PRN Reason: Mouth Sore Pain Last Admin: 08/31/21 03:05 Dose: 1 appl Documented by: Bupropion HCl (Bupropion Hcl 75 Mg Tablet) 75 mg PO DAILY [facility] Calcium Carbonate (Calcium Carbonate 500 Mg Tablet) 500 mg PO DAILY [facility] Last Admin: 10/19/21 09:50 Dose: 500 mg Documented by: [place] Butter/Zinc Oxide ([place] Butter/Zinc Oxide Supp.Rect) 1 supp [place] BEDTIME PRN PRN Reason: hemorrhoid pain Last Admin: 09/13/21 21:15 Dose: 1 supp Documented by: Cyanocobalamin (Cyanocobalamin (Vitamin B-12) 100 Mcg Tablet) 100 mcg PO DAILY [facility] Last Admin: 10/19/21 09:52 Dose: 100 mcg Documented by: Diclofenac Sodium (Diclofenac Sodium Delayed Rel 50 Mg Tablet.) 50 mg PO TID [facility] Last Admin: 10/19/21 20:06 Dose: 50 mg Documented by: Diphenhydramine HCl (Diphenhydramine Hcl 25 Mg Tablet) 50 mg PO Q6H PRN PRN Reason: eps Last Admin: 09/22/21 23:48 Dose: 50 mg Documented by: Gabapentin (Gabapentin 400 Mg Capsule) 800 mg PO TID [facility] Last Admin: 10/19/21 20:06 Dose: 800 mg Documented by: Gabapentin (Gabapentin 100 Mg Capsule) 100 mg PO TID PRN PRN Reason: neuropathic pain Last Admin: 09/26/21 17:14 Dose: 100 mg Documented by: Hydroxyzine HCl (Hydroxyzine Hcl 25 Mg Tablet) 25 mg PO BEDTIME PRN PRN Reason: Anxiety Last Admin: 09/22/21 23:48 Dose: 25 mg Documented by: Hydroxyzine HCl (Hydroxyzine Hcl 25 Mg Tablet) 25 mg PO BEDTIME [facility] Last Admin: 10/19/21 20:07 Dose: 25 mg Documented by: Lidocaine (Lidocaine 4 % Patch Adh..Patch) 1 patch TRANSDERMA DAILY [facility]; Protocol Last Admin: 10/19/21 10:07 Dose: Not Given Documented by: Lidocaine (Lidocaine 4 % Patch Adh..Patch) 1 patch TRANSDERMA DAILY [facility]; Protocol Last Admin: 10/19/21 10:07 Dose: Not Given Documented by: [place] Carbonate ([place] Carbonate 300 Mg Tablet) 300 mg PO BID [facility] Last Admin: 10/19/21 20:45 Dose: 300 mg Documented by: Lorazepam (Lorazepam 1 Mg Tablet) 1 mg PO TID PRN PRN Reason: anxiety/restlessness Last Admin: 10/19/21 18:37 Dose: 1 mg Documented by: Magnesium Citrate (Magnesium Citrate 300 Ml Solution) 300 ml PO DAILY PRN PRN Reason: Constipation Last Admin: 10/10/21 13:37 Dose: 300 ml Documented by: Magnesium Hydroxide (Milk Of Magnesia 30 Ml Oral.Susp) 30 ml PO DAILY PRN PRN Reason: Constipation Last Admin: 08/31/21 20:05 Dose: 30 ml Documented by: Melatonin (Melatonin 3 Mg Tablet) 9 mg PO BEDTIME [facility] Last Admin: 10/19/21 20:07 Dose: 9 mg Documented by: Multi-Ingred Cream/Lotion/Oil/Oint (Mineral Oil/Petrolatum,White 106 Gm Tube) 1 appl TOPICAL BID [facility]; Protocol Last Admin: 10/19/21 21:01 Dose: Not Given Documented by: Multivitamins/Vitamin C (Multivitamin Tablet) 1 tab PO DAILY [facility] Last Admin: 10/19/21 09:50 Dose: 1 tab Documented by: Nicotine (Nicotine 14 Mg Patch.Td24) 14 mg TRANSDERMA DAILY [facility] Last Admin: 10/19/21 09:51 Dose: 14 mg Documented by: Nicotine Polacrilex (Nicotine Polacrilex 2 Mg Gum) 4 mg BUCCAL Q1H PRN PRN Reason: Nicotine Cravings Last Admin: 10/19/21 20:15 Dose: 4 mg Documented by: Patient Own Medication (Dry Eye Relief) 1 each EYE-BOTH QID [facility] Last Admin: 10/19/21 21:02 Dose: Not Given Documented by: Psyllium Hydrophilic Mucilloid (Psyllium Seed 3.4 Gm Powd.Pack) 3.4 gm PO DAILY [facility] Last Admin: 10/19/21 09:51 Dose: 3.4 gm Documented by: Quetiapine Fumarate (Quetiapine Fumarate 200 Mg Tablet) 200 mg PO Q6H PRN PRN Reason: anxiety/restlessness Last Admin: 09/21/21 02:38 Dose: 200 mg Documented by: Quetiapine Fumarate (Quetiapine Fumarate 100 Mg Tablet) 100 mg PO DAILY [facility] Last Admin: 10/19/21 09:50 Dose: 100 mg Documented by: Quetiapine Fumarate (Quetiapine Fumarate 300 Mg Tablet) 600 mg PO BEDTIME [facility] Last Admin: 10/19/21 20:06 Dose: 600 mg Documented by: Ropinirole HCl (Ropinirole Hcl 0.5 Mg Tablet) 0.5 mg PO 0800 [facility] Last Admin: 10/19/21 09:50 Dose: 0.5 mg Documented by: Ropinirole HCl (Ropinirole Hcl 1 Mg Tablet) 2 mg PO DAILY@1900 [facility] Last Admin: 10/19/21 18:37 Dose: 2 mg Documented by: Senna/Docusate Sodium (Sennosides/Docusate Sodium Tablet) 1 tab PO BID [facility] Last Admin: 10/19/21 20:07 Dose: 1 tab Documented by: Simethicone (Simethicone 80 Mg Tab.Chew) 80 mg PO QIDWMHS PRN PRN Reason: indigestion Sodium Chloride (Sodium Chloride 0.65 % Nasal 44 Ml Sprbtl) 1 spray NOSTRIL-B Q1H PRN PRN Reason: congestion Last Admin: 10/18/21 09:40 Dose: 1 spray Documented by: Trolamine Salicylate/Aloe Vera (Trolamine Salicylate 10%/Aloe Cream 35.4 Gm) 1 appl TOPICAL TID PRN PRN Reason: sciatica Last Admin: 09/03/21 05:27 Dose: 1 appl Documented by: Vitamin D (Cholecalciferol (Vitamin D3) 10 Mcg Tablet) 10 mcg PO DAILY [facility] Last Admin: 10/19/21 09:50 Dose: 10 mcg Documented by: Allergies Allergies Allergy/AdvReac Type Severity Reaction Status Date / Time aripiprazole [From Abilify] Allergy Unknown Involuntary Verified 08/19/21 07:20 Spasms chlorpromazine Allergy Unknown Nausea and Verified 08/19/21 07:20 [From Thorazine] Vomiting haloperidol [From Haldol] Allergy Unknown Involuntary Verified 08/19/21 07:20 Spasms olanzapine [From Zyprexa] Allergy Unknown Involuntary Verified 08/19/21 07:20 Spasms paliperidone [From Invega] Allergy Unknown Hallucinati Verified 08/19/21 07:20 ons risperidone Allergy Unknown Involuntary Verified 08/19/21 07:20 Spasms Assessment & Plan Assessment & Plan (1) Schizoaffective disorder, bipolar type: Status: Acute Code(s): F25.0 - Schizoaffective disorder, bipolar type Assessment and Plan: Continue current plan (2) Lumbar radiculopathy: Status: Acute Code(s): M54.16 - Radiculopathy, lumbar region (3) Hip pain, left: Status: Acute Code(s): M25.552 - Pain in left hip Plan 09/20/21- Improving. Transition planning with [facility]. Pt is looking at discharge to a rest home and transitioning to [facility] services in [facility]. No medication changes today. 09/21: stable on current medications. on seroquel and lithium, c/o of hip pain on ibuprofen with partial response. no behavioral concerns. no overt delusional content nor psychosis noted. 09/22/21: Continue plan of care. 09/23/21: Ortho consult-Left hip pain Pt has requested a flu shot. Discharge planning-pt considering a rest home as a temporary [place]. 09/24 continue per primary treatment team. 09/25: no med changes, pt is sig less manic 09/27/21: Continue plan of care. Transitioning from [facility] of [facility] to local office. 09/28/21: Continue plan of care. Support in transition and discharge planning. Refusal of [place] discussed with [place]. Discussed other options- she will consider. 10/01/21: Continue plan of care. Fe, TIBC, ESR, CRP, RF, Vit D, CCP 10/03/21: Discontinue clonidine, mirtazapine Change diclofenic to 50 mg tid 10/06/21 Continue current regime 10/07/21 Colace 100 mg bid, high fiber diet 10/10/2021 continue current plan discharge planning 10/11/2021: Continue current regimen and plans 10/12/21: Reports leg stiffness-?EPS-Benztropine 1 mg bid to begin 10/13. Vitamin D3 10 mcg daily 10/14/21: Continue current regime-await a response from a local rest home regarding placement. 10/15/21: Latuda 20 mg HS. Discontinue Colace 10/16: Continue current regimen and plans with addition of Cymbalta 30 mg and she has been refusing Latuda 20 mg 10/17: Continue current regimen and plans and discontinue Latuda 10/19/21: Continue current regime. I spent minutes with the patient and/or on the patient floor today, greater than?50% of which was spent counseling/coordinating care. Patient educated on: medication risk/benefits Informed Consent: understands and further education needed Reason for contiued inpatient stay Substantial Risk for: inability to function and rapid decompensation
[2021-10-20 09:00] VITALS: BP 132/85; PULSE 86; RESP 16; TEMP 37.3; O2SAT 97
[2021-10-20] MEDS: Nicotine 14 MG PATCH.TD24 TRANSDERMA (09:24)
[2021-10-20] MEDS: Multivitamin TABLET 1 TAB PO (09:25)
[2021-10-20] MEDS: Sennosides/Docusate Sodium TABLET 1 TAB PO ×2 (09:25→19:11)
[2021-10-20] MEDS: buPROPion HCL 75 MG TABLET PO (09:25)
[2021-10-20] MEDS: Cyanocobalamin (Vitamin B-12) 100 MCG TABLET PO (09:25)
[2021-10-20] MEDS: amLODIPine Besylate 2.5 MG TABLET PO (09:25)
[2021-10-20] MEDS: Diclofenac Sodium Delayed Rel 50 MG TABLET.DR PO ×3 (09:25→19:09)
[2021-10-20] MEDS: Lithium Carbonate 300 MG TABLET PO ×2 (09:25→19:11)
[2021-10-20] MEDS: QUEtiapine Fumarate 100 MG TABLET PO (09:25)
[2021-10-20] MEDS: rOPINIRole HCL 0.5 MG TABLET PO (09:26)
[2021-10-20] MEDS: Cholecalciferol (Vitamin D3) 10 MCG TABLET PO (09:26)
[2021-10-20] MEDS: Nicotine Polacrilex 2 MG GUM 4 MG BUCCAL ×4 (09:26→19:13)
[2021-10-20] MEDS: Gabapentin 400 MG CAPSULE 800 MG PO ×3 (09:26→19:11)
[2021-10-20] MEDS: Mineral Oil/Petrolatum,White 106 GM Tube 1 APPL TOPICAL (09:31)
[2021-10-20] MEDS: Magnesium Citrate 300 ML SOLUTION PO (12:09)
[2021-10-20 18:00] VITALS: BP 132/79; PULSE 86; RESP 16; TEMP 36.5; O2SAT 96
[2021-10-20] MEDS: rOPINIRole HCL 1 MG TABLET 2 MG PO (18:02)
[2021-10-20] MEDS: LORazepam 1 MG TABLET PO (19:09)
[2021-10-20] MEDS: QUEtiapine Fumarate 300 MG TABLET 600 MG PO (19:12)
[2021-10-20] MEDS: Melatonin 3 MG TABLET 9 MG PO (19:12)
--- NOTE | 2021-10-20 20:02 | P.PNPSI_ITS ---
Subjective Subjective Date of Service: 10/20/21 Reason For Visit: Bipolar, Schizoaffective Interim History: Review of medicine changes. Asks to discontinue Wellbutrin and re-trial Cymbalta 20 mg. Requests Lotromin-sx of athletes feet. Discussed discharge planning- I will be homeless I need to have my mood in check. Medication Compliance: Yes Side effects from medications: No Attending Groups: No Review of Systems Acute medical concerns: No Medical Review of Systems: unchanged Review of Systems Psychiatric: Reports anxiety and Reports depression Mental Status Exam Mental Status Exam Patient Appearance: Appropriate Patient Orientation: Person, Place, Time and Situation Level of Consciousness: Alert Patient Behavior: Talkative and Cooperative Mood Description: Depressed Affect Description: Flat Patient Cognition Impaired: No Ability to Follow Directions: Good Speech Pattern: Spontaneous Speech Memory Description: Intact Hallucinations: None Delusions: Not Present Perceptual Disturbances: Depersonalization and Derealization Thought Process: Goal Oriented Thought Content: positive for Goal Oriented Depressive Symptoms: Increased Fatigue and Loss of Energy Judgement: Good Diagnostics Vital Signs (24Hr): Vital Signs - 24 hr 10/20/21 09:00 10/20/21 18:00 Temperature 99.1 F 97.7 F Pulse Rate 86 86 Respiratory Rate 16 16 Blood Pressure 132/85 132/79 Pulse Oximetry 97 96 BMI result Body Mass Index 32.8 Labs Results: 10/07/21 08:06 Imaging Radiology Impressions: ITS Impressions Abdomen Ultrasound 09/01/21 08:59 IMPRESSION: Slightly echogenic liver. Limited evaluation of the gallbladder as the patient has recently eaten. No gallstone seen. Limited visualization of the pancreas. Hip X-Ray 09/16/21 14:47 IMPRESSION: Moderate to severe left hip arthritis. Medications Medications Current Medications Acetaminophen (Acetaminophen 325 Mg Tablet) 975 mg PO Q6H PRN PRN Reason: Headache/Pain Mild Scale (1-3) Last Admin: 10/14/21 18:18 Dose: 975 mg Documented by: Al Hydroxide/Mg Hydroxide (Magnesium Hydrox/Alum Hydrox 30 Ml Oral.Susp) 30 ml PO Q6H PRN PRN Reason: Heartburn/Nausea Last Admin: 08/22/21 05:54 Dose: 30 ml Documented by: Amlodipine Besylate (Amlodipine Besylate 2.5 Mg Tablet) 2.5 mg PO DAILY [facility]; Protocol Last Admin: 10/20/21 09:25 Dose: 2.5 mg Documented by: Artificial Tears (Artificial Tears 15 Ml Drops) 2 drop EYE-BOTH Q4H PRN PRN Reason: Dry Eyes Last Admin: 10/19/21 18:37 Dose: 2 drop Documented by: Aspirin (Aspirin Enteric Coated 325 Mg Tablet.) 650 mg PO DAILY PRN PRN Reason: headache Last Admin: 09/06/21 12:18 Dose: 650 mg Documented by: Benzocaine (Benzocaine 20 % Oral Gel 9 Gm Tube) 1 appl MUCOUS MEM QID PRN; Protocol PRN Reason: Mouth Sore Pain Last Admin: 08/31/21 03:05 Dose: 1 appl Documented by: Calcium Carbonate (Calcium Carbonate 500 Mg Tablet) 500 mg PO DAILY [facility] Last Admin: 10/20/21 09:25 Dose: 500 mg Documented by: Clotrimazole (Clotrimazole 1 % Cream 15 Gm Tube) 1 appl TOPICAL BID [facility]; Protocol [place] Butter/Zinc Oxide ([place] Butter/Zinc Oxide Supp.Rect) 1 supp [place] BEDTIME PRN PRN Reason: hemorrhoid pain Last Admin: 09/13/21 21:15 Dose: 1 supp Documented by: Cyanocobalamin (Cyanocobalamin (Vitamin B-12) 100 Mcg Tablet) 100 mcg PO DAILY [facility] Last Admin: 10/20/21 09:25 Dose: 100 mcg Documented by: Diclofenac Sodium (Diclofenac Sodium Delayed Rel 50 Mg Tablet.) 50 mg PO TID [facility] Last Admin: 10/20/21 19:09 Dose: 50 mg Documented by: Diphenhydramine HCl (Diphenhydramine Hcl 25 Mg Tablet) 50 mg PO Q6H PRN PRN Reason: eps Last Admin: 09/22/21 23:48 Dose: 50 mg Documented by: Duloxetine HCl (Duloxetine Hcl 20 Mg Capsule.) 20 mg PO DAILY [facility] Gabapentin (Gabapentin 400 Mg Capsule) 800 mg PO TID [facility] Last Admin: 10/20/21 19:11 Dose: 800 mg Documented by: Gabapentin (Gabapentin 100 Mg Capsule) 100 mg PO TID PRN PRN Reason: neuropathic pain Last Admin: 09/26/21 17:14 Dose: 100 mg Documented by: Hydroxyzine HCl (Hydroxyzine Hcl 25 Mg Tablet) 25 mg PO BEDTIME PRN PRN Reason: Anxiety Last Admin: 09/22/21 23:48 Dose: 25 mg Documented by: Hydroxyzine HCl (Hydroxyzine Hcl 25 Mg Tablet) 25 mg PO BEDTIME [facility] Last Admin: 10/20/21 19:18 Dose: Not Given Documented by: Lidocaine (Lidocaine 4 % Patch Adh..Patch) 1 patch TRANSDERMA DAILY [facility]; Protocol Last Admin: 10/20/21 09:35 Dose: Not Given Documented by: Lidocaine (Lidocaine 4 % Patch Adh..Patch) 1 patch TRANSDERMA DAILY [facility]; Protocol Last Admin: 10/20/21 09:35 Dose: Not Given Documented by: [place] Carbonate ([place] Carbonate 300 Mg Tablet) 300 mg PO BID [facility] Last Admin: 10/20/21 19:11 Dose: 300 mg Documented by: Lorazepam (Lorazepam 1 Mg Tablet) 1 mg PO TID PRN PRN Reason: anxiety/restlessness Last Admin: 10/20/21 19:09 Dose: 1 mg Documented by: Magnesium Citrate (Magnesium Citrate 300 Ml Solution) 300 ml PO DAILY PRN PRN Reason: Constipation Last Admin: 10/20/21 12:09 Dose: 300 ml Documented by: Magnesium Hydroxide (Milk Of Magnesia 30 Ml Oral.Susp) 30 ml PO DAILY PRN PRN Reason: Constipation Last Admin: 08/31/21 20:05 Dose: 30 ml Documented by: Melatonin (Melatonin 3 Mg Tablet) 9 mg PO BEDTIME [facility] Last Admin: 10/20/21 19:12 Dose: 9 mg Documented by: Multi-Ingred Cream/Lotion/Oil/Oint (Mineral Oil/Petrolatum,White 106 Gm Tube) 1 appl TOPICAL BID [facility]; Protocol Last Admin: 10/20/21 19:22 Dose: Not Given Documented by: Multivitamins/Vitamin C (Multivitamin Tablet) 1 tab PO DAILY [facility] Last Admin: 10/20/21 09:25 Dose: 1 tab Documented by: Nicotine (Nicotine 14 Mg Patch.Td24) 14 mg TRANSDERMA DAILY [facility] Last Admin: 10/20/21 09:24 Dose: 14 mg Documented by: Nicotine Polacrilex (Nicotine Polacrilex 2 Mg Gum) 4 mg BUCCAL Q1H PRN PRN Reason: Nicotine Cravings Last Admin: 10/20/21 19:13 Dose: 4 mg Documented by: Patient Own Medication (Dry Eye Relief) 1 each EYE-BOTH QID [facility] Last Admin: 10/20/21 19:20 Dose: 1 each Documented by: Psyllium Hydrophilic Mucilloid (Psyllium Seed 3.4 Gm Powd.Pack) 3.4 gm PO DAILY [facility] Last Admin: 10/20/21 09:25 Dose: 3.4 gm Documented by: Quetiapine Fumarate (Quetiapine Fumarate 200 Mg Tablet) 200 mg PO Q6H PRN PRN Reason: anxiety/restlessness Last Admin: 09/21/21 02:38 Dose: 200 mg Documented by: Quetiapine Fumarate (Quetiapine Fumarate 100 Mg Tablet) 100 mg PO DAILY [facility] Last Admin: 10/20/21 09:25 Dose: 100 mg Documented by: Quetiapine Fumarate (Quetiapine Fumarate 300 Mg Tablet) 600 mg PO BEDTIME [facility] Last Admin: 10/20/21 19:12 Dose: 600 mg Documented by: Ropinirole HCl (Ropinirole Hcl 0.5 Mg Tablet) 0.5 mg PO 0800 [facility] Last Admin: 10/20/21 09:26 Dose: 0.5 mg Documented by: Ropinirole HCl (Ropinirole Hcl 1 Mg Tablet) 2 mg PO DAILY@1900 [facility] Last Admin: 10/20/21 18:02 Dose: 2 mg Documented by: Senna/Docusate Sodium (Sennosides/Docusate Sodium Tablet) 1 tab PO BID [facility] Last Admin: 10/20/21 19:11 Dose: 1 tab Documented by: Simethicone (Simethicone 80 Mg Tab.Chew) 80 mg PO QIDWMHS PRN PRN Reason: indigestion Sodium Chloride (Sodium Chloride 0.65 % Nasal 44 Ml Sprbtl) 1 spray NOSTRIL-B Q1H PRN PRN Reason: congestion Last Admin: 10/18/21 09:40 Dose: 1 spray Documented by: Trolamine Salicylate/Aloe Vera (Trolamine Salicylate 10%/Aloe Cream 35.4 Gm) 1 appl TOPICAL TID PRN PRN Reason: sciatica Last Admin: 09/03/21 05:27 Dose: 1 appl Documented by: Vitamin D (Cholecalciferol (Vitamin D3) 10 Mcg Tablet) 10 mcg PO DAILY [facility] Last Admin: 10/20/21 09:26 Dose: 10 mcg Documented by: Allergies Allergies Allergy/AdvReac Type Severity Reaction Status Date / Time aripiprazole [From Abilify] Allergy Unknown Involuntary Verified 08/19/21 07:20 Spasms chlorpromazine Allergy Unknown Nausea and Verified 08/19/21 07:20 [From Thorazine] Vomiting haloperidol [From Haldol] Allergy Unknown Involuntary Verified 08/19/21 07:20 Spasms olanzapine [From Zyprexa] Allergy Unknown Involuntary Verified 08/19/21 07:20 Spasms paliperidone [From Invega] Allergy Unknown Hallucinati Verified 08/19/21 07:20 ons risperidone Allergy Unknown Involuntary Verified 08/19/21 07:20 Spasms Assessment & Plan Assessment & Plan (1) Schizoaffective disorder, bipolar type: Status: Acute Code(s): F25.0 - Schizoaffective disorder, bipolar type Assessment and Plan: Continue current plan (2) Lumbar radiculopathy: Status: Acute Code(s): M54.16 - Radiculopathy, lumbar region (3) Hip pain, left: Status: Acute Code(s): M25.552 - Pain in left hip Plan 09/20/21- Improving. Transition planning with [facility]. Pt is looking at discharge to a rest home and transitioning to [facility] services in [facility]. No medication changes today. 09/21: stable on current medications. on seroquel and lithium, c/o of hip pain on ibuprofen with partial response. no behavioral concerns. no overt delusional content nor psychosis noted. 09/22/21: Continue plan of care. 09/23/21: Ortho consult-Left hip pain Pt has requested a flu shot. Discharge planning-pt considering a rest home as a temporary placement. 09/24 continue per primary treatment team. 09/25: no med changes, pt is sig less manic 09/27/21: Continue plan of care. Transitioning from [facility] of [facility] to local office. 09/28/21: Continue plan of care. Support in transition and discharge planning. Refusal of [place] discussed with [place]. Discussed other options- she will consider. 10/01/21: Continue plan of care. Fe, TIBC, ESR, CRP, RF, Vit D, CCP 10/03/21: Discontinue clonidine, mirtazapine Change diclofenic to 50 mg tid 10/06/21 Continue current regime 10/07/21 Colace 100 mg bid, high fiber diet 10/10/2021 continue current plan discharge planning 10/11/2021: Continue current regimen and plans 10/12/21: Reports leg stiffness-?EPS-Benztropine 1 mg bid to begin 10/13. Vitamin D3 10 mcg daily 10/14/21: Continue current regime-await a response from a local rest home regarding placement. 10/15/21: Latuda 20 mg HS. Discontinue Colace 10/16: Continue current regimen and plans with addition of Cymbalta 30 mg and she has been refusing Latuda 20 mg 10/17: Continue current regimen and plans and discontinue Latuda 10/18: Discontinue Cymbalta due to high risk of mood cycling. Pt declines other interventions at this time. 10/20/21: Discontinue Wellbutrin (one day trial-pt is not interested) Cymbalta 20 mg daily to begin on 10/21/21. I spent minutes with the patient and/or on the patient floor today, greater than?50% of which was spent counseling/coordinating care. Patient educated on: diagnosis, medication risk/benefits and therapeutic strategies Informed Consent: understands and further education needed Reason for contiued inpatient stay Substantial Risk for: inability to function and rapid decompensation
[2021-10-20] MEDS: Clotrimazole 1 % Cream 15 GM TUBE 1 APPL TOPICAL (20:09)
[2021-10-21 09:00] VITALS: BP 134/92; PULSE 94; RESP 16; TEMP 37.2; O2SAT 98
[2021-10-21] MEDS: Nicotine 14 MG PATCH.TD24 TRANSDERMA (10:14)
[2021-10-21] MEDS: Nicotine Polacrilex 2 MG GUM 4 MG BUCCAL ×3 (10:14→19:29)
[2021-10-21] MEDS: Cholecalciferol (Vitamin D3) 10 MCG TABLET PO (10:15)
[2021-10-21] MEDS: Gabapentin 400 MG CAPSULE 800 MG PO ×3 (10:15→19:28)
[2021-10-21] MEDS: rOPINIRole HCL 0.5 MG TABLET PO (10:15)
[2021-10-21] MEDS: Sennosides/Docusate Sodium TABLET 1 TAB PO ×2 (10:16→19:28)
[2021-10-21] MEDS: Lithium Carbonate 300 MG TABLET PO ×2 (10:16→19:29)
[2021-10-21] MEDS: Cyanocobalamin (Vitamin B-12) 100 MCG TABLET PO (10:16)
[2021-10-21] MEDS: QUEtiapine Fumarate 100 MG TABLET PO (10:16)
[2021-10-21] MEDS: DULoxetine HCl 20 MG CAPSULE.DR PO (10:16)
[2021-10-21] MEDS: amLODIPine Besylate 2.5 MG TABLET PO (10:16)
[2021-10-21] MEDS: Diclofenac Sodium Delayed Rel 50 MG TABLET.DR PO ×3 (10:16→19:29)
[2021-10-21] MEDS: Multivitamin TABLET 1 TAB PO (10:16)
[2021-10-21] MEDS: LORazepam 1 MG TABLET PO ×2 (10:32→19:29)
[2021-10-21] MEDS: Clotrimazole 1 % Cream 15 GM TUBE 1 APPL TOPICAL (10:32)
[2021-10-21 18:00] VITALS: BP 124/78; PULSE 66; RESP 16; TEMP 36.5; O2SAT 95
[2021-10-21] MEDS: rOPINIRole HCL 1 MG TABLET 2 MG PO (18:44)
[2021-10-21] MEDS: Melatonin 3 MG TABLET 9 MG PO (19:28)
[2021-10-21] MEDS: QUEtiapine Fumarate 300 MG TABLET 600 MG PO (19:30)
--- NOTE | 2021-10-21 19:31 | HO.PSYCHPN ---
Subjective Subjective Date of Service: 10/21/21 Reason For Visit: Bipolar, Schizoaffective Interim History: Pt in her room for most of the day-reading. Calm- see the Cymbalta is not making me agitated. Feeling more hope today regarding placement as she reports one of the rest homes will reconsider her admission due to other rejections- I hope they can help me . Pt reports some GERD sx-believes she drank Ensure too quickly. Medication Compliance: Yes Side effects from medications: No Attending Groups: No Review of Systems Acute medical concerns: No Medical Review of Systems: unchanged Review of Systems Psychiatric: Reports anxiety and Reports depression Mental Status Exam Mental Status Exam Patient Appearance: Appropriate Patient Orientation: Person, Place, Time and Situation Level of Consciousness: Alert Patient Behavior: Talkative and Cooperative Mood Description: Depressed Affect Description: Flat Patient Cognition Impaired: No Ability to Follow Directions: Good Speech Pattern: Spontaneous Speech Memory Description: Intact Hallucinations: None Delusions: Not Present Perceptual Disturbances: Depersonalization and Derealization Thought Process: Goal Oriented Thought Content: positive for Goal Oriented Depressive Symptoms: Increased Fatigue and Loss of Energy Judgement: Good Diagnostics Vital Signs (24Hr): Vital Signs - 24 hr 10/21/21 09:00 Temperature 98.9 F Pulse Rate 94 Respiratory Rate 16 Blood Pressure 134/92 H Pulse Oximetry 98 BMI result Body Mass Index 32.8 Labs Results: 10/07/21 08:06 Imaging Radiology Impressions: ITS Impressions Abdomen Ultrasound 09/01/21 08:59 IMPRESSION: Slightly echogenic liver. Limited evaluation of the gallbladder as the patient has recently eaten. No gallstone seen. Limited visualization of the pancreas. Hip X-Ray 09/16/21 14:47 IMPRESSION: Moderate to severe left hip arthritis. Medications Medications Current Medications Acetaminophen (Acetaminophen 325 Mg Tablet) 975 mg PO Q6H PRN PRN Reason: Headache/Pain Mild Scale (1-3) Last Admin: 10/14/21 18:18 Dose: 975 mg Documented by: Al Hydroxide/Mg Hydroxide (Magnesium Hydrox/Alum Hydrox 30 Ml Oral.Susp) 30 ml PO Q6H PRN PRN Reason: Heartburn/Nausea Last Admin: 08/22/21 05:54 Dose: 30 ml Documented by: Amlodipine Besylate (Amlodipine Besylate 2.5 Mg Tablet) 2.5 mg PO DAILY [facility]; Protocol Last Admin: 10/21/21 10:16 Dose: 2.5 mg Documented by: Artificial Tears (Artificial Tears 15 Ml Drops) 2 drop EYE-BOTH Q4H PRN PRN Reason: Dry Eyes Last Admin: 10/19/21 18:37 Dose: 2 drop Documented by: Aspirin (Aspirin Enteric Coated 325 Mg Tablet.) 650 mg PO DAILY PRN PRN Reason: headache Last Admin: 09/06/21 12:18 Dose: 650 mg Documented by: Benzocaine (Benzocaine 20 % Oral Gel 9 Gm Tube) 1 appl MUCOUS MEM QID PRN; Protocol PRN Reason: Mouth Sore Pain Last Admin: 08/31/21 03:05 Dose: 1 appl Documented by: Calcium Carbonate (Calcium Carbonate 500 Mg Tablet) 500 mg PO DAILY [facility] Last Admin: 10/21/21 10:16 Dose: 500 mg Documented by: Clotrimazole (Clotrimazole 1 % Cream 15 Gm Tube) 1 appl TOPICAL BID [facility]; Protocol Last Admin: 10/21/21 10:32 Dose: 1 appl Documented by: [place] Butter/Zinc Oxide ([place] Butter/Zinc Oxide Supp.Rect) 1 supp [place] BEDTIME PRN PRN Reason: hemorrhoid pain Last Admin: 09/13/21 21:15 Dose: 1 supp Documented by: Cyanocobalamin (Cyanocobalamin (Vitamin B-12) 100 Mcg Tablet) 100 mcg PO DAILY [facility] Last Admin: 10/21/21 10:16 Dose: 100 mcg Documented by: Diclofenac Sodium (Diclofenac Sodium Delayed Rel 50 Mg Tablet.) 50 mg PO TID [facility] Last Admin: 10/21/21 19:29 Dose: 50 mg Documented by: Diphenhydramine HCl (Diphenhydramine Hcl 25 Mg Tablet) 50 mg PO Q6H PRN PRN Reason: eps Last Admin: 09/22/21 23:48 Dose: 50 mg Documented by: Duloxetine HCl (Duloxetine Hcl 20 Mg Capsule.) 20 mg PO DAILY [facility] Last Admin: 10/21/21 10:16 Dose: 20 mg Documented by: Gabapentin (Gabapentin 400 Mg Capsule) 800 mg PO TID [facility] Last Admin: 10/21/21 19:28 Dose: 800 mg Documented by: Gabapentin (Gabapentin 100 Mg Capsule) 100 mg PO TID PRN PRN Reason: neuropathic pain Last Admin: 09/26/21 17:14 Dose: 100 mg Documented by: Hydroxyzine HCl (Hydroxyzine Hcl 25 Mg Tablet) 25 mg PO BEDTIME PRN PRN Reason: Anxiety Last Admin: 09/22/21 23:48 Dose: 25 mg Documented by: Hydroxyzine HCl (Hydroxyzine Hcl 25 Mg Tablet) 25 mg PO BEDTIME [facility] Last Admin: 10/20/21 19:18 Dose: Not Given Documented by: Lidocaine (Lidocaine 4 % Patch Adh..Patch) 1 patch TRANSDERMA DAILY [facility]; Protocol Last Admin: 10/21/21 10:32 Dose: Not Given Documented by: Lidocaine (Lidocaine 4 % Patch Adh..Patch) 1 patch TRANSDERMA DAILY [facility]; Protocol Last Admin: 10/21/21 10:32 Dose: Not Given Documented by: Nambe Carbonate (Nambe Carbonate 300 Mg Tablet) 300 mg PO BID [facility] Last Admin: 10/21/21 19:29 Dose: 300 mg Documented by: Lorazepam (Lorazepam 1 Mg Tablet) 1 mg PO TID PRN PRN Reason: anxiety/restlessness Last Admin: 10/21/21 19:29 Dose: 1 mg Documented by: Magnesium Citrate (Magnesium Citrate 300 Ml Solution) 300 ml PO DAILY PRN PRN Reason: Constipation Last Admin: 10/20/21 12:09 Dose: 300 ml Documented by: Magnesium Hydroxide (Milk Of Magnesia 30 Ml Oral.Susp) 30 ml PO DAILY PRN PRN Reason: Constipation Last Admin: 08/31/21 20:05 Dose: 30 ml Documented by: Melatonin (Melatonin 3 Mg Tablet) 9 mg PO BEDTIME [facility] Last Admin: 10/21/21 19:28 Dose: 9 mg Documented by: Multi-Ingred Cream/Lotion/Oil/Oint (Mineral Oil/Petrolatum,White 106 Gm Tube) 1 appl TOPICAL BID [facility]; Protocol Last Admin: 10/21/21 10:33 Dose: Not Given Documented by: Multivitamins/Vitamin C (Multivitamin Tablet) 1 tab PO DAILY [facility] Last Admin: 10/21/21 10:16 Dose: 1 tab Documented by: Nicotine (Nicotine 14 Mg Patch.Td24) 14 mg TRANSDERMA DAILY [facility] Last Admin: 10/21/21 10:14 Dose: 14 mg Documented by: Nicotine Polacrilex (Nicotine Polacrilex 2 Mg Gum) 4 mg BUCCAL Q1H PRN PRN Reason: Nicotine Cravings Last Admin: 10/21/21 19:29 Dose: 4 mg Documented by: Patient Own Medication (Dry Eye Relief) 1 each EYE-BOTH QID [facility] Last Admin: 10/21/21 14:44 Dose: 1 each Documented by: Psyllium Hydrophilic Mucilloid (Psyllium Seed 3.4 Gm Powd.Pack) 3.4 gm PO DAILY [facility] Last Admin: 10/21/21 10:14 Dose: 3.4 gm Documented by: Quetiapine Fumarate (Quetiapine Fumarate 200 Mg Tablet) 200 mg PO Q6H PRN PRN Reason: anxiety/restlessness Last Admin: 09/21/21 02:38 Dose: 200 mg Documented by: Quetiapine Fumarate (Quetiapine Fumarate 100 Mg Tablet) 100 mg PO DAILY [facility] Last Admin: 10/21/21 10:16 Dose: 100 mg Documented by: Quetiapine Fumarate (Quetiapine Fumarate 300 Mg Tablet) 600 mg PO BEDTIME [facility] Last Admin: 10/21/21 19:30 Dose: 600 mg Documented by: Ropinirole HCl (Ropinirole Hcl 0.5 Mg Tablet) 0.5 mg PO 0800 [facility] Last Admin: 10/21/21 10:15 Dose: 0.5 mg Documented by: Ropinirole HCl (Ropinirole Hcl 1 Mg Tablet) 2 mg PO DAILY@1900 [facility] Last Admin: 10/21/21 18:44 Dose: 2 mg Documented by: Senna/Docusate Sodium (Sennosides/Docusate Sodium Tablet) 1 tab PO BID [facility] Last Admin: 10/21/21 19:28 Dose: 1 tab Documented by: Simethicone (Simethicone 80 Mg Tab.Chew) 80 mg PO QIDWMHS PRN PRN Reason: indigestion Sodium Chloride (Sodium Chloride 0.65 % Nasal 44 Ml Sprbtl) 1 spray NOSTRIL-B Q1H PRN PRN Reason: congestion Last Admin: 10/18/21 09:40 Dose: 1 spray Documented by: Trolamine Salicylate/Aloe Vera (Trolamine Salicylate 10%/Aloe Cream 35.4 Gm) 1 appl TOPICAL TID PRN PRN Reason: sciatica Last Admin: 09/03/21 05:27 Dose: 1 appl Documented by: Vitamin D (Cholecalciferol (Vitamin D3) 10 Mcg Tablet) 10 mcg PO DAILY [facility] Last Admin: 10/21/21 10:15 Dose: 10 mcg Documented by: Allergies Allergies Allergy/AdvReac Type Severity Reaction Status Date / Time aripiprazole [From Abilify] Allergy Unknown Involuntary Verified 08/19/21 07:20 Spasms chlorpromazine Allergy Unknown Nausea and Verified 08/19/21 07:20 [From Thorazine] Vomiting haloperidol [From Haldol] Allergy Unknown Involuntary Verified 08/19/21 07:20 Spasms olanzapine [From Zyprexa] Allergy Unknown Involuntary Verified 08/19/21 07:20 Spasms paliperidone [From Invega] Allergy Unknown Hallucinati Verified 08/19/21 07:20 ons risperidone Allergy Unknown Involuntary Verified 08/19/21 07:20 Spasms Assessment & Plan Assessment & Plan (1) Schizoaffective disorder, bipolar type: Status: Acute Code(s): F25.0 - Schizoaffective disorder, bipolar type Assessment and Plan: Continue current plan (2) Lumbar radiculopathy: Status: Acute Code(s): M54.16 - Radiculopathy, lumbar region (3) Hip pain, left: Status: Acute Code(s): M25.552 - Pain in left hip Plan 09/20/21- Improving. Transition planning with [facility]. Pt is looking at discharge to a rest home and transitioning to [facility] services in [facility]. No medication changes today. 09/21: stable on current medications. on seroquel and lithium, c/o of hip pain on ibuprofen with partial response. no behavioral concerns. no overt delusional content nor psychosis noted. 09/22/21: Continue plan of care. 09/23/21: Ortho consult-Left hip pain Pt has requested a flu shot. Discharge planning-pt considering a rest home as a temporary placement. 09/24 continue per primary treatment team. 09/25: no med changes, pt is sig less manic 09/27/21: Continue plan of care. Transitioning from [facility] of [facility] to local office. 09/28/21: Continue plan of care. Support in transition and discharge planning. Refusal of Nambe discussed with Blanca. Discussed other options-she will consider. 10/01/21: Continue plan of care. Fe, TIBC, ESR, CRP, RF, Vit D, CCP 10/03/21: Discontinue clonidine, mirtazapine Change diclofenic to 50 mg tid 10/06/21 Continue current regime 10/07/21 Colace 100 mg bid, high fiber diet 10/10/2021 continue current plan discharge planning 10/11/2021: Continue current regimen and plans 10/12/21: Reports leg stiffness-?EPS-Benztropine 1 mg bid to begin 10/13. Vitamin D3 10 mcg daily 10/14/21: Continue current regime-await a response from a local rest home regarding placement. 10/15/21: Latuda 20 mg HS. Discontinue Colace 10/16: Continue current regimen and plans with addition of Cymbalta 30 mg and she has been refusing Latuda 20 mg 10/17: Continue current regimen and plans and discontinue Latuda 10/18: Discontinue Cymbalta due to high risk of mood cycling. Pt declines other interventions at this time. 10/20/21: Discontinue Wellbutrin (one day trial-pt is not interested) Cymbalta 20 mg daily to begin on 10/21/21. 10/21/21: Continue current regime. Monitor for mood changes Possible rest home option for pt-discharge planning-correction placement should this not work out. I spent minutes with the patient and/or on the patient floor today, greater than?50% of which was spent counseling/coordinating care. Patient educated on: medication risk/benefits and therapeutic strategies Informed Consent: understands and further education needed Reason for contiued inpatient stay Substantial Risk for: inability to function and rapid decompensation
[2021-10-22] MEDS: Diclofenac Sodium Delayed Rel 50 MG TABLET.DR PO ×3 (10:12→19:05)
[2021-10-22] MEDS: Gabapentin 400 MG CAPSULE 800 MG PO ×3 (10:12→21:45)
[2021-10-22] MEDS: amLODIPine Besylate 2.5 MG TABLET PO (10:12)
[2021-10-22] MEDS: Cholecalciferol (Vitamin D3) 10 MCG TABLET PO (10:13)
[2021-10-22] MEDS: Lithium Carbonate 300 MG TABLET PO ×2 (10:13→21:47)
[2021-10-22] MEDS: Sennosides/Docusate Sodium TABLET 1 TAB PO ×2 (10:13→21:47)
[2021-10-22] MEDS: QUEtiapine Fumarate 100 MG TABLET PO (10:13)
[2021-10-22] MEDS: rOPINIRole HCL 0.5 MG TABLET PO (10:13)
[2021-10-22] MEDS: DULoxetine HCl 20 MG CAPSULE.DR PO (10:13)
[2021-10-22] MEDS: Multivitamin TABLET 1 TAB PO (10:13)
[2021-10-22] MEDS: Cyanocobalamin (Vitamin B-12) 100 MCG TABLET PO (10:14)
[2021-10-22] MEDS: Nicotine 14 MG PATCH.TD24 TRANSDERMA (10:16)
[2021-10-22] MEDS: Nicotine Polacrilex 2 MG GUM 4 MG BUCCAL ×3 (10:17→18:57)
--- NOTE | 2021-10-22 12:35 | HO.PSYCHPN ---
Subjective Subjective Date of Service: 10/22/21 Reason For Visit: Bipolar, Schizoaffective Subjective Notes: Conditional Voluntary Healthcare Proxy: No Guardianship: No Medical Problems Affecting Mental Status: No Interim History: Isolative in room-reading. Hoping rest home will change their decision and allow her a trial admit. Reports she is tolerating Cymbalta-denies lability-requests [address] Kwok gave me that. Hoping she does not need to go to residential, given hip, mobility and mood mgt issues. Medication Compliance: Yes Side effects from medications: No Attending Groups: Yes Review of Systems Acute medical concerns: No Medical Review of Systems: unchanged Review of Systems Psychiatric: Reports anxiety and Reports depression Mental Status Exam Mental Status Exam Patient Appearance: Appropriate Patient Orientation: Person, Place, Time and Situation Level of Consciousness: Alert Patient Behavior: Talkative and Cooperative Mood Description: Depressed Affect Description: Flat Patient Cognition Impaired: No Ability to Follow Directions: Good Speech Pattern: Spontaneous Speech Memory Description: Intact Hallucinations: None Delusions: Not Present Perceptual Disturbances: Depersonalization and Derealization Thought Process: Goal Oriented Thought Content: positive for Goal Oriented Depressive Symptoms: Increased Fatigue and Loss of Energy Judgement: Good Diagnostics Vital Signs (24Hr): Vital Signs - 24 hr 10/21/21 18:00 Temperature 97.7 F Pulse Rate 66 Respiratory Rate 16 Blood Pressure 124/78 Pulse Oximetry 95 BMI result Body Mass Index 32.8 Labs Results: 10/07/21 08:06 Imaging Radiology Impressions: ITS Impressions Abdomen Ultrasound 09/01/21 08:59 IMPRESSION: Slightly echogenic liver. Limited evaluation of the gallbladder as the patient has recently eaten. No gallstone seen. Limited visualization of the pancreas. Hip X-Ray 09/16/21 14:47 IMPRESSION: Moderate to severe left hip arthritis. Medications Medications Current Medications Acetaminophen (Acetaminophen 325 Mg Tablet) 975 mg PO Q6H PRN PRN Reason: Headache/Pain Mild Scale (1-3) Last Admin: 10/14/21 18:18 Dose: 975 mg Documented by: Al Hydroxide/Mg Hydroxide (Magnesium Hydrox/Alum Hydrox 30 Ml Oral.Susp) 30 ml PO Q6H PRN PRN Reason: Heartburn/Nausea Last Admin: 08/22/21 05:54 Dose: 30 ml Documented by: Amlodipine Besylate (Amlodipine Besylate 2.5 Mg Tablet) 2.5 mg PO DAILY [facility]; Protocol Last Admin: 10/22/21 10:12 Dose: 2.5 mg Documented by: Artificial Tears (Artificial Tears 15 Ml Drops) 2 drop EYE-BOTH Q4H PRN PRN Reason: Dry Eyes Last Admin: 10/19/21 18:37 Dose: 2 drop Documented by: Aspirin (Aspirin Enteric Coated 325 Mg Tablet.) 650 mg PO DAILY PRN PRN Reason: headache Last Admin: 09/06/21 12:18 Dose: 650 mg Documented by: Benzocaine (Benzocaine 20 % Oral Gel 9 Gm Tube) 1 appl MUCOUS MEM QID PRN; Protocol PRN Reason: Mouth Sore Pain Last Admin: 08/31/21 03:05 Dose: 1 appl Documented by: Calcium Carbonate (Calcium Carbonate 500 Mg Tablet) 500 mg PO DAILY [facility] Last Admin: 10/22/21 10:13 Dose: 500 mg Documented by: Calcium Carbonate (Calcium Carbonate 750 Mg Tab.Chew) 750 mg PO Q4H PRN PRN Reason: Heartburn Clotrimazole (Clotrimazole 1 % Cream 15 Gm Tube) 1 appl TOPICAL BID [facility]; Protocol Last Admin: 10/22/21 10:17 Dose: Not Given Documented by: [place] Butter/Zinc Oxide ([place] Butter/Zinc Oxide Supp.Rect) 1 supp [place] BEDTIME PRN PRN Reason: hemorrhoid pain Last Admin: 09/13/21 21:15 Dose: 1 supp Documented by: Cyanocobalamin (Cyanocobalamin (Vitamin B-12) 100 Mcg Tablet) 100 mcg PO DAILY [facility] Last Admin: 10/22/21 10:14 Dose: 100 mcg Documented by: Diclofenac Sodium (Diclofenac Sodium Delayed Rel 50 Mg Tablet.) 50 mg PO TID [facility] Last Admin: 10/22/21 10:12 Dose: 50 mg Documented by: Diphenhydramine HCl (Diphenhydramine Hcl 25 Mg Tablet) 50 mg PO Q6H PRN PRN Reason: eps Last Admin: 09/22/21 23:48 Dose: 50 mg Documented by: Duloxetine HCl (Duloxetine Hcl 30 Mg Capsule.) 30 mg PO DAILY [facility] Gabapentin (Gabapentin 400 Mg Capsule) 800 mg PO TID [facility] Last Admin: 10/22/21 10:12 Dose: 800 mg Documented by: Gabapentin (Gabapentin 100 Mg Capsule) 100 mg PO TID PRN PRN Reason: neuropathic pain Last Admin: 09/26/21 17:14 Dose: 100 mg Documented by: Hydroxyzine HCl (Hydroxyzine Hcl 25 Mg Tablet) 25 mg PO BEDTIME PRN PRN Reason: Anxiety Last Admin: 09/22/21 23:48 Dose: 25 mg Documented by: Hydroxyzine HCl (Hydroxyzine Hcl 25 Mg Tablet) 25 mg PO BEDTIME [facility] Last Admin: 10/22/21 02:11 Dose: Not Given Documented by: Lidocaine (Lidocaine 4 % Patch Adh..Patch) 1 patch TRANSDERMA DAILY [facility]; Protocol Last Admin: 10/22/21 10:20 Dose: Not Given Documented by: Lidocaine (Lidocaine 4 % Patch Adh..Patch) 1 patch TRANSDERMA DAILY [facility]; Protocol Last Admin: 10/22/21 10:20 Dose: Not Given Documented by: Victoria Vera Carbonate (Victoria Vera Carbonate 300 Mg Tablet) 300 mg PO BID [facility] Last Admin: 10/22/21 10:13 Dose: 300 mg Documented by: Lorazepam (Lorazepam 1 Mg Tablet) 1 mg PO TID PRN PRN Reason: anxiety/restlessness Last Admin: 10/21/21 19:29 Dose: 1 mg Documented by: Magnesium Citrate (Magnesium Citrate 300 Ml Solution) 300 ml PO DAILY PRN PRN Reason: Constipation Last Admin: 10/20/21 12:09 Dose: 300 ml Documented by: Magnesium Hydroxide (Milk Of Magnesia 30 Ml Oral.Susp) 30 ml PO DAILY PRN PRN Reason: Constipation Last Admin: 08/31/21 20:05 Dose: 30 ml Documented by: Melatonin (Melatonin 3 Mg Tablet) 9 mg PO BEDTIME [facility] Last Admin: 10/21/21 19:28 Dose: 9 mg Documented by: Multi-Ingred Cream/Lotion/Oil/Oint (Mineral Oil/Petrolatum,White 106 Gm Tube) 1 appl TOPICAL BID [facility]; Protocol Last Admin: 10/22/21 10:20 Dose: Not Given Documented by: Multivitamins/Vitamin C (Multivitamin Tablet) 1 tab PO DAILY [facility] Last Admin: 10/22/21 10:13 Dose: 1 tab Documented by: Nicotine (Nicotine 14 Mg Patch.Td24) 14 mg TRANSDERMA DAILY [facility] Last Admin: 10/22/21 10:16 Dose: 14 mg Documented by: Nicotine Polacrilex (Nicotine Polacrilex 2 Mg Gum) 4 mg BUCCAL Q1H PRN PRN Reason: Nicotine Cravings Last Admin: 10/22/21 10:17 Dose: 4 mg Documented by: Patient Own Medication (Dry Eye Relief) 1 each EYE-BOTH QID [facility] Last Admin: 10/22/21 10:20 Dose: Not Given Documented by: Psyllium Hydrophilic Mucilloid (Psyllium Seed 3.4 Gm Powd.Pack) 3.4 gm PO DAILY [facility] Last Admin: 10/22/21 10:15 Dose: 3.4 gm Documented by: Quetiapine Fumarate (Quetiapine Fumarate 200 Mg Tablet) 200 mg PO Q6H PRN PRN Reason: anxiety/restlessness Last Admin: 09/21/21 02:38 Dose: 200 mg Documented by: Quetiapine Fumarate (Quetiapine Fumarate 100 Mg Tablet) 100 mg PO DAILY [facility] Last Admin: 10/22/21 10:13 Dose: 100 mg Documented by: Quetiapine Fumarate (Quetiapine Fumarate 300 Mg Tablet) 600 mg PO BEDTIME [facility] Last Admin: 10/21/21 19:30 Dose: 600 mg Documented by: Ropinirole HCl (Ropinirole Hcl 0.5 Mg Tablet) 0.5 mg PO 0800 [facility] Last Admin: 10/22/21 10:13 Dose: 0.5 mg Documented by: Ropinirole HCl (Ropinirole Hcl 1 Mg Tablet) 2 mg PO DAILY@1900 [facility] Last Admin: 10/21/21 18:44 Dose: 2 mg Documented by: Senna/Docusate Sodium (Sennosides/Docusate Sodium Tablet) 1 tab PO BID [facility] Last Admin: 10/22/21 10:13 Dose: 1 tab Documented by: Simethicone (Simethicone 80 Mg Tab.Chew) 80 mg PO QIDWMHS PRN PRN Reason: indigestion Sodium Chloride (Sodium Chloride 0.65 % Nasal 44 Ml Sprbtl) 1 spray NOSTRIL-B Q1H PRN PRN Reason: congestion Last Admin: 10/18/21 09:40 Dose: 1 spray Documented by: Trolamine Salicylate/Aloe Vera (Trolamine Salicylate 10%/Aloe Cream 35.4 Gm) 1 appl TOPICAL TID PRN PRN Reason: sciatica Last Admin: 09/03/21 05:27 Dose: 1 appl Documented by: Vitamin D (Cholecalciferol (Vitamin D3) 10 Mcg Tablet) 10 mcg PO DAILY [facility] Last Admin: 10/22/21 10:13 Dose: 10 mcg Documented by: Allergies Allergies Allergy/AdvReac Type Severity Reaction Status Date / Time aripiprazole [From Abilify] Allergy Unknown Involuntary Verified 08/19/21 07:20 Spasms chlorpromazine Allergy Unknown Nausea and Verified 08/19/21 07:20 [From Thorazine] Vomiting haloperidol [From Haldol] Allergy Unknown Involuntary Verified 08/19/21 07:20 Spasms olanzapine [From Zyprexa] Allergy Unknown Involuntary Verified 08/19/21 07:20 Spasms paliperidone [From Invega] Allergy Unknown Hallucinati Verified 08/19/21 07:20 ons risperidone Allergy Unknown Involuntary Verified 08/19/21 07:20 Spasms Assessment & Plan Assessment & Plan (1) Schizoaffective disorder, bipolar type: Status: Acute Code(s): F25.0 - Schizoaffective disorder, bipolar type Assessment and Plan: Continue current plan (2) Lumbar radiculopathy: Status: Acute Code(s): M54.16 - Radiculopathy, lumbar region (3) Hip pain, left: Status: Acute Code(s): M25.552 - Pain in left hip Plan 09/20/21- Improving. Transition planning with [facility]. Pt is looking at discharge to a rest home and transitioning to [facility] services in [facility]. No medication changes today. 09/21: stable on current medications. on seroquel and lithium, c/o of hip pain on ibuprofen with partial response. no behavioral concerns. no overt delusional content nor psychosis noted. 09/22/21: Continue plan of care. 09/23/21: Ortho consult-Left hip pain Pt has requested a flu shot. Discharge planning-pt considering a rest home as a temporary placement. 09/24 continue per primary treatment team. 09/25: no med changes, pt is sig less manic 09/27/21: Continue plan of care. Transitioning from [facility] of [facility] to local office. 09/28/21: Continue plan of care. Support in transition and discharge planning. Refusal of Victoria Vera discussed with Blanca. Discussed other options-she will consider. 10/01/21: Continue plan of care. Fe, TIBC, ESR, CRP, RF, Vit D, CCP 10/03/21: Discontinue clonidine, mirtazapine Change diclofenic to 50 mg tid 10/06/21 Continue current regime 10/07/21 Colace 100 mg bid, high fiber diet 10/10/2021 continue current plan discharge planning 10/11/2021: Continue current regimen and plans 10/12/21: Reports leg stiffness-?EPS-Benztropine 1 mg bid to begin 10/13. Vitamin D3 10 mcg daily 10/14/21: Continue current regime-await a response from a local rest home regarding placement. 10/15/21: Latuda 20 mg HS. Discontinue Colace 10/16: Continue current regimen and plans with addition of Cymbalta 30 mg and she has been refusing Latuda 20 mg 10/17: Continue current regimen and plans and discontinue Latuda 10/18: Discontinue Cymbalta due to high risk of mood cycling. Pt declines other interventions at this time. 10/20/21: Discontinue Wellbutrin (one day trial-pt is not interested) Cymbalta 20 mg daily to begin on 10/21/21. 10/21/21: Continue current regime. Monitor for mood changes Possible rest home option for pt-discharge planning-residential placement should this not work out. 10/22/21: Increase Cymbalta to 30 mg daily I spent minutes with the patient and/or on the patient floor today, greater than?50% of which was spent counseling/coordinating care. Patient educated on: medication risk/benefits Informed Consent: understands Reason for contiued inpatient stay Substantial Risk for: inability to function and rapid decompensation
[2021-10-22] MEDS: Magnesium Citrate 300 ML SOLUTION PO (18:52)
[2021-10-22] MEDS: rOPINIRole HCL 1 MG TABLET 2 MG PO (19:04)
[2021-10-22 19:20] VITALS: BP 104/60; PULSE 87; TEMP 36.2
[2021-10-22] MEDS: Melatonin 3 MG TABLET 9 MG PO (21:45)
[2021-10-22] MEDS: QUEtiapine Fumarate 300 MG TABLET 600 MG PO (21:46)
[2021-10-22] MEDS: hydrOXYzine HCL 25 MG TABLET PO (21:47)
[2021-10-22] MEDS: LORazepam 1 MG TABLET PO (21:53)
[2021-10-23 06:00] VITALS: BP 135/80; PULSE 88; RESP 16; TEMP 36.7; O2SAT 96
[2021-10-23] MEDS: Nicotine Polacrilex 2 MG GUM 4 MG BUCCAL ×3 (08:32→20:58)
[2021-10-23] MEDS: Cholecalciferol (Vitamin D3) 10 MCG TABLET PO (10:01)
[2021-10-23] MEDS: Diclofenac Sodium Delayed Rel 50 MG TABLET.DR PO ×3 (10:01→19:52)
[2021-10-23] MEDS: Lithium Carbonate 300 MG TABLET PO ×2 (10:01→20:51)
[2021-10-23] MEDS: DULoxetine HCl 30 MG CAPSULE.DR PO (10:01)
[2021-10-23] MEDS: rOPINIRole HCL 0.5 MG TABLET PO (10:01)
[2021-10-23] MEDS: Gabapentin 400 MG CAPSULE 800 MG PO ×3 (10:02→20:52)
[2021-10-23] MEDS: amLODIPine Besylate 2.5 MG TABLET PO (10:02)
[2021-10-23] MEDS: Cyanocobalamin (Vitamin B-12) 100 MCG TABLET PO (10:02)
[2021-10-23] MEDS: Nicotine 14 MG PATCH.TD24 TRANSDERMA ×2 (10:04→10:06)
[2021-10-23] MEDS: Sennosides/Docusate Sodium TABLET 1 TAB PO ×2 (10:06→20:53)
[2021-10-23] MEDS: QUEtiapine Fumarate 100 MG TABLET PO (10:07)
--- NOTE | 2021-10-23 15:31 | P.PNPSI_ITS ---
Subjective Subjective Date of Service: 10/23/21 Reason For Visit: Bipolar, Schizoaffective Interim History: Blanca was calmly reading a book which she states she enjoys. Her room was somewhat chaotic. Staff report that she is significantly better than she was on admission. Medication Compliance: Yes Side effects from medications: No Mental Status Exam Mental Status Exam Patient Appearance: Appropriate Patient Orientation: Person, Place, Time and Situation Level of Consciousness: Alert Patient Behavior: Talkative and Cooperative Mood Description: Depressed Affect Description: Flat Patient Cognition Impaired: No Ability to Follow Directions: Good Speech Pattern: Spontaneous Speech Memory Description: Intact Hallucinations: None Delusions: Not Present Perceptual Disturbances: Depersonalization and Derealization Thought Process: Goal Oriented Thought Content: positive for Goal Oriented Depressive Symptoms: Increased Fatigue and Loss of Energy Judgement: Good Diagnostics Vital Signs (24Hr): Vital Signs - 24 hr 10/22/21 19:20 10/23/21 06:00 Temperature 97.1 F 98.0 F Pulse Rate 87 88 Respiratory Rate 16 Blood Pressure 104/60 135/80 Pulse Oximetry 96 BMI result Body Mass Index 32.8 Labs Results: 10/07/21 08:06 Imaging Radiology Impressions: ITS Impressions Abdomen Ultrasound 09/01/21 08:59 IMPRESSION: Slightly echogenic liver. Limited evaluation of the gallbladder as the patient has recently eaten. No gallstone seen. Limited visualization of the pancreas. Hip X-Ray 09/16/21 14:47 IMPRESSION: Moderate to severe left hip arthritis. Medications Medications Current Medications Acetaminophen (Acetaminophen 325 Mg Tablet) 975 mg PO Q6H PRN PRN Reason: Headache/Pain Mild Scale (1-3) Last Admin: 10/14/21 18:18 Dose: 975 mg Documented by: Al Hydroxide/Mg Hydroxide (Magnesium Hydrox/Alum Hydrox 30 Ml Oral.Susp) 30 ml PO Q6H PRN PRN Reason: Heartburn/Nausea Last Admin: 08/22/21 05:54 Dose: 30 ml Documented by: Amlodipine Besylate (Amlodipine Besylate 2.5 Mg Tablet) 2.5 mg PO DAILY [facility]; Protocol Last Admin: 10/23/21 10:02 Dose: 2.5 mg Documented by: Artificial Tears (Artificial Tears 15 Ml Drops) 2 drop EYE-BOTH Q4H PRN PRN Reason: Dry Eyes Last Admin: 10/19/21 18:37 Dose: 2 drop Documented by: Aspirin (Aspirin Enteric Coated 325 Mg Tablet.) 650 mg PO DAILY PRN PRN Reason: headache Last Admin: 09/06/21 12:18 Dose: 650 mg Documented by: Benzocaine (Benzocaine 20 % Oral Gel 9 Gm Tube) 1 appl MUCOUS MEM QID PRN; Protocol PRN Reason: Mouth Sore Pain Last Admin: 08/31/21 03:05 Dose: 1 appl Documented by: Calcium Carbonate (Calcium Carbonate 500 Mg Tablet) 500 mg PO DAILY [facility] Last Admin: 10/23/21 10:02 Dose: 500 mg Documented by: Calcium Carbonate (Calcium Carbonate 750 Mg Tab.Chew) 750 mg PO Q4H PRN PRN Reason: Heartburn Clotrimazole (Clotrimazole 1 % Cream 15 Gm Tube) 1 appl TOPICAL BID [facility]; Protocol Last Admin: 10/23/21 10:02 Dose: Not Given Documented by: [place] Butter/Zinc Oxide ([place] Butter/Zinc Oxide Supp.Rect) 1 supp [place] BEDTIME PRN PRN Reason: hemorrhoid pain Last Admin: 09/13/21 21:15 Dose: 1 supp Documented by: Cyanocobalamin (Cyanocobalamin (Vitamin B-12) 100 Mcg Tablet) 100 mcg PO DAILY [facility] Last Admin: 10/23/21 10:02 Dose: 100 mcg Documented by: Diclofenac Sodium (Diclofenac Sodium Delayed Rel 50 Mg Tablet.) 50 mg PO TID [facility] Last Admin: 10/23/21 14:21 Dose: 50 mg Documented by: Diphenhydramine HCl (Diphenhydramine Hcl 25 Mg Tablet) 50 mg PO Q6H PRN PRN Reason: eps Last Admin: 09/22/21 23:48 Dose: 50 mg Documented by: Duloxetine HCl (Duloxetine Hcl 30 Mg Capsule.) 30 mg PO DAILY [facility] Last Admin: 10/23/21 10:01 Dose: 30 mg Documented by: Gabapentin (Gabapentin 400 Mg Capsule) 800 mg PO TID [facility] Last Admin: 10/23/21 14:21 Dose: 800 mg Documented by: Gabapentin (Gabapentin 100 Mg Capsule) 100 mg PO TID PRN PRN Reason: neuropathic pain Last Admin: 09/26/21 17:14 Dose: 100 mg Documented by: Hydroxyzine HCl (Hydroxyzine Hcl 25 Mg Tablet) 25 mg PO BEDTIME PRN PRN Reason: Anxiety Last Admin: 09/22/21 23:48 Dose: 25 mg Documented by: Hydroxyzine HCl (Hydroxyzine Hcl 25 Mg Tablet) 25 mg PO BEDTIME [facility] Last Admin: 10/22/21 21:47 Dose: 25 mg Documented by: Lidocaine (Lidocaine 4 % Patch Adh..Patch) 1 patch TRANSDERMA DAILY [facility]; Protocol Last Admin: 10/23/21 10:03 Dose: Not Given Documented by: Lidocaine (Lidocaine 4 % Patch Adh..Patch) 1 patch TRANSDERMA DAILY [facility]; Protocol Last Admin: 10/23/21 10:03 Dose: Not Given Documented by: [place] Carbonate ([place] Carbonate 300 Mg Tablet) 300 mg PO BID [facility] Last Admin: 10/23/21 10:01 Dose: 300 mg Documented by: Lorazepam (Lorazepam 1 Mg Tablet) 1 mg PO TID PRN PRN Reason: anxiety/restlessness Last Admin: 10/22/21 21:53 Dose: 1 mg Documented by: Magnesium Citrate (Magnesium Citrate 300 Ml Solution) 300 ml PO DAILY PRN PRN Reason: Constipation Last Admin: 10/22/21 18:52 Dose: 300 ml Documented by: Magnesium Hydroxide (Milk Of Magnesia 30 Ml Oral.Susp) 30 ml PO DAILY PRN PRN Reason: Constipation Last Admin: 08/31/21 20:05 Dose: 30 ml Documented by: Melatonin (Melatonin 3 Mg Tablet) 9 mg PO BEDTIME [facility] Last Admin: 10/22/21 21:45 Dose: 9 mg Documented by: Multi-Ingred Cream/Lotion/Oil/Oint (Mineral Oil/Petrolatum,White 106 Gm Tube) 1 appl TOPICAL BID [facility]; Protocol Last Admin: 10/23/21 10:03 Dose: Not Given Documented by: Multivitamins/Vitamin C (Multivitamin Tablet) 1 tab PO DAILY [facility] Last Admin: 10/23/21 10:03 Dose: Not Given Documented by: Nicotine (Nicotine 14 Mg Patch.Td24) 14 mg TRANSDERMA DAILY [facility] Last Admin: 10/23/21 10:06 Dose: 14 mg Documented by: Nicotine Polacrilex (Nicotine Polacrilex 2 Mg Gum) 4 mg BUCCAL Q1H PRN PRN Reason: Nicotine Cravings Last Admin: 10/23/21 14:22 Dose: 4 mg Documented by: Patient Own Medication (Dry Eye Relief) 1 each EYE-BOTH QID [facility] Last Admin: 10/23/21 14:21 Dose: 1 each Documented by: Psyllium Hydrophilic Mucilloid (Psyllium Seed 3.4 Gm Powd.Pack) 3.4 gm PO DAILY [facility] Last Admin: 10/23/21 10:06 Dose: 3.4 gm Documented by: Quetiapine Fumarate (Quetiapine Fumarate 200 Mg Tablet) 200 mg PO Q6H PRN PRN Reason: anxiety/restlessness Last Admin: 09/21/21 02:38 Dose: 200 mg Documented by: Quetiapine Fumarate (Quetiapine Fumarate 100 Mg Tablet) 100 mg PO DAILY [facility] Last Admin: 10/23/21 10:07 Dose: 100 mg Documented by: Quetiapine Fumarate (Quetiapine Fumarate 300 Mg Tablet) 600 mg PO BEDTIME [facility] Last Admin: 10/22/21 21:46 Dose: 600 mg Documented by: Ropinirole HCl (Ropinirole Hcl 0.5 Mg Tablet) 0.5 mg PO 0800 [facility] Last Admin: 10/23/21 10:01 Dose: 0.5 mg Documented by: Ropinirole HCl (Ropinirole Hcl 1 Mg Tablet) 2 mg PO DAILY@1900 [facility] Last Admin: 10/22/21 19:04 Dose: 2 mg Documented by: Senna/Docusate Sodium (Sennosides/Docusate Sodium Tablet) 1 tab PO BID [facility] Last Admin: 10/23/21 10:06 Dose: 1 tab Documented by: Simethicone (Simethicone 80 Mg Tab.Chew) 80 mg PO QIDWMHS PRN PRN Reason: indigestion Sodium Chloride (Sodium Chloride 0.65 % Nasal 44 Ml Sprbtl) 1 spray NOSTRIL-B Q1H PRN PRN Reason: congestion Last Admin: 10/18/21 09:40 Dose: 1 spray Documented by: Trolamine Salicylate/Aloe Vera (Trolamine Salicylate 10%/Aloe Cream 35.4 Gm) 1 appl TOPICAL TID PRN PRN Reason: sciatica Last Admin: 09/03/21 05:27 Dose: 1 appl Documented by: Vitamin D (Cholecalciferol (Vitamin D3) 10 Mcg Tablet) 10 mcg PO DAILY [facility] Last Admin: 10/23/21 10:01 Dose: 10 mcg Documented by: Allergies Allergies Allergy/AdvReac Type Severity Reaction Status Date / Time aripiprazole [From Abilify] Allergy Unknown Involuntary Verified 08/19/21 07:20 Spasms chlorpromazine Allergy Unknown Nausea and Verified 08/19/21 07:20 [From Thorazine] Vomiting haloperidol [From Haldol] Allergy Unknown Involuntary Verified 08/19/21 07:20 Spasms olanzapine [From Zyprexa] Allergy Unknown Involuntary Verified 08/19/21 07:20 Spasms paliperidone [From Invega] Allergy Unknown Hallucinati Verified 08/19/21 07:20 ons risperidone Allergy Unknown Involuntary Verified 08/19/21 07:20 Spasms Assessment & Plan Assessment & Plan (1) Schizoaffective disorder, bipolar type: Status: Acute Code(s): F25.0 - Schizoaffective disorder, bipolar type Assessment and Plan: Continue current plan (2) Lumbar radiculopathy: Status: Acute Code(s): M54.16 - Radiculopathy, lumbar region (3) Hip pain, left: Status: Acute Code(s): M25.552 - Pain in left hip Plan 09/20/21- Improving. Transition planning with [facility]. Pt is looking at discharge to a rest home and transitioning to [facility] services in [facility]. No medication changes today. 09/21: stable on current medications. on seroquel and lithium, c/o of hip pain on ibuprofen with partial response. no behavioral concerns. no overt delusional content nor psychosis noted. 09/22/21: Continue plan of care. 09/23/21: Ortho consult-Left hip pain Pt has requested a flu shot. Discharge planning-pt considering a rest home as a temporary placement. 09/24 continue per primary treatment team. 09/25: no med changes, pt is sig less manic 09/27/21: Continue plan of care. Transitioning from [facility] to local office. 09/28/21: Continue plan of care. Support in transition and discharge planning. Refusal of [place] discussed with Blanca. Discussed other options- she will consider. 10/01/21: Continue plan of care. Fe, TIBC, ESR, CRP, RF, Vit D, CCP 10/03/21: Discontinue clonidine, mirtazapine Change diclofenic to 50 mg tid 10/06/21 Continue current regime 10/07/21 Colace 100 mg bid, high fiber diet 10/10/2021 continue current plan discharge planning 10/11/2021: Continue current regimen and plans 10/12/21: Reports leg stiffness-?EPS-Benztropine 1 mg bid to begin 10/13. Vitamin D3 10 mcg daily 10/14/21: Continue current regime-await a response from a local rest home regarding placement. 10/15/21: Latuda 20 mg HS. Discontinue Colace 10/16: Continue current regimen and plans with addition of Cymbalta 30 mg and she has been refusing Latuda 20 mg 10/17: Continue current regimen and plans and discontinue Latuda 10/18: Discontinue Cymbalta due to high risk of mood cycling. Pt declines other interventions at this time. 10/20/21: Discontinue Wellbutrin (one day trial-pt is not interested) Cymbalta 20 mg daily to begin on 10/21/21. 10/21/21: Continue current regime. Monitor for mood changes Possible rest home option for pt-discharge planning-assisted placement should this not work out. 10/22/21: Increase Cymbalta to 30 mg daily 10/23/21: No change to the above I spent minutes with the patient and/or on the patient floor today, greater than?50% of which was spent counseling/coordinating care. Patient educated on: diagnosis and medication risk/benefits Informed Consent: further education needed Reason for contiued inpatient stay Substantial Risk for: rapid decompensation
[2021-10-23 17:05] VITALS: BP 132/88; PULSE 90; TEMP 36.8
[2021-10-23] MEDS: rOPINIRole HCL 1 MG TABLET 2 MG PO (19:53)
[2021-10-23] MEDS: Magnesium Citrate 300 ML SOLUTION PO (19:54)
[2021-10-23] MEDS: Melatonin 3 MG TABLET 9 MG PO (20:51)
[2021-10-23] MEDS: hydrOXYzine HCL 25 MG TABLET PO (20:51)
[2021-10-23] MEDS: QUEtiapine Fumarate 300 MG TABLET 600 MG PO (20:52)
[2021-10-23] MEDS: LORazepam 1 MG TABLET PO (20:58)
[2021-10-24] MEDS: Nicotine 14 MG PATCH.TD24 TRANSDERMA (08:26)
[2021-10-24] MEDS: Sennosides/Docusate Sodium TABLET 1 TAB PO ×2 (08:27→20:52)
[2021-10-24] MEDS: Cholecalciferol (Vitamin D3) 10 MCG TABLET PO (08:27)
[2021-10-24] MEDS: amLODIPine Besylate 2.5 MG TABLET PO (08:27)
[2021-10-24] MEDS: QUEtiapine Fumarate 100 MG TABLET PO (08:27)
[2021-10-24] MEDS: Multivitamin TABLET 1 TAB PO (08:27)
[2021-10-24] MEDS: Diclofenac Sodium Delayed Rel 50 MG TABLET.DR PO ×3 (08:27→19:16)
[2021-10-24] MEDS: Cyanocobalamin (Vitamin B-12) 100 MCG TABLET PO (08:27)
[2021-10-24] MEDS: Lithium Carbonate 300 MG TABLET PO ×2 (08:27→20:51)
[2021-10-24] MEDS: DULoxetine HCl 30 MG CAPSULE.DR PO (08:27)
[2021-10-24] MEDS: rOPINIRole HCL 0.5 MG TABLET PO (08:27)
[2021-10-24] MEDS: Gabapentin 400 MG CAPSULE 800 MG PO ×3 (08:27→20:51)
[2021-10-24 08:33] VITALS: BP 143/93; PULSE 73
[2021-10-24] MEDS: Nicotine Polacrilex 2 MG GUM 4 MG BUCCAL ×3 (08:47→17:42)
[2021-10-24] MEDS: Artificial Tears 15 ML DROPS 2 DROP EYE-BOTH (08:47)
--- NOTE | 2021-10-24 12:34 | HO.PSYCHPN ---
Subjective Subjective Date of Service: 10/24/21 Reason For Visit: Bipolar, Schizoaffective Interim History: Blanca requests colace and TUMS. She has been a bit more visible on the unit and in behavioral control Medication Compliance: Yes Side effects from medications: No Attending Groups: No Review of Systems Acute medical concerns: No Mental Status Exam Mental Status Exam Patient Appearance: Appropriate Patient Orientation: Person, Place, Time and Situation Level of Consciousness: Alert Patient Behavior: Talkative and Cooperative Mood Description: Depressed Affect Description: Flat Patient Cognition Impaired: No Ability to Follow Directions: Good Speech Pattern: Spontaneous Speech Memory Description: Intact Hallucinations: None Delusions: Not Present Perceptual Disturbances: Depersonalization and Derealization Thought Process: Goal Oriented Thought Content: positive for Goal Oriented Depressive Symptoms: Increased Fatigue and Loss of Energy Judgement: Good Diagnostics Vital Signs (24Hr): Vital Signs - 24 hr 10/23/21 17:05 10/24/21 08:33 Temperature 98.2 F Pulse Rate 90 73 Blood Pressure 132/88 143/93 H BMI result Body Mass Index 32.8 Labs Results: 10/07/21 08:06 Imaging Radiology Impressions: ITS Impressions Abdomen Ultrasound 09/01/21 08:59 IMPRESSION: Slightly echogenic liver. Limited evaluation of the gallbladder as the patient has recently eaten. No gallstone seen. Limited visualization of the pancreas. Hip X-Ray 09/16/21 14:47 IMPRESSION: Moderate to severe left hip arthritis. Medications Medications Current Medications Acetaminophen (Acetaminophen 325 Mg Tablet) 975 mg PO Q6H PRN PRN Reason: Headache/Pain Mild Scale (1-3) Last Admin: 10/14/21 18:18 Dose: 975 mg Documented by: Al Hydroxide/Mg Hydroxide (Magnesium Hydrox/Alum Hydrox 30 Ml Oral.Susp) 30 ml PO Q6H PRN PRN Reason: Heartburn/Nausea Last Admin: 08/22/21 05:54 Dose: 30 ml Documented by: Amlodipine Besylate (Amlodipine Besylate 2.5 Mg Tablet) 2.5 mg PO DAILY [facility]; Protocol Last Admin: 10/24/21 08:27 Dose: 2.5 mg Documented by: Artificial Tears (Artificial Tears 15 Ml Drops) 2 drop EYE-BOTH Q4H PRN PRN Reason: Dry Eyes Last Admin: 10/24/21 08:47 Dose: 2 drop Documented by: Aspirin (Aspirin Enteric Coated 325 Mg Tablet.) 650 mg PO DAILY PRN PRN Reason: headache Last Admin: 09/06/21 12:18 Dose: 650 mg Documented by: Benzocaine (Benzocaine 20 % Oral Gel 9 Gm Tube) 1 appl MUCOUS MEM QID PRN; Protocol PRN Reason: Mouth Sore Pain Last Admin: 08/31/21 03:05 Dose: 1 appl Documented by: Calcium Carbonate (Calcium Carbonate 500 Mg Tablet) 500 mg PO DAILY [facility] Last Admin: 10/24/21 08:27 Dose: 500 mg Documented by: Calcium Carbonate (Calcium Carbonate 750 Mg Tab.Chew) 750 mg PO Q4H PRN PRN Reason: Heartburn Calcium Carbonate (Calcium Carbonate 750 Mg Tab.Chew) 750 mg PO Q4H PRN PRN Reason: Dyspepsia Clotrimazole (Clotrimazole 1 % Cream 15 Gm Tube) 1 appl TOPICAL BID [facility]; Protocol Last Admin: 10/24/21 08:31 Dose: Not Given Documented by: [place] Butter/Zinc Oxide ([place] Butter/Zinc Oxide Supp.Rect) 1 supp [place] BEDTIME PRN PRN Reason: hemorrhoid pain Last Admin: 09/13/21 21:15 Dose: 1 supp Documented by: Cyanocobalamin (Cyanocobalamin (Vitamin B-12) 100 Mcg Tablet) 100 mcg PO DAILY [facility] Last Admin: 10/24/21 08:27 Dose: 100 mcg Documented by: Diclofenac Sodium (Diclofenac Sodium Delayed Rel 50 Mg Tablet.) 50 mg PO TID [facility] Last Admin: 10/24/21 08:27 Dose: 50 mg Documented by: Diphenhydramine HCl (Diphenhydramine Hcl 25 Mg Tablet) 50 mg PO Q6H PRN PRN Reason: eps Last Admin: 09/22/21 23:48 Dose: 50 mg Documented by: Docusate Sodium (Docusate Sodium 100 Mg Capsule) 100 mg PO BID PRN PRN Reason: Constipation Duloxetine HCl (Duloxetine Hcl 30 Mg Capsule.) 30 mg PO DAILY [facility] Last Admin: 10/24/21 08:27 Dose: 30 mg Documented by: Gabapentin (Gabapentin 400 Mg Capsule) 800 mg PO TID [facility] Last Admin: 10/24/21 08:27 Dose: 800 mg Documented by: Gabapentin (Gabapentin 100 Mg Capsule) 100 mg PO TID PRN PRN Reason: neuropathic pain Last Admin: 02/06/22 17:14 Dose: 100 mg Documented by: Hydroxyzine HCl (Hydroxyzine Hcl 25 Mg Tablet) 25 mg PO BEDTIME PRN PRN Reason: Anxiety Last Admin: 09/22/21 23:48 Dose: 25 mg Documented by: Hydroxyzine HCl (Hydroxyzine Hcl 25 Mg Tablet) 25 mg PO BEDTIME [facility] Last Admin: 10/23/21 20:51 Dose: 25 mg Documented by: Lidocaine (Lidocaine 4 % Patch Adh..Patch) 1 patch TRANSDERMA DAILY [facility]; Protocol Last Admin: 10/24/21 08:31 Dose: Not Given Documented by: Lidocaine (Lidocaine 4 % Patch Adh..Patch) 1 patch TRANSDERMA DAILY [facility]; Protocol Last Admin: 10/24/21 08:31 Dose: Not Given Documented by: [place] Carbonate ([place] Carbonate 300 Mg Tablet) 300 mg PO BID [facility] Last Admin: 10/24/21 08:27 Dose: 300 mg Documented by: Lorazepam (Lorazepam 1 Mg Tablet) 1 mg PO TID PRN PRN Reason: anxiety/restlessness Last Admin: 10/23/21 20:58 Dose: 1 mg Documented by: Magnesium Citrate (Magnesium Citrate 300 Ml Solution) 300 ml PO DAILY PRN PRN Reason: Constipation Last Admin: 10/23/21 19:54 Dose: 300 ml Documented by: Magnesium Hydroxide (Milk Of Magnesia 30 Ml Oral.Susp) 30 ml PO DAILY PRN PRN Reason: Constipation Last Admin: 08/31/21 20:05 Dose: 30 ml Documented by: Melatonin (Melatonin 3 Mg Tablet) 9 mg PO BEDTIME [facility] Last Admin: 10/23/21 20:51 Dose: 9 mg Documented by: Multi-Ingred Cream/Lotion/Oil/Oint (Mineral Oil/Petrolatum,White 106 Gm Tube) 1 appl TOPICAL BID [facility]; Protocol Last Admin: 10/24/21 08:31 Dose: Not Given Documented by: Multivitamins/Vitamin C (Multivitamin Tablet) 1 tab PO DAILY [facility] Last Admin: 10/24/21 08:27 Dose: 1 tab Documented by: Nicotine (Nicotine 14 Mg Patch.Td24) 14 mg TRANSDERMA DAILY [facility] Last Admin: 10/24/21 08:26 Dose: 14 mg Documented by: Nicotine Polacrilex (Nicotine Polacrilex 2 Mg Gum) 4 mg BUCCAL Q1H PRN PRN Reason: Nicotine Cravings Last Admin: 10/24/21 08:47 Dose: 4 mg Documented by: Patient Own Medication (Dry Eye Relief) 1 each EYE-BOTH QID [facility] Last Admin: 10/24/21 08:32 Dose: Not Given Documented by: Psyllium Hydrophilic Mucilloid (Psyllium Seed 3.4 Gm Powd.Pack) 3.4 gm PO DAILY [facility] Last Admin: 10/24/21 08:27 Dose: 3.4 gm Documented by: Quetiapine Fumarate (Quetiapine Fumarate 200 Mg Tablet) 200 mg PO Q6H PRN PRN Reason: anxiety/restlessness Last Admin: 09/21/21 02:38 Dose: 200 mg Documented by: Quetiapine Fumarate (Quetiapine Fumarate 100 Mg Tablet) 100 mg PO DAILY [facility] Last Admin: 10/24/21 08:27 Dose: 100 mg Documented by: Quetiapine Fumarate (Quetiapine Fumarate 300 Mg Tablet) 600 mg PO BEDTIME [facility] Last Admin: 10/23/21 20:52 Dose: 600 mg Documented by: Ropinirole HCl (Ropinirole Hcl 0.5 Mg Tablet) 0.5 mg PO 0800 [facility] Last Admin: 10/24/21 08:27 Dose: 0.5 mg Documented by: Ropinirole HCl (Ropinirole Hcl 1 Mg Tablet) 2 mg PO DAILY@1900 [facility] Last Admin: 10/23/21 19:53 Dose: 2 mg Documented by: Senna/Docusate Sodium (Sennosides/Docusate Sodium Tablet) 1 tab PO BID [facility] Last Admin: 10/24/21 08:27 Dose: 1 tab Documented by: Simethicone (Simethicone 80 Mg Tab.Chew) 80 mg PO QIDWMHS PRN PRN Reason: indigestion Sodium Chloride (Sodium Chloride 0.65 % Nasal 44 Ml Sprbtl) 1 spray NOSTRIL-B Q1H PRN PRN Reason: congestion Last Admin: 10/18/21 09:40 Dose: 1 spray Documented by: Trolamine Salicylate/Aloe Vera (Trolamine Salicylate 10%/Aloe Cream 35.4 Gm) 1 appl TOPICAL TID PRN PRN Reason: sciatica Last Admin: 09/03/21 05:27 Dose: 1 appl Documented by: Vitamin D (Cholecalciferol (Vitamin D3) 10 Mcg Tablet) 10 mcg PO DAILY [facility] Last Admin: 10/24/21 08:27 Dose: 10 mcg Documented by: Allergies Allergies Allergy/AdvReac Type Severity Reaction Status Date / Time aripiprazole [From Abilify] Allergy Unknown Involuntary Verified 08/19/21 07:20 Spasms chlorpromazine Allergy Unknown Nausea and Verified 08/19/21 07:20 [From Thorazine] Vomiting haloperidol [From Haldol] Allergy Unknown Involuntary Verified 08/19/21 07:20 Spasms olanzapine [From Zyprexa] Allergy Unknown Involuntary Verified 08/19/21 07:20 Spasms paliperidone [From Invega] Allergy Unknown Hallucinati Verified 08/19/21 07:20 ons risperidone Allergy Unknown Involuntary Verified 08/19/21 07:20 Spasms Assessment & Plan Assessment & Plan (1) Schizoaffective disorder, bipolar type: Status: Acute Code(s): F25.0 - Schizoaffective disorder, bipolar type Assessment and Plan: Continue current plan (2) Lumbar radiculopathy: Status: Acute Code(s): M54.16 - Radiculopathy, lumbar region (3) Hip pain, left: Status: Acute Code(s): M25.552 - Pain in left hip Plan 09/20/21- Improving. Transition planning with [facility]. Pt is looking at discharge to a rest home and transitioning to [facility] services in [facility]. No medication changes today. 09/21: stable on current medications. on seroquel and lithium, c/o of hip pain on ibuprofen with partial response. no behavioral concerns. no overt delusional content nor psychosis noted. 09/22/21: Continue plan of care. 09/23/21: Ortho consult-Left hip pain Pt has requested a flu shot. Discharge planning-pt considering a rest home as a temporary placement. 09/24 continue per primary treatment team. 09/25: no med changes, pt is sig less manic 09/27/21: Continue plan of care. Transitioning from [facility] to local office. 09/28/21: Continue plan of care. Support in transition and discharge planning. Refusal of [place] discussed with Blanca. Discussed other options-she will consider. 10/01/21: Continue plan of care. Fe, TIBC, ESR, CRP, RF, Vit D, CCP 10/03/21: Discontinue clonidine, mirtazapine Change diclofenic to 50 mg tid 10/06/21 Continue current regime 10/07/21 Colace 100 mg bid, high fiber diet 10/10/2021 continue current plan discharge planning 10/11/2021: Continue current regimen and plans 10/12/21: Reports leg stiffness-?EPS-Benztropine 1 mg bid to begin 10/13. Vitamin D3 10 mcg daily 10/14/21: Continue current regime-await a response from a local rest home regarding placement. 10/15/21: Latuda 20 mg HS. Discontinue Colace 10/16: Continue current regimen and plans with addition of Cymbalta 30 mg and she has been refusing Latuda 20 mg 10/17: Continue current regimen and plans and discontinue Latuda 10/18: Discontinue Cymbalta due to high risk of mood cycling. Pt declines other interventions at this time. 10/20/21: Discontinue Wellbutrin (one day trial-pt is not interested) Cymbalta 20 mg daily to begin on 10/21/21. 10/21/21: Continue current regime. Monitor for mood changes Possible rest home option for pt-discharge planning-[facility] placement should this not work out. 10/22/21: Increase Cymbalta to 30 mg daily 10/23/21: No change to the above 10/24/21: No change I spent minutes with the patient and/or on the patient floor today, greater than?50% of which was spent counseling/coordinating care. Patient educated on: diagnosis and medication risk/benefits Informed Consent: further education needed Reason for contiued inpatient stay Substantial Risk for: rapid decompensation
[2021-10-24] MEDS: Calcium Carbonate 750 MG TAB.CHEW PO ×2 (14:36→19:28)
[2021-10-24 18:00] VITALS: BP 113/75; PULSE 77; TEMP 36.9
[2021-10-24] MEDS: rOPINIRole HCL 1 MG TABLET 2 MG PO (19:16)
[2021-10-24] MEDS: QUEtiapine Fumarate 300 MG TABLET 600 MG PO (20:52)
[2021-10-24] MEDS: Melatonin 3 MG TABLET 9 MG PO (20:52)
[2021-10-24] MEDS: hydrOXYzine HCL 25 MG TABLET PO (20:52)
[2021-10-24] MEDS: LORazepam 1 MG TABLET PO (20:57)
[2021-10-25 06:00] VITALS: BP 135/78; PULSE 73; TEMP 36.4; O2SAT 99
[2021-10-25] MEDS: DULoxetine HCl 30 MG CAPSULE.DR PO (09:19)
[2021-10-25] MEDS: Cyanocobalamin (Vitamin B-12) 100 MCG TABLET PO (09:19)
[2021-10-25] MEDS: Cholecalciferol (Vitamin D3) 10 MCG TABLET PO (09:20)
[2021-10-25] MEDS: Diclofenac Sodium Delayed Rel 50 MG TABLET.DR PO ×3 (09:20→20:16)
[2021-10-25] MEDS: Gabapentin 400 MG CAPSULE 800 MG PO ×3 (09:20→20:16)
[2021-10-25] MEDS: Lithium Carbonate 300 MG TABLET PO ×2 (09:20→20:16)
[2021-10-25] MEDS: rOPINIRole HCL 0.5 MG TABLET PO (09:20)
[2021-10-25] MEDS: Multivitamin TABLET 1 TAB PO (09:20)
[2021-10-25] MEDS: QUEtiapine Fumarate 100 MG TABLET PO (09:20)
[2021-10-25] MEDS: Nicotine 14 MG PATCH.TD24 TRANSDERMA (09:21)
[2021-10-25] MEDS: amLODIPine Besylate 2.5 MG TABLET PO (09:21)
[2021-10-25] MEDS: Sennosides/Docusate Sodium TABLET 1 TAB PO ×2 (09:21→20:15)
[2021-10-25] MEDS: Mineral Oil/Petrolatum,White 106 GM Tube 1 APPL TOPICAL ×2 (09:31→21:06)
[2021-10-25] MEDS: Calcium Carbonate 750 MG TAB.CHEW PO (10:39)
[2021-10-25] MEDS: Nicotine Polacrilex 2 MG GUM 4 MG BUCCAL ×3 (10:40→19:55)
--- NOTE | 2021-10-25 17:13 | P.PNPSI_ITS ---
Subjective Subjective Date of Service: 10/25/21 Reason For Visit: Bipolar, Schizoaffective Subjective Notes: Conditional Voluntary Healthcare Proxy: No Guardianship: No Medical Problems Affecting Mental Status: No Interim History: Are you planning to take away my rights, be my guardian and not allow me access to my financial assets? Pt approached journalists and other writers with this question. Discussed why she may ask this and informed her that we had no intention of this plan. Discussed capacity parameters, attempted to provide education regarding this issue. Reports feeling overwhelmed with her former agency and their lack of cooperation in allowing her access to her finances, personal belongings. She discussed her frustration and I am trying to think of a rational reason why they would do this and this is what I came up with. I am sorry. Ambulating with some decrease in pain she reports. She attributes this to Cymbalta. Team reports she tells them she talks with her cat and talks with the at times. She is aware she has been denied admission by all of the rest homes and will be going to respite, then to care home. She has successfully changed insurance plans to [facility] for added support via [facility] [place] and is pleased that this change took place. Medication Compliance: Yes Side effects from medications: No Attending Groups: No Review of Systems Acute medical concerns: No Medical Review of Systems: unchanged Review of Systems Psychiatric: Reports anxiety, Reports depression, Reports hopelessness and Reports irritability Mental Status Exam Mental Status Exam Patient Appearance: Disheveled Patient Orientation: Person, Place, Time and Situation Level of Consciousness: Alert Patient Behavior: Talkative, Cooperative, Suspicious and Good Eye Contact Mood Description: Suspicious, Fearful, Sad and Apprehensive Affect Description: Constricted Patient Cognition Impaired: No Ability to Follow Directions: Good Speech Pattern: Spontaneous Speech Memory Description: Episodic Impaired Hallucinations: Auditory (talks with her cat and with people- I always have .) Delusions: Not Present Perceptual Disturbances: Depersonalization and Derealization Thought Process: Distracted and Rumination Thought Content: positive for Perseveration Depressive Symptoms: Increased Anxiety, Hopelessness, Unhappiness and Difficulty Concentrating Judgement: Fair Diagnostics Vital Signs (24Hr): Vital Signs - 24 hr 10/24/21 18:00 10/25/21 06:00 Temperature 98.5 F 97.6 F Pulse Rate 77 73 Blood Pressure 113/75 135/78 Pulse Oximetry 99 BMI result Body Mass Index 32.8 Labs Results: 10/07/21 08:06 Imaging Radiology Impressions: ITS Impressions Abdomen Ultrasound 09/01/21 08:59 IMPRESSION: Slightly echogenic liver. Limited evaluation of the gallbladder as the patient has recently eaten. No gallstone seen. Limited visualization of the pancreas. Hip X-Ray 09/16/21 14:47 IMPRESSION: Moderate to severe left hip arthritis. Medications Medications Current Medications Acetaminophen (Acetaminophen 325 Mg Tablet) 975 mg PO Q6H PRN PRN Reason: Headache/Pain Mild Scale (1-3) Last Admin: 10/14/21 18:18 Dose: 975 mg Documented by: Al Hydroxide/Mg Hydroxide (Magnesium Hydrox/Alum Hydrox 30 Ml Oral.Susp) 30 ml PO Q6H PRN PRN Reason: Heartburn/Nausea Last Admin: 08/22/21 05:54 Dose: 30 ml Documented by: Amlodipine Besylate (Amlodipine Besylate 2.5 Mg Tablet) 2.5 mg PO DAILY YAYA; Protocol Last Admin: 10/25/21 09:21 Dose: 2.5 mg Documented by: Artificial Tears (Artificial Tears 15 Ml Drops) 2 drop EYE-BOTH Q4H PRN PRN Reason: Dry Eyes Last Admin: 10/24/21 08:47 Dose: 2 drop Documented by: Aspirin (Aspirin Enteric Coated 325 Mg Tablet.) 650 mg PO DAILY PRN PRN Reason: headache Last Admin: 09/06/21 12:18 Dose: 650 mg Documented by: Benzocaine (Benzocaine 20 % Oral Gel 9 Gm Tube) 1 appl MUCOUS MEM QID PRN; Protocol PRN Reason: Mouth Sore Pain Last Admin: 08/31/21 03:05 Dose: 1 appl Documented by: Calcium Carbonate (Calcium Carbonate 500 Mg Tablet) 500 mg PO DAILY YAYA Last Admin: 10/25/21 09:19 Dose: 500 mg Documented by: Calcium Carbonate (Calcium Carbonate 750 Mg Tab.Chew) 750 mg PO Q4H PRN PRN Reason: Heartburn Last Admin: 10/25/21 10:39 Dose: 750 mg Documented by: Calcium Carbonate (Calcium Carbonate 750 Mg Tab.Chew) 750 mg PO Q4H PRN PRN Reason: Dyspepsia Clotrimazole (Clotrimazole 1 % Cream 15 Gm Tube) 1 appl TOPICAL BID YAYA; Protocol Last Admin: 10/25/21 09:32 Dose: Not Given Documented by: [place] Butter/Zinc Oxide ([place] Butter/Zinc Oxide Supp.Rect) 1 supp RI BEDTIME PRN PRN Reason: hemorrhoid pain Last Admin: 09/13/21 21:15 Dose: 1 supp Documented by: Cyanocobalamin (Cyanocobalamin (Vitamin B-12) 100 Mcg Tablet) 100 mcg PO DAILY [facility] Last Admin: 10/25/21 09:19 Dose: 100 mcg Documented by: Diclofenac Sodium (Diclofenac Sodium Delayed Rel 50 Mg Tablet.) 50 mg PO TID [facility] Last Admin: 10/25/21 14:35 Dose: 50 mg Documented by: Diphenhydramine HCl (Diphenhydramine Hcl 25 Mg Tablet) 50 mg PO Q6H PRN PRN Reason: eps Last Admin: 09/22/21 23:48 Dose: 50 mg Documented by: Docusate Sodium (Docusate Sodium 100 Mg Capsule) 100 mg PO BID PRN PRN Reason: Constipation Duloxetine HCl (Duloxetine Hcl 30 Mg Capsule.) 30 mg PO DAILY [facility] Last Admin: 10/25/21 09:19 Dose: 30 mg Documented by: Gabapentin (Gabapentin 400 Mg Capsule) 800 mg PO TID [facility] Last Admin: 10/25/21 14:34 Dose: 800 mg Documented by: Gabapentin (Gabapentin 100 Mg Capsule) 100 mg PO TID PRN PRN Reason: neuropathic pain Last Admin: 09/26/21 17:14 Dose: 100 mg Documented by: Hydroxyzine HCl (Hydroxyzine Hcl 25 Mg Tablet) 25 mg PO BEDTIME PRN PRN Reason: Anxiety Last Admin: 09/22/21 23:48 Dose: 25 mg Documented by: Hydroxyzine HCl (Hydroxyzine Hcl 25 Mg Tablet) 25 mg PO BEDTIME [facility] Last Admin: 10/24/21 20:52 Dose: 25 mg Documented by: Lidocaine (Lidocaine 4 % Patch Adh..Patch) 1 patch TRANSDERMA DAILY [facility]; Protocol Last Admin: 10/25/21 09:32 Dose: Not Given Documented by: Lidocaine (Lidocaine 4 % Patch Adh..Patch) 1 patch TRANSDERMA DAILY [facility]; P rotocol Last Admin: 10/25/21 09:32 Dose: Not Given Documented by: Greene Carbonate (Greene Carbonate 300 Mg Tablet) 300 mg PO BID [facility] Last Admin: 10/25/21 09:20 Dose: 300 mg Documented by: Lorazepam (Lorazepam 1 Mg Tablet) 1 mg PO TID PRN PRN Reason: anxiety/restlessness Last Admin: 10/24/21 20:57 Dose: 1 mg Documented by: Magnesium Citrate (Magnesium Citrate 300 Ml Solution) 300 ml PO DAILY PRN PRN Reason: Constipation Last Admin: 10/23/21 19:54 Dose: 300 ml Documented by: Magnesium Hydroxide (Milk Of Magnesia 30 Ml Oral.Susp) 30 ml PO DAILY PRN PRN Reason: Constipation Last Admin: 08/31/21 20:05 Dose: 30 ml Documented by: Melatonin (Melatonin 3 Mg Tablet) 9 mg PO BEDTIME [facility] Last Admin: 10/24/21 20:52 Dose: 9 mg Documented by: Multi-Ingred Cream/Lotion/Oil/Oint (Mineral Oil/Petrolatum,White 106 Gm Tube) 1 appl TOPICAL BID [facility]; Protocol Last Admin: 10/25/21 09:31 Dose: 1 appl Documented by: Multivitamins/Vitamin C (Multivitamin Tablet) 1 tab PO DAILY [facility] Last Admin: 10/25/21 09:20 Dose: 1 tab Documented by: Nicotine (Nicotine 14 Mg Patch.Td24) 14 mg TRANSDERMA DAILY [facility] Last Admin: 10/25/21 09:21 Dose: 14 mg Documented by: Nicotine Polacrilex (Nicotine Polacrilex 2 Mg Gum) 4 mg BUCCAL Q1H PRN PRN Reason: Nicotine Cravings Last Admin: 10/25/21 10:40 Dose: 4 mg Documented by: Patient Own Medication (Dry Eye Relief) 1 each EYE-BOTH QID [facility] Last Admin: 10/25/21 14:35 Dose: Not Given Documented by: Psyllium Hydrophilic Mucilloid (Psyllium Seed 3.4 Gm Powd.Pack) 3.4 gm PO DAILY [facility] Last Admin: 10/25/21 09:21 Dose: 3.4 gm Documented by: Quetiapine Fumarate (Quetiapine Fumarate 200 Mg Tablet) 200 mg PO Q6H PRN PRN Reason: anxiety/restlessness Last Admin: 09/21/21 02:38 Dose: 200 mg Documented by: Quetiapine Fumarate (Quetiapine Fumarate 100 Mg Tablet) 100 mg PO DAILY [facility] Last Admin: 10/25/21 09:20 Dose: 100 mg Documented by: Quetiapine Fumarate (Quetiapine Fumarate 300 Mg Tablet) 600 mg PO BEDTIME [facility] Last Admin: 10/24/21 20:52 Dose: 600 mg Documented by: Ropinirole HCl (Ropinirole Hcl 0.5 Mg Tablet) 0.5 mg PO 0800 [facility] Last Admin: 10/25/21 09:20 Dose: 0.5 mg Documented by: Ropinirole HCl (Ropinirole Hcl 1 Mg Tablet) 2 mg PO DAILY@1900 [facility] Last Admin: 10/24/21 19:16 Dose: 2 mg Documented by: Senna/Docusate Sodium (Sennosides/Docusate Sodium Tablet) 1 tab PO BID [facility] Last Admin: 10/25/21 09:21 Dose: 1 tab Documented by: Simethicone (Simethicone 80 Mg Tab.Chew) 80 mg PO QIDWMHS PRN PRN Reason: indigestion Sodium Chloride (Sodium Chloride 0.65 % Nasal 44 Ml Sprbtl) 1 spray NOSTRIL-B Q1H PRN PRN Reason: congestion Last Admin: 10/18/21 09:40 Dose: 1 spray Documented by: Trolamine Salicylate/Aloe Vera (Trolamine Salicylate 10%/Aloe Cream 35.4 Gm) 1 appl TOPICAL TID PRN PRN Reason: sciatica Last Admin: 09/03/21 05:27 Dose: 1 appl Documented by: Vitamin D (Cholecalciferol (Vitamin D3) 10 Mcg Tablet) 10 mcg PO DAILY [facility] Last Admin: 10/25/21 09:20 Dose: 10 mcg Documented by: Allergies Allergies Allergy/AdvReac Type Severity Reaction Status Date / Time aripiprazole [From Abilify] Allergy Unknown Involuntary Verified 08/19/21 07:20 Spasms chlorpromazine Allergy Unknown Nausea and Verified 08/19/21 07:20 [From Thorazine] Vomiting haloperidol [From Haldol] Allergy Unknown Involuntary Verified 08/19/21 07:20 Spasms olanzapine [From Zyprexa] Allergy Unknown Involuntary Verified 08/19/21 07:20 Spasms paliperidone [From Invega] Allergy Unknown Hallucinati Verified 08/19/21 07:20 ons risperidone Allergy Unknown Involuntary Verified 08/19/21 07:20 Spasms Assessment & Plan Assessment & Plan (1) Schizoaffective disorder, bipolar type: Status: Acute Code(s): F25.0 - Schizoaffective disorder, bipolar type Assessment and Plan: Continue current plan (2) Lumbar radiculopathy: Status: Acute Code(s): M54.16 - Radiculopathy, lumbar region (3) Hip pain, left: Status: Acute Code(s): M25.552 - Pain in left hip Plan 09/20/21- Improving. Transition planning with [facility]. Pt is looking at discharge to a rest home and transitioning to [facility] services in [facility]. No medication changes today. 09/21: stable on current medications. on seroquel and lithium, c/o of hip pain on ibuprofen with partial response. no behavioral concerns. no overt delusional content nor psychosis noted. 09/22/21: Continue plan of care. 09/23/21: Ortho consult-Left hip pain Pt has requested a flu shot. Discharge planning-pt considering a rest home as a temporary placement. 09/24 continue per primary treatment team. 09/25: no med changes, pt is sig less manic 09/27/21: Continue plan of care. Transitioning from [facility] to local office. 09/28/21: Continue plan of care. Support in transition and discharge planning. Refusal of Greene discussed with Blanca. Discussed other options- she will consider. 10/01/21: Continue plan of care. Fe, TIBC, ESR, CRP, RF, Vit D, CCP 10/03/21: Discontinue clonidine, mirtazapine Change diclofenic to 50 mg tid 10/06/21 Continue current regime 10/07/21 Colace 100 mg bid, high fiber diet 10/10/2021 continue current plan discharge planning 10/11/2021: Continue current regimen and plans 10/12/21: Reports leg stiffness-?EPS-Benztropine 1 mg bid to begin 10/13. Vitamin D3 10 mcg daily 10/14/21: Continue current regime-await a response from a local rest home regarding placement. 10/15/21: Latuda 20 mg HS. Discontinue Colace 10/16: Continue current regimen and plans with addition of Cymbalta 30 mg and she has been refusing Latuda 20 mg 10/17: Continue current regimen and plans and discontinue Latuda 10/18: Discontinue Cymbalta due to high risk of mood cycling. Pt declines other interventions at this time. 10/20/21: Discontinue Wellbutrin (one day trial-pt is not interested) Cymbalta 20 mg daily to begin on 10/21/21. 10/21/21: Continue current regime. Monitor for mood changes Possible rest home option for pt-discharge planning-care home placement should this not work out. 10/22/21: Increase Cymbalta to 30 mg daily 10/23/21: No change to the above 10/24/21: No change 10/25/21: Blanca is attempting to make sense of why her previous team has been inactive in transferring her funds and paperwork to [facility]. She has many ideas and today thought she should ask if we planned to take margie conservatorship of her and this is why the [place] team has not sent her financial resources and paperwork. We discussed this and that there was not a plan to do this. She is anxious that she has not been accepted by local rest homes or respite as this transfer has not occurred and worries about going to a care home. She reports she has a new insurance, [employer], however they cannot help her until her care is transitioned to [facility] services. She discussed talking with her cat and friends and relatives. She clarifies that this is not a symptom of illness but something she has done since youth to remain connected. No regime changes today. I spent minutes with the patient and/or on the patient floor today, greater than?50% of which was spent counseling/coordinating care. Patient educated on: therapeutic strategies and other Informed Consent: understands and further education needed Reason for contiued inpatient stay Substantial Risk for: inability to function and rapid decompensation
[2021-10-25] MEDS: rOPINIRole HCL 1 MG TABLET 2 MG PO (19:54)
[2021-10-25 20:10] VITALS: BP 132/83; PULSE 89; TEMP 36.3; O2SAT 97
[2021-10-25] MEDS: hydrOXYzine HCL 25 MG TABLET PO (20:15)
[2021-10-25] MEDS: QUEtiapine Fumarate 300 MG TABLET 600 MG PO (20:15)
[2021-10-25] MEDS: Melatonin 3 MG TABLET 9 MG PO (20:15)
[2021-10-25] MEDS: LORazepam 1 MG TABLET PO (22:41)
[2021-10-26 06:00] VITALS: BP 112/62; PULSE 81; TEMP 37.2; O2SAT 98
[2021-10-26] MEDS: Nicotine 14 MG PATCH.TD24 TRANSDERMA (09:23)
[2021-10-26] MEDS: Clotrimazole 1 % Cream 15 GM TUBE 1 APPL TOPICAL (09:25)
[2021-10-26] MEDS: Mineral Oil/Petrolatum,White 106 GM Tube 1 APPL TOPICAL (09:25)
[2021-10-26] MEDS: Nicotine Polacrilex 2 MG GUM 4 MG BUCCAL ×3 (09:26→19:23)
[2021-10-26] MEDS: Gabapentin 400 MG CAPSULE 800 MG PO ×3 (09:27→20:13)
[2021-10-26] MEDS: Multivitamin TABLET 1 TAB PO (09:27)
[2021-10-26] MEDS: DULoxetine HCl 30 MG CAPSULE.DR PO (09:27)
[2021-10-26] MEDS: QUEtiapine Fumarate 100 MG TABLET PO (09:27)
[2021-10-26] MEDS: Cholecalciferol (Vitamin D3) 10 MCG TABLET PO (09:27)
[2021-10-26] MEDS: Diclofenac Sodium Delayed Rel 50 MG TABLET.DR PO ×3 (09:27→20:11)
[2021-10-26] MEDS: Sennosides/Docusate Sodium TABLET 1 TAB PO ×2 (09:27→20:12)
[2021-10-26] MEDS: rOPINIRole HCL 0.5 MG TABLET PO (09:27)
[2021-10-26] MEDS: amLODIPine Besylate 2.5 MG TABLET PO (09:28)
[2021-10-26] MEDS: Cyanocobalamin (Vitamin B-12) 100 MCG TABLET PO (09:28)
[2021-10-26] MEDS: Lithium Carbonate 300 MG TABLET PO ×2 (09:28→20:12)
--- NOTE | 2021-10-26 13:25 | P.PNPSI_ITS ---
Subjective Subjective Date of Service: 10/26/21 Reason For Visit: Bipolar, Schizoaffective Subjective Notes: Conditional Voluntary Healthcare Proxy: No Guardianship: No Medical Problems Affecting Mental Status: No Interim History: I have done well here because I have stable people, environment and support. If they just send me out, I won't have what I need and it will get bad again. I wish PACT would understand this. Medication Compliance: Yes Side effects from medications: No Attending Groups: No Review of Systems Acute medical concerns: No Medical Review of Systems: unchanged Review of Systems Psychiatric: Reports anxiety, Reports depression, Reports hopelessness and Re ports irritability Mental Status Exam Mental Status Exam Patient Appearance: Disheveled Patient Orientation: Person, Place, Time and Situation Level of Consciousness: Alert Patient Behavior: Talkative, Cooperative, Suspicious and Good Eye Contact Mood Description: Suspicious, Fearful, Sad and Apprehensive Affect Description: Constricted Patient Cognition Impaired: No Ability to Follow Directions: Good Speech Pattern: Spontaneous Speech Memory Description: Episodic Impaired Hallucinations: Auditory (talks with her cat and with people- I always have .) Delusions: Not Present Perceptual Disturbances: Depersonalization and Derealization Thought Process: Distracted and Rumination Thought Content: positive for Perseveration Depressive Symptoms: Increased Anxiety, Hopelessness, Unhappiness and Difficulty Concentrating Judgement: Fair Diagnostics Vital Signs (24Hr): Vital Signs - 24 hr 10/25/21 20:10 10/26/21 06:00 Temperature 97.4 F 99.0 F Pulse Rate 89 81 Blood Pressure 132/83 112/62 Pulse Oximetry 97 98 BMI result Body Mass Index 32.8 Labs Results: 10/07/21 08:06 Imaging Radiology Impressions: ITS Impressions Abdomen Ultrasound 09/01/21 08:59 IMPRESSION: Slightly echogenic liver. Limited evaluation of the gallbladder as the patient has recently eaten. No gallstone seen. Limited visualization of the pancreas. Hip X-Ray 09/16/21 14:47 IMPRESSION: Moderate to severe left hip arthritis. Medications Medications Current Medications Acetaminophen (Acetaminophen 325 Mg Tablet) 975 mg PO Q6H PRN PRN Reason: Headache/Pain Mild Scale (1-3) Last Admin: 10/14/21 18:18 Dose: 975 mg Documented by: Al Hydroxide/Mg Hydroxide (Magnesium Hydrox/Alum Hydrox 30 Ml Oral.Susp) 30 ml PO Q6H PRN PRN Reason: Heartburn/Nausea Last Admin: 08/22/21 05:54 Dose: 30 ml Documented by: Amlodipine Besylate (Amlodipine Besylate 2.5 Mg Tablet) 2.5 mg PO DAILY [facility]; Protocol Last Admin: 10/26/21 09:28 Dose: 2.5 mg Documented by: Artificial Tears (Artificial Tears 15 Ml Drops) 2 drop EYE-BOTH Q4H PRN PRN Reason: Dry Eyes Last Admin: 10/24/21 08:47 Dose: 2 drop Documented by: Aspirin (Aspirin Enteric Coated 325 Mg Tablet.) 650 mg PO DAILY PRN PRN Reason: headache Last Admin: 09/06/21 12:18 Dose: 650 mg Documented by: Benzocaine (Benzocaine 20 % Oral Gel 9 Gm Tube) 1 appl MUCOUS MEM QID PRN; Protocol PRN Reason: Mouth Sore Pain Last Admin: 08/31/21 03:05 Dose: 1 appl Documented by: Calcium Carbonate (Calcium Carbonate 500 Mg Tablet) 500 mg PO DAILY [facility] Last Admin: 10/26/21 09:27 Dose: 500 mg Documented by: Calcium Carbonate (Calcium Carbonate 750 Mg Tab.Chew) 750 mg PO Q4H PRN PRN Reason: Heartburn Last Admin: 10/25/21 10:39 Dose: 750 mg Documented by: Calcium Carbonate (Calcium Carbonate 750 Mg Tab.Chew) 750 mg PO Q4H PRN PRN Reason: Dyspepsia Clotrimazole (Clotrimazole 1 % Cream 15 Gm Tube) 1 appl TOPICAL BID [facility]AYA; Protocol Last Admin: 10/26/21 09:25 Dose: 1 appl Documented by: Gibson Butter/Zinc Oxide (Gibson Butter/Zinc Oxide Supp.Rect) 1 supp OK BEDTIME PRN PRN Reason: hemorrhoid pain Last Admin: 09/13/21 21:15 Dose: 1 supp Documented by: Cyanocobalamin (Cyanocobalamin (Vitamin B-12) 100 Mcg Tablet) 100 mcg PO DAILY [facility] Last Admin: 10/26/21 09:28 Dose: 100 mcg Documented by: Diclofenac Sodium (Diclofenac Sodium Delayed Rel 50 Mg Tablet.) 50 mg PO TID [facility] Last Admin: 10/26/21 09:27 Dose: 50 mg Documented by: Diphenhydramine HCl (Diphenhydramine Hcl 25 Mg Tablet) 50 mg PO Q6H PRN PRN Reason: eps Last Admin: 09/22/21 23:48 Dose: 50 mg Documented by: Docusate Sodium (Docusate Sodium 100 Mg Capsule) 100 mg PO BID PRN PRN Reason: Constipation Duloxetine HCl (Duloxetine Hcl 30 Mg Capsule.Dr) 30 mg PO DAILY [facility] Last Admin: 10/26/21 09:27 Dose: 30 mg Documented by: Gabapentin (Gabapentin 400 Mg Capsule) 800 mg PO TID YAYA Last Admin: 10/26/21 09:27 Dose: 800 mg Documented by: Gabapentin (Gabapentin 100 Mg Capsule) 100 mg PO TID PRN PRN Reason: neuropathic pain Last Admin: 09/26/21 17:14 Dose: 100 mg Documented by: Hydroxyzine HCl (Hydroxyzine Hcl 25 Mg Tablet) 25 mg PO BEDTIME PRN PRN Reason: Anxiety Last Admin: 09/22/21 23:48 Dose: 25 mg Documented by: Hydroxyzine HCl (Hydroxyzine Hcl 25 Mg Tablet) 25 mg PO BEDTIME [facility] Last Admin: 10/25/21 20:15 Dose: 25 mg Documented by: Lidocaine (Lidocaine 4 % Patch Adh..Patch) 1 patch TRANSDERMA DAILY [facility]; Protocol Last Admin: 10/26/21 09:34 Dose: Not Given Documented by: Lidocaine (Lidocaine 4 % Patch Adh..Patch) 1 patch TRANSDERMA DAILY [facility]; Protocol Last Admin: 10/26/21 09:35 Dose: Not Given Documented by: Pecos Carbonate (Pecos Carbonate 300 Mg Tablet) 300 mg PO BID [facility] Last Admin: 10/26/21 09:28 Dose: 300 mg Documented by: Lorazepam (Lorazepam 1 Mg Tablet) 1 mg PO TID PRN PRN Reason: anxiety/restlessness Last Admin: 10/25/21 22:41 Dose: 1 mg Documented by: Magnesium Citrate (Magnesium Citrate 300 Ml Solution) 300 ml PO DAILY PRN PRN Reason: Constipation Last Admin: 10/23/21 19:54 Dose: 300 ml Documented by: Magnesium Hydroxide (Milk Of Magnesia 30 Ml Oral.Susp) 30 ml PO DAILY PRN PRN Reason: Constipation Last Admin: 08/31/21 20:05 Dose: 30 ml Documented by: Melatonin (Melatonin 3 Mg Tablet) 9 mg PO BEDTIME [facility]AYA Last Admin: 10/25/21 20:15 Dose: 9 mg Documented by: Multi-Ingred Cream/Lotion/Oil/Oint (Mineral Oil/Petrolatum,White 106 Gm Tube) 1 appl TOPICAL BID [facility]; Protocol Last Admin: 10/26/21 09:25 Dose: 1 appl Documented by: Multivitamins/Vitamin C (Multivitamin Tablet) 1 tab PO DAILY [facility] Last Admin: 10/26/21 09:27 Dose: 1 tab Documented by: Nicotine (Nicotine 14 Mg Patch.Td24) 14 mg TRANSDERMA DAILY [facility] Last Admin: 10/26/21 09:23 Dose: 14 mg Documented by: Nicotine Polacrilex (Nicotine Polacrilex 2 Mg Gum) 4 mg BUCCAL Q1H PRN PRN Reason: Nicotine Cravings Last Admin: 10/26/21 09:26 Dose: 4 mg Documented by: Patient Own Medication (Dry Eye Relief) 1 each EYE-BOTH QID [facility] Last Admin: 10/26/21 12:06 Dose: Not Given Documented by: Psyllium Hydrophilic Mucilloid (Psyllium Seed 3.4 Gm Powd.Pack) 3.4 gm PO DAILY [facility] Last Admin: 10/26/21 09:23 Dose: 3.4 gm Documented by: Quetiapine Fumarate (Quetiapine Fumarate 200 Mg Tablet) 200 mg PO Q6H PRN PRN Reason: anxiety/restlessness Last Admin: 09/21/21 02:38 Dose: 200 mg Documented by: Quetiapine Fumarate (Quetiapine Fumarate 100 Mg Tablet) 100 mg PO DAILY [facility] Last Admin: 10/26/21 09:27 Dose: 100 mg Documented by: Quetiapine Fumarate (Quetiapine Fumarate 300 Mg Tablet) 600 mg PO BEDTIME [facility] Last Admin: 10/25/21 20:15 Dose: 600 mg Documented by: Ropinirole HCl (Ropinirole Hcl 0.5 Mg Tablet) 0.5 mg PO 0800 [facility] Last Admin: 10/26/21 09:27 Dose: 0.5 mg Documented by: Ropinirole HCl (Ropinirole Hcl 1 Mg Tablet) 2 mg PO DAILY@1900 [facility] Last Admin: 10/25/21 19:54 Dose: 2 mg Documented by: Senna/Docusate Sodium (Sennosides/Docusate Sodium Tablet) 1 tab PO BID [facility] Last Admin: 10/26/21 09:27 Dose: 1 tab Documented by: Simethicone (Simethicone 80 Mg Tab.Chew) 80 mg PO QIDWMHS PRN PRN Reason: indigestion Sodium Chloride (Sodium Chloride 0.65 % Nasal 44 Ml Sprbtl) 1 spray NOSTRIL-B Q1H PRN PRN Reason: congestion Last Admin: 10/18/21 09:40 Dose: 1 spray Documented by: Trolamine Salicylate/Aloe Vera (Trolamine Salicylate 10%/Aloe Cream 35.4 Gm) 1 appl TOPICAL TID PRN PRN Reason: sciatica Last Admin: 09/03/21 05:27 Dose: 1 appl Documented by: Vitamin D (Cholecalciferol (Vitamin D3) 10 Mcg Tablet) 10 mcg PO DAILY [facility] Last Admin: 10/26/21 09:27 Dose: 10 mcg Documented by: Allergies Allergies Allergy/AdvReac Type Severity Reaction Status Date / Time aripiprazole [From Abilify] Allergy Unknown Involuntary Verified 08/19/21 07:20 Spasms chlorpromazine Allergy Unknown Nausea and Verified 08/19/21 07:20 [From Thorazine] Vomiting haloperidol [From Haldol] Allergy Unknown Involuntary Verified 08/19/21 07:20 Spasms olanzapine [From Zyprexa] Allergy Unknown Involuntary Verified 08/19/21 07:20 Spasms paliperidone [From Invega] Allergy Unknown Hallucinati Verified 08/19/21 07:20 ons risperidone Allergy Unknown Involuntary Verified 08/19/21 07:20 Spasms Assessment & Plan Assessment & Plan (1) Schizoaffective disorder, bipolar type: Status: Acute Code(s): F25.0 - Schizoaffective disorder, bipolar type Assessment and Plan: Continue current plan (2) Lumbar radiculopathy: Status: Acute Code(s): M54.16 - Radiculopathy, lumbar region (3) Hip pain, left: Status: Acute Code(s): M25.552 - Pain in left hip Plan 09/20/21- Improving. Transition planning with [facility]. Pt is looking at discharge to a rest home and transitioning to [facility] services in [facility]. No medication changes today. 09/21: stable on current medications. on seroquel and lithium, c/o of hip pain on ibuprofen with partial response. no behavioral concerns. no overt delusional content nor psychosis noted. 09/22/21: Continue plan of care. 09/23/21: Ortho consult-Left hip pain Pt has requested a flu shot. Discharge planning-pt considering a rest home as a temporary placement. 09/24 continue per primary treatment team. 09/25: no med changes, pt is sig less manic 09/27/21: Continue plan of care. Transitioning from [facility] to local office. 09/28/21: Continue plan of care. Support in transition and discharge planning. Refusal of [place] discussed with Blanca. Discussed other options- she will consider. 10/01/21: Continue plan of care. Fe, TIBC, ESR, CRP, RF, Vit D, CCP 10/03/21: Discontinue clonidine, mirtazapine Change diclofenic to 50 mg tid 10/06/21 Continue current regime 10/07/21 Colace 100 mg bid, high fiber diet 10/10/2021 continue current plan discharge planning 10/11/2021: Continue current regimen and plans 10/12/21: Reports leg stiffness-?EPS-Benztropine 1 mg bid to begin 10/13. Vitamin D3 10 mcg daily 10/14/21: Continue current regime-await a response from a local rest home regard ing placement. 10/15/21: Latuda 20 mg HS. Discontinue Colace 10/16: Continue current regimen and plans with addition of Cymbalta 30 mg and she has been refusing Latuda 20 mg 10/17: Continue current regimen and plans and discontinue Latuda 10/18: Discontinue Cymbalta due to high risk of mood cycling. Pt declines other interventions at this time. 10/20/21: Discontinue Wellbutrin (one day trial-pt is not interested) Cymbalta 20 mg daily to begin on 10/21/21. 10/21/21: Continue current regime. Monitor for mood changes Possible rest home option for pt-discharge planning-detention placement should this not work out. 10/22/21: Increase Cymbalta to 30 mg daily 10/23/21: No change to the above 10/24/21: No change 10/26/21: Team is working on placement and transitioning to [facility]. I spent minutes with the patient and/or on the patient floor today, greater than?50% of which was spent counseling/coordinating care. Patient educated on: diagnosis, therapeutic strategies and other Informed Consent: understands and further education needed Reason for contiued inpatient stay Substantial Risk for: inability to function and rapid decompensation
[2021-10-26] MEDS: Magnesium Citrate 300 ML SOLUTION PO (14:33)
[2021-10-26 18:00] VITALS: BP 121/69; PULSE 70; TEMP 36.6; O2SAT 96
[2021-10-26] MEDS: rOPINIRole HCL 1 MG TABLET 2 MG PO (19:10)
[2021-10-26] MEDS: hydrOXYzine HCL 25 MG TABLET PO (20:13)
[2021-10-26] MEDS: Melatonin 3 MG TABLET 9 MG PO (20:14)
[2021-10-26] MEDS: QUEtiapine Fumarate 300 MG TABLET 600 MG PO (21:18)
--- NOTE | 2021-10-27 03:08 | PC.NURSE ---
Pt has been repeatedly going to bed with the headphones. When this typewriter tester was going to go to her room to retrieve them, was told by an [facility] that pt stated to her that staff coming in to retrieve them in middle of night triggers and upsets her for the rest of the night. Suggestion: Retrieve headphones at time of last evening med pass (21:00) to avoid this.
[2021-10-27] MEDS: Mineral Oil/Petrolatum,White 106 GM Tube 1 APPL TOPICAL (09:53)
[2021-10-27] MEDS: Nicotine 14 MG PATCH.TD24 TRANSDERMA (09:54)
[2021-10-27] MEDS: Clotrimazole 1 % Cream 15 GM TUBE 1 APPL TOPICAL (09:54)
[2021-10-27] MEDS: QUEtiapine Fumarate 100 MG TABLET PO (09:56)
[2021-10-27] MEDS: Cyanocobalamin (Vitamin B-12) 100 MCG TABLET PO (09:56)
[2021-10-27] MEDS: Lithium Carbonate 300 MG TABLET PO ×2 (09:56→21:54)
[2021-10-27] MEDS: Diclofenac Sodium Delayed Rel 50 MG TABLET.DR PO ×3 (09:56→21:36)
[2021-10-27] MEDS: Multivitamin TABLET 1 TAB PO (09:56)
[2021-10-27] MEDS: Cholecalciferol (Vitamin D3) 10 MCG TABLET PO (09:56)
[2021-10-27] MEDS: rOPINIRole HCL 0.5 MG TABLET PO (09:56)
[2021-10-27] MEDS: DULoxetine HCl 30 MG CAPSULE.DR PO (09:56)
[2021-10-27] MEDS: Sennosides/Docusate Sodium TABLET 1 TAB PO ×2 (09:56→21:36)
[2021-10-27] MEDS: Gabapentin 400 MG CAPSULE 800 MG PO ×3 (09:56→21:54)
[2021-10-27] MEDS: amLODIPine Besylate 2.5 MG TABLET PO (09:57)
[2021-10-27] MEDS: Nicotine Polacrilex 2 MG GUM 4 MG BUCCAL ×4 (09:57→21:41)
[2021-10-27 11:05] VITALS: BP 133/73; PULSE 88; TEMP 36.8; O2SAT 96
--- NOTE | 2021-10-27 17:18 | P.PNPSI_ITS ---
Subjective Subjective Date of Service: 10/27/21 Reason For Visit: Bipolar, Schizoaffective Subjective Notes: Conditional Voluntary Interim History: Team reports pt is isolative, anxious, not attending to ADL's. Pt reports fear, apprehension, worry. Feels she is set up to fail as her team in [place] will not follow up with their responsibilities to transfer pt. Team is attempting to contact them regularly. Medication Compliance: Yes Side effects from medications: No Attending Groups: No Review of Systems Acute medical concerns: No Medical Review of Systems: unchanged Review of Systems Psychiatric: Reports anxiety, Reports depression, Reports hopelessness and Reports irritability Mental Status Exam Mental Status Exam Patient Appearance: Disheveled Patient Orientation: Person, Place, Time and Situation Level of Consciousness: Alert Patient Behavior: Talkative, Cooperative, Suspicious and Good Eye Contact Mood Description: Suspicious, Fearful, Sad and Apprehensive Affect Description: Constricted Patient Cognition Impaired: No Ability to Follow Directions: Good Speech Pattern: Spontaneous Speech Memory Description: Episodic Impaired Hallucinations: Auditory (talks with her cat and with people- I always have .) Delusions: Not Present Perceptual Disturbances: Depersonalization and Derealization Thought Process: Distracted and Rumination Thought Content: positive for Perseveration Depressive Symptoms: Increased Anxiety, Hopelessness, Unhappiness and Difficulty Concentrating Judgement: Fair Diagnostics Vital Signs (24Hr): Vital Signs - 24 hr 10/26/21 18:00 10/27/21 11:05 Temperature 98 F 98.3 F Pulse Rate 70 88 Blood Pressure 121/69 133/73 Pulse Oximetry 96 96 BMI result Body Mass Index 32.8 Labs Results: 10/07/21 08:06 Imaging Radiology Impressions: ITS Impressions Abdomen Ultrasound 09/01/21 08:59 IMPRESSION: Slightly echogenic liver. Limited evaluation of the gallbladder as the patient has recently eaten. No gallstone seen. Limited visualization of the pancreas. Hip X-Ray 09/16/21 14:47 IMPRESSION: Moderate to severe left hip arthritis. Medications Medications Current Medications Acetaminophen (Acetaminophen 325 Mg Tablet) 975 mg PO Q6H PRN PRN Reason: Headache/Pain Mild Scale (1-3) Last Admin: 10/14/21 18:18 Dose: 975 mg Documented by: Al Hydroxide/Mg Hydroxide (Magnesium Hydrox/Alum Hydrox 30 Ml Oral.Susp) 30 ml PO Q6H PRN PRN Reason: Heartburn/Nausea Last Admin: 08/22/21 05:54 Dose: 30 ml Documented by: Amlodipine Besylate (Amlodipine Besylate 2.5 Mg Tablet) 2.5 mg PO DAILY YAYA; Protocol Last Admin: 10/27/21 09:57 Dose: 2.5 mg Documented by: Artificial Tears (Artificial Tears 15 Ml Drops) 2 drop EYE-BOTH Q4H PRN PRN Reason: Dry Eyes Last Admin: 10/24/21 08:47 Dose: 2 drop Documented by: Aspirin (Aspirin Enteric Coated 325 Mg Tablet.) 650 mg PO DAILY PRN PRN Reason: headache Last Admin: 09/06/21 12:18 Dose: 650 mg Documented by: Benzocaine (Benzocaine 20 % Oral Gel 9 Gm Tube) 1 appl MUCOUS MEM QID PRN; Protocol PRN Reason: Mouth Sore Pain Last Admin: 08/31/21 03:05 Dose: 1 appl Documented by: Calcium Carbonate (Calcium Carbonate 500 Mg Tablet) 500 mg PO DAILY YAYA Last Admin: 10/27/21 09:56 Dose: 500 mg Documented by: Calcium Carbonate (Calcium Carbonate 750 Mg Tab.Chew) 750 mg PO Q4H PRN PRN Reason: Heartburn Last Admin: 10/25/21 10:39 Dose: 750 mg Documented by: Calcium Carbonate (Calcium Carbonate 750 Mg Tab.Chew) 750 mg PO Q4H PRN PRN Reason: Dyspepsia Clotrimazole (Clotrimazole 1 % Cream 15 Gm Tube) 1 appl TOPICAL BID YAYA; Protocol Last Admin: 10/27/21 09:54 Dose: 1 appl Documented by: [place] Butter/Zinc Oxide ([place] Butter/Zinc Oxide Supp.Rect) 1 supp NM BEDTIME PRN PRN Reason: hemorrhoid pain Last Admin: 09/13/21 21:15 Dose: 1 supp Documented by: Cyanocobalamin (Cyanocobalamin (Vitamin B-12) 100 Mcg Tablet) 100 mcg PO DAILY YAYA Last Admin: 10/27/21 09:56 Dose: 100 mcg Documented by: Diclofenac Sodium (Diclofenac Sodium Delayed Rel 50 Mg Tablet.) 50 mg PO TID YAYA Last Admin: 10/27/21 14:22 Dose: 50 mg Documented by: Diphenhydramine HCl (Diphenhydramine Hcl 25 Mg Tablet) 50 mg PO Q6H PRN PRN Reason: eps Last Admin: 09/22/21 23:48 Dose: 50 mg Documented by: Docusate Sodium (Docusate Sodium 100 Mg Capsule) 100 mg PO BID PRN PRN Reason: Constipation Duloxetine HCl (Duloxetine Hcl 30 Mg Capsule.Dr) 30 mg PO DAILY [facility] Last Admin: 10/27/21 09:56 Dose: 30 mg Documented by: Gabapentin (Gabapentin 400 Mg Capsule) 800 mg PO TID YAYA Last Admin: 10/27/21 14:22 Dose: 800 mg Documented by: Gabapentin (Gabapentin 100 Mg Capsule) 100 mg PO TID PRN PRN Reason: neuropathic pain Last Admin: 09/26/21 17:14 Dose: 100 mg Documented by: Hydroxyzine HCl (Hydroxyzine Hcl 25 Mg Tablet) 25 mg PO BEDTIME PRN PRN Reason: Anxiety Last Admin: 09/22/21 23:48 Dose: 25 mg Documented by: Hydroxyzine HCl (Hydroxyzine Hcl 25 Mg Tablet) 25 mg PO BEDTIME YAYA Last Admin: 10/26/21 20:13 Dose: 25 mg Documented by: Lidocaine (Lidocaine 4 % Patch Adh..Patch) 1 patch TRANSDERMA DAILY [facility]; Protocol Last Admin: 10/27/21 10:02 Dose: Not Given Documented by: Lidocaine (Lidocaine 4 % Patch Adh..Patch) 1 patch TRANSDERMA DAILY [facility]; Protocol Last Admin: 10/27/21 10:01 Dose: Not Given Documented by: [place] Carbonate ([place] Carbonate 300 Mg Tablet) 300 mg PO BID [facility] Last Admin: 10/27/21 09:56 Dose: 300 mg Documented by: Lorazepam (Lorazepam 1 Mg Tablet) 1 mg PO TID PRN PRN Reason: anxiety/restlessness Last Admin: 10/25/21 22:41 Dose: 1 mg Documented by: Magnesium Citrate (Magnesium Citrate 300 Ml Solution) 300 ml PO DAILY PRN PRN Reason: Constipation Last Admin: 10/26/21 14:33 Dose: 300 ml Documented by: Magnesium Hydroxide (Milk Of Magnesia 30 Ml Oral.Susp) 30 ml PO DAILY PRN PRN Reason: Constipation Last Admin: 08/31/21 20:05 Dose: 30 ml Documented by: Melatonin (Melatonin 3 Mg Tablet) 9 mg PO BEDTIME YAYA Last Admin: 10/26/21 20:14 Dose: 9 mg Documented by: Multi-Ingred Cream/Lotion/Oil/Oint (Mineral Oil/Petrolatum,White 106 Gm Tube) 1 appl TOPICAL BID [facility]; Protocol Last Admin: 10/27/21 09:53 Dose: 1 appl Documented by: Multivitamins/Vitamin C (Multivitamin Tablet) 1 tab PO DAILY [facility] Last Admin: 10/27/21 09:56 Dose: 1 tab Documented by: Nicotine (Nicotine 14 Mg Patch.Td24) 14 mg TRANSDERMA DAILY [facility] Last Admin: 10/27/21 09:54 Dose: 14 mg Documented by: Nicotine Polacrilex (Nicotine Polacrilex 2 Mg Gum) 4 mg BUCCAL Q1H PRN PRN Reason: Nicotine Cravings Last Admin: 10/27/21 14:23 Dose: 4 mg Documented by: Patient Own Medication (Dry Eye Relief) 1 each EYE-BOTH QID [facility] Last Admin: 10/27/21 13:12 Dose: 1 each Documented by: Psyllium Hydrophilic Mucilloid (Psyllium Seed 3.4 Gm Powd.Pack) 3.4 gm PO DAILY [facility] Last Admin: 10/27/21 09:53 Dose: 3.4 gm Documented by: Quetiapine Fumarate (Quetiapine Fumarate 200 Mg Tablet) 200 mg PO Q6H PRN PRN Reason: anxiety/restlessness Last Admin: 09/21/21 02:38 Dose: 200 mg Documented by: Quetiapine Fumarate (Quetiapine Fumarate 100 Mg Tablet) 100 mg PO DAILY [facility] Last Admin: 10/27/21 09:56 Dose: 100 mg Documented by: Quetiapine Fumarate (Quetiapine Fumarate 300 Mg Tablet) 600 mg PO BEDTIME [facility] Last Admin: 10/26/21 21:18 Dose: 600 mg Documented by: Ropinirole HCl (Ropinirole Hcl 0.5 Mg Tablet) 0.5 mg PO 0800 [facility] Last Admin: 10/27/21 09:56 Dose: 0.5 mg Documented by: Ropinirole HCl (Ropinirole Hcl 1 Mg Tablet) 2 mg PO DAILY@1900 [facility] Last Admin: 10/26/21 19:10 Dose: 2 mg Documented by: Senna/Docusate Sodium (Sennosides/Docusate Sodium Tablet) 1 tab PO BID [facility] Last Admin: 10/27/21 09:56 Dose: 1 tab Documented by: Simethicone (Simethicone 80 Mg Tab.Chew) 80 mg PO QIDWMHS PRN PRN Reason: indigestion Sodium Chloride (Sodium Chloride 0.65 % Nasal 44 Ml Sprbtl) 1 spray NOSTRIL-B Q1H PRN PRN Reason: congestion Last Admin: 10/18/21 09:40 Dose: 1 spray Documented by: Trolamine Salicylate/Aloe Vera (Trolamine Salicylate 10%/Aloe Cream 35.4 Gm) 1 appl TOPICAL TID PRN PRN Reason: sciatica Last Admin: 09/03/21 05:27 Dose: 1 appl Documented by: Vitamin D (Cholecalciferol (Vitamin D3) 10 Mcg Tablet) 10 mcg PO DAILY YAYA Last Admin: 10/27/21 09:56 Dose: 10 mcg Documented by: Allergies Allergies Allergy/AdvReac Type Severity Reaction Status Date / Time aripiprazole [From Abilify] Allergy Unknown Involuntary Verified 08/19/21 07:20 Spasms chlorpromazine Allergy Unknown Nausea and Verified 08/19/21 07:20 [From Thorazine] Vomiting haloperidol [From Haldol] Allergy Unknown Involuntary Verified 08/19/21 07:20 Spasms olanzapine [From Zyprexa] Allergy Unknown Involuntary Verified 08/19/21 07:20 Spasms paliperidone [From Invega] Allergy Unknown Hallucinati Verified 08/19/21 07:20 ons risperidone Allergy Unknown Involuntary Verified 08/19/21 07:20 Spasms Assessment & Plan Assessment & Plan (1) Schizoaffective disorder, bipolar type: Status: Acute Code(s): F25.0 - Schizoaffective disorder, bipolar type Assessment and Plan: Continue current plan (2) Lumbar radiculopathy: Status: Acute Code(s): M54.16 - Radiculopathy, lumbar region (3) Hip pain, left: Status: Acute Code(s): M25.552 - Pain in left hip Plan 09/20/21- Improving. Transition planning with [facility]. Pt is looking at discharge to a rest home and transitioning to [facility] services in [facility]. No medication changes today. 09/21: stable on current medications. on seroquel and lithium, c/o of hip pain on ibuprofen with partial response. no behavioral concerns. no overt delusional content nor psychosis noted. 09/22/21: Continue plan of care. 09/23/21: Ortho consult-Left hip pain Pt has requested a flu shot. Discharge planning-pt considering a rest home as a temporary placement. 09/24 continue per primary treatment team. 09/25: no med changes, pt is sig less manic 09/27/21: Continue plan of care. Transitioning from Health system to local office. 09/28/21: Continue plan of care. Support in transition and discharge planning. Refusal of [place] discussed with Blanca. Discussed other options- she will consider. 10/01/21: Continue plan of care. Fe, TIBC, ESR, CRP, RF, Vit D, CCP 10/03/21: Discontinue clonidine, mirtazapine Change diclofenic to 50 mg tid 10/06/21 Continue current regime 10/07/21 Colace 100 mg bid, high fiber diet 10/10/2021 continue current plan discharge planning 10/11/2021: Continue current regimen and plans 10/12/21: Reports leg stiffness-?EPS-Benztropine 1 mg bid to begin 10/13. Vitamin D3 10 mcg daily 10/14/21: Continue current regime-await a response from a local rest home regarding placement. 10/15/21: Latuda 20 mg HS. Discontinue Colace 10/16: Continue current regimen and plans with addition of Cymbalta 30 mg and she has been refusing Latuda 20 mg 10/17: Continue current regimen and plans and discontinue Latuda 10/18: Discontinue Cymbalta due to high risk of mood cycling. Pt declines other interventions at this time. 10/20/21: Discontinue Wellbutrin (one day trial-pt is not interested) Cymbalta 20 mg daily to begin on 10/21/21. 10/21/21: Continue current regime. Monitor for mood changes Possible rest home option for pt-discharge planning-halfway placement should this not work out. 10/22/21: Increase Cymbalta to 30 mg daily 10/23/21: No change to the above 10/24/21: No change 10/25/21: Blanca is attempting to make sense of why her previous team has been inactive in transferring her funds and paperwork to [facility]. She has many i osorio and today thought she should ask if we planned to take margie conservatorship of her and this is why the [place] team has not sent her financial resources and paperwork. We discussed this and that there was not a plan to do this. She is anxious that she has not been accepted by local rest frida es or respite as this transfer has not occurred and worries about going to a halfway. She reports she has a new insurance, [employer], however they cannot help her until her care is transitioned to [facility] services. She discussed talking with her cat and friends and relatives. She clarifies that this is not a symptom of illness but something she has done since youth to remain connected. No regime changes today. 10/27/21 Continue to support pt with transition Continue current regime I spent minutes with the patient and/or on the patient floor today, greater than?50% of which was spent counseling/coordinating care. Patient educated on: therapeutic strategies and other Informed Consent: understands and further education needed Reason for contiued inpatient stay Substantial Risk for: inability to function and rapid decompensation
[2021-10-27 17:25] VITALS: BP 137/66; PULSE 76; TEMP 37; O2SAT 95
[2021-10-27] MEDS: rOPINIRole HCL 1 MG TABLET 2 MG PO (19:53)
[2021-10-27] MEDS: hydrOXYzine HCL 25 MG TABLET PO (21:40)
[2021-10-27] MEDS: Melatonin 3 MG TABLET 9 MG PO (21:41)
[2021-10-27] MEDS: LORazepam 1 MG TABLET PO (21:55)
[2021-10-27] MEDS: QUEtiapine Fumarate 300 MG TABLET 600 MG PO (22:00)
[2021-10-28 09:21] VITALS: BP 132/68; PULSE 74; TEMP 36.7; O2SAT 96
[2021-10-28] MEDS: Cholecalciferol (Vitamin D3) 10 MCG TABLET PO (09:25)
[2021-10-28] MEDS: Sennosides/Docusate Sodium TABLET 1 TAB PO ×2 (09:25→20:06)
[2021-10-28] MEDS: rOPINIRole HCL 0.5 MG TABLET PO (09:25)
[2021-10-28] MEDS: Multivitamin TABLET 1 TAB PO (09:25)
[2021-10-28] MEDS: QUEtiapine Fumarate 100 MG TABLET PO (09:25)
[2021-10-28] MEDS: DULoxetine HCl 30 MG CAPSULE.DR PO (09:25)
[2021-10-28] MEDS: Lithium Carbonate 300 MG TABLET PO ×2 (09:26→20:06)
[2021-10-28] MEDS: Cyanocobalamin (Vitamin B-12) 100 MCG TABLET PO (09:26)
[2021-10-28] MEDS: Diclofenac Sodium Delayed Rel 50 MG TABLET.DR PO ×3 (09:26→20:06)
[2021-10-28] MEDS: Gabapentin 400 MG CAPSULE 800 MG PO ×3 (09:27→20:06)
[2021-10-28] MEDS: amLODIPine Besylate 2.5 MG TABLET PO (09:27)
[2021-10-28] MEDS: Clotrimazole 1 % Cream 15 GM TUBE 1 APPL TOPICAL (10:08)
[2021-10-28] MEDS: Mineral Oil/Petrolatum,White 106 GM Tube 1 APPL TOPICAL (10:08)
[2021-10-28] MEDS: Calcium Carbonate 750 MG TAB.CHEW PO (11:26)
[2021-10-28] MEDS: Nicotine Polacrilex 2 MG GUM 4 MG BUCCAL ×3 (11:26→20:07)
[2021-10-28] MEDS: Magnesium Citrate 300 ML SOLUTION PO (15:26)
--- NOTE | 2021-10-28 17:32 | P.PNPSI_ITS ---
Subjective Subjective Date of Service: 10/28/21 Reason For Visit: Bipolar, Schizoaffective Subjective Notes: Conditional Voluntary Interim History: Blanca discussed anxiety regarding discharge planning today. Team is attempting to continue to work with [facility] to transition her to the local area. Medication Compliance: Yes Side effects from medications: No Attending Groups: No Review of Systems Acute medical concerns: No Medical Review of Systems: unchanged Review of Systems Psychiatric: Reports anxiety, Reports depression, Reports hopelessness and Reports irritability Mental Status Exam Mental Status Exam Patient Appearance: Disheveled Patient Orientation: Person, Place, Time and Situation Level of Consciousness: Alert Patient Behavior: Talkative, Cooperative, Suspicious and Good Eye Contact Mood Description: Suspicious, Fearful, Sad and Apprehensive Affect Description: Constricted Patient Cognition Impaired: No Ability to Follow Directions: Good Speech Pattern: Spontaneous Speech Memory Description: Episodic Impaired Hallucinations: Auditory (talks with her cat and with people- I always have .) Delusions: Not Present Perceptual Disturbances: Depersonalization and Derealization Thought Process: Distracted and Rumination Thought Content: positive for Perseveration Depressive Symptoms: Increased Anxiety, Hopelessness, Unhappiness and Difficulty Concentrating Judgement: Fair Diagnostics Vital Signs (24Hr): Vital Signs - 24 hr 10/28/21 09:21 Temperature 98.1 F Pulse Rate 74 Blood Pressure 132/68 Pulse Oximetry 96 BMI result Body Mass Index 32.8 Labs Results: 10/29/21 07:54 10/29/21 07:54 Imaging Radiology Impressions: ITS Impressions Abdomen Ultrasound 09/01/21 08:59 IMPRESSION: Slightly echogenic liver. Limited evaluation of the gallbladder as the patient has recently eaten. No gallstone seen. Limited visualization of the pancreas. Hip X-Ray 09/16/21 14:47 IMPRESSION: Moderate to severe left hip arthritis. Medications Medications Current Medications Acetaminophen (Acetaminophen 325 Mg Tablet) 975 mg PO Q6H PRN PRN Reason: Headache/Pain Mild Scale (1-3) Last Admin: 10/14/21 18:18 Dose: 975 mg Documented by: Al Hydroxide/Mg Hydroxide (Magnesium Hydrox/Alum Hydrox 30 Ml Oral.Susp) 30 ml PO Q6H PRN PRN Reason: Heartburn/Nausea Last Admin: 08/22/21 05:54 Dose: 30 ml Documented by: Amlodipine Besylate (Amlodipine Besylate 2.5 Mg Tablet) 2.5 mg PO DAILY YAYA; Protocol Last Admin: 10/28/21 09:27 Dose: 2.5 mg Documented by: Artificial Tears (Artificial Tears 15 Ml Drops) 2 drop EYE-BOTH Q4H PRN PRN Reason: Dry Eyes Last Admin: 10/24/21 08:47 Dose: 2 drop Documented by: Aspirin (Aspirin Enteric Coated 325 Mg Tablet.) 650 mg PO DAILY PRN PRN Reason: headache Last Admin: 09/06/21 12:18 Dose: 650 mg Documented by: Benzocaine (Benzocaine 20 % Oral Gel 9 Gm Tube) 1 appl MUCOUS MEM QID PRN; Protocol PRN Reason: Mouth Sore Pain Last Admin: 08/31/21 03:05 Dose: 1 appl Documented by: Calcium Carbonate (Calcium Carbonate 500 Mg Tablet) 500 mg PO DAILY [facility] Last Admin: 10/28/21 09:26 Dose: 500 mg Documented by: Calcium Carbonate (Calcium Carbonate 750 Mg Tab.Chew) 750 mg PO Q4H PRN PRN Reason: Heartburn Last Admin: 10/25/21 10:39 Dose: 750 mg Documented by: Calcium Carbonate (Calcium Carbonate 750 Mg Tab.Chew) 750 mg PO Q4H PRN PRN Reason: Dyspepsia Last Admin: 10/28/21 11:26 Dose: 750 mg Documented by: Clotrimazole (Clotrimazole 1 % Cream 15 Gm Tube) 1 appl TOPICAL BID [facility]; Protocol Last Admin: 10/28/21 10:08 Dose: 1 appl Documented by: [place] Butter/Zinc Oxide ([place] Butter/Zinc Oxide Supp.Rect) 1 supp PA BEDTIME PRN PRN Reason: hemorrhoid pain Last Admin: 09/13/21 21:15 Dose: 1 supp Documented by: Cyanocobalamin (Cyanocobalamin (Vitamin B-12) 100 Mcg Tablet) 100 mcg PO DAILY [facility] [place] Last Admin: 10/28/21 09:26 Dose: 100 mcg Documented by: Diclofenac Sodium (Diclofenac Sodium Delayed Rel 50 Mg Tablet.) 50 mg PO TID YAYA Last Admin: 10/28/21 14:51 Dose: 50 mg Documented by: Diphenhydramine HCl (Diphenhydramine Hcl 25 Mg Tablet) 50 mg PO Q6H PRN PRN Reason: eps Last Admin: 09/22/21 23:48 Dose: 50 mg Documented by: Docusate Sodium (Docusate Sodium 100 Mg Capsule) 100 mg PO BID PRN PRN Reason: Constipation Duloxetine HCl (Duloxetine Hcl 30 Mg Capsule.Dr) 30 mg PO DAILY [facility] [place] Last Admin: 10/28/21 09:25 Dose: 30 mg Documented by: Gabapentin (Gabapentin 400 Mg Capsule) 800 mg PO TID [facility] Last Admin: 10/28/21 14:51 Dose: 800 mg Documented by: Gabapentin (Gabapentin 100 Mg Capsule) 100 mg PO TID PRN PRN Reason: neuropathic pain Last Admin: 09/26/21 17:14 Dose: 100 mg Documented by: Hydroxyzine HCl (Hydroxyzine Hcl 25 Mg Tablet) 25 mg PO BEDTIME PRN PRN Reason: Anxiety Last Admin: 09/22/21 23:48 Dose: 25 mg Documented by: Hydroxyzine HCl (Hydroxyzine Hcl 25 Mg Tablet) 25 mg PO BEDTIME [facility] [place] Last Admin: 10/27/21 21:40 Dose: 25 mg Documented by: Lidocaine (Lidocaine 4 % Patch Adh..Patch) 1 patch TRANSDERMA DAILY [facility] [place]; Protocol Last Admin: 10/28/21 09:27 Dose: Not Given Documented by: Lidocaine (Lidocaine 4 % Patch Adh..Patch) 1 patch TRANSDERMA DAILY [facility] [place]; Protocol Last Admin: 10/28/21 09:28 Dose: Not Given Documented by: [place] Carbonate ([place] Carbonate 300 Mg Tablet) 300 mg PO BID [facility] [place] Last Admin: 10/28/21 09:26 Dose: 300 mg Documented by: Lorazepam (Lorazepam 1 Mg Tablet) 1 mg PO TID PRN PRN Reason: anxiety/restlessness Last Admin: 10/27/21 21:55 Dose: 1 mg Documented by: Magnesium Citrate (Magnesium Citrate 300 Ml Solution) 300 ml PO DAILY PRN PRN Reason: Constipation Last Admin: 10/28/21 15:26 Dose: 300 ml Documented by: Magnesium Hydroxide (Milk Of Magnesia 30 Ml Oral.Susp) 30 ml PO DAILY PRN PRN Reason: Constipation Last Admin: 08/31/21 20:05 Dose: 30 ml Documented by: Melatonin (Melatonin 3 Mg Tablet) 9 mg PO BEDTIME [facility] [place] Last Admin: 10/27/21 21:41 Dose: 9 mg Documented by: Multi-Ingred Cream/Lotion/Oil/Oint (Mineral Oil/Petrolatum,White 106 Gm Tube) 1 appl TOPICAL BID [facility] [place]; Protocol Last Admin: 10/28/21 10:08 Dose: 1 appl Documented by: Multivitamins/Vitamin C (Multivitamin Tablet) 1 tab PO DAILY [facility] Last Admin: 10/28/21 09:25 Dose: 1 tab Documented by: Nicotine (Nicotine 14 Mg Patch.Td24) 14 mg TRANSDERMA DAILY [facility] [place] Last Admin: 10/27/21 09:54 Dose: 14 mg Documented by: Nicotine Polacrilex (Nicotine Polacrilex 2 Mg Gum) 4 mg BUCCAL Q1H PRN PRN Reason: Nicotine Cravings Last Admin: 10/28/21 15:32 Dose: 4 mg Documented by: Patient Own Medication (Dry Eye Relief) 1 each EYE-BOTH QID [facility] [place] Last Admin: 10/28/21 16:14 Dose: Not Given Documented by: Psyllium Hydrophilic Mucilloid (Psyllium Seed 3.4 Gm Powd.Pack) 3.4 gm PO DAILY [facility] Last Admin: 10/28/21 09:29 Dose: 3.4 gm Documented by: Quetiapine Fumarate (Quetiapine Fumarate 200 Mg Tablet) 200 mg PO Q6H PRN PRN Reason: anxiety/restlessness Last Admin: 09/21/21 02:38 Dose: 200 mg Documented by: Quetiapine Fumarate (Quetiapine Fumarate 100 Mg Tablet) 100 mg PO DAILY [facility] [place] Last Admin: 10/28/21 09:25 Dose: 100 mg Documented by: Quetiapine Fumarate (Quetiapine Fumarate 300 Mg Tablet) 600 mg PO BEDTIME [facility] Last Admin: 10/27/21 22:00 Dose: 600 mg Documented by: Ropinirole HCl (Ropinirole Hcl 0.5 Mg Tablet) 0.5 mg PO 0800 [facility] Last Admin: 10/28/21 09:25 Dose: 0.5 mg Documented by: Ropinirole HCl (Ropinirole Hcl 1 Mg Tablet) 2 mg PO DAILY@1900 [facility] Last Admin: 10/27/21 19:53 Dose: 2 mg Documented by: Senna/Docusate Sodium (Sennosides/Docusate Sodium Tablet) 1 tab PO BID [facility] Last Admin: 10/28/21 09:25 Dose: 1 tab Documented by: Simethicone (Simethicone 80 Mg Tab.Chew) 80 mg PO QIDWMHS PRN PRN Reason: indigestion Sodium Chloride (Sodium Chloride 0.65 % Nasal 44 Ml Sprbtl) 1 spray NOSTRIL-B Q1H PRN PRN Reason: congestion Last Admin: 10/18/21 09:40 Dose: 1 spray Documented by: Trolamine Salicylate/Aloe Vera (Trolamine Salicylate 10%/Aloe Cream 35.4 Gm) 1 appl TOPICAL TID PRN PRN Reason: sciatica Last Admin: 09/03/21 05:27 Dose: 1 appl Documented by: Vitamin D (Cholecalciferol (Vitamin D3) 10 Mcg Tablet) 10 mcg PO DAILY [facility]AYA Last Admin: 10/28/21 09:25 Dose: 10 mcg Documented by: Allergies Allergies Allergy/AdvReac Type Severity Reaction Status Date / Time aripiprazole [From Abilify] Allergy Unknown Involuntary Verified 08/19/21 07:20 Spasms chlorpromazine Allergy Unknown Nausea and Verified 08/19/21 07:20 [From Thorazine] Vomiting haloperidol [From Haldol] Allergy Unknown Involuntary Verified 08/19/21 07:20 Spasms olanzapine [From Zyprexa] Allergy Unknown Involuntary Verified 08/19/21 07:20 Spasms paliperidone [From Invega] Allergy Unknown Hallucinati Verified 08/19/21 07:20 ons risperidone Allergy Unknown Involuntary Verified 08/19/21 07:20 Spasms Assessment & Plan Assessment & Plan (1) Schizoaffective disorder, bipolar type: Status: Acute Code(s): F25.0 - Schizoaffective disorder, bipolar type Assessment and Plan: Continue current plan (2) Lumbar radiculopathy: Status: Acute Code(s): M54.16 - Radiculopathy, lumbar region (3) Hip pain, left: Status: Acute Code(s): M25.552 - Pain in left hip Plan 09/20/21- Improving. Transition planning with [facility]. Pt is looking at discharge to a rest home and transitioning to [facility] services in [facility]. No medication changes today. 09/21: stable on current medications. on seroquel and lithium, c/o of hip pain on ibuprofen with partial response. no behavioral concerns. no overt delusional content nor psychosis noted. 09/22/21: Continue plan of care. 09/23/21: Ortho consult-Left hip pain Pt has requested a flu shot. Discharge planning-pt considering a rest home as a temporary placement. 09/24 continue per primary treatment team. 09/25: no med changes, pt is sig less manic 09/27/21: Continue plan of care. Transitioning from [facility] to local office. 09/28/21: Continue plan of care. Support in transition and discharge planning. Refusal of [place] discussed with Blanca. Discussed other options- she will consider. 10/01/21: Continue plan of care. Fe, TIBC, ESR, CRP, RF, Vit D, CCP 10/03/21: Discontinue clonidine, mirtazapine Change diclofenic to 50 mg tid 10/06/21 Continue current regime 10/07/21 Colace 100 mg bid, high fiber diet 10/10/2021 continue current plan discharge planning 10/11/2021: Continue current regimen and plans 10/12/21: Reports leg stiffness-?EPS-Benztropine 1 mg bid to begin 10/13. Vitamin D3 10 mcg daily 10/14/21: Continue current regime-await a response from a local rest home regarding placement. 10/15/21: Latuda 20 mg HS. Discontinue Colace 10/16: Continue current regimen and plans with addition of Cymbalta 30 mg and she has been refusing Latuda 20 mg 10/17: Continue current regimen and plans and discontinue Latuda 10/18: Discontinue Cymbalta due to high risk of mood cycling. Pt declines other interventions at this time. 10/20/21: Discontinue Wellbutrin (one day trial-pt is not interested) Cymbalta 20 mg daily to begin on 10/21/21. 10/21/21: Continue current regime. Monitor for mood changes Possible rest home option for pt-discharge planning-alf placement should this not work out. 10/22/21: Increase Cymbalta to 30 mg daily 10/23/21: No change to the above 10/24/21: No change 10/25/21: Blanca is attempting to make sense of why her previous team has been inactive in transferring her funds and paperwork to [facility]. She has many ideas and today thought she should ask if we planned to take margie conservatorship of her and this is why the [facility] team has not sent her financial resources and paperwork. We discussed this and that there was not a plan to do this. She is anxious that she has not been accepted by local rest homes or respite as this transfer has not occurred and worries about going to a alf. She reports she has a new insurance, [employer], however they cannot help her until her care is transitioned to [facility] services. She discussed talking with her cat and friends and relatives. She clarifies that this is not a symptom of illness but something she has done since youth to remain connected. No regime changes today. 10/27/21 Continue to support pt with transition Continue current regime 10/28/21 Continue current regime I spent minutes with the patient and/or on the patient floor today, greater than?50% of which was spent counseling/coordinating care. Patient educated on: therapeutic strategies Informed Consent: understands Reason for contiued inpatient stay Substantial Risk for: inability to function and rapid decompensation
[2021-10-28 18:00] VITALS: BP 137/80; PULSE 80
[2021-10-28] MEDS: rOPINIRole HCL 1 MG TABLET 2 MG PO (18:29)
[2021-10-28] MEDS: QUEtiapine Fumarate 300 MG TABLET 600 MG PO (20:06)
[2021-10-28] MEDS: Melatonin 3 MG TABLET 9 MG PO (20:06)
[2021-10-28] MEDS: hydrOXYzine HCL 25 MG TABLET PO (20:06)
[2021-10-28] MEDS: LORazepam 1 MG TABLET PO (20:07)
[2021-10-29 06:00] VITALS: BP 130/88; PULSE 88; RESP 14; TEMP 36.6
[2021-10-29 08:12] LABS: MANUAL DIFF FLAG NO
[2021-10-29 08:19] LABS: Basophils Percent Auto 0.5 % (0-2); Eosinophils Absolute Auto 0.3 X10*3/uL (0.0-0.4); Eosinophils Percent Auto 5.3 % (0-4); Hematocrit 41.2 % (37.0-47.0); Hemoglobin 13.4 g/dl (12.0-16.0); Imm Gran Abs Auto 0.02 X10*3/uL (0.00-0.03); Imm Gran Pct Auto 0.3 % (0.0-0.4); Lymphocytes Absolute Auto 1.4 X10*3/uL (1.2-4.9); Lymphocytes Percent Auto 24.4 % (20-40); Mean Corpuscular HGB Conc 32.5 g/dl (31.0-35.0); Mean Corpuscular Hemoglobin 31.2 pg (27.0-33.0); Mean Corpuscular Volume 95.8 fL (80.0-98.0); Mean Platelet Volume 9.7 fL (9.4-12.3); Monocytes Absolute Auto 0.3 X10*3/uL (0.1-1.2); Monocytes Percent Auto 4.3 % (2-11); Neutrophils Absolute Auto 3.8 x10*3/uL (2.0-8.3); Neutrophils Percent Auto 65.2 % (45-73); Platelet Count 309 X10*3/uL (160-400); Red Cell Distribution Width 12.3 % (11.0-16.0); White Blood Count 5.9 X10*3/uL (4.8-10.8)
[2021-10-29 08:33] LABS: Estimated Average Glucose 120 mg/dL; Hemoglobin A1c % 5.8 %
[2021-10-29 08:42] LABS: Alanine Aminotransferase 19 U/L (0-31); Albumin Level 4.3 g/dL (3.5-5.0); Alkaline Phosphatase 107 U/L (39-117); Anion Gap 12 (12-20); Aspartate Amino Transferase 17 U/L (5-31); Bilirubin Total 0.6 mg/dL (0.0-1.0); Blood Urea Nitrogen 26 mg/dL (9-16); Calcium 10.4 mg/dL (8.4-10.2); Carbon Dioxide 29 mmol/L (22-29); Chloride 104 mmol/L (96-108); Cholesterol 277 mg/dL; Creatinine Clr Calc Pharmacy 55.9; Estimated Glomerular Filt Rate 43; Glucose Random 119 mg/dL (60-115); HDL Cholesterol 57 mg/dL; LDL Cholesterol Calculated 180 mg/dl; Potassium 4.9 mmol/L (3.3-5.1); Sodium 140 mmol/L (135-145); Total Protein 6.9 g/dL (6.5-8.0); Triglycerides 202 mg/dL
[2021-10-29 09:08] LABS: Thyroid Stimulating Hormone 4.76 uIU/mL (0.32-4.0); Vitamin D 25-OH Total 26.6 ng/mL (>30)
[2021-10-29] MEDS: Nicotine 14 MG PATCH.TD24 TRANSDERMA (09:15)
[2021-10-29] MEDS: Lithium Carbonate 300 MG TABLET PO ×2 (09:16→20:08)
[2021-10-29] MEDS: QUEtiapine Fumarate 100 MG TABLET PO (09:16)
[2021-10-29] MEDS: Diclofenac Sodium Delayed Rel 50 MG TABLET.DR PO ×3 (09:16→20:08)
[2021-10-29] MEDS: amLODIPine Besylate 2.5 MG TABLET PO (09:16)
[2021-10-29] MEDS: Multivitamin TABLET 1 TAB PO (09:16)
[2021-10-29] MEDS: rOPINIRole HCL 0.5 MG TABLET PO (09:17)
[2021-10-29] MEDS: Sennosides/Docusate Sodium TABLET 1 TAB PO ×2 (09:17→20:08)
[2021-10-29] MEDS: DULoxetine HCl 30 MG CAPSULE.DR PO (09:17)
[2021-10-29] MEDS: Gabapentin 400 MG CAPSULE 800 MG PO ×3 (09:17→20:08)
[2021-10-29] MEDS: Nicotine Polacrilex 2 MG GUM 4 MG BUCCAL ×3 (09:17→18:05)
[2021-10-29] MEDS: Cholecalciferol (Vitamin D3) 10 MCG TABLET PO (09:17)
[2021-10-29] MEDS: Cyanocobalamin (Vitamin B-12) 100 MCG TABLET PO (09:26)
[2021-10-29 12:50] LABS: Folate > 20.0 ng/mL (> or = 4.0); Vitamin B12 829 pg/mL (200-900)
[2021-10-29] MEDS: Sodium Chloride 0.65 % Nasal 44 ML SPRBTL 1 SPRAY NOSTRIL-B (14:49)
--- NOTE | 2021-10-29 17:44 | HO.PSYCHPN ---
Subjective Subjective Date of Service: 10/29/21 Reason For Visit: Bipolar, Schizoaffective Subjective Notes: Conditional Voluntary Interim History: Blanca reports Cymbalta is tolerated, somewhat effective. She remains anxious regarding discharge planning and placement. Team reports [facility] directors from both [facility] and [facility] are discussing her transfer. Medication Compliance: Yes Side effects from medications: No Attending Groups: No Review of Systems Acute medical concerns: No Medical Review of Systems: unchanged Review of Systems Psychiatric: Reports anxiety, Reports depression, Reports hopelessness and Reports irritability Mental Status Exam Mental Status Exam Patient Appearance: Disheveled Patient Orientation: Person, Place, Time and Situation Level of Consciousness: Alert Patient Behavior: Talkative, Cooperative, Suspicious and Good Eye Contact Mood Description: Suspicious, Fearful, Sad and Apprehensive Affect Description: Constricted Patient Cognition Impaired: No Ability to Follow Directions: Good Speech Pattern: Spontaneous Speech Memory Description: Episodic Impaired Hallucinations: Auditory (talks with her cat and with people- I always have .) Delusions: Not Present Perceptual Disturbances: Depersonalization and Derealization Thought Process: Distracted and Rumination Thought Content: positive for Perseveration Depressive Symptoms: Increased Anxiety, Hopelessness, Unhappiness and Difficulty Concentrating Judgement: Fair Diagnostics Vital Signs (24Hr): Vital Signs - 24 hr 10/28/21 18:00 10/29/21 06:00 Temperature 98 F Pulse Rate 80 88 Respiratory Rate 14 Blood Pressure 137/80 130/88 BMI result Body Mass Index 32.8 Labs Results: 10/29/21 07:54 10/29/21 07:54 Labs: Laboratory Results - last 48 hr 10/29/21 10/29/21 10/29/21 07:54 07:54 07:54 WBC 5.9 RBC 4.30 Hgb 13.4 Hct 41.2 MCV 95.8 MCH 31.2 MCHC 32.5 RDW 12.3 Plt Count 309 MPV 9.7 Immature Gran % (Auto) 0.3 Neut % (Auto) 65.2 Lymph % (Auto) 24.4 Daniels % (Auto) 4.3 Eos % (Auto) 5.3 H Baso % (Auto) 0.5 Lymph # (Auto) 1.4 Daniels # (Auto) 0.3 Eos # (Auto) 0.3 Baso # (Auto) 0.0 Abs Immat Gran (auto) 0.02 Absolute Neuts (auto) 3.8 Absolute Nucleated RBC 0.000 Nucleated RBC % (auto) 0.0 Sodium 140 Potassium 4.9 Chloride 104 Carbon Dioxide 29 Anion Gap 12 BUN 26 H Creatinine 1.30 Estim Creat Clear Calc 55.9 Estimated GFR 43 Random Glucose 119 H Estimat Average Glucose 120 Hemoglobin A1c % 5.8 Calcium 10.4 H D Total Bilirubin 0.6 AST 17 ALT 19 Alkaline Phosphatase 107 D Total Protein 6.9 Albumin 4.3 Triglycerides 202 Cholesterol 277 LDL Cholesterol, Calc 180 HDL Cholesterol 57 D Vitamin B12 25-OH Vitamin D Total 26.6 Folate TSH 4.76 H 10/29/21 07:54 WBC RBC Hgb Hct MCV MCH MCHC RDW Plt Count MPV Immature Gran % (Auto) Neut % (Auto) Lymph % (Auto) Daniels % (Auto) Eos % (Auto) Baso % (Auto) Lymph # (Auto) Daniels # (Auto) Eos # (Auto) Baso # (Auto) Abs Immat Gran (auto) Absolute Neuts (auto) Absolute Nucleated RBC Nucleated RBC % (auto) Sodium Potassium Chloride Carbon Dioxide Anion Gap BUN Creatinine Estim Creat Clear Calc Estimated GFR Random Glucose Estimat Average Glucose Hemoglobin A1c % Calcium Total Bilirubin AST ALT Alkaline Phosphatase Total Protein Albumin Triglycerides Cholesterol LDL Cholesterol, Calc HDL Cholesterol Vitamin B12 829 25-OH Vitamin D Total Folate > 20.0 TSH Imaging Radiology Impressions: ITS Impressions Abdomen Ultrasound 09/01/21 08:59 IMPRESSION: Slightly echogenic liver. Limited evaluation of the gallbladder as the patient has recently eaten. No gallstone seen. Limited visualization of the pancreas. Hip X-Ray 09/16/21 14:47 IMPRESSION: Moderate to severe left hip arthritis. Medications Medications Current Medications Acetaminophen (Acetaminophen 325 Mg Tablet) 975 mg PO Q6H PRN PRN Reason: Headache/Pain Mild Scale (1-3) Last Admin: 10/14/21 18:18 Dose: 975 mg Documented by: Al Hydroxide/Mg Hydroxide (Magnesium Hydrox/Alum Hydrox 30 Ml Oral.Susp) 30 ml PO Q6H PRN PRN Reason: Heartburn/Nausea Last Admin: 08/22/21 05:54 Dose: 30 ml Documented by: Amlodipine Besylate (Amlodipine Besylate 2.5 Mg Tablet) 2.5 mg PO DAILY YAYA; Protocol Last Admin: 10/29/21 09:16 Dose: 2.5 mg Documented by: Artificial Tears (Artificial Tears 15 Ml Drops) 2 drop EYE-BOTH Q4H PRN PRN Reason: Dry Eyes Last Admin: 10/24/21 08:47 Dose: 2 drop Documented by: Aspirin (Aspirin Enteric Coated 325 Mg Tablet.) 650 mg PO DAILY PRN PRN Reason: headache Last Admin: 09/06/21 12:18 Dose: 650 mg Documented by: Benzocaine (Benzocaine 20 % Oral Gel 9 Gm Tube) 1 appl MUCOUS MEM QID PRN; Protocol PRN Reason: Mouth Sore Pain Last Admin: 08/31/21 03:05 Dose: 1 appl Documented by: Calcium Carbonate (Calcium Carbonate 500 Mg Tablet) 500 mg PO DAILY [facility] Last Admin: 10/29/21 09:16 Dose: 500 mg Documented by: Calcium Carbonate (Calcium Carbonate 750 Mg Tab.Chew) 750 mg PO Q4H PRN PRN Reason: Heartburn Last Admin: 10/25/21 10:39 Dose: 750 mg Documented by: Calcium Carbonate (Calcium Carbonate 750 Mg Tab.Chew) 750 mg PO Q4H PRN PRN Reason: Dyspepsia Last Admin: 10/28/21 11:26 Dose: 750 mg Documented by: Clotrimazole (Clotrimazole 1 % Cream 15 Gm Tube) 1 appl TOPICAL BID [facility]; Protocol Last Admin: 10/29/21 09:25 Dose: Not Given Documented by: Mondovi Butter/Zinc Oxide (M[place]ovi Butter/Zinc Oxide Supp.Rect) 1 supp MO BEDTIME PRN PRN Reason: hemorrhoid pain Last Admin: 09/13/21 21:15 Dose: 1 supp Documented by: Cyanocobalamin (Cyanocobalamin (Vitamin B-12) 100 Mcg Tablet) 100 mcg PO DAILY [facility] Last Admin: 10/29/21 09:26 Dose: 100 mcg Documented by: Diclofenac Sodium (Diclofenac Sodium Delayed Rel 50 Mg Tablet.) 50 mg PO TID [facility] Last Admin: 10/29/21 14:46 Dose: 50 mg Documented by: Diphenhydramine HCl (Diphenhydramine Hcl 25 Mg Tablet) 50 mg PO Q6H PRN PRN Reason: eps Last Admin: 09/22/21 23:48 Dose: 50 mg Documented by: Docusate Sodium (Docusate Sodium 100 Mg Capsule) 100 mg PO BID PRN PRN Reason: Constipation Duloxetine HCl (Duloxetine Hcl 30 Mg Capsule.) 30 mg PO DAILY [facility] Last Admin: 10/29/21 09:17 Dose: 30 mg Documented by: Gabapentin (Gabapentin 400 Mg Capsule) 800 mg PO TID [facility] Last Admin: 10/29/21 14:46 Dose: 800 mg Documented by: Gabapentin (Gabapentin 100 Mg Capsule) 100 mg PO TID PRN PRN Reason: neuropathic pain Last Admin: 09/26/21 17:14 Dose: 100 mg Documented by: Hydroxyzine HCl (Hydroxyzine Hcl 25 Mg Tablet) 25 mg PO BEDTIME PRN PRN Reason: Anxiety Last Admin: 09/22/21 23:48 Dose: 25 mg Documented by: Hydroxyzine HCl (Hydroxyzine Hcl 25 Mg Tablet) 25 mg PO BEDTIME [facility] Last Admin: 10/28/21 20:06 Dose: 25 mg Documented by: Lidocaine (Lidocaine 4 % Patch Adh..Patch) 1 patch TRANSDERMA DAILY [facility]; Protocol Last Admin: 10/29/21 09:26 Dose: Not Given Documented by: Crestone Carbonate (Crestone Carbonate 300 Mg Tablet) 300 mg PO BID [facility] Last Admin: 10/29/21 09:16 Dose: 300 mg Documented by: Lorazepam (Lorazepam 1 Mg Tablet) 1 mg PO TID PRN PRN Reason: anxiety/restlessness Last Admin: 10/28/21 20:07 Dose: 1 mg Documented by: Magnesium Citrate (Magnesium Citrate 300 Ml Solution) 300 ml PO DAILY PRN PRN Reason: Constipation Last Admin: 10/28/21 15:26 Dose: 300 ml Documented by: Magnesium Hydroxide (Milk Of Magnesia 30 Ml Oral.Susp) 30 ml PO DAILY PRN PRN Reason: Constipation Last Admin: 08/31/21 20:05 Dose: 30 ml Documented by: Melatonin (Melatonin 3 Mg Tablet) 9 mg PO BEDTIME [facility] Last Admin: 10/28/21 20:06 Dose: 9 mg Documented by: Multi-Ingred Cream/Lotion/Oil/Oint (Mineral Oil/Petrolatum,White 106 Gm Tube) 1 appl TOPICAL BID [facility]; Protocol Last Admin: 10/29/21 09:26 Dose: Not Given Documented by: Multivitamins/Vitamin C (Multivitamin Tablet) 1 tab PO DAILY [facility] Last Admin: 10/29/21 09:16 Dose: 1 tab Documented by: Nicotine (Nicotine 14 Mg Patch.Td24) 14 mg TRANSDERMA DAILY [facility] Last Admin: 10/29/21 09:15 Dose: 14 mg Documented by: Nicotine Polacrilex (Nicotine Polacrilex 2 Mg Gum) 4 mg BUCCAL Q1H PRN PRN Reason: Nicotine Cravings Last Admin: 10/29/21 14:46 Dose: 4 mg Documented by: Patient Own Medication (Dry Eye Relief) 1 each EYE-BOTH QID [facility] Last Admin: 10/29/21 16:53 Dose: Not Given Documented by: Psyllium Hydrophilic Mucilloid (Psyllium Seed 3.4 Gm Powd.Pack) 3.4 gm PO DAILY [facility] Last Admin: 10/29/21 09:27 Dose: 3.4 gm Documented by: Quetiapine Fumarate (Quetiapine Fumarate 200 Mg Tablet) 200 mg PO Q6H PRN PRN Reason: anxiety/restlessness Last Admin: 09/21/21 02:38 Dose: 200 mg Documented by: Quetiapine Fumarate (Quetiapine Fumarate 100 Mg Tablet) 100 mg PO DAILY [facility] Last Admin: 10/29/21 09:16 Dose: 100 mg Documented by: Quetiapine Fumarate (Quetiapine Fumarate 300 Mg Tablet) 600 mg PO BEDTIME [facility] Last Admin: 10/28/21 20:06 Dose: 600 mg Documented by: Ropinirole HCl (Ropinirole Hcl 0.5 Mg Tablet) 0.5 mg PO 0800 [facility] Last Admin: 10/29/21 09:17 Dose: 0.5 mg Documented by: Ropinirole HCl (Ropinirole Hcl 1 Mg Tablet) 2 mg PO DAILY@1900 [facility] Last Admin: 10/28/21 18:29 Dose: 2 mg Documented by: Senna/Docusate Sodium (Sennosides/Docusate Sodium Tablet) 1 tab PO BID [facility] Last Admin: 10/29/21 09:17 Dose: 1 tab Documented by: Simethicone (Simethicone 80 Mg Tab.Chew) 80 mg PO QIDWMHS PRN PRN Reason: indigestion Sodium Chloride (Sodium Chloride 0.65 % Nasal 44 Ml Sprbtl) 1 spray NOSTRIL-B Q1H PRN PRN Reason: congestion Last Admin: 10/29/21 14:49 Dose: 1 spray Documented by: Trolamine Salicylate/Aloe Vera (Trolamine Salicylate 10%/Aloe Cream 35.4 Gm) 1 appl TOPICAL TID PRN PRN Reason: sciatica Last Admin: 09/03/21 05:27 Dose: 1 appl Documented by: Vitamin D (Cholecalciferol (Vitamin D3) 10 Mcg Tablet) 10 mcg PO DAILY [facility] Last Admin: 10/29/21 09:17 Dose: 10 mcg Documented by: Allergies Allergies Allergy/AdvReac Type Severity Reaction Status Date / Time aripiprazole [From Abilify] Allergy Unknown Involuntary Verified 08/19/21 07:20 Spasms chlorpromazine Allergy Unknown Nausea and Verified 08/19/21 07:20 [From Thorazine] Vomiting haloperidol [From Haldol] Allergy Unknown Involuntary Verified 08/19/21 07:20 Spasms olanzapine [From Zyprexa] Allergy Unknown Involuntary Verified 08/19/21 07:20 Spasms paliperidone [From Invega] Allergy Unknown Hallucinati Verified 08/19/21 07:20 ons risperidone Allergy Unknown Involuntary Verified 08/19/21 07:20 Spasms Assessment & Plan Assessment & Plan (1) Schizoaffective disorder, bipolar type: Status: Acute Code(s): F25.0 - Schizoaffective disorder, bipolar type Assessment and Plan: Continue current plan (2) Lumbar radiculopathy: Status: Acute Code(s): M54.16 - Radiculopathy, lumbar region (3) Hip pain, left: Status: Acute Code(s): M25.552 - Pain in left hip Plan 09/20/21- Improving. Transition planning with [facility]. Pt is looking at discharge to a rest home and transitioning to [facility] services in [facility]. No medication changes today. 2: stable on current medications. on seroquel and lithium, c/o of hip pain on ibuprofen with partial response. no behavioral concerns. no overt delusional content nor psychosis noted. 09/22/21: Continue plan of care. 09/23/21: Ortho consult-Left hip pain Pt has requested a flu shot. Discharge planning-pt considering a rest home as a temporary placement. 2 continue per primary treatment team. 2: no med changes, pt is sig less manic 09/27/21: Continue plan of care. Transitioning from [facility] to local office. 2/8/22: Continue plan of care. Support in transition and discharge planning. Refusal of Crestone discussed with Blanca. Discussed other options-she will consider. 10/01/21: Continue plan of care. Fe, TIBC, ESR, CRP, RF, Vit D, CCP 10/03/21: Discontinue clonidine, mirtazapine Change diclofenic to 50 mg tid 10/06/21 Continue current regime 10/07/21 Colace 100 mg bid, high fiber diet 10/10/2021 continue current plan discharge planning 10/11/2021: Continue current regimen and plans 10/12/21: Reports leg stiffness-?EPS-Benztropine 1 mg bid to begin 10/13. Vitamin D3 10 mcg daily 10/14/21: Continue current regime-await a response from a local rest home regarding placement. 10/15/21: Latuda 20 mg HS. Discontinue Colace 10/16: Continue current regimen and plans with addition of Cymbalta 30 mg and she has been refusing Latuda 20 mg 10/17: Continue current regimen and plans and discontinue Latuda 10/18: Discontinue Cymbalta due to high risk of mood cycling. Pt declines other interventions at this time. 10/20/21: Discontinue Wellbutrin (one day trial-pt is not interested) Cymbalta 20 mg daily to begin on 10/21/21. 10/21/21: Continue current regime. Monitor for mood changes Possible rest home option for pt-discharge planning-[facility] placement should this not work out. 10/22/21: Increase Cymbalta to 30 mg daily 10/23/21: No change to the above 10/24/21: No change 10/25/21: Blanca is attempting to make sense of why her previous team has been inactive in transferring her funds and paperwork to [facility]. She has many ideas and today thought she should ask if we planned to take margie conservatorship of her and this is why the [place] team has not sent her financial resources and paperwork. We discussed this and that there was not a plan to do this. She is anxious that she has not been accepted by local rest homes or respite as this transfer has not occurred and worries about going to a [facility]. She reports she has a new insurance, [employer], however they cannot help her until her care is transitioned to [facility] services. She discussed talking with her cat and friends and relatives. She clarifies that this is not a symptom of illness but something she has done since youth to remain connected. No regime changes today. 10/27/21 Continue to support pt with transition Continue current regime 10/28/21 Continue current regime 10/29/21 Support with discharge and transition. I spent minutes with the patient and/or on the patient floor today, greater than?50% of which was spent counseling/coordinating care. Patient educated on: other Informed Consent: understands and further education needed Reason for contiued inpatient stay Substantial Risk for: inability to function and rapid decompensation
[2021-10-29] MEDS: rOPINIRole HCL 1 MG TABLET 2 MG PO (17:57)
[2021-10-29 18:00] VITALS: BP 143/75; PULSE 94
[2021-10-29] MEDS: LORazepam 1 MG TABLET PO (20:08)
[2021-10-29] MEDS: hydrOXYzine HCL 25 MG TABLET PO (20:08)
[2021-10-29] MEDS: QUEtiapine Fumarate 300 MG TABLET 600 MG PO (20:09)
[2021-10-29] MEDS: Melatonin 3 MG TABLET 9 MG PO (20:09)
[2021-10-30 08:55] VITALS: BP 117/87; PULSE 65; TEMP 36.3
[2021-10-30] MEDS: Clotrimazole 1 % Cream 15 GM TUBE 1 APPL TOPICAL (09:00)
[2021-10-30] MEDS: Nicotine 14 MG PATCH.TD24 TRANSDERMA (09:22)
[2021-10-30] MEDS: Acetaminophen 325 MG TABLET 975 MG PO (09:24)
[2021-10-30] MEDS: Sennosides/Docusate Sodium TABLET 1 TAB PO ×2 (09:25→20:51)
[2021-10-30] MEDS: LORazepam 1 MG TABLET PO ×3 (09:25→20:51)
[2021-10-30] MEDS: Diclofenac Sodium Delayed Rel 50 MG TABLET.DR PO ×3 (09:25→20:47)
[2021-10-30] MEDS: amLODIPine Besylate 2.5 MG TABLET PO (09:25)
[2021-10-30] MEDS: Multivitamin TABLET 1 TAB PO (09:25)
[2021-10-30] MEDS: rOPINIRole HCL 0.5 MG TABLET PO (09:25)
[2021-10-30] MEDS: Cholecalciferol (Vitamin D3) 10 MCG TABLET PO (09:25)
[2021-10-30] MEDS: DULoxetine HCl 30 MG CAPSULE.DR PO (09:26)
[2021-10-30] MEDS: QUEtiapine Fumarate 100 MG TABLET PO (09:26)
[2021-10-30] MEDS: Cyanocobalamin (Vitamin B-12) 100 MCG TABLET PO (09:26)
[2021-10-30] MEDS: Gabapentin 400 MG CAPSULE 800 MG PO ×3 (09:26→20:51)
[2021-10-30] MEDS: Nicotine Polacrilex 2 MG GUM 4 MG BUCCAL ×4 (09:26→19:26)
[2021-10-30] MEDS: Sodium Chloride 0.65 % Nasal 44 ML SPRBTL 1 SPRAY NOSTRIL-B (09:27)
[2021-10-30] MEDS: Mineral Oil/Petrolatum,White 106 GM Tube 1 APPL TOPICAL (09:27)
[2021-10-30] MEDS: Lithium Carbonate 300 MG TABLET PO ×2 (14:34→20:51)
[2021-10-30] MEDS: polyethylene glycoL 3350 17 GM POWD.PACK PO (16:00)
[2021-10-30 18:00] VITALS: BP 124/60; PULSE 86; RESP 16; TEMP 36.5
[2021-10-30] MEDS: rOPINIRole HCL 1 MG TABLET 2 MG PO (19:22)
[2021-10-30] MEDS: QUEtiapine Fumarate 300 MG TABLET 600 MG PO (20:48)
[2021-10-30] MEDS: Melatonin 3 MG TABLET 9 MG PO (20:48)
[2021-10-30] MEDS: hydrOXYzine HCL 25 MG TABLET PO (20:51)
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
--- NOTE | 2021-10-30 23:35 | P.PNPSI_ITS ---
Subjective Subjective Date of Service: 10/30/21 Reason For Visit: Bipolar, Schizoaffective Interim History: pt pleasant, calm; constipated and asks for additional laxative. Mood a little down, waiting for dispo. Mental Status Exam Mental Status Exam Narrative: Pt is alert and oriented; behavior is cooperative, friendly and calm; patient is not in distress; dressed in casual attire and well groomed with good hygiene; mood is described as a little down and affect congruent; eye contact appropriate; Speech is normal rate, volume and prosody and not pressured; no psychomotor agitation/retardation present; thought process is organized and goal directed; Thought content is on tx, discharge; otherwise pertinent to relevant topics and without any delusional content, paranoid ideations or grandiosity; denies any SI/HI. There is no evidence of perceptual disturbance. Patients insight and judgment appear intact. Diagnostics Vital Signs (24Hr): Vital Signs - 24 hr 10/30/21 08:55 10/30/21 18:00 Temperature 97.4 F 97.7 F Pulse Rate 65 86 Respiratory Rate 16 Blood Pressure 117/87 124/60 BMI result Body Mass Index 32.8 Labs Results: 10/29/21 07:54 10/29/21 07:54 Labs: Laboratory Results - last 48 hr 10/29/21 10/29/21 10/29/21 07:54 07:54 07:54 WBC 5.9 RBC 4.30 Hgb 13.4 Hct 41.2 MCV 95.8 MCH 31.2 MCHC 32.5 RDW 12.3 Plt Count 309 MPV 9.7 Immature Gran % (Auto) 0.3 Neut % (Auto) 65.2 Lymph % (Auto) 24.4 Lawrence % (Auto) 4.3 Eos % (Auto) 5.3 H Baso % (Auto) 0.5 Lymph # (Auto) 1.4 Lawrence # (Auto) 0.3 Eos # (Auto) 0.3 Baso # (Auto) 0.0 Abs Immat Gran (auto) 0.02 Absolute Neuts (auto) 3.8 Absolute Nucleated RBC 0.000 Nucleated RBC % (auto) 0.0 Sodium 140 Potassium 4.9 Chloride 104 Carbon Dioxide 29 Anion Gap 12 BUN 26 H Creatinine 1.30 Estim Creat Clear Calc 55.9 Estimated GFR 43 Random Glucose 119 H Estimat Average Glucose 120 Hemoglobin A1c % 5.8 Calcium 10.4 H D Total Bilirubin 0.6 AST 17 ALT 19 Alkaline Phosphatase 107 D Total Protein 6.9 Albumin 4.3 Triglycerides 202 Cholesterol 277 LDL Cholesterol, Calc 180 HDL Cholesterol 57 D Vitamin B12 25-OH Vitamin D Total 26.6 Folate TSH 4.76 H 10/29/21 07:54 WBC RBC Hgb Hct MCV MCH MCHC RDW Plt Count MPV Immature Gran % (Auto) Neut % (Auto) Lymph % (Auto) Lawrence % (Auto) Eos % (Auto) Baso % (Auto) Lymph # (Auto) Lawrence # (Auto) Eos # (Auto) Baso # (Auto) Abs Immat Gran (auto) Absolute Neuts (auto) Absolute Nucleated RBC Nucleated RBC % (auto) Sodium Potassium Chloride Carbon Dioxide Anion Gap BUN Creatinine Estim Creat Clear Calc Estimated GFR Random Glucose Estimat Average Glucose Hemoglobin A1c % Calcium Total Bilirubin AST ALT Alkaline Phosphatase Total Protein Albumin Triglycerides Cholesterol LDL Cholesterol, Calc HDL Cholesterol Vitamin B12 829 25-OH Vitamin D Total Folate > 20.0 TSH Imaging Radiology Impressions: ITS Impressions Abdomen Ultrasound 09/01/21 08:59 IMPRESSION: Slightly echogenic liver. Limited evaluation of the gallbladder as the patient has recently eaten. No gallstone seen. Limited visualization of the pancreas. Hip X-Ray 09/16/21 14:47 IMPRESSION: Moderate to severe left hip arthritis. Medications Medications Current Medications Acetaminophen (Acetaminophen 325 Mg Tablet) 975 mg PO Q6H PRN PRN Reason: Headache/Pain Mild Scale (1-3) Last Admin: 10/30/21 09:24 Dose: 975 mg Documented by: Al Hydroxide/Mg Hydroxide (Magnesium Hydrox/Alum Hydrox 30 Ml Oral.Susp) 30 ml PO Q6H PRN PRN Reason: Heartburn/Nausea Last Admin: 08/22/21 05:54 Dose: 30 ml Documented by: Amlodipine Besylate (Amlodipine Besylate 2.5 Mg Tablet) 2.5 mg PO DAILY [facility]; Protocol Last Admin: 10/30/21 09:25 Dose: 2.5 mg Documented by: Artificial Tears (Artificial Tears 15 Ml Drops) 2 drop EYE-BOTH Q4H PRN PRN Reason: Dry Eyes Last Admin: 10/24/21 08:47 Dose: 2 drop Documented by: Aspirin (Aspirin Enteric Coated 325 Mg Tablet.) 650 mg PO DAILY PRN PRN Reason: headache Last Admin: 09/06/21 12:18 Dose: 650 mg Documented by: Benzocaine (Benzocaine 20 % Oral Gel 9 Gm Tube) 1 appl MUCOUS MEM QID PRN; Protocol PRN Reason: Mouth Sore Pain Last Admin: 08/31/21 03:05 Dose: 1 appl Documented by: Calcium Carbonate (Calcium Carbonate 500 Mg Tablet) 500 mg PO DAILY [facility] Last Admin: 10/30/21 09:26 Dose: 500 mg Documented by: Calcium Carbonate (Calcium Carbonate 750 Mg Tab.Chew) 750 mg PO Q4H PRN PRN Reason: Heartburn Last Admin: 10/25/21 10:39 Dose: 750 mg Documented by: Calcium Carbonate (Calcium Carbonate 750 Mg Tab.Chew) 750 mg PO Q4H PRN PRN Reason: Dyspepsia Last Admin: 10/28/21 11:26 Dose: 750 mg Documented by: Clotrimazole (Clotrimazole 1 % Cream 15 Gm Tube) 1 appl TOPICAL BID [facility]; Protocol Last Admin: 10/30/21 21:05 Dose: Not Given Documented by: [place] Butter/Zinc Oxide ([place] Butter/Zinc Oxide Supp.Rect) 1 supp UT BEDTIME PRN PRN Reason: hemorrhoid pain Last Admin: 09/13/21 21:15 Dose: 1 supp Documented by: Cyanocobalamin (Cyanocobalamin (Vitamin B-12) 100 Mcg Tablet) 100 mcg PO DAILY [facility] Last Admin: 10/30/21 09:26 Dose: 100 mcg Documented by: Diclofenac Sodium (Diclofenac Sodium Delayed Rel 50 Mg Tablet.) 50 mg PO TID [facility] Last Admin: 10/30/21 20:47 Dose: 50 mg Documented by: Diphenhydramine HCl (Diphenhydramine Hcl 25 Mg Tablet) 50 mg PO Q6H PRN PRN Reason: eps Last Admin: 09/22/21 23:48 Dose: 50 mg Documented by: Docusate Sodium (Docusate Sodium 100 Mg Capsule) 100 mg PO BID PRN PRN Reason: Constipation Duloxetine HCl (Duloxetine Hcl 30 Mg Capsule.) 30 mg PO DAILY [facility] Last Admin: 10/30/21 09:26 Dose: 30 mg Documented by: Gabapentin (Gabapentin 400 Mg Capsule) 800 mg PO TID [facility] Last Admin: 10/30/21 20:51 Dose: 800 mg Documented by: Gabapentin (Gabapentin 100 Mg Capsule) 100 mg PO TID PRN PRN Reason: neuropathic pain Last Admin: 09/26/21 17:14 Dose: 100 mg Documented by: Hydroxyzine HCl (Hydroxyzine Hcl 25 Mg Tablet) 25 mg PO BEDTIME PRN PRN Reason: Anxiety Last Admin: 09/22/21 23:48 Dose: 25 mg Documented by: Hydroxyzine HCl (Hydroxyzine Hcl 25 Mg Tablet) 25 mg PO BEDTIME [facility] Last Admin: 10/30/21 20:51 Dose: 25 mg Documented by: Lidocaine (Lidocaine 4 % Patch Adh..Patch) 1 patch TRANSDERMA DAILY [facility]; Protocol Last Admin: 10/30/21 14:22 Dose: Not Given Documented by: [place] Carbonate ([place] Carbonate 300 Mg Tablet) 300 mg PO BID [facility] Last Admin: 10/30/21 20:51 Dose: 300 mg Documented by: Lorazepam (Lorazepam 1 Mg Tablet) 1 mg PO TID PRN PRN Reason: anxiety/restlessness Last Admin: 10/30/21 20:51 Dose: 1 mg Documented by: Magnesium Citrate (Magnesium Citrate 300 Ml Solution) 300 ml PO DAILY PRN PRN Reason: Constipation Last Admin: 10/28/21 15:26 Dose: 300 ml Documented by: Magnesium Hydroxide (Milk Of Magnesia 30 Ml Oral.Susp) 30 ml PO DAILY PRN PRN Reason: Constipation Last Admin: 08/31/21 20:05 Dose: 30 ml Documented by: Melatonin (Melatonin 3 Mg Tablet) 9 mg PO BEDTIME [facility] Last Admin: 10/30/21 20:48 Dose: 9 mg Documented by: Multi-Ingred Cream/Lotion/Oil/Oint (Mineral Oil/Petrolatum,White 106 Gm Tube) 1 appl TOPICAL BID [facility]; Protocol Last Admin: 10/30/21 21:05 Dose: Not Given Documented by: Multivitamins/Vitamin C (Multivitamin Tablet) 1 tab PO DAILY [facility] Last Admin: 10/30/21 09:25 Dose: 1 tab Documented by: Nicotine (Nicotine 14 Mg Patch.Td24) 14 mg TRANSDERMA DAILY [facility] Last Admin: 10/30/21 09:22 Dose: 14 mg Documented by: Nicotine Polacrilex (Nicotine Polacrilex 2 Mg Gum) 4 mg BUCCAL Q1H PRN PRN Reason: Nicotine Cravings Last Admin: 10/30/21 19:26 Dose: 4 mg Documented by: Patient Own Medication (Dry Eye Relief) 1 each EYE-BOTH QID [facility] Last Admin: 10/30/21 20:58 Dose: 1 each Documented by: Polyethylene Glycol (Polyethylene Glycol 3350 17 Gm Powd.Pack) 17 gm PO DAILY PRN PRN Reason: Constipation Psyllium Hydrophilic Mucilloid (Psyllium Seed 3.4 Gm Powd.Pack) 3.4 gm PO DAILY [facility] Last Admin: 10/30/21 09:22 Dose: 3.4 gm Documented by: Quetiapine Fumarate (Quetiapine Fumarate 200 Mg Tablet) 200 mg PO Q6H PRN PRN Reason: anxiety/restlessness Last Admin: 09/21/21 02:38 Dose: 200 mg Documented by: Quetiapine Fumarate (Quetiapine Fumarate 100 Mg Tablet) 100 mg PO DAILY [facility] Last Admin: 10/30/21 09:26 Dose: 100 mg Documented by: Quetiapine Fumarate (Quetiapine Fumarate 300 Mg Tablet) 600 mg PO BEDTIME [facility] Last Admin: 10/30/21 20:48 Dose: 600 mg Documented by: Ropinirole HCl (Ropinirole Hcl 0.5 Mg Tablet) 0.5 mg PO 0800 [facility] Last Admin: 10/30/21 09:25 Dose: 0.5 mg Documented by: Ropinirole HCl (Ropinirole Hcl 1 Mg Tablet) 2 mg PO DAILY@1900 [facility] Last Admin: 10/30/21 19:22 Dose: 2 mg Documented by: Senna/Docusate Sodium (Sennosides/Docusate Sodium Tablet) 1 tab PO BID [facility] Last Admin: 10/30/21 20:51 Dose: 1 tab Documented by: Simethicone (Simethicone 80 Mg Tab.Chew) 80 mg PO QIDWMHS PRN PRN Reason: indigestion Sodium Chloride (Sodium Chloride 0.65 % Nasal 44 Ml Sprbtl) 1 spray NOSTRIL-B Q1H PRN PRN Reason: congestion Last Admin: 10/30/21 09:27 Dose: 1 spray Documented by: Trolamine Salicylate/Aloe Vera (Trolamine Salicylate 10%/Aloe Cream 35.4 Gm) 1 appl TOPICAL TID PRN PRN Reason: sciatica Last Admin: 09/03/21 05:27 Dose: 1 appl Documented by: Vitamin D (Cholecalciferol (Vitamin D3) 10 Mcg Tablet) 10 mcg PO DAILY [facility] Last Admin: 10/30/21 09:25 Dose: 10 mcg Documented by: Allergies Allergies Allergy/AdvReac Type Severity Reaction Status Date / Time aripiprazole [From Abilify] Allergy Unknown Involuntary Verified 08/19/21 07:20 Spasms chlorpromazine Allergy Unknown Nausea and Verified 08/19/21 07:20 [From Thorazine] Vomiting haloperidol [From Haldol] Allergy Unknown Involuntary Verified 08/19/21 07:20 Spasms olanzapine [From Zyprexa] Allergy Unknown Involuntary Verified 08/19/21 07:20 Spasms paliperidone [From Invega] Allergy Unknown Hallucinati Verified 08/19/21 07:20 ons risperidone Allergy Unknown Involuntary Verified 08/19/21 07:20 Spasms Assessment & Plan Assessment & Plan (1) Schizoaffective disorder, bipolar type: Status: Acute Code(s): F25.0 - Schizoaffective disorder, bipolar type (2) Lumbar radiculopathy: Status: Acute Code(s): M54.16 - Radiculopathy, lumbar region (3) Hip pain, left: Status: Acute Code(s): M25.552 - Pain in left hip 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 Reason for contiued inpatient stay Substantial Risk for: med/psych decompensation
[2021-10-31 10:00] VITALS: BP 116/69; PULSE 82; TEMP 37.2
[2021-10-31] MEDS: Mineral Oil/Petrolatum,White 106 GM Tube 1 APPL TOPICAL ×2 (10:15→20:35)
[2021-10-31] MEDS: Nicotine 14 MG PATCH.TD24 TRANSDERMA (10:16)
[2021-10-31] MEDS: Nicotine Polacrilex 2 MG GUM 4 MG BUCCAL ×3 (10:16→20:39)
[2021-10-31] MEDS: Diclofenac Sodium Delayed Rel 50 MG TABLET.DR PO ×3 (10:17→20:36)
[2021-10-31] MEDS: Cholecalciferol (Vitamin D3) 10 MCG TABLET PO (10:17)
[2021-10-31] MEDS: Gabapentin 400 MG CAPSULE 800 MG PO ×3 (10:17→20:37)
[2021-10-31] MEDS: DULoxetine HCl 30 MG CAPSULE.DR PO (10:17)
[2021-10-31] MEDS: Cyanocobalamin (Vitamin B-12) 100 MCG TABLET PO (10:18)
[2021-10-31] MEDS: amLODIPine Besylate 2.5 MG TABLET PO (10:18)
[2021-10-31] MEDS: Multivitamin TABLET 1 TAB PO (10:18)
[2021-10-31] MEDS: Sennosides/Docusate Sodium TABLET 1 TAB PO ×2 (10:18→20:37)
[2021-10-31] MEDS: Lithium Carbonate 300 MG TABLET PO ×2 (10:19→20:39)
[2021-10-31] MEDS: rOPINIRole HCL 0.5 MG TABLET PO (10:19)
[2021-10-31] MEDS: LORazepam 1 MG TABLET PO ×3 (10:19→20:38)
[2021-10-31] MEDS: QUEtiapine Fumarate 100 MG TABLET PO (10:19)
[2021-10-31] MEDS: Sodium Chloride 0.65 % Nasal 44 ML SPRBTL 1 SPRAY NOSTRIL-B ×2 (10:28→20:35)
[2021-10-31] MEDS: polyethylene glycoL 3350 17 GM POWD.PACK PO (10:33)
--- NOTE | 2021-10-31 17:27 | HO.PSYCHPN ---
Subjective Subjective Date of Service: 10/31/21 Reason For Visit: Bipolar, Schizoaffective Interim History: pt talked about struggle of waiting around for dispo, hoping that her [facility] services can transferred locally. 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 Pt friendly, appropriate, calm, easy to interact with. Mental Status Exam Mental Status Exam Narrative: Pt is alert and oriented; behavior is cooperative, friendly and calm; patient is not in distress; dressed in casual attire and well groomed with good hygiene; mood is described as a little down and affect congruent; eye contact appropriate; Speech is normal rate, volume and prosody and not pressured; no psychomotor agitation/retardation present; thought process is organized and goal directed; Thought content is on tx, discharge; otherwise pertinent to relevant topics and without any delusional content, paranoid ideations or grandiosity; denies any SI/HI. There is no evidence of perceptual disturbance. ?Patients insight and judgment appear intact. Diagnostics Vital Signs (24Hr): Vital Signs - 24 hr 10/30/21 18:00 10/31/21 10:00 Temperature 97.7 F 98.9 F Pulse Rate 86 82 Respiratory Rate 16 Blood Pressure 124/60 116/69 BMI result Body Mass Index 32.8 Labs Results: 10/29/21 07:54 10/29/21 07:54 Imaging Radiology Impressions: ITS Impressions Abdomen Ultrasound 09/01/21 08:59 IMPRESSION: Slightly echogenic liver. Limited evaluation of the gallbladder as the patient has recently eaten. No gallstone seen. Limited visualization of the pancreas. Hip X-Ray 09/16/21 14:47 IMPRESSION: Moderate to severe left hip arthritis. Medications Medications Current Medications Acetaminophen (Acetaminophen 325 Mg Tablet) 975 mg PO Q6H PRN PRN Reason: Headache/Pain Mild Scale (1-3) Last Admin: 10/30/21 09:24 Dose: 975 mg Documented by: Al Hydroxide/Mg Hydroxide (Magnesium Hydrox/Alum Hydrox 30 Ml Oral.Susp) 30 ml PO Q6H PRN PRN Reason: Heartburn/Nausea Last Admin: 08/22/21 05:54 Dose: 30 ml Documented by: Amlodipine Besylate (Amlodipine Besylate 2.5 Mg Tablet) 2.5 mg PO DAILY [facility]; Protocol Last Admin: 10/31/21 10:18 Dose: 2.5 mg Documented by: Artificial Tears (Artificial Tears 15 Ml Drops) 2 drop EYE-BOTH Q4H PRN PRN Reason: Dry Eyes Last Admin: 10/24/21 08:47 Dose: 2 drop Documented by: Aspirin (Aspirin Enteric Coated 325 Mg Tablet.) 650 mg PO DAILY PRN PRN Reason: headache Last Admin: 09/06/21 12:18 Dose: 650 mg Documented by: Benzocaine (Benzocaine 20 % Oral Gel 9 Gm Tube) 1 appl MUCOUS MEM QID PRN; Protocol PRN Reason: Mouth Sore Pain Last Admin: 08/31/21 03:05 Dose: 1 appl Documented by: Calcium Carbonate (Calcium Carbonate 500 Mg Tablet) 500 mg PO DAILY [facility] Last Admin: 10/31/21 10:19 Dose: 500 mg Documented by: Calcium Carbonate (Calcium Carbonate 750 Mg Tab.Chew) 750 mg PO Q4H PRN PRN Reason: Heartburn Last Admin: 10/25/21 10:39 Dose: 750 mg Documented by: Calcium Carbonate (Calcium Carbonate 750 Mg Tab.Chew) 750 mg PO Q4H PRN PRN Reason: Dyspepsia Last Admin: 10/28/21 11:26 Dose: 750 mg Documented by: Clotrimazole (Clotrimazole 1 % Cream 15 Gm Tube) 1 appl TOPICAL BID [facility]; Protocol Last Admin: 10/31/21 10:27 Dose: Not Given Documented by: [place] Butter/Zinc Oxide ([place] Butter/Zinc Oxide Supp.Rect) 1 supp [place] BEDTIME PRN PRN Reason: hemorrhoid pain Last Admin: 09/13/21 21:15 Dose: 1 supp Documented by: Cyanocobalamin (Cyanocobalamin (Vitamin B-12) 100 Mcg Tablet) 100 mcg PO DAILY [facility] Last Admin: 10/31/21 10:18 Dose: 100 mcg Documented by: Diclofenac Sodium (Diclofenac Sodium Delayed Rel 50 Mg Tablet.) 50 mg PO TID [facility] Last Admin: 10/31/21 16:13 Dose: 50 mg Documented by: Diphenhydramine HCl (Diphenhydramine Hcl 25 Mg Tablet) 50 mg PO Q6H PRN PRN Reason: eps Last Admin: 09/22/21 23:48 Dose: 50 mg Documented by: Docusate Sodium (Docusate Sodium 100 Mg Capsule) 100 mg PO BID PRN PRN Reason: Constipation Duloxetine HCl (Duloxetine Hcl 30 Mg Capsule.Dr) 30 mg PO DAILY [facility] Last Admin: 10/31/21 10:17 Dose: 30 mg Documented by: Gabapentin (Gabapentin 400 Mg Capsule) 800 mg PO TID [facility] Last Admin: 10/31/21 16:13 Dose: 800 mg Documented by: Gabapentin (Gabapentin 100 Mg Capsule) 100 mg PO TID PRN PRN Reason: neuropathic pain Last Admin: 09/26/21 17:14 Dose: 100 mg Documented by: Hydroxyzine HCl (Hydroxyzine Hcl 25 Mg Tablet) 25 mg PO BEDTIME PRN PRN Reason: Anxiety Last Admin: 09/22/21 23:48 Dose: 25 mg Documented by: Hydroxyzine HCl (Hydroxyzine Hcl 25 Mg Tablet) 25 mg PO BEDTIME [facility] Last Admin: 10/30/21 20:51 Dose: 25 mg Documented by: Lidocaine (Lidocaine 4 % Patch Adh..Patch) 1 patch TRANSDERMA DAILY [facility]; Protocol Last Admin: 10/31/21 10:27 Dose: Not Given Documented by: [place] Carbonate ([place] Carbonate 300 Mg Tablet) 300 mg PO BID [facility] Last Admin: 10/31/21 10:19 Dose: 300 mg Documented by: Lorazepam (Lorazepam 1 Mg Tablet) 1 mg PO TID PRN PRN Reason: anxiety/restlessness Last Admin: 10/31/21 16:18 Dose: 1 mg Documented by: Magnesium Citrate (Magnesium Citrate 300 Ml Solution) 300 ml PO DAILY PRN PRN Reason: Constipation Last Admin: 10/28/21 15:26 Dose: 300 ml Documented by: Magnesium Hydroxide (Milk Of Magnesia 30 Ml Oral.Susp) 30 ml PO DAILY PRN PRN Reason: Constipation Last Admin: 08/31/21 20:05 Dose: 30 ml Documented by: Melatonin (Melatonin 3 Mg Tablet) 9 mg PO BEDTIME [facility] Last Admin: 10/30/21 20:48 Dose: 9 mg Documented by: Multi-Ingred Cream/Lotion/Oil/Oint (Mineral Oil/Petrolatum,White 106 Gm Tube) 1 appl TOPICAL BID [facility]; Protocol Last Admin: 10/31/21 10:15 Dose: 1 appl Documented by: Multivitamins/Vitamin C (Multivitamin Tablet) 1 tab PO DAILY [facility] Last Admin: 10/31/21 10:18 Dose: 1 tab Documented by: Nicotine (Nicotine 14 Mg Patch.Td24) 14 mg TRANSDERMA DAILY [facility] Last Admin: 10/31/21 10:16 Dose: 14 mg Documented by: Nicotine Polacrilex (Nicotine Polacrilex 2 Mg Gum) 4 mg BUCCAL Q1H PRN PRN Reason: Nicotine Cravings Last Admin: 10/31/21 16:19 Dose: 4 mg Documented by: Patient Own Medication (Dry Eye Relief) 1 each EYE-BOTH QID [facility] Last Admin: 10/31/21 10:15 Dose: 1 each Documented by: Polyethylene Glycol (Polyethylene Glycol 3350 17 Gm Powd.Pack) 17 gm PO DAILY PRN PRN Reason: Constipation Last Admin: 10/31/21 10:33 Dose: 17 gm Documented by: Psyllium Hydrophilic Mucilloid (Psyllium Seed 3.4 Gm Powd.Pack) 3.4 gm PO DAILY [facility] Last Admin: 10/31/21 10:16 Dose: 3.4 gm Documented by: Quetiapine Fumarate (Quetiapine Fumarate 200 Mg Tablet) 200 mg PO Q6H PRN PRN Reason: anxiety/restlessness Last Admin: 09/21/21 02:38 Dose: 200 mg Documented by: Quetiapine Fumarate (Quetiapine Fumarate 100 Mg Tablet) 100 mg PO DAILY [facility] Last Admin: 10/31/21 10:19 Dose: 100 mg Documented by: Quetiapine Fumarate (Quetiapine Fumarate 300 Mg Tablet) 600 mg PO BEDTIME [facility] Last Admin: 10/30/21 20:48 Dose: 600 mg Documented by: Ropinirole HCl (Ropinirole Hcl 0.5 Mg Tablet) 0.5 mg PO 0800 [facility] Last Admin: 10/31/21 10:19 Dose: 0.5 mg Documented by: Ropinirole HCl (Ropinirole Hcl 1 Mg Tablet) 2 mg PO DAILY@1900 [facility] Last Admin: 10/30/21 19:22 Dose: 2 mg Documented by: Senna/Docusate Sodium (Sennosides/Docusate Sodium Tablet) 1 tab PO BID [facility] Last Admin: 10/31/21 10:18 Dose: 1 tab Documented by: Simethicone (Simethicone 80 Mg Tab.Chew) 80 mg PO QIDWMHS PRN PRN Reason: indigestion Sodium Chloride (Sodium Chloride 0.65 % Nasal 44 Ml Sprbtl) 1 spray NOSTRIL-B Q1H PRN PRN Reason: congestion Last Admin: 10/31/21 10:28 Dose: 1 spray Documented by: Trolamine Salicylate/Aloe Vera (Trolamine Salicylate 10%/Aloe Cream 35.4 Gm) 1 appl TOPICAL TID PRN PRN Reason: sciatica Last Admin: 09/03/21 05:27 Dose: 1 appl Documented by: Vitamin D (Cholecalciferol (Vitamin D3) 10 Mcg Tablet) 10 mcg PO DAILY [facility] Last Admin: 10/31/21 10:17 Dose: 10 mcg Documented by: Allergies Allergies Allergy/AdvReac Type Severity Reaction Status Date / Time aripiprazole [From Abilify] Allergy Unknown Involuntary Verified 08/19/21 07:20 Spasms chlorpromazine Allergy Unknown Nausea and Verified 08/19/21 07:20 [From Thorazine] Vomiting haloperidol [From Haldol] Allergy Unknown Involuntary Verified 08/19/21 07:20 Spasms olanzapine [From Zyprexa] Allergy Unknown Involuntary Verified 08/19/21 07:20 Spasms paliperidone [From Invega] Allergy Unknown Hallucinati Verified 08/19/21 07:20 ons risperidone Allergy Unknown Involuntary Verified 08/19/21 07:20 Spasms Assessment & Plan Assessment & Plan (1) Schizoaffective disorder, bipolar type: Status: Acute Code(s): F25.0 - Schizoaffective disorder, bipolar type (2) Lumbar radiculopathy: Status: Acute Code(s): M54.16 - Radiculopathy, lumbar region (3) Hip pain, left: Status: Acute Code(s): M25.552 - Pain in left hip Assessment and Plan: designer/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 Reason for contiued inpatient stay Substantial Risk for: other
[2021-10-31 18:00] VITALS: BP 126/74; PULSE 86; TEMP 36.9
[2021-10-31] MEDS: rOPINIRole HCL 1 MG TABLET 2 MG PO (20:37)
[2021-10-31] MEDS: QUEtiapine Fumarate 300 MG TABLET 600 MG PO (20:37)
[2021-10-31] MEDS: hydrOXYzine HCL 25 MG TABLET PO (20:37)
[2021-10-31] MEDS: Melatonin 3 MG TABLET 9 MG PO (20:39)
[2021-11-01 08:25] VITALS: BP 126/65; PULSE 69; TEMP 36.6
[2021-11-01] MEDS: Cholecalciferol (Vitamin D3) 10 MCG TABLET PO (09:27)
[2021-11-01] MEDS: Diclofenac Sodium Delayed Rel 50 MG TABLET.DR PO ×3 (09:27→19:50)
[2021-11-01] MEDS: Lithium Carbonate 300 MG TABLET PO ×2 (09:27→20:38)
[2021-11-01] MEDS: amLODIPine Besylate 2.5 MG TABLET PO (09:27)
[2021-11-01] MEDS: Multivitamin TABLET 1 TAB PO (09:27)
[2021-11-01] MEDS: Nicotine Polacrilex 2 MG GUM 4 MG BUCCAL ×3 (09:27→20:03)
[2021-11-01] MEDS: Sennosides/Docusate Sodium TABLET 1 TAB PO ×2 (09:28→20:40)
[2021-11-01] MEDS: DULoxetine HCl 30 MG CAPSULE.DR PO (09:28)
[2021-11-01] MEDS: Cyanocobalamin (Vitamin B-12) 100 MCG TABLET PO (09:28)
[2021-11-01] MEDS: Gabapentin 400 MG CAPSULE 800 MG PO ×3 (09:28→20:41)
[2021-11-01] MEDS: QUEtiapine Fumarate 100 MG TABLET PO (09:28)
[2021-11-01] MEDS: Nicotine 14 MG PATCH.TD24 TRANSDERMA (09:28)
[2021-11-01] MEDS: rOPINIRole HCL 0.5 MG TABLET PO (09:29)
[2021-11-01] MEDS: Sodium Chloride 0.65 % Nasal 44 ML SPRBTL 1 SPRAY NOSTRIL-B ×2 (09:36→15:22)
[2021-11-01] MEDS: Mineral Oil/Petrolatum,White 106 GM Tube 1 APPL TOPICAL (09:36)
[2021-11-01] MEDS: LORazepam 1 MG TABLET PO ×2 (09:43→15:23)
[2021-11-01 15:55] VITALS: BP 135/77; PULSE 89; TEMP 36.6
[2021-11-01] MEDS: polyethylene glycoL 3350 17 GM POWD.PACK PO (15:56)
--- NOTE | 2021-11-01 16:24 | P.PNPSI_ITS ---
Subjective Subjective Date of Service: 11/01/21 Reason For Visit: Bipolar, Schizoaffective Subjective Notes: Conditional Voluntary Healthcare Proxy: No Guardianship: No Medical Problems Affecting Mental Status: No Interim History: Blanca discussed feeling overwhelmed and sad regarding her placement and [facility] care transfer issues. She discussed her fears of these issues not being resolved and the resulting anhedonia amotivation and lack of self care. Medication Compliance: Yes Side effects from medications: No Attending Groups: No Review of Systems Acute medical concerns: No Medical Review of Systems: unchanged Review of Systems Psychiatric: Reports anxiety, Reports depression, Reports difficulty concentrating, Reports hopelessness and Reports anhedonia Mental Status Exam Mental Status Exam Patient Appearance: Disheveled, Unkempt and Malodorous Patient Orientation: Person, Place, Time and Situation Level of Consciousness: Alert Patient Behavior: Appropriate, Talkative, Cooperative and Good Eye Contact Mood Description: Depressed Affect Description: Flat Patient Cognition Impaired: No Ability to Follow Directions: Good Speech Pattern: Spontaneous Speech Memory Description: Intact Hallucinations: None Delusions: Paranoid Ideation Perceptual Disturbances: Depersonalization and Derealization Thought Process: Rumination Thought Content: positive for Circumstantial Depressive Symptoms: Increased Anxiety, Hopelessness, Unhappiness, Increased Fatigue and Loss of Energy Judgement: Good Diagnostics Vital Signs (24Hr): Vital Signs - 24 hr 10/31/21 18:00 11/01/21 08:25 Temperature 98.4 F 97.8 F Pulse Rate 86 69 Blood Pressure 126/74 126/65 BMI result Body Mass Index 32.8 Labs Results: 10/29/21 07:54 10/29/21 07:54 Imaging Radiology Impressions: ITS Impressions Abdomen Ultrasound 09/01/21 08:59 IMPRESSION: Slightly echogenic liver. Limited evaluation of the gallbladder as the patient has recently eaten. No gallstone seen. Limited visualization of the pancreas. Hip X-Ray 09/16/21 14:47 IMPRESSION: Moderate to severe left hip arthritis. Medications Medications Current Medications Acetaminophen (Acetaminophen 325 Mg Tablet) 975 mg PO Q6H PRN PRN Reason: Headache/Pain Mild Scale (1-3) Last Admin: 10/30/21 09:24 Dose: 975 mg Documented by: Al Hydroxide/Mg Hydroxide (Magnesium Hydrox/Alum Hydrox 30 Ml Oral.Susp) 30 ml PO Q6H PRN PRN Reason: Heartburn/Nausea Last Admin: 08/22/21 05:54 Dose: 30 ml Documented by: Amlodipine Besylate (Amlodipine Besylate 2.5 Mg Tablet) 2.5 mg PO DAILY [facility]; Protocol Last Admin: 11/01/21 09:27 Dose: 2.5 mg Documented by: Artificial Tears (Artificial Tears 15 Ml Drops) 2 drop EYE-BOTH Q4H PRN PRN Reason: Dry Eyes Last Admin: 10/24/21 08:47 Dose: 2 drop Documented by: Aspirin (Aspirin Enteric Coated 325 Mg Tablet.) 650 mg PO DAILY PRN PRN Reason: headache Last Admin: 09/06/21 12:18 Dose: 650 mg Documented by: Benzocaine (Benzocaine 20 % Oral Gel 9 Gm Tube) 1 appl MUCOUS MEM QID PRN; Protocol PRN Reason: Mouth Sore Pain Last Admin: 08/31/21 03:05 Dose: 1 appl Documented by: Calcium Carbonate (Calcium Carbonate 500 Mg Tablet) 500 mg PO DAILY [facility] Last Admin: 11/01/21 09:27 Dose: 500 mg Documented by: Calcium Carbonate (Calcium Carbonate 750 Mg Tab.Chew) 750 mg PO Q4H PRN PRN Reason: Heartburn Last Admin: 10/25/21 10:39 Dose: 750 mg Documented by: Calcium Carbonate (Calcium Carbonate 750 Mg Tab.Chew) 750 mg PO Q4H PRN PRN Reason: Dyspepsia Last Admin: 10/28/21 11:26 Dose: 750 mg Documented by: Clotrimazole (Clotrimazole 1 % Cream 15 Gm Tube) 1 appl TOPICAL BID [facility]; Protocol Last Admin: 11/01/21 09:38 Dose: Not Given Documented by: [place] Butter/Zinc Oxide ([place] Butter/Zinc Oxide Supp.Rect) 1 supp [place] BEDTIME PRN PRN Reason: hemorrhoid pain Last Admin: 09/13/21 21:15 Dose: 1 supp Documented by: Cyanocobalamin (Cyanocobalamin (Vitamin B-12) 100 Mcg Tablet) 100 mcg PO DAILY [facility] Last Admin: 11/01/21 09:28 Dose: 100 mcg Documented by: Diclofenac Sodium (Diclofenac Sodium Delayed Rel 50 Mg Tablet.) 50 mg PO TID [facility] Last Admin: 11/01/21 15:23 Dose: 50 mg Documented by: Diphenhydramine HCl (Diphenhydramine Hcl 25 Mg Tablet) 50 mg PO Q6H PRN PRN Reason: eps Last Admin: 09/22/21 23:48 Dose: 50 mg Documented by: Docusate Sodium (Docusate Sodium 100 Mg Capsule) 100 mg PO BID PRN PRN Reason: Constipation Duloxetine HCl (Duloxetine Hcl 30 Mg Capsule.Dr) 30 mg PO DAILY [facility] Last Admin: 11/01/21 09:28 Dose: 30 mg Documented by: Gabapentin (Gabapentin 400 Mg Capsule) 800 mg PO TID [facility] Last Admin: 11/01/21 15:22 Dose: 800 mg Documented by: Gabapentin (Gabapentin 100 Mg Capsule) 100 mg PO TID PRN PRN Reason: neuropathic pain Last Admin: 09/26/21 17:14 Dose: 100 mg Documented by: Hydroxyzine HCl (Hydroxyzine Hcl 25 Mg Tablet) 25 mg PO BEDTIME PRN PRN Reason: Anxiety Last Admin: 09/22/21 23:48 Dose: 25 mg Documented by: Hydroxyzine HCl (Hydroxyzine Hcl 25 Mg Tablet) 25 mg PO BEDTIME [facility] Last Admin: 10/31/21 20:37 Dose: 25 mg Documented by: Lidocaine (Lidocaine 4 % Patch Adh..Patch) 1 patch TRANSDERMA DAILY [facility]; Protocol Last Admin: 11/01/21 09:38 Dose: Not Given Documented by: [place] Carbonate ([place] Carbonate 300 Mg Tablet) 300 mg PO BID [facility] Last Admin: 11/01/21 09:27 Dose: 300 mg Documented by: Lorazepam (Lorazepam 1 Mg Tablet) 1 mg PO TID PRN PRN Reason: anxiety/restlessness Last Admin: 11/01/21 15:23 Dose: 1 mg Documented by: Magnesium Citrate (Magnesium Citrate 300 Ml Solution) 300 ml PO DAILY PRN PRN Reason: Constipation Last Admin: 10/28/21 15:26 Dose: 300 ml Documented by: Magnesium Hydroxide (Milk Of Magnesia 30 Ml Oral.Susp) 30 ml PO DAILY PRN PRN Reason: Constipation Last Admin: 08/31/21 20:05 Dose: 30 ml Documented by: Melatonin (Melatonin 3 Mg Tablet) 9 mg PO BEDTIME [facility] Last Admin: 10/31/21 20:39 Dose: 9 mg Documented by: Multi-Ingred Cream/Lotion/Oil/Oint (Mineral Oil/Petrolatum,White 106 Gm Tube) 1 appl TOPICAL BID [facility]; Protocol Last Admin: 11/01/21 09:36 Dose: 1 appl Documented by: Multivitamins/Vitamin C (Multivitamin Tablet) 1 tab PO DAILY [facility] Last Admin: 11/01/21 09:27 Dose: 1 tab Documented by: Nicotine (Nicotine 14 Mg Patch.Td24) 14 mg TRANSDERMA DAILY [facility] Last Admin: 11/01/21 09:28 Dose: 14 mg Documented by: Nicotine Polacrilex (Nicotine Polacrilex 2 Mg Gum) 4 mg BUCCAL Q1H PRN PRN Reason: Nicotine Cravings Last Admin: 11/01/21 15:23 Dose: 4 mg Documented by: Patient Own Medication (Dry Eye Relief) 1 each EYE-BOTH QID [facility] Last Admin: 11/01/21 15:22 Dose: 1 each Documented by: Polyethylene Glycol (Polyethylene Glycol 3350 17 Gm Powd.Pack) 17 gm PO DAILY P RN PRN Reason: Constipation Last Admin: 11/01/21 15:56 Dose: 17 gm Documented by: Psyllium Hydrophilic Mucilloid (Psyllium Seed 3.4 Gm Powd.Pack) 3.4 gm PO DAILY [facility] Last Admin: 11/01/21 09:29 Dose: 3.4 gm Documented by: Quetiapine Fumarate (Quetiapine Fumarate 200 Mg Tablet) 200 mg PO Q6H PRN PRN Reason: anxiety/restlessness Last Admin: 09/21/21 02:38 Dose: 200 mg Documented by: Quetiapine Fumarate (Quetiapine Fumarate 100 Mg Tablet) 100 mg PO DAILY [facility] Last Admin: 11/01/21 09:28 Dose: 100 mg Documented by: Quetiapine Fumarate (Quetiapine Fumarate 300 Mg Tablet) 600 mg PO BEDTIME [facility] Last Admin: 10/31/21 20:37 Dose: 600 mg Documented by: Ropinirole HCl (Ropinirole Hcl 0.5 Mg Tablet) 0.5 mg PO 0800 [facility] Last Admin: 11/01/21 09:29 Dose: 0.5 mg Documented by: Ropinirole HCl (Ropinirole Hcl 1 Mg Tablet) 2 mg PO DAILY@1900 [facility] Last Admin: 10/31/21 20:37 Dose: 2 mg Documented by: Senna/Docusate Sodium (Sennosides/Docusate Sodium Tablet) 1 tab PO BID [facility] Last Admin: 11/01/21 09:28 Dose: 1 tab Documented by: Simethicone (Simethicone 80 Mg Tab.Chew) 80 mg PO QIDWMHS PRN PRN Reason: indigestion Sodium Chloride (Sodium Chloride 0.65 % Nasal 44 Ml Sprbtl) 1 spray NOSTRIL-B Q1H PRN PRN Reason: congestion Last Admin: 11/01/21 15:22 Dose: 1 spray Documented by: Trolamine Salicylate/Aloe Vera (Trolamine Salicylate 10%/Aloe Cream 35.4 Gm) 1 appl TOPICAL TID PRN PRN Reason: sciatica Last Admin: 09/03/21 05:27 Dose: 1 appl Documented by: Vitamin D (Cholecalciferol (Vitamin D3) 10 Mcg Tablet) 10 mcg PO DAILY [facility] Last Admin: 11/01/21 09:27 Dose: 10 mcg Documented by: Allergies Allergies Allergy/AdvReac Type Severity Reaction Status Date / Time aripiprazole [From Abilify] Allergy Unknown Involuntary Verified 08/19/21 07:20 Spasms chlorpromazine Allergy Unknown Nausea and Verified 08/19/21 07:20 [From Thorazine] Vomiting haloperidol [From Haldol] Allergy Unknown Involuntary Verified 08/19/21 07:20 Spasms olanzapine [From Zyprexa] Allergy Unknown Involuntary Verified 08/19/21 07:20 Spasms paliperidone [From Invega] Allergy Unknown Hallucinati Verified 08/19/21 07:20 ons risperidone Allergy Unknown Involuntary Verified 08/19/21 07:20 Spasms Assessment & Plan Assessment & Plan (1) Schizoaffective disorder, bipolar type: Status: Acute Code(s): F25.0 - Schizoaffective disorder, bipolar type (2) Lumbar radiculopathy: Status: Acute Code(s): M54.16 - Radiculopathy, lumbar region (3) Hip pain, left: Status: Acute Code(s): M25.552 - Pain in left hip Plan 11/01/21: Encourage pt to keep to self care routine Continue current regime. I spent minutes with the patient and/or on the patient floor today, greater than?50% of which was spent counseling/coordinating care. Patient educated on: therapeutic strategies Informed Consent: understands Reason for contiued inpatient stay Substantial Risk for: inability to function and rapid decompensation
[2021-11-01] MEDS: rOPINIRole HCL 1 MG TABLET 2 MG PO (19:50)
[2021-11-01] MEDS: QUEtiapine Fumarate 300 MG TABLET 600 MG PO (20:39)
[2021-11-01] MEDS: hydrOXYzine HCL 25 MG TABLET PO (20:40)
[2021-11-01] MEDS: Melatonin 3 MG TABLET 9 MG PO (20:40)
[2021-11-01] MEDS: traZODone HCL 50 MG TABLET PO (20:44)
[2021-11-02] MEDS: LORazepam 1 MG TABLET PO ×3 (00:39→21:02)
[2021-11-02] MEDS: Calcium Carbonate 750 MG TAB.CHEW PO ×3 (00:41→18:00)
[2021-11-02 06:00] VITALS: BP 128/74; PULSE 94; RESP 14; O2SAT 97
[2021-11-02] MEDS: Nicotine Polacrilex 2 MG GUM 4 MG BUCCAL ×4 (09:25→21:02)
[2021-11-02] MEDS: Gabapentin 400 MG CAPSULE 800 MG PO ×3 (09:25→20:50)
[2021-11-02] MEDS: Cholecalciferol (Vitamin D3) 10 MCG TABLET PO (09:25)
[2021-11-02] MEDS: amLODIPine Besylate 2.5 MG TABLET PO (09:25)
[2021-11-02] MEDS: Diclofenac Sodium Delayed Rel 50 MG TABLET.DR PO ×3 (09:25→21:28)
[2021-11-02] MEDS: QUEtiapine Fumarate 100 MG TABLET PO (09:25)
[2021-11-02] MEDS: Lithium Carbonate 300 MG TABLET PO ×2 (09:25→20:50)
[2021-11-02] MEDS: Cyanocobalamin (Vitamin B-12) 100 MCG TABLET PO (09:25)
[2021-11-02] MEDS: Multivitamin TABLET 1 TAB PO (09:26)
[2021-11-02] MEDS: rOPINIRole HCL 0.5 MG TABLET PO (09:26)
[2021-11-02] MEDS: Sennosides/Docusate Sodium TABLET 1 TAB PO ×2 (09:26→20:51)
[2021-11-02] MEDS: Nicotine 14 MG PATCH.TD24 TRANSDERMA (09:26)
[2021-11-02] MEDS: DULoxetine HCl 30 MG CAPSULE.DR PO (09:26)
--- NOTE | 2021-11-02 16:08 | P.PNPSI_ITS ---
Subjective Subjective Date of Service: 11/02/21 Reason For Visit: Bipolar, Schizoaffective Subjective Notes: Conditional Voluntary Healthcare Proxy: No Guardianship: No Medical Problems Affecting Mental Status: No Interim History: Participating in activity in her room-reading, listening to music, however isolative from milieu. Continues to be inattentive to daily self-care, daily care of her room. Encouraged to increase participation. [facility] does not care, why should I.? Discussion. Medication Compliance: Yes Side effects from medications: No Attending Groups: No Review of Systems Acute medical concerns: No Medical Review of Systems: unchanged Review of Systems Psychiatric: Reports anxiety, Reports depression, Reports difficulty concentrating, Reports hopelessness and Reports anhedonia Mental Status Exam Mental Status Exam Patient Appearance: Disheveled, Unkempt and Malodorous Patient Orientation: Person, Place, Time and Situation Level of Consciousness: Alert Patient Behavior: Appropriate, Talkative, Cooperative and Good Eye Contact Mood Description: Depressed Affect Description: Flat Patient Cognition Impaired: No Ability to Follow Directions: Good Speech Pattern: Spontaneous Speech Memory Description: Intact Hallucinations: None Delusions: Paranoid Ideation Perceptual Disturbances: Depersonalization and Derealization Thought Process: Rumination Thought Content: positive for Circumstantial Depressive Symptoms: Increased Anxiety, Hopelessness, Unhappiness, Increased Fatigue and Loss of Energy Judgement: Good Diagnostics Vital Signs (24Hr): Vital Signs - 24 hr 11/02/21 06:00 Pulse Rate 94 Respiratory Rate 14 Blood Pressure 128/74 Pulse Oximetry 97 BMI result Body Mass Index 32.8 Labs Results: 10/29/21 07:54 10/29/21 07:54 Imaging Radiology Impressions: ITS Impressions Abdomen Ultrasound 09/01/21 08:59 IMPRESSION: Slightly echogenic liver. Limited evaluation of the gallbladder as the patient has recently eaten. No gallstone seen. Limited visualization of the pancreas. Hip X-Ray 09/16/21 14:47 IMPRESSION: Moderate to severe left hip arthritis. Medications Medications Current Medications Acetaminophen (Acetaminophen 325 Mg Tablet) 975 mg PO Q6H PRN PRN Reason: Headache/Pain Mild Scale (1-3) Last Admin: 10/30/21 09:24 Dose: 975 mg Documented by: Al Hydroxide/Mg Hydroxide (Magnesium Hydrox/Alum Hydrox 30 Ml Oral.Susp) 30 ml PO Q6H PRN PRN Reason: Heartburn/Nausea Last Admin: 08/22/21 05:54 Dose: 30 ml Documented by: Amlodipine Besylate (Amlodipine Besylate 2.5 Mg Tablet) 2.5 mg PO DAILY [facility]; Protocol Last Admin: 11/02/21 09:25 Dose: 2.5 mg Documented by: Artificial Tears (Artificial Tears 15 Ml Drops) 2 drop EYE-BOTH Q4H PRN PRN Reason: Dry Eyes Last Admin: 10/24/21 08:47 Dose: 2 drop Documented by: Aspirin (Aspirin Enteric Coated 325 Mg Tablet.) 650 mg PO DAILY PRN PRN Reason: headache Last Admin: 09/06/21 12:18 Dose: 650 mg Documented by: Benzocaine (Benzocaine 20 % Oral Gel 9 Gm Tube) 1 appl MUCOUS MEM QID PRN; Protocol PRN Reason: Mouth Sore Pain Last Admin: 08/31/21 03:05 Dose: 1 appl Documented by: Calcium Carbonate (Calcium Carbonate 500 Mg Tablet) 500 mg PO DAILY [facility] Last Admin: 11/02/21 09:25 Dose: 500 mg Documented by: Calcium Carbonate (Calcium Carbonate 750 Mg Tab.Chew) 750 mg PO Q4H PRN PRN Reason: Heartburn Last Admin: 11/02/21 10:51 Dose: 750 mg Documented by: Calcium Carbonate (Calcium Carbonate 750 Mg Tab.Chew) 750 mg PO Q4H PRN PRN Reason: Dyspepsia Last Admin: 10/28/21 11:26 Dose: 750 mg Documented by: Clotrimazole (Clotrimazole 1 % Cream 15 Gm Tube) 1 appl TOPICAL BID YAYA; Protocol Last Admin: 11/02/21 09:34 Dose: Not Given Documented by: [place] Butter/Zinc Oxide ([place] Butter/Zinc Oxide Supp.Rect) 1 supp [place] BEDTIME PRN PRN Reason: hemorrhoid pain Last Admin: 09/13/21 21:15 Dose: 1 supp Documented by: Cyanocobalamin (Cyanocobalamin (Vitamin B-12) 100 Mcg Tablet) 100 mcg PO DAILY [facility] Last Admin: 11/02/21 09:25 Dose: 100 mcg Documented by: Diclofenac Sodium (Diclofenac Sodium Delayed Rel 50 Mg Tablet.) 50 mg PO TID [facility] Last Admin: 11/02/21 15:29 Dose: 50 mg Documented by: Diphenhydramine HCl (Diphenhydramine Hcl 25 Mg Tablet) 50 mg PO Q6H PRN PRN Reason: eps Last Admin: 09/22/21 23:48 Dose: 50 mg Documented by: Docusate Sodium (Docusate Sodium 100 Mg Capsule) 100 mg PO BID PRN PRN Reason: Constipation Duloxetine HCl (Duloxetine Hcl 30 Mg Capsule.Dr) 30 mg PO DAILY [facility] Last Admin: 11/02/21 09:26 Dose: 30 mg Documented by: Gabapentin (Gabapentin 400 Mg Capsule) 800 mg PO TID YAYA Last Admin: 11/02/21 15:29 Dose: 800 mg Documented by: Gabapentin (Gabapentin 100 Mg Capsule) 100 mg PO TID PRN PRN Reason: neuropathic pain Last Admin: 09/26/21 17:14 Dose: 100 mg Documented by: Hydroxyzine HCl (Hydroxyzine Hcl 25 Mg Tablet) 25 mg PO BEDTIME PRN PRN Reason: Anxiety Last Admin: 09/22/21 23:48 Dose: 25 mg Documented by: Hydroxyzine HCl (Hydroxyzine Hcl 25 Mg Tablet) 25 mg PO BEDTIME YAYA Last Admin: 11/01/21 20:40 Dose: 25 mg Documented by: Lidocaine (Lidocaine 4 % Patch Adh..Patch) 1 patch TRANSDERMA DAILY [facility]; Protocol Last Admin: 11/02/21 09:35 Dose: Not Given Documented by: [place] Carbonate ([place] Carbonate 300 Mg Tablet) 300 mg PO BID [facility] Last Admin: 11/02/21 09:25 Dose: 300 mg Documented by: Lorazepam (Lorazepam 1 Mg Tablet) 1 mg PO BID PRN PRN Reason: Anxiety Last Admin: 11/02/21 09:32 Dose: 1 mg Documented by: Magnesium Citrate (Magnesium Citrate 300 Ml Solution) 300 ml PO DAILY PRN PRN Reason: Constipation Last Admin: 10/28/21 15:26 Dose: 300 ml Documented by: Magnesium Hydroxide (Milk Of Magnesia 30 Ml Oral.Susp) 30 ml PO DAILY PRN PRN Reason: Constipation Last Admin: 08/31/21 20:05 Dose: 30 ml Documented by: Melatonin (Melatonin 3 Mg Tablet) 9 mg PO BEDTIME YAYA Last Admin: 11/01/21 20:40 Dose: 9 mg Documented by: Multi-Ingred Cream/Lotion/Oil/Oint (Mineral Oil/Petrolatum,White 106 Gm Tube) 1 appl TOPICAL BID [facility]; Protocol Last Admin: 11/02/21 09:35 Dose: Not Given Documented by: Multivitamins/Vitamin C (Multivitamin Tablet) 1 tab PO DAILY [facility] Last Admin: 11/02/21 09:26 Dose: 1 tab Documented by: Nicotine (Nicotine 14 Mg Patch.Td24) 14 mg TRANSDERMA DAILY [facility] Last Admin: 11/02/21 09:26 Dose: 14 mg Documented by: Nicotine Polacrilex (Nicotine Polacrilex 2 Mg Gum) 4 mg BUCCAL Q1H PRN PRN Reason: Nicotine Cravings Last Admin: 11/02/21 15:29 Dose: 4 mg Documented by: Patient Own Medication (Dry Eye Relief) 1 each EYE-BOTH QID [facility] Last Admin: 11/02/21 12:56 Dose: 1 each Documented by: Polyethylene Glycol (Polyethylene Glycol 3350 17 Gm Powd.Pack) 17 gm PO DAILY PRN PRN Reason: Constipation Last Admin: 11/01/21 15:56 Dose: 17 gm Documented by: Psyllium Hydrophilic Mucilloid (Psyllium Seed 3.4 Gm Powd.Pack) 3.4 gm PO DAILY [facility] Last Admin: 11/02/21 09:26 Dose: 3.4 gm Documented by: Quetiapine Fumarate (Quetiapine Fumarate 200 Mg Tablet) 200 mg PO Q6H PRN PRN Reason: anxiety/restlessness Last Admin: 09/21/21 02:38 Dose: 200 mg Documented by: Quetiapine Fumarate (Quetiapine Fumarate 100 Mg Tablet) 100 mg PO DAILY [facility] Last Admin: 11/02/21 09:25 Dose: 100 mg Documented by: Quetiapine Fumarate (Quetiapine Fumarate 300 Mg Tablet) 600 mg PO BEDTIME [facility] Last Admin: 11/01/21 20:39 Dose: 600 mg Documented by: Ropinirole HCl (Ropinirole Hcl 0.5 Mg Tablet) 0.5 mg PO 0800 [facility] Last Admin: 11/02/21 09:26 Dose: 0.5 mg Documented by: Ropinirole HCl (Ropinirole Hcl 1 Mg Tablet) 2 mg PO DAILY@1900 [facility] Last Admin: 11/01/21 19:50 Dose: 2 mg Documented by: Senna/Docusate Sodium (Sennosides/Docusate Sodium Tablet) 1 tab PO BID [facility] Last Admin: 11/02/21 09:26 Dose: 1 tab Documented by: Simethicone (Simethicone 80 Mg Tab.Chew) 80 mg PO QIDWMHS PRN PRN Reason: indigestion Sodium Chloride (Sodium Chloride 0.65 % Nasal 44 Ml Sprbtl) 1 spray NOSTRIL-B Q1H PRN PRN Reason: congestion Last Admin: 11/01/21 15:22 Dose: 1 spray Documented by: Trazodone HCl (Trazodone Hcl 50 Mg Tablet) 50 mg PO BEDTIME PRN PRN Reason: insomnia Last Admin: 11/01/21 20:44 Dose: 50 mg Documented by: Trolamine Salicylate/Aloe Vera (Trolamine Salicylate 10%/Aloe Cream 35.4 Gm) 1 appl TOPICAL TID PRN PRN Reason: sciatica Last Admin: 09/03/21 05:27 Dose: 1 appl Documented by: Vitamin D (Cholecalciferol (Vitamin D3) 10 Mcg Tablet) 10 mcg PO DAILY YAYA Last Admin: 11/02/21 09:25 Dose: 10 mcg Documented by: Allergies Allergies Allergy/AdvReac Type Severity Reaction Status Date / Time aripiprazole [From Abilify] Allergy Unknown Involuntary Verified 08/19/21 07:20 Spasms chlorpromazine Allergy Unknown Nausea and Verified 08/19/21 07:20 [From Thorazine] Vomiting haloperidol [From Haldol] Allergy Unknown Involuntary Verified 08/19/21 07:20 Spasms olanzapine [From Zyprexa] Allergy Unknown Involuntary Verified 08/19/21 07:20 Spasms paliperidone [From Invega] Allergy Unknown Hallucinati Verified 08/19/21 07:20 ons risperidone Allergy Unknown Involuntary Verified 08/19/21 07:20 Spasms Assessment & Plan Assessment & Plan (1) Schizoaffective disorder, bipolar type: Status: Acute Code(s): F25.0 - Schizoaffective disorder, bipolar type (2) Lumbar radiculopathy: Status: Acute Code(s): M54.16 - Radiculopathy, lumbar region (3) Hip pain, left: Status: Acute Code(s): M25.552 - Pain in left hip Plan 11/02/21: Continue current regime Continue to encourage self-care, increase in participation in milieu I spent minutes with the patient and/or on the patient floor today, greater than?50% of which was spent counseling/coordinating care. Patient educated on: therapeutic strategies Informed Consent: understands Reason for contiued inpatient stay Substantial Risk for: inability to function and rapid decompensation
[2021-11-02] MEDS: rOPINIRole HCL 1 MG TABLET 2 MG PO (20:50)
[2021-11-02] MEDS: QUEtiapine Fumarate 300 MG TABLET 600 MG PO (20:50)
[2021-11-02] MEDS: hydrOXYzine HCL 25 MG TABLET PO (20:50)
[2021-11-02] MEDS: polyethylene glycoL 3350 17 GM POWD.PACK PO (20:51)
[2021-11-02] MEDS: Melatonin 3 MG TABLET 9 MG PO (20:51)
[2021-11-02 21:15] VITALS: BP 127/82; PULSE 84; TEMP 36.8; O2SAT 94
[2021-11-03 06:00] VITALS: BP 130/84; PULSE 86; RESP 14
[2021-11-03] MEDS: Nicotine Polacrilex 2 MG GUM 4 MG BUCCAL ×3 (09:48→21:34)
[2021-11-03] MEDS: Cholecalciferol (Vitamin D3) 10 MCG TABLET PO (09:48)
[2021-11-03] MEDS: Sennosides/Docusate Sodium TABLET 1 TAB PO ×2 (09:48→21:31)
[2021-11-03] MEDS: Nicotine 14 MG PATCH.TD24 TRANSDERMA (09:48)
[2021-11-03] MEDS: Gabapentin 400 MG CAPSULE 800 MG PO ×3 (09:49→21:31)
[2021-11-03] MEDS: QUEtiapine Fumarate 100 MG TABLET PO (09:49)
[2021-11-03] MEDS: rOPINIRole HCL 0.5 MG TABLET PO (09:49)
[2021-11-03] MEDS: Diclofenac Sodium Delayed Rel 50 MG TABLET.DR PO ×3 (09:49→21:31)
[2021-11-03] MEDS: Cyanocobalamin (Vitamin B-12) 100 MCG TABLET PO (09:49)
[2021-11-03] MEDS: Multivitamin TABLET 1 TAB PO (09:49)
[2021-11-03] MEDS: Lithium Carbonate 300 MG TABLET PO ×2 (09:49→21:31)
[2021-11-03] MEDS: DULoxetine HCl 30 MG CAPSULE.DR PO (09:49)
[2021-11-03] MEDS: amLODIPine Besylate 2.5 MG TABLET PO (09:49)
[2021-11-03] MEDS: polyethylene glycoL 3350 17 GM POWD.PACK PO (14:26)
--- NOTE | 2021-11-03 17:00 | HO.PSYCHPN ---
Subjective Subjective Date of Service: 11/03/21 Reason For Visit: Bipolar, Schizoaffective Subjective Notes: Conditional Voluntary Healthcare Proxy: No Guardianship: No Medical Problems Affecting Mental Status: No Interim History: Blanca reports an increase in relief. She was informed by team that her care can be transferred to [facility] from [place]. Upon hearing this news, discussed her housing possibilities-she is now struggling to obtain a temporary placement where smoking is allowed. She appeared to respond to this news with an increase in energy and motivation-she showered and was working on her belongings this afternoon, stating to tw, I have hope. Medication Compliance: Yes Side effects from medications: No Attending Groups: No Review of Systems Acute medical concerns: No Medical Review of Systems: unchanged Review of Systems Psychiatric: Reports anxiety, Reports depression, Reports difficulty concentrating, Reports hopelessness and Reports anhedonia Mental Status Exam Mental Status Exam Patient Appearance: Disheveled, Unkempt and Malodorous Patient Orientation: Person, Place, Time and Situation Level of Consciousness: Alert Patient Behavior: Appropriate, Talkative, Cooperative and Good Eye Contact Mood Description: Depressed Affect Description: Flat Patient Cognition Impaired: No Ability to Follow Directions: Good Speech Pattern: Spontaneous Speech Memory Description: Intact Hallucinations: None Delusions: Paranoid Ideation Perceptual Disturbances: Depersonalization and Derealization Thought Process: Rumination Thought Content: positive for Circumstantial Depressive Symptoms: Increased Anxiety, Hopelessness, Unhappiness, Increased Fatigue and Loss of Energy Judgement: Good Diagnostics Vital Signs (24Hr): Vital Signs - 24 hr 11/02/21 21:15 11/03/21 06:00 Temperature 98.3 F Pulse Rate 84 86 Respiratory Rate 14 Blood Pressure 127/82 130/84 Pulse Oximetry 94 BMI result Body Mass Index 32.8 Labs Results: 10/29/21 07:54 10/29/21 07:54 Imaging Radiology Impressions: ITS Impressions Abdomen Ultrasound 09/01/21 08:59 IMPRESSION: Slightly echogenic liver. Limited evaluation of the gallbladder as the patient has recently eaten. No gallstone seen. Limited visualization of the pancreas. Hip X-Ray 09/16/21 14:47 IMPRESSION: Moderate to severe left hip arthritis. Medications Medications Current Medications Acetaminophen (Acetaminophen 325 Mg Tablet) 975 mg PO Q6H PRN PRN Reason: Headache/Pain Mild Scale (1-3) Last Admin: 10/30/21 09:24 Dose: 975 mg Documented by: Al Hydroxide/Mg Hydroxide (Magnesium Hydrox/Alum Hydrox 30 Ml Oral.Susp) 30 ml PO Q6H PRN PRN Reason: Heartburn/Nausea Last Admin: 08/22/21 05:54 Dose: 30 ml Documented by: Amlodipine Besylate (Amlodipine Besylate 2.5 Mg Tablet) 2.5 mg PO DAILY [facility]; Protocol Last Admin: 11/03/21 09:49 Dose: 2.5 mg Documented by: Artificial Tears (Artificial Tears 15 Ml Drops) 2 drop EYE-BOTH Q4H PRN PRN Reason: Dry Eyes Last Admin: 10/24/21 08:47 Dose: 2 drop Documented by: Aspirin (Aspirin Enteric Coated 325 Mg Tablet.) 650 mg PO DAILY PRN PRN Reason: headache Last Admin: 09/06/21 12:18 Dose: 650 mg Documented by: Benzocaine (Benzocaine 20 % Oral Gel 9 Gm Tube) 1 appl MUCOUS MEM QID PRN; Protocol PRN Reason: Mouth Sore Pain Last Admin: 08/31/21 03:05 Dose: 1 appl Documented by: Calcium Carbonate (Calcium Carbonate 500 Mg Tablet) 500 mg PO DAILY [facility] Last Admin: 11/03/21 09:49 Dose: 500 mg Documented by: Calcium Carbonate (Calcium Carbonate 750 Mg Tab.Chew) 750 mg PO Q4H PRN PRN Reason: Heartburn Last Admin: 11/02/21 18:00 Dose: 750 mg Documented by: Clotrimazole (Clotrimazole 1 % Cream 15 Gm Tube) 1 appl TOPICAL BID [facility]AYA; Protocol Last Admin: 11/03/21 09:53 Dose: Not Given Documented by: [place] Butter/Zinc Oxide ([place] Butter/Zinc Oxide Supp.Rect) 1 supp [place] BEDTIME PRN PRN Reason: hemorrhoid pain Last Admin: 09/13/21 21:15 Dose: 1 supp Documented by: Cyanocobalamin (Cyanocobalamin (Vitamin B-12) 100 Mcg Tablet) 100 mcg PO DAILY [facility] Last Admin: 11/03/21 09:49 Dose: 100 mcg Documented by: Diclofenac Sodium (Diclofenac Sodium Delayed Rel 50 Mg Tablet.) 50 mg PO TID [facility] Last Admin: 11/03/21 14:18 Dose: 50 mg Documented by: Diphenhydramine HCl (Diphenhydramine Hcl 25 Mg Tablet) 50 mg PO Q6H PRN PRN Reason: eps Last Admin: 09/22/21 23:48 Dose: 50 mg Documented by: Docusate Sodium (Docusate Sodium 100 Mg Capsule) 100 mg PO BID PRN PRN Reason: Constipation Duloxetine HCl (Duloxetine Hcl 30 Mg Capsule.) 30 mg PO DAILY [facility] Last Admin: 11/03/21 09:49 Dose: 30 mg Documented by: Gabapentin (Gabapentin 400 Mg Capsule) 800 mg PO TID YAYA Last Admin: 11/03/21 14:18 Dose: 800 mg Documented by: Gabapentin (Gabapentin 100 Mg Capsule) 100 mg PO TID PRN PRN Reason: neuropathic pain Last Admin: 09/26/21 17:14 Dose: 100 mg Documented by: Hydroxyzine HCl (Hydroxyzine Hcl 25 Mg Tablet) 25 mg PO BEDTIME PRN PRN Reason: Anxiety Last Admin: 09/22/21 23:48 Dose: 25 mg Documented by: Hydroxyzine HCl (Hydroxyzine Hcl 25 Mg Tablet) 25 mg PO BEDTIME YAYA Last Admin: 11/02/21 20:50 Dose: 25 mg Documented by: Lidocaine (Lidocaine 4 % Patch Adh..Patch) 1 patch TRANSDERMA DAILY [facility]; Protocol Last Admin: 11/03/21 09:53 Dose: Not Given Documented by: [place] Carbonate ([place] Carbonate 300 Mg Tablet) 300 mg PO BID [facility] Last Admin: 11/03/21 09:49 Dose: 300 mg Documented by: Lorazepam (Lorazepam 1 Mg Tablet) 1 mg PO BID PRN PRN Reason: Anxiety Last Admin: 11/02/21 21:02 Dose: 1 mg Documented by: Magnesium Citrate (Magnesium Citrate 300 Ml Solution) 300 ml PO DAILY PRN PRN Reason: Constipation Last Admin: 10/28/21 15:26 Dose: 300 ml Documented by: Magnesium Hydroxide (Milk Of Magnesia 30 Ml Oral.Susp) 30 ml PO DAILY PRN PRN Reason: Constipation Last Admin: 08/31/21 20:05 Dose: 30 ml Documented by: Melatonin (Melatonin 3 Mg Tablet) 9 mg PO BEDTIME YAYA Last Admin: 11/02/21 20:51 Dose: 9 mg Documented by: Multi-Ingred Cream/Lotion/Oil/Oint (Mineral Oil/Petrolatum,White 106 Gm Tube) 1 appl TOPICAL BID YAYA; Protocol Last Admin: 11/03/21 09:53 Dose: Not Given Documented by: Multivitamins/Vitamin C (Multivitamin Tablet) 1 tab PO DAILY [facility] Last Admin: 11/03/21 09:49 Dose: 1 tab Documented by: Nicotine (Nicotine 14 Mg Patch.Td24) 14 mg TRANSDERMA DAILY [facility] Last Admin: 11/03/21 09:48 Dose: 14 mg Documented by: Nicotine Polacrilex (Nicotine Polacrilex 2 Mg Gum) 4 mg BUCCAL Q1H PRN PRN Reason: Nicotine Cravings Last Admin: 11/03/21 14:19 Dose: 4 mg Documented by: Patient Own Medication (Dry Eye Relief) 1 each EYE-BOTH QID [facility] Last Admin: 11/03/21 12:41 Dose: 1 each Documented by: Polyethylene Glycol (Polyethylene Glycol 3350 17 Gm Powd.Pack) 17 gm PO DAILY PRN PRN Reason: Constipation Last Admin: 11/03/21 14:26 Dose: 17 gm Documented by: Psyllium Hydrophilic Mucilloid (Psyllium Seed 3.4 Gm Powd.Pack) 3.4 gm PO DAILY [facility] Last Admin: 11/03/21 09:48 Dose: 3.4 gm Documented by: Quetiapine Fumarate (Quetiapine Fumarate 200 Mg Tablet) 200 mg PO Q6H PRN PRN Reason: anxiety/restlessness Last Admin: 09/21/21 02:38 Dose: 200 mg Documented by: Quetiapine Fumarate (Quetiapine Fumarate 100 Mg Tablet) 100 mg PO DAILY [facility] Last Admin: 11/03/21 09:49 Dose: 100 mg Documented by: Quetiapine Fumarate (Quetiapine Fumarate 300 Mg Tablet) 600 mg PO BEDTIME [facility] Last Admin: 11/02/21 20:50 Dose: 600 mg Documented by: Ropinirole HCl (Ropinirole Hcl 0.5 Mg Tablet) 0.5 mg PO 0800 [facility] Last Admin: 11/03/21 09:49 Dose: 0.5 mg Documented by: Ropinirole HCl (Ropinirole Hcl 1 Mg Tablet) 2 mg PO DAILY@1900 [facility] Last Admin: 11/02/21 20:50 Dose: 2 mg Documented by: Senna/Docusate Sodium (Sennosides/Docusate Sodium Tablet) 1 tab PO BID [facility] Last Admin: 11/03/21 09:48 Dose: 1 tab Documented by: Simethicone (Simethicone 80 Mg Tab.Chew) 80 mg PO QIDWMHS PRN PRN Reason: indigestion Sodium Chloride (Sodium Chloride 0.65 % Nasal 44 Ml Sprbtl) 1 spray NOSTRIL-B Q1H PRN PRN Reason: congestion Last Admin: 11/01/21 15:22 Dose: 1 spray Documented by: Trazodone HCl (Trazodone Hcl 50 Mg Tablet) 50 mg PO BEDTIME PRN PRN Reason: insomnia Last Admin: 11/01/21 20:44 Dose: 50 mg Documented by: Trolamine Salicylate/Aloe Vera (Trolamine Salicylate 10%/Aloe Cream 35.4 Gm) 1 appl TOPICAL TID PRN PRN Reason: sciatica Last Admin: 09/03/21 05:27 Dose: 1 appl Documented by: Vitamin D (Cholecalciferol (Vitamin D3) 10 Mcg Tablet) 10 mcg PO DAILY [facility] Last Admin: 11/03/21 09:48 Dose: 10 mcg Documented by: Allergies Allergies Allergy/AdvReac Type Severity Reaction Status Date / Time aripiprazole [From Abilify] Allergy Unknown Involuntary Verified 08/19/21 07:20 Spasms chlorpromazine Allergy Unknown Nausea and Verified 08/19/21 07:20 [From Thorazine] Vomiting haloperidol [From Haldol] Allergy Unknown Involuntary Verified 08/19/21 07:20 Spasms olanzapine [From Zyprexa] Allergy Unknown Involuntary Verified 08/19/21 07:20 Spasms paliperidone [From Invega] Allergy Unknown Hallucinati Verified 08/19/21 07:20 ons risperidone Allergy Unknown Involuntary Verified 08/19/21 07:20 Spasms Assessment & Plan Assessment & Plan (1) Schizoaffective disorder, bipolar type: Status: Acute Code(s): F25.0 - Schizoaffective disorder, bipolar type (2) Lumbar radiculopathy: Status: Acute Code(s): M54.16 - Radiculopathy, lumbar region (3) Hip pain, left: Status: Acute Code(s): M25.552 - Pain in left hip Plan 11/03/21: Continue current plan. Support in transition I spent minutes with the patient and/or on the patient floor today, greater than?50% of which was spent counseling/coordinating care. Patient educated on: therapeutic strategies Informed Consent: understands Reason for contiued inpatient stay Substantial Risk for: inability to function and rapid decompensation
[2021-11-03] MEDS: rOPINIRole HCL 1 MG TABLET 2 MG PO (18:34)
[2021-11-03 21:30] VITALS: BP 134/92; PULSE 72; TEMP 36.3; O2SAT 95
[2021-11-03] MEDS: Melatonin 3 MG TABLET 9 MG PO (21:30)
[2021-11-03] MEDS: QUEtiapine Fumarate 300 MG TABLET 600 MG PO (21:30)
[2021-11-03] MEDS: LORazepam 1 MG TABLET PO (21:31)
[2021-11-03] MEDS: hydrOXYzine HCL 25 MG TABLET PO (21:32)
[2021-11-03] MEDS: traZODone HCL 50 MG TABLET PO (21:33)
[2021-11-04 06:00] VITALS: BP 128/84; PULSE 88; RESP 16; TEMP 36; O2SAT 98
[2021-11-04] MEDS: Nicotine Polacrilex 2 MG GUM 4 MG BUCCAL (09:40)
[2021-11-04] MEDS: Sennosides/Docusate Sodium TABLET 1 TAB PO ×2 (09:40→19:43)
[2021-11-04] MEDS: DULoxetine HCl 30 MG CAPSULE.DR PO (09:40)
[2021-11-04] MEDS: Cholecalciferol (Vitamin D3) 10 MCG TABLET PO (09:40)
[2021-11-04] MEDS: Gabapentin 400 MG CAPSULE 800 MG PO ×3 (09:40→19:42)
[2021-11-04] MEDS: rOPINIRole HCL 0.5 MG TABLET PO (09:41)
[2021-11-04] MEDS: Lithium Carbonate 300 MG TABLET PO ×2 (09:41→19:43)
[2021-11-04] MEDS: Cyanocobalamin (Vitamin B-12) 100 MCG TABLET PO (09:41)
[2021-11-04] MEDS: Multivitamin TABLET 1 TAB PO (09:41)
[2021-11-04] MEDS: QUEtiapine Fumarate 100 MG TABLET PO (09:41)
[2021-11-04] MEDS: Diclofenac Sodium Delayed Rel 50 MG TABLET.DR PO ×3 (09:41→19:43)
[2021-11-04] MEDS: amLODIPine Besylate 2.5 MG TABLET PO (09:41)
[2021-11-04] MEDS: Nicotine 14 MG PATCH.TD24 TRANSDERMA (09:43)
[2021-11-04] MEDS: Calcium Carbonate 750 MG TAB.CHEW PO ×3 (11:25→22:36)
--- NOTE | 2021-11-04 13:40 | P.PNPSI_ITS ---
Subjective Subjective Date of Service: 11/04/21 Reason For Visit: Bipolar, Schizoaffective Subjective Notes: Conditional Voluntary Healthcare Proxy: No Guardianship: No Medical Problems Affecting Mental Status: No Interim History: Blanca expressing anxiety about discharge, frustration about not being able to control rules (smoking) at future placements and apprehension about a new situation and timing. I have become safe and comfortable here-I trust and know what to expect from all of you. Medication Compliance: Yes Side effects from medications: No Attending Groups: No Review of Systems Acute medical concerns: No Medical Review of Systems: unchanged Review of Systems Psychiatric: Reports anxiety, Reports depression, Reports auditory hallucinations, Reports hopelessness, Reports visual hallucinations and Reports hallucinations Mental Status Exam Mental Status Exam Patient Appearance: Appropriate Patient Orientation: Person, Place, Time and Situation Level of Consciousness: Alert Patient Behavior: Talkative, Cooperative and Good Eye Contact Mood Description: Depressed and Anxious Affect Description: Flat Patient Cognition Impaired: No Ability to Follow Directions: Good Speech Pattern: Spontaneous Speech Memory Description: Episodic Impaired Hallucinations: Auditory Delusions: Paranoid Ideation Perceptual Disturbances: Depersonalization and Derealization Thought Process: Distracted and Rumination Thought Content: positive for [place] and positive for Perseveration Depressive Symptoms: Unhappiness and Low Self Esteem Judgement: Good Diagnostics Vital Signs (24Hr): Vital Signs - 24 hr 11/03/21 21:30 11/04/21 06:00 Temperature 97.4 F 96.8 F Pulse Rate 72 88 Respiratory Rate 16 Blood Pressure 134/92 H 128/84 Pulse Oximetry 95 98 BMI result Body Mass Index 32.8 Labs Results: 10/29/21 07:54 10/29/21 07:54 Imaging Radiology Impressions: ITS Impressions Abdomen Ultrasound 09/01/21 08:59 IMPRESSION: Slightly echogenic liver. Limited evaluation of the gallbladder as the patient has recently eaten. No gallstone seen. Limited visualization of the pancreas. Hip X-Ray 09/16/21 14:47 IMPRESSION: Moderate to severe left hip arthritis. Medications Medications Current Medications Acetaminophen (Acetaminophen 325 Mg Tablet) 975 mg PO Q6H PRN PRN Reason: Headache/Pain Mild Scale (1-3) Last Admin: 10/30/21 09:24 Dose: 975 mg Documented by: Al Hydroxide/Mg Hydroxide (Magnesium Hydrox/Alum Hydrox 30 Ml Oral.Susp) 30 ml PO Q6H PRN PRN Reason: Heartburn/Nausea Last Admin: 08/22/21 05:54 Dose: 30 ml Documented by: Amlodipine Besylate (Amlodipine Besylate 2.5 Mg Tablet) 2.5 mg PO DAILY [facility]; Protocol Last Admin: 11/04/21 09:41 Dose: 2.5 mg Documented by: Artificial Tears (Artificial Tears 15 Ml Drops) 2 drop EYE-BOTH Q4H PRN PRN Reason: Dry Eyes Last Admin: 10/24/21 08:47 Dose: 2 drop Documented by: Aspirin (Aspirin Enteric Coated 325 Mg Tablet.) 650 mg PO DAILY PRN PRN Reason: headache Last Admin: 09/06/21 12:18 Dose: 650 mg Documented by: Benzocaine (Benzocaine 20 % Oral Gel 9 Gm Tube) 1 appl MUCOUS MEM QID PRN; Protocol PRN Reason: Mouth Sore Pain Last Admin: 08/31/21 03:05 Dose: 1 appl Documented by: Calcium Carbonate (Calcium Carbonate 500 Mg Tablet) 500 mg PO DAILY [facility] Last Admin: 11/04/21 09:41 Dose: 500 mg Documented by: Calcium Carbonate (Calcium Carbonate 750 Mg Tab.Chew) 750 mg PO Q4H PRN PRN Reason: Heartburn Last Admin: 11/04/21 11:25 Dose: 750 mg Documented by: Clotrimazole (Clotrimazole 1 % Cream 15 Gm Tube) 1 appl TOPICAL BID [facility]; Protocol Last Admin: 11/04/21 09:45 Dose: Not Given Documented by: [place] Butter/Zinc Oxide ([place] Butter/Zinc Oxide Supp.Rect) 1 supp [place] BEDTIME PRN PRN Reason: hemorrhoid pain Last Admin: 09/13/21 21:15 Dose: 1 supp Documented by: Cyanocobalamin (Cyanocobalamin (Vitamin B-12) 100 Mcg Tablet) 100 mcg PO DAILY [facility] Last Admin: 11/04/21 09:41 Dose: 100 mcg Documented by: Diclofenac Sodium (Diclofenac Sodium Delayed Rel 50 Mg Tablet.) 50 mg PO TID [facility] Last Admin: 11/04/21 09:41 Dose: 50 mg Documented by: Diphenhydramine HCl (Diphenhydramine Hcl 25 Mg Tablet) 50 mg PO Q6H PRN PRN Reason: eps Last Admin: 09/22/21 23:48 Dose: 50 mg Documented by: Docusate Sodium (Docusate Sodium 100 Mg Capsule) 100 mg PO BID PRN PRN Reason: Constipation Duloxetine HCl (Duloxetine Hcl 30 Mg Capsule.Dr) 30 mg PO DAILY [facility] Last Admin: 11/04/21 09:40 Dose: 30 mg Documented by: Gabapentin (Gabapentin 400 Mg Capsule) 800 mg PO TID [facility] Last Admin: 11/04/21 09:40 Dose: 800 mg Documented by: Gabapentin (Gabapentin 100 Mg Capsule) 100 mg PO TID PRN PRN Reason: neuropathic pain Last Admin: 09/26/21 17:14 Dose: 100 mg Documented by: Hydroxyzine HCl (Hydroxyzine Hcl 25 Mg Tablet) 25 mg PO BEDTIME PRN PRN Reason: Anxiety Last Admin: 09/22/21 23:48 Dose: 25 mg Documented by: Hydroxyzine HCl (Hydroxyzine Hcl 25 Mg Tablet) 25 mg PO BEDTIME [facility] Last Admin: 11/03/21 21:32 Dose: 25 mg Documented by: Lidocaine (Lidocaine 4 % Patch Adh..Patch) 1 patch TRANSDERMA DAILY [facility]; Protocol Last Admin: 11/04/21 09:45 Dose: Not Given Documented by: [place] Carbonate ([place] Carbonate 300 Mg Tablet) 300 mg PO BID [facility] Last Admin: 11/04/21 09:41 Dose: 300 mg Documented by: Lorazepam (Lorazepam 1 Mg Tablet) 1 mg PO BID PRN PRN Reason: Anxiety Last Admin: 11/03/21 21:31 Dose: 1 mg Documented by: Magnesium Citrate (Magnesium Citrate 300 Ml Solution) 300 ml PO DAILY PRN PRN Reason: Constipation Last Admin: 10/28/21 15:26 Dose: 300 ml Documented by: Magnesium Hydroxide (Milk Of Magnesia 30 Ml Oral.Susp) 30 ml PO DAILY PRN PRN Reason: Constipation Last Admin: 08/31/21 20:05 Dose: 30 ml Documented by: Melatonin (Melatonin 3 Mg Tablet) 9 mg PO BEDTIME [facility] Last Admin: 11/03/21 21:30 Dose: 9 mg Documented by: Multi-Ingred Cream/Lotion/Oil/Oint (Mineral Oil/Petrolatum,White 106 Gm Tube) 1 appl TOPICAL BID [facility]; Protocol Last Admin: 11/04/21 09:45 Dose: Not Given Documented by: Multivitamins/Vitamin C (Multivitamin Tablet) 1 tab PO DAILY [facility] Last Admin: 11/04/21 09:41 Dose: 1 tab Documented by: Nicotine (Nicotine 14 Mg Patch.Td24) 14 mg TRANSDERMA DAILY [facility] Last Admin: 11/04/21 09:43 Dose: 14 mg Documented by: Nicotine Polacrilex (Nicotine Polacrilex 2 Mg Gum) 4 mg BUCCAL Q1H PRN PRN Reason: Nicotine Cravings Last Admin: 11/04/21 09:40 Dose: 4 mg Documented by: Patient Own Medication (Dry Eye Relief) 1 each EYE-BOTH QID [facility] Last Admin: 11/04/21 09:39 Dose: 1 each Documented by: Polyethylene Glycol (Polyethylene Glycol 3350 17 Gm Powd.Pack) 17 gm PO DAILY PRN PRN Reason: Constipation Last Admin: 11/03/21 14:26 Dose: 17 gm Documented by: Psyllium Hydrophilic Mucilloid (Psyllium Seed 3.4 Gm Powd.Pack) 3.4 gm PO DAILY [facility] Last Admin: 11/04/21 09:43 Dose: 3.4 gm Documented by: Quetiapine Fumarate (Quetiapine Fumarate 200 Mg Tablet) 200 mg PO Q6H PRN PRN Reason: anxiety/restlessness Last Admin: 09/21/21 02:38 Dose: 200 mg Documented by: Quetiapine Fumarate (Quetiapine Fumarate 100 Mg Tablet) 100 mg PO DAILY [facility] Last Admin: 11/04/21 09:41 Dose: 100 mg Documented by: Quetiapine Fumarate (Quetiapine Fumarate 300 Mg Tablet) 600 mg PO BEDTIME [facility] Last Admin: 11/03/21 21:30 Dose: 600 mg Documented by: Ropinirole HCl (Ropinirole Hcl 0.5 Mg Tablet) 0.5 mg PO 0800 [facility] Last Admin: 11/04/21 09:41 Dose: 0.5 mg Documented by: Ropinirole HCl (Ropinirole Hcl 1 Mg Tablet) 2 mg PO DAILY@1900 [facility] Last Admin: 11/03/21 18:34 Dose: 2 mg Documented by: Senna/Docusate Sodium (Sennosides/Docusate Sodium Tablet) 1 tab PO BID [facility] Last Admin: 11/04/21 09:40 Dose: 1 tab Documented by: Simethicone (Simethicone 80 Mg Tab.Chew) 80 mg PO QIDWMHS PRN PRN Reason: indigestion Sodium Chloride (Sodium Chloride 0.65 % Nasal 44 Ml Sprbtl) 1 spray NOSTRIL-B Q1H PRN PRN Reason: congestion Last Admin: 11/01/21 15:22 Dose: 1 spray Documented by: Trazodone HCl (Trazodone Hcl 50 Mg Tablet) 50 mg PO BEDTIME PRN PRN Reason: insomnia Last Admin: 11/03/21 21:33 Dose: 50 mg Documented by: Trolamine Salicylate/Aloe Vera (Trolamine Salicylate 10%/Aloe Cream 35.4 Gm) 1 appl TOPICAL TID PRN PRN Reason: sciatica Last Admin: 09/03/21 05:27 Dose: 1 appl Documented by: Vitamin D (Cholecalciferol (Vitamin D3) 10 Mcg Tablet) 10 mcg PO DAILY [facility] Last Admin: 11/04/21 09:40 Dose: 10 mcg Documented by: Allergies Allergies Allergy/AdvReac Type Severity Reaction Status Date / Time aripiprazole [From Abilify] Allergy Unknown Involuntary Verified 08/19/21 07:20 Spasms chlorpromazine Allergy Unknown Nausea and Verified 08/19/21 07:20 [From Thorazine] Vomiting haloperidol [From Haldol] Allergy Unknown Involuntary Verified 08/19/21 07:20 Spasms olanzapine [From Zyprexa] Allergy Unknown Involuntary Verified 08/19/21 07:20 Spasms paliperidone [From Invega] Allergy Unknown Hallucinati Verified 08/19/21 07:20 ons risperidone Allergy Unknown Involuntary Verified 08/19/21 07:20 Spasms Assessment & Plan Assessment & Plan (1) Schizoaffective disorder, bipolar type: Status: Acute Code(s): F25.0 - Schizoaffective disorder, bipolar type (2) Lumbar radiculopathy: Status: Acute Code(s): M54.16 - Radiculopathy, lumbar region (3) Hip pain, left: Status: Acute Code(s): M25.552 - Pain in left hip Plan 11/04/21: Continue current plan. Support in transition I spent minutes with the patient and/or on the patient floor today, greater than?50% of which was spent counseling/coordinating care. Patient educated on: therapeutic strategies Informed Consent: understands Reason for contiued inpatient stay Substantial Risk for: inability to function and rapid decompensation
[2021-11-04 18:00] VITALS: BP 128/69; PULSE 85; RESP 16; TEMP 36.4; O2SAT 98
[2021-11-04] MEDS: polyethylene glycoL 3350 17 GM POWD.PACK PO (19:07)
[2021-11-04] MEDS: rOPINIRole HCL 1 MG TABLET 2 MG PO (19:07)
[2021-11-04] MEDS: Melatonin 3 MG TABLET 9 MG PO (19:42)
[2021-11-04] MEDS: LORazepam 1 MG TABLET PO (19:43)
[2021-11-04] MEDS: hydrOXYzine HCL 25 MG TABLET PO (19:44)
[2021-11-04] MEDS: QUEtiapine Fumarate 300 MG TABLET 600 MG PO (19:44)
[2021-11-04] MEDS: traZODone HCL 50 MG TABLET PO (22:36)
[2021-11-05] MEDS: Sodium Chloride 0.65 % Nasal 44 ML SPRBTL 1 SPRAY NOSTRIL-B ×3 (09:19→15:41)
[2021-11-05] MEDS: Mineral Oil/Petrolatum,White 106 GM Tube 1 APPL TOPICAL (09:19)
[2021-11-05] MEDS: Sennosides/Docusate Sodium TABLET 1 TAB PO ×2 (09:20→19:23)
[2021-11-05] MEDS: amLODIPine Besylate 2.5 MG TABLET PO (09:20)
[2021-11-05] MEDS: Cholecalciferol (Vitamin D3) 10 MCG TABLET PO (09:20)
[2021-11-05] MEDS: Gabapentin 400 MG CAPSULE 800 MG PO ×2 (09:20→19:25)
[2021-11-05] MEDS: rOPINIRole HCL 0.5 MG TABLET PO (09:20)
[2021-11-05] MEDS: Lithium Carbonate 300 MG TABLET PO ×2 (09:21→19:23)
[2021-11-05] MEDS: Cyanocobalamin (Vitamin B-12) 100 MCG TABLET PO (09:21)
[2021-11-05] MEDS: DULoxetine HCl 30 MG CAPSULE.DR PO (09:21)
[2021-11-05] MEDS: QUEtiapine Fumarate 100 MG TABLET PO (09:21)
[2021-11-05] MEDS: LORazepam 1 MG TABLET PO ×2 (09:21→21:06)
[2021-11-05] MEDS: Multivitamin TABLET 1 TAB PO (09:22)
[2021-11-05] MEDS: Diclofenac Sodium Delayed Rel 50 MG TABLET.DR PO ×3 (09:37→19:24)
[2021-11-05] MEDS: Nicotine Polacrilex 2 MG GUM 4 MG BUCCAL ×2 (11:31→14:59)
[2021-11-05] MEDS: Omeprazole 20 MG CAPSULE.DR PO (15:00)
--- NOTE | 2021-11-05 15:39 | HO.PSYCHPN ---
Subjective Subjective Date of Service: 11/05/21 Reason For Visit: Bipolar, Schizoaffective Subjective Notes: Conditional Voluntary Healthcare Proxy: No Guardianship: No Medical Problems Affecting Mental Status: No Interim History: Tolerated room change and is caring for her new room-mate. Continues to express concern about care mgt transition and worry. This along with worry about a new placement. Discussed GERD/Constipation sx. Agrees to colace scheduled bid, will allow simethacone prn and asks for prilosec prn Medication Compliance: Yes Side effects from medications: No Attending Groups: No Review of Systems Acute medical concerns: No Medical Review of Systems: unchanged Review of Systems Psychiatric: Reports anxiety, Reports depression, Reports auditory hallucinations, Reports hopelessness, Reports visual hallucinations and Reports hallucinations Mental Status Exam Mental Status Exam Patient Appearance: Appropriate Patient Orientation: Person, Place, Time and Situation Level of Consciousness: Alert Patient Behavior: Talkative, Cooperative and Good Eye Contact Mood Description: Depressed and Anxious Affect Description: Flat Patient Cognition Impaired: No Ability to Follow Directions: Good Speech Pattern: Spontaneous Speech Memory Description: Episodic Impaired Hallucinations: Auditory Delusions: Paranoid Ideation Perceptual Disturbances: Depersonalization and Derealization Thought Process: Distracted and Rumination Thought Content: positive for [place] and positive for [place]sever[place] Depressive Symptoms: Unhappiness and Low Self Esteem Judgement: Good Diagnostics Vital Signs (24Hr): Vital Signs - 24 hr 11/04/21 18:00 Temperature 97.6 F Pulse Rate 85 Respiratory Rate 16 Blood Pressure 128/69 Pulse Oximetry 98 BMI result Body Mass Index 32.8 Labs Results: 10/29/21 07:54 10/29/21 07:54 Imaging Radiology Impressions: ITS Impressions Abdomen Ultrasound 09/01/21 08:59 IMPRESSION: Slightly echogenic liver. Limited evaluation of the gallbladder as the patient has recently eaten. No gallstone seen. Limited visualization of the pancreas. Hip X-Ray 09/16/21 14:47 IMPRESSION: Moderate to severe left hip arthritis. Medications Medications Current Medications Acetaminophen (Acetaminophen 325 Mg Tablet) 975 mg PO Q6H PRN PRN Reason: Headache/Pain Mild Scale (1-3) Last Admin: 10/30/21 09:24 Dose: 975 mg Documented by: Al Hydroxide/Mg Hydroxide (Magnesium Hydrox/Alum Hydrox 30 Ml Oral.Susp) 30 ml PO Q6H PRN PRN Reason: Heartburn/Nausea Last Admin: 08/22/21 05:54 Dose: 30 ml Documented by: Amlodipine Besylate (Amlodipine Besylate 2.5 Mg Tablet) 2.5 mg PO DAILY [facility]; Protocol Last Admin: 11/05/21 09:20 Dose: 2.5 mg Documented by: Artificial Tears (Artificial Tears 15 Ml Drops) 2 drop EYE-BOTH Q4H PRN PRN Reason: Dry Eyes Last Admin: 10/24/21 08:47 Dose: 2 drop Documented by: Aspirin (Aspirin Enteric Coated 325 Mg Tablet.) 650 mg PO DAILY PRN PRN Reason: headache Last Admin: 09/06/21 12:18 Dose: 650 mg Documented by: Benzocaine (Benzocaine 20 % Oral Gel 9 Gm Tube) 1 appl MUCOUS MEM QID PRN; Protocol PRN Reason: Mouth Sore Pain Last Admin: 08/31/21 03:05 Dose: 1 appl Documented by: Calcium Carbonate (Calcium Carbonate 500 Mg Tablet) 500 mg PO DAILY [facility] Last Admin: 11/05/21 09:21 Dose: 500 mg Documented by: Calcium Carbonate (Calcium Carbonate 750 Mg Tab.Chew) 750 mg PO Q4H PRN PRN Reason: Heartburn Last Admin: 11/04/21 22:36 Dose: 750 mg Documented by: Clotrimazole (Clotrimazole 1 % Cream 15 Gm Tube) 1 appl TOPICAL BID [facility]; Protocol Last Admin: 11/05/21 09:35 Dose: Not Given Documented by: [place] Butter/Zinc Oxide ([place] Butter/Zinc Oxide Supp.Rect) 1 supp [place] BEDTIME PRN PRN Reason: hemorrhoid pain Last Admin: 09/13/21 21:15 Dose: 1 supp Documented by: Cyanocobalamin (Cyanocobalamin (Vitamin B-12) 100 Mcg Tablet) 100 mcg PO DAILY [facility] Last Admin: 11/05/21 09:21 Dose: 100 mcg Documented by: Diclofenac Sodium (Diclofenac Sodium Delayed Rel 50 Mg Tablet.) 50 mg PO TID [facility] Last Admin: 11/05/21 14:59 Dose: 50 mg Documented by: Diphenhydramine HCl (Diphenhydramine Hcl 25 Mg Tablet) 50 mg PO Q6H PRN PRN Reason: eps Last Admin: 09/22/21 23:48 Dose: 50 mg Documented by: Docusate Sodium (Docusate Sodium 100 Mg Capsule) 100 mg PO BID [facility] Duloxetine HCl (Duloxetine Hcl 30 Mg Capsule.Dr) 30 mg PO DAILY [facility] Last Admin: 11/05/21 09:21 Dose: 30 mg Documented by: Gabapentin (Gabapentin 400 Mg Capsule) 800 mg PO TID [facility] Last Admin: 11/05/21 09:20 Dose: 800 mg Documented by: Gabapentin (Gabapentin 100 Mg Capsule) 100 mg PO TID PRN PRN Reason: neuropathic pain Last Admin: 09/26/21 17:14 Dose: 100 mg Documented by: Hydroxyzine HCl (Hydroxyzine Hcl 25 Mg Tablet) 25 mg PO BEDTIME PRN PRN Reason: Anxiety Last Admin: 09/22/21 23:48 Dose: 25 mg Documented by: Hydroxyzine HCl (Hydroxyzine Hcl 25 Mg Tablet) 25 mg PO BEDTIME [facility] Last Admin: 11/04/21 19:44 Dose: 25 mg Documented by: Lidocaine (Lidocaine 4 % Patch Adh..Patch) 1 patch TRANSDERMA DAILY [facility]; Protocol Last Admin: 11/05/21 11:04 Dose: Not Given Documented by: [place] Carbonate ([place] Carbonate 300 Mg Tablet) 300 mg PO BID [facility] Last Admin: 11/05/21 09:21 Dose: 300 mg Documented by: Lorazepam (Lorazepam 1 Mg Tablet) 1 mg PO BID PRN PRN Reason: Anxiety Last Admin: 11/05/21 09:21 Dose: 1 mg Documented by: Magnesium Citrate (Magnesium Citrate 300 Ml Solution) 300 ml PO DAILY PRN PRN Reason: Constipation Last Admin: 10/28/21 15:26 Dose: 300 ml Documented by: Magnesium Hydroxide (Milk Of Magnesia 30 Ml Oral.Susp) 30 ml PO DAILY PRN PRN Reason: Constipation Last Admin: 08/31/21 20:05 Dose: 30 ml Documented by: Melatonin (Melatonin 3 Mg Tablet) 9 mg PO BEDTIME [facility] Last Admin: 11/04/21 19:42 Dose: 9 mg Documented by: Multi-Ingred Cream/Lotion/Oil/Oint (Mineral Oil/Petrolatum,White 106 Gm Tube) 1 appl TOPICAL BID [facility]; Protocol Last Admin: 11/05/21 09:19 Dose: 1 appl Documented by: Multivitamins/Vitamin C (Multivitamin Tablet) 1 tab PO DAILY [facility] Last Admin: 11/05/21 09:22 Dose: 1 tab Documented by: Nicotine (Nicotine 14 Mg Patch.Td24) 14 mg TRANSDERMA DAILY [facility] Last Admin: 11/05/21 12:28 Dose: Not Given Documented by: Nicotine Polacrilex (Nicotine Polacrilex 2 Mg Gum) 4 mg [place]CCAL Q1H PRN PRN Reason: Nicotine Cravings Last Admin: 11/05/21 14:59 Dose: 4 mg Documented by: Patient Own Medication (Dry Eye Relief) 1 each EYE-BOTH QID [facility] Last Admin: 11/05/21 15:03 Dose: 1 each Documented by: Omeprazole (Omeprazole 20 Mg Capsule.Dr) 20 mg PO BID@0630,1630 [facility] Last Admin: 11/05/21 15:00 Dose: 20 mg Documented by: Polyethylene Glycol (Polyethylene Glycol 3350 17 Gm Powd.Pack) 17 gm PO DAILY PRN PRN Reason: Constipation Last Admin: 11/04/21 19:07 Dose: 17 gm Documented by: Psyllium Hydrophilic Mucilloid (Psyllium Seed 3.4 Gm Powd.Pack) 3.4 gm PO DAILY [facility] Last Admin: 11/05/21 09:35 Dose: 3.4 gm Documented by: Quetiapine Fumarate (Quetiapine Fumarate 200 Mg Tablet) 200 mg PO Q6H PRN PRN Reason: anxiety/restlessness Last Admin: 09/21/21 02:38 Dose: 200 mg Documented by: Quetiapine Fumarate (Quetiapine Fumarate 100 Mg Tablet) 100 mg PO DAILY [facility] Last Admin: 11/05/21 09:21 Dose: 100 mg Documented by: Quetiapine Fumarate (Quetiapine Fumarate 300 Mg Tablet) 600 mg PO BEDTIME [facility] Last Admin: 11/04/21 19:44 Dose: 600 mg Documented by: Ropinirole HCl (Ropinirole Hcl 0.5 Mg Tablet) 0.5 mg PO 0800 [facility] Last Admin: 11/05/21 09:20 Dose: 0.5 mg Documented by: Ropinirole HCl (Ropinirole Hcl 1 Mg Tablet) 2 mg PO DAILY@1900 [facility] Last Admin: 11/04/21 19:07 Dose: 2 mg Documented by: Senna/Docusate Sodium (Sennosides/Docusate Sodium Tablet) 1 tab PO BID [facility] Last Admin: 11/05/21 09:20 Dose: 1 tab Documented by: Simethicone (Simethicone 80 Mg Tab.Chew) 80 mg PO QIDWMHS PRN PRN Reason: indigestion Sodium Chloride (Sodium Chloride 0.65 % Nasal 44 Ml Sprbtl) 1 spray NOSTRIL-B Q1H PRN PRN Reason: congestion Last Admin: 11/05/21 15:03 Dose: 1 spray Documented by: Trazodone HCl (Trazodone Hcl 50 Mg Tablet) 50 mg PO BEDTIME PRN PRN Reason: insomnia Last Admin: 11/04/21 22:36 Dose: 50 mg Documented by: Trolamine Salicylate/Aloe Vera (Trolamine Salicylate 10%/Aloe Cream 35.4 Gm) 1 appl TOPICAL TID PRN PRN Reason: sciatica Last Admin: 09/03/21 05:27 Dose: 1 appl Documented by: Vitamin D (Cholecalciferol (Vitamin D3) 10 Mcg Tablet) 10 mcg PO DAILY [facility] Last Admin: 11/05/21 09:20 Dose: 10 mcg Documented by: Allergies Allergies Allergy/AdvReac Type Severity Reaction Status Date / Time aripiprazole [From Abilify] Allergy Unknown Involuntary Verified 08/19/21 07:20 Spasms chlorpromazine Allergy Unknown Nausea and Verified 08/19/21 07:20 [From Thorazine] Vomiting haloperidol [From Haldol] Allergy Unknown Involuntary Verified 08/19/21 07:20 Spasms olanzapine [From Zyprexa] Allergy Unknown Involuntary Verified 08/19/21 07:20 Spasms paliperidone [From Invega] Allergy Unknown Hallucinati Verified 08/19/21 07:20 ons risperidone Allergy Unknown Involuntary Verified 08/19/21 07:20 Spasms Assessment & Plan Assessment & Plan (1) Schizoaffective disorder, bipolar type: Status: Acute Code(s): F25.0 - Schizoaffective disorder, bipolar type (2) Lumbar radiculopathy: Status: Acute Code(s): M54.16 - Radiculopathy, lumbar region (3) Hip pain, left: Status: Acute Code(s): M25.552 - Pain in left hip Plan 11/05/21: Continue current plan. Support in transition I spent minutes with the patient and/or on the patient floor today, greater than?50% of which was spent counseling/coordinating care. Patient educated on: medication risk/benefits, therapeutic strategies and medical condition Informed Consent: understands and further education needed Reason for contiued inpatient stay Substantial Risk for: inability to function and rapid decompensation
[2021-11-05] MEDS: Simethicone 80 MG TAB.CHEW PO (17:25)
[2021-11-05] MEDS: Calcium Carbonate 750 MG TAB.CHEW PO (17:25)
[2021-11-05] MEDS: rOPINIRole HCL 1 MG TABLET 2 MG PO (17:25)
[2021-11-05] MEDS: Magnesium Citrate 300 ML SOLUTION PO (17:48)
[2021-11-05 18:00] VITALS: BP 119/82; PULSE 87; RESP 16; TEMP 36.4; O2SAT 98
[2021-11-05] MEDS: hydrOXYzine HCL 25 MG TABLET PO (19:23)
[2021-11-05] MEDS: QUEtiapine Fumarate 300 MG TABLET 600 MG PO (19:23)
[2021-11-05] MEDS: Docusate Sodium 100 MG CAPSULE PO (19:24)
[2021-11-05] MEDS: Melatonin 3 MG TABLET 9 MG PO (19:24)
[2021-11-05] MEDS: polyethylene glycoL 3350 17 GM POWD.PACK PO (21:06)
[2021-11-05] MEDS: traZODone HCL 50 MG TABLET PO (21:06)
[2021-11-06 09:00] VITALS: BP 136/84; PULSE 82; TEMP 36.4
[2021-11-06] MEDS: Gabapentin 400 MG CAPSULE 800 MG PO ×4 (09:21→20:11)
[2021-11-06] MEDS: Docusate Sodium 100 MG CAPSULE PO ×2 (09:21→20:11)
[2021-11-06] MEDS: Sennosides/Docusate Sodium TABLET 1 TAB PO ×2 (09:21→20:11)
[2021-11-06] MEDS: Omeprazole 20 MG CAPSULE.DR PO ×2 (09:21→16:30)
[2021-11-06] MEDS: Cholecalciferol (Vitamin D3) 10 MCG TABLET PO (09:21)
[2021-11-06] MEDS: LORazepam 1 MG TABLET PO ×2 (09:21→14:52)
[2021-11-06] MEDS: rOPINIRole HCL 0.5 MG TABLET PO (09:21)
[2021-11-06] MEDS: DULoxetine HCl 30 MG CAPSULE.DR PO (09:21)
[2021-11-06] MEDS: Diclofenac Sodium Delayed Rel 50 MG TABLET.DR PO ×3 (09:22→20:10)
[2021-11-06] MEDS: amLODIPine Besylate 2.5 MG TABLET PO (09:22)
[2021-11-06] MEDS: Multivitamin TABLET 1 TAB PO (09:23)
[2021-11-06] MEDS: Lithium Carbonate 300 MG TABLET PO ×2 (09:23→20:10)
[2021-11-06] MEDS: Cyanocobalamin (Vitamin B-12) 100 MCG TABLET PO (09:23)
[2021-11-06] MEDS: Nicotine Polacrilex 2 MG GUM 4 MG BUCCAL ×4 (09:23→20:15)
[2021-11-06] MEDS: QUEtiapine Fumarate 100 MG TABLET PO (09:23)
[2021-11-06] MEDS: Nicotine 14 MG PATCH.TD24 TRANSDERMA (09:24)
[2021-11-06] MEDS: Mineral Oil/Petrolatum,White 106 GM Tube 1 APPL TOPICAL (09:24)
[2021-11-06] MEDS: Sodium Chloride 0.65 % Nasal 44 ML SPRBTL 1 SPRAY NOSTRIL-B (09:24)
--- NOTE | 2021-11-06 10:02 | HO.PSYCHPN ---
Subjective Subjective Date of Service: 11/06/21 Reason For Visit: Bipolar, Schizoaffective Subjective Notes: Conditional Voluntary Interim History: Patient was seen and discussed in rounds today. She continues to be withdrawn. She has been anxious about her discharge planning. No complaints of depression. She is hoping to be able to go to respite as a 1st step after discharge. She has been med compliant. No complaints or side effects. Eating and sleeping adequately. No changes were made today Review of Systems Psychiatric: Reports anxiety, Reports depression, Reports auditory hallucinations, Reports hopelessness, Reports visual hallucinations and Reports hallucinations Mental Status Exam Mental Status Exam Patient Appearance: Appropriate Patient Orientation: Person, Place, Time and Situation Level of Consciousness: Alert Patient Behavior: Talkative, Cooperative and Good Eye Contact Mood Description: Depressed and Anxious Affect Description: Flat Patient Cognition Impaired: No Ability to Follow Directions: Good Speech Pattern: Spontaneous Speech Memory Description: Episodic Impaired Hallucinations: Auditory Delusions: Paranoid Ideation Perceptual Disturbances: Depersonalization and Derealization Thought Process: Distracted and Rumination Thought Content: positive for [place] and positive for Perseveration Depressive Symptoms: Unhappiness and Low Self Esteem Judgement: Good Diagnostics Vital Signs (24Hr): Vital Signs - 24 hr 11/05/21 18:00 Temperature 97.5 F Pulse Rate 87 Respiratory Rate 16 Blood Pressure 119/82 Pulse Oximetry 98 BMI result Body Mass Index 32.8 Labs Results: 10/29/21 07:54 10/29/21 07:54 Imaging Radiology Impressions: ITS Impressions Abdomen Ultrasound 09/01/21 08:59 IMPRESSION: Slightly echogenic liver. Limited evaluation of the gallbladder as the patient has recently eaten. No gallstone seen. Limited visualization of the pancreas. Hip X-Ray 09/16/21 14:47 IMPRESSION: Moderate to severe left hip arthritis. Medications Medications Current Medications Acetaminophen (Acetaminophen 325 Mg Tablet) 975 mg PO Q6H PRN PRN Reason: Headache/Pain Mild Scale (1-3) Last Admin: 10/30/21 09:24 Dose: 975 mg Documented by: Al Hydroxide/Mg Hydroxide (Magnesium Hydrox/Alum Hydrox 30 Ml Oral.Susp) 30 ml PO Q6H PRN PRN Reason: Heartburn/Nausea Last Admin: 08/22/21 05:54 Dose: 30 ml Documented by: Amlodipine Besylate (Amlodipine Besylate 2.5 Mg Tablet) 2.5 mg PO DAILY [facility]; Protocol Last Admin: 11/06/21 09:22 Dose: 2.5 mg Documented by: Artificial Tears (Artificial Tears 15 Ml Drops) 2 drop EYE-BOTH Q4H PRN PRN Reason: Dry Eyes Last Admin: 10/24/21 08:47 Dose: 2 drop Documented by: Aspirin (Aspirin Enteric Coated 325 Mg Tablet.) 650 mg PO DAILY PRN PRN Reason: headache Last Admin: 09/06/21 12:18 Dose: 650 mg Documented by: Benzocaine (Benzocaine 20 % Oral Gel 9 Gm Tube) 1 appl MUCOUS MEM QID PRN; Protocol PRN Reason: Mouth Sore Pain Last Admin: 08/31/21 03:05 Dose: 1 appl Documented by: Calcium Carbonate (Calcium Carbonate 500 Mg Tablet) 500 mg PO DAILY [facility] Last Admin: 11/06/21 09:23 Dose: 500 mg Documented by: Calcium Carbonate (Calcium Carbonate 750 Mg Tab.Chew) 750 mg PO Q4H PRN PRN Reason: Heartburn Last Admin: 11/05/21 17:25 Dose: 750 mg Documented by: Clotrimazole (Clotrimazole 1 % Cream 15 Gm Tube) 1 appl TOPICAL BID [facility]; Protocol Last Admin: 11/06/21 10:01 Dose: Not Given Documented by: [place] Butter/Zinc Oxide ([place] Butter/Zinc Oxide Supp.Rect) 1 supp [place] BEDTIME PRN PRN Reason: hemorrhoid pain Last Admin: 09/13/21 21:15 Dose: 1 supp Documented by: Cyanocobalamin (Cyanocobalamin (Vitamin B-12) 100 Mcg Tablet) 100 mcg PO DAILY [facility] Last Admin: 11/06/21 09:23 Dose: 100 mcg Documented by: Diclofenac Sodium (Diclofenac Sodium Delayed Rel 50 Mg Tablet.) 50 mg PO TID [facility] Last Admin: 11/06/21 09:22 Dose: 50 mg Documented by: Diphenhydramine HCl (Diphenhydramine Hcl 25 Mg Tablet) 50 mg PO Q6H PRN PRN Reason: eps Last Admin: 09/22/21 23:48 Dose: 50 mg Documented by: Docusate Sodium (Docusate Sodium 100 Mg Capsule) 100 mg PO BID [facility] Last Admin: 11/06/21 09:21 Dose: 100 mg Documented by: Duloxetine HCl (Duloxetine Hcl 30 Mg Capsule.) 30 mg PO DAILY [facility] Last Admin: 11/06/21 09:21 Dose: 30 mg Documented by: Gabapentin (Gabapentin 400 Mg Capsule) 800 mg PO TID [facility] Last Admin: 11/06/21 10:01 Dose: 800 mg Documented by: Gabapentin (Gabapentin 100 Mg Capsule) 100 mg PO TID PRN PRN Reason: neuropathic pain Last Admin: 09/26/21 17:14 Dose: 100 mg Documented by: Hydroxyzine HCl (Hydroxyzine Hcl 25 Mg Tablet) 25 mg PO BEDTIME PRN PRN Reason: Anxiety Last Admin: 09/22/21 23:48 Dose: 25 mg Documented by: Hydroxyzine HCl (Hydroxyzine Hcl 25 Mg Tablet) 25 mg PO BEDTIME [facility] Last Admin: 11/05/21 19:23 Dose: 25 mg Documented by: Lidocaine (Lidocaine 4 % Patch Adh..Patch) 1 patch TRANSDERMA DAILY [facility]; Protocol Last Admin: 11/06/21 10:02 Dose: Not Given Documented by: [place] Carbonate ([place] Carbonate 300 Mg Tablet) 300 mg PO BID [facility] Last Admin: 11/06/21 09:23 Dose: 300 mg Documented by: Lorazepam (Lorazepam 1 Mg Tablet) 1 mg PO BID PRN PRN Reason: Anxiety Last Admin: 11/06/21 09:21 Dose: 1 mg Documented by: Magnesium Citrate (Magnesium Citrate 300 Ml Solution) 300 ml PO DAILY PRN PRN Reason: Constipation Last Admin: 11/05/21 17:48 Dose: 300 ml Documented by: Magnesium Hydroxide (Milk Of Magnesia 30 Ml Oral.Susp) 30 ml PO DAILY PRN PRN Reason: Constipation Last Admin: 08/31/21 20:05 Dose: 30 ml Documented by: Melatonin (Melatonin 3 Mg Tablet) 9 mg PO BEDTIME [facility] Last Admin: 11/05/21 19:24 Dose: 9 mg Documented by: Multi-Ingred Cream/Lotion/Oil/Oint (Mineral Oil/Petrolatum,White 106 Gm Tube) 1 appl TOPICAL BID [facility]; Protocol Last Admin: 11/06/21 09:44 Dose: Not Given Documented by: Multivitamins/Vitamin C (Multivitamin Tablet) 1 tab PO DAILY [facility] Last Admin: 11/06/21 09:23 Dose: 1 tab Documented by: Nicotine (Nicotine 14 Mg Patch.Td24) 14 mg TRANSDERMA DAILY [facility] Last Admin: 11/06/21 09:24 Dose: 14 mg Documented by: Nicotine Polacrilex (Nicotine Polacrilex 2 Mg Gum) 4 mg BUCCAL Q1H PRN PRN Reason: Nicotine Cravings Last Admin: 11/06/21 09:23 Dose: 4 mg Documented by: Patient Own Medication (Dry Eye Relief) 1 each EYE-BOTH QID [facility] Last Admin: 11/06/21 09:43 Dose: Not Given Documented by: Omeprazole (Omeprazole 20 Mg Capsule.Dr) 20 mg PO BID@0630,1630 [facility] Last Admin: 11/06/21 09:21 Dose: 20 mg Documented by: Polyethylene Glycol (Polyethylene Glycol 3350 17 Gm Powd.Pack) 17 gm PO DAILY PRN PRN Reason: Constipation Last Admin: 11/05/21 21:06 Dose: 17 gm Documented by: Psyllium Hydrophilic Mucilloid (Psyllium Seed 3.4 Gm Powd.Pack) 3.4 gm PO DAILY [facility] Last Admin: 11/06/21 09:23 Dose: 3.4 gm Documented by: Quetiapine Fumarate (Quetiapine Fumarate 200 Mg Tablet) 200 mg PO Q6H PRN PRN Reason: anxiety/restlessness Last Admin: 09/21/21 02:38 Dose: 200 mg Documented by: Quetiapine Fumarate (Quetiapine Fumarate 100 Mg Tablet) 100 mg PO DAILY [facility] Last Admin: 11/06/21 09:23 Dose: 100 mg Documented by: Quetiapine Fumarate (Quetiapine Fumarate 300 Mg Tablet) 600 mg PO BEDTIME [facility] Last Admin: 11/05/21 19:23 Dose: 600 mg Documented by: Ropinirole HCl (Ropinirole Hcl 0.5 Mg Tablet) 0.5 mg PO 0800 [facility] Last Admin: 11/06/21 09:21 Dose: 0.5 mg Documented by: Ropinirole HCl (Ropinirole Hcl 1 Mg Tablet) 2 mg PO DAILY@1900 [facility] Last Admin: 11/05/21 17:25 Dose: 2 mg Documented by: Senna/Docusate Sodium (Sennosides/Docusate Sodium Tablet) 1 tab PO BID [facility] Last Admin: 11/06/21 09:21 Dose: 1 tab Documented by: Simethicone (Simethicone 80 Mg Tab.Chew) 80 mg PO QIDWMHS PRN PRN Reason: indigestion Last Admin: 11/05/21 17:25 Dose: 80 mg Documented by: Sodium Chloride (Sodium Chloride 0.65 % Nasal 44 Ml Sprbtl) 1 spray NOSTRIL-B Q1H PRN PRN Reason: congestion Last Admin: 11/06/21 09:24 Dose: 1 spray Documented by: Trazodone HCl (Trazodone Hcl 50 Mg Tablet) 50 mg PO BEDTIME PRN PRN Reason: insomnia Last Admin: 11/05/21 21:06 Dose: 50 mg Documented by: Trolamine Salicylate/Aloe Vera (Trolamine Salicylate 10%/Aloe Cream 35.4 Gm) 1 appl TOPICAL TID PRN PRN Reason: sciatica Last Admin: 09/03/21 05:27 Dose: 1 appl Documented by: Vitamin D (Cholecalciferol (Vitamin D3) 10 Mcg Tablet) 10 mcg PO DAILY [facility] Last Admin: 11/06/21 09:21 Dose: 10 mcg Documented by: Allergies Allergies Allergy/AdvReac Type Severity Reaction Status Date / Time aripiprazole [From Abilify] Allergy Unknown Involuntary Verified 08/19/21 07:20 Spasms chlorpromazine Allergy Unknown Nausea and Verified 08/19/21 07:20 [From Thorazine] Vomiting haloperidol [From Haldol] Allergy Unknown Involuntary Verified 08/19/21 07:20 Spasms olanzapine [From Zyprexa] Allergy Unknown Involuntary Verified 08/19/21 07:20 Spasms paliperidone [From Invega] Allergy Unknown Hallucinati Verified 08/19/21 07:20 ons risperidone Allergy Unknown Involuntary Verified 08/19/21 07:20 Spasms Assessment & Plan Assessment & Plan (1) Schizoaffective disorder, bipolar type: Status: Acute Code(s): F25.0 - Schizoaffective disorder, bipolar type (2) Lumbar radiculopathy: Status: Acute Code(s): M54.16 - Radiculopathy, lumbar region (3) Hip pain, left: Status: Acute Code(s): M25.552 - Pain in left hip Plan 11/05/21: Continue current plan. Support in transition 11/06/2021: Continue current regimen and plans. No changes were made today I spent minutes with the patient and/or on the patient floor today, greater than?50% of which was spent counseling/coordinating care. Reason for contiued inpatient stay Substantial Risk for: other
[2021-11-06] MEDS: polyethylene glycoL 3350 17 GM POWD.PACK PO (14:52)
[2021-11-06 18:00] VITALS: BP 119/59; PULSE 87; RESP 18; TEMP 37.3; O2SAT 97
[2021-11-06] MEDS: rOPINIRole HCL 1 MG TABLET 2 MG PO (18:55)
[2021-11-06] MEDS: traZODone HCL 50 MG TABLET PO (20:10)
[2021-11-06] MEDS: hydrOXYzine HCL 25 MG TABLET PO (20:10)
[2021-11-06] MEDS: Melatonin 3 MG TABLET 9 MG PO (20:11)
[2021-11-06] MEDS: QUEtiapine Fumarate 300 MG TABLET 600 MG PO (20:11)
[2021-11-06] MEDS: Calcium Carbonate 750 MG TAB.CHEW PO (20:15)
[2021-11-07] MEDS: Omeprazole 20 MG CAPSULE.DR PO ×2 (06:20→17:00)
[2021-11-07 08:53] VITALS: BP 122/76; PULSE 79; RESP 16
--- NOTE | 2021-11-07 09:04 | P.PNPSI_ITS ---
Subjective Subjective Date of Service: 11/07/21 Reason For Visit: Bipolar, Schizoaffective Subjective Notes: Conditional Voluntary Interim History: Patient was seen and discussed in rounds today.? She has been isolative a mostly in her room. She is anxious about her discharge. She is eating and sleeping adequately. She is med compliant with no complaints or side effects. She does have some flight of ideas. Possible discharge this coming week. No changes w ere made Review of Systems Review of Systems Anxiety/depression Yes all other systems are reviewed and are negative Diagnostics Vital Signs (24Hr): Vital Signs - 24 hr 11/06/21 18:00 11/07/21 08:53 Temperature 99.2 F Pulse Rate 87 79 Respiratory Rate 18 16 Blood Pressure 119/59 L 122/76 Pulse Oximetry 97 BMI result Body Mass Index 32.8 Labs Results: 10/29/21 07:54 10/29/21 07:54 Imaging Radiology Impressions: ITS Impressions Abdomen Ultrasound 09/01/21 08:59 IMPRESSION: Slightly echogenic liver. Limited evaluation of the gallbladder as the patient has recently eaten. No gallstone seen. Limited visualization of the pancreas. Hip X-Ray 09/16/21 14:47 IMPRESSION: Moderate to severe left hip arthritis. Medications Medications Current Medications Acetaminophen (Acetaminophen 325 Mg Tablet) 975 mg PO Q6H PRN PRN Reason: Headache/Pain Mild Scale (1-3) Last Admin: 10/30/21 09:24 Dose: 975 mg Documented by: Al Hydroxide/Mg Hydroxide (Magnesium Hydrox/Alum Hydrox 30 Ml Oral.Susp) 30 ml PO Q6H PRN PRN Reason: Heartburn/Nausea Last Admin: 08/22/21 05:54 Dose: 30 ml Documented by: Amlodipine Besylate (Amlodipine Besylate 2.5 Mg Tablet) 2.5 mg PO DAILY [facility]; Protocol Last Admin: 11/06/21 09:22 Dose: 2.5 mg Documented by: Artificial Tears (Artificial Tears 15 Ml Drops) 2 drop EYE-BOTH Q4H PRN PRN Reason: Dry Eyes Last Admin: 10/24/21 08:47 Dose: 2 drop Documented by: Aspirin (Aspirin Enteric Coated 325 Mg Tablet.) 650 mg PO DAILY PRN PRN Reason: headache Last Admin: 09/06/21 12:18 Dose: 650 mg Documented by: Benzocaine (Benzocaine 20 % Oral Gel 9 Gm Tube) 1 appl MUCOUS MEM QID PRN; Protocol PRN Reason: Mouth Sore Pain Last Admin: 08/31/21 03:05 Dose: 1 appl Documented by: Calcium Carbonate (Calcium Carbonate 500 Mg Tablet) 500 mg PO DAILY [facility] Last Admin: 11/06/21 09:23 Dose: 500 mg Documented by: Calcium Carbonate (Calcium Carbonate 750 Mg Tab.Chew) 750 mg PO Q4H PRN PRN Reason: Heartburn Last Admin: 11/06/21 20:15 Dose: 750 mg Documented by: Clotrimazole (Clotrimazole 1 % Cream 15 Gm Tube) 1 appl TOPICAL BID [facility]; Protocol Last Admin: 11/06/21 22:04 Dose: Not Given Documented by: [place] Butter/Zinc Oxide ([place] Butter/Zinc Oxide Supp.Rect) 1 supp [place] BEDTIME PRN PRN Reason: hemorrhoid pain Last Admin: 09/13/21 21:15 Dose: 1 supp Documented by: Cyanocobalamin (Cyanocobalamin (Vitamin B-12) 100 Mcg Tablet) 100 mcg PO DAILY [facility] Last Admin: 11/06/21 09:23 Dose: 100 mcg Documented by: Diclofenac Sodium (Diclofenac Sodium Delayed Rel 50 Mg Tablet.) 50 mg PO TID [facility] Last Admin: 11/06/21 20:10 Dose: 50 mg Documented by: Diphenhydramine HCl (Diphenhydramine Hcl 25 Mg Tablet) 50 mg PO Q6H PRN PRN Reason: eps Last Admin: 09/22/21 23:48 Dose: 50 mg Documented by: Docusate Sodium (Docusate Sodium 100 Mg Capsule) 100 mg PO BID [facility] Last Admin: 11/06/21 20:11 Dose: 100 mg Documented by: Duloxetine HCl (Duloxetine Hcl 30 Mg Capsule.) 30 mg PO DAILY [facility] Last Admin: 11/06/21 09:21 Dose: 30 mg Documented by: Gabapentin (Gabapentin 400 Mg Capsule) 800 mg PO TID [facility] Last Admin: 11/06/21 20:11 Dose: 800 mg Documented by: Gabapentin (Gabapentin 100 Mg Capsule) 100 mg PO TID PRN PRN Reason: neuropathic pain Last Admin: 09/26/21 17:14 Dose: 100 mg Documented by: Hydroxyzine HCl (Hydroxyzine Hcl 25 Mg Tablet) 25 mg PO BEDTIME PRN PRN Reason: Anxiety Last Admin: 09/22/21 23:48 Dose: 25 mg Documented by: Hydroxyzine HCl (Hydroxyzine Hcl 25 Mg Tablet) 25 mg PO BEDTIME [facility] Last Admin: 11/06/21 20:10 Dose: 25 mg Documented by: Lidocaine (Lidocaine 4 % Patch Adh..Patch) 1 patch TRANSDERMA DAILY [facility]; Protocol Last Admin: 11/06/21 10:02 Dose: Not Given Documented by: [place] Carbonate ([place] Carbonate 300 Mg Tablet) 300 mg PO BID [facility] Last Admin: 11/06/21 20:10 Dose: 300 mg Documented by: Magnesium Citrate (Magnesium Citrate 300 Ml Solution) 300 ml PO DAILY PRN PRN Reason: Constipation Last Admin: 11/05/21 17:48 Dose: 300 ml Documented by: Magnesium Hydroxide (Milk Of Magnesia 30 Ml Oral.Susp) 30 ml PO DAILY PRN PRN Reason: Constipation Last Admin: 08/31/21 20:05 Dose: 30 ml Documented by: Melatonin (Melatonin 3 Mg Tablet) 9 mg PO BEDTIME [facility] Last Admin: 11/06/21 20:11 Dose: 9 mg Documented by: Multi-Ingred Cream/Lotion/Oil/Oint (Mineral Oil/Petrolatum,White 106 Gm Tube) 1 appl TOPICAL BID [facility]; Protocol Last Admin: 11/06/21 22:04 Dose: Not Given Documented by: Multivitamins/Vitamin C (Multivitamin Tablet) 1 tab PO DAILY [facility] Last Admin: 11/06/21 09:23 Dose: 1 tab Documented by: Nicotine (Nicotine 14 Mg Patch.Td24) 14 mg TRANSDERMA DAILY [facility] Last Admin: 11/06/21 09:24 Dose: 14 mg Documented by: Nicotine Polacrilex (Nicotine Polacrilex 2 Mg Gum) 4 mg BUCCAL Q1H PRN PRN Reason: Nicotine Cravings Last Admin: 11/06/21 20:15 Dose: 4 mg Documented by: Patient Own Medication (Dry Eye Relief) 1 each EYE-BOTH QID [facility] Last Admin: 11/06/21 22:04 Dose: Not Given Documented by: Omeprazole (Omeprazole 20 Mg Capsule.) 20 mg PO BID@0630,1630 [facility] Last Admin: 11/07/21 06:20 Dose: 20 mg Documented by: Polyethylene Glycol (Polyethylene Glycol 3350 17 Gm Powd.Pack) 17 gm PO DAILY PRN PRN Reason: Constipation Last Admin: 11/06/21 14:52 Dose: 17 gm Documented by: Psyllium Hydrophilic Mucilloid (Psyllium Seed 3.4 Gm Powd.Pack) 3.4 gm PO DAILY [facility] Last Admin: 11/06/21 09:23 Dose: 3.4 gm Documented by: Quetiapine Fumarate (Quetiapine Fumarate 200 Mg Tablet) 200 mg PO Q6H PRN PRN Reason: anxiety/restlessness Last Admin: 09/21/21 02:38 Dose: 200 mg Documented by: Quetiapine Fumarate (Quetiapine Fumarate 100 Mg Tablet) 100 mg PO DAILY [facility] Last Admin: 11/06/21 09:23 Dose: 100 mg Documented by: Quetiapine Fumarate (Quetiapine Fumarate 300 Mg Tablet) 600 mg PO BEDTIME [facility] Last Admin: 11/06/21 20:11 Dose: 600 mg Documented by: Ropinirole HCl (Ropinirole Hcl 0.5 Mg Tablet) 0.5 mg PO 0800 [facility] Last Admin: 11/06/21 09:21 Dose: 0.5 mg Documented by: Ropinirole HCl (Ropinirole Hcl 1 Mg Tablet) 2 mg PO DAILY@1900 [facility] Last Admin: 11/06/21 18:55 Dose: 2 mg Documented by: Senna/Docusate Sodium (Sennosides/Docusate Sodium Tablet) 1 tab PO BID [facility] Last Admin: 11/06/21 20:11 Dose: 1 tab Documented by: Simethicone (Simethicone 80 Mg Tab.Chew) 80 mg PO QIDWMHS PRN PRN Reason: indigestion Last Admin: 11/05/21 17:25 Dose: 80 mg Documented by: Sodium Chloride (Sodium Chloride 0.65 % Nasal 44 Ml Sprbtl) 1 spray NOSTRIL-B Q1H PRN PRN Reason: congestion Last Admin: 11/06/21 09:24 Dose: 1 spray Documented by: Trazodone HCl (Trazodone Hcl 50 Mg Tablet) 50 mg PO BEDTIME PRN PRN Reason: insomnia Last Admin: 11/06/21 20:10 Dose: 50 mg Documented by: Trolamine Salicylate/Aloe Vera (Trolamine Salicylate 10%/Aloe Cream 35.4 Gm) 1 appl TOPICAL TID PRN PRN Reason: sciatica Last Admin: 09/03/21 05:27 Dose: 1 appl Documented by: Vitamin D (Cholecalciferol (Vitamin D3) 10 Mcg Tablet) 10 mcg PO DAILY [facility] Last Admin: 11/06/21 09:21 Dose: 10 mcg Documented by: Allergies Allergies Allergy/AdvReac Type Severity Reaction Status Date / Time aripiprazole [From Abilify] Allergy Unknown Involuntary Verified 08/19/21 07:20 Spasms chlorpromazine Allergy Unknown Nausea and Verified 08/19/21 07:20 [From Thorazine] Vomiting haloperidol [From Haldol] Allergy Unknown Involuntary Verified 08/19/21 07:20 Spasms olanzapine [From Zyprexa] Allergy Unknown Involuntary Verified 08/19/21 07:20 Spasms paliperidone [From Invega] Allergy Unknown Hallucinati Verified 08/19/21 07:20 ons risperidone Allergy Unknown Involuntary Verified 08/19/21 07:20 Spasms Assessment & Plan Assessment & Plan (1) Schizoaffective disorder, bipolar type: Status: Acute Code(s): F25.0 - Schizoaffective disorder, bipolar type (2) Lumbar radiculopathy: Status: Acute Code(s): M54.16 - Radiculopathy, lumbar region (3) Hip pain, left: Status: Acute Code(s): M25.552 - Pain in left hip Plan 11/05/21: Continue current plan. Support in transition 11/06/2021: Continue current regimen and plans. No changes were made today 11/07/2021: Continue current plans and regimen. No changes were made today I spent minutes with the patient and/or on the patient floor today, greater than?50% of which was spent counseling/coordinating care. Reason for contiued inpatient stay Substantial Risk for: med/psych decompensation
[2021-11-07] MEDS: Sennosides/Docusate Sodium TABLET 1 TAB PO ×2 (09:30→22:09)
[2021-11-07] MEDS: Cyanocobalamin (Vitamin B-12) 100 MCG TABLET PO (09:30)
[2021-11-07] MEDS: Docusate Sodium 100 MG CAPSULE PO ×2 (09:30→22:07)
[2021-11-07] MEDS: Cholecalciferol (Vitamin D3) 10 MCG TABLET PO (09:30)
[2021-11-07] MEDS: DULoxetine HCl 30 MG CAPSULE.DR PO (09:30)
[2021-11-07] MEDS: Gabapentin 400 MG CAPSULE 800 MG PO ×3 (09:30→22:08)
[2021-11-07] MEDS: Lithium Carbonate 300 MG TABLET PO ×2 (09:31→22:08)
[2021-11-07] MEDS: QUEtiapine Fumarate 100 MG TABLET PO (09:31)
[2021-11-07] MEDS: Multivitamin TABLET 1 TAB PO (09:31)
[2021-11-07] MEDS: rOPINIRole HCL 0.5 MG TABLET PO (09:31)
[2021-11-07] MEDS: Diclofenac Sodium Delayed Rel 50 MG TABLET.DR PO ×3 (09:31→19:37)
[2021-11-07] MEDS: Nicotine Polacrilex 2 MG GUM 4 MG BUCCAL ×3 (09:32→19:45)
[2021-11-07] MEDS: Mineral Oil/Petrolatum,White 106 GM Tube 1 APPL TOPICAL ×2 (09:32→22:32)
[2021-11-07] MEDS: polyethylene glycoL 3350 17 GM POWD.PACK PO (09:32)
[2021-11-07] MEDS: Sodium Chloride 0.65 % Nasal 44 ML SPRBTL 1 SPRAY NOSTRIL-B (09:32)
[2021-11-07] MEDS: Nicotine 14 MG PATCH.TD24 TRANSDERMA (09:33)
[2021-11-07] MEDS: amLODIPine Besylate 2.5 MG TABLET PO (10:15)
[2021-11-07] MEDS: LORazepam 1 MG TABLET PO ×2 (17:06→22:16)
[2021-11-07] MEDS: Acetaminophen 325 MG TABLET 975 MG PO (17:06)
[2021-11-07 19:30] VITALS: BP 109/55; PULSE 74; TEMP 36.7
[2021-11-07] MEDS: rOPINIRole HCL 1 MG TABLET 2 MG PO (19:37)
[2021-11-07] MEDS: Melatonin 3 MG TABLET 9 MG PO (22:07)
[2021-11-07] MEDS: traZODone HCL 50 MG TABLET PO (22:07)
[2021-11-07] MEDS: QUEtiapine Fumarate 300 MG TABLET 600 MG PO (22:08)
[2021-11-07] MEDS: hydrOXYzine HCL 25 MG TABLET PO (22:09)
[2021-11-08 06:00] VITALS: BP 117/71; PULSE 81; TEMP 36.6; O2SAT 97
[2021-11-08] MEDS: Omeprazole 20 MG CAPSULE.DR PO ×2 (06:41→17:07)
[2021-11-08] MEDS: Nicotine 14 MG PATCH.TD24 TRANSDERMA (09:58)
[2021-11-08] MEDS: Clotrimazole 1 % Cream 15 GM TUBE 1 APPL TOPICAL (09:58)
[2021-11-08] MEDS: Mineral Oil/Petrolatum,White 106 GM Tube 1 APPL TOPICAL (09:58)
[2021-11-08] MEDS: Gabapentin 400 MG CAPSULE 800 MG PO ×3 (10:00→20:50)
[2021-11-08] MEDS: Cholecalciferol (Vitamin D3) 10 MCG TABLET PO (10:00)
[2021-11-08] MEDS: DULoxetine HCl 30 MG CAPSULE.DR PO (10:00)
[2021-11-08] MEDS: Multivitamin TABLET 1 TAB PO (10:00)
[2021-11-08] MEDS: Docusate Sodium 100 MG CAPSULE PO ×2 (10:00→20:51)
[2021-11-08] MEDS: Diclofenac Sodium Delayed Rel 50 MG TABLET.DR PO ×3 (10:00→20:52)
[2021-11-08] MEDS: Cyanocobalamin (Vitamin B-12) 100 MCG TABLET PO (10:01)
[2021-11-08] MEDS: QUEtiapine Fumarate 100 MG TABLET PO (10:01)
[2021-11-08] MEDS: rOPINIRole HCL 0.5 MG TABLET PO (10:01)
[2021-11-08] MEDS: amLODIPine Besylate 2.5 MG TABLET PO (10:01)
[2021-11-08] MEDS: Sennosides/Docusate Sodium TABLET 1 TAB PO ×2 (10:01→20:51)
[2021-11-08] MEDS: Lithium Carbonate 300 MG TABLET PO ×2 (10:01→20:52)
[2021-11-08] MEDS: polyethylene glycoL 3350 17 GM POWD.PACK PO (10:32)
[2021-11-08] MEDS: Nicotine Polacrilex 2 MG GUM 4 MG BUCCAL ×3 (10:32→21:00)
--- NOTE | 2021-11-08 11:03 | HO.PSYCHPN ---
Subjective Subjective Date of Service: 11/08/21 Reason For Visit: Bipolar, Schizoaffective Subjective Notes: Conditional Voluntary Medical Problems Affecting Mental Status: No Interim History: Discussion of feeling a.m. sedation. Discussed consolidation of Seroquel to HS, eliminating AM dosing. Pt looking for discharge this week, [facility] [place], possibly to [facility]. Discussed her thoughts on both. Reports she is able to sleep, eat. Discussed medication SE and will consolidate Seroquel Medication Compliance: Yes Side effects from medications: No Attending Groups: No Review of Systems Acute medical concerns: No Medical Review of Systems: unchanged Review of Systems Reports behavioral changes Psychiatric: Reports anxiety, Reports behavioral changes and Reports anhedonia Mental Status Exam Mental Status Exam Patient Appearance: Disheveled Patient Orientation: Person, Place, Time and Situation Level of Consciousness: Alert Patient Behavior: Talkative and Good Eye Contact Mood Description: Withdrawn Affect Description: Flat Patient Cognition Impaired: No Ability to Follow Directions: Good Speech Pattern: Spontaneous Speech Memory Description: Intact Hallucinations: Auditory (intermittent at baseline) Delusions: Paranoid Ideation (intermittent at baseline) Thought Process: Intact and Goal Oriented Thought Content: positive for Goal Oriented Depressive Symptoms: Increased Anxiety (regarding new living situation and leaving hospital care) Judgement: Good Diagnostics Vital Signs (24Hr): Vital Signs - 24 hr 11/07/21 19:30 11/08/21 06:00 Temperature 98.1 F 97.8 F Pulse Rate 74 81 Blood Pressure 109/55 L 117/71 Pulse Oximetry 97 BMI result Body Mass Index 32.8 Labs Results: 10/29/21 07:54 10/29/21 07:54 Imaging Radiology Impressions: ITS Impressions Abdomen Ultrasound 09/01/21 08:59 IMPRESSION: Slightly echogenic liver. Limited evaluation of the gallbladder as the patient has recently eaten. No gallstone seen. Limited visualization of the pancreas. Hip X-Ray 09/16/21 14:47 IMPRESSION: Moderate to severe left hip arthritis. Medications Medications Current Medications Acetaminophen (Acetaminophen 325 Mg Tablet) 975 mg PO Q6H PRN PRN Reason: Headache/Pain Mild Scale (1-3) Last Admin: 11/07/21 17:06 Dose: 975 mg Documented by: Al Hydroxide/Mg Hydroxide (Magnesium Hydrox/Alum Hydrox 30 Ml Oral.Susp) 30 ml PO Q6H PRN PRN Reason: Heartburn/Nausea Last Admin: 08/22/21 05:54 Dose: 30 ml Documented by: Amlodipine Besylate (Amlodipine Besylate 2.5 Mg Tablet) 2.5 mg PO DAILY REPLACED BY [facility]; Protocol Last Admin: 11/08/21 10:01 Dose: 2.5 mg Documented by: Artificial Tears (Artificial Tears 15 Ml Drops) 2 drop EYE-BOTH Q4H PRN PRN Reason: Dry Eyes Last Admin: 10/24/21 08:47 Dose: 2 drop Documented by: Aspirin (Aspirin Enteric Coated 325 Mg Tablet.) 650 mg PO DAILY PRN PRN Reason: headache Last Admin: 09/06/21 12:18 Dose: 650 mg Documented by: Benzocaine (Benzocaine 20 % Oral Gel 9 Gm Tube) 1 appl MUCOUS MEM QID PRN; Protocol PRN Reason: Mouth Sore Pain Last Admin: 08/31/21 03:05 Dose: 1 appl Documented by: Calcium Carbonate (Calcium Carbonate 500 Mg Tablet) 500 mg PO DAILY REPLACED BY [facility] Last Admin: 11/08/21 10:01 Dose: 500 mg Documented by: Calcium Carbonate (Calcium Carbonate 750 Mg Tab.Chew) 750 mg PO Q4H PRN PRN Reason: Heartburn Last Admin: 11/06/21 20:15 Dose: 750 mg Documented by: Clotrimazole (Clotrimazole 1 % Cream 15 Gm Tube) 1 appl TOPICAL BID [facility]; Protocol Last Admin: 11/08/21 09:58 Dose: 1 appl Documented by: [place] Butter/Zinc Oxide ([place] Butter/Zinc Oxide Supp.Rect) 1 supp [place] BEDTIME PRN PRN Reason: hemorrhoid pain Last Admin: 09/13/21 21:15 Dose: 1 supp Documented by: Cyanocobalamin (Cyanocobalamin (Vitamin B-12) 100 Mcg Tablet) 100 mcg PO DAILY REPLACED BY [facility] Last Admin: 11/08/21 10:01 Dose: 100 mcg Documented by: Diclofenac Sodium (Diclofenac Sodium Delayed Rel 50 Mg Tablet.) 50 mg PO TID REPLACED BY [facility] Last Admin: 11/08/21 10:00 Dose: 50 mg Documented by: Diphenhydramine HCl (Diphenhydramine Hcl 25 Mg Tablet) 50 mg PO Q6H PRN PRN Reason: eps Last Admin: 09/22/21 23:48 Dose: 50 mg Documented by: Docusate Sodium (Docusate Sodium 100 Mg Capsule) 100 mg PO BID REPLACED BY [facility] Last Admin: 11/08/21 10:00 Dose: 100 mg Documented by: Duloxetine HCl (Duloxetine Hcl 30 Mg Capsule.Dr) 30 mg PO DAILY REPLACED BY [facility] Last Admin: 11/08/21 10:00 Dose: 30 mg Documented by: Gabapentin (Gabapentin 400 Mg Capsule) 800 mg PO TID REPLACED BY [facility] Last Admin: 11/08/21 10:00 Dose: 800 mg Documented by: Gabapentin (Gabapentin 100 Mg Capsule) 100 mg PO TID PRN PRN Reason: neuropathic pain Last Admin: 09/26/21 17:14 Dose: 100 mg Documented by: Hydroxyzine HCl (Hydroxyzine Hcl 25 Mg Tablet) 25 mg PO BEDTIME PRN PRN Reason: Anxiety Last Admin: 09/22/21 23:48 Dose: 25 mg Documented by: Hydroxyzine HCl (Hydroxyzine Hcl 25 Mg Tablet) 25 mg PO BEDTIME REPLACED BY [facility] Last Admin: 11/07/21 22:09 Dose: 25 mg Documented by: Lidocaine (Lidocaine 4 % Patch Adh..Patch) 1 patch TRANSDERMA DAILY REPLACED BY [facility]; Protocol Last Admin: 11/08/21 10:06 Dose: Not Given Documented by: [place] Carbonate ([place] Carbonate 300 Mg Tablet) 300 mg PO BID REPLACED BY [facility] Last Admin: 11/08/21 10:01 Dose: 300 mg Documented by: Lorazepam (Lorazepam 1 Mg Tablet) 1 mg PO BID PRN PRN Reason: Anxiety Last Admin: 11/07/21 22:16 Dose: 1 mg Documented by: Magnesium Citrate (Magnesium Citrate 300 Ml Solution) 300 ml PO DAILY PRN PRN Reason: Constipation Last Admin: 11/05/21 17:48 Dose: 300 ml Documented by: Magnesium Hydroxide (Milk Of Magnesia 30 Ml Oral.Susp) 30 ml PO DAILY PRN PRN Reason: Constipation Last Admin: 08/31/21 20:05 Dose: 30 ml Documented by: Melatonin (Melatonin 3 Mg Tablet) 9 mg PO BEDTIME REPLACED BY [facility] Last Admin: 11/07/21 22:07 Dose: 9 mg Documented by: Multi-Ingred Cream/Lotion/Oil/Oint (Mineral Oil/Petrolatum,White 106 Gm Tube) 1 appl TOPICAL BID REPLACED BY [facility]; Protocol Last Admin: 11/08/21 09:58 Dose: 1 appl Documented by: Multivitamins/Vitamin C (Multivitamin Tablet) 1 tab PO DAILY REPLACED BY [facility] Last Admin: 11/08/21 10:00 Dose: 1 tab Documented by: Nicotine (Nicotine 14 Mg Patch.Td24) 14 mg TRANSDERMA DAILY REPLACED BY [facility] Last Admin: 11/08/21 09:58 Dose: 14 mg Documented by: Nicotine Polacrilex (Nicotine Polacrilex 2 Mg Gum) 4 mg BUCCAL Q1H PRN PRN Reason: Nicotine Cravings Last Admin: 11/08/21 10:32 Dose: 4 mg Documented by: Patient Own Medication (Dry Eye Relief) 1 each EYE-BOTH QID REPLACED BY [facility] Last Admin: 11/08/21 09:57 Dose: 1 each Documented by: Omeprazole (Omeprazole 20 Mg Capsule.Dr) 20 mg PO BID@0630,1630 REPLACED BY [facility] Last Admin: 11/08/21 06:41 Dose: 20 mg Documented by: Polyethylene Glycol (Polyethylene Glycol 3350 17 Gm Powd.Pack) 17 gm PO DAILY PRN PRN Reason: Constipation Last Admin: 11/08/21 10:32 Dose: 17 gm Documented by: Psyllium Hydrophilic Mucilloid (Psyllium Seed 3.4 Gm Powd.Pack) 3.4 gm PO DAILY REPLACED BY [facility] Last Admin: 11/08/21 09:57 Dose: 3.4 gm Documented by: Quetiapine Fumarate (Quetiapine Fumarate 200 Mg Tablet) 200 mg PO Q6H PRN PRN Reason: anxiety/restlessness Last Admin: 09/21/21 02:38 Dose: 200 mg Documented by: Quetiapine Fumarate (Quetiapine Fumarate 100 Mg Tablet) 100 mg PO DAILY REPLACED BY [facility] Last Admin: 11/08/21 10:01 Dose: 100 mg Documented by: Quetiapine Fumarate (Quetiapine Fumarate 300 Mg Tablet) 600 mg PO BEDTIME REPLACED BY [facility] Last Admin: 11/07/21 22:08 Dose: 600 mg Documented by: Ropinirole HCl (Ropinirole Hcl 0.5 Mg Tablet) 0.5 mg PO 0800 REPLACED BY [facility] Last Admin: 11/08/21 10:01 Dose: 0.5 mg Documented by: Ropinirole HCl (Ropinirole Hcl 1 Mg Tablet) 2 mg PO DAILY@1900 REPLACED BY [facility] Last Admin: 11/07/21 19:37 Dose: 2 mg Documented by: Senna/Docusate Sodium (Sennosides/Docusate Sodium Tablet) 1 tab PO BID REPLACED BY [facility] Last Admin: 11/08/21 10:01 Dose: 1 tab Documented by: Simethicone (Simethicone 80 Mg Tab.Chew) 80 mg PO QIDWMHS PRN PRN Reason: indigestion Last Admin: 11/05/21 17:25 Dose: 80 mg Documented by: Sodium Chloride (Sodium Chloride 0.65 % Nasal 44 Ml Sprbtl) 1 spray NOSTRIL-B Q1H PRN PRN Reason: congestion Last Admin: 11/07/21 09:32 Dose: 1 spray Documented by: Trazodone HCl (Trazodone Hcl 50 Mg Tablet) 50 mg PO BEDTIME PRN PRN Reason: insomnia Last Admin: 11/07/21 22:07 Dose: 50 mg Documented by: Trolamine Salicylate/Aloe Vera (Trolamine Salicylate 10%/Aloe Cream 35.4 Gm) 1 appl TOPICAL TID PRN PRN Reason: sciatica Last Admin: 09/03/21 05:27 Dose: 1 appl Documented by: Vitamin D (Cholecalciferol (Vitamin D3) 10 Mcg Tablet) 10 mcg PO DAILY [facility] Last Admin: 11/08/21 10:00 Dose: 10 mcg Documented by: Allergies Allergies Allergy/AdvReac Type Severity Reaction Status Date / Time aripiprazole [From Abilify] Allergy Unknown Involuntary Verified 08/19/21 07:20 Spasms chlorpromazine Allergy Unknown Nausea and Verified 08/19/21 07:20 [From Thorazine] Vomiting haloperidol [From Haldol] Allergy Unknown Involuntary Verified 08/19/21 07:20 Spasms olanzapine [From Zyprexa] Allergy Unknown Involuntary Verified 08/19/21 07:20 Spasms paliperidone [From Invega] Allergy Unknown Hallucinati Verified 08/19/21 07:20 ons risperidone Allergy Unknown Involuntary Verified 08/19/21 07:20 Spasms Assessment & Plan Assessment & Plan (1) Schizoaffective disorder, bipolar type: Status: Acute Code(s): F25.0 - Schizoaffective disorder, bipolar type (2) Lumbar radiculopathy: Status: Acute Code(s): M54.16 - Radiculopathy, lumbar region (3) Hip pain, left: Status: Acute Code(s): M25.552 - Pain in left hip Plan 11/05/21: Continue current plan. Support in transition 11/06/2021: Continue current regimen and plans. No changes were made today 11/07/2021: Continue current plans and regimen. No changes were made today 11/08/21: Discontinue a.m. Seroquel 100 mg Increase p.m. Seroquel to 700 mg from 600 mg, consolidating dosages per pt request to improve mgt of daytime sedation. I spent minutes with the patient and/or on the patient floor today, greater than?50% of which was spent counseling/coordinating care. Patient educated on: medication risk/benefits and therapeutic strategies Informed Consent: understands Reason for contiued inpatient stay Substantial Risk for: inability to function and rapid decompensation
[2021-11-08 18:00] VITALS: BP 115/77; PULSE 74; TEMP 36.2; O2SAT 97
[2021-11-08] MEDS: traZODone HCL 50 MG TABLET PO (18:56)
[2021-11-08] MEDS: rOPINIRole HCL 1 MG TABLET 2 MG PO (18:57)
[2021-11-08] MEDS: Magnesium Citrate 300 ML SOLUTION PO (19:03)
[2021-11-08] MEDS: hydrOXYzine HCL 25 MG TABLET PO (20:51)
[2021-11-08] MEDS: Melatonin 3 MG TABLET 9 MG PO (20:51)
[2021-11-08] MEDS: QUEtiapine Fumarate 100 MG TABLET 700 MG PO (20:52)
[2021-11-08] MEDS: LORazepam 1 MG TABLET PO (21:00)
[2021-11-09] MEDS: Omeprazole 20 MG CAPSULE.DR PO ×2 (06:11→17:08)
[2021-11-09] MEDS: Mineral Oil/Petrolatum,White 106 GM Tube 1 APPL TOPICAL (09:48)
[2021-11-09] MEDS: DULoxetine HCl 30 MG CAPSULE.DR PO (09:49)
[2021-11-09] MEDS: Clotrimazole 1 % Cream 15 GM TUBE 1 APPL TOPICAL (09:49)
[2021-11-09] MEDS: polyethylene glycoL 3350 17 GM POWD.PACK PO (09:49)
[2021-11-09] MEDS: Nicotine 14 MG PATCH.TD24 TRANSDERMA (09:49)
[2021-11-09 09:50] VITALS: BP 118/85; PULSE 81; TEMP 36.6; O2SAT 99
[2021-11-09] MEDS: Lithium Carbonate 300 MG TABLET PO ×2 (09:50→20:21)
[2021-11-09] MEDS: Cholecalciferol (Vitamin D3) 10 MCG TABLET PO (09:50)
[2021-11-09] MEDS: Sennosides/Docusate Sodium TABLET 1 TAB PO ×2 (09:50→20:22)
[2021-11-09] MEDS: rOPINIRole HCL 0.5 MG TABLET PO (09:50)
[2021-11-09] MEDS: Diclofenac Sodium Delayed Rel 50 MG TABLET.DR PO ×3 (09:50→20:23)
[2021-11-09] MEDS: Cyanocobalamin (Vitamin B-12) 100 MCG TABLET PO (09:50)
[2021-11-09] MEDS: Gabapentin 400 MG CAPSULE 800 MG PO ×3 (09:50→20:23)
[2021-11-09] MEDS: amLODIPine Besylate 2.5 MG TABLET PO (09:50)
[2021-11-09] MEDS: Multivitamin TABLET 1 TAB PO (09:50)
[2021-11-09] MEDS: Docusate Sodium 100 MG CAPSULE PO ×2 (09:50→20:23)
[2021-11-09] MEDS: Nicotine Polacrilex 2 MG GUM 4 MG BUCCAL ×3 (09:51→20:22)
[2021-11-09] MEDS: Sodium Chloride 0.65 % Nasal 44 ML SPRBTL 1 SPRAY NOSTRIL-B (10:08)
[2021-11-09 14:33] VITALS: BP 98/61; PULSE 73; TEMP 36.9; O2SAT 97
[2021-11-09 14:40] LABS: COVID-19 Test Negative (Negative); IDNOW Serial# 16C4AD1C
--- NOTE | 2021-11-09 14:44 | PC.NURSE ---
Patient in room complaining of not feeling good . Patient reports a sore throat, weakness, and dizziness when standing. MD notified and ordered a COVID SWAB and throat swab, results pending. VS BP 98/61, P73, 98.4, 97% on RA. Pt ate 100% of both meals without difficulty and denies dyspepsia. Pt has been complaining of constipation, but is having small hard stools daily per her report.
--- NOTE | 2021-11-09 16:56 | HO.PSYCHPN ---
Subjective Subjective Date of Service: 11/09/21 Reason For Visit: Bipolar, Schizoaffective Interim History: Blanca reports sore throat. She is worried she has covid. We will obtain a throat culture and COVID testing. We will add throat lozenges prn. ADL's are poor today-encouraged to shower and wash her hair. She reports struggling with impending discharge. Reports medications are intact. Asks about an increase in antidepressant and or stimulant-reviewed how this may increase risk of mood destabilization. Medication Compliance: Yes Side effects from medications: No Attending Groups: No Review of Systems Acute medical concerns: No Medical Review of Systems: unchanged Review of Systems Psychiatric: Reports anxiety Mental Status Exam Mental Status Exam Patient Appearance: Disheveled Patient Orientation: Person, Place, Time and Situation Level of Consciousness: Alert Patient Behavior: Talkative and Good Eye Contact Mood Description: Withdrawn Affect Description: Flat Patient Cognition Impaired: No Ability to Follow Directions: Good Speech Pattern: Spontaneous Speech Memory Description: Intact Hallucinations: Auditory (intermittent at baseline) Delusions: Paranoid Ideation (intermittent at baseline) Thought Process: Intact and Goal Oriented Thought Content: positive for Goal Oriented Depressive Symptoms: Increased Anxiety (regarding new living situation and leaving hospital care) Judgement: Good Diagnostics Vital Signs (24Hr): Vital Signs - 24 hr 11/08/21 18:00 11/09/21 09:50 11/09/21 14:33 Temperature 97.1 F 97.8 F 98.4 F Pulse Rate 74 81 73 Blood Pressure 115/77 118/85 98/61 Pulse Oximetry 97 99 97 BMI result Body Mass Index 32.8 Labs Results: 10/29/21 07:54 10/29/21 07:54 Labs: Laboratory Results - last 48 hr 11/09/21 14:07 COVID-19 ([facility]) Negative COVID-19 Clin Com See Note Imaging Radiology Impressions: ITS Impressions Abdomen Ultrasound 09/01/21 08:59 IMPRESSION: Slightly echogenic liver. Limited evaluation of the gallbladder as the patient has recently eaten. No gallstone seen. Limited visualization of the pancreas. Hip X-Ray 09/16/21 14:47 IMPRESSION: Moderate to severe left hip arthritis. Medications Medications Current Medications Acetaminophen (Acetaminophen 325 Mg Tablet) 975 mg PO Q6H PRN PRN Reason: Headache/Pain Mild Scale (1-3) Last Admin: 11/07/21 17:06 Dose: 975 mg Documented by: Al Hydroxide/Mg Hydroxide (Magnesium Hydrox/Alum Hydrox 30 Ml Oral.Susp) 30 ml PO Q6H PRN PRN Reason: Heartburn/Nausea Last Admin: 08/22/21 05:54 Dose: 30 ml Documented by: Amlodipine Besylate (Amlodipine Besylate 2.5 Mg Tablet) 2.5 mg PO DAILY [facility]; Protocol Last Admin: 11/09/21 09:50 Dose: 2.5 mg Documented by: Artificial Tears (Artificial Tears 15 Ml Drops) 2 drop EYE-BOTH Q4H PRN PRN Reason: Dry Eyes Last Admin: 10/24/21 08:47 Dose: 2 drop Documented by: Aspirin (Aspirin Enteric Coated 325 Mg Tablet.) 650 mg PO DAILY PRN PRN Reason: headache Last Admin: 09/06/21 12:18 Dose: 650 mg Documented by: Benzocaine (Benzocaine 20 % Oral Gel 9 Gm Tube) 1 appl MUCOUS MEM QID PRN; Protocol PRN Reason: Mouth Sore Pain Last Admin: 08/31/21 03:05 Dose: 1 appl Documented by: Benzocaine (Throat Lozenge, Medicated Lozenge) 1 lozenge MUCOUS MEM Q2H PRN PRN Reason: Sore Throat Calcium Carbonate (Calcium Carbonate 500 Mg Tablet) 500 mg PO DAILY [facility] Last Admin: 11/09/21 09:49 Dose: 500 mg Documented by: Calcium Carbonate (Calcium Carbonate 750 Mg Tab.Chew) 750 mg PO Q4H PRN PRN Reason: Heartburn Last Admin: 11/06/21 20:15 Dose: 750 mg Documented by: Clotrimazole (Clotrimazole 1 % Cream 15 Gm Tube) 1 appl TOPICAL BID [facility]; Protocol Last Admin: 11/09/21 09:49 Dose: 1 appl Documented by: [place] Butter/Zinc Oxide ([place] Butter/Zinc Oxide Supp.Rect) 1 supp [place] BEDTIME PRN PRN Reason: hemorrhoid pain Last Admin: 09/13/21 21:15 Dose: 1 supp Documented by: Cyanocobalamin (Cyanocobalamin (Vitamin B-12) 100 Mcg Tablet) 100 mcg PO DAILY [facility] Last Admin: 11/09/21 09:50 Dose: 100 mcg Documented by: Diclofenac Sodium (Diclofenac Sodium Delayed Rel 50 Mg Tablet.) 50 mg PO TID [facility] Last Admin: 11/09/21 14:23 Dose: 50 mg Documented by: Diphenhydramine HCl (Diphenhydramine Hcl 25 Mg Tablet) 50 mg PO Q6H PRN PRN Reason: eps Last Admin: 09/22/21 23:48 Dose: 50 mg Documented by: Docusate Sodium (Docusate Sodium 100 Mg Capsule) 100 mg PO BID [facility] Last Admin: 11/09/21 09:50 Dose: 100 mg Documented by: Duloxetine HCl (Duloxetine Hcl 30 Mg Capsule.) 30 mg PO DAILY [facility] Last Admin: 11/09/21 09:49 Dose: 30 mg Documented by: Gabapentin (Gabapentin 400 Mg Capsule) 800 mg PO TID [facility] Last Admin: 11/09/21 14:23 Dose: 800 mg Documented by: Gabapentin (Gabapentin 100 Mg Capsule) 100 mg PO TID PRN PRN Reason: neuropathic pain Last Admin: 09/26/21 17:14 Dose: 100 mg Documented by: Hydroxyzine HCl (Hydroxyzine Hcl 25 Mg Tablet) 25 mg PO BEDTIME PRN PRN Reason: Anxiety Last Admin: 09/22/21 23:48 Dose: 25 mg Documented by: Hydroxyzine HCl (Hydroxyzine Hcl 25 Mg Tablet) 25 mg PO BEDTIME [facility] Last Admin: 11/08/21 20:51 Dose: 25 mg Documented by: Lidocaine (Lidocaine 4 % Patch Adh..Patch) 1 patch TRANSDERMA DAILY [facility]; Protocol Last Admin: 11/09/21 09:57 Dose: Not Given Documented by: [place] Carbonate ([place] Carbonate 300 Mg Tablet) 300 mg PO BID [facility] Last Admin: 11/09/21 09:50 Dose: 300 mg Documented by: Lorazepam (Lorazepam 0.5 Mg Tablet) 0.5 mg PO BID PRN PRN Reason: Anxiety Magnesium Citrate (Magnesium Citrate 300 Ml Solution) 300 ml PO DAILY PRN PRN Reason: Constipation Last Admin: 11/08/21 19:03 Dose: 300 ml Documented by: Magnesium Hydroxide (Milk Of Magnesia 30 Ml Oral.Susp) 30 ml PO DAILY PRN PRN Reason: Constipation Last Admin: 08/31/21 20:05 Dose: 30 ml Documented by: Melatonin (Melatonin 3 Mg Tablet) 9 mg PO BEDTIME [facility] Last Admin: 11/08/21 20:51 Dose: 9 mg Documented by: Multi-Ingred Cream/Lotion/Oil/Oint (Mineral Oil/Petrolatum,White 106 Gm Tube) 1 appl TOPICAL BID [facility]; Protocol Last Admin: 11/09/21 09:48 Dose: 1 appl Documented by: Multivitamins/Vitamin C (Multivitamin Tablet) 1 tab PO DAILY [facility] Last Admin: 11/09/21 09:50 Dose: 1 tab Documented by: Nicotine (Nicotine 14 Mg Patch.Td24) 14 mg TRANSDERMA DAILY [facility] Last Admin: 11/09/21 09:49 Dose: 14 mg Documented by: Nicotine Polacrilex (Nicotine Polacrilex 2 Mg Gum) 4 mg BUCCAL Q1H PRN PRN Reason: Nicotine Cravings Last Admin: 11/09/21 09:51 Dose: 4 mg Documented by: Patient Own Medication (Dry Eye Relief) 1 each EYE-BOTH QID [facility] Last Admin: 11/09/21 13:14 Dose: Not Given Documented by: Omeprazole (Omeprazole 20 Mg Capsule.Dr) 20 mg PO BID@0630,1630 [facility] Last Admin: 11/09/21 06:11 Dose: 20 mg Documented by: Polyethylene Glycol (Polyethylene Glycol 3350 17 Gm Powd.Pack) 17 gm PO DAILY PRN PRN Reason: Constipation Last Admin: 11/09/21 09:49 Dose: 17 gm Documented by: Psyllium Hydrophilic Mucilloid (Psyllium Seed 3.4 Gm Powd.Pack) 3.4 gm PO DAILY [facility] Last Admin: 11/09/21 09:49 Dose: 3.4 gm Documented by: Quetiapine Fumarate (Quetiapine Fumarate 200 Mg Tablet) 200 mg PO Q6H PRN PRN Reason: anxiety/restlessness Last Admin: 09/21/21 02:38 Dose: 200 mg Documented by: Quetiapine Fumarate (Quetiapine Fumarate 100 Mg Tablet) 700 mg PO BEDTIME [facility] Last Admin: 11/08/21 20:52 Dose: 700 mg Documented by: Ropinirole HCl (Ropinirole Hcl 0.5 Mg Tablet) 0.5 mg PO 0800 [facility] Last Admin: 11/09/21 09:50 Dose: 0.5 mg Documented by: Ropinirole HCl (Ropinirole Hcl 1 Mg Tablet) 2 mg PO DAILY@1900 [facility] Last Admin: 11/08/21 18:57 Dose: 2 mg Documented by: Senna/Docusate Sodium (Sennosides/Docusate Sodium Tablet) 1 tab PO BID [facility] Last Admin: 11/09/21 09:50 Dose: 1 tab Documented by: Simethicone (Simethicone 80 Mg Tab.Chew) 80 mg PO QIDWMHS PRN PRN Reason: indigestion Last Admin: 11/05/21 17:25 Dose: 80 mg Documented by: Sodium Chloride (Sodium Chloride 0.65 % Nasal 44 Ml Sprbtl) 1 spray NOSTRIL-B Q1H PRN PRN Reason: congestion Last Admin: 11/09/21 10:08 Dose: 1 spray Documented by: Trazodone HCl (Trazodone Hcl 50 Mg Tablet) 50 mg PO BEDTIME PRN PRN Reason: insomnia Last Admin: 11/08/21 18:56 Dose: 50 mg Documented by: Trolamine Salicylate/Aloe Vera (Trolamine Salicylate 10%/Aloe Cream 35.4 Gm) 1 appl TOPICAL TID PRN PRN Reason: sciatica Last Admin: 09/03/21 05:27 Dose: 1 appl Documented by: Vitamin D (Cholecalciferol (Vitamin D3) 10 Mcg Tablet) 10 mcg PO DAILY [facility] Last Admin: 11/09/21 09:50 Dose: 10 mcg Documented by: Allergies Allergies Allergy/AdvReac Type Severity Reaction Status Date / Time aripiprazole [From Abilify] Allergy Unknown Involuntary Verified 08/19/21 07:20 Spasms chlorpromazine Allergy Unknown Nausea and Verified 08/19/21 07:20 [From Thorazine] Vomiting haloperidol [From Haldol] Allergy Unknown Involuntary Verified 08/19/21 07:20 Spasms olanzapine [From Zyprexa] Allergy Unknown Involuntary Verified 08/19/21 07:20 Spasms paliperidone [From Invega] Allergy Unknown Hallucinati Verified 08/19/21 07:20 ons risperidone Allergy Unknown Involuntary Verified 08/19/21 07:20 Spasms Assessment & Plan Assessment & Plan (1) Schizoaffective disorder, bipolar type: Status: Acute Code(s): F25.0 - Schizoaffective disorder, bipolar type (2) Lumbar radiculopathy: Status: Acute Code(s): M54.16 - Radiculopathy, lumbar region (3) Hip pain, left: Status: Acute Code(s): M25.552 - Pain in left hip Plan 11/05/21: Continue current plan. Support in transition 11/06/2021: Continue current regimen and plans. No changes were made today 11/07/2021: Continue current plans and regimen. No changes were made today 11/08/21: Discontinue a.m. Seroquel 100 mg Increase p.m. Seroquel to 700 mg from 600 mg, consolidating dosages per pt request to improve mgt of daytime sedation. 11/09/21: No changes today Throat culture, COVID-19 testing, throat lozenges prn I spent minutes with the patient and/or on the patient floor today, greater than?50% of which was spent counseling/coordinating care. Patient educated on: therapeutic strategies and medical condition Informed Consent: understands Reason for contiued inpatient stay Substantial Risk for: inability to function and rapid decompensation
[2021-11-09] MEDS: rOPINIRole HCL 1 MG TABLET 2 MG PO (18:58)
[2021-11-09] MEDS: traZODone HCL 50 MG TABLET PO (19:16)
[2021-11-09] MEDS: hydrOXYzine HCL 25 MG TABLET PO (20:22)
[2021-11-09] MEDS: QUEtiapine Fumarate 100 MG TABLET 700 MG PO (20:22)
[2021-11-09] MEDS: Melatonin 3 MG TABLET 9 MG PO (20:23)
[2021-11-09] MEDS: LORazepam 0.5 MG TABLET PO (20:23)
[2021-11-09 22:00] VITALS: BP 124/72; PULSE 111; TEMP 37.1; O2SAT 98
--- NOTE | 2021-11-10 | ECG_ITS ---
Test Reason : [place] Blood Pressure : / mmHG Vent. Rate : 075 BPM Atrial Rate : 075 BPM P-R Int : 146 ms QRS Dur : 082 ms QT Int : 372 ms P-R-T Axes : 040 001 047 degrees QTc Int : 415 ms Normal sinus rhythm Inferior infarct , age undetermined Abnormal ECG When compared with ECG of 20-AUG-2021 17:33, No significant change was found Referred By: Amanda Wilson Electronically Signed By:OSMIN LOVE MD
[2021-11-10] MEDS: Omeprazole 20 MG CAPSULE.DR PO ×2 (06:04→16:21)
[2021-11-10 08:57] LABS: MANUAL DIFF FLAG NO
[2021-11-10 09:01] LABS: Basophils Percent Auto 0.5 % (0-2); Eosinophils Absolute Auto 0.4 X10*3/uL (0.0-0.4); Eosinophils Percent Auto 6.3 % (0-4); Hematocrit 36.7 % (37.0-47.0); Hemoglobin 11.8 g/dl (12.0-16.0); Imm Gran Abs Auto 0.05 X10*3/uL (0.00-0.03); Imm Gran Pct Auto 0.9 % (0.0-0.4); Lymphocytes Absolute Auto 1.2 X10*3/uL (1.2-4.9); Mean Corpuscular HGB Conc 32.2 g/dl (31.0-35.0); Mean Corpuscular Hemoglobin 30.4 pg (27.0-33.0); Mean Corpuscular Volume 94.6 fL (80.0-98.0); Mean Platelet Volume 9.5 fL (9.4-12.3); Monocytes Absolute Auto 0.3 X10*3/uL (0.1-1.2); Monocytes Percent Auto 5.5 % (2-11); Neutrophils Absolute Auto 3.9 x10*3/uL (2.0-8.3); Neutrophils Percent Auto 65.8 % (45-73); Platelet Count 363 X10*3/uL (160-400); Red Blood Count 3.88 X10*6/uL (4.20-5.50); Red Cell Distribution Width 11.9 % (11.0-16.0); White Blood Count 5.9 X10*3/uL (4.8-10.8)
[2021-11-10 09:06] LABS: Lithium 1.09 mmol/L (0.60-1.20)
[2021-11-10 09:15] LABS: Alanine Aminotransferase 27 U/L (0-31); Albumin Level 3.9 g/dL (3.5-5.0); Alkaline Phosphatase 118 U/L (39-117); Anion Gap 14 (12-20); Aspartate Amino Transferase 17 U/L (5-31); Bilirubin Total 0.3 mg/dL (0.0-1.0); Blood Urea Nitrogen 38 mg/dL (9-16); Calcium 10.2 mg/dL (8.4-10.2); Carbon Dioxide 30 mmol/L (22-29); Chloride 100 mmol/L (96-108); Creatinine Clr Calc Pharmacy 55.1; Estimated Glomerular Filt Rate 42; Glucose Random 144 mg/dL (60-115); Potassium 5.6 mmol/L (3.3-5.1); Sodium 138 mmol/L (135-145); Total Protein 6.4 g/dL (6.5-8.0)
[2021-11-10 10:00] VITALS: BP 125/79; PULSE 72; TEMP 36.4; O2SAT 97
[2021-11-10] MEDS: Gabapentin 400 MG CAPSULE 800 MG PO ×3 (10:03→20:03)
[2021-11-10] MEDS: DULoxetine HCl 30 MG CAPSULE.DR PO (10:03)
[2021-11-10] MEDS: rOPINIRole HCL 0.5 MG TABLET PO (10:04)
[2021-11-10] MEDS: Cholecalciferol (Vitamin D3) 10 MCG TABLET PO (10:04)
[2021-11-10] MEDS: Sennosides/Docusate Sodium TABLET 1 TAB PO ×2 (10:05→20:03)
[2021-11-10] MEDS: Sodium Chloride 0.65 % Nasal 44 ML SPRBTL 1 SPRAY NOSTRIL-B (10:05)
[2021-11-10] MEDS: Docusate Sodium 100 MG CAPSULE PO ×2 (10:05→20:03)
[2021-11-10] MEDS: Lithium Carbonate 300 MG TABLET PO (10:06)
[2021-11-10] MEDS: Cyanocobalamin (Vitamin B-12) 100 MCG TABLET PO (10:06)
[2021-11-10] MEDS: amLODIPine Besylate 2.5 MG TABLET PO (10:07)
[2021-11-10] MEDS: Diclofenac Sodium Delayed Rel 50 MG TABLET.DR PO ×2 (10:07→14:36)
[2021-11-10] MEDS: Multivitamin TABLET 1 TAB PO (10:09)
[2021-11-10] MEDS: Nicotine 14 MG PATCH.TD24 TRANSDERMA (10:11)
[2021-11-10] MEDS: Mineral Oil/Petrolatum,White 106 GM Tube 1 APPL TOPICAL (10:16)
[2021-11-10] MEDS: Nicotine Polacrilex 2 MG GUM 4 MG BUCCAL ×3 (10:31→20:45)
--- NOTE | 2021-11-10 10:40 | P.PNPSI_ITS ---
Subjective Subjective Date of Service: 11/10/21 Reason For Visit: Bipolar, Schizoaffective Subjective Notes: Conditional Voluntary Interim History: Pt reports sore throat persists. She showered today and labs were completed which were abnormal. Potassium is high along with TSH, BUN, Mg. Question of CKD . [place] discontinued, Synthroid initiated, fluids encouraged, plasma potassium ordered for 11/11. Consulted with Dr. Aguero and nephrology. Review with pt who agrees to retrial Lamictal. Review of diagnostics with pt as well. Medication Compliance: Yes Side effects from medications: No Attending Groups: No Review of Systems Acute medical concerns: No Medical Review of Systems: unchanged Review of Systems Reports sore throat Psychiatric: Reports anxiety, Reports depression, Reports hopelessness, Reports anhedonia and Reports paranoia Mental Status Exam Mental Status Exam Patient Appearance: Disheveled Patient Orientation: Person, Place, Time and Situation Level of Consciousness: Alert Patient Behavior: Talkative and Good Eye Contact Mood Description: Withdrawn Affect Description: Flat Patient Cognition Impaired: No Ability to Follow Directions: Good Speech Pattern: Spontaneous Speech Memory Description: Intact Hallucinations: Auditory (intermittent at baseline) Delusions: Paranoid Ideation (intermittent at baseline) Thought Process: Intact and Goal Oriented Thought Content: positive for Goal Oriented Depressive Symptoms: Increased Anxiety (regarding new living situation and leaving hospital care) Judgement: Good Diagnostics Vital Signs (24Hr): Vital Signs - 24 hr 11/09/21 14:33 11/09/21 22:00 Temperature 98.4 F 98.8 F Pulse Rate 73 111 H Blood Pressure 98/61 124/72 Pulse Oximetry 97 98 BMI result Body Mass Index 32.8 Labs Results: 11/10/21 08:55 11/10/21 08:55 Labs: Laboratory Results - last 48 hr 11/09/21 11/10/21 11/10/21 14:07 08:55 08:55 WBC 5.9 RBC 3.88 L Hgb 11.8 L Hct 36.7 L MCV 94.6 MCH 30.4 MCHC 32.2 RDW 11.9 Plt Count 363 MPV 9.5 Immature Gran % (Auto) 0.9 H Neut % (Auto) 65.8 Lymph % (Auto) 21.0 [place] % (Auto) 5.5 Eos % (Auto) 6.3 H Baso % (Auto) 0.5 Lymph # (Auto) 1.2 [place] # (Auto) 0.3 Eos # (Auto) 0.4 Baso # (Auto) 0.0 Abs Immat Gran (auto) 0.05 H Absolute Neuts (auto) 3.9 Absolute Nucleated RBC 0.000 Nucleated RBC % (auto) 0.0 Sodium 138 Potassium 5.6 H Chloride 100 Carbon Dioxide 30 H Anion Gap 14 BUN 38 H Creatinine 1.32 Estim Creat Clear Calc 55.1 Estimated GFR 42 Random Glucose 144 H Calcium 10.2 Total Bilirubin 0.3 AST 17 ALT 27 Alkaline Phosphatase 118 H Total Protein 6.4 L Albumin 3.9 [place] COVID-19 ([facility]) Negative COVID-19 Clin Com See Note 11/10/21 08:55 WBC RBC Hgb Hct MCV MCH MCHC RDW Plt Count MPV Immature Gran % (Auto) Neut % (Auto) Lymph % (Auto) [place] % (Auto) Eos % (Auto) Baso % (Auto) Lymph # (Auto) [place] # (Auto) Eos # (Auto) Baso # (Auto) Abs Immat Gran (auto) Absolute Neuts (auto) Absolute Nucleated RBC Nucleated RBC % (auto) Sodium Potassium Chloride Carbon Dioxide Anion Gap BUN Creatinine Estim Creat Clear Calc Estimated GFR Random Glucose Calcium Total Bilirubin AST ALT Alkaline Phosphatase Total Protein Albumin [place] 1.09 COVID-19 ([facility]) COVID-19 Clin Com Imaging Radiology Impressions: ITS Impressions Abdomen Ultrasound 09/01/21 08:59 IMPRESSION: Slightly echogenic liver. Limited evaluation of the gallbladder as the patient has recently eaten. No gallstone seen. Limited visualization of the pancreas. Hip X-Ray 09/16/21 14:47 IMPRESSION: Moderate to severe left hip arthritis. Medications Medications Current Medications Acetaminophen (Acetaminophen 325 Mg Tablet) 975 mg PO Q6H PRN PRN Reason: Headache/Pain Mild Scale (1-3) Last Admin: 11/07/21 17:06 Dose: 975 mg Documented by: Al Hydroxide/Mg Hydroxide (Magnesium Hydrox/Alum Hydrox 30 Ml Oral.Susp) 30 ml PO Q6H PRN PRN Reason: Heartburn/Nausea Last Admin: 08/22/21 05:54 Dose: 30 ml Documented by: Amlodipine Besylate (Amlodipine Besylate 2.5 Mg Tablet) 2.5 mg PO DAILY YAYA; Protocol Last Admin: 11/10/21 10:07 Dose: 2.5 mg Documented by: Artificial Tears (Artificial Tears 15 Ml Drops) 2 drop EYE-BOTH Q4H PRN PRN Reason: Dry Eyes Last Admin: 10/24/21 08:47 Dose: 2 drop Documented by: Aspirin (Aspirin Enteric Coated 325 Mg Tablet.) 650 mg PO DAILY PRN PRN Reason: headache Last Admin: 09/06/21 12:18 Dose: 650 mg Documented by: Benzocaine (Benzocaine 20 % Oral Gel 9 Gm Tube) 1 appl MUCOUS MEM QID PRN; Protocol PRN Reason: Mouth Sore Pain Last Admin: 08/31/21 03:05 Dose: 1 appl Documented by: Benzocaine (Throat Lozenge, Medicated Lozenge) 1 lozenge MUCOUS MEM Q2H PRN PRN Reason: Sore Throat Calcium Carbonate (Calcium Carbonate 500 Mg Tablet) 500 mg PO DAILY [facility] Last Admin: 11/10/21 10:06 Dose: 500 mg Documented by: Calcium Carbonate (Calcium Carbonate 750 Mg Tab.Chew) 750 mg PO Q4H PRN PRN Reason: Heartburn Last Admin: 11/06/21 20:15 Dose: 750 mg Documented by: Clotrimazole (Clotrimazole 1 % Cream 15 Gm Tube) 1 appl TOPICAL BID YAYA; Protocol Last Admin: 11/10/21 10:12 Dose: Not Given Documented by: [place] Butter/Zinc Oxide ([place] Butter/Zinc Oxide Supp.Rect) 1 supp NE BEDTIME PRN PRN Reason: hemorrhoid pain Last Admin: 09/13/21 21:15 Dose: 1 supp Documented by: Cyanocobalamin (Cyanocobalamin (Vitamin B-12) 100 Mcg Tablet) 100 mcg PO DAILY [facility] Last Admin: 11/10/21 10:06 Dose: 100 mcg Documented by: Diclofenac Sodium (Diclofenac Sodium Delayed Rel 50 Mg Tablet.) 50 mg PO TID [facility] Last Admin: 11/10/21 10:07 Dose: 50 mg Documented by: Diphenhydramine HCl (Diphenhydramine Hcl 25 Mg Tablet) 50 mg PO Q6H PRN PRN Reason: eps Last Admin: 09/22/21 23:48 Dose: 50 mg Documented by: Docusate Sodium (Docusate Sodium 100 Mg Capsule) 100 mg PO BID [facility] Last Admin: 11/10/21 10:05 Dose: 100 mg Documented by: Duloxetine HCl (Duloxetine Hcl 30 Mg Capsule.) 30 mg PO DAILY [facility] Last Admin: 11/10/21 10:03 Dose: 30 mg Documented by: Gabapentin (Gabapentin 400 Mg Capsule) 800 mg PO TID [facility] Last Admin: 11/10/21 10:03 Dose: 800 mg Documented by: Gabapentin (Gabapentin 100 Mg Capsule) 100 mg PO TID PRN PRN Reason: neuropathic pain Last Admin: 09/26/21 17:14 Dose: 100 mg Documented by: Hydroxyzine HCl (Hydroxyzine Hcl 25 Mg Tablet) 25 mg PO BEDTIME PRN PRN Reason: Anxiety Last Admin: 09/22/21 23:48 Dose: 25 mg Documented by: Hydroxyzine HCl (Hydroxyzine Hcl 25 Mg Tablet) 25 mg PO BEDTIME [facility] Last Admin: 11/09/21 20:22 Dose: 25 mg Documented by: Lidocaine (Lidocaine 4 % Patch Adh..Patch) 1 patch TRANSDERMA DAILY [facility]; Protocol Last Admin: 11/10/21 10:16 Dose: Not Given Documented by: [place] Carbonate ([place] Carbonate 300 Mg Tablet) 300 mg PO BID [facility] Last Admin: 11/10/21 10:06 Dose: 300 mg Documented by: Lorazepam (Lorazepam 0.5 Mg Tablet) 0.5 mg PO DAILY PRN PRN Reason: Anxiety Stop: 11/11/21 23:00 Magnesium Citrate (Magnesium Citrate 300 Ml Solution) 300 ml PO DAILY PRN PRN Reason: Constipation Last Admin: 11/08/21 19:03 Dose: 300 ml Documented by: Magnesium Hydroxide (Milk Of Magnesia 30 Ml Oral.Susp) 30 ml PO DAILY PRN PRN Reason: Constipation Last Admin: 08/31/21 20:05 Dose: 30 ml Documented by: Melatonin (Melatonin 3 Mg Tablet) 9 mg PO BEDTIME [facility] Last Admin: 11/09/21 20:23 Dose: 9 mg Documented by: Multi-Ingred Cream/Lotion/Oil/Oint (Mineral Oil/Petrolatum,White 106 Gm Tube) 1 appl TOPICAL BID [facility]; Protocol Last Admin: 11/10/21 10:16 Dose: 1 appl Documented by: Multivitamins/Vitamin C (Multivitamin Tablet) 1 tab PO DAILY [facility] Last Admin: 11/10/21 10:09 Dose: 1 tab Documented by: Nicotine (Nicotine 14 Mg Patch.Td24) 14 mg TRANSDERMA DAILY [facility] Last Admin: 11/10/21 10:11 Dose: 14 mg Documented by: Nicotine Polacrilex (Nicotine Polacrilex 2 Mg Gum) 4 mg BUCCAL Q1H PRN PRN Reason: Nicotine Cravings Last Admin: 11/10/21 10:31 Dose: 4 mg Documented by: Patient Own Medication (Dry Eye Relief) 1 each EYE-BOTH QID [facility] Last Admin: 11/10/21 10:05 Dose: 1 each Documented by: Omeprazole (Omeprazole 20 Mg Capsule.Dr) 20 mg PO BID@0630,1630 [facility] Last Admin: 11/10/21 06:04 Dose: 20 mg Documented by: Polyethylene Glycol (Polyethylene Glycol 3350 17 Gm Powd.Pack) 17 gm PO DAILY PRN PRN Reason: Constipation Last Admin: 11/09/21 09:49 Dose: 17 gm Documented by: Psyllium Hydrophilic Mucilloid (Psyllium Seed 3.4 Gm Powd.Pack) 3.4 gm PO DAILY [facility] Last Admin: 11/10/21 10:10 Dose: 3.4 gm Documented by: Quetiapine Fumarate (Quetiapine Fumarate 200 Mg Tablet) 200 mg PO Q6H PRN PRN Reason: anxiety/restlessness Last Admin: 09/21/21 02:38 Dose: 200 mg Documented by: Quetiapine Fumarate (Quetiapine Fumarate 100 Mg Tablet) 700 mg PO BEDTIME [facility] Last Admin: 11/09/21 20:22 Dose: 700 mg Documented by: Ropinirole HCl (Ropinirole Hcl 0.5 Mg Tablet) 0.5 mg PO 0800 [facility] Last Admin: 11/10/21 10:04 Dose: 0.5 mg Documented by: Ropinirole HCl (Ropinirole Hcl 1 Mg Tablet) 2 mg PO DAILY@1900 [facility] Last Admin: 11/09/21 18:58 Dose: 2 mg Documented by: Senna/Docusate Sodium (Sennosides/Docusate Sodium Tablet) 1 tab PO BID [facility] Last Admin: 11/10/21 10:05 Dose: 1 tab Documented by: Simethicone (Simethicone 80 Mg Tab.Chew) 80 mg PO QIDWMHS PRN PRN Reason: indigestion Last Admin: 11/05/21 17:25 Dose: 80 mg Documented by: Sodium Chloride (Sodium Chloride 0.65 % Nasal 44 Ml Sprbtl) 1 spray NOSTRIL-B Q1H PRN PRN Reason: congestion Last Admin: 11/10/21 10:05 Dose: 1 spray Documented by: Trazodone HCl (Trazodone Hcl 50 Mg Tablet) 50 mg PO BEDTIME PRN PRN Reason: insomnia Last Admin: 11/09/21 19:16 Dose: 50 mg Documented by: Trolamine Salicylate/Aloe Vera (Trolamine Salicylate 10%/Aloe Cream 35.4 Gm) 1 appl TOPICAL TID PRN PRN Reason: sciatica Last Admin: 09/03/21 05:27 Dose: 1 appl Documented by: Vitamin D (Cholecalciferol (Vitamin D3) 10 Mcg Tablet) 10 mcg PO DAILY [facility] Last Admin: 11/10/21 10:04 Dose: 10 mcg Documented by: Allergies Allergies Allergy/AdvReac Type Severity Reaction Status Date / Time aripiprazole [From Abilify] Allergy Unknown Involuntary Verified 08/19/21 07:20 Spasms chlorpromazine Allergy Unknown Nausea and Verified 08/19/21 07:20 [From Thorazine] Vomiting haloperidol [From Haldol] Allergy Unknown Involuntary Verified 08/19/21 07:20 Spasms olanzapine [From Zyprexa] Allergy Unknown Involuntary Verified 08/19/21 07:20 Spasms paliperidone [From Invega] Allergy Unknown Hallucinati Verified 08/19/21 07:20 ons risperidone Allergy Unknown Involuntary Verified 08/19/21 07:20 Spasms Assessment & Plan Assessment & Plan (1) Schizoaffective disorder, bipolar type: Status: Acute Code(s): F25.0 - Schizoaffective disorder, bipolar type (2) Lumbar radiculopathy: Status: Acute Code(s): M54.16 - Radiculopathy, lumbar region (3) Hip pain, left: Status: Acute Code(s): M25.552 - Pain in left hip Plan 11/05/21: Continue current plan. Support in transition 11/06/2021: Continue current regimen and plans. No changes were made today 11/07/2021: Continue current plans and regimen. No changes were made today 11/08/21: Discontinue a.m. Seroquel 100 mg Increase p.m. Seroquel to 700 mg from 600 mg, consolidating dosages per pt request to improve mgt of daytime sedation. 11/09/21: No changes today Throat culture, COVID-19 testing, throat lozenges prn 11/10/21: R/O CKD sx. Nephrology consultation. Discontinue [place] Lamictal 25 mg hs Encourage fluids Synthroid 12.5 mcg daily I spent minutes with the patient and/or on the patient floor today, greater than?50% of which was spent counseling/coordinating care. Patient educated on: medication risk/benefits, therapeutic strategies and medical condition Informed Consent: understands and further education needed Reason for contiued inpatient stay Substantial Risk for: inability to function and rapid decompensation
[2021-11-10 15:26] LABS: Thyroid Stimulating Hormone 5.87 uIU/mL (0.32-4.0)
[2021-11-10 15:31] LABS: Erythrocyte Sedimentation Rate 53 MM/HR (0-20)
[2021-11-10 15:41] LABS: Magnesium 2.9 mg/dL (1.6-2.6)
[2021-11-10 20:00] VITALS: BP 119/72; PULSE 83; TEMP 37.3; O2SAT 96
[2021-11-10] MEDS: hydrOXYzine HCL 25 MG TABLET PO (20:02)
[2021-11-10] MEDS: rOPINIRole HCL 1 MG TABLET 2 MG PO (20:02)
[2021-11-10] MEDS: QUEtiapine Fumarate 100 MG TABLET 700 MG PO (20:02)
[2021-11-10] MEDS: Sodium Zirconium Cyclosilicate 10 GM POWD.PACK PO (20:03)
[2021-11-10] MEDS: Melatonin 3 MG TABLET 9 MG PO (20:03)
[2021-11-10] MEDS: lamoTRIgine 25 MG TABLET PO (20:03)
[2021-11-10] MEDS: traZODone HCL 50 MG TABLET PO (20:45)
[2021-11-10] MEDS: LORazepam 0.5 MG TABLET PO (20:55)
[2021-11-11 06:00] VITALS: BP 138/80; PULSE 89; RESP 16; TEMP 36.6; O2SAT 96
[2021-11-11] MEDS: Levothyroxine Sodium 25 MCG TABLET 12.5 MCG PO (06:11)
[2021-11-11] MEDS: Omeprazole 20 MG CAPSULE.DR PO ×2 (06:11→16:19)
[2021-11-11 07:00] VITALS: BMI 38.0
[2021-11-11 08:54] LABS: Potassium 5.1 mmol/L (3.3-5.1)
[2021-11-11] MEDS: DULoxetine HCl 30 MG CAPSULE.DR PO (08:58)
[2021-11-11] MEDS: Gabapentin 400 MG CAPSULE 800 MG PO ×3 (08:58→20:03)
[2021-11-11] MEDS: Docusate Sodium 100 MG CAPSULE PO ×2 (08:58→20:03)
[2021-11-11] MEDS: Sennosides/Docusate Sodium TABLET 1 TAB PO ×2 (08:58→20:03)
[2021-11-11] MEDS: Cholecalciferol (Vitamin D3) 25 MCG TABLET PO (08:58)
[2021-11-11] MEDS: rOPINIRole HCL 0.5 MG TABLET PO (08:58)
[2021-11-11] MEDS: Multivitamin TABLET 1 TAB PO (08:58)
[2021-11-11] MEDS: amLODIPine Besylate 2.5 MG TABLET PO (08:58)
[2021-11-11] MEDS: Nicotine 14 MG PATCH.TD24 TRANSDERMA (08:59)
[2021-11-11] MEDS: Cyanocobalamin (Vitamin B-12) 100 MCG TABLET PO (09:08)
[2021-11-11] MEDS: Nicotine Polacrilex 2 MG GUM 4 MG BUCCAL (13:06)
--- NOTE | 2021-11-11 13:51 | CONS_ITS ---
DATE OF SERVICE: 11/11/2021 REASON FOR CONSULTATION: I was asked to see the patient to assist in evaluation and management of patient's hyperkalemia with potassium 5.6 yesterday that was surprising and a new finding for her, as her previous potassiums have been normal. She is noted to have a creatinine of 1.32 which is up from back in September when her creatinine was 0.97. HISTORY OF PRESENT ILLNESS: In summary, the patient is a 55-year-old who was admitted to the hospital a while ago and now was noted to have hyperkalemia. She has a history of bipolar schizoaffective disorder and tells me she has been on lithium longstanding. Her history is otherwise notable for hypertension. Her home medications we need to determine, it is unclear exactly what she is taking at home. MEDICATIONS: Her current medications noted in MAR include melatonin and multivitamin, B12, calcium, gabapentin, Requip, amlodipine 2.5 once a day. Hydroxyzine, omeprazole, Seroquel, Synthroid, and Lamictal. I do not see lithium looks like it was discontinued back on September 03. FAMILY HISTORY: Noted. REVIEW OF SYSTEMS: Unremarkable. PHYSICAL EXAMINATION: VITAL SIGNS: Blood pressure 120/70 with a heart rate in the 80s. She is afebrile. HEENT: Head is atraumatic and normocephalic. Mucous membranes are moist. EXTREMITIES: There is no peripheral edema. LABORATORY DATA: From yesterday, sodium 130, potassium 5.6, chloride 100, bicarb 30, BUN 38, creatinine 1.32, blood sugar 144, calcium 10.2, albumin not done, magnesium 2.9. Repeat potassium was 5.1, and she did get 1 dose of Lokelma last night. IMPRESSION: Hyperkalemia of unclear cause in the patient with a history of hypertension and what looks like borderline diabetes. 1. Hyperkalemia. At this juncture, it is unclear what the cause of the hyperkalemia is. She is not on any medications typically associated with hyperkalemia. Her renal dysfunction is not to the point that 1 would necessarily see hyperkalemia. She has not had hyperkalemia in the past. Her bicarb is a slightly elevated which would go against a RTA such as a type 4 RTA can be associated hyperkalemia. The lab draw does not comment that was hemolyzed, but this certainly be a consideration. Sometimes if the tourniquet has left on too long or she is a difficult stick, this can also cause hyperkalemia. Her platelet count is not elevated and so she does not have a pseudohyperkalemia from elevated platelet count. SUGGESTIONS: At this time include repeat labs tomorrow. We will check a plasma potassium at the same time as the serum potassium. If her potassium again goes up, then further evaluation would be warranted. We will follow the patient closely with the team. MD EMILIA Baron/GRETA / [id number]
[2021-11-11 18:00] VITALS: BP 144/90; PULSE 89; RESP 16; TEMP 36.3; O2SAT 97
--- NOTE | 2021-11-11 18:31 | P.PNPSI_ITS ---
Subjective Subjective Date of Service: 11/11/21 Reason For Visit: Bipolar, Schizoaffective Interim History: Blanca was seen by the renal team today for hyperkalemia. Etiology is unclear at this time. She reports feeling well today, is visable in the milieu, watching TV, walking to get exercise and engaging. Discussed lab results and attempted to answer her questions regarding findings of yesterday's evaluation. Medication Compliance: Yes Side effects from medications: No Attending Groups: Yes Review of Systems Acute medical concerns: No Medical Review of Systems: unchanged Review of Systems Reports sore throat Psychiatric: Reports anxiety Mental Status Exam Mental Status Exam Patient Appearance: Disheveled Patient Orientation: Person, Place, Time and Situation Level of Consciousness: Alert Patient Behavior: Talkative and Good Eye Contact Mood Description: Anxious Affect Description: Flat Patient Cognition Impaired: No Ability to Follow Directions: Good Speech Pattern: Spontaneous Speech Memory Description: Intact Hallucinations: None Delusions: Not Present Thought Process: Distracted Thought Content: positive for Circumstantial and positive for Tangential Depressive Symptoms: Increased Anxiety Judgement: Good Diagnostics Vital Signs (24Hr): Vital Signs - 24 hr 11/10/21 20:00 11/11/21 06:00 Temperature 99.1 F 98 F Pulse Rate 83 89 Respiratory Rate 16 Blood Pressure 119/72 138/80 Pulse Oximetry 96 96 BMI result Body Mass Index 38.0 Labs Results: 11/10/21 08:55 11/11/21 07:56 Labs: Laboratory Results - last 48 hr 11/10/21 11/10/21 11/10/21 08:55 08:55 08:55 WBC 5.9 RBC 3.88 L Hgb 11.8 L Hct 36.7 L MCV 94.6 MCH 30.4 MCHC 32.2 RDW 11.9 Plt Count 363 MPV 9.5 Immature Gran % (Auto) 0.9 H Neut % (Auto) 65.8 Lymph % (Auto) 21.0 [place] % (Auto) 5.5 Eos % (Auto) 6.3 H Baso % (Auto) 0.5 Lymph # (Auto) 1.2 [place] # (Auto) 0.3 Eos # (Auto) 0.4 Baso # (Auto) 0.0 Abs Immat Gran (auto) 0.05 H Absolute Neuts (auto) 3.9 Absolute Nucleated RBC 0.000 Nucleated RBC % (auto) 0.0 ESR Sodium 138 Potassium 5.6 H Chloride 100 Carbon Dioxide 30 H Anion Gap 14 BUN 38 H Creatinine 1.32 Estim Creat Clear Calc 55.1 Estimated GFR 42 Random Glucose 144 H Calcium 10.2 Magnesium 2.9 H Total Bilirubin 0.3 AST 17 ALT 27 Alkaline Phosphatase 118 H Total Creatine Kinase 45 Total Protein 6.4 L Albumin 3.9 TSH 5.87 H [place] 1.09 11/10/21 11/11/21 08:55 07:56 WBC RBC Hgb Hct MCV MCH MCHC RDW Plt Count MPV Immature Gran % (Auto) Neut % (Auto) Lymph % (Auto) [place] % (Auto) Eos % (Auto) Baso % (Auto) Lymph # (Auto) [place] # (Auto) Eos # (Auto) Baso # (Auto) Abs Immat Gran (auto) Absolute Neuts (auto) Absolute Nucleated RBC Nucleated RBC % (auto) ESR 53 H Sodium Potassium 5.1 Chloride Carbon Dioxide Anion Gap BUN Creatinine Estim Creat Clear Calc Estimated GFR Random Glucose Calcium Magnesium Total Bilirubin AST ALT Alkaline Phosphatase Total Creatine Kinase Total Protein Albumin TSH [place] Imaging Radiology Impressions: ITS Impressions Abdomen Ultrasound 09/01/21 08:59 IMPRESSION: Slightly echogenic liver. Limited evaluation of the gallbladder as the patient has recently eaten. No gallstone seen. Limited visualization of the pancreas. Hip X-Ray 09/16/21 14:47 IMPRESSION: Moderate to severe left hip arthritis. Medications Medications Current Medications Acetaminophen (Acetaminophen 325 Mg Tablet) 975 mg PO Q6H PRN PRN Reason: Headache/Pain Mild Scale (1-3) Last Admin: 11/07/21 17:06 Dose: 975 mg Documented by: Al Hydroxide/Mg Hydroxide (Magnesium Hydrox/Alum Hydrox 30 Ml Oral.Susp) 30 ml PO Q6H PRN PRN Reason: Heartburn/Nausea Last Admin: 08/22/21 05:54 Dose: 30 ml Documented by: Amlodipine Besylate (Amlodipine Besylate 2.5 Mg Tablet) 2.5 mg PO DAILY [facility]; Protocol Last Admin: 11/11/21 08:58 Dose: 2.5 mg Documented by: Artificial Tears (Artificial Tears 15 Ml Drops) 2 drop EYE-BOTH Q4H PRN PRN Reason: Dry Eyes Last Admin: 10/24/21 08:47 Dose: 2 drop Documented by: Aspirin (Aspirin Enteric Coated 325 Mg Tablet.) 650 mg PO DAILY PRN PRN Reason: headache Last Admin: 09/06/21 12:18 Dose: 650 mg Documented by: Benzocaine (Benzocaine 20 % Oral Gel 9 Gm Tube) 1 appl MUCOUS MEM QID PRN; Protocol PRN Reason: Mouth Sore Pain Last Admin: 08/31/21 03:05 Dose: 1 appl Documented by: Benzocaine (Throat Lozenge, Medicated Lozenge) 1 lozenge MUCOUS MEM Q2H PRN PRN Reason: Sore Throat Calcium Carbonate (Calcium Carbonate 500 Mg Tablet) 500 mg PO DAILY [facility] Last Admin: 11/11/21 08:58 Dose: 500 mg Documented by: Calcium Carbonate (Calcium Carbonate 750 Mg Tab.Chew) 750 mg PO Q4H PRN PRN Reason: Heartburn Last Admin: 11/06/21 20:15 Dose: 750 mg Documented by: Clotrimazole (Clotrimazole 1 % Cream 15 Gm Tube) 1 appl TOPICAL BID [facility]; Protocol Last Admin: 11/11/21 09:08 Dose: Not Given Documented by: [place] Butter/Zinc Oxide ([place] Butter/Zinc Oxide Supp.Rect) [address] BEDTIME PRN PRN Reason: hemorrhoid pain Last Admin: 09/13/21 21:15 Dose: 1 supp Documented by: Cyanocobalamin (Cyanocobalamin (Vitamin B-12) 100 Mcg Tablet) 100 mcg PO DAILY [facility] Last Admin: 11/11/21 09:08 Dose: 100 mcg Documented by: Diphenhydramine HCl (Diphenhydramine Hcl 25 Mg Tablet) 50 mg PO Q6H PRN PRN Reason: eps Last Admin: 09/22/21 23:48 Dose: 50 mg Documented by: Docusate Sodium (Docusate Sodium 100 Mg Capsule) 100 mg PO BID [facility] Last Admin: 11/11/21 08:58 Dose: 100 mg Documented by: Duloxetine HCl (Duloxetine Hcl 30 Mg Capsule.) 30 mg PO DAILY [facility] Last Admin: 11/11/21 08:58 Dose: 30 mg Documented by: Gabapentin (Gabapentin 400 Mg Capsule) 800 mg PO TID [facility] Last Admin: 11/11/21 14:22 Dose: 800 mg Documented by: Gabapentin (Gabapentin 100 Mg Capsule) 100 mg PO TID PRN PRN Reason: neuropathic pain Last Admin: 09/26/21 17:14 Dose: 100 mg Documented by: Hydroxyzine HCl (Hydroxyzine Hcl 25 Mg Tablet) 25 mg PO BEDTIME PRN PRN Reason: Anxiety Last Admin: 09/22/21 23:48 Dose: 25 mg Documented by: Hydroxyzine HCl (Hydroxyzine Hcl 25 Mg Tablet) 25 mg PO BEDTIME [facility] Last Admin: 11/10/21 20:02 Dose: 25 mg Documented by: Lamotrigine (Lamotrigine 25 Mg Tablet) 25 mg PO BEDTIME [facility] Last Admin: 11/10/21 20:03 Dose: 25 mg Documented by: Levothyroxine Sodium (Levothyroxine Sodium 25 Mcg Tablet) 12.5 mcg PO DAILY@0600 [facility] Last Admin: 11/11/21 06:11 Dose: 12.5 mcg Documented by: Lidocaine (Lidocaine 4 % Patch Adh..Patch) 1 patch TRANSDERMA DAILY [facility]; Protocol Last Admin: 11/11/21 09:08 Dose: Not Given Documented by: Lorazepam (Lorazepam 0.5 Mg Tablet) 0.5 mg PO DAILY PRN PRN Reason: Anxiety Stop: 11/11/21 23:00 Last Admin: 11/10/21 20:55 Dose: 0.5 mg Documented by: Magnesium Citrate (Magnesium Citrate 300 Ml Solution) 300 ml PO DAILY PRN PRN Reason: Constipation Last Admin: 11/08/21 19:03 Dose: 300 ml Documented by: Magnesium Hydroxide (Milk Of Magnesia 30 Ml Oral.Susp) 30 ml PO DAILY PRN PRN Reason: Constipation Last Admin: 08/31/21 20:05 Dose: 30 ml Documented by: Melatonin (Melatonin 3 Mg Tablet) 9 mg PO BEDTIME [facility] Last Admin: 11/10/21 20:03 Dose: 9 mg Documented by: Multi-Ingred Cream/Lotion/Oil/Oint (Mineral Oil/Petrolatum,White 106 Gm Tube) 1 appl TOPICAL BID [facility]; Protocol Last Admin: 11/11/21 09:08 Dose: Not Given Documented by: Multivitamins/Vitamin C (Multivitamin Tablet) 1 tab PO DAILY [facility] Last Admin: 11/11/21 08:58 Dose: 1 tab Documented by: Nicotine (Nicotine 14 Mg Patch.Td24) 14 mg TRANSDERMA DAILY [facility] Last Admin: 11/11/21 08:59 Dose: 14 mg Documented by: Nicotine Polacrilex (Nicotine Polacrilex 2 Mg Gum) 4 mg BUCCAL Q1H PRN PRN Reason: Nicotine Cravings Last Admin: 11/11/21 13:06 Dose: 4 mg Documented by: Patient Own Medication (Dry Eye Relief) 1 each EYE-BOTH QID [facility] Last Admin: 11/11/21 16:22 Dose: 1 each Documented by: Omeprazole (Omeprazole 20 Mg Capsule.Dr) 20 mg PO BID@0630,1630 [facility] Last Admin: 11/11/21 16:19 Dose: 20 mg Documented by: Polyethylene Glycol (Polyethylene Glycol 3350 17 Gm Powd.Pack) 17 gm PO DAILY PRN PRN Reason: Constipation Last Admin: 11/09/21 09:49 Dose: 17 gm Documented by: Psyllium Hydrophilic Mucilloid (Psyllium Seed 3.4 Gm Powd.Pack) 3.4 gm PO DAILY [facility] Last Admin: 11/11/21 08:59 Dose: 3.4 gm Documented by: Quetiapine Fumarate (Quetiapine Fumarate 200 Mg Tablet) 200 mg PO Q6H PRN PRN Reason: anxiety/restlessness Last Admin: 09/21/21 02:38 Dose: 200 mg Documented by: Quetiapine Fumarate (Quetiapine Fumarate 100 Mg Tablet) 700 mg PO BEDTIME [facility] Last Admin: 11/10/21 20:02 Dose: 700 mg Documented by: Ropinirole HCl (Ropinirole Hcl 0.5 Mg Tablet) 0.5 mg PO 0800 [facility] Last Admin: 11/11/21 08:58 Dose: 0.5 mg Documented by: Ropinirole HCl (Ropinirole Hcl 1 Mg Tablet) 2 mg PO DAILY@1900 [facility] Last Admin: 11/10/21 20:02 Dose: 2 mg Documented by: Senna/Docusate Sodium (Sennosides/Docusate Sodium Tablet) 1 tab PO BID [facility] Last Admin: 11/11/21 08:58 Dose: 1 tab Documented by: Simethicone (Simethicone 80 Mg Tab.Chew) 80 mg PO QIDWMHS PRN PRN Reason: indigestion Last Admin: 11/05/21 17:25 Dose: 80 mg Documented by: Sodium Chloride (Sodium Chloride 0.65 % Nasal 44 Ml Sprbtl) 1 spray NOSTRIL-B Q1H PRN PRN Reason: congestion Last Admin: 11/10/21 10:05 Dose: 1 spray Documented by: Trazodone HCl (Trazodone Hcl 50 Mg Tablet) 50 mg PO BEDTIME PRN PRN Reason: insomnia Last Admin: 11/10/21 20:45 Dose: 50 mg Documented by: Trolamine Salicylate/Aloe Vera (Trolamine Salicylate 10%/Aloe Cream 35.4 Gm) 1 appl TOPICAL TID PRN PRN Reason: sciatica Last Admin: 09/03/21 05:27 Dose: 1 appl Documented by: Vitamin D (Cholecalciferol (Vitamin D3) 25 Mcg Tablet) 25 mcg PO DAILY [facility] Last Admin: 11/11/21 08:58 Dose: 25 mcg Documented by: Allergies Allergies Allergy/AdvReac Type Severity Reaction Status Date / Time aripiprazole [From Abilify] Allergy Unknown Involuntary Verified 08/19/21 07:20 Spasms chlorpromazine Allergy Unknown Nausea and Verified 08/19/21 07:20 [From Thorazine] Vomiting haloperidol [From Haldol] Allergy Unknown Involuntary Verified 08/19/21 07:20 Spasms olanzapine [From Zyprexa] Allergy Unknown Involuntary Verified 08/19/21 07:20 Spasms paliperidone [From Invega] Allergy Unknown Hallucinati Verified 08/19/21 07:20 ons risperidone Allergy Unknown Involuntary Verified 08/19/21 07:20 Spasms Assessment & Plan Assessment & Plan (1) Schizoaffective disorder, bipolar type: Status: Acute Code(s): F25.0 - Schizoaffective disorder, bipolar type (2) Lumbar radiculopathy: Status: Acute Code(s): M54.16 - Radiculopathy, lumbar region (3) Hip pain, left: Status: Acute Code(s): M25.552 - Pain in left hip Plan 11/05/21: Continue current plan. Support in transition 11/06/2021: Continue current regimen and plans. No changes were made today 11/07/2021: Continue current plans and regimen. No changes were made today 11/08/21: Discontinue a.m. Seroquel 100 mg Increase p.m. Seroquel to 700 mg from 600 mg, consolidating dosages per pt request to improve mgt of daytime sedation. 11/09/21: No changes today Throat culture, COVID-19 testing, throat lozenges prn 11/10/21: R/O CKD sx. Nephrology consultation. Discontinue [place] Lamictal 25 mg hs Encourage fluids Synthroid 12.5 mcg daily 11/11/21: No regime changes today. Continue to monitor I spent minutes with the patient and/or on the patient floor today, greater than?50% of which was spent counseling/coordinating care. Patient educated on: medication risk/benefits and therapeutic strategies Informed Consent: understands and further education needed Reason for contiued inpatient stay Substantial Risk for: inability to function and rapid decompensation
[2021-11-11] MEDS: Melatonin 3 MG TABLET 9 MG PO (20:02)
[2021-11-11] MEDS: lamoTRIgine 25 MG TABLET PO (20:03)
[2021-11-11] MEDS: rOPINIRole HCL 1 MG TABLET 2 MG PO (20:03)
[2021-11-11] MEDS: QUEtiapine Fumarate 100 MG TABLET 700 MG PO (20:04)
[2021-11-11] MEDS: hydrOXYzine HCL 25 MG TABLET PO (20:04)
[2021-11-11] MEDS: traZODone HCL 50 MG TABLET PO (21:13)
[2021-11-11] MEDS: LORazepam 0.5 MG TABLET PO (21:13)
--- NOTE | 2021-11-12 | ECG_ITS ---
Test Reason : CP Blood Pressure : / mmHG Vent. Rate : 085 BPM Atrial Rate : 085 BPM P-R Int : 136 ms QRS Dur : 086 ms QT Int : 358 ms P-R-T Axes : 056 008 077 degrees QTc Int : 426 ms Normal sinus rhythm Cannot rule out Inferior infarct (cited on or before 10-NOV-2021) Abnormal ECG When compared with ECG of 10-NOV-2021 14:29, No significant change was found Referred By: Amanda Wilson Electronically Signed By:Sebastian Romeo
[2021-11-12 06:00] VITALS: BP 136/78; PULSE 88; RESP 14; TEMP 36.6; O2SAT 97
[2021-11-12] MEDS: Levothyroxine Sodium 25 MCG TABLET 12.5 MCG PO (06:30)
[2021-11-12] MEDS: rOPINIRole HCL 0.5 MG TABLET PO (06:30)
[2021-11-12] MEDS: Omeprazole 20 MG CAPSULE.DR PO ×2 (06:30→16:47)
[2021-11-12] MEDS: Nicotine Polacrilex 2 MG GUM 4 MG BUCCAL ×4 (06:45→20:50)
[2021-11-12] MEDS: Nicotine 14 MG PATCH.TD24 TRANSDERMA (08:23)
[2021-11-12] MEDS: DULoxetine HCl 30 MG CAPSULE.DR PO (08:24)
[2021-11-12] MEDS: Cyanocobalamin (Vitamin B-12) 100 MCG TABLET PO (08:24)
[2021-11-12] MEDS: Cholecalciferol (Vitamin D3) 25 MCG TABLET PO (08:24)
[2021-11-12] MEDS: Docusate Sodium 100 MG CAPSULE PO ×2 (08:24→20:54)
[2021-11-12] MEDS: amLODIPine Besylate 2.5 MG TABLET PO (08:24)
[2021-11-12] MEDS: Sennosides/Docusate Sodium TABLET 1 TAB PO ×2 (08:24→20:50)
[2021-11-12] MEDS: Gabapentin 400 MG CAPSULE 800 MG PO ×3 (08:24→20:50)
[2021-11-12] MEDS: Multivitamin TABLET 1 TAB PO (08:24)
[2021-11-12 09:29] LABS: Anion Gap 15 (12-20); Carbon Dioxide 26 mmol/L (22-29); Chloride 104 mmol/L (96-108); Potassium 4.8 mmol/L (3.3-5.1); Sodium 140 mmol/L (135-145)
[2021-11-12] MEDS: polyethylene glycoL 3350 17 GM POWD.PACK PO (12:37)
[2021-11-12] MEDS: Magnesium Citrate 300 ML SOLUTION PO (13:34)
--- NOTE | 2021-11-12 14:15 | P.PNPSI_ITS ---
Subjective Subjective Date of Service: 11/12/21 Reason For Visit: Bipolar, Schizoaffective Interim History: Medication review with pt. Atarax, Lidocaine, Requip a.m. dose, Lidocaine discontinued. Trazodone increase to 75 mg hs.Seroquel prn changed from 200 mg to 100 mg every 6 hours. Pt pleased to review these as I am preparing for my discharge. Medically, reports chest pain, burning, tingling in her back, intermittent SOB. EKG with no changes from tracing earlier this week, CPK 65. Pt reports symptoms are because I have two hearts, I am a very loving person. Medication Compliance: Yes Side effects from medications: No Attending Groups: No Review of Systems Acute medical concerns: No Medical Review of Systems: unchanged Review of Systems Cardiovascular: Reports chest pain and Reports dyspnea Respiratory: Reports dyspnea Psychiatric: Reports anxiety Mental Status Exam Mental Status Exam Patient Appearance: Disheveled Patient Orientation: Person, Place, Time and Situation Level of Consciousness: Alert Patient Behavior: Talkative and Good Eye Contact Mood Description: Anxious Affect Description: Flat Patient Cognition Impaired: No Ability to Follow Directions: Good Speech Pattern: Spontaneous Speech Memory Description: Intact Hallucinations: None Delusions: Not Present Thought Process: Distracted Thought Content: positive for Circumstantial and positive for Tangential Depressive Symptoms: Increased Anxiety Judgement: Good Diagnostics Vital Signs (24Hr): Vital Signs - 24 hr 11/11/21 18:00 11/12/21 06:00 Temperature 97.4 F 97.8 F Pulse Rate 89 88 Respiratory Rate 16 14 Blood Pressure 144/90 H 136/78 Pulse Oximetry 97 97 BMI result Body Mass Index 38.0 Labs Results: 11/10/21 08:55 11/12/21 09:04 Labs: Laboratory Results - last 48 hr 11/10/21 11/10/21 11/11/21 08:55 08:55 07:56 ESR 53 H Sodium Potassium 5.1 Chloride Carbon Dioxide Anion Gap Magnesium 2.9 H Total Creatine Kinase 45 TSH 5.87 H 11/12/21 11/12/21 09:04 11:39 ESR Sodium 140 Potassium 4.8 Chloride 104 Carbon Dioxide 26 Anion Gap 15 Magnesium Total Creatine Kinase 65 D TSH Imaging Radiology Impressions: ITS Impressions Abdomen Ultrasound 09/01/21 08:59 IMPRESSION: Slightly echogenic liver. Limited evaluation of the gallbladder as the patient has recently eaten. No gallstone seen. Limited visualization of the pancreas. Hip X-Ray 09/16/21 14:47 IMPRESSION: Moderate to severe left hip arthritis. Medications Medications Current Medications Acetaminophen (Acetaminophen 325 Mg Tablet) 975 mg PO Q6H PRN PRN Reason: Headache/Pain Mild Scale (1-3) Last Admin: 11/07/21 17:06 Dose: 975 mg Documented by: Al Hydroxide/Mg Hydroxide (Magnesium Hydrox/Alum Hydrox 30 Ml Oral.Susp) 30 ml PO Q6H PRN PRN Reason: Heartburn/Nausea Last Admin: 08/22/21 05:54 Dose: 30 ml Documented by: Amlodipine Besylate (Amlodipine Besylate 2.5 Mg Tablet) 2.5 mg PO DAILY [facility]; Protocol Last Admin: 11/12/21 08:24 Dose: 2.5 mg Documented by: Artificial Tears (Artificial Tears 15 Ml Drops) 2 drop EYE-BOTH Q4H PRN PRN Reason: Dry Eyes Last Admin: 10/24/21 08:47 Dose: 2 drop Documented by: Aspirin (Aspirin Enteric Coated 325 Mg Tablet.) 650 mg PO DAILY PRN PRN Reason: headache Last Admin: 09/06/21 12:18 Dose: 650 mg Documented by: Benzocaine (Benzocaine 20 % Oral Gel 9 Gm Tube) 1 appl MUCOUS MEM QID PRN; Protocol PRN Reason: Mouth Sore Pain Last Admin: 08/31/21 03:05 Dose: 1 appl Documented by: Benzocaine (Throat Lozenge, Medicated Lozenge) 1 lozenge MUCOUS MEM Q2H PRN PRN Reason: Sore Throat Calcium Carbonate (Calcium Carbonate 500 Mg Tablet) 500 mg PO DAILY [facility] Last Admin: 11/12/21 08:24 Dose: 500 mg Documented by: Calcium Carbonate (Calcium Carbonate 750 Mg Tab.Chew) 750 mg PO Q4H PRN PRN Reason: Heartburn Last Admin: 11/06/21 20:15 Dose: 750 mg Documented by: Clotrimazole (Clotrimazole 1 % Cream 15 Gm Tube) 1 appl TOPICAL BID [facility]; [place] [facility] Last Admin: 11/12/21 09:24 Dose: Not Given Documented by: [place] Butter/Zinc Oxide ([place] Butter/Zinc Oxide Supp.Rect) 1 supp [place] BEDTIME PRN PRN Reason: hemorrhoid pain Last Admin: 09/13/21 21:15 Dose: 1 supp Documented by: Cyanocobalamin (Cyanocobalamin (Vitamin B-12) 100 Mcg Tablet) 100 mcg PO DAILY [facility] Last Admin: 11/12/21 08:24 Dose: 100 mcg Documented by: Diphenhydramine HCl (Diphenhydramine Hcl 25 Mg Tablet) 50 mg PO Q6H PRN PRN Reason: eps Last Admin: 09/22/21 23:48 Dose: 50 mg Documented by: Docusate Sodium (Docusate Sodium 100 Mg Capsule) 100 mg PO BID [facility] Last Admin: 11/12/21 08:24 Dose: 100 mg Documented by: Duloxetine HCl (Duloxetine Hcl 30 Mg Capsule.Dr) 30 mg PO DAILY [facility] Last Admin: 11/12/21 08:24 Dose: 30 mg Documented by: Gabapentin (Gabapentin 400 Mg Capsule) 800 mg PO TID [facility] Last Admin: 11/12/21 14:05 Dose: 800 mg Documented by: Gabapentin (Gabapentin 100 Mg Capsule) 100 mg PO TID PRN PRN Reason: neuropathic pain Last Admin: 09/26/21 17:14 Dose: 100 mg Documented by: Lamotrigine (Lamotrigine 25 Mg Tablet) 25 mg PO BEDTIME [facility] Last Admin: 11/11/21 20:03 Dose: 25 mg Documented by: Levothyroxine Sodium (Levothyroxine Sodium 25 Mcg Tablet) 12.5 mcg PO DAILY@0600 [facility] Last Admin: 11/12/21 06:30 Dose: 12.5 mcg Documented by: Magnesium Citrate (Magnesium Citrate 300 Ml Solution) 300 ml PO DAILY PRN PRN Reason: Constipation Last Admin: 11/12/21 13:34 Dose: 300 ml Documented by: Magnesium Hydroxide (Milk Of Magnesia 30 Ml Oral.Susp) 30 ml PO DAILY PRN PRN Reason: Constipation Last Admin: 08/31/21 20:05 Dose: 30 ml Documented by: Melatonin (Melatonin 3 Mg Tablet) 9 mg PO BEDTIME [facility] Last Admin: 11/11/21 20:02 Dose: 9 mg Documented by: Multi-Ingred Cream/Lotion/Oil/Oint (Mineral Oil/Petrolatum,White 106 Gm Tube) 1 appl TOPICAL BID [facility]; Protocol Last Admin: 11/12/21 09:25 Dose: Not Given Documented by: Multivitamins/Vitamin C (Multivitamin Tablet) 1 tab PO DAILY [facility] Last Admin: 11/12/21 08:24 Dose: 1 tab Documented by: Nicotine (Nicotine 14 Mg Patch.Td24) 14 mg TRANSDERMA DAILY [facility] Last Admin: 11/12/21 08:23 Dose: 14 mg Documented by: Nicotine Polacrilex (Nicotine Polacrilex 2 Mg Gum) 4 mg BUCCAL Q1H PRN PRN Reason: Nicotine Cravings Last Admin: 11/12/21 08:24 Dose: 4 mg Documented by: Patient Own Medication (Dry Eye Relief) 1 each EYE-BOTH QID [facility] Last Admin: 11/12/21 13:34 Dose: 1 each Documented by: Omeprazole (Omeprazole 20 Mg Capsule.Dr) 20 mg PO BID@0630,1630 [facility] Last Admin: 11/12/21 06:30 Dose: 20 mg Documented by: Polyethylene Glycol (Polyethylene Glycol 3350 17 Gm Powd.Pack) 17 gm PO DAILY PRN PRN Reason: Constipation Last Admin: 11/12/21 12:37 Dose: 17 gm Documented by: Psyllium Hydrophilic Mucilloid (Psyllium Seed 3.4 Gm Powd.Pack) 3.4 gm PO DAILY [facility] Last Admin: 11/12/21 08:23 Dose: 3.4 gm Documented by: Quetiapine Fumarate (Quetiapine Fumarate 200 Mg Tablet) 200 mg PO Q6H PRN PRN Reason: anxiety/restlessness Last Admin: 09/21/21 02:38 Dose: 200 mg Documented by: Quetiapine Fumarate (Quetiapine Fumarate 100 Mg Tablet) 700 mg PO BEDTIME [facility] Last Admin: 11/11/21 20:04 Dose: 700 mg Documented by: Ropinirole HCl (Ropinirole Hcl 1 Mg Tablet) 2 mg PO DAILY@1900 [facility] Last Admin: 11/11/21 20:03 Dose: 2 mg Documented by: Senna/Docusate Sodium (Sennosides/Docusate Sodium Tablet) 1 tab PO BID [facility] Last Admin: 11/12/21 08:24 Dose: 1 tab Documented by: Simethicone (Simethicone 80 Mg Tab.Chew) 80 mg PO QIDWMHS PRN PRN Reason: indigestion Last Admin: 11/05/21 17:25 Dose: 80 mg Documented by: Sodium Chloride (Sodium Chloride 0.65 % Nasal 44 Ml Sprbtl) 1 spray NOSTRIL-B Q1H PRN PRN Reason: congestion Last Admin: 11/10/21 10:05 Dose: 1 spray Documented by: Trazodone HCl (Trazodone Hcl 25 Mg Halftab) 75 mg PO BEDTIME PRN PRN Reason: insomnia Vitamin D (Cholecalciferol (Vitamin D3) 25 Mcg Tablet) 25 mcg PO DAILY [facility] Last Admin: 11/12/21 08:24 Dose: 25 mcg Documented by: Allergies Allergies Allergy/AdvReac Type Severity Reaction Status Date / Time aripiprazole [From Abilify] Allergy Unknown Involuntary Verified 08/19/21 07:20 Spasms chlorpromazine Allergy Unknown Nausea and Verified 08/19/21 07:20 [From Thorazine] Vomiting haloperidol [From Haldol] Allergy Unknown Involuntary Verified 08/19/21 07:20 Spasms olanzapine [From Zyprexa] Allergy Unknown Involuntary Verified 08/19/21 07:20 Spasms paliperidone [From Invega] Allergy Unknown Hallucinati Verified 08/19/21 07:20 ons risperidone Allergy Unknown Involuntary Verified 08/19/21 07:20 Spasms Assessment & Plan Assessment & Plan (1) Schizoaffective disorder, bipolar type: Status: Acute Code(s): F25.0 - Schizoaffective disorder, bipolar type (2) Lumbar radiculopathy: Status: Acute Code(s): M54.16 - Radiculopathy, lumbar region (3) Hip pain, left: Status: Acute Code(s): M25.552 - Pain in left hip Plan 11/05/21: Continue current plan. Support in transition 11/06/2021: Continue current regimen and plans. No changes were made today 11/07/2021: Continue current plans and regimen. No changes were made today 11/08/21: Discontinue a.m. Seroquel 100 mg Increase p.m. Seroquel to 700 mg from 600 mg, consolidating dosages per pt request to improve mgt of daytime sedation. 11/09/21: No changes today Throat culture, COVID-19 testing, throat lozenges prn 11/10/21: R/O CKD sx. Nephrology consultation. Discontinue [place] Lamictal 25 mg hs Encourage fluids Synthroid 12.5 mcg daily 11/11/21: No regime changes today. Continue to monitor 11/12/21: Discontinue atarax, lidocaine Requip, a.m. dose, Lidocaine per pt request Change prn Seroquel to 100 mg po q 6 h prn from 200 mg po q 6h prn Continue to monitor physical symptoms I spent minutes with the patient and/or on the patient floor today, greater than?50% of which was spent counseling/coordinating care. Patient educated on: medication risk/benefits and therapeutic strategies Informed Consent: understands Reason for contiued inpatient stay Substantial Risk for: inability to function and rapid decompensation
[2021-11-12 16:37] VITALS: BP 136/72; PULSE 77; RESP 14; TEMP 36.9; O2SAT 93
[2021-11-12] MEDS: rOPINIRole HCL 1 MG TABLET 2 MG PO (18:46)
[2021-11-12] MEDS: LORazepam 0.5 MG TABLET PO (20:51)
[2021-11-12] MEDS: traZODone HCL 25 MG HALFTAB 75 MG PO (20:52)
[2021-11-12] MEDS: Melatonin 3 MG TABLET 9 MG PO (20:52)
[2021-11-12] MEDS: QUEtiapine Fumarate 100 MG TABLET 700 MG PO (20:54)
[2021-11-12] MEDS: lamoTRIgine 25 MG TABLET PO (20:54)
[2021-11-13 06:00] VITALS: BP 132/77; PULSE 74; RESP 14; TEMP 36.7; O2SAT 99
[2021-11-13] MEDS: Levothyroxine Sodium 25 MCG TABLET 12.5 MCG PO (06:19)
[2021-11-13] MEDS: Omeprazole 20 MG CAPSULE.DR PO ×2 (06:19→16:17)
[2021-11-13] MEDS: Cyanocobalamin (Vitamin B-12) 100 MCG TABLET PO (09:40)
[2021-11-13] MEDS: DULoxetine HCl 30 MG CAPSULE.DR PO (09:40)
[2021-11-13] MEDS: amLODIPine Besylate 2.5 MG TABLET PO (09:40)
[2021-11-13] MEDS: Nicotine 14 MG PATCH.TD24 TRANSDERMA (09:40)
[2021-11-13] MEDS: Docusate Sodium 100 MG CAPSULE PO ×2 (09:40→20:15)
[2021-11-13] MEDS: Multivitamin TABLET 1 TAB PO (09:40)
[2021-11-13] MEDS: Cholecalciferol (Vitamin D3) 25 MCG TABLET PO (09:40)
[2021-11-13] MEDS: Gabapentin 400 MG CAPSULE 800 MG PO ×3 (09:41→20:17)
[2021-11-13] MEDS: Nicotine Polacrilex 2 MG GUM 4 MG BUCCAL ×4 (09:41→20:15)
[2021-11-13] MEDS: Sennosides/Docusate Sodium TABLET 1 TAB PO ×2 (09:41→20:15)
[2021-11-13] MEDS: Sodium Chloride 0.65 % Nasal 44 ML SPRBTL 1 SPRAY NOSTRIL-B (09:47)
[2021-11-13] MEDS: polyethylene glycoL 3350 17 GM POWD.PACK PO (09:48)
--- NOTE | 2021-11-13 14:53 | P.PNPSI_ITS ---
Subjective Subjective Date of Service: 11/13/21 Reason For Visit: Bipolar, Schizoaffective Interim History: Patient seen and discussed with team. Patient evaluated today and upon interview she reports she is Doing okay, this place is so good to me. Asks for ativan to be increased to 1 mg at bedtime, says it really helps me to fall asleep. Reviewed EKG with her. On levothyroxine, reviewed lab work. No questions or concerns. Pt is goal oriented. In the milieu, patient is safe but isolative to her room in behavior, has books by her bed that she is reading, room is decorated. Denies SI/SIB/HI upon inquiry. Denies irritability or assaultive ideation. Says she feels safe. Medication Compliance: Yes Side effects from medications: No Attending Groups: No Review of Systems Acute medical concerns: No Medical Review of Systems: unchanged Mental Status Exam Mental Status Exam Narrative: Patient Appearance:?Disheveled Patient Orientation:?Person, Place, Time and Situation Level of Consciousness:?Alert Patient Behavior:?Talkative and Good Eye Contact Mood Description:?Anxious Affect Description:?Flat Patient Cognition Impaired:?No Ability to Follow Directions:?Good Speech Pattern:?Spontaneous Speech Memory Description:?Intact Hallucinations:?None Delusions:?Not Present Thought Process:?Distracted Thought Content:?positive for Circumstantial and positive for Tangential Depressive Symptoms:?Increased Anxiety Judgement:?Good Diagnostics Vital Signs (24Hr): Vital Signs - 24 hr 11/14/21 09:28 11/14/21 18:00 Temperature 97.8 F 97.5 F Pulse Rate 79 79 Respiratory Rate 16 Blood Pressure 139/90 H 122/78 Pulse Oximetry 96 97 BMI result Body Mass Index 38.0 Labs Results: 11/10/21 08:55 11/12/21 09:04 Imaging Radiology Impressions: ITS Impressions Abdomen Ultrasound 09/01/21 08:59 IMPRESSION: Slightly echogenic liver. Limited evaluation of the gallbladder as the patient has recently eaten. No gallstone seen. Limited visualization of the pancreas. Hip X-Ray 09/16/21 14:47 IMPRESSION: Moderate to severe left hip arthritis. Medications Medications Current Medications Acetaminophen (Acetaminophen 325 Mg Tablet) 975 mg PO Q6H PRN PRN Reason: Headache/Pain Mild Scale (1-3) Last Admin: 11/07/21 17:06 Dose: 975 mg Documented by: Al Hydroxide/Mg Hydroxide (Magnesium Hydrox/Alum Hydrox 30 Ml Oral.Susp) 30 ml PO Q6H PRN PRN Reason: Heartburn/Nausea Last Admin: 08/22/21 05:54 Dose: 30 ml Documented by: Amlodipine Besylate (Amlodipine Besylate 2.5 Mg Tablet) 2.5 mg PO DAILY [facility]; Protocol Last Admin: 11/14/21 09:20 Dose: 2.5 mg Documented by: Artificial Tears (Artificial Tears 15 Ml Drops) 2 drop EYE-BOTH Q4H PRN PRN Reason: Dry Eyes Last Admin: 10/24/21 08:47 Dose: 2 drop Documented by: Aspirin (Aspirin Enteric Coated 325 Mg Tablet.) 650 mg PO DAILY PRN PRN Reason: headache Last Admin: 09/06/21 12:18 Dose: 650 mg Documented by: Benzocaine (Benzocaine 20 % Oral Gel 9 Gm Tube) 1 appl MUCOUS MEM QID PRN; Protocol PRN Reason: Mouth Sore Pain Last Admin: 08/31/21 03:05 Dose: 1 appl Documented by: Benzocaine (Throat Lozenge, Medicated Lozenge) 1 lozenge MUCOUS MEM Q2H PRN PRN Reason: Sore Throat Calcium Carbonate (Calcium Carbonate 500 Mg Tablet) 500 mg PO DAILY [facility] Last Admin: 11/14/21 09:20 Dose: 500 mg Documented by: Calcium Carbonate (Calcium Carbonate 750 Mg Tab.Chew) 750 mg PO Q4H PRN PRN Reason: Heartburn Last Admin: 11/06/21 20:15 Dose: 750 mg Documented by: Clotrimazole (Clotrimazole 1 % Cream 15 Gm Tube) 1 appl TOPICAL BID [facility]; Protocol Last Admin: 11/14/21 19:47 Dose: Not Given Documented by: [place] Butter/Zinc Oxide ([place] Butter/Zinc Oxide Supp.Rect) 1 supp [place] BEDTIME PRN PRN Reason: hemorrhoid pain Last Admin: 09/13/21 21:15 Dose: 1 supp Documented by: Cyanocobalamin (Cyanocobalamin (Vitamin B-12) 100 Mcg Tablet) 100 mcg PO DAILY [facility] Last Admin: 11/14/21 09:20 Dose: 100 mcg Documented by: Diphenhydramine HCl (Diphenhydramine Hcl 25 Mg Tablet) 50 mg PO Q6H PRN PRN Reason: eps Last Admin: 09/22/21 23:48 Dose: 50 mg Documented by: Docusate Sodium (Docusate Sodium 100 Mg Capsule) 100 mg PO BID [facility] Last Admin: 11/14/21 20:10 Dose: 100 mg Documented by: Duloxetine HCl (Duloxetine Hcl 30 Mg Capsule.Dr) 30 mg PO DAILY [facility] Last Admin: 11/14/21 09:20 Dose: 30 mg Documented by: Gabapentin (Gabapentin 400 Mg Capsule) 800 mg PO TID [facility] Last Admin: 11/14/21 20:11 Dose: 800 mg Documented by: Gabapentin (Gabapentin 100 Mg Capsule) 100 mg PO TID PRN PRN Reason: neuropathic pain Last Admin: 09/26/21 17:14 Dose: 100 mg Documented by: Lamotrigine (Lamotrigine 25 Mg Tablet) 25 mg PO BEDTIME [facility] Last Admin: 11/14/21 20:11 Dose: 25 mg Documented by: Levothyroxine Sodium (Levothyroxine Sodium 25 Mcg Tablet) 12.5 mcg PO DAILY@0600 [facility] Last Admin: 11/14/21 09:20 Dose: 12.5 mcg Documented by: Lorazepam (Lorazepam 1 Mg Tablet) 1 mg PO DAILY PRN PRN Reason: anxiety Last Admin: 11/14/21 20:24 Dose: 1 mg Documented by: Magnesium Citrate (Magnesium Citrate 300 Ml Solution) 300 ml PO DAILY PRN PRN Reason: Constipation Last Admin: 11/14/21 18:28 Dose: 300 ml Documented by: Magnesium Hydroxide (Milk Of Magnesia 30 Ml Oral.Susp) 30 ml PO DAILY PRN PRN Reason: Constipation Last Admin: 08/31/21 20:05 Dose: 30 ml Documented by: Melatonin (Melatonin 3 Mg Tablet) 9 mg PO BEDTIME [facility] Last Admin: 11/14/21 20:12 Dose: 9 mg Documented by: Multi-Ingred Cream/Lotion/Oil/Oint (Mineral Oil/Petrolatum,White 106 Gm Tube) 1 appl TOPICAL BID [facility]; Protocol Last Admin: 11/14/21 20:18 Dose: Not Given Documented by: Multivitamins/Vitamin C (Multivitamin Tablet) 1 tab PO DAILY [facility] Last Admin: 11/14/21 09:20 Dose: 1 tab Documented by: Nicotine (Nicotine 14 Mg Patch.Td24) 14 mg TRANSDERMA DAILY [facility] Last Admin: 11/14/21 09:18 Dose: 14 mg Documented by: Nicotine Polacrilex (Nicotine Polacrilex 2 Mg Gum) 4 mg BUCCAL Q1H PRN PRN Reason: Nicotine Cravings Last Admin: 11/14/21 18:28 Dose: 4 mg Documented by: Patient Own Medication (Dry Eye Relief) 1 each EYE-BOTH QID [facility] Last Admin: 11/14/21 20:18 Dose: Not Given Documented by: Omeprazole (Omeprazole 20 Mg Capsule.Dr) 20 mg PO BID@0630,1630 [facility] Last Admin: 11/14/21 16:16 Dose: 20 mg Documented by: Polyethylene Glycol (Polyethylene Glycol 3350 17 Gm Powd.Pack) 17 gm PO DAILY PRN PRN Reason: Constipation Last Admin: 11/14/21 09:19 Dose: 17 gm Documented by: Psyllium Hydrophilic Mucilloid (Psyllium Seed 3.4 Gm Powd.Pack) 3.4 gm PO DAILY [facility] Last Admin: 11/14/21 09:19 Dose: 3.4 gm Documented by: Quetiapine Fumarate (Quetiapine Fumarate 100 Mg Tablet) 700 mg PO BEDTIME [facility] Last Admin: 11/14/21 20:10 Dose: 700 mg Documented by: Quetiapine Fumarate (Quetiapine Fumarate 100 Mg Tablet) 100 mg PO Q6H PRN PRN Reason: anxiety/restlessness Ropinirole HCl (Ropinirole Hcl 1 Mg Tablet) 2 mg PO DAILY@1900 [facility] Last Admin: 11/14/21 18:28 Dose: 2 mg Documented by: Senna/Docusate Sodium (Sennosides/Docusate Sodium Tablet) 1 tab PO BID [facility] Last Admin: 11/14/21 20:11 Dose: 1 tab Documented by: Simethicone (Simethicone 80 Mg Tab.Chew) 80 mg PO QIDWMHS PRN PRN Reason: indigestion Last Admin: 11/14/21 18:37 Dose: 80 mg Documented by: Sodium Chloride (Sodium Chloride 0.65 % Nasal 44 Ml Sprbtl) 1 spray NOSTRIL-B Q1H PRN PRN Reason: congestion Last Admin: 11/14/21 09:25 Dose: 1 spray Documented by: Trazodone HCl (Trazodone Hcl 25 Mg Halftab) 75 mg PO BEDTIME PRN PRN Reason: insomnia Last Admin: 11/14/21 20:24 Dose: 75 mg Documented by: Vitamin D (Cholecalciferol (Vitamin D3) 25 Mcg Tablet) 25 mcg PO DAILY [facility] Last Admin: 11/14/21 09:20 Dose: 25 mcg Documented by: Allergies Allergies Allergy/AdvReac Type Severity Reaction Status Date / Time aripiprazole [From Abilify] Allergy Unknown Involuntary Verified 08/19/21 07:20 Spasms chlorpromazine Allergy Unknown Nausea and Verified 08/19/21 07:20 [From Thorazine] Vomiting haloperidol [From Haldol] Allergy Unknown Involuntary Verified 08/19/21 07:20 Spasms olanzapine [From Zyprexa] Allergy Unknown Involuntary Verified 08/19/21 07:20 Spasms paliperidone [From Invega] Allergy Unknown Hallucinati Verified 08/19/21 07:20 ons risperidone Allergy Unknown Involuntary Verified 08/19/21 07:20 Spasms Assessment & Plan Assessment & Plan (1) Schizoaffective disorder, bipolar type: Status: Acute Code(s): F25.0 - Schizoaffective disorder, bipolar type (2) Lumbar radiculopathy: Status: Acute Code(s): M54.16 - Radiculopathy, lumbar region (3) Hip pain, left: Status: Acute Code(s): M25.552 - Pain in left hip Plan 11/05/21: Continue current plan. Support in transition 11/06/2021: Continue current regimen and plans. No changes were made today 11/07/2021: Continue current plans and regimen. No changes were made today 11/08/21: Discontinue a.m. Seroquel 100 mg Increase p.m. Seroquel to 700 mg from 600 mg, consolidating dosages per pt request to improve mgt of daytime sedation. 11/09/21: No changes today Throat culture, COVID-19 testing, throat lozenges prn 11/10/21: R/O CKD sx. Nephrology consultation. Discontinue [employer] Lamictal 25 mg hs Encourage fluids Synthroid 12.5 mcg daily 11/11/21: No regime changes today. Continue to monitor 11/12/21: Discontinue atarax, lidocaine Requip, a.m. dose, Lidocaine per pt request Change prn Seroquel to 100 mg po q 6 h prn from 200 mg po q 6h prn Continue to monitor physical symptoms 11/13/21: No medication changes I spent minutes with the patient and/or on the patient floor today, greater than?50% of which was spent counseling/coordinating care. Reason for contiued inpatient stay Substantial Risk for: rapid decompensation and med/psych decompensation
[2021-11-13] MEDS: rOPINIRole HCL 1 MG TABLET 2 MG PO (17:20)
[2021-11-13 18:00] VITALS: BP 128/84; PULSE 69; RESP 16; TEMP 36.6; O2SAT 99
[2021-11-13] MEDS: Melatonin 3 MG TABLET 9 MG PO (20:15)
[2021-11-13] MEDS: QUEtiapine Fumarate 100 MG TABLET 700 MG PO (20:16)
[2021-11-13] MEDS: traZODone HCL 25 MG HALFTAB 75 MG PO (20:16)
[2021-11-13] MEDS: LORazepam 0.5 MG TABLET PO (20:17)
[2021-11-13] MEDS: lamoTRIgine 25 MG TABLET PO (20:17)
[2021-11-14] MEDS: Nicotine 14 MG PATCH.TD24 TRANSDERMA (09:18)
[2021-11-14] MEDS: polyethylene glycoL 3350 17 GM POWD.PACK PO (09:19)
[2021-11-14] MEDS: Nicotine Polacrilex 2 MG GUM 4 MG BUCCAL ×3 (09:19→18:28)
[2021-11-14] MEDS: Docusate Sodium 100 MG CAPSULE PO ×2 (09:20→20:10)
[2021-11-14] MEDS: Cholecalciferol (Vitamin D3) 25 MCG TABLET PO (09:20)
[2021-11-14] MEDS: Gabapentin 400 MG CAPSULE 800 MG PO ×3 (09:20→20:11)
[2021-11-14] MEDS: amLODIPine Besylate 2.5 MG TABLET PO (09:20)
[2021-11-14] MEDS: Sennosides/Docusate Sodium TABLET 1 TAB PO ×2 (09:20→20:11)
[2021-11-14] MEDS: Omeprazole 20 MG CAPSULE.DR PO ×2 (09:20→16:16)
[2021-11-14] MEDS: Levothyroxine Sodium 25 MCG TABLET 12.5 MCG PO (09:20)
[2021-11-14] MEDS: DULoxetine HCl 30 MG CAPSULE.DR PO (09:20)
[2021-11-14] MEDS: Cyanocobalamin (Vitamin B-12) 100 MCG TABLET PO (09:20)
[2021-11-14] MEDS: Multivitamin TABLET 1 TAB PO (09:20)
[2021-11-14] MEDS: Sodium Chloride 0.65 % Nasal 44 ML SPRBTL 1 SPRAY NOSTRIL-B (09:25)
[2021-11-14 09:28] VITALS: BP 139/90; PULSE 79; RESP 16; TEMP 36.6; O2SAT 96
[2021-11-14] MEDS: Simethicone 80 MG TAB.CHEW PO ×2 (14:51→18:37)
[2021-11-14 18:00] VITALS: BP 122/78; PULSE 79; TEMP 36.4; O2SAT 97
[2021-11-14] MEDS: rOPINIRole HCL 1 MG TABLET 2 MG PO (18:28)
[2021-11-14] MEDS: Magnesium Citrate 300 ML SOLUTION PO (18:28)
--- NOTE | 2021-11-14 18:51 | P.PNPSI_ITS ---
Subjective Subjective Date of Service: 11/14/21 Reason For Visit: Bipolar, Schizoaffective Interim History: Patient seen and discussed with team. Patient evaluated today and upon interview she reports she feels alright, again says she is having a hard time falling asleep and asks for an increase in ativan. She is reading books, eating okay. Energy is okay. Feeling safe. In the milieu, patient is safe and appropriate in behavior. Denies SI/SIB/HI upon inquiry. Denies irritability or assaultive ideation. Says he feels safe. Medication Compliance: Yes Side effects from medications: No Attending Groups: No Review of Systems Acute medical concerns: No Medical Review of Systems: unchanged Mental Status Exam Mental Status Exam Narrative: Patient Appearance:?Disheveled Patient Orientation:?Person, Place, Time and Situation Level of Consciousness:?Alert Patient Behavior:?Talkative and Good Eye Contact Mood Description:?Anxious Affect Description:?Flat Patient Cognition Impaired:?No Ability to Follow Directions:?Good Speech Pattern:?Spontaneous Speech Memory Description:?Intact Hallucinations:?None Delusions:?Not Present Thought Process:?Distracted Thought Content:?positive for Circumstantial and positive for Tangential Depressive Symptoms:?Increased Anxiety Judgement:?Good Diagnostics Vital Signs (24Hr): Vital Signs - 24 hr 11/14/21 09:28 11/14/21 18:00 Temperature 97.8 F 97.5 F Pulse Rate 79 79 Respiratory Rate 16 Blood Pressure 139/90 H 122/78 Pulse Oximetry 96 97 BMI result Body Mass Index 38.0 Labs Results: 11/10/21 08:55 11/12/21 09:04 Imaging Radiology Impressions: ITS Impressions Abdomen Ultrasound 09/01/21 08:59 IMPRESSION: Slightly echogenic liver. Limited evaluation of the gallbladder as the patient has recently eaten. No gallstone seen. Limited visualization of the pancreas. Hip X-Ray 09/16/21 14:47 IMPRESSION: Moderate to severe left hip arthritis. Medications Medications Current Medications Acetaminophen (Acetaminophen 325 Mg Tablet) 975 mg PO Q6H PRN PRN Reason: Headache/Pain Mild Scale (1-3) Last Admin: 11/07/21 17:06 Dose: 975 mg Documented by: Al Hydroxide/Mg Hydroxide (Magnesium Hydrox/Alum Hydrox 30 Ml Oral.Susp) 30 ml PO Q6H PRN PRN Reason: Heartburn/Nausea Last Admin: 08/22/21 05:54 Dose: 30 ml Documented by: Amlodipine Besylate (Amlodipine Besylate 2.5 Mg Tablet) 2.5 mg PO DAILY [facility]; Protocol Last Admin: 11/14/21 09:20 Dose: 2.5 mg Documented by: Artificial Tears (Artificial Tears 15 Ml Drops) 2 drop EYE-BOTH Q4H PRN PRN Reason: Dry Eyes Last Admin: 10/24/21 08:47 Dose: 2 drop Documented by: Aspirin (Aspirin Enteric Coated 325 Mg Tablet.Dr) 650 mg PO DAILY PRN PRN Reason: headache Last Admin: 09/06/21 12:18 Dose: 650 mg Documented by: Benzocaine (Benzocaine 20 % Oral Gel 9 Gm Tube) 1 appl MUCOUS MEM QID PRN; Protocol PRN Reason: Mouth Sore Pain Last Admin: 08/31/21 03:05 Dose: 1 appl Documented by: Benzocaine (Throat Lozenge, Medicated Lozenge) 1 lozenge MUCOUS MEM Q2H PRN PRN Reason: Sore Throat Calcium Carbonate (Calcium Carbonate 500 Mg Tablet) 500 mg PO DAILY [facility] Last Admin: 11/14/21 09:20 Dose: 500 mg Documented by: Calcium Carbonate (Calcium Carbonate 750 Mg Tab.Chew) 750 mg PO Q4H PRN PRN Reason: Heartburn Last Admin: 11/06/21 20:15 Dose: 750 mg Documented by: Clotrimazole (Clotrimazole 1 % Cream 15 Gm Tube) 1 appl TOPICAL BID [facility]; Protocol Last Admin: 11/14/21 19:47 Dose: Not Given Documented by: [place] Butter/Zinc Oxide ([place] Butter/Zinc Oxide Supp.Rect) 1 supp [place] BEDTIME PRN PRN Reason: hemorrhoid pain Last Admin: 09/13/21 21:15 Dose: 1 supp Documented by: Cyanocobalamin (Cyanocobalamin (Vitamin B-12) 100 Mcg Tablet) 100 mcg PO DAILY [facility] Last Admin: 11/14/21 09:20 Dose: 100 mcg Documented by: Diphenhydramine HCl (Diphenhydramine Hcl 25 Mg Tablet) 50 mg PO Q6H PRN PRN Reason: eps Last Admin: 09/22/21 23:48 Dose: 50 mg Documented by: Docusate Sodium (Docusate Sodium 100 Mg Capsule) 100 mg PO BID [facility] Last Admin: 11/14/21 20:10 Dose: 100 mg Documented by: Duloxetine HCl (Duloxetine Hcl 30 Mg Capsule.) 30 mg PO DAILY [facility] Last Admin: 11/14/21 09:20 Dose: 30 mg Documented by: Gabapentin (Gabapentin 400 Mg Capsule) 800 mg PO TID [facility] Last Admin: 11/14/21 20:11 Dose: 800 mg Documented by: Gabapentin (Gabapentin 100 Mg Capsule) 100 mg PO TID PRN PRN Reason: neuropathic pain Last Admin: 09/26/21 17:14 Dose: 100 mg Documented by: Lamotrigine (Lamotrigine 25 Mg Tablet) 25 mg PO BEDTIME [facility] Last Admin: 11/14/21 20:11 Dose: 25 mg Documented by: Levothyroxine Sodium (Levothyroxine Sodium 25 Mcg Tablet) 12.5 mcg PO DAILY@0600 [facility] Last Admin: 11/15/21 06:38 Dose: 12.5 mcg Documented by: Lorazepam (Lorazepam 1 Mg Tablet) 1 mg PO DAILY PRN PRN Reason: anxiety Last Admin: 11/14/21 20:24 Dose: 1 mg Documented by: Magnesium Citrate (Magnesium Citrate 300 Ml Solution) 300 ml PO DAILY PRN PRN Reason: Constipation Last Admin: 11/14/21 18:28 Dose: 300 ml Documented by: Magnesium Hydroxide (Milk Of Magnesia 30 Ml Oral.Susp) 30 ml PO DAILY PRN PRN Reason: Constipation Last Admin: 08/31/21 20:05 Dose: 30 ml Documented by: Melatonin (Melatonin 3 Mg Tablet) 9 mg PO BEDTIME [facility] Last Admin: 11/14/21 20:12 Dose: 9 mg Documented by: Multi-Ingred Cream/Lotion/Oil/Oint (Mineral Oil/Petrolatum,White 106 Gm Tube) 1 appl TOPICAL BID [facility]; Protocol Last Admin: 11/14/21 20:18 Dose: Not Given Documented by: Multivitamins/Vitamin C (Multivitamin Tablet) 1 tab PO DAILY [facility] Last Admin: 11/14/21 09:20 Dose: 1 tab Documented by: Nicotine (Nicotine 14 Mg Patch.Td24) 14 mg TRANSDERMA DAILY [facility] Last Admin: 11/14/21 09:18 Dose: 14 mg Documented by: Nicotine Polacrilex (Nicotine Polacrilex 2 Mg Gum) 4 mg BUCCAL Q1H PRN PRN Reason: Nicotine Cravings Last Admin: 11/14/21 18:28 Dose: 4 mg Documented by: Patient Own Medication (Dry Eye Relief) 1 each EYE-BOTH QID [facility] Last Admin: 11/14/21 20:18 Dose: Not Given Documented by: Omeprazole (Omeprazole 20 Mg Capsule.Dr) 20 mg PO BID@0630,1630 [facility] Last Admin: 11/15/21 07:42 Dose: 20 mg Documented by: Polyethylene Glycol (Polyethylene Glycol 3350 17 Gm Powd.Pack) 17 gm PO DAILY PRN PRN Reason: Constipation Last Admin: 11/14/21 09:19 Dose: 17 gm Documented by: Psyllium Hydrophilic Mucilloid (Psyllium Seed 3.4 Gm Powd.Pack) 3.4 gm PO DAILY [facility] Last Admin: 11/14/21 09:19 Dose: 3.4 gm Documented by: Quetiapine Fumarate (Quetiapine Fumarate 100 Mg Tablet) 700 mg PO BEDTIME [facility] Last Admin: 11/14/21 20:10 Dose: 700 mg Documented by: Quetiapine Fumarate (Quetiapine Fumarate 100 Mg Tablet) 100 mg PO Q6H PRN PRN Reason: anxiety/restlessness Ropinirole HCl (Ropinirole Hcl 1 Mg Tablet) 2 mg PO DAILY@1900 [facility] Last Admin: 11/14/21 18:28 Dose: 2 mg Documented by: Senna/Docusate Sodium (Sennosides/Docusate Sodium Tablet) 1 tab PO BID [facility] Last Admin: 11/14/21 20:11 Dose: 1 tab Documented by: Simethicone (Simethicone 80 Mg Tab.Chew) 80 mg PO QIDWMHS PRN PRN Reason: indigestion Last Admin: 11/14/21 18:37 Dose: 80 mg Documented by: Sodium Chloride (Sodium Chloride 0.65 % Nasal 44 Ml Sprbtl) 1 spray NOSTRIL-B Q1H PRN PRN Reason: congestion Last Admin: 11/14/21 09:25 Dose: 1 spray Documented by: Trazodone HCl (Trazodone Hcl 25 Mg Halftab) 75 mg PO BEDTIME PRN PRN Reason: insomnia Last Admin: 11/14/21 20:24 Dose: 75 mg Documented by: Vitamin D (Cholecalciferol (Vitamin D3) 25 Mcg Tablet) 25 mcg PO DAILY [facility] Last Admin: 11/14/21 09:20 Dose: 25 mcg Documented by: Allergies Allergies Allergy/AdvReac Type Severity Reaction Status Date / Time aripiprazole [From Abilify] Allergy Unknown Involuntary Verified 08/19/21 07:20 Spasms chlorpromazine Allergy Unknown Nausea and Verified 08/19/21 07:20 [From Thorazine] Vomiting haloperidol [From Haldol] Allergy Unknown Involuntary Verified 08/19/21 07:20 Spasms olanzapine [From Zyprexa] Allergy Unknown Involuntary Verified 08/19/21 07:20 Spasms paliperidone [From Invega] Allergy Unknown Hallucinati Verified 08/19/21 07:20 ons risperidone Allergy Unknown Involuntary Verified 08/19/21 07:20 Spasms Assessment & Plan Assessment & Plan (1) Schizoaffective disorder, bipolar type: Status: Acute Code(s): F25.0 - Schizoaffective disorder, bipolar type (2) Lumbar radiculopathy: Status: Acute Code(s): M54.16 - Radiculopathy, lumbar region (3) Hip pain, left: Status: Acute Code(s): M25.552 - Pain in left hip Plan 11/05/21: Continue current plan. Support in transition 11/06/2021: Continue current regimen and plans. No changes were made today 11/07/2021: Continue current plans and regimen. No changes were made today 11/08/21: Discontinue a.m. Seroquel 100 mg Increase p.m. Seroquel to 700 mg from 600 mg, consolidating dosages per pt request to improve mgt of daytime sedation. 11/09/21: No changes today Throat culture, COVID-19 testing, throat lozenges prn 11/10/21: R/O CKD sx. Nephrology consultation. Discontinue [place] Lamictal 25 mg hs Encourage fluids Synthroid 12.5 mcg daily 11/11/21: No regime changes today. Continue to monitor 11/12/21: Discontinue atarax, lidocaine Requip, a.m. dose, Lidocaine per pt request Change prn Seroquel to 100 mg po q 6 h prn from 200 mg po q 6h prn Continue to monitor physical symptoms 11/13/21: No medication changes 11/14/21: increase ativan to 1 mg QHS for sleep, anxiety I spent minutes with the patient and/or on the patient floor today, greater than?50% of which was spent counseling/coordinating care. Patient educated on: medication risk/benefits Reason for contiued inpatient stay Substantial Risk for: med/psych decompensation
[2021-11-14] MEDS: QUEtiapine Fumarate 100 MG TABLET 700 MG PO (20:10)
[2021-11-14] MEDS: lamoTRIgine 25 MG TABLET PO (20:11)
[2021-11-14] MEDS: Melatonin 3 MG TABLET 9 MG PO (20:12)
[2021-11-14] MEDS: LORazepam 1 MG TABLET PO (20:24)
[2021-11-14] MEDS: traZODone HCL 25 MG HALFTAB 75 MG PO (20:24)
[2021-11-15] MEDS: Levothyroxine Sodium 25 MCG TABLET 12.5 MCG PO (06:38)
[2021-11-15] MEDS: Omeprazole 20 MG CAPSULE.DR PO ×2 (07:42→17:22)
[2021-11-15 09:15] VITALS: BP 138/84; PULSE 78; TEMP 37
[2021-11-15] MEDS: polyethylene glycoL 3350 17 GM POWD.PACK PO (09:31)
[2021-11-15] MEDS: Artificial Tears 15 ML DROPS 2 DROP EYE-BOTH (09:32)
[2021-11-15] MEDS: Mineral Oil/Petrolatum,White 106 GM Tube 1 APPL TOPICAL (09:32)
[2021-11-15] MEDS: Multivitamin TABLET 1 TAB PO (09:33)
[2021-11-15] MEDS: amLODIPine Besylate 2.5 MG TABLET PO (09:33)
[2021-11-15] MEDS: Cyanocobalamin (Vitamin B-12) 100 MCG TABLET PO (09:33)
[2021-11-15] MEDS: Nicotine 14 MG PATCH.TD24 TRANSDERMA (09:33)
[2021-11-15] MEDS: Docusate Sodium 100 MG CAPSULE PO ×2 (09:33→21:40)
[2021-11-15] MEDS: Nicotine Polacrilex 2 MG GUM 4 MG BUCCAL ×3 (09:33→20:21)
[2021-11-15] MEDS: Sodium Chloride 0.65 % Nasal 44 ML SPRBTL 1 SPRAY NOSTRIL-B (09:33)
[2021-11-15] MEDS: Sennosides/Docusate Sodium TABLET 1 TAB PO ×2 (09:33→21:41)
[2021-11-15] MEDS: Cholecalciferol (Vitamin D3) 25 MCG TABLET PO (09:34)
[2021-11-15] MEDS: Gabapentin 400 MG CAPSULE 800 MG PO ×3 (09:34→21:41)
[2021-11-15] MEDS: DULoxetine HCl 30 MG CAPSULE.DR PO (09:34)
[2021-11-15] MEDS: Acetaminophen 325 MG TABLET 975 MG PO (09:54)
[2021-11-15] MEDS: Simethicone 80 MG TAB.CHEW PO (14:13)
--- NOTE | 2021-11-15 16:15 | HO.PSYCHPN ---
Subjective Subjective Date of Service: 11/15/21 Reason For Visit: Bipolar, Schizoaffective Subjective Notes: Conditional Voluntary Healthcare Proxy: No Guardianship: No Medical Problems Affecting Mental Status: No Interim History: I am feeling better. Blanca reports a good weekend and no current medical symptoms. She states she does feel anxious about upcoming discharge-- I know it is coming and expresses gratitude for the care she has received during her stay. Denies chest pain, denies fatigue, but reports at times it is difficult to ambulate as her legs feel stiff. Reports sleep and appetite are intact. Medication Compliance: Yes Side effects from medications: No Attending Groups: No Review of Systems Acute medical concerns: No Medical Review of Systems: unchanged Review of Systems Psychiatric: Reports anxiety (discharge related anxiety) Mental Status Exam Mental Status Exam Patient Appearance: Appropriate Patient Orientation: Person, Place, Time and Situation Level of Consciousness: Alert Patient Behavior: Appropriate, Talkative, Cooperative and Good Eye Contact Mood Description: Apprehensive Affect Description: Constricted Patient Cognition Impaired: No Ability to Follow Directions: Good Speech Pattern: Spontaneous Speech Memory Description: Intact Hallucinations: Auditory (baseline sx) and Visual (baseline sx) Delusions: Present (baseline sx) Perceptual Disturbances: Derealization Thought Process: Distracted and Goal Oriented Thought Content: positive for Goal Oriented, positive for Tangential and positive for Suicidal Ideation (denies) Judgement: Good Diagnostics Vital Signs (24Hr): Vital Signs - 24 hr 11/14/21 18:00 11/15/21 09:15 Temperature 97.5 F 98.6 F Pulse Rate 79 78 Blood Pressure 122/78 138/84 Pulse Oximetry 97 BMI result Body Mass Index 38.0 Labs Results: 11/10/21 08:55 11/12/21 09:04 Imaging Radiology Impressions: ITS Impressions Abdomen Ultrasound 09/01/21 08:59 IMPRESSION: Slightly echogenic liver. Limited evaluation of the gallbladder as the patient has recently eaten. No gallstone seen. Limited visualization of the pancreas. Hip X-Ray 09/16/21 14:47 IMPRESSION: Moderate to severe left hip arthritis. Medications Medications Current Medications Acetaminophen (Acetaminophen 325 Mg Tablet) 975 mg PO Q6H PRN PRN Reason: Headache/Pain Mild Scale (1-3) Last Admin: 11/15/21 09:54 Dose: 975 mg Documented by: Al Hydroxide/Mg Hydroxide (Magnesium Hydrox/Alum Hydrox 30 Ml Oral.Susp) 30 ml PO Q6H PRN PRN Reason: Heartburn/Nausea Last Admin: 08/22/21 05:54 Dose: 30 ml Documented by: Amlodipine Besylate (Amlodipine Besylate 2.5 Mg Tablet) 2.5 mg PO DAILY [facility]; Protocol Last Admin: 11/15/21 09:33 Dose: 2.5 mg Documented by: Artificial Tears (Artificial Tears 15 Ml Drops) 2 drop EYE-BOTH Q4H PRN PRN Reason: Dry Eyes Last Admin: 11/15/21 09:32 Dose: 2 drop Documented by: Aspirin (Aspirin Enteric Coated 325 Mg Tablet.Dr) 650 mg PO DAILY PRN PRN Reason: headache Last Admin: 09/06/21 12:18 Dose: 650 mg Documented by: Benzocaine (Benzocaine 20 % Oral Gel 9 Gm Tube) 1 appl MUCOUS MEM QID PRN; Protocol PRN Reason: Mouth Sore Pain Last Admin: 08/31/21 03:05 Dose: 1 appl Documented by: Benzocaine (Throat Lozenge, Medicated Lozenge) 1 lozenge MUCOUS MEM Q2H PRN PRN Reason: Sore Throat Calcium Carbonate (Calcium Carbonate 500 Mg Tablet) 500 mg PO DAILY [facility] Last Admin: 11/15/21 09:33 Dose: 500 mg Documented by: Calcium Carbonate (Calcium Carbonate 750 Mg Tab.Chew) 750 mg PO Q4H PRN PRN Reason: Heartburn Last Admin: 11/06/21 20:15 Dose: 750 mg Documented by: Clotrimazole (Clotrimazole 1 % Cream 15 Gm Tube) 1 appl TOPICAL BID [facility]; Protocol Last Admin: 11/15/21 09:44 Dose: Not Given Documented by: [place] Butter/Zinc Oxide ([place] Butter/Zinc Oxide Supp.Rect) 1 supp [place] BEDTIME PRN PRN Reason: hemorrhoid pain Last Admin: 09/13/21 21:15 Dose: 1 supp Documented by: Cyanocobalamin (Cyanocobalamin (Vitamin B-12) 100 Mcg Tablet) 100 mcg PO DAILY [facility] Last Admin: 11/15/21 09:33 Dose: 100 mcg Documented by: Diphenhydramine HCl (Diphenhydramine Hcl 25 Mg Tablet) 50 mg PO Q6H PRN PRN Reason: eps Last Admin: 09/22/21 23:48 Dose: 50 mg Documented by: Docusate Sodium (Docusate Sodium 100 Mg Capsule) 100 mg PO BID [facility] Last Admin: 11/15/21 09:33 Dose: 100 mg Documented by: Duloxetine HCl (Duloxetine Hcl 30 Mg Capsule.) 30 mg PO DAILY [facility] Last Admin: 11/15/21 09:34 Dose: 30 mg Documented by: Gabapentin (Gabapentin 400 Mg Capsule) 800 mg PO TID [facility] Last Admin: 11/15/21 14:13 Dose: 800 mg Documented by: Gabapentin (Gabapentin 100 Mg Capsule) 100 mg PO TID PRN PRN Reason: neuropathic pain Last Admin: 09/26/21 17:14 Dose: 100 mg Documented by: Lamotrigine (Lamotrigine 25 Mg Tablet) 25 mg PO BEDTIME [facility] Last Admin: 11/14/21 20:11 Dose: 25 mg Documented by: Levothyroxine Sodium (Levothyroxine Sodium 25 Mcg Tablet) 12.5 mcg PO DAILY@0600 [facility] Last Admin: 11/15/21 06:38 Dose: 12.5 mcg Documented by: Lorazepam (Lorazepam 1 Mg Tablet) 1 mg PO DAILY PRN PRN Reason: anxiety Last Admin: 11/14/21 20:24 Dose: 1 mg Documented by: Magnesium Citrate (Magnesium Citrate 300 Ml Solution) 300 ml PO DAILY PRN PRN Reason: Constipation Last Admin: 11/14/21 18:28 Dose: 300 ml Documented by: Magnesium Hydroxide (Milk Of Magnesia 30 Ml Oral.Susp) 30 ml PO DAILY PRN PRN Reason: Constipation Last Admin: 08/31/21 20:05 Dose: 30 ml Documented by: Melatonin (Melatonin 3 Mg Tablet) 9 mg PO BEDTIME [facility] Last Admin: 11/14/21 20:12 Dose: 9 mg Documented by: Multi-Ingred Cream/Lotion/Oil/Oint (Mineral Oil/Petrolatum,White 106 Gm Tube) 1 appl TOPICAL BID [facility]; Protocol Last Admin: 11/15/21 09:32 Dose: 1 appl Documented by: Multivitamins/Vitamin C (Multivitamin Tablet) 1 tab PO DAILY [facility] Last Admin: 11/15/21 09:33 Dose: 1 tab Documented by: Nicotine (Nicotine 14 Mg Patch.Td24) 14 mg TRANSDERMA DAILY [facility] Last Admin: 03/28/22 09:33 Dose: 14 mg Documented by: Nicotine Polacrilex (Nicotine Polacrilex 2 Mg Gum) 4 mg BUCCAL Q1H PRN PRN Reason: Nicotine Cravings Last Admin: 11/15/21 14:13 Dose: 4 mg Documented by: Patient Own Medication (Dry Eye Relief) 1 each EYE-BOTH QID [facility] Last Admin: 11/15/21 13:12 Dose: 1 each Documented by: Omeprazole (Omeprazole 20 Mg Capsule.Dr) 20 mg PO BID@0630,1630 [facility] Last Admin: 11/15/21 07:42 Dose: 20 mg Documented by: Polyethylene Glycol (Polyethylene Glycol 3350 17 Gm Powd.Pack) 17 gm PO DAILY PRN PRN Reason: Constipation Last Admin: 11/15/21 09:31 Dose: 17 gm Documented by: Psyllium Hydrophilic Mucilloid (Psyllium Seed 3.4 Gm Powd.Pack) 3.4 gm PO DAILY [facility] Last Admin: 11/15/21 09:32 Dose: 3.4 gm Documented by: Quetiapine Fumarate (Quetiapine Fumarate 100 Mg Tablet) 700 mg PO BEDTIME [facility] Last Admin: 11/14/21 20:10 Dose: 700 mg Documented by: Quetiapine Fumarate (Quetiapine Fumarate 100 Mg Tablet) 100 mg PO Q6H PRN PRN Reason: anxiety/restlessness Ropinirole HCl (Ropinirole Hcl 1 Mg Tablet) 2 mg PO DAILY@1900 [facility] Last Admin: 11/14/21 18:28 Dose: 2 mg Documented by: Senna/Docusate Sodium (Sennosides/Docusate Sodium Tablet) 1 tab PO BID [facility] Last Admin: 11/15/21 09:33 Dose: 1 tab Documented by: Simethicone (Simethicone 80 Mg Tab.Chew) 80 mg PO QIDWMHS PRN PRN Reason: indigestion Last Admin: 11/15/21 14:13 Dose: 80 mg Documented by: Sodium Chloride (Sodium Chloride 0.65 % Nasal 44 Ml Sprbtl) 1 spray NOSTRIL-B Q1H PRN PRN Reason: congestion Last Admin: 11/15/21 09:33 Dose: 1 spray Documented by: Trazodone HCl (Trazodone Hcl 25 Mg Halftab) 75 mg PO BEDTIME PRN PRN Reason: insomnia Last Admin: 11/14/21 20:24 Dose: 75 mg Documented by: Vitamin D (Cholecalciferol (Vitamin D3) 25 Mcg Tablet) 25 mcg PO DAILY [facility] Last Admin: 11/15/21 09:34 Dose: 25 mcg Documented by: Allergies Allergies Allergy/AdvReac Type Severity Reaction Status Date / Time aripiprazole [From Abilify] Allergy Unknown Involuntary Verified 08/19/21 07:20 Spasms chlorpromazine Allergy Unknown Nausea and Verified 08/19/21 07:20 [From Thorazine] Vomiting haloperidol [From Haldol] Allergy Unknown Involuntary Verified 08/19/21 07:20 Spasms olanzapine [From Zyprexa] Allergy Unknown Involuntary Verified 08/19/21 07:20 Spasms paliperidone [From Invega] Allergy Unknown Hallucinati Verified 08/19/21 07:20 ons risperidone Allergy Unknown Involuntary Verified 08/19/21 07:20 Spasms Assessment & Plan Assessment & Plan (1) Schizoaffective disorder, bipolar type: Status: Acute Code(s): F25.0 - Schizoaffective disorder, bipolar type (2) Lumbar radiculopathy: Status: Acute Code(s): M54.16 - Radiculopathy, lumbar region (3) Hip pain, left: Status: Acute Code(s): M25.552 - Pain in left hip Plan 11/05/21: Continue current plan. Support in transition 11/06/2021: Continue current regimen and plans. No changes were made today 11/07/2021: Continue current plans and regimen. No changes were made today 11/08/21: Discontinue a.m. Seroquel 100 mg Increase p.m. Seroquel to 700 mg from 600 mg, consolidating dosages per pt request to improve mgt of daytime sedation. 11/09/21: No changes today Throat culture, COVID-19 testing, throat lozenges prn 11/10/21: R/O CKD sx. Nephrology consultation. Discontinue Adel Lamictal 25 mg hs Encourage fluids Synthroid 12.5 mcg daily 11/11/21: No regime changes today. Continue to monitor 11/12/21: Discontinue atarax, lidocaine Requip, a.m. dose, Lidocaine per pt request Change prn Seroquel to 100 mg po q 6 h prn from 200 mg po q 6h prn Continue to monitor physical symptoms 11/13/21: No medication changes 11/14/21: increase ativan to 1 mg QHS for sleep, anxiety 11/15/21: No medication changes today I spent minutes with the patient and/or on the patient floor today, greater than?50% of which was spent counseling/coordinating care. Patient educated on: therapeutic strategies Informed Consent: understands and further education needed Reason for contiued inpatient stay Substantial Risk for: inability to function and rapid decompensation
[2021-11-15 16:40] VITALS: BP 134/78; PULSE 89; TEMP 36.6
[2021-11-15] MEDS: rOPINIRole HCL 1 MG TABLET 2 MG PO (19:08)
[2021-11-15] MEDS: traZODone HCL 25 MG HALFTAB 75 MG PO (21:38)
[2021-11-15] MEDS: Melatonin 3 MG TABLET 9 MG PO (21:39)
[2021-11-15] MEDS: lamoTRIgine 25 MG TABLET PO (21:39)
[2021-11-15] MEDS: LORazepam 1 MG TABLET PO (21:40)
[2021-11-15] MEDS: QUEtiapine Fumarate 100 MG TABLET 700 MG PO (21:42)
[2021-11-16] MEDS: Omeprazole 20 MG CAPSULE.DR PO (06:19)
[2021-11-16] MEDS: Levothyroxine Sodium 25 MCG TABLET 12.5 MCG PO (06:19)
[2021-11-16] MEDS: Nicotine Polacrilex 2 MG GUM 4 MG BUCCAL ×3 (09:38→19:31)
[2021-11-16] MEDS: Nicotine 14 MG PATCH.TD24 TRANSDERMA (09:38)
[2021-11-16] MEDS: amLODIPine Besylate 2.5 MG TABLET PO (09:38)
[2021-11-16] MEDS: polyethylene glycoL 3350 17 GM POWD.PACK PO (09:38)
[2021-11-16] MEDS: Cyanocobalamin (Vitamin B-12) 100 MCG TABLET PO (09:39)
[2021-11-16] MEDS: Cholecalciferol (Vitamin D3) 25 MCG TABLET PO (09:39)
[2021-11-16] MEDS: Docusate Sodium 100 MG CAPSULE PO ×2 (09:39→19:28)
[2021-11-16] MEDS: DULoxetine HCl 30 MG CAPSULE.DR PO (09:39)
[2021-11-16] MEDS: Multivitamin TABLET 1 TAB PO (09:39)
[2021-11-16] MEDS: Sennosides/Docusate Sodium TABLET 1 TAB PO ×2 (09:39→19:29)
[2021-11-16] MEDS: Gabapentin 400 MG CAPSULE 800 MG PO ×3 (09:39→19:28)
[2021-11-16 09:45] VITALS: BP 134/76; PULSE 97; RESP 16; TEMP 36; O2SAT 96
[2021-11-16 18:00] VITALS: BP 139/89; PULSE 101
--- NOTE | 2021-11-16 18:26 | P.PNPSI_ITS ---
Subjective Subjective Date of Service: 11/17/21 Reason For Visit: Bipolar, Schizoaffective Interim History: Blanca reports no medical sx today. She discussed moving forward to her next home and what she has learned thus far while in hospital. She expressed sadness in having her room-mate leave as she felt they have a positive connection. She continues to wait for bed availability from respite services. Medication Compliance: Yes Side effects from medications: No Attending Groups: Yes Review of Systems Acute medical concerns: No Medical Review of Systems: unchanged Review of Systems Psychiatric: Reports anxiety (discharge related anxiety) Mental Status Exam Mental Status Exam Patient Appearance: Appropriate Patient Orientation: Person, Place, Time and Situation Level of Consciousness: Alert Patient Behavior: Appropriate, Talkative, Cooperative and Good Eye Contact Mood Description: Apprehensive Affect Description: Constricted Patient Cognition Impaired: No Ability to Follow Directions: Good Speech Pattern: Spontaneous Speech Memory Description: Intact Hallucinations: Auditory (baseline sx) and Visual (baseline sx) Delusions: Present (baseline sx) Perceptual Disturbances: Derealization Thought Process: Distracted and Goal Oriented Thought Content: positive for Goal Oriented, positive for Tangential and positive for Suicidal Ideation (denies) Judgement: Good Diagnostics Vital Signs (24Hr): Vital Signs - 24 hr 11/16/21 09:45 Temperature 96.8 F Pulse Rate 97 Respiratory Rate 16 Blood Pressure 134/76 Pulse Oximetry 96 BMI result Body Mass Index 38.0 Labs Results: 11/10/21 08:55 11/12/21 09:04 Imaging Radiology Impressions: ITS Impressions Abdomen Ultrasound 09/01/21 08:59 IMPRESSION: Slightly echogenic liver. Limited evaluation of the gallbladder as the patient has recently eaten. No gallstone seen. Limited visualization of the pancreas. Hip X-Ray 09/16/21 14:47 IMPRESSION: Moderate to severe left hip arthritis. Medications Medications Current Medications Acetaminophen (Acetaminophen 325 Mg Tablet) 975 mg PO Q6H PRN PRN Reason: Headache/Pain Mild Scale (1-3) Last Admin: 11/15/21 09:54 Dose: 975 mg Documented by: Al Hydroxide/Mg Hydroxide (Magnesium Hydrox/Alum Hydrox 30 Ml Oral.Susp) 30 ml PO Q6H PRN PRN Reason: Heartburn/Nausea Last Admin: 08/22/21 05:54 Dose: 30 ml Documented by: Amlodipine Besylate (Amlodipine Besylate 2.5 Mg Tablet) 2.5 mg PO DAILY [facility]; Protocol Last Admin: 11/16/21 09:38 Dose: 2.5 mg Documented by: Artificial Tears (Artificial Tears 15 Ml Drops) 2 drop EYE-BOTH Q4H PRN PRN Reason: Dry Eyes Last Admin: 11/15/21 09:32 Dose: 2 drop Documented by: Aspirin (Aspirin Enteric Coated 325 Mg Tablet.Dr) 650 mg PO DAILY PRN PRN Reason: headache Last Admin: 09/06/21 12:18 Dose: 650 mg Documented by: Benzocaine (Benzocaine 20 % Oral Gel 9 Gm Tube) 1 appl MUCOUS MEM QID PRN; Protocol PRN Reason: Mouth Sore Pain Last Admin: 08/31/21 03:05 Dose: 1 appl Documented by: Benzocaine (Throat Lozenge, Medicated Lozenge) 1 lozenge MUCOUS MEM Q2H PRN PRN Reason: Sore Throat Calcium Carbonate (Calcium Carbonate 500 Mg Tablet) 500 mg PO DAILY [facility] Last Admin: 11/16/21 09:38 Dose: 500 mg Documented by: Calcium Carbonate (Calcium Carbonate 750 Mg Tab.Chew) 750 mg PO Q4H PRN PRN Reason: Heartburn Last Admin: 11/06/21 20:15 Dose: 750 mg Documented by: Clotrimazole (Clotrimazole 1 % Cream 15 Gm Tube) 1 appl TOPICAL BID [facility]; Protocol Last Admin: 11/16/21 09:48 Dose: Not Given Documented by: [place] Butter/Zinc Oxide ([place] Butter/Zinc Oxide Supp.Rect) 1 supp [place] BEDTIME PRN PRN Reason: hemorrhoid pain Last Admin: 09/13/21 21:15 Dose: 1 supp Documented by: Cyanocobalamin (Cyanocobalamin (Vitamin B-12) 100 Mcg Tablet) 100 mcg PO DAILY [facility] Last Admin: 11/16/21 09:39 Dose: 100 mcg Documented by: Diphenhydramine HCl (Diphenhydramine Hcl 25 Mg Tablet) 50 mg PO Q6H PRN PRN Reason: eps Last Admin: 09/22/21 23:48 Dose: 50 mg Documented by: Docusate Sodium (Docusate Sodium 100 Mg Capsule) 100 mg PO BID [facility] Last Admin: 11/16/21 09:39 Dose: 100 mg Documented by: Duloxetine HCl (Duloxetine Hcl 30 Mg Capsule.) 30 mg PO DAILY [facility] Last Admin: 11/16/21 09:39 Dose: 30 mg Documented by: Gabapentin (Gabapentin 400 Mg Capsule) 800 mg PO TID [facility] Last Admin: 11/16/21 14:42 Dose: 800 mg Documented by: Gabapentin (Gabapentin 100 Mg Capsule) 100 mg PO TID PRN PRN Reason: neuropathic pain Last Admin: 09/26/21 17:14 Dose: 100 mg Documented by: Lamotrigine (Lamotrigine 25 Mg Tablet) 25 mg PO BEDTIME [facility] Last Admin: 11/15/21 21:39 Dose: 25 mg Documented by: Levothyroxine Sodium (Levothyroxine Sodium 25 Mcg Tablet) 12.5 mcg PO DAILY@0600 [facility] Last Admin: 11/16/21 06:19 Dose: 12.5 mcg Documented by: Lorazepam (Lorazepam 1 Mg Tablet) 1 mg PO DAILY PRN PRN Reason: anxiety Last Admin: 11/15/21 21:40 Dose: 1 mg Documented by: Magnesium Citrate (Magnesium Citrate 300 Ml Solution) 300 ml PO DAILY PRN PRN Reason: Constipation Last Admin: 11/14/21 18:28 Dose: 300 ml Documented by: Magnesium Hydroxide (Milk Of Magnesia 30 Ml Oral.Susp) 30 ml PO DAILY PRN PRN Reason: Constipation Last Admin: 08/31/21 20:05 Dose: 30 ml Documented by: Melatonin (Melatonin 3 Mg Tablet) 9 mg PO BEDTIME [facility] Last Admin: 11/15/21 21:39 Dose: 9 mg Documented by: Multi-Ingred Cream/Lotion/Oil/Oint (Mineral Oil/Petrolatum,White 106 Gm Tube) 1 appl TOPICAL BID [facility]; Protocol Last Admin: 11/16/21 09:48 Dose: Not Given Documented by: Multivitamins/Vitamin C (Multivitamin Tablet) 1 tab PO DAILY [facility] Last Admin: 11/16/21 09:39 Dose: 1 tab Documented by: Nicotine (Nicotine 14 Mg Patch.Td24) 14 mg TRANSDERMA DAILY [facility] Last Admin: 11/16/21 09:38 Dose: 14 mg Documented by: Nicotine Polacrilex (Nicotine Polacrilex 2 Mg Gum) 4 mg BUCCAL Q1H PRN PRN Reason: Nicotine Cravings Last Admin: 11/16/21 14:42 Dose: 4 mg Documented by: Patient Own Medication (Dry Eye Relief) 1 each EYE-BOTH QID [facility] Last Admin: 11/16/21 16:19 Dose: Not Given Documented by: Omeprazole (Omeprazole 20 Mg Capsule.) 20 mg PO BID@0630,1630 [facility] Last Admin: 11/16/21 16:17 Dose: Not Given Documented by: Polyethylene Glycol (Polyethylene Glycol 3350 17 Gm Powd.Pack) 17 gm PO DAILY PRN PRN Reason: Constipation Last Admin: 11/16/21 09:38 Dose: 17 gm Documented by: Psyllium Hydrophilic Mucilloid (Psyllium Seed 3.4 Gm Powd.Pack) 3.4 gm PO DAILY [facility] Last Admin: 11/16/21 09:38 Dose: 3.4 gm Documented by: Quetiapine Fumarate (Quetiapine Fumarate 100 Mg Tablet) 700 mg PO BEDTIME [facility] Last Admin: 11/15/21 21:42 Dose: 700 mg Documented by: Quetiapine Fumarate (Quetiapine Fumarate 100 Mg Tablet) 100 mg PO Q6H PRN PRN Reason: anxiety/restlessness Ropinirole HCl (Ropinirole Hcl 1 Mg Tablet) 2 mg PO DAILY@1900 [facility] Last Admin: 11/15/21 19:08 Dose: 2 mg Documented by: Senna/Docusate Sodium (Sennosides/Docusate Sodium Tablet) 1 tab PO BID [facility] Last Admin: 11/16/21 09:39 Dose: 1 tab Documented by: Simethicone (Simethicone 80 Mg Tab.Chew) 80 mg PO QIDWMHS PRN PRN Reason: indigestion Last Admin: 11/15/21 14:13 Dose: 80 mg Documented by: Sodium Chloride (Sodium Chloride 0.65 % Nasal 44 Ml Sprbtl) 1 spray NOSTRIL-B Q1H PRN PRN Reason: congestion Last Admin: 11/15/21 09:33 Dose: 1 spray Documented by: Trazodone HCl (Trazodone Hcl 25 Mg Halftab) 75 mg PO BEDTIME PRN PRN Reason: insomnia Last Admin: 11/15/21 21:38 Dose: 75 mg Documented by: Vitamin D (Cholecalciferol (Vitamin D3) 25 Mcg Tablet) 25 mcg PO DAILY [facility] Last Admin: 11/16/21 09:39 Dose: 25 mcg Documented by: Allergies Allergies Allergy/AdvReac Type Severity Reaction Status Date / Time aripiprazole [From Abilify] Allergy Unknown Involuntary Verified 08/19/21 07:20 Spasms chlorpromazine Allergy Unknown Nausea and Verified 08/19/21 07:20 [From Thorazine] Vomiting haloperidol [From Haldol] Allergy Unknown Involuntary Verified 08/19/21 07:20 Spasms olanzapine [From Zyprexa] Allergy Unknown Involuntary Verified 08/19/21 07:20 Spasms paliperidone [From Invega] Allergy Unknown Hallucinati Verified 08/19/21 07:20 ons risperidone Allergy Unknown Involuntary Verified 08/19/21 07:20 Spasms Assessment & Plan Assessment & Plan (1) Schizoaffective disorder, bipolar type: Status: Acute Code(s): F25.0 - Schizoaffective disorder, bipolar type (2) Lumbar radiculopathy: Status: Acute Code(s): M54.16 - Radiculopathy, lumbar region (3) Hip pain, left: Status: Acute Code(s): M25.552 - Pain in left hip Plan 11/05/21: Continue current plan. Support in transition 11/06/2021: Continue current regimen and plans. No changes were made today 11/07/2021: Continue current plans and regimen. No changes were made today 11/08/21: Discontinue a.m. Seroquel 100 mg Increase p.m. Seroquel to 700 mg from 600 mg, consolidating dosages per pt request to improve mgt of daytime sedation. 11/09/21: No changes today Throat culture, COVID-19 testing, throat lozenges prn 11/10/21: R/O CKD sx. Nephrology consultation. Discontinue [place] Lamictal 25 mg hs Encourage fluids Synthroid 12.5 mcg daily 11/11/21: No regime changes today. Continue to monitor 11/12/21: Discontinue atarax, lidocaine Requip, a.m. dose, Lidocaine per pt request Change prn Seroquel to 100 mg po q 6 h prn from 200 mg po q 6h prn Continue to monitor physical symptoms 11/13/21: No medication changes 11/14/21: increase ativan to 1 mg QHS for sleep, anxiety 11/15/21: No medication changes today 11/16/21: Continue plan of care I spent minutes with the patient and/or on the patient floor today, greater than?50% of which was spent counseling/coordinating care. Patient educated on: therapeutic strategies Informed Consent: understands Reason for contiued inpatient stay Substantial Risk for: inability to function and rapid decompensation
[2021-11-16] MEDS: rOPINIRole HCL 1 MG TABLET 2 MG PO (19:00)
[2021-11-16] MEDS: QUEtiapine Fumarate 100 MG TABLET 700 MG PO (19:27)
[2021-11-16] MEDS: traZODone HCL 25 MG HALFTAB 75 MG PO (19:28)
[2021-11-16] MEDS: Melatonin 3 MG TABLET 9 MG PO (19:28)
[2021-11-16] MEDS: lamoTRIgine 25 MG TABLET PO (19:29)
[2021-11-16] MEDS: LORazepam 1 MG TABLET PO (19:31)
[2021-11-17] MEDS: Levothyroxine Sodium 25 MCG TABLET 12.5 MCG PO (06:12)
[2021-11-17] MEDS: Omeprazole 20 MG CAPSULE.DR PO ×2 (06:13→16:47)
[2021-11-17] MEDS: Nicotine Polacrilex 2 MG GUM 4 MG BUCCAL ×5 (09:27→20:20)
[2021-11-17] MEDS: DULoxetine HCl 30 MG CAPSULE.DR PO (09:27)
[2021-11-17] MEDS: Sennosides/Docusate Sodium TABLET 1 TAB PO ×2 (09:27→20:10)
[2021-11-17] MEDS: Artificial Tears 15 ML DROPS 2 DROP EYE-BOTH (09:27)
[2021-11-17] MEDS: amLODIPine Besylate 2.5 MG TABLET PO (09:27)
[2021-11-17] MEDS: Cholecalciferol (Vitamin D3) 25 MCG TABLET PO (09:27)
[2021-11-17] MEDS: Nicotine 14 MG PATCH.TD24 TRANSDERMA (09:27)
[2021-11-17] MEDS: Docusate Sodium 100 MG CAPSULE PO ×2 (09:27→20:10)
[2021-11-17] MEDS: Gabapentin 400 MG CAPSULE 800 MG PO ×3 (09:27→20:10)
[2021-11-17] MEDS: Multivitamin TABLET 1 TAB PO (09:27)
[2021-11-17] MEDS: Cyanocobalamin (Vitamin B-12) 100 MCG TABLET PO (09:27)
[2021-11-17] MEDS: Sodium Chloride 0.65 % Nasal 44 ML SPRBTL 1 SPRAY NOSTRIL-B (09:28)
[2021-11-17] MEDS: Mineral Oil/Petrolatum,White 106 GM Tube 1 APPL TOPICAL (10:56)
[2021-11-17] MEDS: Magnesium Citrate 300 ML SOLUTION PO (10:56)
[2021-11-17] MEDS: Clotrimazole 1 % Cream 15 GM TUBE 1 APPL TOPICAL (10:57)
[2021-11-17 11:20] VITALS: BP 102/69; PULSE 85; TEMP 36.2; O2SAT 94
[2021-11-17] MEDS: Acetaminophen 325 MG TABLET 975 MG PO (14:15)
--- NOTE | 2021-11-17 17:45 | HO.PSYCHPN ---
Subjective Subjective Date of Service: 11/17/21 Reason For Visit: Bipolar, Schizoaffective Interim History: Visable in milieu, social with peers, engaging with less time spent in her room today. Reports right leg pain to team and requests re-order of aspercreme. I am OK to move forward, but I will miss the people here and I am taking time to appreciate them . Describing her relationships with team members and her appreciation of team members who she has worked with. Medication Compliance: Yes Side effects from medications: No Attending Groups: Intermittent Review of Systems Acute medical concerns: No Medical Review of Systems: unchanged Review of Systems Psychiatric: Reports anxiety (discharge related anxiety) Mental Status Exam Mental Status Exam Patient Appearance: Appropriate Patient Orientation: Person, Place, Time and Situation Level of Consciousness: Alert Patient Behavior: Appropriate, Talkative, Cooperative and Good Eye Contact Mood Description: Apprehensive Affect Description: Constricted Patient Cognition Impaired: No Ability to Follow Directions: Good Speech Pattern: Spontaneous Speech Memory Description: Intact Hallucinations: Auditory (baseline sx) and Visual (baseline sx) Delusions: Present (baseline sx) Perceptual Disturbances: Derealization Thought Process: Distracted and Goal Oriented Thought Content: positive for Goal Oriented, positive for Tangential and positive for Suicidal Ideation (denies) Judgement: Good Diagnostics Vital Signs (24Hr): Vital Signs - 24 hr 11/16/21 18:00 11/17/21 11:20 Temperature 97.1 F Pulse Rate 101 H 85 Blood Pressure 139/89 102/69 Pulse Oximetry 94 BMI result Body Mass Index 38.0 Labs Results: 11/10/21 08:55 11/12/21 09:04 Imaging Radiology Impressions: ITS Impressions Abdomen Ultrasound 09/01/21 08:59 IMPRESSION: Slightly echogenic liver. Limited evaluation of the gallbladder as the patient has recently eaten. No gallstone seen. Limited visualization of the pancreas. Hip X-Ray 09/16/21 14:47 IMPRESSION: Moderate to severe left hip arthritis. Medications Medications Current Medications Acetaminophen (Acetaminophen 325 Mg Tablet) 975 mg PO Q6H PRN PRN Reason: Headache/Pain Mild Scale (1-3) Last Admin: 11/17/21 14:15 Dose: 975 mg Documented by: Amlodipine Besylate (Amlodipine Besylate 2.5 Mg Tablet) 2.5 mg PO DAILY [facility]; Protocol Last Admin: 11/17/21 09:27 Dose: 2.5 mg Documented by: Artificial Tears (Artificial Tears 15 Ml Drops) 2 drop EYE-BOTH Q4H PRN PRN Reason: Dry Eyes Last Admin: 11/17/21 09:27 Dose: 2 drop Documented by: Artificial Tears (Artificial Tears 15 Ml Drops) 2 drop EYE-BOTH Q4H PRN PRN Reason: dry eyes Aspirin (Aspirin Enteric Coated 325 Mg Tablet.Dr) 650 mg PO DAILY PRN PRN Reason: headache Last Admin: 09/06/21 12:18 Dose: 650 mg Documented by: Benzocaine (Benzocaine 20 % Oral Gel 9 Gm Tube) 1 appl MUCOUS MEM QID PRN; Protocol PRN Reason: Mouth Sore Pain Last Admin: 08/31/21 03:05 Dose: 1 appl Documented by: Benzocaine (Throat Lozenge, Medicated Lozenge) 1 lozenge MUCOUS MEM Q2H PRN PRN Reason: Sore Throat Calcium Carbonate (Calcium Carbonate 500 Mg Tablet) 500 mg PO DAILY [facility] Last Admin: 11/17/21 09:27 Dose: 500 mg Documented by: Calcium Carbonate (Calcium Carbonate 750 Mg Tab.Chew) 750 mg PO Q4H PRN PRN Reason: Heartburn Last Admin: 11/06/21 20:15 Dose: 750 mg Documented by: Clotrimazole (Clotrimazole 1 % Cream 15 Gm Tube) 1 appl TOPICAL BID [facility]; Protocol Last Admin: 11/17/21 10:57 Dose: 1 appl Documented by: [place] Butter/Zinc Oxide ([place] Butter/Zinc Oxide Supp.Rect) 1 supp DE BEDTIME PRN PRN Reason: hemorrhoid pain Last Admin: 09/13/21 21:15 Dose: 1 supp Documented by: Cyanocobalamin (Cyanocobalamin (Vitamin B-12) 100 Mcg Tablet) 100 mcg PO DAILY [facility] Last Admin: 11/17/21 09:27 Dose: 100 mcg Documented by: Diphenhydramine HCl (Diphenhydramine Hcl 25 Mg Tablet) 50 mg PO Q6H PRN PRN Reason: eps Last Admin: 09/22/21 23:48 Dose: 50 mg Documented by: Docusate Sodium (Docusate Sodium 100 Mg Capsule) 100 mg PO BID [facility] Last Admin: 11/17/21 09:27 Dose: 100 mg Documented by: Duloxetine HCl (Duloxetine Hcl 30 Mg Capsule.) 30 mg PO DAILY [facility] Last Admin: 11/17/21 09:27 Dose: 30 mg Documented by: Gabapentin (Gabapentin 400 Mg Capsule) 800 mg PO TID [facility] Last Admin: 11/17/21 14:05 Dose: 800 mg Documented by: Gabapentin (Gabapentin 100 Mg Capsule) 100 mg PO TID PRN PRN Reason: neuropathic pain Last Admin: 09/26/21 17:14 Dose: 100 mg Documented by: Lamotrigine (Lamotrigine 25 Mg Tablet) 25 mg PO BEDTIME [facility] Last Admin: 11/16/21 19:29 Dose: 25 mg Documented by: Levothyroxine Sodium (Levothyroxine Sodium 25 Mcg Tablet) 12.5 mcg PO DAILY@0600 [facility] Last Admin: 11/17/21 06:12 Dose: 12.5 mcg Documented by: Lorazepam (Lorazepam 1 Mg Tablet) 1 mg PO DAILY PRN PRN Reason: anxiety Last Admin: 11/16/21 19:31 Dose: 1 mg Documented by: Magnesium Citrate (Magnesium Citrate 300 Ml Solution) 300 ml PO DAILY PRN PRN Reason: Constipation Last Admin: 11/17/21 10:56 Dose: 300 ml Documented by: Melatonin (Melatonin 3 Mg Tablet) 9 mg PO BEDTIME [facility] Last Admin: 11/16/21 19:28 Dose: 9 mg Documented by: Multi-Ingred Cream/Lotion/Oil/Oint (Mineral Oil/Petrolatum,White 106 Gm Tube) 1 appl TOPICAL BID [facility]; Protocol Last Admin: 11/17/21 10:56 Dose: 1 appl Documented by: Multivitamins/Vitamin C (Multivitamin Tablet) 1 tab PO DAILY [facility] Last Admin: 11/17/21 09:27 Dose: 1 tab Documented by: Nicotine (Nicotine 14 Mg Patch.Td24) 14 mg TRANSDERMA DAILY [facility] Last Admin: 11/17/21 09:27 Dose: 14 mg Documented by: Nicotine Polacrilex (Nicotine Polacrilex 2 Mg Gum) 4 mg BUCCAL Q1H PRN PRN Reason: Nicotine Cravings Last Admin: 11/17/21 16:47 Dose: 4 mg Documented by: Patient Own Medication (Dry Eye Relief) 1 each EYE-BOTH QID [facility] Last Admin: 11/17/21 13:10 Dose: Not Given Documented by: Omeprazole (Omeprazole 20 Mg Capsule.) 20 mg PO BID@0630,1630 [facility] Last Admin: 11/17/21 16:47 Dose: 20 mg Documented by: Polyethylene Glycol (Polyethylene Glycol 3350 17 Gm Powd.Pack) 17 gm PO DAILY PRN PRN Reason: Constipation Last Admin: 11/16/21 09:38 Dose: 17 gm Documented by: Psyllium Hydrophilic Mucilloid (Psyllium Seed 3.4 Gm Powd.Pack) 3.4 gm PO DAILY [facility] Last Admin: 11/17/21 09:27 Dose: 3.4 gm Documented by: Quetiapine Fumarate (Quetiapine Fumarate 100 Mg Tablet) 700 mg PO BEDTIME [facility] Last Admin: 11/16/21 19:27 Dose: 700 mg Documented by: Quetiapine Fumarate (Quetiapine Fumarate 100 Mg Tablet) 100 mg PO Q6H PRN PRN Reason: anxiety/restlessness Ropinirole HCl (Ropinirole Hcl 1 Mg Tablet) 2 mg PO DAILY@1900 [facility] Last Admin: 11/16/21 19:00 Dose: 2 mg Documented by: Senna/Docusate Sodium (Sennosides/Docusate Sodium Tablet) 1 tab PO BID [facility] Last Admin: 11/17/21 09:27 Dose: 1 tab Documented by: Simethicone (Simethicone 80 Mg Tab.Chew) 80 mg PO QIDWMHS PRN PRN Reason: indigestion Last Admin: 11/15/21 14:13 Dose: 80 mg Documented by: Sodium Chloride (Sodium Chloride 0.65 % Nasal 44 Ml Sprbtl) 1 spray NOSTRIL-B Q1H PRN PRN Reason: congestion Last Admin: 11/17/21 09:28 Dose: 1 spray Documented by: Trazodone HCl (Trazodone Hcl 25 Mg Halftab) 75 mg PO BEDTIME PRN PRN Reason: insomnia Last Admin: 11/16/21 19:28 Dose: 75 mg Documented by: Trolamine Salicylate/Aloe Vera (Trolamine Salicylate 10%/Aloe Cream 35.4 Gm) 1 appl TOPICAL QID PRN PRN Reason: leg pain Vitamin D (Cholecalciferol (Vitamin D3) 25 Mcg Tablet) 25 mcg PO DAILY [facility] Last Admin: 11/17/21 09:27 Dose: 25 mcg Documented by: Allergies Allergies Allergy/AdvReac Type Severity Reaction Status Date / Time aripiprazole [From Abilify] Allergy Unknown Involuntary Verified 08/19/21 07:20 Spasms chlorpromazine Allergy Unknown Nausea and Verified 08/19/21 07:20 [From Thorazine] Vomiting haloperidol [From Haldol] Allergy Unknown Involuntary Verified 08/19/21 07:20 Spasms olanzapine [From Zyprexa] Allergy Unknown Involuntary Verified 08/19/21 07:20 Spasms paliperidone [From Invega] Allergy Unknown Hallucinati Verified 08/19/21 07:20 ons risperidone Allergy Unknown Involuntary Verified 08/19/21 07:20 Spasms Assessment & Plan Assessment & Plan (1) Schizoaffective disorder, bipolar type: Status: Acute Code(s): F25.0 - Schizoaffective disorder, bipolar type (2) Lumbar radiculopathy: Status: Acute Code(s): M54.16 - Radiculopathy, lumbar region (3) Hip pain, left: Status: Acute Code(s): M25.552 - Pain in left hip Plan 11/05/21: Continue current plan. Support in transition 11/06/2021: Continue current regimen and plans. No changes were made today 11/07/2021: Continue current plans and regimen. No changes were made today 11/08/21: Discontinue a.m. Seroquel 100 mg Increase p.m. Seroquel to 700 mg from 600 mg, consolidating dosages per pt request to improve mgt of daytime sedation. 11/09/21: No changes today Throat culture, COVID-19 testing, throat lozenges prn 11/10/21: R/O CKD sx. Nephrology consultation. Discontinue [place] Lamictal 25 mg hs Encourage fluids Synthroid 12.5 mcg daily 11/11/21: No regime changes today. Continue to monitor 11/12/21: Discontinue atarax, lidocaine Requip, a.m. dose, Lidocaine per pt request Change prn Seroquel to 100 mg po q 6 h prn from 200 mg po q 6h prn Continue to monitor physical symptoms 11/13/21: No medication changes 11/14/21: increase ativan to 1 mg QHS for sleep, anxiety 11/15/21: No medication changes today 11/17/21: Support pt in transition to community. I spent minutes with the patient and/or on the patient floor today, greater than?50% of which was spent counseling/coordinating care. Patient educated on: therapeutic strategies Informed Consent: understands Reason for contiued inpatient stay Substantial Risk for: inability to function and rapid decompensation
[2021-11-17] MEDS: rOPINIRole HCL 1 MG TABLET 2 MG PO (19:01)
[2021-11-17 19:30] VITALS: BP 128/79; PULSE 74; TEMP 36.1; O2SAT 97
[2021-11-17] MEDS: traZODone HCL 25 MG HALFTAB 75 MG PO (20:10)
[2021-11-17] MEDS: Melatonin 3 MG TABLET 9 MG PO (20:10)
[2021-11-17] MEDS: LORazepam 1 MG TABLET PO (20:10)
[2021-11-17] MEDS: lamoTRIgine 25 MG TABLET PO (20:10)
[2021-11-17] MEDS: QUEtiapine Fumarate 100 MG TABLET 700 MG PO (20:11)
[2021-11-18 06:00] VITALS: PULSE 88; RESP 16; TEMP 36.6; O2SAT 96
[2021-11-18] MEDS: Levothyroxine Sodium 25 MCG TABLET 12.5 MCG PO (06:03)
[2021-11-18] MEDS: Omeprazole 20 MG CAPSULE.DR PO ×2 (06:03→16:19)
[2021-11-18] MEDS: Cholecalciferol (Vitamin D3) 25 MCG TABLET PO (08:09)
[2021-11-18] MEDS: Cyanocobalamin (Vitamin B-12) 100 MCG TABLET PO (08:09)
[2021-11-18] MEDS: Nicotine Polacrilex 2 MG GUM 4 MG BUCCAL ×3 (08:10→19:18)
[2021-11-18] MEDS: Docusate Sodium 100 MG CAPSULE PO ×2 (08:10→20:04)
[2021-11-18] MEDS: Sennosides/Docusate Sodium TABLET 1 TAB PO ×2 (08:10→20:03)
[2021-11-18] MEDS: Gabapentin 400 MG CAPSULE 800 MG PO ×3 (08:10→20:03)
[2021-11-18] MEDS: Multivitamin TABLET 1 TAB PO (08:10)
[2021-11-18] MEDS: amLODIPine Besylate 2.5 MG TABLET PO (08:10)
[2021-11-18] MEDS: DULoxetine HCl 30 MG CAPSULE.DR PO (08:10)
[2021-11-18] MEDS: Nicotine 14 MG PATCH.TD24 TRANSDERMA (08:11)
--- NOTE | 2021-11-18 16:45 | HO.PSYCHPN ---
Subjective Subjective Date of Service: 11/18/21 Reason For Visit: Bipolar, Schizoaffective Interim History: Brighter, more visable and social in the milieu, interactive with peers. Reports apprehensive anxiety regarding waiting for them to call with a bed for me. States she is feeling more prepared to move forward with her transition. Medication Compliance: Yes Side effects from medications: No Attending Groups: Intermittent Review of Systems Acute medical concerns: No Medical Review of Systems: unchanged Review of Systems Psychiatric: Reports anxiety (discharge related anxiety) Mental Status Exam Mental Status Exam Patient Appearance: Appropriate Patient Orientation: Person, Place, Time and Situation Level of Consciousness: Alert Patient Behavior: Appropriate, Talkative, Cooperative and Good Eye Contact Mood Description: Apprehensive Affect Description: Constricted Patient Cognition Impaired: No Ability to Follow Directions: Good Speech Pattern: Spontaneous Speech Memory Description: Intact Hallucinations: Auditory (baseline sx) and Visual (baseline sx) Delusions: Present (baseline sx) Perceptual Disturbances: Derealization Thought Process: Distracted and Goal Oriented Thought Content: positive for Goal Oriented, positive for Tangential and positive for Suicidal Ideation (denies) Judgement: Good Diagnostics Vital Signs (24Hr): Vital Signs - 24 hr 11/17/21 19:30 11/18/21 06:00 Temperature 96.9 F 98 F Pulse Rate 74 88 Respiratory Rate 16 Blood Pressure 128/79 Pulse Oximetry 97 96 BMI result Body Mass Index 38.0 Labs Results: 11/10/21 08:55 11/12/21 09:04 Imaging Radiology Impressions: ITS Impressions Abdomen Ultrasound 09/01/21 08:59 IMPRESSION: Slightly echogenic liver. Limited evaluation of the gallbladder as the patient has recently eaten. No gallstone seen. Limited visualization of the pancreas. Hip X-Ray 09/16/21 14:47 IMPRESSION: Moderate to severe left hip arthritis. Medications Medications Current Medications Acetaminophen (Acetaminophen 325 Mg Tablet) 975 mg PO Q6H PRN PRN Reason: Headache/Pain Mild Scale (1-3) Last Admin: 11/17/21 14:15 Dose: 975 mg Documented by: Amlodipine Besylate (Amlodipine Besylate 2.5 Mg Tablet) 2.5 mg PO DAILY [facility]; Protocol Last Admin: 11/18/21 08:10 Dose: 2.5 mg Documented by: Artificial Tears (Artificial Tears 15 Ml Drops) 2 drop EYE-BOTH Q4H PRN PRN Reason: Dry Eyes Last Admin: 11/17/21 09:27 Dose: 2 drop Documented by: Artificial Tears (Artificial Tears 15 Ml Drops) 2 drop EYE-BOTH Q4H PRN PRN Reason: dry eyes Aspirin (Aspirin Enteric Coated 325 Mg Tablet.) 650 mg PO DAILY PRN PRN Reason: headache Last Admin: 09/06/21 12:18 Dose: 650 mg Documented by: Benzocaine (Benzocaine 20 % Oral Gel 9 Gm Tube) 1 appl MUCOUS MEM QID PRN; Protocol PRN Reason: Mouth Sore Pain Last Admin: 08/31/21 03:05 Dose: 1 appl Documented by: Benzocaine (Throat Lozenge, Medicated Lozenge) 1 lozenge MUCOUS MEM Q2H PRN PRN Reason: Sore Throat Calcium Carbonate (Calcium Carbonate 500 Mg Tablet) 500 mg PO DAILY [facility] Last Admin: 11/18/21 08:09 Dose: 500 mg Documented by: Calcium Carbonate (Calcium Carbonate 750 Mg Tab.Chew) 750 mg PO Q4H PRN PRN Reason: Heartburn Last Admin: 11/06/21 20:15 Dose: 750 mg Documented by: Clotrimazole (Clotrimazole 1 % Cream 15 Gm Tube) 1 appl TOPICAL BID [facility]; Protocol Last Admin: 11/18/21 08:58 Dose: Not Given Documented by: [place] Butter/Zinc Oxide ([place] Butter/Zinc Oxide Supp.Rect) 1 supp NM BEDTIME PRN PRN Reason: hemorrhoid pain Last Admin: 09/13/21 21:15 Dose: 1 supp Documented by: Cyanocobalamin (Cyanocobalamin (Vitamin B-12) 100 Mcg Tablet) 100 mcg PO DAILY [facility] Last Admin: 11/18/21 08:09 Dose: 100 mcg Documented by: Diphenhydramine HCl (Diphenhydramine Hcl 25 Mg Tablet) 50 mg PO Q6H PRN PRN Reason: eps Last Admin: 09/22/21 23:48 Dose: 50 mg Documented by: Docusate Sodium (Docusate Sodium 100 Mg Capsule) 100 mg PO BID [facility] Last Admin: 11/18/21 08:10 Dose: 100 mg Documented by: Duloxetine HCl (Duloxetine Hcl 30 Mg Capsule.) 30 mg PO DAILY [facility] Last Admin: 11/18/21 08:10 Dose: 30 mg Documented by: Gabapentin (Gabapentin 400 Mg Capsule) 800 mg PO TID [facility] Last Admin: 11/18/21 14:05 Dose: 800 mg Documented by: Gabapentin (Gabapentin 100 Mg Capsule) 100 mg PO TID PRN PRN Reason: neuropathic pain Last Admin: 09/26/21 17:14 Dose: 100 mg Documented by: Lamotrigine (Lamotrigine 25 Mg Tablet) 25 mg PO BEDTIME [facility] Last Admin: 11/17/21 20:10 Dose: 25 mg Documented by: Levothyroxine Sodium (Levothyroxine Sodium 25 Mcg Tablet) 12.5 mcg PO DAILY@0600 [facility] Last Admin: 11/18/21 06:03 Dose: 12.5 mcg Documented by: Lorazepam (Lorazepam 1 Mg Tablet) 1 mg PO DAILY PRN PRN Reason: anxiety Last Admin: 11/17/21 20:10 Dose: 1 mg Documented by: Magnesium Citrate (Magnesium Citrate 300 Ml Solution) 300 ml PO DAILY PRN PRN Reason: Constipation Last Admin: 11/17/21 10:56 Dose: 300 ml Documented by: Multi-Ingred Cream/Lotion/Oil/Oint (Mineral Oil/Petrolatum,White 106 Gm Tube) 1 appl TOPICAL BID [facility]; Protocol Last Admin: 11/18/21 08:58 Dose: Not Given Documented by: Nicotine (Nicotine 14 Mg Patch.Td24) 14 mg TRANSDERMA DAILY [facility] Last Admin: 11/18/21 08:11 Dose: 14 mg Documented by: Nicotine Polacrilex (Nicotine Polacrilex 2 Mg Gum) 4 mg BUCCAL Q1H PRN PRN Reason: Nicotine Cravings Last Admin: 11/18/21 13:33 Dose: 4 mg Documented by: Omeprazole (Omeprazole 20 Mg Capsule.) 20 mg PO BID@0630,1630 [facility] Last Admin: 11/18/21 16:19 Dose: 20 mg Documented by: Polyethylene Glycol (Polyethylene Glycol 3350 17 Gm Powd.Pack) 17 gm PO DAILY PRN PRN Reason: Constipation Last Admin: 11/16/21 09:38 Dose: 17 gm Documented by: Psyllium Hydrophilic Mucilloid (Psyllium Seed 3.4 Gm Powd.Pack) 3.4 gm PO DAILY [facility] Last Admin: 11/18/21 08:11 Dose: 3.4 gm Documented by: Quetiapine Fumarate (Quetiapine Fumarate 100 Mg Tablet) 700 mg PO BEDTIME [facility] Last Admin: 11/17/21 20:11 Dose: 700 mg Documented by: Quetiapine Fumarate (Quetiapine Fumarate 100 Mg Tablet) 100 mg PO Q6H PRN PRN Reason: anxiety/restlessness Ropinirole HCl (Ropinirole Hcl 1 Mg Tablet) 2 mg PO DAILY@1900 [facility] Last Admin: 11/17/21 19:01 Dose: 2 mg Documented by: Senna/Docusate Sodium (Sennosides/Docusate Sodium Tablet) 1 tab PO BID [facility] Last Admin: 11/18/21 08:10 Dose: 1 tab Documented by: Simethicone (Simethicone 80 Mg Tab.Chew) 80 mg PO QIDWMHS PRN PRN Reason: indigestion Last Admin: 11/15/21 14:13 Dose: 80 mg Documented by: Sodium Chloride (Sodium Chloride 0.65 % Nasal 44 Ml Sprbtl) 1 spray NOSTRIL-B Q1H PRN PRN Reason: congestion Last Admin: 11/17/21 09:28 Dose: 1 spray Documented by: Trazodone HCl (Trazodone Hcl 25 Mg Halftab) 75 mg PO BEDTIME PRN PRN Reason: insomnia Last Admin: 11/17/21 20:10 Dose: 75 mg Documented by: Trolamine Salicylate/Aloe Vera (Trolamine Salicylate 10%/Aloe Cream 35.4 Gm) 1 appl TOPICAL QID PRN PRN Reason: leg pain Vitamin D (Cholecalciferol (Vitamin D3) 25 Mcg Tablet) 25 mcg PO DAILY [facility] Last Admin: 11/18/21 08:09 Dose: 25 mcg Documented by: Allergies Allergies Allergy/AdvReac Type Severity Reaction Status Date / Time aripiprazole [From Abilify] Allergy Unknown Involuntary Verified 08/19/21 07:20 Spasms chlorpromazine Allergy Unknown Nausea and Verified 08/19/21 07:20 [From Thorazine] Vomiting haloperidol [From Haldol] Allergy Unknown Involuntary Verified 08/19/21 07:20 Spasms olanzapine [From Zyprexa] Allergy Unknown Involuntary Verified 08/19/21 07:20 Spasms paliperidone [From Invega] Allergy Unknown Hallucinati Verified 08/19/21 07:20 ons risperidone Allergy Unknown Involuntary Verified 08/19/21 07:20 Spasms Assessment & Plan Assessment & Plan (1) Schizoaffective disorder, bipolar type: Status: Acute Code(s): F25.0 - Schizoaffective disorder, bipolar type (2) Lumbar radiculopathy: Status: Acute Code(s): M54.16 - Radiculopathy, lumbar region (3) Hip pain, left: Status: Acute Code(s): M25.552 - Pain in left hip Plan 11/05/21: Continue current plan. Support in transition 11/06/2021: Continue current regimen and plans. No changes were made today 11/07/2021: Continue current plans and regimen. No changes were made today 11/08/21: Discontinue a.m. Seroquel 100 mg Increase p.m. Seroquel to 700 mg from 600 mg, consolidating dosages per pt request to improve mgt of daytime sedation. 11/09/21: No changes today Throat culture, COVID-19 testing, throat lozenges prn 11/10/21: R/O CKD sx. Nephrology consultation. Discontinue [place] Lamictal 25 mg hs Encourage fluids Synthroid 12.5 mcg daily 11/11/21: No regime changes today. Continue to monitor 11/12/21: Discontinue atarax, lidocaine Requip, a.m. dose, Lidocaine per pt request Change prn Seroquel to 100 mg po q 6 h prn from 200 mg po q 6h prn Continue to monitor physical symptoms 11/13/21: No medication changes 11/14/21: increase ativan to 1 mg QHS for sleep, anxiety 11/15/21: No medication changes today 11/17/21: Support pt in transition to community. 11/18/21: Continue current plan I spent minutes with the patient and/or on the patient floor today, greater than?50% of which was spent counseling/coordinating care. Patient educated on: therapeutic strategies Informed Consent: understands and further education needed Reason for contiued inpatient stay Substantial Risk for: inability to function and rapid decompensation
[2021-11-18 18:00] VITALS: BP 147/70; PULSE 85; RESP 17; TEMP 36.7; O2SAT 96
[2021-11-18] MEDS: polyethylene glycoL 3350 17 GM POWD.PACK PO (19:14)
[2021-11-18] MEDS: Acetaminophen 325 MG TABLET 975 MG PO (19:14)
[2021-11-18] MEDS: rOPINIRole HCL 2 MG TABLET PO (19:18)
[2021-11-18] MEDS: QUEtiapine Fumarate 100 MG TABLET 700 MG PO (20:02)
[2021-11-18] MEDS: LORazepam 1 MG TABLET PO (20:03)
[2021-11-18] MEDS: traZODone HCL 25 MG HALFTAB 75 MG PO (20:03)
[2021-11-18] MEDS: lamoTRIgine 25 MG TABLET PO (20:04)
[2021-11-19 06:00] VITALS: BP 136/80; PULSE 80; RESP 14; TEMP 36.6; O2SAT 97
[2021-11-19] MEDS: amLODIPine Besylate 2.5 MG TABLET PO (08:49)
[2021-11-19] MEDS: Gabapentin 400 MG CAPSULE 800 MG PO ×3 (08:49→21:21)
[2021-11-19] MEDS: Sennosides/Docusate Sodium TABLET 1 TAB PO ×2 (08:50→21:25)
[2021-11-19] MEDS: Omeprazole 20 MG CAPSULE.DR PO ×2 (08:50→16:29)
[2021-11-19] MEDS: Levothyroxine Sodium 25 MCG TABLET 12.5 MCG PO (08:50)
[2021-11-19] MEDS: Docusate Sodium 100 MG CAPSULE PO ×2 (08:51→21:20)
[2021-11-19] MEDS: DULoxetine HCl 30 MG CAPSULE.DR PO (08:51)
[2021-11-19] MEDS: Cholecalciferol (Vitamin D3) 25 MCG TABLET PO (08:51)
[2021-11-19] MEDS: Nicotine Polacrilex 2 MG GUM 4 MG BUCCAL ×4 (08:52→21:28)
[2021-11-19] MEDS: Nicotine 14 MG PATCH.TD24 TRANSDERMA (08:52)
[2021-11-19] MEDS: Artificial Tears 15 ML DROPS 2 DROP EYE-BOTH (08:54)
[2021-11-19] MEDS: Cyanocobalamin (Vitamin B-12) 100 MCG TABLET PO (09:06)
[2021-11-19] MEDS: polyethylene glycoL 3350 17 GM POWD.PACK PO (09:10)
--- NOTE | 2021-11-19 15:40 | P.PNPSI_ITS ---
Subjective Subjective Date of Service: 11/19/21 Reason For Visit: Bipolar, Schizoaffective Medical Problems Affecting Mental Status: No Interim History: [facility]. More isolative today, apprehensive- have they called . Resting this afternoon with headphones listening to music. Medication Compliance: Yes Side effects from medications: No Attending Groups: No Review of Systems Acute medical concerns: No Medical Review of Systems: unchanged Review of Systems Psychiatric: Reports anxiety (discharge related anxiety) Mental Status Exam Mental Status Exam Patient Appearance: Appropriate Patient Orientation: Person, Place, Time and Situation Level of Consciousness: Alert Patient Behavior: Appropriate, Talkative, Cooperative and Good Eye Contact Mood Description: Apprehensive Affect Description: Constricted Patient Cognition Impaired: No Ability to Follow Directions: Good Speech Pattern: Spontaneous Speech Memory Description: Intact Hallucinations: Auditory (baseline sx) and Visual (baseline sx) Delusions: Present (baseline sx) Perceptual Disturbances: Derealization Thought Process: Distracted and Goal Oriented Thought Content: positive for Goal Oriented, positive for Tangential and posit sayra for Suicidal Ideation (denies) Judgement: Good Diagnostics Vital Signs (24Hr): Vital Signs - 24 hr 11/18/21 18:00 11/19/21 06:00 Temperature 98.0 F 98 F Pulse Rate 85 80 Respiratory Rate 17 14 Blood Pressure 147/70 H 136/80 Pulse Oximetry 96 97 BMI result Body Mass Index 38.0 Labs Results: 11/10/21 08:55 11/12/21 09:04 Imaging Radiology Impressions: ITS Impressions Abdomen Ultrasound 09/01/21 08:59 IMPRESSION: Slightly echogenic liver. Limited evaluation of the gallbladder as the patient has recently eaten. No gallstone seen. Limited visualization of the pancreas. Hip X-Ray 09/16/21 14:47 IMPRESSION: Moderate to severe left hip arthritis. Medications Medications Current Medications Acetaminophen (Acetaminophen 325 Mg Tablet) 975 mg PO Q6H PRN PRN Reason: Headache/Pain Mild Scale (1-3) Last Admin: 11/18/21 19:14 Dose: 975 mg Documented by: Amlodipine Besylate (Amlodipine Besylate 2.5 Mg Tablet) 2.5 mg PO DAILY YAYA; Protocol Last Admin: 11/19/21 08:49 Dose: 2.5 mg Documented by: Artificial Tears (Artificial Tears 15 Ml Drops) 2 drop EYE-BOTH Q4H PRN PRN Reason: Dry Eyes Last Admin: 11/19/21 08:54 Dose: 2 drop Documented by: Artificial Tears (Artificial Tears 15 Ml Drops) 2 drop EYE-BOTH Q4H PRN PRN Reason: dry eyes Aspirin (Aspirin Enteric Coated 325 Mg Tablet.Dr) 650 mg PO DAILY PRN PRN Reason: headache Last Admin: 09/06/21 12:18 Dose: 650 mg Documented by: Benzocaine (Benzocaine 20 % Oral Gel 9 Gm Tube) 1 appl MUCOUS MEM QID PRN; Protocol PRN Reason: Mouth Sore Pain Last Admin: 08/31/21 03:05 Dose: 1 appl Documented by: Benzocaine (Throat Lozenge, Medicated Lozenge) 1 lozenge MUCOUS MEM Q2H PRN PRN Reason: Sore Throat Calcium Carbonate (Calcium Carbonate 500 Mg Tablet) 500 mg PO DAILY YAYA Last Admin: 11/19/21 08:49 Dose: 500 mg Documented by: Calcium Carbonate (Calcium Carbonate 750 Mg Tab.Chew) 750 mg PO Q4H PRN PRN Reason: Heartburn Last Admin: 11/06/21 20:15 Dose: 750 mg Documented by: Capsaicin (Capsaicin 0.025% Cream 60 Gm Tube) 1 appl TOPICAL QID PRN; Protocol PRN Reason: leg pain Clotrimazole (Clotrimazole 1 % Cream 15 Gm Tube) 1 appl TOPICAL BID YAYA; Protocol Last Admin: 11/19/21 09:05 Dose: Not Given Documented by: [place] Butter/Zinc Oxide ([place] Butter/Zinc Oxide Supp.Rect) 1 supp MA BEDTIME PRN PRN Reason: hemorrhoid pain Last Admin: 09/13/21 21:15 Dose: 1 supp Documented by: Cyanocobalamin (Cyanocobalamin (Vitamin B-12) 100 Mcg Tablet) 100 mcg PO DAILY YAYA Last Admin: 11/19/21 09:06 Dose: 100 mcg Documented by: Diphenhydramine HCl (Diphenhydramine Hcl 25 Mg Tablet) 50 mg PO Q6H PRN PRN Reason: eps Last Admin: 09/22/21 23:48 Dose: 50 mg Documented by: Docusate Sodium (Docusate Sodium 100 Mg Capsule) 100 mg PO BID [facility] Last Admin: 11/19/21 08:51 Dose: 100 mg Documented by: Duloxetine HCl (Duloxetine Hcl 30 Mg Capsule.) 30 mg PO DAILY [facility] Last Admin: 11/19/21 08:51 Dose: 30 mg Documented by: Gabapentin (Gabapentin 400 Mg Capsule) 800 mg PO TID [facility] Last Admin: 11/19/21 14:03 Dose: 800 mg Documented by: Gabapentin (Gabapentin 100 Mg Capsule) 100 mg PO TID PRN PRN Reason: neuropathic pain Last Admin: 09/26/21 17:14 Dose: 100 mg Documented by: Lamotrigine (Lamotrigine 25 Mg Tablet) 25 mg PO BEDTIME [facility] Last Admin: 11/18/21 20:04 Dose: 25 mg Documented by: Levothyroxine Sodium (Levothyroxine Sodium 25 Mcg Tablet) 12.5 mcg PO DAILY@0600 [facility] Last Admin: 11/19/21 08:50 Dose: 12.5 mcg Documented by: Lorazepam (Lorazepam 1 Mg Tablet) 1 mg PO DAILY PRN PRN Reason: anxiety Last Admin: 11/18/21 20:03 Dose: 1 mg Documented by: Magnesium Citrate (Magnesium Citrate 300 Ml Solution) 300 ml PO DAILY PRN PRN Reason: Constipation Last Admin: 11/17/21 10:56 Dose: 300 ml Documented by: Multi-Ingred Cream/Lotion/Oil/Oint (Mineral Oil/Petrolatum,White 106 Gm Tube) 1 appl TOPICAL BID [facility]; Protocol Last Admin: 11/19/21 09:06 Dose: Not Given Documented by: Nicotine (Nicotine 14 Mg Patch.Td24) 14 mg TRANSDERMA DAILY [facility] Last Admin: 11/19/21 08:52 Dose: 14 mg Documented by: Nicotine Polacrilex (Nicotine Polacrilex 2 Mg Gum) 4 mg BUCCAL Q1H PRN PRN Reason: Nicotine Cravings Last Admin: 11/19/21 14:04 Dose: 4 mg Documented by: Nf Medication ( Similasan Complete Eye Relief 2 Drop) 2 drop EYE-BOTH BID PRN PRN Reason: eye dryness Omeprazole (Omeprazole 20 Mg Capsule.) 20 mg PO BID@0630,1630 [facility] Last Admin: 11/19/21 08:50 Dose: 20 mg Documented by: Polyethylene Glycol (Polyethylene Glycol 3350 17 Gm Powd.Pack) 17 gm PO DAILY PRN PRN Reason: Constipation Last Admin: 11/19/21 09:10 Dose: 17 gm Documented by: Psyllium Hydrophilic Mucilloid (Psyllium Seed 3.4 Gm Powd.Pack) 3.4 gm PO DAILY [facility] Last Admin: 11/19/21 08:52 Dose: 3.4 gm Documented by: Quetiapine Fumarate (Quetiapine Fumarate 100 Mg Tablet) 700 mg PO BEDTIME [facility] Last Admin: 11/18/21 20:02 Dose: 700 mg Documented by: Quetiapine Fumarate (Quetiapine Fumarate 100 Mg Tablet) 100 mg PO Q6H PRN PRN Reason: anxiety/restlessness Ropinirole HCl (Ropinirole Hcl 2 Mg Tablet) 2 mg PO DAILY@1900 [facility] Last Admin: 11/18/21 19:18 Dose: 2 mg Documented by: Senna/Docusate Sodium (Sennosides/Docusate Sodium Tablet) 1 tab PO BID [facility] Last Admin: 11/19/21 08:50 Dose: 1 tab Documented by: Simethicone (Simethicone 80 Mg Tab.Chew) 80 mg PO QIDWMHS PRN PRN Reason: indigestion Last Admin: 11/15/21 14:13 Dose: 80 mg Documented by: Sodium Chloride (Sodium Chloride 0.65 % Nasal 44 Ml Sprbtl) 1 spray NOSTRIL-B Q1H PRN PRN Reason: congestion Last Admin: 11/17/21 09:28 Dose: 1 spray Documented by: Trazodone HCl (Trazodone Hcl 25 Mg Halftab) 75 mg PO BEDTIME PRN PRN Reason: insomnia Last Admin: 11/18/21 20:03 Dose: 75 mg Documented by: Trolamine Salicylate/Aloe Vera (Trolamine Salicylate 10%/Aloe Cream 35.4 Gm) 1 appl TOPICAL QID PRN PRN Reason: leg pain Vitamin D (Cholecalciferol (Vitamin D3) 25 Mcg Tablet) 25 mcg PO DAILY [facility] Last Admin: 11/19/21 08:51 Dose: 25 mcg Documented by: Allergies Allergies Allergy/AdvReac Type Severity Reaction Status Date / Time aripiprazole [From Abilify] Allergy Unknown Involuntary Verified 08/19/21 07:20 Spasms chlorpromazine Allergy Unknown Nausea and Verified 08/19/21 07:20 [From Thorazine] Vomiting haloperidol [From Haldol] Allergy Unknown Involuntary Verified 08/19/21 07:20 Spasms olanzapine [From Zyprexa] Allergy Unknown Involuntary Verified 08/19/21 07:20 Spasms paliperidone [From Invega] Allergy Unknown Hallucinati Verified 08/19/21 07:20 ons risperidone Allergy Unknown Involuntary Verified 08/19/21 07:20 Spasms Assessment & Plan Assessment & Plan (1) Schizoaffective disorder, bipolar type: Status: Acute Code(s): F25.0 - Schizoaffective disorder, bipolar type (2) Lumbar radiculopathy: Status: Acute Code(s): M54.16 - Radiculopathy, lumbar region (3) Hip pain, left: Status: Acute Code(s): M25.552 - Pain in left hip Plan 11/05/21: Continue current plan. Support in transition 11/06/2021: Continue current regimen and plans. No changes were made today 11/07/2021: Continue current plans and regimen. No changes were made today 11/08/21: Discontinue a.m. Seroquel 100 mg Increase p.m. Seroquel to 700 mg from 600 mg, consolidating dosages per pt request to improve mgt of daytime sedation. 11/09/21: No changes today Throat culture, COVID-19 testing, throat lozenges prn 11/10/21: R/O CKD sx. Nephrology consultation. Discontinue [place] Lamictal 25 mg hs Encourage fluids Synthroid 12.5 mcg daily 11/11/21: No regime changes today. Continue to monitor 11/12/21: Discontinue atarax, lidocaine Requip, a.m. dose, Lidocaine per pt request Change prn Seroquel to 100 mg po q 6 h prn from 200 mg po q 6h prn Continue to monitor physical symptoms 11/13/21: No medication changes 11/14/21: increase ativan to 1 mg QHS for sleep, anxiety 11/15/21: No medication changes today 11/17/21: Support pt in transition to community. 11/18/21: Continue current plan 11/19/21: Continue current plan I spent minutes with the patient and/or on the patient floor today, greater than?50% of which was spent counseling/coordinating care. Patient educated on: therapeutic strategies Informed Consent: understands Reason for contiued inpatient stay Substantial Risk for: inability to function and rapid decompensation
[2021-11-19 18:00] VITALS: BP 121/87; RESP 18; TEMP 36.3; O2SAT 97
[2021-11-19] MEDS: rOPINIRole HCL 2 MG TABLET PO (19:27)
[2021-11-19] MEDS: lamoTRIgine 25 MG TABLET PO (21:22)
[2021-11-19] MEDS: Acetaminophen 325 MG TABLET 975 MG PO (21:25)
[2021-11-19] MEDS: traZODone HCL 25 MG HALFTAB 75 MG PO (21:27)
[2021-11-19] MEDS: QUEtiapine Fumarate 100 MG TABLET 700 MG PO (21:34)
[2021-11-20 06:00] VITALS: BP 130/84; PULSE 90; RESP 14; TEMP 36.6; O2SAT 98
[2021-11-20] MEDS: Levothyroxine Sodium 25 MCG TABLET 12.5 MCG PO (06:37)
[2021-11-20] MEDS: Omeprazole 20 MG CAPSULE.DR PO ×2 (06:37→16:13)
[2021-11-20] MEDS: Nicotine 14 MG PATCH.TD24 TRANSDERMA (09:06)
[2021-11-20] MEDS: Gabapentin 400 MG CAPSULE 800 MG PO ×3 (09:07→20:23)
[2021-11-20] MEDS: DULoxetine HCl 30 MG CAPSULE.DR PO (09:07)
[2021-11-20] MEDS: Sennosides/Docusate Sodium TABLET 1 TAB PO ×2 (09:07→20:22)
[2021-11-20] MEDS: Cholecalciferol (Vitamin D3) 25 MCG TABLET PO (09:07)
[2021-11-20] MEDS: Docusate Sodium 100 MG CAPSULE PO ×2 (09:07→20:22)
[2021-11-20] MEDS: amLODIPine Besylate 2.5 MG TABLET PO (09:07)
[2021-11-20] MEDS: Cyanocobalamin (Vitamin B-12) 100 MCG TABLET PO (09:07)
[2021-11-20] MEDS: polyethylene glycoL 3350 17 GM POWD.PACK PO (14:02)
[2021-11-20] MEDS: Nicotine Polacrilex 2 MG GUM 4 MG BUCCAL ×3 (14:02→20:23)
[2021-11-20] MEDS: rOPINIRole HCL 2 MG TABLET PO (16:18)
--- NOTE | 2021-11-20 16:42 | P.PNPSI_ITS ---
Subjective Subjective Date of Service: 11/20/21 Reason For Visit: Bipolar, Schizoaffective Interim History: Patient seen and discussed. Reports her mood has been low today. Wondering about increase in her Cymbalta. She has no side effects. She is sleeping well. She has no SI. Review of Systems Review of Systems Anxiety/depression Yes all other systems are reviewed and are negative Reports sore throat Cardiovascular: Reports chest pain and Reports dyspnea Respiratory: Reports dyspnea Gastrointestinal: Reports other (hemorrhoid pain) Musculoskeletal: Reports back pain, Reports myalgias, Reports arthralgias, Reports stiffness and Reports other (hip pain) Reports behavioral changes, Reports confusion and Reports memory loss Psychiatric: Reports no additional psychiatric complaints, Reports abnormal sleep pattern, Reports anxiety (discharge related anxiety), Reports behavioral changes, Reports change in appetite, Reports confusion, Reports depression, Reports difficulty concentrating, Reports auditory hallucinations, Reports hopelessness, Reports irritability, Reports anhedonia, Reports memory loss, Reports mood swings, Reports paranoia, Reports visual hallucinations, Reports hallucinations, Reports homicidal ideation (denies) and Reports suicidal ideation (denies) Mental Status Exam Mental Status Exam Narrative: Patient Appearance:?Disheveled Patient Orientation:?Person, Place, Time and Situation Level of Consciousness:?Alert Patient Behavior:?Talkative and Good Eye Contact Mood Description:?Anxious and down today Affect Description:?Flat Patient Cognition Impaired:?No Ability to Follow Directions:?Good Speech Pattern:?Spontaneous Speech Memory Description:?Intact Hallucinations:?None Delusions:?Not Present Thought Process:?Distracted Thought Content:?positive for Circumstantial and positive for Tangential Depressive Symptoms:?Increased Anxiety Judgement:?Good Patient Appearance: Appropriate Patient Orientation: Person, Place, Time and Situation Level of Consciousness: Alert Patient Behavior: Appropriate, Talkative, Cooperative and Good Eye Contact Mood Description: Apprehensive Affect Description: Constricted Patient Cognition Impaired: No Ability to Follow Directions: Good Speech Pattern: Spontaneous Speech Memory Description: Intact Diagnostics Vital Signs (24Hr): Vital Signs - 24 hr 11/19/21 18:00 11/20/21 06:00 Temperature 97.3 F 98 F Pulse Rate 90 Respiratory Rate 18 14 Blood Pressure 121/87 130/84 Pulse Oximetry 97 98 BMI result Body Mass Index 38.0 Labs Results: 11/10/21 08:55 11/12/21 09:04 Imaging Radiology Impressions: ITS Impressions Abdomen Ultrasound 09/01/21 08:59 IMPRESSION: Slightly echogenic liver. Limited evaluation of the gallbladder as the patient has recently eaten. No gallstone seen. Limited visualization of the pancreas. Hip X-Ray 09/16/21 14:47 IMPRESSION: Moderate to severe left hip arthritis. Medications Medications Current Medications Acetaminophen (Acetaminophen 325 Mg Tablet) 975 mg PO Q6H PRN PRN Reason: Headache/Pain Mild Scale (1-3) Last Admin: 11/19/21 21:25 Dose: 975 mg Documented by: Amlodipine Besylate (Amlodipine Besylate 2.5 Mg Tablet) 2.5 mg PO DAILY YAYA; Protocol Last Admin: 11/20/21 09:07 Dose: 2.5 mg Documented by: Artificial Tears (Artificial Tears 15 Ml Drops) 2 drop EYE-BOTH Q4H PRN PRN Reason: Dry Eyes Last Admin: 11/19/21 08:54 Dose: 2 drop Documented by: Artificial Tears (Artificial Tears 15 Ml Drops) 2 drop EYE-BOTH Q4H PRN PRN Reason: dry eyes Aspirin (Aspirin Enteric Coated 325 Mg Tablet.Dr) 650 mg PO DAILY PRN PRN Reason: headache Last Admin: 09/06/21 12:18 Dose: 650 mg Documented by: Benzocaine (Benzocaine 20 % Oral Gel 9 Gm Tube) 1 appl MUCOUS MEM QID PRN; Protocol PRN Reason: Mouth Sore Pain Last Admin: 08/31/21 03:05 Dose: 1 appl Documented by: Benzocaine (Throat Lozenge, Medicated Lozenge) 1 lozenge MUCOUS MEM Q2H PRN PRN Reason: Sore Throat Calcium Carbonate (Calcium Carbonate 500 Mg Tablet) 500 mg PO DAILY YAYA Last Admin: 11/20/21 09:07 Dose: 500 mg Documented by: Calcium Carbonate (Calcium Carbonate 750 Mg Tab.Chew) 750 mg PO Q4H PRN PRN Reason: Heartburn Last Admin: 11/06/21 20:15 Dose: 750 mg Documented by: Capsaicin (Capsaicin 0.025% Cream 60 Gm Tube) 1 appl TOPICAL QID PRN; Protocol PRN Reason: leg pain Clotrimazole (Clotrimazole 1 % Cream 15 Gm Tube) 1 appl TOPICAL BID YAYA; Protocol Last Admin: 11/20/21 09:08 Dose: Not Given Documented by: [place] Butter/Zinc Oxide ([place] Butter/Zinc Oxide Supp.Rect) 1 supp AL BEDTIME PRN PRN Reason: hemorrhoid pain Last Admin: 09/13/21 21:15 Dose: 1 supp Documented by: Cyanocobalamin (Cyanocobalamin (Vitamin B-12) 100 Mcg Tablet) 100 mcg PO DAILY [facility] Last Admin: 11/20/21 09:07 Dose: 100 mcg Documented by: Diphenhydramine HCl (Diphenhydramine Hcl 25 Mg Tablet) 50 mg PO Q6H PRN PRN Reason: eps Last Admin: 09/22/21 23:48 Dose: 50 mg Documented by: Docusate Sodium (Docusate Sodium 100 Mg Capsule) 100 mg PO BID [facility] Last Admin: 11/20/21 09:07 Dose: 100 mg Documented by: Duloxetine HCl (Duloxetine Hcl 30 Mg Capsule.Dr) 30 mg PO DAILY [facility] Last Admin: 11/20/21 09:07 Dose: 30 mg Documented by: Gabapentin (Gabapentin 400 Mg Capsule) 800 mg PO TID [facility] Last Admin: 11/20/21 14:02 Dose: 800 mg Documented by: Gabapentin (Gabapentin 100 Mg Capsule) 100 mg PO TID PRN PRN Reason: neuropathic pain Last Admin: 09/26/21 17:14 Dose: 100 mg Documented by: Lamotrigine (Lamotrigine 25 Mg Tablet) 25 mg PO BEDTIME [facility] Last Admin: 11/19/21 21:22 Dose: 25 mg Documented by: Levothyroxine Sodium (Levothyroxine Sodium 25 Mcg Tablet) 12.5 mcg PO DAILY@0600 [facility] Last Admin: 11/20/21 06:37 Dose: 12.5 mcg Documented by: Lorazepam (Lorazepam 1 Mg Tablet) 1 mg PO DAILY PRN PRN Reason: anxiety Last Admin: 11/18/21 20:03 Dose: 1 mg Documented by: Magnesium Citrate (Magnesium Citrate 300 Ml Solution) 300 ml PO DAILY PRN PRN Reason: Constipation Last Admin: 11/17/21 10:56 Dose: 300 ml Documented by: Multi-Ingred Cream/Lotion/Oil/Oint (Mineral Oil/Petrolatum,White 106 Gm Tube) 1 appl TOPICAL BID [facility]; Protocol Last Admin: 11/20/21 09:08 Dose: Not Given Documented by: Nicotine (Nicotine 14 Mg Patch.Td24) 14 mg TRANSDERMA DAILY [facility] Last Admin: 11/20/21 09:06 Dose: 14 mg Documented by: Nicotine Polacrilex (Nicotine Polacrilex 2 Mg Gum) 4 mg BUCCAL Q1H PRN PRN Reason: Nicotine Cravings Last Admin: 11/20/21 14:02 Dose: 4 mg Documented by: Nf Medication ( Similasan Complete Eye Relief 2 Drop) 2 drop EYE-BOTH BID PRN PRN Reason: eye dryness Last Admin: 11/19/21 21:23 Dose: 2 drop Documented by: Omeprazole (Omeprazole 20 Mg Capsule.Dr) 20 mg PO BID@0630,1630 [facility] Last Admin: 11/20/21 16:13 Dose: 20 mg Documented by: Polyethylene Glycol (Polyethylene Glycol 3350 17 Gm Powd.Pack) 17 gm PO DAILY PRN PRN Reason: Constipation Last Admin: 11/20/21 14:02 Dose: 17 gm Documented by: Psyllium Hydrophilic Mucilloid (Psyllium Seed 3.4 Gm Powd.Pack) 3.4 gm PO DAILY [facility] Last Admin: 11/20/21 09:06 Dose: 3.4 gm Documented by: Quetiapine Fumarate (Quetiapine Fumarate 100 Mg Tablet) 700 mg PO BEDTIME [facility] Last Admin: 11/19/21 21:34 Dose: 700 mg Documented by: Quetiapine Fumarate (Quetiapine Fumarate 100 Mg Tablet) 100 mg PO Q6H PRN PRN Reason: anxiety/restlessness Ropinirole HCl (Ropinirole Hcl 2 Mg Tablet) 2 mg PO DAILY@1900 [facility] Last Admin: 11/20/21 16:18 Dose: 2 mg Documented by: Senna/Docusate Sodium (Sennosides/Docusate Sodium Tablet) 1 tab PO BID [facility] Last Admin: 11/20/21 09:07 Dose: 1 tab Documented by: Simethicone (Simethicone 80 Mg Tab.Chew) 80 mg PO QIDWMHS PRN PRN Reason: indigestion Last Admin: 11/15/21 14:13 Dose: 80 mg Documented by: Sodium Chloride (Sodium Chloride 0.65 % Nasal 44 Ml Sprbtl) 1 spray NOSTRIL-B Q1H PRN PRN Reason: congestion Last Admin: 11/17/21 09:28 Dose: 1 spray Documented by: Trazodone HCl (Trazodone Hcl 25 Mg Halftab) 75 mg PO BEDTIME PRN PRN Reason: insomnia Last Admin: 11/19/21 21:27 Dose: 75 mg Documented by: Trolamine Salicylate/Aloe Vera (Trolamine Salicylate 10%/Aloe Cream 35.4 Gm) 1 appl TOPICAL QID PRN PRN Reason: leg pain Trolamine Salicylate/Aloe Vera (Trolamine Salicylate 10%/Aloe Cream 35.4 Gm) 1 appl TOPICAL QID PRN PRN Reason: mild-mod pain Vitamin D (Cholecalciferol (Vitamin D3) 25 Mcg Tablet) 25 mcg PO DAILY YAYA Last Admin: 11/20/21 09:07 Dose: 25 mcg Documented by: Allergies Allergies Allergy/AdvReac Type Severity Reaction Status Date / Time aripiprazole [From Abilify] Allergy Unknown Involuntary Verified 08/19/21 07:20 Spasms chlorpromazine Allergy Unknown Nausea and Verified 08/19/21 07:20 [From Thorazine] Vomiting haloperidol [From Haldol] Allergy Unknown Involuntary Verified 08/19/21 07:20 Spasms olanzapine [From Zyprexa] Allergy Unknown Involuntary Verified 08/19/21 07:20 Spasms paliperidone [From Invega] Allergy Unknown Hallucinati Verified 08/19/21 07:20 ons risperidone Allergy Unknown Involuntary Verified 08/19/21 07:20 Spasms Assessment & Plan Assessment & Plan (1) Schizoaffective disorder, bipolar type: Status: Acute Code(s): F25.0 - Schizoaffective disorder, bipolar type (2) Lumbar radiculopathy: Status: Acute Code(s): M54.16 - Radiculopathy, lumbar region (3) Hip pain, left: Status: Acute Code(s): M25.552 - Pain in left hip Plan 11/05/21: Continue current plan. Support in transition 11/06/2021: Continue current regimen and plans. No changes were made today 11/07/2021: Continue current plans and regimen. No changes were made today 11/08/21: Discontinue a.m. Seroquel 100 mg Increase p.m. Seroquel to 700 mg from 600 mg, consolidating dosages per pt request to improve mgt of daytime sedation. 11/09/21: No changes today Throat culture, COVID-19 testing, throat lozenges prn 11/10/21: R/O CKD sx. Nephrology consultation. Discontinue [place] Lamictal 25 mg hs Encourage fluids Synthroid 12.5 mcg daily 11/11/21: No regime changes today. Continue to monitor 11/12/21: Discontinue atarax, lidocaine Requip, a.m. dose, Lidocaine per pt request Change prn Seroquel to 100 mg po q 6 h prn from 200 mg po q 6h prn Continue to monitor physical symptoms 11/13/21: No medication changes 11/14/21: increase ativan to 1 mg QHS for sleep, anxiety 11/15/21: No medication changes today 11/17/21: Support pt in transition to community. 11/18/21: Continue current plan 11/19/21: Continue current plan 11/20: Increase Cymbalta to 40 mg daily I spent minutes with the patient and/or on the patient floor today, greater than?50% of which was spent counseling/coordinating care. Reason for contiued inpatient stay Substantial Risk for: harm to self, inability to function and rapid decompensation
[2021-11-20 18:00] VITALS: BP 106/56; PULSE 99; RESP 16; TEMP 36.3; O2SAT 95
[2021-11-20] MEDS: QUEtiapine Fumarate 100 MG TABLET 700 MG PO (20:21)
[2021-11-20] MEDS: LORazepam 1 MG TABLET PO (20:22)
[2021-11-20] MEDS: traZODone HCL 25 MG HALFTAB 75 MG PO (20:23)
[2021-11-20] MEDS: lamoTRIgine 25 MG TABLET PO (20:24)
[2021-11-21 06:00] VITALS: BP 136/78; PULSE 77; RESP 16; TEMP 36.3; O2SAT 97
[2021-11-21] MEDS: Levothyroxine Sodium 25 MCG TABLET 12.5 MCG PO (06:26)
[2021-11-21] MEDS: Omeprazole 20 MG CAPSULE.DR PO ×2 (06:26→16:25)
[2021-11-21] MEDS: Sennosides/Docusate Sodium TABLET 1 TAB PO ×2 (09:09→21:11)
[2021-11-21] MEDS: amLODIPine Besylate 2.5 MG TABLET PO (09:09)
[2021-11-21] MEDS: Gabapentin 400 MG CAPSULE 800 MG PO ×3 (09:09→21:12)
[2021-11-21] MEDS: Docusate Sodium 100 MG CAPSULE PO ×2 (09:09→21:10)
[2021-11-21] MEDS: DULoxetine HCl 20 MG CAPSULE.DR 40 MG PO (09:09)
[2021-11-21] MEDS: Cyanocobalamin (Vitamin B-12) 100 MCG TABLET PO (09:09)
[2021-11-21] MEDS: Nicotine Polacrilex 2 MG GUM 4 MG BUCCAL ×2 (09:10→19:45)
[2021-11-21] MEDS: Cholecalciferol (Vitamin D3) 25 MCG TABLET PO (09:10)
[2021-11-21] MEDS: Nicotine 14 MG PATCH.TD24 TRANSDERMA (09:10)
[2021-11-21] MEDS: Magnesium Citrate 300 ML SOLUTION PO (10:21)
--- NOTE | 2021-11-21 10:34 | P.PNPSI_ITS ---
Subjective Subjective Date of Service: 11/21/21 Reason For Visit: Bipolar, Schizoaffective Interim History: Patient seen and discussed. Patient reports that she is having hip pain now that she is walking on it more.She Says that she was on Voltaren requesting to start again. Adjusting to a new roommate and discouraged some about her length of stay because she should have been out of here by now. She tolerated the increase in Cymbalta today. She has no side effects. She is sleeping well. She has no SI. Review of Systems Review of Systems Anxiety/depression Yes all other systems are reviewed and are negative Reports sore throat Cardiovascular: Reports chest pain and Reports dyspnea Respiratory: Reports dyspnea Gastrointestinal: Reports other (hemorrhoid pain) Musculoskeletal: Reports back pain, Reports myalgias, Reports arthralgias, Reports stiffness and Reports other (hip pain) Reports behavioral changes, Reports confusion and Reports memory loss Psychiatric: Reports no additional psychiatric complaints, Reports abnormal sleep pattern, Reports anxiety (discharge related anxiety), Reports behavioral changes, Reports change in appetite, Reports confusion, Reports depression, Reports difficulty concentrating, Reports auditory hallucinations, Reports hopelessness, Reports irritability, Reports anhedonia, Reports memory loss, Reports mood swings, Reports paranoia, Reports visual hallucinations, Reports hallucinations, Reports homicidal ideation (denies) and Reports suicidal ideation (denies) Mental Status Exam Mental Status Exam Narrative: Patient Appearance:?Disheveled Patient Orientation:?Person, Place, Time and Situation Level of Consciousness:?Alert Patient Behavior:?Talkative and Good Eye Contact Mood Description:?Anxious and I a.m. better Affect Description:? more reactive Patient Cognition Impaired:?No Ability to Follow Directions:?Good Speech Pattern:?Spontaneous Speech Memory Description:?Intact Hallucinations:?None Delusions:?Not Present Thought Process:?Distracted Thought Content:?positive for Circumstantial and positive for Tangential Depressive Symptoms:?Increased Anxiety Judgement:?Good Patient Appearance: Appropriate Patient Orientation: Person, Place, Time and Situation Level of Consciousness: Alert Patient Behavior: Appropriate, Talkative, Cooperative and Good Eye Contact Mood Description: Apprehensive Affect Description: Constricted Patient Cognition Impaired: No Ability to Follow Directions: Good Speech Pattern: Spontaneous Speech Memory Description: Intact Diagnostics Vital Signs (24Hr): Vital Signs - 24 hr 11/20/21 18:00 Temperature 97.4 F Pulse Rate 99 Respiratory Rate 16 Blood Pressure 106/56 L Pulse Oximetry 95 BMI result Body Mass Index 38.0 Labs Results: 11/10/21 08:55 11/12/21 09:04 Imaging Radiology Impressions: ITS Impressions Abdomen Ultrasound 09/01/21 08:59 IMPRESSION: Slightly echogenic liver. Limited evaluation of the gallbladder as the patient has recently eaten. No gallstone seen. Limited visualization of the pancreas. Hip X-Ray 09/16/21 14:47 IMPRESSION: Moderate to severe left hip arthritis. Medications Medications Current Medications Acetaminophen (Acetaminophen 325 Mg Tablet) 975 mg PO Q6H PRN PRN Reason: Headache/Pain Mild Scale (1-3) Last Admin: 11/19/21 21:25 Dose: 975 mg Documented by: Amlodipine Besylate (Amlodipine Besylate 2.5 Mg Tablet) 2.5 mg PO DAILY [facility]; Protocol Last Admin: 11/21/21 09:09 Dose: 2.5 mg Documented by: Artificial Tears (Artificial Tears 15 Ml Drops) 2 drop EYE-BOTH Q4H PRN PRN Reason: Dry Eyes Last Admin: 11/19/21 08:54 Dose: 2 drop Documented by: Artificial Tears (Artificial Tears 15 Ml Drops) 2 drop EYE-BOTH Q4H PRN PRN Reason: dry eyes Aspirin (Aspirin Enteric Coated 325 Mg Tablet.Dr) 650 mg PO DAILY PRN PRN Reason: headache Last Admin: 09/06/21 12:18 Dose: 650 mg Documented by: Benzocaine (Benzocaine 20 % Oral Gel 9 Gm Tube) 1 appl MUCOUS MEM QID PRN; Protocol PRN Reason: Mouth Sore Pain Last Admin: 08/31/21 03:05 Dose: 1 appl Documented by: Benzocaine (Throat Lozenge, Medicated Lozenge) 1 lozenge MUCOUS MEM Q2H PRN PRN Reason: Sore Throat Calcium Carbonate (Calcium Carbonate 500 Mg Tablet) 500 mg PO DAILY [facility] Last Admin: 11/21/21 09:09 Dose: 500 mg Documented by: Calcium Carbonate (Calcium Carbonate 750 Mg Tab.Chew) 750 mg PO Q4H PRN PRN Reason: Heartburn Last Admin: 11/06/21 20:15 Dose: 750 mg Documented by: Capsaicin (Capsaicin 0.025% Cream 60 Gm Tube) 1 appl TOPICAL QID PRN; Protocol PRN Reason: leg pain Clotrimazole (Clotrimazole 1 % Cream 15 Gm Tube) 1 appl TOPICAL BID [facility]; Protocol Last Admin: 11/21/21 09:10 Dose: Not Given Documented by: [place] Butter/Zinc Oxide ([place] Butter/Zinc Oxide Supp.Rect) 1 supp MD BEDTIME PRN PRN Reason: hemorrhoid pain Last Admin: 09/13/21 21:15 Dose: 1 supp Documented by: Cyanocobalamin (Cyanocobalamin (Vitamin B-12) 100 Mcg Tablet) 100 mcg PO DAILY [facility] Last Admin: 11/21/21 09:09 Dose: 100 mcg Documented by: Diclofenac Sodium (Diclofenac Sodium Delayed Rel 50 Mg Tablet.) 50 mg PO BID [facility] Diphenhydramine HCl (Diphenhydramine Hcl 25 Mg Tablet) 50 mg PO Q6H PRN PRN Reason: eps Last Admin: 09/22/21 23:48 Dose: 50 mg Documented by: Docusate Sodium (Docusate Sodium 100 Mg Capsule) 100 mg PO BID [facility] Last Admin: 11/21/21 09:09 Dose: 100 mg Documented by: Duloxetine HCl (Duloxetine Hcl 20 Mg Capsule.) 40 mg PO DAILY [facility] Last Admin: 11/21/21 09:09 Dose: 40 mg Documented by: Gabapentin (Gabapentin 400 Mg Capsule) 800 mg PO TID [facility] Last Admin: 11/21/21 09:09 Dose: 800 mg Documented by: Gabapentin (Gabapentin 100 Mg Capsule) 100 mg PO TID PRN PRN Reason: neuropathic pain Last Admin: 09/26/21 17:14 Dose: 100 mg Documented by: Lamotrigine (Lamotrigine 25 Mg Tablet) 25 mg PO BEDTIME [facility] Last Admin: 11/20/21 20:24 Dose: 25 mg Documented by: Levothyroxine Sodium (Levothyroxine Sodium 25 Mcg Tablet) 12.5 mcg PO DAILY@0600 [facility] Last Admin: 11/21/21 06:26 Dose: 12.5 mcg Documented by: Lorazepam (Lorazepam 1 Mg Tablet) 1 mg PO DAILY PRN PRN Reason: anxiety Last Admin: 11/20/21 20:22 Dose: 1 mg Documented by: Magnesium Citrate (Magnesium Citrate 300 Ml Solution) 300 ml PO DAILY PRN PRN Reason: Constipation Last Admin: 11/21/21 10:21 Dose: 300 ml Documented by: Multi-Ingred Cream/Lotion/Oil/Oint (Mineral Oil/Petrolatum,White 106 Gm Tube) 1 appl TOPICAL BID [facility]; Protocol Last Admin: 11/21/21 09:10 Dose: Not Given Documented by: Nicotine (Nicotine 14 Mg Patch.Td24) 14 mg TRANSDERMA DAILY [facility] Last Admin: 11/21/21 09:10 Dose: 14 mg Documented by: Nicotine Polacrilex (Nicotine Polacrilex 2 Mg Gum) 4 mg BUCCAL Q1H PRN PRN Reason: Nicotine Cravings Last Admin: 11/21/21 09:10 Dose: 4 mg Documented by: Nf Medication ( Similasan Complete Eye Relief 2 Drop) 2 drop EYE-BOTH BID PRN PRN Reason: eye dryness Last Admin: 11/19/21 21:23 Dose: 2 drop Documented by: Omeprazole (Omeprazole 20 Mg Capsule.Dr) 20 mg PO BID@0630,1630 [facility] Last Admin: 11/21/21 06:26 Dose: 20 mg Documented by: Polyethylene Glycol (Polyethylene Glycol 3350 17 Gm Powd.Pack) 17 gm PO DAILY PRN PRN Reason: Constipation Last Admin: 11/20/21 14:02 Dose: 17 gm Documented by: Psyllium Hydrophilic Mucilloid (Psyllium Seed 3.4 Gm Powd.Pack) 3.4 gm PO DAILY [facility] Last Admin: 11/21/21 09:11 Dose: 3.4 gm Documented by: Quetiapine Fumarate (Quetiapine Fumarate 100 Mg Tablet) 700 mg PO BEDTIME [facility] Last Admin: 11/20/21 20:21 Dose: 700 mg Documented by: Quetiapine Fumarate (Quetiapine Fumarate 100 Mg Tablet) 100 mg PO Q6H PRN PRN Reason: anxiety/restlessness Ropinirole HCl (Ropinirole Hcl 2 Mg Tablet) 2 mg PO DAILY@1900 [facility] Last Admin: 11/20/21 16:18 Dose: 2 mg Documented by: Senna/Docusate Sodium (Sennosides/Docusate Sodium Tablet) 1 tab PO BID [facility] Last Admin: 11/21/21 09:09 Dose: 1 tab Documented by: Simethicone (Simethicone 80 Mg Tab.Chew) 80 mg PO QIDWMHS PRN PRN Reason: indigestion Last Admin: 11/15/21 14:13 Dose: 80 mg Documented by: Sodium Chloride (Sodium Chloride 0.65 % Nasal 44 Ml Sprbtl) 1 spray NOSTRIL-B Q1H PRN PRN Reason: congestion Last Admin: 11/17/21 09:28 Dose: 1 spray Documented by: Trazodone HCl (Trazodone Hcl 25 Mg Halftab) 75 mg PO BEDTIME PRN PRN Reason: insomnia Last Admin: 11/20/21 20:23 Dose: 75 mg Documented by: Trolamine Salicylate/Aloe Vera (Trolamine Salicylate 10%/Aloe Cream 35.4 Gm) 1 appl TOPICAL QID PRN PRN Reason: leg pain Trolamine Salicylate/Aloe Vera (Trolamine Salicylate 10%/Aloe Cream 35.4 Gm) 1 appl TOPICAL QID PRN PRN Reason: mild-mod pain Vitamin D (Cholecalciferol (Vitamin D3) 25 Mcg Tablet) 25 mcg PO DAILY [facility] Last Admin: 11/21/21 09:10 Dose: 25 mcg Documented by: Allergies Allergies Allergy/AdvReac Type Severity Reaction Status Date / Time aripiprazole [From Abilify] Allergy Unknown Involuntary Verified 08/19/21 07:20 Spasms chlorpromazine Allergy Unknown Nausea and Verified 08/19/21 07:20 [From Thorazine] Vomiting haloperidol [From Haldol] Allergy Unknown Involuntary Verified 08/19/21 07:20 Spasms olanzapine [From Zyprexa] Allergy Unknown Involuntary Verified 08/19/21 07:20 Spasms paliperidone [From Invega] Allergy Unknown Hallucinati Verified 08/19/21 07:20 ons risperidone Allergy Unknown Involuntary Verified 08/19/21 07:20 Spasms Assessment & Plan Assessment & Plan (1) Schizoaffective disorder, bipolar type: Status: Acute Code(s): F25.0 - Schizoaffective disorder, bipolar type (2) Lumbar radiculopathy: Status: Acute Code(s): M54.16 - Radiculopathy, lumbar region (3) Hip pain, left: Status: Acute Code(s): M25.552 - Pain in left hip Plan 11/05/21: Continue current plan. Support in transition 11/06/2021: Continue current regimen and plans. No changes were made today 11/07/2021: Continue current plans and regimen. No changes were made today 11/08/21: Discontinue a.m. Seroquel 100 mg Increase p.m. Seroquel to 700 mg from 600 mg, consolidating dosages per pt request to improve mgt of daytime sedation. 11/09/21: No changes today Throat culture, COVID-19 testing, throat lozenges prn 11/10/21: R/O CKD sx. Nephrology consultation. Discontinue [place] Lamictal 25 mg hs Encourage fluids Synthroid 12.5 mcg daily 11/11/21: No regime changes today. Continue to monitor 11/12/21: Discontinue atarax, lidocaine Requip, a.m. dose, Lidocaine per pt request Change prn Seroquel to 100 mg po q 6 h prn from 200 mg po q 6h prn Continue to monitor physical symptoms 11/13/21: No medication changes 11/14/21: increase ativan to 1 mg QHS for sleep, anxiety 11/15/21: No medication changes today 11/17/21: Support pt in transition to community. 11/18/21: Continue current plan 11/19/21: Continue current plan 11/20: Increase Cymbalta to 40 mg daily 11/21 start Voltaren 50 mg BID. No change in psychotropics. I spent minutes with the patient and/or on the patient floor today, g reater than?50% of which was spent counseling/coordinating care. Reason for contiued inpatient stay Substantial Risk for: inability to function and rapid decompensation
[2021-11-21] MEDS: Diclofenac Sodium Delayed Rel 50 MG TABLET.DR PO ×2 (13:08→19:38)
[2021-11-21] MEDS: Sodium Chloride 0.65 % Nasal 44 ML SPRBTL 1 SPRAY NOSTRIL-B (14:05)
[2021-11-21] MEDS: rOPINIRole HCL 2 MG TABLET PO (19:39)
[2021-11-21 19:50] VITALS: BP 124/59; PULSE 81; TEMP 35.8
[2021-11-21] MEDS: QUEtiapine Fumarate 100 MG TABLET 700 MG PO (21:10)
[2021-11-21] MEDS: lamoTRIgine 25 MG TABLET PO (21:11)
[2021-11-22] MEDS: Levothyroxine Sodium 25 MCG TABLET 12.5 MCG PO (05:37)
[2021-11-22] MEDS: Omeprazole 20 MG CAPSULE.DR PO ×2 (05:37→17:04)
[2021-11-22] MEDS: Cholecalciferol (Vitamin D3) 25 MCG TABLET PO (08:33)
[2021-11-22] MEDS: Sennosides/Docusate Sodium TABLET 1 TAB PO ×2 (08:33→20:40)
[2021-11-22] MEDS: Gabapentin 400 MG CAPSULE 800 MG PO ×3 (08:33→20:41)
[2021-11-22] MEDS: Diclofenac Sodium Delayed Rel 50 MG TABLET.DR PO ×2 (08:33→20:39)
[2021-11-22] MEDS: DULoxetine HCl 20 MG CAPSULE.DR 40 MG PO (08:34)
[2021-11-22] MEDS: Docusate Sodium 100 MG CAPSULE PO ×2 (08:34→20:40)
[2021-11-22] MEDS: amLODIPine Besylate 2.5 MG TABLET PO (08:34)
[2021-11-22] MEDS: Nicotine 14 MG PATCH.TD24 TRANSDERMA (08:37)
[2021-11-22] MEDS: Cyanocobalamin (Vitamin B-12) 100 MCG TABLET PO (08:37)
[2021-11-22] MEDS: Nicotine Polacrilex 2 MG GUM 4 MG BUCCAL ×3 (14:30→18:24)
--- NOTE | 2021-11-22 14:38 | P.PNPSI_ITS ---
Subjective Subjective Date of Service: 11/22/21 Reason For Visit: Bipolar, Schizoaffective Subjective Notes: Conditional Voluntary Healthcare Proxy: No Guardianship: No Medical Problems Affecting Mental Status: No Interim History: Team, pt reports she is feeling depressed, anxious regarding discharge. Weekend team increased Cymbalta, re-started Voltaren for pain (hip). Today, reports a.m. sedation, asks to decrease Seroquel. Team reports pt is more engaged in the milieu and more visable over the weekend. Medication Compliance: Yes Side effects from medications: No Attending Groups: Intermittent Review of Systems Acute medical concerns: No Medical Review of Systems: unchanged Review of Systems Psychiatric: Reports anxiety and Reports depression Mental Status Exam Mental Status Exam Patient Appearance: Disheveled Patient Orientation: Person, Place, Time and Situation Level of Consciousness: Alert Patient Behavior: Talkative, Cooperative and Good Eye Contact Mood Description: Withdrawn Affect Description: Flat Patient Cognition Impaired: No Ability to Follow Directions: Good Speech Pattern: Spontaneous Speech Memory Description: Intact Hallucinations: Auditory (baseline) Delusions: Not Present Perceptual Disturbances: Depersonalization and Derealization Thought Process: Distracted Thought Content: positive for [place] and positive for Circumstantial Depressive Symptoms: Increased Anxiety, Unhappiness and Difficulty Concentrating Abnormal Motor Activity Signs and Symptoms: Restlessness Judgement: Fair Diagnostics Vital Signs (24Hr): Vital Signs - 24 hr 11/21/21 19:50 Temperature 96.4 F L Pulse Rate 81 Blood Pressure 124/59 L BMI result Body Mass Index 38.0 Labs Results: 11/10/21 08:55 11/12/21 09:04 Imaging Radiology Impressions: ITS Impressions Abdomen Ultrasound 09/01/21 08:59 IMPRESSION: Slightly echogenic liver. Limited evaluation of the gallbladder as the patient has recently eaten. No gallstone seen. Limited visualization of the pancreas. Hip X-Ray 09/16/21 14:47 IMPRESSION: Moderate to severe left hip arthritis. Medications Medications Current Medications Acetaminophen (Acetaminophen 325 Mg Tablet) 975 mg PO Q6H PRN PRN Reason: Headache/Pain Mild Scale (1-3) Last Admin: 11/19/21 21:25 Dose: 975 mg Documented by: Amlodipine Besylate (Amlodipine Besylate 2.5 Mg Tablet) 2.5 mg PO DAILY [facility]; Protocol Last Admin: 11/22/21 08:34 Dose: 2.5 mg Documented by: Artificial Tears (Artificial Tears 15 Ml Drops) 2 drop EYE-BOTH Q4H PRN PRN Reason: Dry Eyes Last Admin: 11/19/21 08:54 Dose: 2 drop Documented by: Artificial Tears (Artificial Tears 15 Ml Drops) 2 drop EYE-BOTH Q4H PRN PRN Reason: dry eyes Benzocaine (Benzocaine 20 % Oral Gel 9 Gm Tube) 1 appl MUCOUS MEM QID PRN; Protocol PRN Reason: Mouth Sore Pain Last Admin: 08/31/21 03:05 Dose: 1 appl Documented by: Benzocaine (Throat Lozenge, Medicated Lozenge) 1 lozenge MUCOUS MEM Q2H PRN PRN Reason: Sore Throat Calcium Carbonate (Calcium Carbonate 500 Mg Tablet) 500 mg PO DAILY [facility] Last Admin: 11/22/21 08:33 Dose: 500 mg Documented by: Calcium Carbonate (Calcium Carbonate 750 Mg Tab.Chew) 750 mg PO Q4H PRN PRN Reason: Heartburn Last Admin: 11/06/21 20:15 Dose: 750 mg Documented by: Capsaicin (Capsaicin 0.025% Cream 60 Gm Tube) 1 appl TOPICAL QID PRN; Protocol PRN Reason: leg pain Clotrimazole (Clotrimazole 1 % Cream 15 Gm Tube) 1 appl TOPICAL BID [facility]; Protocol Last Admin: 11/22/21 08:36 Dose: Not Given Documented by: [place] Butter/Zinc Oxide ([place] Butter/Zinc Oxide Supp.Rect) 1 supp AR BEDTIME PRN PRN Reason: hemorrhoid pain Last Admin: 09/13/21 21:15 Dose: 1 supp Documented by: Cyanocobalamin (Cyanocobalamin (Vitamin B-12) 100 Mcg Tablet) 100 mcg PO DAILY [facility] Last Admin: 11/22/21 08:37 Dose: 100 mcg Documented by: Diclofenac Sodium (Diclofenac Sodium Delayed Rel 50 Mg Tablet.Dr) 50 mg PO BID [facility] Last Admin: 11/22/21 08:33 Dose: 50 mg Documented by: Diphenhydramine HCl (Diphenhydramine Hcl 25 Mg Tablet) 50 mg PO Q6H PRN PRN Reason: eps Last Admin: 09/22/21 23:48 Dose: 50 mg Documented by: Docusate Sodium (Docusate Sodium 100 Mg Capsule) 100 mg PO BID [facility] Last Admin: 11/22/21 08:34 Dose: 100 mg Documented by: Duloxetine HCl (Duloxetine Hcl 20 Mg Capsule.) 40 mg PO DAILY [facility] Last Admin: 11/22/21 08:34 Dose: 40 mg Documented by: Gabapentin (Gabapentin 400 Mg Capsule) 800 mg PO TID [facility] Last Admin: 11/22/21 14:25 Dose: 800 mg Documented by: Gabapentin (Gabapentin 100 Mg Capsule) 100 mg PO TID PRN PRN Reason: neuropathic pain Last Admin: 09/26/21 17:14 Dose: 100 mg Documented by: Lamotrigine (Lamotrigine 25 Mg Tablet) 25 mg PO BEDTIME [facility] Last Admin: 11/21/21 21:11 Dose: 25 mg Documented by: Levothyroxine Sodium (Levothyroxine Sodium 25 Mcg Tablet) 12.5 mcg PO DAILY@0600 [facility] Last Admin: 11/22/21 05:37 Dose: 12.5 mcg Documented by: Lorazepam (Lorazepam 1 Mg Tablet) 1 mg PO DAILY PRN PRN Reason: anxiety Last Admin: 11/20/21 20:22 Dose: 1 mg Documented by: Multi-Ingred Cream/Lotion/Oil/Oint (Mineral Oil/Petrolatum,White 106 Gm Tube) 1 appl TOPICAL BID [facility]; Protocol Last Admin: 11/22/21 08:37 Dose: Not Given Documented by: Nicotine (Nicotine 14 Mg Patch.Td24) 14 mg TRANSDERMA DAILY [facility] Last Admin: 11/22/21 08:37 Dose: 14 mg Documented by: Nicotine Polacrilex (Nicotine Polacrilex 2 Mg Gum) 4 mg BUCCAL Q1H PRN PRN Reason: Nicotine Cravings Last Admin: 11/22/21 14:30 Dose: 4 mg Documented by: Nf Medication ( Similasan Complete Eye Relief 2 Drop) 2 drop EYE-BOTH BID PRN PRN Reason: eye dryness Last Admin: 11/22/21 08:53 Dose: 2 drop Documented by: Omeprazole (Omeprazole 20 Mg Capsule.) 20 mg PO BID@0630,1630 [facility] Last Admin: 11/22/21 05:37 Dose: 20 mg Documented by: Polyethylene Glycol (Polyethylene Glycol 3350 17 Gm Powd.Pack) 17 gm PO DAILY PRN PRN Reason: Constipation Last Admin: 11/20/21 14:02 Dose: 17 gm Documented by: Psyllium Hydrophilic Mucilloid (Psyllium Seed 3.4 Gm Powd.Pack) 3.4 gm PO DAILY [facility] Last Admin: 11/22/21 08:37 Dose: 3.4 gm Documented by: Quetiapine Fumarate (Quetiapine Fumarate 100 Mg Tablet) 100 mg PO Q6H PRN PRN Reason: anxiety/restlessness Quetiapine Fumarate (Quetiapine Fumarate 300 Mg Tablet) 600 mg PO BEDTIME [facility] Ropinirole HCl (Ropinirole Hcl 2 Mg Tablet) 2 mg PO DAILY@1900 [facility] Last Admin: 11/21/21 19:39 Dose: 2 mg Documented by: Senna/Docusate Sodium (Sennosides/Docusate Sodium Tablet) 1 tab PO BID [facility] Last Admin: 11/22/21 08:33 Dose: 1 tab Documented by: Simethicone (Simethicone 80 Mg Tab.Chew) 80 mg PO QIDWMHS PRN PRN Reason: indigestion Last Admin: 11/15/21 14:13 Dose: 80 mg Documented by: Sodium Chloride (Sodium Chloride 0.65 % Nasal 44 Ml Sprbtl) 1 spray NOSTRIL-B Q1H PRN PRN Reason: congestion Last Admin: 11/21/21 14:05 Dose: 1 spray Documented by: Trazodone HCl (Trazodone Hcl 25 Mg Halftab) 75 mg PO BEDTIME PRN PRN Reason: insomnia Last Admin: 11/20/21 20:23 Dose: 75 mg Documented by: Trolamine Salicylate/Aloe Vera (Trolamine Salicylate 10%/Aloe Cream 35.4 Gm) 1 appl TOPICAL QID PRN PRN Reason: leg pain Trolamine Salicylate/Aloe Vera (Trolamine Salicylate 10%/Aloe Cream 35.4 Gm) 1 appl TOPICAL QID PRN PRN Reason: mild-mod pain Last Admin: 11/21/21 16:20 Dose: 1 appl Documented by: Vitamin D (Cholecalciferol (Vitamin D3) 25 Mcg Tablet) 25 mcg PO DAILY [facility] Last Admin: 11/22/21 08:33 Dose: 25 mcg Documented by: Allergies Allergies Allergy/AdvReac Type Severity Reaction Status Date / Time aripiprazole [From [facility]] Allergy Unknown Involuntary Verified 08/19/21 07:20 Spasms chlorpromazine Allergy Unknown Nausea and Verified 08/19/21 07:20 [From Thorazine] Vomiting haloperidol [From Haldol] Allergy Unknown Involuntary Verified 08/19/21 07:20 Spasms olanzapine [From Zyprexa] Allergy Unknown Involuntary Verified 08/19/21 07:20 Spasms paliperidone [From Invega] Allergy Unknown Hallucinati Verified 08/19/21 07:20 ons risperidone Allergy Unknown Involuntary Verified 08/19/21 07:20 Spasms Assessment & Plan Assessment & Plan (1) Schizoaffective disorder, bipolar type: Status: Acute Code(s): F25.0 - Schizoaffective disorder, bipolar type (2) Lumbar radiculopathy: Status: Acute Code(s): M54.16 - Radiculopathy, lumbar region (3) Hip pain, left: Status: Acute Code(s): M25.552 - Pain in left hip Plan 11/05/21: Continue current plan. Support in transition 11/06/2021: Continue current regimen and plans. No changes were made today 11/07/2021: Continue current plans and regimen. No changes were made today 11/08/21: Discontinue a.m. Seroquel 100 mg Increase p.m. Seroquel to 700 mg from 600 mg, consolidating dosages per pt request to improve mgt of daytime sedation. 11/09/21: No changes today Throat culture, COVID-19 testing, throat lozenges prn 11/10/21: R/O CKD sx. Nephrology consultation. Discontinue [place] Lamictal 25 mg hs Encourage fluids Synthroid 12.5 mcg daily 11/11/21: No regime changes today. Continue to monitor 11/12/21: Discontinue atarax, lidocaine Requip, a.m. dose, Lidocaine per pt request Change prn Seroquel to 100 mg po q 6 h prn from 200 mg po q 6h prn Continue to monitor physical symptoms 11/13/21: No medication changes 11/14/21: increase ativan to 1 mg QHS for sleep, anxiety 11/15/21: No medication changes today 11/17/21: Support pt in transition to community. 11/18/21: Continue current plan 11/19/21: Continue current plan 11/20: Increase Cymbalta to 40 mg daily 11/21 start Voltaren 50 mg BID. No change in psychotropics. 11/22/21: Decrease Seroquel by 100 mg daily at HS Increase Lamictal to 50 mg daily CBCD, CMP Support through this process of transition. I spent minutes with the patient and/or on the patient floor today, greater than?50% of which was spent counseling/coordinating care. Patient educated on: medication risk/benefits and therapeutic strategies Informed Consent: understands and further education needed Reason for contiued inpatient stay Substantial Risk for: inability to function and rapid decompensation
[2021-11-22 18:00] VITALS: BP 116/57; PULSE 75; TEMP 36.2; O2SAT 99
[2021-11-22] MEDS: rOPINIRole HCL 2 MG TABLET PO (18:19)
[2021-11-22] MEDS: traZODone HCL 25 MG HALFTAB 75 MG PO (20:40)
[2021-11-22] MEDS: lamoTRIgine 25 MG TABLET 50 MG PO (20:40)
[2021-11-22] MEDS: LORazepam 1 MG TABLET PO (20:41)
[2021-11-22] MEDS: QUEtiapine Fumarate 300 MG TABLET 600 MG PO (20:41)
[2021-11-22] MEDS: Sodium Chloride 0.65 % Nasal 44 ML SPRBTL 1 SPRAY NOSTRIL-B (20:49)
[2021-11-23 06:00] VITALS: BP 129/90; PULSE 79; TEMP 36.3; O2SAT 99
[2021-11-23] MEDS: Levothyroxine Sodium 25 MCG TABLET 12.5 MCG PO (06:23)
[2021-11-23] MEDS: Omeprazole 20 MG CAPSULE.DR PO ×2 (06:23→15:57)
[2021-11-23] MEDS: Sodium Chloride 0.65 % Nasal 44 ML SPRBTL 1 SPRAY NOSTRIL-B ×2 (09:42→20:09)
[2021-11-23] MEDS: Capsaicin 0.025% Cream 60 GM TUBE 1 APPL TOPICAL (09:42)
[2021-11-23] MEDS: DULoxetine HCl 20 MG CAPSULE.DR 40 MG PO (09:44)
[2021-11-23] MEDS: Cyanocobalamin (Vitamin B-12) 100 MCG TABLET PO (09:44)
[2021-11-23] MEDS: Gabapentin 400 MG CAPSULE 800 MG PO ×3 (09:44→20:10)
[2021-11-23] MEDS: Cholecalciferol (Vitamin D3) 25 MCG TABLET PO (09:44)
[2021-11-23] MEDS: Diclofenac Sodium Delayed Rel 50 MG TABLET.DR PO ×2 (09:44→20:10)
[2021-11-23] MEDS: Sennosides/Docusate Sodium TABLET 1 TAB PO ×2 (09:44→20:10)
[2021-11-23] MEDS: amLODIPine Besylate 2.5 MG TABLET PO (09:44)
[2021-11-23] MEDS: Docusate Sodium 100 MG CAPSULE PO ×2 (09:44→20:10)
[2021-11-23] MEDS: Nicotine Polacrilex 2 MG GUM 4 MG BUCCAL ×4 (09:45→20:32)
--- NOTE | 2021-11-23 16:10 | HO.PSYCHPN ---
Subjective Subjective Date of Service: 11/23/21 Reason For Visit: Bipolar, Schizoaffective Subjective Notes: Conditional Voluntary Healthcare Proxy: No Guardianship: No Medical Problems Affecting Mental Status: No Interim History: Blanca reports morning sedation. We discussed the decrease of Seroquel to 500 mg this week and she will consider. Denies current symptoms. Discouraged with the long wait for housing/placement. Reports respite has rejected her application and it appears she will be going to a senior living. States she has mixed thoughts about this. Reports no current medical/psychiatric concerns except the morning sedation. Medication Compliance: Yes Side effects from medications: Yes (morning sedation) Attending Groups: Intermittent Review of Systems Acute medical concerns: No Medical Review of Systems: unchanged Review of Systems Psychiatric: Reports no additional psychiatric complaints and Reports anxiety (anticipatory) Mental Status Exam Mental Status Exam Patient Appearance: Disheveled Patient Orientation: Person, Place, Time and Situation Level of Consciousness: Alert Patient Behavior: Talkative, Cooperative and Good Eye Contact Mood Description: Withdrawn Affect Description: Flat Patient Cognition Impaired: No Ability to Follow Directions: Good Speech Pattern: Spontaneous Speech Memory Description: Intact Hallucinations: Auditory (baseline) Delusions: Not Present Perceptual Disturbances: Depersonalization and Derealization Thought Process: Distracted Thought Content: positive for [place] and positive for Circumstantial Depressive Symptoms: Increased Anxiety, Unhappiness and Difficulty Concentrating Abnormal Motor Activity Signs and Symptoms: Restlessness Judgement: Fair Diagnostics Vital Signs (24Hr): Vital Signs - 24 hr 11/22/21 18:00 11/23/21 06:00 Temperature 97.1 F 97.3 F Pulse Rate 75 79 Blood Pressure 116/57 L 129/90 H Pulse Oximetry 99 99 BMI result Body Mass Index 38.0 Labs Results: 11/24/21 08:08 11/24/21 08:08 Imaging Radiology Impressions: ITS Impressions Abdomen Ultrasound 09/01/21 08:59 IMPRESSION: Slightly echogenic liver. Limited evaluation of the gallbladder as the patient has recently eaten. No gallstone seen. Limited visualization of the pancreas. Hip X-Ray 09/16/21 14:47 IMPRESSION: Moderate to severe left hip arthritis. Medications Medications Current Medications Acetaminophen (Acetaminophen 325 Mg Tablet) 975 mg PO Q6H PRN PRN Reason: Headache/Pain Mild Scale (1-3) Last Admin: 11/19/21 21:25 Dose: 975 mg Documented by: Amlodipine Besylate (Amlodipine Besylate 2.5 Mg Tablet) 2.5 mg PO DAILY [facility]; Protocol Last Admin: 11/23/21 09:44 Dose: 2.5 mg Documented by: Artificial Tears (Artificial Tears 15 Ml Drops) 2 drop EYE-BOTH Q4H PRN PRN Reason: Dry Eyes Last Admin: 11/19/21 08:54 Dose: 2 drop Documented by: Artificial Tears (Artificial Tears 15 Ml Drops) 2 drop EYE-BOTH Q4H PRN PRN Reason: dry eyes Benzocaine (Benzocaine 20 % Oral Gel 9 Gm Tube) 1 appl MUCOUS MEM QID PRN; Protocol PRN Reason: Mouth Sore Pain Last Admin: 08/31/21 03:05 Dose: 1 appl Documented by: Benzocaine (Throat Lozenge, Medicated Lozenge) 1 lozenge MUCOUS MEM Q2H PRN PRN Reason: Sore Throat Calcium Carbonate (Calcium Carbonate 500 Mg Tablet) 500 mg PO DAILY [facility] Last Admin: 11/23/21 09:44 Dose: 500 mg Documented by: Calcium Carbonate (Calcium Carbonate 750 Mg Tab.Chew) 750 mg PO Q4H PRN PRN Reason: Heartburn Last Admin: 11/06/21 20:15 Dose: 750 mg Documented by: Capsaicin (Capsaicin 0.025% Cream 60 Gm Tube) 1 appl TOPICAL QID PRN; Protocol PRN Reason: leg pain Last Admin: 11/23/21 09:42 Dose: 1 appl Documented by: Clotrimazole (Clotrimazole 1 % Cream 15 Gm Tube) 1 appl TOPICAL BID [facility]; Protocol Last Admin: 11/23/21 09:45 Dose: Not Given Documented by: [place] Butter/Zinc Oxide ([place] Butter/Zinc Oxide Supp.Rect) 1 supp [place] BEDTIME PRN PRN Reason: hemorrhoid pain Last Admin: 09/13/21 21:15 Dose: 1 supp Documented by: Cyanocobalamin (Cyanocobalamin (Vitamin B-12) 100 Mcg Tablet) 100 mcg PO DAILY [facility] Last Admin: 11/23/21 09:44 Dose: 100 mcg Documented by: Diclofenac Sodium (Diclofenac Sodium Delayed Rel 50 Mg Tablet.) 50 mg PO BID [facility] Last Admin: 11/23/21 09:44 Dose: 50 mg Documented by: Diphenhydramine HCl (Diphenhydramine Hcl 25 Mg Tablet) 50 mg PO Q6H PRN PRN Reason: eps Last Admin: 09/22/21 23:48 Dose: 50 mg Documented by: Docusate Sodium (Docusate Sodium 100 Mg Capsule) 100 mg PO BID [facility] Last Admin: 11/23/21 09:44 Dose: 100 mg Documented by: Duloxetine HCl (Duloxetine Hcl 20 Mg Capsule.) 40 mg PO DAILY [facility] Last Admin: 11/23/21 09:44 Dose: 40 mg Documented by: Gabapentin (Gabapentin 400 Mg Capsule) 800 mg PO TID [facility] Last Admin: 11/23/21 14:15 Dose: 800 mg Documented by: Gabapentin (Gabapentin 100 Mg Capsule) 100 mg PO TID PRN PRN Reason: neuropathic pain Last Admin: 09/26/21 17:14 Dose: 100 mg Documented by: Lamotrigine (Lamotrigine 25 Mg Tablet) 50 mg PO BEDTIME [facility] Last Admin: 11/22/21 20:40 Dose: 50 mg Documented by: Levothyroxine Sodium (Levothyroxine Sodium 25 Mcg Tablet) 12.5 mcg PO DAILY@0600 [facility] Last Admin: 11/23/21 06:23 Dose: 12.5 mcg Documented by: Lorazepam (Lorazepam 1 Mg Tablet) 1 mg PO DAILY PRN PRN Reason: anxiety Last Admin: 11/22/21 20:41 Dose: 1 mg Documented by: Nicotine (Nicotine 14 Mg Patch.Td24) 14 mg TRANSDERMA DAILY [facility] Last Admin: 11/23/21 09:45 Dose: Not Given Documented by: Nicotine Polacrilex (Nicotine Polacrilex 2 Mg Gum) 4 mg BUCCAL Q1H PRN PRN Reason: Nicotine Cravings Last Admin: 11/23/21 15:58 Dose: 4 mg Documented by: Nf Medication ( Similasan Complete Eye Relief 2 Drop) 2 drop EYE-BOTH BID PRN PRN Reason: eye dryness Last Admin: 11/23/21 09:52 Dose: 2 drop Documented by: Omeprazole (Omeprazole 20 Mg Capsule.) 20 mg PO BID@0630,1630 [facility] Last Admin: 11/23/21 15:57 Dose: 20 mg Documented by: Polyethylene Glycol (Polyethylene Glycol 3350 17 Gm Powd.Pack) 17 gm PO DAILY PRN PRN Reason: Constipation Last Admin: 11/20/21 14:02 Dose: 17 gm Documented by: Psyllium Hydrophilic Mucilloid (Psyllium Seed 3.4 Gm Powd.Pack) 3.4 gm PO DAILY [facility] Last Admin: 11/23/21 09:43 Dose: 3.4 gm Documented by: Quetiapine Fumarate (Quetiapine Fumarate 100 Mg Tablet) 100 mg PO Q6H PRN PRN Reason: anxiety/restlessness Quetiapine Fumarate (Quetiapine Fumarate 300 Mg Tablet) 600 mg PO BEDTIME [facility] Last Admin: 11/22/21 20:41 Dose: 600 mg Documented by: Ropinirole HCl (Ropinirole Hcl 2 Mg Tablet) 2 mg PO DAILY@1900 [facility] Last Admin: 11/22/21 18:19 Dose: 2 mg Documented by: Senna/Docusate Sodium (Sennosides/Docusate Sodium Tablet) 1 tab PO BID [facility] Last Admin: 11/23/21 09:44 Dose: 1 tab Documented by: Simethicone (Simethicone 80 Mg Tab.Chew) 80 mg PO QIDWMHS PRN PRN Reason: indigestion Last Admin: 11/15/21 14:13 Dose: 80 mg Documented by: Sodium Chloride (Sodium Chloride 0.65 % Nasal 44 Ml Sprbtl) 1 spray NOSTRIL-B Q1H PRN PRN Reason: congestion Last Admin: 11/23/21 09:42 Dose: 1 spray Documented by: Trazodone HCl (Trazodone Hcl 25 Mg Halftab) 75 mg PO BEDTIME PRN PRN Reason: insomnia Last Admin: 11/22/21 20:40 Dose: 75 mg Documented by: Trolamine Salicylate/Aloe Vera (Trolamine Salicylate 10%/Aloe Cream 35.4 Gm) 1 appl TOPICAL QID PRN PRN Reason: leg pain Trolamine Salicylate/Aloe Vera (Trolamine Salicylate 10%/Aloe Cream 35.4 Gm) 1 appl TOPICAL QID PRN PRN Reason: mild-mod pain Last Admin: 11/21/21 16:20 Dose: 1 appl Documented by: Vitamin D (Cholecalciferol (Vitamin D3) 25 Mcg Tablet) 25 mcg PO DAILY [facility] Last Admin: 11/23/21 09:44 Dose: 25 mcg Documented by: Allergies Allergies Allergy/AdvReac Type Severity Reaction Status Date / Time aripiprazole [From Abilify] Allergy Unknown Involuntary Verified 08/19/21 07:20 Spasms chlorpromazine Allergy Unknown Nausea and Verified 08/19/21 07:20 [From Thorazine] Vomiting haloperidol [From Haldol] Allergy Unknown Involuntary Verified 08/19/21 07:20 Spasms olanzapine [From Zyprexa] Allergy Unknown Involuntary Verified 08/19/21 07:20 Spasms paliperidone [From Invega] Allergy Unknown Hallucinati Verified 08/19/21 07:20 ons risperidone Allergy Unknown Involuntary Verified 08/19/21 07:20 Spasms Assessment & Plan Assessment & Plan (1) Schizoaffective disorder, bipolar type: Status: Acute Code(s): F25.0 - Schizoaffective disorder, bipolar type (2) Lumbar radiculopathy: Status: Acute Code(s): M54.16 - Radiculopathy, lumbar region (3) Hip pain, left: Status: Acute Code(s): M25.552 - Pain in left hip Plan 11/05/21: Continue current plan. Support in transition 11/06/2021: Continue current regimen and plans. No changes were made today 11/07/2021: Continue current plans and regimen. No changes were made today 11/08/21: Discontinue a.m. Seroquel 100 mg Increase p.m. Seroquel to 700 mg from 600 mg, consolidating dosages per pt request to improve mgt of daytime sedation. 11/09/21: No changes today Throat culture, COVID-19 testing, throat lozenges prn 11/10/21: R/O CKD sx. Nephrology consultation. Discontinue [place] Lamictal 25 mg hs Encourage fluids Synthroid 12.5 mcg daily 11/11/21: No regime changes today. Continue to monitor 11/12/21: Discontinue atarax, lidocaine Requip, a.m. dose, Lidocaine per pt request Change prn Seroquel to 100 mg po q 6 h prn from 200 mg po q 6h prn Continue to monitor physical symptoms 11/13/21: No medication changes 11/14/21: increase ativan to 1 mg QHS for sleep, anxiety 11/15/21: No medication changes today 11/17/21: Support pt in transition to community. 11/18/21: Continue current plan 11/19/21: Continue current plan 11/20: Increase Cymbalta to 40 mg daily 11/21 start Voltaren 50 mg BID. No change in psychotropics. 11/22/21: Decrease Seroquel by 100 mg daily at HS Increase Lamictal to 50 mg daily CBCD, CMP Support through this process of transition. 11/23/21 Declined labs today. Re-ordered for 11/24. Support through transitional process. I spent minutes with the patient and/or on the patient floor today, greater than?50% of which was spent counseling/coordinating care. Patient educated on: therapeutic strategies Informed Consent: understands and further education needed Reason for contiued inpatient stay Substantial Risk for: inability to function and rapid decompensation
[2021-11-23 18:00] VITALS: BP 129/93; PULSE 75; TEMP 36.4; O2SAT 99
[2021-11-23] MEDS: rOPINIRole HCL 2 MG TABLET PO (18:45)
[2021-11-23] MEDS: lamoTRIgine 25 MG TABLET 50 MG PO (20:09)
[2021-11-23] MEDS: QUEtiapine Fumarate 300 MG TABLET 600 MG PO (20:10)
[2021-11-23] MEDS: traZODone HCL 25 MG HALFTAB 75 MG PO (20:10)
[2021-11-23] MEDS: LORazepam 1 MG TABLET PO (20:10)
[2021-11-23] MEDS: polyethylene glycoL 3350 17 GM POWD.PACK PO (20:31)
[2021-11-24 06:00] VITALS: BP 120/68; PULSE 78; TEMP 36.6; O2SAT 96
[2021-11-24] MEDS: Omeprazole 20 MG CAPSULE.DR PO ×2 (06:04→17:22)
[2021-11-24] MEDS: Levothyroxine Sodium 25 MCG TABLET 12.5 MCG PO (06:04)
[2021-11-24 08:41] LABS: MANUAL DIFF FLAG NO
[2021-11-24 08:51] LABS: Basophils Percent Auto 0.9 % (0-2); Eosinophils Absolute Auto 0.2 X10*3/uL (0.0-0.4); Eosinophils Percent Auto 6.3 % (0-4); Hematocrit 37.6 % (37.0-47.0); Hemoglobin 12.5 g/dl (12.0-16.0); Imm Gran Abs Auto 0.02 X10*3/uL (0.00-0.03); Imm Gran Pct Auto 0.6 % (0.0-0.4); Lymphocytes Absolute Auto 1.5 X10*3/uL (1.2-4.9); Lymphocytes Percent Auto 43.8 % (20-40); Mean Corpuscular HGB Conc 33.2 g/dl (31.0-35.0); Mean Corpuscular Hemoglobin 30.6 pg (27.0-33.0); Mean Corpuscular Volume 92.2 fL (80.0-98.0); Mean Platelet Volume 10.6 fL (9.4-12.3); Monocytes Absolute Auto 0.2 X10*3/uL (0.1-1.2); Monocytes Percent Auto 5.7 % (2-11); Neutrophils Absolute Auto 1.4 x10*3/uL (2.0-8.3); Neutrophils Percent Auto 42.7 % (45-73); Platelet Count 256 X10*3/uL (160-400); Red Blood Count 4.08 X10*6/uL (4.20-5.50); Red Cell Distribution Width 12.2 % (11.0-16.0); White Blood Count 3.3 X10*3/uL (4.8-10.8)
[2021-11-24 09:14] LABS: Alanine Aminotransferase 21 U/L (0-31); Albumin Level 4.1 g/dL (3.5-5.0); Alkaline Phosphatase 103 U/L (39-117); Anion Gap 13 (12-20); Aspartate Amino Transferase 14 U/L (5-31); Bilirubin Total 0.4 mg/dL (0.0-1.0); Blood Urea Nitrogen 25 mg/dL (9-16); Calcium 9.8 mg/dL (8.4-10.2); Carbon Dioxide 28 mmol/L (22-29); Chloride 103 mmol/L (96-108); Creatinine Clr Calc Pharmacy 76.3; Estimated Glomerular Filt Rate 56; Glucose Random 125 mg/dL (60-115); Potassium 5.3 mmol/L (3.3-5.1); Sodium 139 mmol/L (135-145); Total Protein 6.6 g/dL (6.5-8.0)
[2021-11-24] MEDS: Sodium Chloride 0.65 % Nasal 44 ML SPRBTL 1 SPRAY NOSTRIL-B ×2 (09:33→20:58)
[2021-11-24] MEDS: Capsaicin 0.025% Cream 60 GM TUBE 1 APPL TOPICAL (09:34)
[2021-11-24 09:35] LABS: Thyroid Stimulating Hormone 1.66 uIU/mL (0.32-4.0)
[2021-11-24] MEDS: DULoxetine HCl 20 MG CAPSULE.DR 40 MG PO (09:35)
[2021-11-24] MEDS: Diclofenac Sodium Delayed Rel 50 MG TABLET.DR PO ×2 (09:35→20:47)
[2021-11-24] MEDS: amLODIPine Besylate 2.5 MG TABLET PO (09:36)
[2021-11-24] MEDS: Cholecalciferol (Vitamin D3) 25 MCG TABLET PO (09:36)
[2021-11-24] MEDS: Sennosides/Docusate Sodium TABLET 1 TAB PO ×2 (09:36→20:46)
[2021-11-24] MEDS: Gabapentin 400 MG CAPSULE 800 MG PO ×3 (09:36→20:46)
[2021-11-24] MEDS: Docusate Sodium 100 MG CAPSULE PO ×2 (09:36→20:46)
[2021-11-24] MEDS: Cyanocobalamin (Vitamin B-12) 100 MCG TABLET PO (09:37)
[2021-11-24] MEDS: Nicotine Polacrilex 2 MG GUM 4 MG BUCCAL ×4 (09:38→20:58)
[2021-11-24] MEDS: polyethylene glycoL 3350 17 GM POWD.PACK PO (09:43)
[2021-11-24] MEDS: Clotrimazole 1 % Cream 15 GM TUBE 1 APPL TOPICAL (09:46)
--- NOTE | 2021-11-24 14:46 | HO.PSYCHPN ---
Subjective Subjective Date of Service: 11/24/21 Reason For Visit: Bipolar, Schizoaffective Subjective Notes: Conditional Voluntary Healthcare Proxy: No Guardianship: No Medical Problems Affecting Mental Status: No Interim History: Blanca discussed decreasing Seroquel another 100 mg as she continues to report excess a.m. sedation. Also asks for Magnesium Citrate prn x 1 for constipation. Reports no SOB, chest discomfort since her period of sx last week. Asks for return of Eucerin cream for her feel. Team report increase time and visability in milieu. She awaits a bed with [facility] [place]. Medication Compliance: Yes Side effects from medications: Yes (morning sedation.) Attending Groups: Intermittent Review of Systems Acute medical concerns: No Medical Review of Systems: unchanged Review of Systems Psychiatric: Reports other (morning sedation, possibly from Seroquel) Mental Status Exam Mental Status Exam Patient Appearance: Disheveled Patient Orientation: Person, Place, Time and Situation Level of Consciousness: Alert Patient Behavior: Talkative, Cooperative and Good Eye Contact Mood Description: Withdrawn Affect Description: Flat Patient Cognition Impaired: No Ability to Follow Directions: Good Speech Pattern: Spontaneous Speech Memory Description: Intact Hallucinations: Auditory (baseline) Delusions: Not Present Perceptual Disturbances: Depersonalization and Derealization Thought Process: Distracted Thought Content: positive for [place] and positive for Circumstantial Depressive Symptoms: Increased Anxiety, Unhappiness and Difficulty Concentrating Abnormal Motor Activity Signs and Symptoms: Restlessness Judgement: Fair Diagnostics Vital Signs (24Hr): Vital Signs - 24 hr 11/23/21 18:00 11/24/21 06:00 Temperature 97.5 F 97.9 F Pulse Rate 75 78 Blood Pressure 129/93 H 120/68 Pulse Oximetry 99 96 BMI result Body Mass Index 38.0 Labs Results: 11/24/21 08:08 11/24/21 08:08 Labs: Laboratory Results - last 48 hr 11/24/21 11/24/21 08:08 08:08 WBC 3.3 L RBC 4.08 L Hgb 12.5 Hct 37.6 MCV 92.2 MCH 30.6 MCHC 33.2 RDW 12.2 Plt Count 256 D MPV 10.6 Immature Gran % (Auto) 0.6 H Neut % (Auto) 42.7 L Lymph % (Auto) 43.8 H [place] % (Auto) 5.7 Eos % (Auto) 6.3 H Baso % (Auto) 0.9 Lymph # (Auto) 1.5 [place] # (Auto) 0.2 Eos # (Auto) 0.2 Baso # (Auto) 0.0 Abs Immat Gran (auto) 0.02 Absolute Neuts (auto) 1.4 L Absolute Nucleated RBC 0.000 Nucleated RBC % (auto) 0.0 Sodium 139 Potassium 5.3 H Chloride 103 Carbon Dioxide 28 Anion Gap 13 BUN 25 H Creatinine 1.03 Estim Creat Clear Calc 76.3 Estimated GFR 56 Random Glucose 125 H Calcium 9.8 Total Bilirubin 0.4 AST 14 ALT 21 Alkaline Phosphatase 103 Total Protein 6.6 Albumin 4.1 TSH 1.66 Imaging Radiology Impressions: ITS Impressions Abdomen Ultrasound 09/01/21 08:59 IMPRESSION: Slightly echogenic liver. Limited evaluation of the gallbladder as the patient has recently eaten. No gallstone seen. Limited visualization of the pancreas. Hip X-Ray 09/16/21 14:47 IMPRESSION: Moderate to severe left hip arthritis. Medications Medications Current Medications Acetaminophen (Acetaminophen 325 Mg Tablet) 975 mg PO Q6H PRN PRN Reason: Headache/Pain Mild Scale (1-3) Last Admin: 11/19/21 21:25 Dose: 975 mg Documented by: Amlodipine Besylate (Amlodipine Besylate 2.5 Mg Tablet) 2.5 mg PO DAILY [facility]; Protocol Last Admin: 11/24/21 09:36 Dose: 2.5 mg Documented by: Artificial Tears (Artificial Tears 15 Ml Drops) 2 drop EYE-BOTH Q4H PRN PRN Reason: Dry Eyes Last Admin: 11/19/21 08:54 Dose: 2 drop Documented by: Artificial Tears (Artificial Tears 15 Ml Drops) 2 drop EYE-BOTH Q4H PRN PRN Reason: dry eyes Benzocaine (Benzocaine 20 % Oral Gel 9 Gm Tube) 1 appl MUCOUS MEM QID PRN; Protocol PRN Reason: Mouth Sore Pain Last Admin: 08/31/21 03:05 Dose: 1 appl Documented by: Benzocaine (Throat Lozenge, Medicated Lozenge) 1 lozenge MUCOUS MEM Q2H PRN PRN Reason: Sore Throat Calcium Carbonate (Calcium Carbonate 500 Mg Tablet) 500 mg PO DAILY [facility] Last Admin: 11/24/21 09:36 Dose: 500 mg Documented by: Calcium Carbonate (Calcium Carbonate 750 Mg Tab.Chew) 750 mg PO Q4H PRN PRN Reason: Heartburn Last Admin: 11/06/21 20:15 Dose: 750 mg Documented by: Capsaicin (Capsaicin 0.025% Cream 60 Gm Tube) 1 appl TOPICAL QID PRN; Protocol PRN Reason: leg pain Last Admin: 11/24/21 09:34 Dose: 1 appl Documented by: Clotrimazole (Clotrimazole 1 % Cream 15 Gm Tube) 1 appl TOPICAL BID [facility]; Protocol Last Admin: 11/24/21 09:46 Dose: 1 appl Documented by: [place] Butter/Zinc Oxide ([place] Butter/Zinc Oxide Supp.Rect) 1 supp [place] BEDTIME PRN PRN Reason: hemorrhoid pain Last Admin: 09/13/21 21:15 Dose: 1 supp Documented by: Cyanocobalamin (Cyanocobalamin (Vitamin B-12) 100 Mcg Tablet) 100 mcg PO DAILY [facility] Last Admin: 11/24/21 09:37 Dose: 100 mcg Documented by: Diclofenac Sodium (Diclofenac Sodium Delayed Rel 50 Mg Tablet.) 50 mg PO BID [facility] Last Admin: 11/24/21 09:35 Dose: 50 mg Documented by: Diphenhydramine HCl (Diphenhydramine Hcl 25 Mg Tablet) 50 mg PO Q6H PRN PRN Reason: eps Last Admin: 09/22/21 23:48 Dose: 50 mg Documented by: Docusate Sodium (Docusate Sodium 100 Mg Capsule) 100 mg PO BID [facility] Last Admin: 11/24/21 09:36 Dose: 100 mg Documented by: Duloxetine HCl (Duloxetine Hcl 20 Mg Capsule.) 40 mg PO DAILY [facility] Last Admin: 11/24/21 09:35 Dose: 40 mg Documented by: Gabapentin (Gabapentin 400 Mg Capsule) 800 mg PO TID [facility] Last Admin: 11/24/21 14:17 Dose: 800 mg Documented by: Gabapentin (Gabapentin 100 Mg Capsule) 100 mg PO TID PRN PRN Reason: neuropathic pain Last Admin: 09/26/21 17:14 Dose: 100 mg Documented by: Lamotrigine (Lamotrigine 25 Mg Tablet) 50 mg PO BEDTIME [facility] Last Admin: 11/23/21 20:09 Dose: 50 mg Documented by: Levothyroxine Sodium (Levothyroxine Sodium 25 Mcg Tablet) 12.5 mcg PO DAILY@0600 [facility] Last Admin: 11/24/21 06:04 Dose: 12.5 mcg Documented by: Lorazepam (Lorazepam 1 Mg Tablet) 1 mg PO DAILY PRN PRN Reason: anxiety Last Admin: 11/23/21 20:10 Dose: 1 mg Documented by: Magnesium Citrate (Magnesium Citrate 300 Ml Solution) 300 ml PO ONCE PRN PRN Reason: constipation Multi-Ingred Cream/Lotion/Oil/Oint (Mineral Oil/Petrolatum,White 106 Gm Tube) 1 appl TOPICAL BID [facility]; Protocol Nicotine (Nicotine 14 Mg Patch.Td24) 14 mg TRANSDERMA DAILY [facility] Last Admin: 11/24/21 09:37 Dose: Not Given Documented by: Nicotine Polacrilex (Nicotine Polacrilex 2 Mg Gum) 4 mg BUCCAL Q1H PRN PRN Reason: Nicotine Cravings Last Admin: 11/24/21 14:17 Dose: 4 mg Documented by: Nf Medication ( Similasan Complete Eye Relief 2 Drop) 2 drop EYE-BOTH BID PRN PRN Reason: eye dryness Last Admin: 11/24/21 09:33 Dose: 2 drop Documented by: Omeprazole (Omeprazole 20 Mg Capsule.Dr) 20 mg PO BID@0630,1630 [facility] Last Admin: 11/24/21 06:04 Dose: 20 mg Documented by: Polyethylene Glycol (Polyethylene Glycol 3350 17 Gm Powd.Pack) 17 gm PO DAILY PRN PRN Reason: Constipation Last Admin: 11/24/21 09:43 Dose: 17 gm Documented by: Psyllium Hydrophilic Mucilloid (Psyllium Seed 3.4 Gm Powd.Pack) 3.4 gm PO DAILY [facility] Last Admin: 11/24/21 09:38 Dose: 3.4 gm Documented by: Quetiapine Fumarate (Quetiapine Fumarate 100 Mg Tablet) 100 mg PO Q6H PRN PRN Reason: anxiety/restlessness Quetiapine Fumarate (Quetiapine Fumarate 100 Mg Tablet) 500 mg PO BEDTIME [facility] Ropinirole HCl (Ropinirole Hcl 2 Mg Tablet) 2 mg PO DAILY@1900 [facility] Last Admin: 11/23/21 18:45 Dose: 2 mg Documented by: Senna/Docusate Sodium (Sennosides/Docusate Sodium Tablet) 1 tab PO BID [facility] Last Admin: 11/24/21 09:36 Dose: 1 tab Documented by: Simethicone (Simethicone 80 Mg Tab.Chew) 80 mg PO QIDWMHS PRN PRN Reason: indigestion Last Admin: 11/15/21 14:13 Dose: 80 mg Documented by: Sodium Chloride (Sodium Chloride 0.65 % Nasal 44 Ml Sprbtl) 1 spray NOSTRIL-B Q1H PRN PRN Reason: congestion Last Admin: 11/24/21 09:33 Dose: 1 spray Documented by: Trazodone HCl (Trazodone Hcl 25 Mg Halftab) 75 mg PO BEDTIME PRN PRN Reason: insomnia Last Admin: 11/23/21 20:10 Dose: 75 mg Documented by: Trolamine Salicylate/Aloe Vera (Trolamine Salicylate 10%/Aloe Cream 35.4 Gm) 1 appl TOPICAL QID PRN PRN Reason: leg pain Trolamine Salicylate/Aloe Vera (Trolamine Salicylate 10%/Aloe Cream 35.4 Gm) 1 appl TOPICAL QID PRN PRN Reason: mild-mod pain Last Admin: 11/21/21 16:20 Dose: 1 appl Documented by: Vitamin D (Cholecalciferol (Vitamin D3) 25 Mcg Tablet) 25 mcg PO DAILY [facility] Last Admin: 11/24/21 09:36 Dose: 25 mcg Documented by: Allergies Allergies Allergy/AdvReac Type Severity Reaction Status Date / Time aripiprazole [From Abilify] Allergy Unknown Involuntary Verified 08/19/21 07:20 Spasms chlorpromazine Allergy Unknown Nausea and Verified 08/19/21 07:20 [From Thorazine] Vomiting haloperidol [From Haldol] Allergy Unknown Involuntary Verified 08/19/21 07:20 Spasms olanzapine [From Zyprexa] Allergy Unknown Involuntary Verified 08/19/21 07:20 Spasms paliperidone [From Invega] Allergy Unknown Hallucinati Verified 08/19/21 07:20 ons risperidone Allergy Unknown Involuntary Verified 08/19/21 07:20 Spasms Assessment & Plan Assessment & Plan (1) Schizoaffective disorder, bipolar type: Status: Acute Code(s): F25.0 - Schizoaffective disorder, bipolar type (2) Lumbar radiculopathy: Status: Acute Code(s): M54.16 - Radiculopathy, lumbar region (3) Hip pain, left: Status: Acute Code(s): M25.552 - Pain in left hip Plan 11/05/21: Continue current plan. Support in transition 11/06/2021: Continue current regimen and plans. No changes were made today 11/07/2021: Continue current plans and regimen. No changes were made today 11/08/21: Discontinue a.m. Seroquel 100 mg Increase p.m. Seroquel to 700 mg from 600 mg, consolidating dosages per pt request to improve mgt of daytime sedation. 11/09/21: No changes today Throat culture, COVID-19 testing, throat lozenges prn 11/10/21: R/O CKD sx. Nephrology consultation. Discontinue [place] Lamictal 25 mg hs Encourage fluids Synthroid 12.5 mcg daily 11/11/21: No regime changes today. Continue to monitor 11/12/21: Discontinue atarax, lidocaine Requip, a.m. dose, Lidocaine per pt request Change prn Seroquel to 100 mg po q 6 h prn from 200 mg po q 6h prn Continue to monitor physical symptoms 11/13/21: No medication changes 11/14/21: increase ativan to 1 mg QHS for sleep, anxiety 11/15/21: No medication changes today 11/17/21: Support pt in transition to community. 11/18/21: Continue current plan 11/19/21: Continue current plan 11/20: Increase Cymbalta to 40 mg daily 11/21 start Voltaren 50 mg BID. No change in psychotropics. 11/22/21: Decrease Seroquel by 100 mg daily at HS Increase Lamictal to 50 mg daily CBCD, CMP Support through this process of transition. 11/23/21 Declined labs today. Re-ordered for 11/24. Support through transitional process. 11/24/21 Decrease Seroquel to 500 mg HS Magnesium Citrate x 1 prn constipation Eucerin Cream to feet. I spent minutes with the patient and/or on the patient floor today, greater than?50% of which was spent counseling/coordinating care. Reason for contiued inpatient stay Substantial Risk for: stable for discharge
[2021-11-24] MEDS: LORazepam 1 MG TABLET PO (18:40)
[2021-11-24] MEDS: rOPINIRole HCL 2 MG TABLET PO (18:40)
[2021-11-24 20:35] VITALS: BP 130/79; PULSE 72; TEMP 36.3; O2SAT 96
[2021-11-24] MEDS: lamoTRIgine 25 MG TABLET 50 MG PO (20:46)
[2021-11-24] MEDS: traZODone HCL 25 MG HALFTAB 75 MG PO (20:47)
[2021-11-24] MEDS: QUEtiapine Fumarate 100 MG TABLET 500 MG PO (20:48)
[2021-11-24 21:15] VITALS: BP 130/62; PULSE 67; TEMP 35.8; O2SAT 96
[2021-11-25 06:00] VITALS: BP 138/78; PULSE 88; RESP 16; TEMP 36.1; O2SAT 96
[2021-11-25] MEDS: Levothyroxine Sodium 25 MCG TABLET 12.5 MCG PO (06:03)
[2021-11-25] MEDS: Omeprazole 20 MG CAPSULE.DR PO ×2 (06:04→16:38)
[2021-11-25] MEDS: Diclofenac Sodium Delayed Rel 50 MG TABLET.DR PO ×2 (08:50→20:24)
[2021-11-25] MEDS: amLODIPine Besylate 2.5 MG TABLET PO (08:50)
[2021-11-25] MEDS: Sennosides/Docusate Sodium TABLET 1 TAB PO ×2 (08:50→20:24)
[2021-11-25] MEDS: Docusate Sodium 100 MG CAPSULE PO ×2 (08:50→20:23)
[2021-11-25] MEDS: Gabapentin 400 MG CAPSULE 800 MG PO ×3 (08:51→20:23)
[2021-11-25] MEDS: DULoxetine HCl 20 MG CAPSULE.DR 40 MG PO (08:51)
[2021-11-25] MEDS: Cyanocobalamin (Vitamin B-12) 100 MCG TABLET PO (08:51)
[2021-11-25] MEDS: Nicotine Polacrilex 2 MG GUM 4 MG BUCCAL ×3 (08:51→20:35)
[2021-11-25] MEDS: Cholecalciferol (Vitamin D3) 25 MCG TABLET PO (08:51)
[2021-11-25] MEDS: Sodium Chloride 0.65 % Nasal 44 ML SPRBTL 1 SPRAY NOSTRIL-B ×2 (10:26→20:35)
[2021-11-25] MEDS: Magnesium Citrate 300 ML SOLUTION PO (10:59)
--- NOTE | 2021-11-25 13:24 | HO.PSYCHPN ---
Subjective Subjective Date of Service: 11/25/21 Reason For Visit: Bipolar, Schizoaffective Subjective Notes: Conditional Voluntary Healthcare Proxy: No Guardianship: No Medical Problems Affecting Mental Status: No Interim History: Blanca reports feeling less a.m. sedation with medication adjustiments. Spending time in room, reading, listening to music. Mindful and watchful of her room-mate who is struggling-encouraging her to allow care, stating she had been manic too and they were able to help if you just listen and follow the plan. Empathic. Discussed frustration with placement issues, it is like no one wants me, but I feel like this is my home. Medication Compliance: Yes Side effects from medications: No Attending Groups: Intermittent Review of Systems Acute medical concerns: No Medical Review of Systems: unchanged Review of Systems Psychiatric: Reports no additional psychiatric complaints and Reports anxiety (due to placement delays and issues) Mental Status Exam Mental Status Exam Patient Appearance: Appropriate Patient Orientation: Person, Place, Time and Situation Level of Consciousness: Alert Patient Behavior: Talkative, Cooperative and Good Eye Contact Mood Description: Withdrawn Affect Description: Flat Patient Cognition Impaired: No Ability to Follow Directions: Good Speech Pattern: Spontaneous Speech Memory Description: Intact Delusions: Not Present Perceptual Disturbances: Depersonalization and Derealization Thought Process: Distracted Thought Content: positive for [place] and positive for Circumstantial Depressive Symptoms: Increased Anxiety, Unhappiness and Difficulty Concentrating Abnormal Motor Activity Signs and Symptoms: Restlessness Judgement: Fair Diagnostics Vital Signs (24Hr): Vital Signs - 24 hr 11/24/21 20:35 11/24/21 21:15 11/25/21 06:00 Temperature 97.4 F 96.5 F L 97 F Pulse Rate 72 67 88 Respiratory Rate 16 Blood Pressure 130/79 130/62 138/78 Pulse Oximetry 96 96 96 BMI result Body Mass Index 38.0 Labs Results: 11/24/21 08:08 11/24/21 08:08 Labs: Laboratory Results - last 48 hr 11/24/21 11/24/21 08:08 08:08 WBC 3.3 L RBC 4.08 L Hgb 12.5 Hct 37.6 MCV 92.2 MCH 30.6 MCHC 33.2 RDW 12.2 Plt Count 256 D MPV 10.6 Immature Gran % (Auto) 0.6 H Neut % (Auto) 42.7 L Lymph % (Auto) 43.8 H Luce % (Auto) 5.7 Eos % (Auto) 6.3 H Baso % (Auto) 0.9 Lymph # (Auto) 1.5 Luce # (Auto) 0.2 Eos # (Auto) 0.2 Baso # (Auto) 0.0 Abs Immat Gran (auto) 0.02 Absolute Neuts (auto) 1.4 L Absolute Nucleated RBC 0.000 Nucleated RBC % (auto) 0.0 Sodium 139 Potassium 5.3 H Chloride 103 Carbon Dioxide 28 Anion Gap 13 BUN 25 H Creatinine 1.03 Estim Creat Clear Calc 76.3 Estimated GFR 56 Random Glucose 125 H Calcium 9.8 Total Bilirubin 0.4 AST 14 ALT 21 Alkaline Phosphatase 103 Total Protein 6.6 Albumin 4.1 TSH 1.66 Imaging Radiology Impressions: ITS Impressions Abdomen Ultrasound 09/01/21 08:59 IMPRESSION: Slightly echogenic liver. Limited evaluation of the gallbladder as the patient has recently eaten. No gallstone seen. Limited visualization of the pancreas. Hip X-Ray 09/16/21 14:47 IMPRESSION: Moderate to severe left hip arthritis. Medications Medications Current Medications Acetaminophen (Acetaminophen 325 Mg Tablet) 975 mg PO Q6H PRN PRN Reason: Headache/Pain Mild Scale (1-3) Last Admin: 11/19/21 21:25 Dose: 975 mg Documented by: Amlodipine Besylate (Amlodipine Besylate 2.5 Mg Tablet) 2.5 mg PO DAILY [facility]; Protocol Last Admin: 11/25/21 08:50 Dose: 2.5 mg Documented by: Artificial Tears (Artificial Tears 15 Ml Drops) 2 drop EYE-BOTH Q4H PRN PRN Reason: Dry Eyes Last Admin: 11/19/21 08:54 Dose: 2 drop Documented by: Artificial Tears (Artificial Tears 15 Ml Drops) 2 drop EYE-BOTH Q4H PRN PRN Reason: dry eyes Benzocaine (Benzocaine 20 % Oral Gel 9 Gm Tube) 1 appl MUCOUS MEM QID PRN; Protocol PRN Reason: Mouth Sore Pain Last Admin: 08/31/21 03:05 Dose: 1 appl Documented by: Benzocaine (Throat Lozenge, Medicated Lozenge) 1 lozenge MUCOUS MEM Q2H PRN PRN Reason: Sore Throat Calcium Carbonate (Calcium Carbonate 500 Mg Tablet) 500 mg PO DAILY [facility] Last Admin: 11/25/21 08:51 Dose: 500 mg Documented by: Calcium Carbonate (Calcium Carbonate 750 Mg Tab.Chew) 750 mg PO Q4H PRN PRN Reason: Heartburn Last Admin: 11/06/21 20:15 Dose: 750 mg Documented by: Capsaicin (Capsaicin 0.025% Cream 60 Gm Tube) 1 appl TOPICAL QID PRN; Protocol PRN Reason: leg pain Last Admin: 11/24/21 09:34 Dose: 1 appl Documented by: Clotrimazole (Clotrimazole 1 % Cream 15 Gm Tube) 1 appl TOPICAL BID [facility]; Protocol Last Admin: 11/25/21 09:23 Dose: Not Given Documented by: [place] Butter/Zinc Oxide ([place] Butter/Zinc Oxide Supp.Rect) 1 supp [place] BEDTIME PRN PRN Reason: hemorrhoid pain Last Admin: 09/13/21 21:15 Dose: 1 supp Documented by: Cyanocobalamin (Cyanocobalamin (Vitamin B-12) 100 Mcg Tablet) 100 mcg PO DAILY [facility] Last Admin: 11/25/21 08:51 Dose: 100 mcg Documented by: Diclofenac Sodium (Diclofenac Sodium Delayed Rel 50 Mg Tablet.) 50 mg PO BID [facility] Last Admin: 11/25/21 08:50 Dose: 50 mg Documented by: Diphenhydramine HCl (Diphenhydramine Hcl 25 Mg Tablet) 50 mg PO Q6H PRN PRN Reason: eps Last Admin: 09/22/21 23:48 Dose: 50 mg Documented by: Docusate Sodium (Docusate Sodium 100 Mg Capsule) 100 mg PO BID [facility] Last Admin: 11/25/21 08:50 Dose: 100 mg Documented by: Duloxetine HCl (Duloxetine Hcl 20 Mg Capsule.) 40 mg PO DAILY [facility] Last Admin: 11/25/21 08:51 Dose: 40 mg Documented by: Gabapentin (Gabapentin 400 Mg Capsule) 800 mg PO TID [facility] Last Admin: 11/25/21 08:51 Dose: 800 mg Documented by: Gabapentin (Gabapentin 100 Mg Capsule) 100 mg PO TID PRN PRN Reason: neuropathic pain Last Admin: 09/26/21 17:14 Dose: 100 mg Documented by: Lamotrigine (Lamotrigine 25 Mg Tablet) 50 mg PO BEDTIME [facility] Last Admin: 11/24/21 20:46 Dose: 50 mg Documented by: Levothyroxine Sodium (Levothyroxine Sodium 25 Mcg Tablet) 12.5 mcg PO DAILY@0600 [facility] Last Admin: 11/25/21 06:03 Dose: 12.5 mcg Documented by: Lorazepam (Lorazepam 1 Mg Tablet) 1 mg PO DAILY PRN PRN Reason: anxiety Last Admin: 11/24/21 18:40 Dose: 1 mg Documented by: Multi-Ingred Cream/Lotion/Oil/Oint (Mineral Oil/Petrolatum,White 106 Gm Tube) 1 appl TOPICAL BID [facility]; Protocol Last Admin: 11/25/21 09:23 Dose: Not Given Documented by: Nicotine (Nicotine 14 Mg Patch.Td24) 14 mg TRANSDERMA DAILY [facility] Last Admin: 11/25/21 09:24 Dose: Not Given Documented by: Nicotine Polacrilex (Nicotine Polacrilex 2 Mg Gum) 4 mg BUCCAL Q1H PRN PRN Reason: Nicotine Cravings Last Admin: 11/25/21 08:51 Dose: 4 mg Documented by: Nf Medication ( Similasan Complete Eye Relief 2 Drop) 2 drop EYE-BOTH BID PRN PRN Reason: eye dryness Last Admin: 11/25/21 10:26 Dose: 2 drop Documented by: Omeprazole (Omeprazole 20 Mg Capsule.Dr) 20 mg PO BID@0630,1630 [facility] Last Admin: 11/25/21 06:04 Dose: 20 mg Documented by: Polyethylene Glycol (Polyethylene Glycol 3350 17 Gm Powd.Pack) 17 gm PO DAILY PRN PRN Reason: Constipation Last Admin: 11/24/21 09:43 Dose: 17 gm Documented by: Psyllium Hydrophilic Mucilloid (Psyllium Seed 3.4 Gm Powd.Pack) 3.4 gm PO DAILY [facility] Last Admin: 11/25/21 08:52 Dose: 3.4 gm Documented by: Quetiapine Fumarate (Quetiapine Fumarate 100 Mg Tablet) 100 mg PO Q6H PRN PRN Reason: anxiety/restlessness Quetiapine Fumarate (Quetiapine Fumarate 100 Mg Tablet) 500 mg PO BEDTIME [facility] Last Admin: 11/24/21 20:48 Dose: 500 mg Documented by: Ropinirole HCl (Ropinirole Hcl 2 Mg Tablet) 2 mg PO DAILY@1900 [facility] Last Admin: 11/24/21 18:40 Dose: 2 mg Documented by: Senna/Docusate Sodium (Sennosides/Docusate Sodium Tablet) 1 tab PO BID [facility] Last Admin: 11/25/21 08:50 Dose: 1 tab Documented by: Simethicone (Simethicone 80 Mg Tab.Chew) 80 mg PO QIDWMHS PRN PRN Reason: indigestion Last Admin: 11/15/21 14:13 Dose: 80 mg Documented by: Sodium Chloride (Sodium Chloride 0.65 % Nasal 44 Ml Sprbtl) 1 spray NOSTRIL-B Q1H PRN PRN Reason: congestion Last Admin: 11/25/21 10:26 Dose: 1 spray Documented by: Trazodone HCl (Trazodone Hcl 25 Mg Halftab) 75 mg PO BEDTIME PRN PRN Reason: insomnia Last Admin: 11/24/21 20:47 Dose: 75 mg Documented by: Trolamine Salicylate/Aloe Vera (Trolamine Salicylate 10%/Aloe Cream 35.4 Gm) 1 appl TOPICAL QID PRN PRN Reason: leg pain Trolamine Salicylate/Aloe Vera (Trolamine Salicylate 10%/Aloe Cream 35.4 Gm) 1 appl TOPICAL QID PRN PRN Reason: mild-mod pain Last Admin: 11/21/21 16:20 Dose: 1 appl Documented by: Vitamin D (Cholecalciferol (Vitamin D3) 25 Mcg Tablet) 25 mcg PO DAILY [facility] Last Admin: 11/25/21 08:51 Dose: 25 mcg Documented by: Allergies Allergies Allergy/AdvReac Type Severity Reaction Status Date / Time aripiprazole [From Abilify] Allergy Unknown Involuntary Verified 08/19/21 07:20 Spasms chlorpromazine Allergy Unknown Nausea and Verified 08/19/21 07:20 [From Thorazine] Vomiting haloperidol [From Haldol] Allergy Unknown Involuntary Verified 08/19/21 07:20 Spasms olanzapine [From Zyprexa] Allergy Unknown Involuntary Verified 08/19/21 07:20 Spasms paliperidone [From Invega] Allergy Unknown Hallucinati Verified 08/19/21 07:20 ons risperidone Allergy Unknown Involuntary Verified 08/19/21 07:20 Spasms Assessment & Plan Assessment & Plan (1) Schizoaffective disorder, bipolar type: Status: Acute Code(s): F25.0 - Schizoaffective disorder, bipolar type (2) Lumbar radiculopathy: Status: Acute Code(s): M54.16 - Radiculopathy, lumbar region (3) Hip pain, left: Status: Acute Code(s): M25.552 - Pain in left hip Plan 11/05/21: Continue current plan. Support in transition 11/06/2021: Continue current regimen and plans. No changes were made today 11/07/2021: Continue current plans and regimen. No changes were made today 11/08/21: Discontinue a.m. Seroquel 100 mg Increase p.m. Seroquel to 700 mg from 600 mg, consolidating dosages per pt request to improve mgt of daytime sedation. 11/09/21: No changes today Throat culture, COVID-19 testing, throat lozenges prn 11/10/21: R/O CKD sx. Nephrology consultation. Discontinue [place] Lamictal 25 mg hs Encourage fluids Synthroid 12.5 mcg daily 11/11/21: No regime changes today. Continue to monitor 11/12/21: Discontinue atarax, lidocaine Requip, a.m. dose, Lidocaine per pt request Change prn Seroquel to 100 mg po q 6 h prn from 200 mg po q 6h prn Continue to monitor physical symptoms 11/13/21: No medication changes 11/14/21: increase ativan to 1 mg QHS for sleep, anxiety 11/15/21: No medication changes today 11/17/21: Support pt in transition to community. 11/18/21: Continue current plan 11/19/21: Continue current plan 11/20: Increase Cymbalta to 40 mg daily 11/21 start Voltaren 50 mg BID. No change in psychotropics. 11/22/21: Decrease Seroquel by 100 mg daily at HS Increase Lamictal to 50 mg daily CBCD, CMP Support through this process of transition. 11/23/21 Declined labs today. Re-ordered for 11/24. Support through transitional process. 11/24/21 Decrease Seroquel to 500 mg HS Magnesium Citrate x 1 prn constipation Eucerin Cream to feet. 11/25/21 Continue current plan of care Support in transition. I spent minutes with the patient and/or on the patient floor today, greater than?50% of which was spent counseling/coordinating care. Patient educated on: medication risk/benefits and therapeutic strategies Informed Consent: understands Reason for contiued inpatient stay Substantial Risk for: stable for discharge
[2021-11-25] MEDS: LORazepam 1 MG TABLET PO (16:38)
[2021-11-25 18:00] VITALS: BP 122/82; PULSE 101; RESP 16; TEMP 35.9; O2SAT 96
[2021-11-25] MEDS: QUEtiapine Fumarate 100 MG TABLET 500 MG PO (20:23)
[2021-11-25] MEDS: traZODone HCL 25 MG HALFTAB 75 MG PO (20:24)
[2021-11-25] MEDS: rOPINIRole HCL 2 MG TABLET PO (20:25)
[2021-11-25] MEDS: lamoTRIgine 25 MG TABLET 50 MG PO (20:25)
[2021-11-26 06:00] VITALS: BP 136/88; PULSE 90; RESP 14; TEMP 36.6; O2SAT 97
[2021-11-26] MEDS: Omeprazole 20 MG CAPSULE.DR PO ×2 (06:29→16:21)
[2021-11-26] MEDS: Levothyroxine Sodium 25 MCG TABLET 12.5 MCG PO (06:29)
[2021-11-26] MEDS: DULoxetine HCl 20 MG CAPSULE.DR 40 MG PO (09:00)
[2021-11-26] MEDS: Docusate Sodium 100 MG CAPSULE PO ×2 (09:00→20:18)
[2021-11-26] MEDS: Gabapentin 400 MG CAPSULE 800 MG PO ×3 (09:00→20:18)
[2021-11-26] MEDS: Diclofenac Sodium Delayed Rel 50 MG TABLET.DR PO ×2 (09:00→20:17)
[2021-11-26] MEDS: Cholecalciferol (Vitamin D3) 25 MCG TABLET PO (09:00)
[2021-11-26] MEDS: amLODIPine Besylate 2.5 MG TABLET PO (09:00)
[2021-11-26] MEDS: Nicotine Polacrilex 2 MG GUM 4 MG BUCCAL ×4 (09:01→20:45)
[2021-11-26] MEDS: Cyanocobalamin (Vitamin B-12) 100 MCG TABLET PO (09:01)
[2021-11-26] MEDS: Sennosides/Docusate Sodium TABLET 1 TAB PO ×2 (09:01→20:18)
[2021-11-26] MEDS: Mineral Oil/Petrolatum,White 106 GM Tube 1 APPL TOPICAL ×2 (14:19→20:49)
[2021-11-26] MEDS: Sodium Chloride 0.65 % Nasal 44 ML SPRBTL 1 SPRAY NOSTRIL-B ×2 (14:19→16:20)
--- NOTE | 2021-11-26 15:17 | P.PNPSI_ITS ---
Subjective Subjective Date of Service: 11/26/21 Reason For Visit: Bipolar, Schizoaffective Subjective Notes: Conditional Voluntary Healthcare Proxy: No Guardianship: No Medical Problems Affecting Mental Status: No Interim History: Blanca and team learned late in the day yesterday that she has a warrant for arrest due to animal cruelty as she missed a court date while hospitalized. This is a reported felony charge which occurred while she was manic prior to her admission and team reports she will need to present to the court with documentation to validate admission. She discussed her distress over this along with her love and respect of animals, along with her frustration with illness and subsequent behaviors. Medication Compliance: Yes Side effects from medications: No Attending Groups: No Review of Systems Acute medical concerns: No Medical Review of Systems: unchanged Review of Systems Psychiatric: Reports anxiety and Reports other (guilt and remorse regarding behavioral sx during vasquez) Mental Status Exam Mental Status Exam Patient Appearance: Appropriate Patient Orientation: Person, Place, Time and Situation Level of Consciousness: Alert Patient Behavior: Talkative, Cooperative and Good Eye Contact Mood Description: Withdrawn Affect Description: Flat Patient Cognition Impaired: No Ability to Follow Directions: Good Speech Pattern: Spontaneous Speech Memory Description: Intact Delusions: Not Present Perceptual Disturbances: Depersonalization and Derealization Thought Process: Distracted Thought Content: positive for [place] and positive for Circumstantial Depressive Symptoms: Increased Anxiety, Unhappiness and Difficulty Concentrating Judgement: Fair Diagnostics Vital Signs (24Hr): Vital Signs - 24 hr 11/25/21 18:00 11/26/21 06:00 Temperature 96.7 F L 98 F Pulse Rate 101 H 90 Respiratory Rate 16 14 Blood Pressure 122/82 136/88 Pulse Oximetry 96 97 BMI result Body Mass Index 38.0 Labs Results: 11/24/21 08:08 11/24/21 08:08 Imaging Radiology Impressions: ITS Impressions Abdomen Ultrasound 09/01/21 08:59 IMPRESSION: Slightly echogenic liver. Limited evaluation of the gallbladder as the patient has recently eaten. No gallstone seen. Limited visualization of the pancreas. Hip X-Ray 09/16/21 14:47 IMPRESSION: Moderate to severe left hip arthritis. Medications Medications Current Medications Acetaminophen (Acetaminophen 325 Mg Tablet) 975 mg PO Q6H PRN PRN Reason: Headache/Pain Mild Scale (1-3) Last Admin: 11/19/21 21:25 Dose: 975 mg Documented by: Amlodipine Besylate (Amlodipine Besylate 2.5 Mg Tablet) 2.5 mg PO DAILY [facility]; Protocol Last Admin: 11/26/21 09:00 Dose: 2.5 mg Documented by: Artificial Tears (Artificial Tears 15 Ml Drops) 2 drop EYE-BOTH Q4H PRN PRN Reason: Dry Eyes Last Admin: 11/19/21 08:54 Dose: 2 drop Documented by: Artificial Tears (Artificial Tears 15 Ml Drops) 2 drop EYE-BOTH Q4H PRN PRN Reason: dry eyes Benzocaine (Benzocaine 20 % Oral Gel 9 Gm Tube) 1 appl MUCOUS MEM QID PRN; Protocol PRN Reason: Mouth Sore Pain Last Admin: 08/31/21 03:05 Dose: 1 appl Documented by: Benzocaine (Throat Lozenge, Medicated Lozenge) 1 lozenge MUCOUS MEM Q2H PRN PRN Reason: Sore Throat Calcium Carbonate (Calcium Carbonate 500 Mg Tablet) 500 mg PO DAILY [facility] Last Admin: 11/26/21 09:01 Dose: 500 mg Documented by: Calcium Carbonate (Calcium Carbonate 750 Mg Tab.Chew) 750 mg PO Q4H PRN PRN Reason: Heartburn Last Admin: 11/06/21 20:15 Dose: 750 mg Documented by: Capsaicin (Capsaicin 0.025% Cream 60 Gm Tube) 1 appl TOPICAL QID PRN; Protocol PRN Reason: leg pain Last Admin: 11/24/21 09:34 Dose: 1 appl Documented by: Clotrimazole (Clotrimazole 1 % Cream 15 Gm Tube) 1 appl TOPICAL BID [facility]; Protocol Last Admin: 11/26/21 09:01 Dose: Not Given Documented by: [place] Butter/Zinc Oxide ([place] Butter/Zinc Oxide Supp.Rect) 1 supp [place] BEDTIME PRN PRN Reason: hemorrhoid pain Last Admin: 09/13/21 21:15 Dose: 1 supp Documented by: Cyanocobalamin (Cyanocobalamin (Vitamin B-12) 100 Mcg Tablet) 100 mcg PO DAILY [facility] Last Admin: 11/26/21 09:01 Dose: 100 mcg Documented by: Diclofenac Sodium (Diclofenac Sodium Delayed Rel 50 Mg Tablet.Dr) 50 mg PO BID [facility] Last Admin: 11/26/21 09:00 Dose: 50 mg Documented by: Diphenhydramine HCl (Diphenhydramine Hcl 25 Mg Tablet) 50 mg PO Q6H PRN PRN Reason: eps Last Admin: 09/22/21 23:48 Dose: 50 mg Documented by: Docusate Sodium (Docusate Sodium 100 Mg Capsule) 100 mg PO BID [facility] Last Admin: 11/26/21 09:00 Dose: 100 mg Documented by: Duloxetine HCl (Duloxetine Hcl 20 Mg Capsule.) 40 mg PO DAILY [facility] Last Admin: 11/26/21 09:00 Dose: 40 mg Documented by: Gabapentin (Gabapentin 400 Mg Capsule) 800 mg PO TID [facility] Last Admin: 11/26/21 14:09 Dose: 800 mg Documented by: Gabapentin (Gabapentin 100 Mg Capsule) 100 mg PO TID PRN PRN Reason: neuropathic pain Last Admin: 09/26/21 17:14 Dose: 100 mg Documented by: Lamotrigine (Lamotrigine 25 Mg Tablet) 50 mg PO BEDTIME [facility] Last Admin: 11/25/21 20:25 Dose: 50 mg Documented by: Levothyroxine Sodium (Levothyroxine Sodium 25 Mcg Tablet) 12.5 mcg PO DAILY@0600 [facility] Last Admin: 11/26/21 06:29 Dose: 12.5 mcg Documented by: Lorazepam (Lorazepam 1 Mg Tablet) 1 mg PO DAILY PRN PRN Reason: anxiety Last Admin: 11/25/21 16:38 Dose: 1 mg Documented by: Multi-Ingred Cream/Lotion/Oil/Oint (Mineral Oil/Petrolatum,White 106 Gm Tube) 1 appl TOPICAL BID [facility]; Protocol Last Admin: 11/26/21 14:19 Dose: 1 appl Documented by: Nicotine (Nicotine 14 Mg Patch.Td24) 14 mg TRANSDERMA DAILY [facility] Last Admin: 11/26/21 09:13 Dose: Not Given Documented by: Nicotine Polacrilex (Nicotine Polacrilex 2 Mg Gum) 4 mg BUCCAL Q1H PRN PRN Reason: Nicotine Cravings Last Admin: 11/26/21 14:09 Dose: 4 mg Documented by: Nf Medication ( Similasan Complete Eye Relief 2 Drop) 2 drop EYE-BOTH BID PRN PRN Reason: eye dryness Last Admin: 11/26/21 14:19 Dose: 2 drop Documented by: Omeprazole (Omeprazole 20 Mg Capsule.) 20 mg PO BID@0630,1630 [facility] Last Admin: 11/26/21 06:29 Dose: 20 mg Documented by: Polyethylene Glycol (Polyethylene Glycol 3350 17 Gm Powd.Pack) 17 gm PO DAILY PRN PRN Reason: Constipation Last Admin: 11/24/21 09:43 Dose: 17 gm Documented by: Psyllium Hydrophilic Mucilloid (Psyllium Seed 3.4 Gm Powd.Pack) 3.4 gm PO DAILY [facility] Last Admin: 11/26/21 09:02 Dose: 3.4 gm Documented by: Quetiapine Fumarate (Quetiapine Fumarate 100 Mg Tablet) 100 mg PO Q6H PRN PRN Reason: anxiety/restlessness Quetiapine Fumarate (Quetiapine Fumarate 100 Mg Tablet) 500 mg PO BEDTIME [facility] Last Admin: 11/25/21 20:23 Dose: 500 mg Documented by: Ropinirole HCl (Ropinirole Hcl 2 Mg Tablet) 2 mg PO DAILY@1900 [facility] Last Admin: 11/25/21 20:25 Dose: 2 mg Documented by: Senna/Docusate Sodium (Sennosides/Docusate Sodium Tablet) 1 tab PO BID [facility] Last Admin: 11/26/21 09:01 Dose: 1 tab Documented by: Simethicone (Simethicone 80 Mg Tab.Chew) 80 mg PO QIDWMHS PRN PRN Reason: indigestion Last Admin: 11/15/21 14:13 Dose: 80 mg Documented by: Sodium Chloride (Sodium Chloride 0.65 % Nasal 44 Ml Sprbtl) 1 spray NOSTRIL-B Q1H PRN PRN Reason: congestion Last Admin: 11/26/21 14:19 Dose: 1 spray Documented by: Trazodone HCl (Trazodone Hcl 25 Mg Halftab) 75 mg PO BEDTIME PRN PRN Reason: insomnia Last Admin: 11/25/21 20:24 Dose: 75 mg Documented by: Trolamine Salicylate/Aloe Vera (Trolamine Salicylate 10%/Aloe Cream 35.4 Gm) 1 appl TOPICAL QID PRN PRN Reason: leg pain Trolamine Salicylate/Aloe Vera (Trolamine Salicylate 10%/Aloe Cream 35.4 Gm) 1 appl TOPICAL QID PRN PRN Reason: mild-mod pain Last Admin: 11/21/21 16:20 Dose: 1 appl Documented by: Vitamin D (Cholecalciferol (Vitamin D3) 25 Mcg Tablet) 25 mcg PO DAILY [facility] Last Admin: 11/26/21 09:00 Dose: 25 mcg Documented by: Allergies Allergies Allergy/AdvReac Type Severity Reaction Status Date / Time aripiprazole [From Abilify] Allergy Unknown Involuntary Verified 08/19/21 07:20 Spasms chlorpromazine Allergy Unknown Nausea and Verified 08/19/21 07:20 [From Thorazine] Vomiting haloperidol [From Haldol] Allergy Unknown Involuntary Verified 08/19/21 07:20 Spasms olanzapine [From Zyprexa] Allergy Unknown Involuntary Verified 08/19/21 07:20 Spasms paliperidone [From Invega] Allergy Unknown Hallucinati Verified 08/19/21 07:20 ons risperidone Allergy Unknown Involuntary Verified 08/19/21 07:20 Spasms Assessment & Plan Assessment & Plan (1) Schizoaffective disorder, bipolar type: Status: Acute Code(s): F25.0 - Schizoaffective disorder, bipolar type (2) Lumbar radiculopathy: Status: Acute Code(s): M54.16 - Radiculopathy, lumbar region (3) Hip pain, left: Status: Acute Code(s): M25.552 - Pain in left hip Plan 11/05/21: Continue current plan. Support in transition 11/06/2021: Continue current regimen and plans. No changes were made today 11/07/2021: Continue current plans and regimen. No changes were made today 11/08/21: Discontinue a.m. Seroquel 100 mg Increase p.m. Seroquel to 700 mg from 600 mg, consolidating dosages per pt request to improve mgt of daytime sedation. 11/09/21: No changes today Throat culture, COVID-19 testing, throat lozenges prn 11/10/21: R/O CKD sx. Nephrology consultation. Discontinue [place] Lamictal 25 mg hs Encourage fluids Synthroid 12.5 mcg daily 11/11/21: No regime changes today. Continue to monitor 11/12/21: Discontinue atarax, lidocaine Requip, a.m. dose, Lidocaine per pt request Change prn Seroquel to 100 mg po q 6 h prn from 200 mg po q 6h prn Continue to monitor physical symptoms 11/13/21: No medication changes 11/14/21: increase ativan to 1 mg QHS for sleep, anxiety 11/15/21: No medication changes today 11/17/21: Support pt in transition to community. 11/18/21: Continue current plan 11/19/21: Continue current plan 11/20: Increase Cymbalta to 40 mg daily 11/21 start Voltaren 50 mg BID. No change in psychotropics. 11/22/21: Decrease Seroquel by 100 mg daily at HS Increase Lamictal to 50 mg daily CBCD, CMP Support through this process of transition. 11/23/21 Declined labs today. Re-ordered for 11/24. Support through transitional process. 11/24/21 Decrease Seroquel to 500 mg HS Magnesium Citrate x 1 prn constipation Eucerin Cream to feet. 11/25/21 Continue current plan of care Support in transition. 11/26/21 K+ level 11/27 Continue current plan of care Support in transition. I spent minutes with the patient and/or on the patient floor today, greater than?50% of which was spent counseling/coordinating care. Patient educated on: therapeutic strategies Informed Consent: understands Reason for contiued inpatient stay Substantial Risk for: inability to function and rapid decompensation
[2021-11-26] MEDS: Acetaminophen 325 MG TABLET 975 MG PO (16:22)
[2021-11-26 17:17] VITALS: BP 102/57; PULSE 97; RESP 16; TEMP 36.9; O2SAT 97
[2021-11-26] MEDS: QUEtiapine Fumarate 100 MG TABLET 500 MG PO (20:17)
[2021-11-26] MEDS: lamoTRIgine 25 MG TABLET 50 MG PO (20:18)
[2021-11-26] MEDS: rOPINIRole HCL 2 MG TABLET PO (20:18)
[2021-11-26] MEDS: traZODone HCL 25 MG HALFTAB 75 MG PO (20:45)
[2021-11-26] MEDS: LORazepam 1 MG TABLET PO (20:45)
[2021-11-27] MEDS: Levothyroxine Sodium 25 MCG TABLET 12.5 MCG PO (06:04)
[2021-11-27] MEDS: Omeprazole 20 MG CAPSULE.DR PO (06:05)
[2021-11-27 09:30] VITALS: BP 128/88; PULSE 76; TEMP 36.9; O2SAT 98
--- NOTE | 2021-11-27 09:32 | P.PNPSI_ITS ---
Subjective Subjective Date of Service: 11/27/21 Reason For Visit: Bipolar, Schizoaffective Interim History: Patient says that she has okay. She denies any SI or HI or AVH. She is waiting for disposition and says it is frustrating. Patient chatted with rfp writer about a book she is reading and says she is making due. No complaints and no requests. Patient is pleasant and friendly. Mental Status Exam Mental Status Exam Narrative: Patient Appearance:?Appropriate Patient Orientation:?Person, Place, Time and Situation Level of Consciousness:?Alert Patient Behavior:?Talkative, Cooperative and Good Eye Contact Mood Description:? ok Affect Description:?congruent Patient Cognition Impaired:?No Ability to Follow Directions:?Good Speech Pattern:?Spontaneous Speech Memory Description:?Intact Delusions:?Not Present Perceptual Disturbances:?none Thought Process:?goal oriented; can be circumstantial Thought Content dispo Depressive Symptoms:?Increased Anxiety, Unhappiness and Difficulty Concentrating Judgement:?Fair Diagnostics Vital Signs (24Hr): Vital Signs - 24 hr 11/26/21 17:17 Temperature 98.5 F Pulse Rate 97 Respiratory Rate 16 Blood Pressure 102/57 L Pulse Oximetry 97 BMI result Body Mass Index 38.0 Labs Results: 11/24/21 08:08 11/24/21 08:08 Imaging Radiology Impressions: ITS Impressions Abdomen Ultrasound 09/01/21 08:59 IMPRESSION: Slightly echogenic liver. Limited evaluation of the gallbladder as the patient has recently eaten. No gallstone seen. Limited visualization of the pancreas. Hip X-Ray 09/16/21 14:47 IMPRESSION: Moderate to severe left hip arthritis. Medications Medications Current Medications Acetaminophen (Acetaminophen 325 Mg Tablet) 975 mg PO Q6H PRN PRN Reason: Headache/Pain Mild Scale (1-3) Last Admin: 11/26/21 16:22 Dose: 975 mg Documented by: Amlodipine Besylate (Amlodipine Besylate 2.5 Mg Tablet) 2.5 mg PO DAILY [facility]; Protocol Last Admin: 11/26/21 09:00 Dose: 2.5 mg Documented by: Artificial Tears (Artificial Tears 15 Ml Drops) 2 drop EYE-BOTH Q4H PRN PRN Reason: Dry Eyes Last Admin: 11/19/21 08:54 Dose: 2 drop Documented by: Artificial Tears (Artificial Tears 15 Ml Drops) 2 drop EYE-BOTH Q4H PRN PRN Reason: dry eyes Benzocaine (Benzocaine 20 % Oral Gel 9 Gm Tube) 1 appl MUCOUS MEM QID PRN; Protocol PRN Reason: Mouth Sore Pain Last Admin: 08/31/21 03:05 Dose: 1 appl Documented by: Benzocaine (Throat Lozenge, Medicated Lozenge) 1 lozenge MUCOUS MEM Q2H PRN PRN Reason: Sore Throat Calcium Carbonate (Calcium Carbonate 500 Mg Tablet) 500 mg PO DAILY [facility] Last Admin: 11/26/21 09:01 Dose: 500 mg Documented by: Calcium Carbonate (Calcium Carbonate 750 Mg Tab.Chew) 750 mg PO Q4H PRN PRN Reason: Heartburn Last Admin: 11/06/21 20:15 Dose: 750 mg Documented by: Capsaicin (Capsaicin 0.025% Cream 60 Gm Tube) 1 appl TOPICAL QID PRN; Protocol PRN Reason: leg pain Last Admin: 11/24/21 09:34 Dose: 1 appl Documented by: Clotrimazole (Clotrimazole 1 % Cream 15 Gm Tube) 1 appl TOPICAL BID [facility]; Protocol Last Admin: 11/26/21 21:41 Dose: Not Given Documented by: [place] Butter/Zinc Oxide ([place] Butter/Zinc Oxide Supp.Rect) 1 supp [place] BEDTIME PRN PRN Reason: hemorrhoid pain Last Admin: 09/13/21 21:15 Dose: 1 supp Documented by: Cyanocobalamin (Cyanocobalamin (Vitamin B-12) 100 Mcg Tablet) 100 mcg PO DAILY [facility] Last Admin: 11/26/21 09:01 Dose: 100 mcg Documented by: Diclofenac Sodium (Diclofenac Sodium Delayed Rel 50 Mg Tablet.) 50 mg PO BID [facility] Last Admin: 11/26/21 20:17 Dose: 50 mg Documented by: Diphenhydramine HCl (Diphenhydramine Hcl 25 Mg Tablet) 50 mg PO Q6H PRN PRN Reason: eps Last Admin: 09/22/21 23:48 Dose: 50 mg Documented by: Docusate Sodium (Docusate Sodium 100 Mg Capsule) 100 mg PO BID [facility] Last Admin: 11/26/21 20:18 Dose: 100 mg Documented by: Duloxetine HCl (Duloxetine Hcl 20 Mg Capsule.) 40 mg PO DAILY [facility] Last Admin: 11/26/21 09:00 Dose: 40 mg Documented by: Gabapentin (Gabapentin 400 Mg Capsule) 800 mg PO TID [facility] Last Admin: 11/26/21 20:18 Dose: 800 mg Documented by: Gabapentin (Gabapentin 100 Mg Capsule) 100 mg PO TID PRN PRN Reason: neuropathic pain Last Admin: 09/26/21 17:14 Dose: 100 mg Documented by: Lamotrigine (Lamotrigine 25 Mg Tablet) 50 mg PO BEDTIME [facility] Last Admin: 11/26/21 20:18 Dose: 50 mg Documented by: Levothyroxine Sodium (Levothyroxine Sodium 25 Mcg Tablet) 12.5 mcg PO DAILY@0600 [facility] Last Admin: 11/27/21 06:04 Dose: 12.5 mcg Documented by: Lorazepam (Lorazepam 1 Mg Tablet) 1 mg PO DAILY PRN PRN Reason: anxiety Last Admin: 11/26/21 20:45 Dose: 1 mg Documented by: Multi-Ingred Cream/Lotion/Oil/Oint (Mineral Oil/Petrolatum,White 106 Gm Tube) 1 appl TOPICAL BID [facility]; Protocol Last Admin: 11/26/21 20:49 Dose: 1 appl Documented by: Nicotine (Nicotine 14 Mg Patch.Td24) 14 mg TRANSDERMA DAILY [facility] Last Admin: 11/26/21 09:13 Dose: Not Given Documented by: Nicotine Polacrilex (Nicotine Polacrilex 2 Mg Gum) 4 mg BUCCAL Q1H PRN PRN Reason: Nicotine Cravings Last Admin: 11/26/21 20:45 Dose: 4 mg Documented by: Nf Medication ( Similasan Complete Eye Relief 2 Drop) 2 drop EYE-BOTH BID PRN PRN Reason: eye dryness Last Admin: 11/26/21 20:49 Dose: 2 drop Documented by: Omeprazole (Omeprazole 20 Mg Capsule.Dr) 20 mg PO BID@0630,1630 [facility] Last Admin: 11/27/21 06:05 Dose: 20 mg Documented by: Polyethylene Glycol (Polyethylene Glycol 3350 17 Gm Powd.Pack) 17 gm PO DAILY PRN PRN Reason: Constipation Last Admin: 11/24/21 09:43 Dose: 17 gm Documented by: Psyllium Hydrophilic Mucilloid (Psyllium Seed 3.4 Gm Powd.Pack) 3.4 gm PO DAILY [facility] Last Admin: 11/26/21 09:02 Dose: 3.4 gm Documented by: Quetiapine Fumarate (Quetiapine Fumarate 100 Mg Tablet) 100 mg PO Q6H PRN PRN Reason: anxiety/restlessness Quetiapine Fumarate (Quetiapine Fumarate 100 Mg Tablet) 500 mg PO BEDTIME [facility] Last Admin: 11/26/21 20:17 Dose: 500 mg Documented by: Ropinirole HCl (Ropinirole Hcl 2 Mg Tablet) 2 mg PO DAILY@1900 [facility] Last Admin: 11/26/21 20:18 Dose: 2 mg Documented by: Senna/Docusate Sodium (Sennosides/Docusate Sodium Tablet) 1 tab PO BID [facility] Last Admin: 11/26/21 20:18 Dose: 1 tab Documented by: Simethicone (Simethicone 80 Mg Tab.Chew) 80 mg PO QIDWMHS PRN PRN Reason: indigestion Last Admin: 11/15/21 14:13 Dose: 80 mg Documented by: Sodium Chloride (Sodium Chloride 0.65 % Nasal 44 Ml Sprbtl) 1 spray NOSTRIL-B Q1H PRN PRN Reason: congestion Last Admin: 11/26/21 16:20 Dose: 1 spray Documented by: Trazodone HCl (Trazodone Hcl 25 Mg Halftab) 75 mg PO BEDTIME PRN PRN Reason: insomnia Last Admin: 11/26/21 20:45 Dose: 75 mg Documented by: Trolamine Salicylate/Aloe Vera (Trolamine Salicylate 10%/Aloe Cream 35.4 Gm) 1 appl TOPICAL QID PRN PRN Reason: leg pain Trolamine Salicylate/Aloe Vera (Trolamine Salicylate 10%/Aloe Cream 35.4 Gm) 1 appl TOPICAL QID PRN PRN Reason: mild-mod pain Last Admin: 11/21/21 16:20 Dose: 1 appl Documented by: Vitamin D (Cholecalciferol (Vitamin D3) 25 Mcg Tablet) 25 mcg PO DAILY [facility] Last Admin: 11/26/21 09:00 Dose: 25 mcg Documented by: Allergies Allergies Allergy/AdvReac Type Severity Reaction Status Date / Time aripiprazole [From Abilify] Allergy Unknown Involuntary Verified 08/19/21 07:20 Spasms chlorpromazine Allergy Unknown Nausea and Verified 08/19/21 07:20 [From Thorazine] Vomiting haloperidol [From Haldol] Allergy Unknown Involuntary Verified 08/19/21 07:20 Spasms olanzapine [From Zyprexa] Allergy Unknown Involuntary Verified 08/19/21 07:20 Spasms paliperidone [From Invega] Allergy Unknown Hallucinati Verified 08/19/21 07:20 ons risperidone Allergy Unknown Involuntary Verified 08/19/21 07:20 Spasms Assessment & Plan Assessment & Plan (1) Schizoaffective disorder, bipolar type: Status: Acute Code(s): F25.0 - Schizoaffective disorder, bipolar type (2) Lumbar radiculopathy: Status: Acute Code(s): M54.16 - Radiculopathy, lumbar region (3) Hip pain, left: Status: Acute Code(s): M25.552 - Pain in left hip Plan 11/05/21: Continue current plan. Support in transition 11/06/2021: Continue current regimen and plans. No changes were made today 11/07/2021: Continue current plans and regimen. No changes were made today 11/08/21: Discontinue a.m. Seroquel 100 mg Increase p.m. Seroquel to 700 mg from 600 mg, consolidating dosages per pt request to improve mgt of daytime sedation. 11/09/21: No changes today Throat culture, COVID-19 testing, throat lozenges prn 11/10/21: R/O CKD sx. Nephrology consultation. Discontinue [place] Lamictal 25 mg hs Encourage fluids Synthroid 12.5 mcg daily 11/11/21: No regime changes today. Continue to monitor 11/12/21: Discontinue atarax, lidocaine Requip, a.m. dose, Lidocaine per pt request Change prn Seroquel to 100 mg po q 6 h prn from 200 mg po q 6h prn Continue to monitor physical symptoms 11/13/21: No medication changes 11/14/21: increase ativan to 1 mg QHS for sleep, anxiety 11/15/21: No medication changes today 11/17/21: Support pt in transition to community. 11/18/21: Continue current plan 11/19/21: Continue current plan 11/20: Increase Cymbalta to 40 mg daily 11/21 start Voltaren 50 mg BID. No change in psychotropics. 11/22/21: Decrease Seroquel by 100 mg daily at HS Increase Lamictal to 50 mg daily CBCD, CMP Support through this process of transition. 11/23/21 Declined labs today. Re-ordered for 11/24. Support through transitional process. 11/24/21 Decrease Seroquel to 500 mg HS Magnesium Citrate x 1 prn constipation Eucerin Cream to feet. 11/25/21 Continue current plan of care Support in transition. 11/26/21 K+ level 11/27 Continue current plan of care Support in transition. 11/27 no changes to current plan I spent minutes with the patient and/or on the patient floor today, greater than?50% of which was spent counseling/coordinating care. Patient educated on: diagnosis Informed Consent: understands Reason for contiued inpatient stay Substantial Risk for: other
[2021-11-27] MEDS: Mineral Oil/Petrolatum,White 106 GM Tube 1 APPL TOPICAL (09:58)
[2021-11-27] MEDS: Sodium Chloride 0.65 % Nasal 44 ML SPRBTL 1 SPRAY NOSTRIL-B (09:59)
[2021-11-27] MEDS: Capsaicin 0.025% Cream 60 GM TUBE 1 APPL TOPICAL (09:59)
[2021-11-27] MEDS: polyethylene glycoL 3350 17 GM POWD.PACK PO (10:02)
[2021-11-27] MEDS: Diclofenac Sodium Delayed Rel 50 MG TABLET.DR PO ×2 (10:02→20:02)
[2021-11-27] MEDS: amLODIPine Besylate 2.5 MG TABLET PO (10:02)
[2021-11-27] MEDS: Gabapentin 400 MG CAPSULE 800 MG PO ×3 (10:03→20:01)
[2021-11-27] MEDS: DULoxetine HCl 20 MG CAPSULE.DR 40 MG PO (10:03)
[2021-11-27] MEDS: Cholecalciferol (Vitamin D3) 25 MCG TABLET PO (10:03)
[2021-11-27] MEDS: Nicotine Polacrilex 2 MG GUM 4 MG BUCCAL ×4 (10:03→20:02)
[2021-11-27] MEDS: Docusate Sodium 100 MG CAPSULE PO ×2 (10:03→20:01)
[2021-11-27] MEDS: Cyanocobalamin (Vitamin B-12) 100 MCG TABLET PO (10:03)
[2021-11-27] MEDS: Sennosides/Docusate Sodium TABLET 1 TAB PO ×2 (10:09→20:02)
[2021-11-27] MEDS: LORazepam 1 MG TABLET PO (15:11)
[2021-11-27 18:00] VITALS: BP 102/52; PULSE 71; RESP 16; TEMP 36.3
[2021-11-27] MEDS: rOPINIRole HCL 2 MG TABLET PO (18:49)
[2021-11-27] MEDS: QUEtiapine Fumarate 100 MG TABLET 500 MG PO (20:01)
[2021-11-27] MEDS: traZODone HCL 25 MG HALFTAB 75 MG PO (20:02)
[2021-11-27] MEDS: lamoTRIgine 25 MG TABLET 50 MG PO (20:02)
[2021-11-28] MEDS: Levothyroxine Sodium 25 MCG TABLET 12.5 MCG PO (07:36)
[2021-11-28] MEDS: Omeprazole 20 MG CAPSULE.DR PO (07:37)
[2021-11-28] MEDS: Mineral Oil/Petrolatum,White 106 GM Tube 1 APPL TOPICAL (09:05)
[2021-11-28] MEDS: Sodium Chloride 0.65 % Nasal 44 ML SPRBTL 1 SPRAY NOSTRIL-B ×2 (09:05→18:57)
[2021-11-28] MEDS: Capsaicin 0.025% Cream 60 GM TUBE 1 APPL TOPICAL (09:05)
[2021-11-28] MEDS: Diclofenac Sodium Delayed Rel 50 MG TABLET.DR PO ×2 (09:06→21:42)
[2021-11-28] MEDS: Docusate Sodium 100 MG CAPSULE PO ×2 (09:06→21:42)
[2021-11-28] MEDS: Cholecalciferol (Vitamin D3) 25 MCG TABLET PO (09:06)
[2021-11-28] MEDS: polyethylene glycoL 3350 17 GM POWD.PACK PO (09:06)
[2021-11-28] MEDS: Sennosides/Docusate Sodium TABLET 1 TAB PO ×2 (09:06→21:45)
[2021-11-28] MEDS: Gabapentin 400 MG CAPSULE 800 MG PO ×3 (09:06→21:46)
[2021-11-28] MEDS: DULoxetine HCl 20 MG CAPSULE.DR 40 MG PO (09:06)
[2021-11-28] MEDS: Cyanocobalamin (Vitamin B-12) 100 MCG TABLET PO (09:07)
[2021-11-28] MEDS: amLODIPine Besylate 2.5 MG TABLET PO (09:07)
[2021-11-28] MEDS: Nicotine Polacrilex 2 MG GUM 4 MG BUCCAL ×4 (09:08→21:49)
[2021-11-28 09:15] VITALS: BP 129/94; PULSE 96; TEMP 36.7; O2SAT 96
--- NOTE | 2021-11-28 13:01 | HO.PSYCHPN ---
Subjective Subjective Date of Service: 11/28/21 Reason For Visit: Bipolar, Schizoaffective Interim History: Patient reports that she is doing fine; no complaints and no requests; patient shared with staff that she was bothered to know there had been an accusation against her regarding harming animals while she was manic. Patient going to groups. Appropriate with peers and staff Mental Status Exam Mental Status Exam Narrative: Patient Appearance:?Appropriate Patient Orientation:?Person, Place, Time and Situation Level of Consciousness:?Alert Patient Behavior:?Talkative, Cooperative and Good Eye Contact Mood Description:?fine Affect Description:?congruent Patient Cognition Impaired:?No Ability to Follow Directions:?Good Speech Pattern:?Spontaneous Speech Memory Description:?Intact Delusions:?Not Present Perceptual Disturbances:?none Thought Process:?goal oriented; can be circumstantial Thought Content dispo Judgement:?Fair Diagnostics Vital Signs (24Hr): Vital Signs - 24 hr 11/27/21 18:00 11/28/21 09:15 Temperature 97.3 F 98.0 F Pulse Rate 71 96 Respiratory Rate 16 Blood Pressure 102/52 L 129/94 H Pulse Oximetry 96 BMI result Body Mass Index 38.0 Labs Results: 11/24/21 08:08 11/24/21 08:08 Imaging Radiology Impressions: ITS Impressions Abdomen Ultrasound 09/01/21 08:59 IMPRESSION: Slightly echogenic liver. Limited evaluation of the gallbladder as the patient has recently eaten. No gallstone seen. Limited visualization of the pancreas. Hip X-Ray 09/16/21 14:47 IMPRESSION: Moderate to severe left hip arthritis. Medications Medications Current Medications Acetaminophen (Acetaminophen 325 Mg Tablet) 975 mg PO Q6H PRN PRN Reason: Headache/Pain Mild Scale (1-3) Last Admin: 11/26/21 16:22 Dose: 975 mg Documented by: Amlodipine Besylate (Amlodipine Besylate 2.5 Mg Tablet) 2.5 mg PO DAILY [facility]; Protocol Last Admin: 11/28/21 09:07 Dose: 2.5 mg Documented by: Artificial Tears (Artificial Tears 15 Ml Drops) 2 drop EYE-BOTH Q4H PRN PRN Reason: Dry Eyes Last Admin: 11/19/21 08:54 Dose: 2 drop Documented by: Artificial Tears (Artificial Tears 15 Ml Drops) 2 drop EYE-BOTH Q4H PRN PRN Reason: dry eyes Benzocaine (Benzocaine 20 % Oral Gel 9 Gm Tube) 1 appl MUCOUS MEM QID PRN; Protocol PRN Reason: Mouth Sore Pain Last Admin: 08/31/21 03:05 Dose: 1 appl Documented by: Benzocaine (Throat Lozenge, Medicated Lozenge) 1 lozenge MUCOUS MEM Q2H PRN PRN Reason: Sore Throat Calcium Carbonate (Calcium Carbonate 500 Mg Tablet) 500 mg PO DAILY [facility] Last Admin: 11/28/21 09:06 Dose: 500 mg Documented by: Calcium Carbonate (Calcium Carbonate 750 Mg Tab.Chew) 750 mg PO Q4H PRN PRN Reason: Heartburn Last Admin: 11/06/21 20:15 Dose: 750 mg Documented by: Capsaicin (Capsaicin 0.025% Cream 60 Gm Tube) 1 appl TOPICAL QID PRN; Protocol PRN Reason: leg pain Last Admin: 11/28/21 09:05 Dose: 1 appl Documented by: Clotrimazole (Clotrimazole 1 % Cream 15 Gm Tube) 1 appl TOPICAL BID [facility]; Protocol Last Admin: 11/28/21 09:07 Dose: Not Given Documented by: [place] Butter/Zinc Oxide ([place] Butter/Zinc Oxide Supp.Rect) 1 supp [place] BEDTIME PRN PRN Reason: hemorrhoid pain Last Admin: 09/13/21 21:15 Dose: 1 supp Documented by: Cyanocobalamin (Cyanocobalamin (Vitamin B-12) 100 Mcg Tablet) 100 mcg PO DAILY [facility] Last Admin: 11/28/21 09:07 Dose: 100 mcg Documented by: Diclofenac Sodium (Diclofenac Sodium Delayed Rel 50 Mg Tablet.) 50 mg PO BID [facility] Last Admin: 11/28/21 09:06 Dose: 50 mg Documented by: Diphenhydramine HCl (Diphenhydramine Hcl 25 Mg Tablet) 50 mg PO Q6H PRN PRN Reason: eps Last Admin: 09/22/21 23:48 Dose: 50 mg Documented by: Docusate Sodium (Docusate Sodium 100 Mg Capsule) 100 mg PO BID [facility] Last Admin: 11/28/21 09:06 Dose: 100 mg Documented by: Duloxetine HCl (Duloxetine Hcl 20 Mg Capsule.) 40 mg PO DAILY [facility] Last Admin: 11/28/21 09:06 Dose: 40 mg Documented by: Gabapentin (Gabapentin 400 Mg Capsule) 800 mg PO TID [facility] Last Admin: 11/28/21 09:06 Dose: 800 mg Documented by: Gabapentin (Gabapentin 100 Mg Capsule) 100 mg PO TID PRN PRN Reason: neuropathic pain Last Admin: 09/26/21 17:14 Dose: 100 mg Documented by: Lamotrigine (Lamotrigine 25 Mg Tablet) 50 mg PO BEDTIME [facility] Last Admin: 11/27/21 20:02 Dose: 50 mg Documented by: Levothyroxine Sodium (Levothyroxine Sodium 25 Mcg Tablet) 12.5 mcg PO DAILY@0600 [facility] Last Admin: 11/28/21 07:36 Dose: 12.5 mcg Documented by: Lorazepam (Lorazepam 1 Mg Tablet) 1 mg PO DAILY PRN PRN Reason: anxiety Last Admin: 11/27/21 15:11 Dose: 1 mg Documented by: Multi-Ingred Cream/Lotion/Oil/Oint (Mineral Oil/Petrolatum,White 106 Gm Tube) 1 appl TOPICAL BID [facility]; Protocol Last Admin: 11/28/21 09:05 Dose: 1 appl Documented by: Nicotine (Nicotine 14 Mg Patch.Td24) 14 mg TRANSDERMA DAILY [facility] Last Admin: 11/28/21 09:08 Dose: Not Given Documented by: Nicotine Polacrilex (Nicotine Polacrilex 2 Mg Gum) 4 mg BUCCAL Q1H PRN PRN Reason: Nicotine Cravings Last Admin: 11/28/21 09:08 Dose: 4 mg Documented by: Nf Medication ( Similasan Complete Eye Relief 2 Drop) 2 drop EYE-BOTH BID PRN PRN Reason: eye dryness Last Admin: 11/27/21 09:59 Dose: 2 drop Documented by: Omeprazole (Omeprazole 20 Mg Capsule.) 20 mg PO BID@0630,1630 [facility] Last Admin: 11/28/21 07:37 Dose: 20 mg Documented by: Polyethylene Glycol (Polyethylene Glycol 3350 17 Gm Powd.Pack) 17 gm PO DAILY PRN PRN Reason: Constipation Last Admin: 11/28/21 09:06 Dose: 17 gm Documented by: Psyllium Hydrophilic Mucilloid (Psyllium Seed 3.4 Gm Powd.Pack) 3.4 gm PO DAILY [facility] Last Admin: 11/28/21 09:06 Dose: 3.4 gm Documented by: Quetiapine Fumarate (Quetiapine Fumarate 100 Mg Tablet) 100 mg PO Q6H PRN PRN Reason: anxiety/restlessness Quetiapine Fumarate (Quetiapine Fumarate 100 Mg Tablet) 500 mg PO BEDTIME [facility] Last Admin: 11/27/21 20:01 Dose: 500 mg Documented by: Ropinirole HCl (Ropinirole Hcl 2 Mg Tablet) 2 mg PO DAILY@1900 [facility] Last Admin: 11/27/21 18:49 Dose: 2 mg Documented by: Senna/Docusate Sodium (Sennosides/Docusate Sodium Tablet) 1 tab PO BID [facility] Last Admin: 11/28/21 09:06 Dose: 1 tab Documented by: Simethicone (Simethicone 80 Mg Tab.Chew) 80 mg PO QIDWMHS PRN PRN Reason: indigestion Last Admin: 11/15/21 14:13 Dose: 80 mg Documented by: Sodium Chloride (Sodium Chloride 0.65 % Nasal 44 Ml Sprbtl) 1 spray NOSTRIL-B Q1H PRN PRN Reason: congestion Last Admin: 11/28/21 09:05 Dose: 1 spray Documented by: Trazodone HCl (Trazodone Hcl 25 Mg Halftab) 75 mg PO BEDTIME PRN PRN Reason: insomnia Last Admin: 11/27/21 20:02 Dose: 75 mg Documented by: Trolamine Salicylate/Aloe Vera (Trolamine Salicylate 10%/Aloe Cream 35.4 Gm) 1 appl TOPICAL QID PRN PRN Reason: leg pain Trolamine Salicylate/Aloe Vera (Trolamine Salicylate 10%/Aloe Cream 35.4 Gm) 1 appl TOPICAL QID PRN PRN Reason: mild-mod pain Last Admin: 11/21/21 16:20 Dose: 1 appl Documented by: Vitamin D (Cholecalciferol (Vitamin D3) 25 Mcg Tablet) 25 mcg PO DAILY [facility] Last Admin: 11/28/21 09:06 Dose: 25 mcg Documented by: Allergies Allergies Allergy/AdvReac Type Severity Reaction Status Date / Time aripiprazole [From Abilify] Allergy Unknown Involuntary Verified 08/19/21 07:20 Spasms chlorpromazine Allergy Unknown Nausea and Verified 08/19/21 07:20 [From Thorazine] Vomiting haloperidol [From Haldol] Allergy Unknown Involuntary Verified 08/19/21 07:20 Spasms olanzapine [From Zyprexa] Allergy Unknown Involuntary Verified 08/19/21 07:20 Spasms paliperidone [From Invega] Allergy Unknown Hallucinati Verified 08/19/21 07:20 ons risperidone Allergy Unknown Involuntary Verified 08/19/21 07:20 Spasms Assessment & Plan Assessment & Plan (1) Schizoaffective disorder, bipolar type: Status: Acute Code(s): F25.0 - Schizoaffective disorder, bipolar type (2) Lumbar radiculopathy: Status: Acute Code(s): M54.16 - Radiculopathy, lumbar region (3) Hip pain, left: Status: Acute Code(s): M25.552 - Pain in left hip Plan 11/05/21: Continue current plan. Support in transition 11/06/2021: Continue current regimen and plans. No changes were made today 11/07/2021: Continue current plans and regimen. No changes were made today 11/08/21: Discontinue a.m. Seroquel 100 mg Increase p.m. Seroquel to 700 mg from 600 mg, consolidating dosages per pt request to improve mgt of daytime sedation. 11/09/21: No changes today Throat culture, COVID-19 testing, throat lozenges prn 11/10/21: R/O CKD sx. Nephrology consultation. Discontinue [place] Lamictal 25 mg hs Encourage fluids Synthroid 12.5 mcg daily 11/11/21: No regime changes today. Continue to monitor 11/12/21: Discontinue atarax, lidocaine Requip, a.m. dose, Lidocaine per pt request Change prn Seroquel to 100 mg po q 6 h prn from 200 mg po q 6h prn Continue to monitor physical symptoms 11/13/21: No medication changes 11/14/21: increase ativan to 1 mg QHS for sleep, anxiety 11/15/21: No medication changes today 11/17/21: Support pt in transition to community. 11/18/21: Continue current plan 11/19/21: Continue current plan 11/20: Increase Cymbalta to 40 mg daily 11/21 start Voltaren 50 mg BID. No change in psychotropics. 11/22/21: Decrease Seroquel by 100 mg daily at HS Increase Lamictal to 50 mg daily CBCD, CMP Support through this process of transition. 11/23/21 Declined labs today. Re-ordered for 11/24. Support through transitional process. 11/24/21 Decrease Seroquel to 500 mg HS Magnesium Citrate x 1 prn constipation Eucerin Cream to feet. 11/25/21 Continue current plan of care Support in transition. 11/26/21 K+ level 11/27 Continue current plan of care Support in transition. 11/27 no changes to current plan 11/28 no changes to current plan I spent minutes with the patient and/or on the patient floor today, greater than?50% of which was spent counseling/coordinating care. Reason for contiued inpatient stay Substantial Risk for: other
[2021-11-28 18:00] VITALS: BP 106/75; PULSE 76; TEMP 36.4; O2SAT 96
[2021-11-28] MEDS: rOPINIRole HCL 2 MG TABLET PO (18:53)
[2021-11-28] MEDS: traZODone HCL 25 MG HALFTAB 75 MG PO (21:42)
[2021-11-28] MEDS: QUEtiapine Fumarate 100 MG TABLET 500 MG PO (21:44)
[2021-11-28] MEDS: lamoTRIgine 25 MG TABLET 50 MG PO (21:44)
[2021-11-28] MEDS: LORazepam 1 MG TABLET PO (21:46)
[2021-11-29] MEDS: Levothyroxine Sodium 25 MCG TABLET 12.5 MCG PO (06:04)
[2021-11-29 09:00] VITALS: BP 115/67; PULSE 79; TEMP 36.6; O2SAT 96
[2021-11-29] MEDS: Omeprazole 20 MG CAPSULE.DR PO (09:00)
[2021-11-29] MEDS: Capsaicin 0.025% Cream 60 GM TUBE 1 APPL TOPICAL (09:08)
[2021-11-29] MEDS: polyethylene glycoL 3350 17 GM POWD.PACK PO (09:10)
[2021-11-29] MEDS: Sennosides/Docusate Sodium TABLET 1 TAB PO ×2 (09:13→20:31)
[2021-11-29] MEDS: amLODIPine Besylate 2.5 MG TABLET PO (09:13)
[2021-11-29] MEDS: DULoxetine HCl 20 MG CAPSULE.DR 40 MG PO (09:13)
[2021-11-29] MEDS: Gabapentin 400 MG CAPSULE 800 MG PO ×3 (09:13→20:31)
[2021-11-29] MEDS: Cholecalciferol (Vitamin D3) 25 MCG TABLET PO (09:13)
[2021-11-29] MEDS: Mineral Oil/Petrolatum,White 106 GM Tube 1 APPL TOPICAL (09:14)
[2021-11-29] MEDS: Cyanocobalamin (Vitamin B-12) 100 MCG TABLET PO (09:14)
[2021-11-29] MEDS: Docusate Sodium 100 MG CAPSULE PO ×2 (09:14→20:31)
[2021-11-29] MEDS: Diclofenac Sodium Delayed Rel 50 MG TABLET.DR PO ×2 (09:14→20:31)
[2021-11-29] MEDS: Nicotine Polacrilex 2 MG GUM 4 MG BUCCAL ×4 (09:17→20:32)
[2021-11-29] MEDS: Magnesium Citrate 300 ML SOLUTION PO (12:05)
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
[2021-11-29] MEDS: LORazepam 1 MG TABLET PO (18:59)
[2021-11-29] MEDS: rOPINIRole HCL 2 MG TABLET PO (19:00)
[2021-11-29 20:15] VITALS: BP 129/78; PULSE 94; TEMP 37.1; O2SAT 99
[2021-11-29] MEDS: QUEtiapine Fumarate 100 MG TABLET 500 MG PO (20:30)
[2021-11-29] MEDS: lamoTRIgine 25 MG TABLET 50 MG PO (20:31)
[2021-11-30] MEDS: Levothyroxine Sodium 25 MCG TABLET 12.5 MCG PO (05:49)
[2021-11-30 06:00] VITALS: BP 126/67; PULSE 83; RESP 16; TEMP 36.3; O2SAT 97
[2021-11-30] MEDS: Diclofenac Sodium Delayed Rel 50 MG TABLET.DR PO ×2 (09:12→20:05)
[2021-11-30] MEDS: DULoxetine HCl 20 MG CAPSULE.DR 40 MG PO (09:14)
[2021-11-30] MEDS: amLODIPine Besylate 2.5 MG TABLET PO (09:14)
[2021-11-30] MEDS: Cyanocobalamin (Vitamin B-12) 100 MCG TABLET PO (09:14)
[2021-11-30] MEDS: Cholecalciferol (Vitamin D3) 25 MCG TABLET PO (09:14)
[2021-11-30] MEDS: Gabapentin 400 MG CAPSULE 800 MG PO ×3 (09:14→20:06)
[2021-11-30] MEDS: Sennosides/Docusate Sodium TABLET 1 TAB PO ×2 (09:15→20:06)
[2021-11-30] MEDS: Docusate Sodium 100 MG CAPSULE PO ×2 (09:15→20:31)
[2021-11-30] MEDS: polyethylene glycoL 3350 17 GM POWD.PACK PO (09:15)
[2021-11-30] MEDS: Nicotine Polacrilex 2 MG GUM 4 MG BUCCAL ×5 (09:15→20:31)
[2021-11-30] MEDS: Sodium Chloride 0.65 % Nasal 44 ML SPRBTL 1 SPRAY NOSTRIL-B (09:46)
--- NOTE | 2021-11-30 14:48 | HO.PSYCHPN ---
Subjective Subjective Date of Service: 11/30/21 Reason For Visit: Bipolar, Schizoaffective Subjective Notes: Conditional Voluntary Healthcare Proxy: No Guardianship: No Medical Problems Affecting Mental Status: No Interim History: Blanca reports she is well. She is apprehensive regarding placement and has been for a while, however, she reports this is becoming the norm. We learned that her PACT team, [facility], closed her case on 11/17/21 however they remain her rep payee. They will not offer to assist in her transition to local services which is a barrier to her discharge. Reports regime of medications is tolerated, helpful and a.m. sedation reported last week has decreased. Medication Compliance: Yes Side effects from medications: No Attending Groups: Intermittent Review of Systems Acute medical concerns: No Medical Review of Systems: unchanged Review of Systems Psychiatric: Reports no additional psychiatric complaints Mental Status Exam Mental Status Exam Patient Appearance: Appropriate Patient Orientation: Person, Place, Time and Situation Level of Consciousness: Alert Patient Behavior: Talkative and Good Eye Contact Mood Description: Anxious and Apprehensive Affect Description: Anxious, Flat and Apprehensive Patient Cognition Impaired: No Ability to Follow Directions: Good Speech Pattern: Spontaneous Speech Hallucinations: Auditory (baseline) Delusions: Not Present Perceptual Disturbances: Depersonalization and Derealization Thought Process: Goal Oriented Thought Content: positive for [place] and positive for Circumstantial Depressive Symptoms: Increased Anxiety, Increased Fatigue and Loss of Energy Judgement: Good Diagnostics Vital Signs (24Hr): Vital Signs - 24 hr 11/29/21 20:15 11/30/21 06:00 Temperature 98.8 F 97.4 F Pulse Rate 94 83 Respiratory Rate 16 Blood Pressure 129/78 126/67 Pulse Oximetry 99 97 BMI result Body Mass Index 38.0 Labs Results: 11/24/21 08:08 11/24/21 08:08 Imaging Radiology Impressions: ITS Impressions Abdomen Ultrasound 09/01/21 08:59 IMPRESSION: Slightly echogenic liver. Limited evaluation of the gallbladder as the patient has recently eaten. No gallstone seen. Limited visualization of the pancreas. Hip X-Ray 09/16/21 14:47 IMPRESSION: Moderate to severe left hip arthritis. Medications Medications Current Medications Acetaminophen (Acetaminophen 325 Mg Tablet) 975 mg PO Q6H PRN PRN Reason: Headache/Pain Mild Scale (1-3) Last Admin: 11/26/21 16:22 Dose: 975 mg Documented by: Amlodipine Besylate (Amlodipine Besylate 2.5 Mg Tablet) 2.5 mg PO DAILY [facility]; Protocol Last Admin: 11/30/21 09:14 Dose: 2.5 mg Documented by: Artificial Tears (Artificial Tears 15 Ml Drops) 2 drop EYE-BOTH Q4H PRN PRN Reason: Dry Eyes Last Admin: 11/19/21 08:54 Dose: 2 drop Documented by: Artificial Tears (Artificial Tears 15 Ml Drops) 2 drop EYE-BOTH Q4H PRN PRN Reason: dry eyes Benzocaine (Benzocaine 20 % Oral Gel 9 Gm Tube) 1 appl MUCOUS MEM QID PRN; Protocol PRN Reason: Mouth Sore Pain Last Admin: 08/31/21 03:05 Dose: 1 appl Documented by: Benzocaine (Throat Lozenge, Medicated Lozenge) 1 lozenge MUCOUS MEM Q2H PRN PRN Reason: Sore Throat Calcium Carbonate (Calcium Carbonate 500 Mg Tablet) 500 mg PO DAILY [facility] Last Admin: 11/30/21 09:14 Dose: 500 mg Documented by: Calcium Carbonate (Calcium Carbonate 750 Mg Tab.Chew) 750 mg PO Q4H PRN PRN Reason: Heartburn Last Admin: 11/06/21 20:15 Dose: 750 mg Documented by: Capsaicin (Capsaicin 0.025% Cream 60 Gm Tube) 1 appl TOPICAL QID PRN; Protocol PRN Reason: leg pain Last Admin: 11/29/21 09:08 Dose: 1 appl Documented by: Clotrimazole (Clotrimazole 1 % Cream 15 Gm Tube) 1 appl TOPICAL BID [facility]; Protocol Last Admin: 11/30/21 09:15 Dose: Not Given Documented by: [place] Butter/Zinc Oxide ([place] Butter/Zinc Oxide Supp.Rect) 1 supp [place] BEDTIME PRN PRN Reason: hemorrhoid pain Last Admin: 09/13/21 21:15 Dose: 1 supp Documented by: Cyanocobalamin (Cyanocobalamin (Vitamin B-12) 100 Mcg Tablet) 100 mcg PO DAILY [facility] Last Admin: 11/30/21 09:14 Dose: 100 mcg Documented by: Diclofenac Sodium (Diclofenac Sodium Delayed Rel 50 Mg Tablet.) 50 mg PO BID [facility] Last Admin: 11/30/21 09:12 Dose: 50 mg Documented by: Docusate Sodium (Docusate Sodium 100 Mg Capsule) 100 mg PO BID [facility] Last Admin: 11/30/21 09:15 Dose: 100 mg Documented by: Duloxetine HCl (Duloxetine Hcl 20 Mg Capsule.Dr) 40 mg PO DAILY [facility] Last Admin: 11/30/21 09:14 Dose: 40 mg Documented by: Gabapentin (Gabapentin 400 Mg Capsule) 800 mg PO TID [facility] Last Admin: 11/30/21 14:31 Dose: 800 mg Documented by: Gabapentin (Gabapentin 100 Mg Capsule) 100 mg PO TID PRN PRN Reason: neuropathic pain Last Admin: 09/26/21 17:14 Dose: 100 mg Documented by: Lamotrigine (Lamotrigine 25 Mg Tablet) 50 mg PO BEDTIME [facility] Last Admin: 11/29/21 20:31 Dose: 50 mg Documented by: Levothyroxine Sodium (Levothyroxine Sodium 25 Mcg Tablet) 12.5 mcg PO DAILY@0600 [facility] Last Admin: 11/30/21 05:49 Dose: 12.5 mcg Documented by: Lorazepam (Lorazepam 1 Mg Tablet) 1 mg PO DAILY PRN PRN Reason: anxiety Last Admin: 11/29/21 18:59 Dose: 1 mg Documented by: Multi-Ingred Cream/Lotion/Oil/Oint (Mineral Oil/Petrolatum,White 106 Gm Tube) 1 appl TOPICAL BID [facility]; Protocol Last Admin: 11/30/21 09:15 Dose: Not Given Documented by: Nicotine (Nicotine 14 Mg Patch.Td24) 14 mg TRANSDERMA DAILY [facility] Last Admin: 11/30/21 09:51 Dose: Not Given Documented by: Nicotine Polacrilex (Nicotine Polacrilex 2 Mg Gum) 4 mg BUCCAL Q1H PRN PRN Reason: Nicotine Cravings Last Admin: 11/30/21 14:32 Dose: 4 mg Documented by: Nf Medication ( Similasan Complete Eye Relief 2 Drop) 2 drop EYE-BOTH BID PRN PRN Reason: eye dryness Last Admin: 11/30/21 09:46 Dose: 2 drop Documented by: Polyethylene Glycol (Polyethylene Glycol 3350 17 Gm Powd.Pack) 17 gm PO DAILY PRN PRN Reason: Constipation Last Admin: 11/30/21 09:15 Dose: 17 gm Documented by: Psyllium Hydrophilic Mucilloid (Psyllium Seed 3.4 Gm Powd.Pack) 3.4 gm PO DAILY [facility] Last Admin: 11/30/21 09:15 Dose: 3.4 gm Documented by: Quetiapine Fumarate (Quetiapine Fumarate 100 Mg Tablet) 100 mg PO Q6H PRN PRN Reason: anxiety/restlessness Quetiapine Fumarate (Quetiapine Fumarate 100 Mg Tablet) 500 mg PO BEDTIME [facility] Last Admin: 11/29/21 20:30 Dose: 500 mg Documented by: Ropinirole HCl (Ropinirole Hcl 2 Mg Tablet) 2 mg PO DAILY@1900 [facility] Last Admin: 11/29/21 19:00 Dose: 2 mg Documented by: Senna/Docusate Sodium (Sennosides/Docusate Sodium Tablet) 1 tab PO BID [facility] Last Admin: 11/30/21 09:15 Dose: 1 tab Documented by: Sodium Chloride (Sodium Chloride 0.65 % Nasal 44 Ml Sprbtl) 1 spray NOSTRIL-B Q1H PRN PRN Reason: congestion Last Admin: 11/30/21 09:46 Dose: 1 spray Documented by: Trazodone HCl (Trazodone Hcl 25 Mg Halftab) 75 mg PO BEDTIME PRN PRN Reason: insomnia Last Admin: 11/28/21 21:42 Dose: 75 mg Documented by: Trolamine Salicylate/Aloe Vera (Trolamine Salicylate 10%/Aloe Cream 35.4 Gm) 1 appl TOPICAL QID PRN PRN Reason: leg pain Trolamine Salicylate/Aloe Vera (Trolamine Salicylate 10%/Aloe Cream 35.4 Gm) 1 appl TOPICAL QID PRN PRN Reason: mild-mod pain Last Admin: 11/21/21 16:20 Dose: 1 appl Documented by: Vitamin D (Cholecalciferol (Vitamin D3) 25 Mcg Tablet) 25 mcg PO DAILY [facility] Last Admin: 11/30/21 09:14 Dose: 25 mcg Documented by: Allergies Allergies Allergy/AdvReac Type Severity Reaction Status Date / Time aripiprazole [From Abilify] Allergy Unknown Involuntary Verified 08/19/21 07:20 Spasms chlorpromazine Allergy Unknown Nausea and Verified 08/19/21 07:20 [From Thorazine] Vomiting haloperidol [From Haldol] Allergy Unknown Involuntary Verified 08/19/21 07:20 Spasms olanzapine [From Zyprexa] Allergy Unknown Involuntary Verified 08/19/21 07:20 Spasms paliperidone [From Invega] Allergy Unknown Hallucinati Verified 08/19/21 07:20 ons risperidone Allergy Unknown Involuntary Verified 08/19/21 07:20 Spasms Assessment & Plan Assessment & Plan (1) Schizoaffective disorder, bipolar type: Status: Acute Code(s): F25.0 - Schizoaffective disorder, bipolar type (2) Lumbar radiculopathy: Status: Acute Code(s): M54.16 - Radiculopathy, lumbar region (3) Hip pain, left: Status: Acute Code(s): M25.552 - Pain in left hip Plan 11/05/21: Continue current plan. Support in transition 11/06/2021: Continue current regimen and plans. No changes were made today 11/07/2021: Continue current plans and regimen. No changes were made today 11/08/21: Discontinue a.m. Seroquel 100 mg Increase p.m. Seroquel to 700 mg from 600 mg, consolidating dosages per pt request to improve mgt of daytime sedation. 11/09/21: No changes today Throat culture, COVID-19 testing, throat lozenges prn 11/10/21: R/O CKD sx. Nephrology consultation. Discontinue Onset Lamictal 25 mg hs Encourage fluids Synthroid 12.5 mcg daily 11/11/21: No regime changes today. Continue to monitor 11/12/21: Discontinue atarax, lidocaine Requip, a.m. dose, Lidocaine per pt request Change prn Seroquel to 100 mg po q 6 h prn from 200 mg po q 6h prn Continue to monitor physical symptoms 11/13/21: No medication changes 11/14/21: increase ativan to 1 mg QHS for sleep, anxiety 11/15/21: No medication changes today 11/17/21: Support pt in transition to community. 11/18/21: Continue current plan 11/19/21: Continue current plan 11/20: Increase Cymbalta to 40 mg daily 11/21 start Voltaren 50 mg BID. No change in psychotropics. 11/22/21: Decrease Seroquel by 100 mg daily at HS Increase Lamictal to 50 mg daily CBCD, CMP Support through this process of transition. 11/23/21 Declined labs today. Re-ordered for 11/24. Support through transitional process. 11/24/21 Decrease Seroquel to 500 mg HS Magnesium Citrate x 1 prn constipation Eucerin Cream to feet. 11/25/21 Continue current plan of care Support in transition. 11/26/21 K+ level 11/27 Continue current plan of care Support in transition. 11/27 no changes to current plan 11/28 no changes to current plan 11/29 Continue current plan I spent minutes with the patient and/or on the patient floor today, greater than?50% of which was spent counseling/coordinating care. Patient educated on: therapeutic strategies Informed Consent: understands and further education needed Reason for contiued inpatient stay Substantial Risk for: inability to function and rapid decompensation
[2021-11-30] MEDS: Capsaicin 0.025% Cream 60 GM TUBE 1 APPL TOPICAL (17:00)
[2021-11-30] MEDS: rOPINIRole HCL 2 MG TABLET PO ×2 (18:20→18:31)
[2021-11-30] MEDS: LORazepam 1 MG TABLET PO (18:40)
[2021-11-30 18:55] VITALS: BP 130/79; PULSE 86; TEMP 36.2; O2SAT 96
[2021-11-30] MEDS: lamoTRIgine 25 MG TABLET 50 MG PO (20:05)
[2021-11-30] MEDS: QUEtiapine Fumarate 100 MG TABLET 500 MG PO (20:06)
[2021-11-30] MEDS: traZODone HCL 25 MG HALFTAB 75 MG PO (20:16)
[2021-12-01 06:00] VITALS: BP 128/74; PULSE 88; RESP 16; TEMP 36.4; O2SAT 96
[2021-12-01] MEDS: Levothyroxine Sodium 25 MCG TABLET 12.5 MCG PO (06:02)
[2021-12-01] MEDS: Sodium Chloride 0.65 % Nasal 44 ML SPRBTL 1 SPRAY NOSTRIL-B ×2 (09:45→20:27)
[2021-12-01] MEDS: Nicotine Polacrilex 2 MG GUM 4 MG BUCCAL ×4 (09:46→20:25)
[2021-12-01] MEDS: polyethylene glycoL 3350 17 GM POWD.PACK PO (09:48)
[2021-12-01] MEDS: Cholecalciferol (Vitamin D3) 25 MCG TABLET PO (09:48)
[2021-12-01] MEDS: DULoxetine HCl 20 MG CAPSULE.DR 40 MG PO (09:48)
[2021-12-01] MEDS: amLODIPine Besylate 2.5 MG TABLET PO (09:48)
[2021-12-01] MEDS: Gabapentin 400 MG CAPSULE 800 MG PO ×3 (09:48→20:17)
[2021-12-01] MEDS: Docusate Sodium 100 MG CAPSULE PO ×2 (09:48→20:15)
[2021-12-01] MEDS: Sennosides/Docusate Sodium TABLET 1 TAB PO ×2 (09:48→20:16)
[2021-12-01] MEDS: Diclofenac Sodium Delayed Rel 50 MG TABLET.DR PO ×2 (09:49→20:16)
[2021-12-01] MEDS: Cyanocobalamin (Vitamin B-12) 100 MCG TABLET PO (09:49)
[2021-12-01] MEDS: Capsaicin 0.025% Cream 60 GM TUBE 1 APPL TOPICAL (09:56)
--- NOTE | 2021-12-01 15:28 | P.PNPSI_ITS ---
Subjective Subjective Date of Service: 12/01/21 Reason For Visit: Bipolar, Schizoaffective Subjective Notes: Conditional Voluntary Healthcare Proxy: No Guardianship: No Medical Problems Affecting Mental Status: No Interim History: Reading, in bed. Interactive with and supportive of her room-mate. Denies issues of convern today. Medication Compliance: Yes Side effects from medications: No Attending Groups: Intermittent Review of Systems Acute medical concerns: No Medical Review of Systems: unchanged Review of Systems Psychiatric: Reports no additional psychiatric complaints Mental Status Exam Mental Status Exam Patient Appearance: Appropriate Patient Orientation: Person, Place, Time and Situation Level of Consciousness: Alert Patient Behavior: Talkative and Good Eye Contact Mood Description: Anxious and Apprehensive Affect Description: Anxious, Flat and Apprehensive Patient Cognition Impaired: No Ability to Follow Directions: Good Speech Pattern: Spontaneous Speech Hallucinations: Auditory (baseline) Delusions: Not Present Perceptual Disturbances: Depersonalization and Derealization Thought Process: Goal Oriented Thought Content: positive for [place] and positive for Circumstantial Depressive Symptoms: Increased Anxiety, Increased Fatigue and Loss of Energy Judgement: Good Diagnostics Vital Signs (24Hr): Vital Signs - 24 hr 11/30/21 18:55 12/01/21 06:00 Temperature 97.1 F 97.6 F Pulse Rate 86 88 Respiratory Rate 16 Blood Pressure 130/79 128/74 Pulse Oximetry 96 96 BMI result Body Mass Index 38.0 Labs Results: 11/24/21 08:08 11/24/21 08:08 Imaging Radiology Impressions: ITS Impressions Abdomen Ultrasound 09/01/21 08:59 IMPRESSION: Slightly echogenic liver. Limited evaluation of the gallbladder as the patient has recently eaten. No gallstone seen. Limited visualization of the pancreas. Hip X-Ray 09/16/21 14:47 IMPRESSION: Moderate to severe left hip arthritis. Medications Medications Current Medications Acetaminophen (Acetaminophen 325 Mg Tablet) 975 mg PO Q6H PRN PRN Reason: Headache/Pain Mild Scale (1-3) Last Admin: 11/26/21 16:22 Dose: 975 mg Documented by: Amlodipine Besylate (Amlodipine Besylate 2.5 Mg Tablet) 2.5 mg PO DAILY [facility]; Protocol Last Admin: 12/01/21 09:48 Dose: 2.5 mg Documented by: Artificial Tears (Artificial Tears 15 Ml Drops) 2 drop EYE-BOTH Q4H PRN PRN Reason: Dry Eyes Last Admin: 11/19/21 08:54 Dose: 2 drop Documented by: Artificial Tears (Artificial Tears 15 Ml Drops) 2 drop EYE-BOTH Q4H PRN PRN Reason: dry eyes Benzocaine (Benzocaine 20 % Oral Gel 9 Gm Tube) 1 appl MUCOUS MEM QID PRN; Protocol PRN Reason: Mouth Sore Pain Last Admin: 08/31/21 03:05 Dose: 1 appl Documented by: Benzocaine (Throat Lozenge, Medicated Lozenge) 1 lozenge MUCOUS MEM Q2H PRN PRN Reason: Sore Throat Calcium Carbonate (Calcium Carbonate 500 Mg Tablet) 500 mg PO DAILY [facility] Last Admin: 12/01/21 09:48 Dose: 500 mg Documented by: Calcium Carbonate (Calcium Carbonate 750 Mg Tab.Chew) 750 mg PO Q4H PRN PRN Reason: Heartburn Last Admin: 11/06/21 20:15 Dose: 750 mg Documented by: Capsaicin (Capsaicin 0.025% Cream 60 Gm Tube) 1 appl TOPICAL QID PRN; Protocol PRN Reason: leg pain Last Admin: 12/01/21 09:56 Dose: 1 appl Documented by: Clotrimazole (Clotrimazole 1 % Cream 15 Gm Tube) 1 appl TOPICAL BID [facility]; Protocol Last Admin: 12/01/21 09:58 Dose: Not Given Documented by: [place] Butter/Zinc Oxide ([place] Butter/Zinc Oxide Supp.Rect) 1 supp ME BEDTIME PRN PRN Reason: hemorrhoid pain Last Admin: 09/13/21 21:15 Dose: 1 supp Documented by: Cyanocobalamin (Cyanocobalamin (Vitamin B-12) 100 Mcg Tablet) 100 mcg PO DAILY [facility] Last Admin: 12/01/21 09:49 Dose: 100 mcg Documented by: Diclofenac Sodium (Diclofenac Sodium Delayed Rel 50 Mg Tablet.) 50 mg PO BID [facility] Last Admin: 12/01/21 09:49 Dose: 50 mg Documented by: Docusate Sodium (Docusate Sodium 100 Mg Capsule) 100 mg PO BID [facility] Last Admin: 12/01/21 09:48 Dose: 100 mg Documented by: Duloxetine HCl (Duloxetine Hcl 20 Mg Capsule.) 40 mg PO DAILY [facility] Last Admin: 12/01/21 09:48 Dose: 40 mg Documented by: Gabapentin (Gabapentin 400 Mg Capsule) 800 mg PO TID [facility] Last Admin: 12/01/21 14:48 Dose: 800 mg Documented by: Gabapentin (Gabapentin 100 Mg Capsule) 100 mg PO TID PRN PRN Reason: neuropathic pain Last Admin: 09/26/21 17:14 Dose: 100 mg Documented by: Lamotrigine (Lamotrigine 25 Mg Tablet) 50 mg PO BEDTIME [facility] Last Admin: 11/30/21 20:05 Dose: 50 mg Documented by: Levothyroxine Sodium (Levothyroxine Sodium 25 Mcg Tablet) 12.5 mcg PO DAILY@0600 [facility] Last Admin: 12/01/21 06:02 Dose: 12.5 mcg Documented by: Lorazepam (Lorazepam 1 Mg Tablet) 1 mg PO DAILY PRN PRN Reason: anxiety Last Admin: 11/30/21 18:40 Dose: 1 mg Documented by: Multi-Ingred Cream/Lotion/Oil/Oint (Mineral Oil/Petrolatum,White 106 Gm Tube) 1 appl TOPICAL BID [facility]; Protocol Last Admin: 12/01/21 09:58 Dose: Not Given Documented by: Nicotine (Nicotine 14 Mg Patch.Td24) 14 mg TRANSDERMA DAILY [facility] Last Admin: 12/01/21 09:58 Dose: Not Given Documented by: Nicotine Polacrilex (Nicotine Polacrilex 2 Mg Gum) 4 mg BUCCAL Q1H PRN PRN Reason: Nicotine Cravings Last Admin: 12/01/21 14:48 Dose: 4 mg Documented by: Nf Medication ( Similasan Complete Eye Relief 2 Drop) 2 drop EYE-BOTH BID PRN PRN Reason: eye dryness Last Admin: 12/01/21 09:45 Dose: 2 drop Documented by: Polyethylene Glycol (Polyethylene Glycol 3350 17 Gm Powd.Pack) 17 gm PO DAILY PRN PRN Reason: Constipation Last Admin: 12/01/21 09:48 Dose: 17 gm Documented by: Psyllium Hydrophilic Mucilloid (Psyllium Seed 3.4 Gm Powd.Pack) 3.4 gm PO DAILY [facility] Last Admin: 12/01/21 09:48 Dose: 3.4 gm Documented by: Quetiapine Fumarate (Quetiapine Fumarate 100 Mg Tablet) 100 mg PO Q6H PRN PRN Reason: anxiety/restlessness Quetiapine Fumarate (Quetiapine Fumarate 100 Mg Tablet) 500 mg PO BEDTIME [facility] Last Admin: 11/30/21 20:06 Dose: 500 mg Documented by: Ropinirole HCl (Ropinirole Hcl 2 Mg Tablet) 2 mg PO DAILY@1900 [facility] Last Admin: 11/30/21 18:31 Dose: 2 mg Documented by: Senna/Docusate Sodium (Sennosides/Docusate Sodium Tablet) 1 tab PO BID [facility] Last Admin: 12/01/21 09:48 Dose: 1 tab Documented by: Sodium Chloride (Sodium Chloride 0.65 % Nasal 44 Ml Sprbtl) 1 spray NOSTRIL-B Q1H PRN PRN Reason: congestion Last Admin: 12/01/21 09:45 Dose: 1 spray Documented by: Trazodone HCl (Trazodone Hcl 25 Mg Halftab) 75 mg PO BEDTIME PRN PRN Reason: insomnia Last Admin: 11/30/21 20:16 Dose: 75 mg Documented by: Trolamine Salicylate/Aloe Vera (Trolamine Salicylate 10%/Aloe Cream 35.4 Gm) 1 appl TOPICAL QID PRN PRN Reason: leg pain Trolamine Salicylate/Aloe Vera (Trolamine Salicylate 10%/Aloe Cream 35.4 Gm) 1 appl TOPICAL QID PRN PRN Reason: mild-mod pain Last Admin: 11/21/21 16:20 Dose: 1 appl Documented by: Vitamin D (Cholecalciferol (Vitamin D3) 25 Mcg Tablet) 25 mcg PO DAILY [facility] Last Admin: 12/01/21 09:48 Dose: 25 mcg Documented by: Allergies Allergies Allergy/AdvReac Type Severity Reaction Status Date / Time aripiprazole [From Abilify] Allergy Unknown Involuntary Verified 08/19/21 07:20 Spasms chlorpromazine Allergy Unknown Nausea and Verified 08/19/21 07:20 [From Thorazine] Vomiting haloperidol [From Haldol] Allergy Unknown Involuntary Verified 08/19/21 07:20 Spasms olanzapine [From Zyprexa] Allergy Unknown Involuntary Verified 08/19/21 07:20 Spasms paliperidone [From Invega] Allergy Unknown Hallucinati Verified 08/19/21 07:20 ons risperidone Allergy Unknown Involuntary Verified 08/19/21 07:20 Spasms Assessment & Plan Assessment & Plan (1) Schizoaffective disorder, bipolar type: Status: Acute Code(s): F25.0 - Schizoaffective disorder, bipolar type (2) Lumbar radiculopathy: Status: Acute Code(s): M54.16 - Radiculopathy, lumbar region (3) Hip pain, left: Status: Acute Code(s): M25.552 - Pain in left hip Plan 11/05/21: Continue current plan. Support in transition 11/06/2021: Continue current regimen and plans. No changes were made today 11/07/2021: Continue current plans and regimen. No changes were made today 11/08/21: Discontinue a.m. Seroquel 100 mg Increase p.m. Seroquel to 700 mg from 600 mg, consolidating dosages per pt request to improve mgt of daytime sedation. 11/09/21: No changes today Throat culture, COVID-19 testing, throat lozenges prn 11/10/21: R/O CKD sx. Nephrology consultation. Discontinue [place] Lamictal 25 mg hs Encourage fluids Synthroid 12.5 mcg daily 11/11/21: No regime changes today. Continue to monitor 11/12/21: Discontinue atarax, lidocaine Requip, a.m. dose, Lidocaine per pt request Change prn Seroquel to 100 mg po q 6 h prn from 200 mg po q 6h prn Continue to monitor physical symptoms 11/13/21: No medication changes 11/14/21: increase ativan to 1 mg QHS for sleep, anxiety 11/15/21: No medication changes today 11/17/21: Support pt in transition to community. 11/18/21: Continue current plan 11/19/21: Continue current plan 11/20: Increase Cymbalta to 40 mg daily 11/21 start Voltaren 50 mg BID. No change in psychotropics. 11/22/21: Decrease Seroquel by 100 mg daily at HS Increase Lamictal to 50 mg daily CBCD, CMP Support through this process of transition. 11/23/21 Declined labs today. Re-ordered for 11/24. Support through transitional process. 11/24/21 Decrease Seroquel to 500 mg HS Magnesium Citrate x 1 prn constipation Eucerin Cream to feet. 11/25/21 Continue current plan of care Support in transition. 11/26/21 K+ level 11/27 Continue current plan of care Support in transition. 11/27 no changes to current plan 11/28 no changes to current plan 11/29 Continue current plan 11/30/21: Continue current plan. Support in transition. I spent minutes with the patient and/or on the patient floor today, greater than?50% of which was spent counseling/coordinating care. Patient educated on: therapeutic strategies Informed Consent: understands and further education needed Reason for contiued inpatient stay Substantial Risk for: inability to function and rapid decompensation
[2021-12-01] MEDS: LORazepam 1 MG TABLET PO (16:24)
[2021-12-01 18:00] VITALS: BP 107/59; PULSE 70; RESP 18; TEMP 36.6; O2SAT 98
[2021-12-01] MEDS: rOPINIRole HCL 2 MG TABLET PO (19:22)
[2021-12-01] MEDS: lamoTRIgine 25 MG TABLET 50 MG PO (20:17)
[2021-12-01] MEDS: QUEtiapine Fumarate 100 MG TABLET 500 MG PO (20:18)
[2021-12-01] MEDS: traZODone HCL 25 MG HALFTAB 75 MG PO (20:21)
[2021-12-02 06:00] VITALS: BP 105/59; PULSE 70; RESP 18; TEMP 36.3; O2SAT 99
[2021-12-02] MEDS: Levothyroxine Sodium 25 MCG TABLET 12.5 MCG PO (06:04)
[2021-12-02] MEDS: Nicotine Polacrilex 2 MG GUM 4 MG BUCCAL ×4 (08:37→20:29)
[2021-12-02] MEDS: Capsaicin 0.025% Cream 60 GM TUBE 1 APPL TOPICAL (09:16)
[2021-12-02] MEDS: Sodium Chloride 0.65 % Nasal 44 ML SPRBTL 1 SPRAY NOSTRIL-B (09:16)
[2021-12-02] MEDS: Cyanocobalamin (Vitamin B-12) 100 MCG TABLET PO (09:17)
[2021-12-02] MEDS: DULoxetine HCl 20 MG CAPSULE.DR 40 MG PO (09:17)
[2021-12-02] MEDS: Sennosides/Docusate Sodium TABLET 1 TAB PO ×2 (09:17→20:15)
[2021-12-02] MEDS: Gabapentin 400 MG CAPSULE 800 MG PO ×3 (09:17→20:14)
[2021-12-02] MEDS: Diclofenac Sodium Delayed Rel 50 MG TABLET.DR PO ×2 (09:17→20:15)
[2021-12-02] MEDS: amLODIPine Besylate 2.5 MG TABLET PO (09:17)
[2021-12-02] MEDS: Docusate Sodium 100 MG CAPSULE PO ×2 (09:17→20:15)
[2021-12-02] MEDS: polyethylene glycoL 3350 17 GM POWD.PACK PO (09:17)
[2021-12-02] MEDS: Cholecalciferol (Vitamin D3) 25 MCG TABLET PO (09:17)
--- NOTE | 2021-12-02 16:25 | P.PNPSI_ITS ---
Subjective Subjective Date of Service: 12/02/21 Reason For Visit: Bipolar, Schizoaffective Subjective Notes: Conditional Voluntary Healthcare Proxy: No Guardianship: No Medical Problems Affecting Mental Status: No Interim History: Blanca reports feeling well. She continues with apprehension regarding upcoming placement and expresses frustration with the treatment she has received from her [place] out patient team. Support, listening and education were offered today. She reports her medication regime to be without adverse effects and to be helpful. Medication Compliance: Yes Side effects from medications: No Attending Groups: Yes Review of Systems Acute medical concerns: No Medical Review of Systems: unchanged Review of Systems Psychiatric: Reports no additional psychiatric complaints Mental Status Exam Mental Status Exam Patient Appearance: Appropriate Patient Orientation: Person, Place, Time and Situation Level of Consciousness: Alert Patient Behavior: Talkative and Good Eye Contact Mood Description: Anxious and Apprehensive Affect Description: Anxious, Flat and Apprehensive Patient Cognition Impaired: No Ability to Follow Directions: Good Speech Pattern: Spontaneous Speech Hallucinations: Auditory (baseline) Delusions: Not Present Perceptual Disturbances: Depersonalization and Derealization Thought Process: Goal Oriented Thought Content: positive for [place] and positive for Circumstantial Depressive Symptoms: Increased Anxiety, Increased Fatigue and Loss of Energy Judgement: Good Diagnostics Vital Signs (24Hr): Vital Signs - 24 hr 12/01/21 18:00 12/02/21 06:00 Temperature 97.8 F 97.4 F Pulse Rate 70 70 Respiratory Rate 18 18 Blood Pressure 107/59 L 105/59 L Pulse Oximetry 98 99 BMI result Body Mass Index 38.0 Labs Results: 11/24/21 08:08 11/24/21 08:08 Imaging Radiology Impressions: ITS Impressions Abdomen Ultrasound 09/01/21 08:59 IMPRESSION: Slightly echogenic liver. Limited evaluation of the gallbladder as the patient has recently eaten. No gallstone seen. Limited visualization of the pancreas. Hip X-Ray 09/16/21 14:47 IMPRESSION: Moderate to severe left hip arthritis. Medications Medications Current Medications Acetaminophen (Acetaminophen 325 Mg Tablet) 975 mg PO Q6H PRN PRN Reason: Headache/Pain Mild Scale (1-3) Last Admin: 11/26/21 16:22 Dose: 975 mg Documented by: Amlodipine Besylate (Amlodipine Besylate 2.5 Mg Tablet) 2.5 mg PO DAILY [facility]; Protocol Last Admin: 12/02/21 09:17 Dose: 2.5 mg Documented by: Artificial Tears (Artificial Tears 15 Ml Drops) 2 drop EYE-BOTH Q4H PRN PRN Reason: Dry Eyes Last Admin: 11/19/21 08:54 Dose: 2 drop Documented by: Artificial Tears (Artificial Tears 15 Ml Drops) 2 drop EYE-BOTH Q4H PRN PRN Reason: dry eyes Benzocaine (Benzocaine 20 % Oral Gel 9 Gm Tube) 1 appl MUCOUS MEM QID PRN; Protocol PRN Reason: Mouth Sore Pain Last Admin: 08/31/21 03:05 Dose: 1 appl Documented by: Benzocaine (Throat Lozenge, Medicated Lozenge) 1 lozenge MUCOUS MEM Q2H PRN PRN Reason: Sore Throat Calcium Carbonate (Calcium Carbonate 500 Mg Tablet) 500 mg PO DAILY [facility] Last Admin: 12/02/21 09:17 Dose: 500 mg Documented by: Calcium Carbonate (Calcium Carbonate 750 Mg Tab.Chew) 750 mg PO Q4H PRN PRN Reason: Heartburn Last Admin: 11/06/21 20:15 Dose: 750 mg Documented by: Capsaicin (Capsaicin 0.025% Cream 60 Gm Tube) 1 appl TOPICAL QID PRN; Protocol PRN Reason: leg pain Last Admin: 12/02/21 09:16 Dose: 1 appl Documented by: Clotrimazole (Clotrimazole 1 % Cream 15 Gm Tube) 1 appl TOPICAL BID [facility]; Protocol Last Admin: 12/02/21 10:01 Dose: Not Given Documented by: [place] Butter/Zinc Oxide ([place] Butter/Zinc Oxide Supp.Rect) 1 supp [place] BEDTIME PRN PRN Reason: hemorrhoid pain Last Admin: 09/13/21 21:15 Dose: 1 supp Documented by: Cyanocobalamin (Cyanocobalamin (Vitamin B-12) 100 Mcg Tablet) 100 mcg PO DAILY [facility] Last Admin: 12/02/21 09:17 Dose: 100 mcg Documented by: Diclofenac Sodium (Diclofenac Sodium Delayed Rel 50 Mg Tablet.) 50 mg PO BID [facility] Last Admin: 12/02/21 09:17 Dose: 50 mg Documented by: Docusate Sodium (Docusate Sodium 100 Mg Capsule) 100 mg PO BID [facility] Last Admin: 12/02/21 09:17 Dose: 100 mg Documented by: Duloxetine HCl (Duloxetine Hcl 20 Mg Capsule.) 40 mg PO DAILY [facility] Last Admin: 12/02/21 09:17 Dose: 40 mg Documented by: Gabapentin (Gabapentin 400 Mg Capsule) 800 mg PO TID [facility] Last Admin: 12/02/21 15:17 Dose: 800 mg Documented by: Gabapentin (Gabapentin 100 Mg Capsule) 100 mg PO TID PRN PRN Reason: neuropathic pain Last Admin: 09/26/21 17:14 Dose: 100 mg Documented by: Lamotrigine (Lamotrigine 25 Mg Tablet) 50 mg PO BEDTIME [facility] Last Admin: 12/01/21 20:17 Dose: 50 mg Documented by: Levothyroxine Sodium (Levothyroxine Sodium 25 Mcg Tablet) 12.5 mcg PO DAILY@0600 [facility] Last Admin: 12/02/21 06:04 Dose: 12.5 mcg Documented by: Lorazepam (Lorazepam 1 Mg Tablet) 1 mg PO DAILY PRN PRN Reason: anxiety Last Admin: 12/01/21 16:24 Dose: 1 mg Documented by: Multi-Ingred Cream/Lotion/Oil/Oint (Mineral Oil/Petrolatum,White 106 Gm Tube) 1 appl TOPICAL BID [facility]; Protocol Last Admin: 12/02/21 10:01 Dose: Not Given Documented by: Nicotine (Nicotine 14 Mg Patch.Td24) 14 mg TRANSDERMA DAILY [facility] Last Admin: 12/02/21 10:01 Dose: Not Given Documented by: Nicotine Polacrilex (Nicotine Polacrilex 2 Mg Gum) 4 mg BUCCAL Q1H PRN PRN Reason: Nicotine Cravings Last Admin: 12/02/21 15:17 Dose: 4 mg Documented by: Nf Medication ( Similasan Complete Eye Relief 2 Drop) 2 drop EYE-BOTH BID PRN PRN Reason: eye dryness Last Admin: 12/02/21 09:16 Dose: 2 drop Documented by: Polyethylene Glycol (Polyethylene Glycol 3350 17 Gm Powd.Pack) 17 gm PO DAILY PRN PRN Reason: Constipation Last Admin: 12/02/21 09:17 Dose: 17 gm Documented by: Psyllium Hydrophilic Mucilloid (Psyllium Seed 3.4 Gm Powd.Pack) 3.4 gm PO DAILY [facility] Last Admin: 12/02/21 09:16 Dose: 3.4 gm Documented by: Quetiapine Fumarate (Quetiapine Fumarate 100 Mg Tablet) 100 mg PO Q6H PRN PRN Reason: anxiety/restlessness Quetiapine Fumarate (Quetiapine Fumarate 100 Mg Tablet) 500 mg PO BEDTIME [facility] Last Admin: 12/01/21 20:18 Dose: 500 mg Documented by: Ropinirole HCl (Ropinirole Hcl 2 Mg Tablet) 2 mg PO DAILY@1900 [facility] Last Admin: 12/01/21 19:22 Dose: 2 mg Documented by: Senna/Docusate Sodium (Sennosides/Docusate Sodium Tablet) 1 tab PO BID [facility] Last Admin: 12/02/21 09:17 Dose: 1 tab Documented by: Sodium Chloride (Sodium Chloride 0.65 % Nasal 44 Ml Sprbtl) 1 spray NOSTRIL-B Q1H PRN PRN Reason: congestion Last Admin: 12/02/21 09:16 Dose: 1 spray Documented by: Trazodone HCl (Trazodone Hcl 25 Mg Halftab) 75 mg PO BEDTIME PRN PRN Reason: insomnia Last Admin: 12/01/21 20:21 Dose: 75 mg Documented by: Trolamine Salicylate/Aloe Vera (Trolamine Salicylate 10%/Aloe Cream 35.4 Gm) 1 appl TOPICAL QID PRN PRN Reason: leg pain Trolamine Salicylate/Aloe Vera (Trolamine Salicylate 10%/Aloe Cream 35.4 Gm) 1 appl TOPICAL QID PRN PRN Reason: mild-mod pain Last Admin: 11/21/21 16:20 Dose: 1 appl Documented by: Vitamin D (Cholecalciferol (Vitamin D3) 25 Mcg Tablet) 25 mcg PO DAILY [facility] Last Admin: 12/02/21 09:17 Dose: 25 mcg Documented by: Allergies Allergies Allergy/AdvReac Type Severity Reaction Status Date / Time aripiprazole [From Abilify] Allergy Unknown Involuntary Verified 08/19/21 07:20 Spasms chlorpromazine Allergy Unknown Nausea and Verified 08/19/21 07:20 [From Thorazine] Vomiting haloperidol [From Haldol] Allergy Unknown Involuntary Verified 08/19/21 07:20 Spasms olanzapine [From Zyprexa] Allergy Unknown Involuntary Verified 08/19/21 07:20 Spasms paliperidone [From Invega] Allergy Unknown Hallucinati Verified 08/19/21 07:20 ons risperidone Allergy Unknown Involuntary Verified 08/19/21 07:20 Spasms Assessment & Plan Assessment & Plan (1) Schizoaffective disorder, bipolar type: Status: Acute Code(s): F25.0 - Schizoaffective disorder, bipolar type (2) Lumbar radiculopathy: Status: Acute Code(s): M54.16 - Radiculopathy, lumbar region (3) Hip pain, left: Status: Acute Code(s): M25.552 - Pain in left hip Plan 11/05/21: Continue current plan. Support in transition 11/06/2021: Continue current regimen and plans. No changes were made today 11/07/2021: Continue current plans and regimen. No changes were made today 11/08/21: Discontinue a.m. Seroquel 100 mg Increase p.m. Seroquel to 700 mg from 600 mg, consolidating dosages per pt request to improve mgt of daytime sedation. 11/09/21: No changes today Throat culture, COVID-19 testing, throat lozenges prn 11/10/21: R/O CKD sx. Nephrology consultation. Discontinue [place] Lamictal 25 mg hs Encourage fluids Synthroid 12.5 mcg daily 11/11/21: No regime changes today. Continue to monitor 11/12/21: Discontinue atarax, lidocaine Requip, a.m. dose, Lidocaine per pt request Change prn Seroquel to 100 mg po q 6 h prn from 200 mg po q 6h prn Continue to monitor physical symptoms 11/13/21: No medication changes 11/14/21: increase ativan to 1 mg QHS for sleep, anxiety 11/15/21: No medication changes today 11/17/21: Support pt in transition to community. 11/18/21: Continue current plan 11/19/21: Continue current plan 11/20: Increase Cymbalta to 40 mg daily 11/21 start Voltaren 50 mg BID. No change in psychotropics. 11/22/21: Decrease Seroquel by 100 mg daily at HS Increase Lamictal to 50 mg daily CBCD, CMP Support through this process of transition. 11/23/21 Declined labs today. Re-ordered for 11/24. Support through transitional process. 11/24/21 Decrease Seroquel to 500 mg HS Magnesium Citrate x 1 prn constipation Eucerin Cream to feet. 11/25/21 Continue current plan of care Support in transition. 11/26/21 K+ level 11/27 Continue current plan of care Support in transition. 11/27 no changes to current plan 11/28 no changes to current plan 11/29 Continue current plan 11/30/21: Continue current plan. Support in transition. 12/02/21: No changes in current plan. Support in transition. I spent minutes with the patient and/or on the patient floor today, greater than?50% of which was spent counseling/coordinating care. Informed Consent: understands Reason for contiued inpatient stay Substantial Risk for: inability to function and rapid decompensation
[2021-12-02 17:03] VITALS: BP 120/56; PULSE 74; RESP 18; TEMP 36.2; O2SAT 98
[2021-12-02] MEDS: lamoTRIgine 25 MG TABLET 50 MG PO (20:14)
[2021-12-02] MEDS: QUEtiapine Fumarate 100 MG TABLET 500 MG PO (20:14)
[2021-12-02] MEDS: rOPINIRole HCL 2 MG TABLET PO (20:15)
[2021-12-02] MEDS: LORazepam 1 MG TABLET PO (20:18)
[2021-12-02] MEDS: Calcium Carbonate 750 MG TAB.CHEW PO (20:19)
[2021-12-02] MEDS: traZODone HCL 25 MG HALFTAB 75 MG PO (20:19)
[2021-12-03] MEDS: Levothyroxine Sodium 25 MCG TABLET 12.5 MCG PO (06:02)
[2021-12-03 09:00] VITALS: BP 139/89; PULSE 92; TEMP 36.9
[2021-12-03] MEDS: DULoxetine HCl 20 MG CAPSULE.DR 40 MG PO (09:15)
[2021-12-03] MEDS: Diclofenac Sodium Delayed Rel 50 MG TABLET.DR PO ×2 (09:16→20:40)
[2021-12-03] MEDS: amLODIPine Besylate 2.5 MG TABLET PO (09:16)
[2021-12-03] MEDS: Cyanocobalamin (Vitamin B-12) 100 MCG TABLET PO (09:16)
[2021-12-03] MEDS: Docusate Sodium 100 MG CAPSULE PO ×2 (09:17→20:41)
[2021-12-03] MEDS: Sennosides/Docusate Sodium TABLET 1 TAB PO ×2 (09:17→20:41)
[2021-12-03] MEDS: Gabapentin 400 MG CAPSULE 800 MG PO ×3 (09:17→20:40)
[2021-12-03] MEDS: Cholecalciferol (Vitamin D3) 25 MCG TABLET PO (09:17)
[2021-12-03] MEDS: Clotrimazole 1 % Cream 15 GM TUBE 1 APPL TOPICAL (09:18)
[2021-12-03] MEDS: Mineral Oil/Petrolatum,White 106 GM Tube 1 APPL TOPICAL (09:18)
[2021-12-03] MEDS: Sodium Chloride 0.65 % Nasal 44 ML SPRBTL 1 SPRAY NOSTRIL-B ×3 (09:19→20:40)
[2021-12-03] MEDS: Capsaicin 0.025% Cream 60 GM TUBE 1 APPL TOPICAL (09:23)
[2021-12-03] MEDS: Nicotine Polacrilex 2 MG GUM 4 MG BUCCAL ×4 (09:32→19:23)
[2021-12-03] MEDS: Magnesium Citrate 300 ML SOLUTION PO (12:38)
[2021-12-03] MEDS: Acetaminophen 325 MG TABLET 975 MG PO (12:43)
[2021-12-03] MEDS: Omeprazole 20 MG CAPSULE.DR PO (15:50)
[2021-12-03 16:52] VITALS: BP 112/75; PULSE 71; RESP 18; TEMP 36.6; O2SAT 98
--- NOTE | 2021-12-03 17:48 | P.PNPSI_ITS ---
Subjective Subjective Date of Service: 12/03/21 Reason For Visit: Bipolar, Schizoaffective Subjective Notes: Conditional Voluntary Healthcare Proxy: No Guardianship: No Medical Problems Affecting Mental Status: No Interim History: Blanca requesting Prilosec and Magnesium Citrate for GI sx, no BM x 4.5 days Reports mood is good considering the stress of not knowing where I will live. Medication Compliance: Yes Side effects from medications: No Attending Groups: Yes Review of Systems Acute medical concerns: No Medical Review of Systems: unchanged Review of Systems Psychiatric: Reports no additional psychiatric complaints Mental Status Exam Mental Status Exam Patient Appearance: Appropriate Patient Orientation: Person, Place, Time and Situation Level of Consciousness: Alert Patient Behavior: Talkative and Good Eye Contact Mood Description: Anxious and Apprehensive Affect Description: Anxious, Flat and Apprehensive Patient Cognition Impaired: No Ability to Follow Directions: Good Speech Pattern: Spontaneous Speech Hallucinations: Auditory (baseline) Delusions: Not Present Perceptual Disturbances: Depersonalization and Derealization Thought Process: Goal Oriented Thought Content: positive for [place] and positive for Circumstantial Depressive Symptoms: Increased Anxiety, Increased Fatigue and Loss of Energy Judgement: Good Diagnostics Vital Signs (24Hr): Vital Signs - 24 hr 12/03/21 09:00 12/03/21 16:52 Temperature 98.5 F 97.9 F Pulse Rate 92 71 Respiratory Rate 18 Blood Pressure 139/89 112/75 Pulse Oximetry 98 BMI result Body Mass Index 38.0 Labs Results: 11/24/21 08:08 11/24/21 08:08 Imaging Radiology Impressions: ITS Impressions Abdomen Ultrasound 09/01/21 08:59 IMPRESSION: Slightly echogenic liver. Limited evaluation of the gallbladder as the patient has recently eaten. No gallstone seen. Limited visualization of the pancreas. Hip X-Ray 09/16/21 14:47 IMPRESSION: Moderate to severe left hip arthritis. Medications Medications Current Medications Acetaminophen (Acetaminophen 325 Mg Tablet) 975 mg PO Q6H PRN PRN Reason: Headache/Pain Mild Scale (1-3) Last Admin: 12/03/21 12:43 Dose: 975 mg Documented by: Amlodipine Besylate (Amlodipine Besylate 2.5 Mg Tablet) 2.5 mg PO DAILY [facility]; Protocol Last Admin: 12/03/21 09:16 Dose: 2.5 mg Documented by: Artificial Tears (Artificial Tears 15 Ml Drops) 2 drop EYE-BOTH Q4H PRN PRN Reason: Dry Eyes Last Admin: 11/19/21 08:54 Dose: 2 drop Documented by: Artificial Tears (Artificial Tears 15 Ml Drops) 2 drop EYE-BOTH Q4H PRN PRN Reason: dry eyes Benzocaine (Benzocaine 20 % Oral Gel 9 Gm Tube) 1 appl MUCOUS MEM QID PRN; Protocol PRN Reason: Mouth Sore Pain Last Admin: 08/31/21 03:05 Dose: 1 appl Documented by: Benzocaine (Throat Lozenge, Medicated Lozenge) 1 lozenge MUCOUS MEM Q2H PRN PRN Reason: Sore Throat Calcium Carbonate (Calcium Carbonate 500 Mg Tablet) 500 mg PO DAILY [facility] Last Admin: 12/03/21 09:16 Dose: 500 mg Documented by: Calcium Carbonate (Calcium Carbonate 750 Mg Tab.Chew) 750 mg PO Q4H PRN PRN Reason: Heartburn Last Admin: 12/02/21 20:19 Dose: 750 mg Documented by: Capsaicin (Capsaicin 0.025% Cream 60 Gm Tube) 1 appl TOPICAL QID PRN; Protocol PRN Reason: leg pain Last Admin: 12/03/21 09:23 Dose: 1 appl Documented by: Clotrimazole (Clotrimazole 1 % Cream 15 Gm Tube) 1 appl TOPICAL BID [facility]; Protocol Last Admin: 12/03/21 09:18 Dose: 1 appl Documented by: [place] Butter/Zinc Oxide ([place] Butter/Zinc Oxide Supp.Rect) 1 supp [place] BEDTIME PRN PRN Reason: hemorrhoid pain Last Admin: 09/13/21 21:15 Dose: 1 supp Documented by: Cyanocobalamin (Cyanocobalamin (Vitamin B-12) 100 Mcg Tablet) 100 mcg PO DAILY [facility] Last Admin: 12/03/21 09:16 Dose: 100 mcg Documented by: Diclofenac Sodium (Diclofenac Sodium Delayed Rel 50 Mg Tablet.) 50 mg PO BID [facility] Last Admin: 12/03/21 09:16 Dose: 50 mg Documented by: Docusate Sodium (Docusate Sodium 100 Mg Capsule) 100 mg PO BID [facility] Last Admin: 12/03/21 09:17 Dose: 100 mg Documented by: Duloxetine HCl (Duloxetine Hcl 20 Mg Capsule.) 40 mg PO DAILY [facility] Last Admin: 12/03/21 09:15 Dose: 40 mg Documented by: Gabapentin (Gabapentin 400 Mg Capsule) 800 mg PO TID [facility] Last Admin: 12/03/21 15:50 Dose: 800 mg Documented by: Gabapentin (Gabapentin 100 Mg Capsule) 100 mg PO TID PRN PRN Reason: neuropathic pain Last Admin: 09/26/21 17:14 Dose: 100 mg Documented by: Lamotrigine (Lamotrigine 25 Mg Tablet) 50 mg PO BEDTIME [facility] Last Admin: 12/02/21 20:14 Dose: 50 mg Documented by: Levothyroxine Sodium (Levothyroxine Sodium 25 Mcg Tablet) 12.5 mcg PO DAILY@0600 [facility] Last Admin: 12/03/21 06:02 Dose: 12.5 mcg Documented by: Lorazepam (Lorazepam 1 Mg Tablet) 1 mg PO DAILY PRN PRN Reason: anxiety Last Admin: 12/02/21 20:18 Dose: 1 mg Documented by: Multi-Ingred Cream/Lotion/Oil/Oint (Mineral Oil/Petrolatum,White 106 Gm Tube) 1 appl TOPICAL BID [facility]; Protocol Last Admin: 12/03/21 09:18 Dose: 1 appl Documented by: Nicotine (Nicotine 14 Mg Patch.Td24) 14 mg TRANSDERMA DAILY [facility] Last Admin: 12/03/21 11:13 Dose: Not Given Documented by: Nicotine Polacrilex (Nicotine Polacrilex 2 Mg Gum) 4 mg BUCCAL Q1H PRN PRN Reason: Nicotine Cravings Last Admin: 12/03/21 15:54 Dose: 4 mg Documented by: Nf Medication ( Similasan Complete Eye Relief 2 Drop) 2 drop EYE-BOTH BID PRN PRN Reason: eye dryness Last Admin: 12/03/21 15:54 Dose: 2 drop Documented by: Omeprazole (Omeprazole 20 Mg Capsule.Dr) 20 mg PO BID@0630,1630 [facility] Last Admin: 12/03/21 15:50 Dose: 20 mg Documented by: Polyethylene Glycol (Polyethylene Glycol 3350 17 Gm Powd.Pack) 17 gm PO DAILY PRN PRN Reason: Constipation Last Admin: 12/02/21 09:17 Dose: 17 gm Documented by: Psyllium Hydrophilic Mucilloid (Psyllium Seed 3.4 Gm Powd.Pack) 3.4 gm PO DAILY [facility] Last Admin: 12/03/21 09:17 Dose: 3.4 gm Documented by: Quetiapine Fumarate (Quetiapine Fumarate 100 Mg Tablet) 100 mg PO Q6H PRN PRN Reason: anxiety/restlessness Quetiapine Fumarate (Quetiapine Fumarate 100 Mg Tablet) 500 mg PO BEDTIME [facility] Last Admin: 12/02/21 20:14 Dose: 500 mg Documented by: Ropinirole HCl (Ropinirole Hcl 2 Mg Tablet) 2 mg PO DAILY@1900 [facility] Last Admin: 12/02/21 20:15 Dose: 2 mg Documented by: Senna/Docusate Sodium (Sennosides/Docusate Sodium Tablet) 1 tab PO BID [facility] Last Admin: 12/03/21 09:17 Dose: 1 tab Documented by: Simethicone (Simethicone 80 Mg Tab.Chew) 80 mg PO QIDWMHS PRN PRN Reason: bloating Sodium Chloride (Sodium Chloride 0.65 % Nasal 44 Ml Sprbtl) 1 spray NOSTRIL-B Q1H PRN PRN Reason: congestion Last Admin: 12/03/21 15:54 Dose: 1 spray Documented by: Trazodone HCl (Trazodone Hcl 25 Mg Halftab) 75 mg PO BEDTIME PRN PRN Reason: insomnia Last Admin: 12/02/21 20:19 Dose: 75 mg Documented by: Trolamine Salicylate/Aloe Vera (Trolamine Salicylate 10%/Aloe Cream 35.4 Gm) 1 appl TOPICAL QID PRN PRN Reason: leg pain Trolamine Salicylate/Aloe Vera (Trolamine Salicylate 10%/Aloe Cream 35.4 Gm) 1 appl TOPICAL QID PRN PRN Reason: mild-mod pain Last Admin: 11/21/21 16:20 Dose: 1 appl Documented by: Vitamin D (Cholecalciferol (Vitamin D3) 25 Mcg Tablet) 25 mcg PO DAILY [facility] Last Admin: 12/03/21 09:17 Dose: 25 mcg Documented by: Allergies Allergies Allergy/AdvReac Type Severity Reaction Status Date / Time aripiprazole [From Abilify] Allergy Unknown Involuntary Verified 08/19/21 07:20 Spasms chlorpromazine Allergy Unknown Nausea and Verified 08/19/21 07:20 [From Thorazine] Vomiting haloperidol [From Haldol] Allergy Unknown Involuntary Verified 08/19/21 07:20 Spasms olanzapine [From Zyprexa] Allergy Unknown Involuntary Verified 08/19/21 07:20 Spasms paliperidone [From Invega] Allergy Unknown Hallucinati Verified 08/19/21 07:20 ons risperidone Allergy Unknown Involuntary Verified 08/19/21 07:20 Spasms Assessment & Plan Assessment & Plan (1) Schizoaffective disorder, bipolar type: Status: Acute Code(s): F25.0 - Schizoaffective disorder, bipolar type (2) Lumbar radiculopathy: Status: Acute Code(s): M54.16 - Radiculopathy, lumbar region (3) Hip pain, left: Status: Acute Code(s): M25.552 - Pain in left hip Plan 11/05/21: Continue current plan. Support in transition 11/06/2021: Continue current regimen and plans. No changes were made today 11/07/2021: Continue current plans and regimen. No changes were made today 11/08/21: Discontinue a.m. Seroquel 100 mg Increase p.m. Seroquel to 700 mg from 600 mg, consolidating dosages per pt request to improve mgt of daytime sedation. 11/09/21: No changes today Throat culture, COVID-19 testing, throat lozenges prn 11/10/21: R/O CKD sx. Nephrology consultation. Discontinue [place] Lamictal 25 mg hs Encourage fluids Synthroid 12.5 mcg daily 11/11/21: No regime changes today. Continue to monitor 11/12/21: Discontinue atarax, lidocaine Requip, a.m. dose, Lidocaine per pt request Change prn Seroquel to 100 mg po q 6 h prn from 200 mg po q 6h prn Continue to monitor physical symptoms 11/13/21: No medication changes 11/14/21: increase ativan to 1 mg QHS for sleep, anxiety 11/15/21: No medication changes today 11/17/21: Support pt in transition to community. 11/18/21: Continue current plan 11/19/21: Continue current plan 11/20: Increase Cymbalta to 40 mg daily 11/21 start Voltaren 50 mg BID. No change in psychotropics. 11/22/21: Decrease Seroquel by 100 mg daily at HS Increase Lamictal to 50 mg daily CBCD, CMP Support through this process of transition. 11/23/21 Declined labs today. Re-ordered for 11/24. Support through transitional process. 11/24/21 Decrease Seroquel to 500 mg HS Magnesium Citrate x 1 prn constipation Eucerin Cream to feet. 11/25/21 Continue current plan of care Support in transition. 11/26/21 K+ level 11/27 Continue current plan of care Support in transition. 11/27 no changes to current plan 11/28 no changes to current plan 11/29 Continue current plan 11/30/21: Continue current plan. Support in transition. 12/02/21: No changes in current plan. Support in transition. 12/03/21: Continue current plan. I spent minutes with the patient and/or on the patient floor today, greater than?50% of which was spent counseling/coordinating care. Patient educated on: medication risk/benefits, therapeutic strategies and medical condition Informed Consent: understands Reason for contiued inpatient stay Substantial Risk for: inability to function and rapid decompensation
[2021-12-03] MEDS: rOPINIRole HCL 2 MG TABLET PO (19:23)
[2021-12-03 20:04] VITALS: BP 139/83; PULSE 78; RESP 18; TEMP 36.5; O2SAT 95
[2021-12-03] MEDS: QUEtiapine Fumarate 100 MG TABLET 500 MG PO (20:40)
[2021-12-03] MEDS: LORazepam 1 MG TABLET PO (20:41)
[2021-12-03] MEDS: lamoTRIgine 25 MG TABLET 50 MG PO (20:41)
[2021-12-03] MEDS: traZODone HCL 25 MG HALFTAB 75 MG PO (20:41)
[2021-12-04 06:00] VITALS: BP 118/77; PULSE 88; RESP 17; TEMP 36.1; O2SAT 97
[2021-12-04] MEDS: Levothyroxine Sodium 25 MCG TABLET 12.5 MCG PO (06:08)
[2021-12-04] MEDS: Omeprazole 20 MG CAPSULE.DR PO ×2 (06:10→15:39)
[2021-12-04] MEDS: Cyanocobalamin (Vitamin B-12) 100 MCG TABLET PO (09:15)
[2021-12-04] MEDS: amLODIPine Besylate 2.5 MG TABLET PO (09:15)
[2021-12-04] MEDS: DULoxetine HCl 20 MG CAPSULE.DR 40 MG PO (09:15)
[2021-12-04] MEDS: Diclofenac Sodium Delayed Rel 50 MG TABLET.DR PO ×2 (09:15→21:09)
[2021-12-04] MEDS: Docusate Sodium 100 MG CAPSULE PO ×2 (09:16→21:09)
[2021-12-04] MEDS: Sennosides/Docusate Sodium TABLET 1 TAB PO ×2 (09:16→21:09)
[2021-12-04] MEDS: Cholecalciferol (Vitamin D3) 25 MCG TABLET PO (09:16)
[2021-12-04] MEDS: Clotrimazole 1 % Cream 15 GM TUBE 1 APPL TOPICAL (09:16)
[2021-12-04] MEDS: Gabapentin 400 MG CAPSULE 800 MG PO ×3 (09:16→21:08)
[2021-12-04] MEDS: Mineral Oil/Petrolatum,White 106 GM Tube 1 APPL TOPICAL (09:17)
[2021-12-04] MEDS: polyethylene glycoL 3350 17 GM POWD.PACK PO (09:28)
[2021-12-04] MEDS: Nicotine Polacrilex 2 MG GUM 4 MG BUCCAL ×3 (09:28→19:33)
[2021-12-04] MEDS: Sodium Chloride 0.65 % Nasal 44 ML SPRBTL 1 SPRAY NOSTRIL-B ×2 (09:30→21:05)
--- NOTE | 2021-12-04 18:30 | P.PNPSI_ITS ---
Subjective Subjective Date of Service: 12/04/21 Reason For Visit: Bipolar, Schizoaffective Interim History: Pt visable in milieu, reading in her room, interacting with peers. Discussed hip pain and constipation. She has had a change in her thinking regarding evaluation for hip surgery and will pursue this after discharge. Using magnesium citrate every week for chronic constipation. Discussed bowel regime which she is not interested in at this time. Medication Compliance: Yes Side effects from medications: No Attending Groups: Yes Review of Systems Acute medical concerns: No Medical Review of Systems: unchanged Mental Status Exam Mental Status Exam Patient Appearance: Appropriate Patient Orientation: Person, Place, Time and Situation Level of Consciousness: Alert Patient Behavior: Talkative and Good Eye Contact Mood Description: Anxious and Apprehensive Affect Description: Anxious, Flat and Apprehensive Patient Cognition Impaired: No Ability to Follow Directions: Good Speech Pattern: Spontaneous Speech Hallucinations: Auditory (baseline) Delusions: Not Present Perceptual Disturbances: Depersonalization and Derealization Thought Process: Goal Oriented Thought Content: positive for [place] and positive for Circumstantial Depressive Symptoms: Increased Anxiety, Increased Fatigue and Loss of Energy Judgement: Good Diagnostics Vital Signs (24Hr): Vital Signs - 24 hr 12/03/21 20:04 12/04/21 06:00 Temperature 97.7 F 97.0 F Pulse Rate 78 88 Respiratory Rate 18 17 Blood Pressure 139/83 118/77 Pulse Oximetry 95 97 BMI result Body Mass Index 38.0 Labs Results: 11/24/21 08:08 11/24/21 08:08 Imaging Radiology Impressions: ITS Impressions Abdomen Ultrasound 09/01/21 08:59 IMPRESSION: Slightly echogenic liver. Limited evaluation of the gallbladder as the patient has recently eaten. No gallstone seen. Limited visualization of the pancreas. Hip X-Ray 09/16/21 14:47 IMPRESSION: Moderate to severe left hip arthritis. Medications Medications Current Medications Acetaminophen (Acetaminophen 325 Mg Tablet) 975 mg PO Q6H PRN PRN Reason: Headache/Pain Mild Scale (1-3) Last Admin: 12/03/21 12:43 Dose: 975 mg Documented by: Amlodipine Besylate (Amlodipine Besylate 2.5 Mg Tablet) 2.5 mg PO DAILY [facility]; Protocol Last Admin: 12/04/21 09:15 Dose: 2.5 mg Documented by: Artificial Tears (Artificial Tears 15 Ml Drops) 2 drop EYE-BOTH Q4H PRN PRN Reason: Dry Eyes Last Admin: 11/19/21 08:54 Dose: 2 drop Documented by: Artificial Tears (Artificial Tears 15 Ml Drops) 2 drop EYE-BOTH Q4H PRN PRN Reason: dry eyes Benzocaine (Benzocaine 20 % Oral Gel 9 Gm Tube) 1 appl MUCOUS MEM QID PRN; Protocol PRN Reason: Mouth Sore Pain Last Admin: 08/31/21 03:05 Dose: 1 appl Documented by: Benzocaine (Throat Lozenge, Medicated Lozenge) 1 lozenge MUCOUS MEM Q2H PRN PRN Reason: Sore Throat Calcium Carbonate (Calcium Carbonate 500 Mg Tablet) 500 mg PO DAILY [facility] Last Admin: 12/04/21 09:15 Dose: 500 mg Documented by: Calcium Carbonate (Calcium Carbonate 750 Mg Tab.Chew) 750 mg PO Q4H PRN PRN Reason: Heartburn Last Admin: 12/02/21 20:19 Dose: 750 mg Documented by: Capsaicin (Capsaicin 0.025% Cream 60 Gm Tube) 1 appl TOPICAL QID PRN; Protocol PRN Reason: leg pain Last Admin: 12/03/21 09:23 Dose: 1 appl Documented by: Clotrimazole (Clotrimazole 1 % Cream 15 Gm Tube) 1 appl TOPICAL BID [facility]; Protocol Last Admin: 12/04/21 09:16 Dose: 1 appl Documented by: [place] Butter/Zinc Oxide ([place] Butter/Zinc Oxide Supp.Rect) 1 supp [place] BEDTIME PRN PRN Reason: hemorrhoid pain Last Admin: 09/13/21 21:15 Dose: 1 supp Documented by: Cyanocobalamin (Cyanocobalamin (Vitamin B-12) 100 Mcg Tablet) 100 mcg PO DAILY [facility] Last Admin: 12/04/21 09:15 Dose: 100 mcg Documented by: Diclofenac Sodium (Diclofenac Sodium Delayed Rel 50 Mg Tablet.) 50 mg PO BID [facility] Last Admin: 12/04/21 09:15 Dose: 50 mg Documented by: Docusate Sodium (Docusate Sodium 100 Mg Capsule) 100 mg PO BID [facility] Last Admin: 12/04/21 09:16 Dose: 100 mg Documented by: Duloxetine HCl (Duloxetine Hcl 20 Mg Capsule.) 40 mg PO DAILY [facility] Last Admin: 12/04/21 09:15 Dose: 40 mg Documented by: Gabapentin (Gabapentin 400 Mg Capsule) 800 mg PO TID [facility] Last Admin: 12/04/21 15:39 Dose: 800 mg Documented by: Gabapentin (Gabapentin 100 Mg Capsule) 100 mg PO TID PRN PRN Reason: neuropathic pain Last Admin: 09/26/21 17:14 Dose: 100 mg Documented by: Lamotrigine (Lamotrigine 25 Mg Tablet) 50 mg PO BEDTIME [facility] Last Admin: 12/03/21 20:41 Dose: 50 mg Documented by: Levothyroxine Sodium (Levothyroxine Sodium 25 Mcg Tablet) 12.5 mcg PO DAILY@0600 [facility] Last Admin: 12/04/21 06:08 Dose: 12.5 mcg Documented by: Lorazepam (Lorazepam 1 Mg Tablet) 1 mg PO DAILY PRN PRN Reason: anxiety Last Admin: 12/03/21 20:41 Dose: 1 mg Documented by: Multi-Ingred Cream/Lotion/Oil/Oint (Mineral Oil/Petrolatum,White 106 Gm Tube) 1 appl TOPICAL BID [facility]; Protocol Last Admin: 12/04/21 09:17 Dose: 1 appl Documented by: Nicotine (Nicotine 14 Mg Patch.Td24) 14 mg TRANSDERMA DAILY [facility] Last Admin: 12/04/21 09:24 Dose: Not Given Documented by: Nicotine Polacrilex (Nicotine Polacrilex 2 Mg Gum) 4 mg BUCCAL Q1H PRN PRN Reason: Nicotine Cravings Last Admin: 12/04/21 15:46 Dose: 4 mg Documented by: Nf Medication ( Similasan Complete Eye Relief 2 Drop) 2 drop EYE-BOTH BID PRN PRN Reason: eye dryness Last Admin: 12/04/21 09:30 Dose: 2 drop Documented by: Omeprazole (Omeprazole 20 Mg Capsule.) 20 mg PO BID@0630,1630 [facility] Last Admin: 12/04/21 15:39 Dose: 20 mg Documented by: Polyethylene Glycol (Polyethylene Glycol 3350 17 Gm Powd.Pack) 17 gm PO DAILY PRN PRN Reason: Constipation Last Admin: 12/04/21 09:28 Dose: 17 gm Documented by: Psyllium Hydrophilic Mucilloid (Psyllium Seed 3.4 Gm Powd.Pack) 3.4 gm PO DAILY [facility] Last Admin: 12/04/21 09:14 Dose: 3.4 gm Documented by: Quetiapine Fumarate (Quetiapine Fumarate 100 Mg Tablet) 100 mg PO Q6H PRN PRN Reason: anxiety/restlessness Quetiapine Fumarate (Quetiapine Fumarate 100 Mg Tablet) 500 mg PO BEDTIME [facility] Last Admin: 12/03/21 20:40 Dose: 500 mg Documented by: Ropinirole HCl (Ropinirole Hcl 2 Mg Tablet) 2 mg PO DAILY@1900 [facility] Last Admin: 12/03/21 19:23 Dose: 2 mg Documented by: Senna/Docusate Sodium (Sennosides/Docusate Sodium Tablet) 1 tab PO BID [facility] Last Admin: 12/04/21 09:16 Dose: 1 tab Documented by: Simethicone (Simethicone 80 Mg Tab.Chew) 80 mg PO QIDWMHS PRN PRN Reason: bloating Sodium Chloride (Sodium Chloride 0.65 % Nasal 44 Ml Sprbtl) 1 spray NOSTRIL-B Q1H PRN PRN Reason: congestion Last Admin: 12/04/21 09:30 Dose: 1 spray Documented by: Trazodone HCl (Trazodone Hcl 25 Mg Halftab) 75 mg PO BEDTIME PRN PRN Reason: insomnia Last Admin: 12/03/21 20:41 Dose: 75 mg Documented by: Trolamine Salicylate/Aloe Vera (Trolamine Salicylate 10%/Aloe Cream 35.4 Gm) 1 appl TOPICAL QID PRN PRN Reason: leg pain Trolamine Salicylate/Aloe Vera (Trolamine Salicylate 10%/Aloe Cream 35.4 Gm) 1 appl TOPICAL QID PRN PRN Reason: mild-mod pain Last Admin: 11/21/21 16:20 Dose: 1 appl Documented by: Vitamin D (Cholecalciferol (Vitamin D3) 25 Mcg Tablet) 25 mcg PO DAILY [facility] Last Admin: 12/04/21 09:16 Dose: 25 mcg Documented by: Allergies Allergies Allergy/AdvReac Type Severity Reaction Status Date / Time aripiprazole [From Abilify] Allergy Unknown Involuntary Verified 08/19/21 07:20 Spasms chlorpromazine Allergy Unknown Nausea and Verified 08/19/21 07:20 [From Thorazine] Vomiting haloperidol [From Haldol] Allergy Unknown Involuntary Verified 08/19/21 07:20 Spasms olanzapine [From Zyprexa] Allergy Unknown Involuntary Verified 08/19/21 07:20 Spasms paliperidone [From Invega] Allergy Unknown Hallucinati Verified 08/19/21 07:20 ons risperidone Allergy Unknown Involuntary Verified 08/19/21 07:20 Spasms Assessment & Plan Assessment & Plan (1) Schizoaffective disorder, bipolar type: Status: Acute Code(s): F25.0 - Schizoaffective disorder, bipolar type (2) Lumbar radiculopathy: Status: Acute Code(s): M54.16 - Radiculopathy, lumbar region (3) Hip pain, left: Status: Acute Code(s): M25.552 - Pain in left hip Plan 11/05/21: Continue current plan. Support in transition 11/06/2021: Continue current regimen and plans. No changes were made today 11/07/2021: Continue current plans and regimen. No changes were made today 11/08/21: Discontinue a.m. Seroquel 100 mg Increase p.m. Seroquel to 700 mg from 600 mg, consolidating dosages per pt request to improve mgt of daytime sedation. 11/09/21: No changes today Throat culture, COVID-19 testing, throat lozenges prn 11/10/21: R/O CKD sx. Nephrology consultation. Discontinue [place] Lamictal 25 mg hs Encourage fluids Synthroid 12.5 mcg daily 11/11/21: No regime changes today. Continue to monitor 11/12/21: Discontinue atarax, lidocaine Requip, a.m. dose, Lidocaine per pt request Change prn Seroquel to 100 mg po q 6 h prn from 200 mg po q 6h prn Continue to monitor physical symptoms 11/13/21: No medication changes 11/14/21: increase ativan to 1 mg QHS for sleep, anxiety 11/15/21: No medication changes today 11/17/21: Support pt in transition to community. 11/18/21: Continue current plan 11/19/21: Continue current plan 11/20: Increase Cymbalta to 40 mg daily 11/21 start Voltaren 50 mg BID. No change in psychotropics. 11/22/21: Decrease Seroquel by 100 mg daily at HS Increase Lamictal to 50 mg daily CBCD, CMP Support through this process of transition. 11/23/21 Declined labs today. Re-ordered for 11/24. Support through transitional process. 11/24/21 Decrease Seroquel to 500 mg HS Magnesium Citrate x 1 prn constipation Eucerin Cream to feet. 11/25/21 Continue current plan of care Support in transition. 11/26/21 K+ level 11/27 Continue current plan of care Support in transition. 11/27 no changes to current plan 11/28 no changes to current plan 11/29 Continue current plan 11/30/21: Continue current plan. Support in transition. 12/02/21: No changes in current plan. Support in transition. 12/03/21: Continue current plan. 12/04/21: Continue current plan. I spent minutes with the patient and/or on the patient floor today, greater than?50% of which was spent counseling/coordinating care. Patient educated on: medication risk/benefits, therapeutic strategies and medical condition Informed Consent: understands Reason for contiued inpatient stay Substantial Risk for: inability to function and rapid decompensation
[2021-12-04 21:05] VITALS: BP 111/67; PULSE 68; RESP 18; TEMP 36.6; O2SAT 96
[2021-12-04] MEDS: Capsaicin 0.025% Cream 60 GM TUBE 1 APPL TOPICAL (21:05)
[2021-12-04] MEDS: rOPINIRole HCL 2 MG TABLET PO (21:06)
[2021-12-04] MEDS: traZODone HCL 25 MG HALFTAB 75 MG PO (21:06)
[2021-12-04] MEDS: Acetaminophen 325 MG TABLET 975 MG PO (21:07)
[2021-12-04] MEDS: QUEtiapine Fumarate 100 MG TABLET 500 MG PO (21:09)
[2021-12-04] MEDS: LORazepam 1 MG TABLET PO (21:09)
[2021-12-04] MEDS: lamoTRIgine 25 MG TABLET 50 MG PO (21:10)
[2021-12-05] MEDS: Levothyroxine Sodium 25 MCG TABLET 12.5 MCG PO (06:08)
[2021-12-05] MEDS: Omeprazole 20 MG CAPSULE.DR PO ×2 (06:10→16:46)
[2021-12-05 08:25] VITALS: BP 91/60; PULSE 63; RESP 16; TEMP 36.6; O2SAT 97
[2021-12-05] MEDS: Nicotine Polacrilex 2 MG GUM 4 MG BUCCAL ×3 (09:26→20:37)
[2021-12-05] MEDS: Gabapentin 400 MG CAPSULE 800 MG PO ×3 (09:27→20:38)
[2021-12-05] MEDS: Cyanocobalamin (Vitamin B-12) 100 MCG TABLET PO (09:28)
[2021-12-05] MEDS: Cholecalciferol (Vitamin D3) 25 MCG TABLET PO (09:28)
[2021-12-05] MEDS: Docusate Sodium 100 MG CAPSULE PO ×2 (09:29→20:37)
[2021-12-05] MEDS: Diclofenac Sodium Delayed Rel 50 MG TABLET.DR PO ×2 (09:29→20:36)
[2021-12-05] MEDS: DULoxetine HCl 20 MG CAPSULE.DR 40 MG PO (09:30)
[2021-12-05] MEDS: Sennosides/Docusate Sodium TABLET 1 TAB PO ×2 (09:30→20:38)
--- NOTE | 2021-12-05 15:35 | P.PNPSI_ITS ---
Subjective Subjective Date of Service: 12/05/21 Reason For Visit: Bipolar, Schizoaffective Interim History: Denies current sx or concerns. Chronic constipation is an issue. She is willing to discuss changes to regime/diet to assist with bowel mgt. including increasing fluid intake. Awaiting placement. Medication Compliance: Yes Side effects from medications: No Attending Groups: Yes Review of Systems Acute medical concerns: No Medical Review of Systems: unchanged Mental Status Exam Mental Status Exam Patient Appearance: Appropriate Patient Orientation: Person, Place, Time and Situation Level of Consciousness: Alert Patient Behavior: Talkative and Good Eye Contact Mood Description: Anxious and Apprehensive Affect Description: Anxious, Flat and Apprehensive Patient Cognition Impaired: No Ability to Follow Directions: Good Speech Pattern: Spontaneous Speech Hallucinations: Auditory (baseline) Delusions: Not Present Perceptual Disturbances: Depersonalization and Derealization Thought Process: Goal Oriented Thought Content: positive for [place] and positive for Circumstantial Depressive Symptoms: Increased Anxiety, Increased Fatigue and Loss of Energy Judgement: Good Diagnostics Vital Signs (24Hr): Vital Signs - 24 hr 12/04/21 21:05 12/05/21 08:25 Temperature 97.9 F 97.8 F Pulse Rate 68 63 Respiratory Rate 18 16 Blood Pressure 111/67 91/60 Pulse Oximetry 96 97 BMI result Body Mass Index 38.0 Labs Results: 11/24/21 08:08 11/24/21 08:08 Imaging Radiology Impressions: ITS Impressions Abdomen Ultrasound 09/01/21 08:59 IMPRESSION: Slightly echogenic liver. Limited evaluation of the gallbladder as the patient has recently eaten. No gallstone seen. Limited visualization of the pancreas. Hip X-Ray 09/16/21 14:47 IMPRESSION: Moderate to severe left hip arthritis. Medications Medications Current Medications Acetaminophen (Acetaminophen 325 Mg Tablet) 975 mg PO Q6H PRN PRN Reason: Headache/Pain Mild Scale (1-3) Last Admin: 12/04/21 21:07 Dose: 975 mg Documented by: Amlodipine Besylate (Amlodipine Besylate 2.5 Mg Tablet) 2.5 mg PO DAILY [facility]; Protocol Last Admin: 12/05/21 09:34 Dose: Not Given Documented by: Artificial Tears (Artificial Tears 15 Ml Drops) 2 drop EYE-BOTH Q4H PRN PRN Reason: Dry Eyes Last Admin: 11/19/21 08:54 Dose: 2 drop Documented by: Artificial Tears (Artificial Tears 15 Ml Drops) 2 drop EYE-BOTH Q4H PRN PRN Reason: dry eyes Benzocaine (Benzocaine 20 % Oral Gel 9 Gm Tube) 1 appl MUCOUS MEM QID PRN; Protocol PRN Reason: Mouth Sore Pain Last Admin: 08/31/21 03:05 Dose: 1 appl Documented by: Benzocaine (Throat Lozenge, Medicated Lozenge) 1 lozenge MUCOUS MEM Q2H PRN PRN Reason: Sore Throat Calcium Carbonate (Calcium Carbonate 500 Mg Tablet) 500 mg PO DAILY [facility] Last Admin: 12/05/21 09:30 Dose: 500 mg Documented by: Calcium Carbonate (Calcium Carbonate 750 Mg Tab.Chew) 750 mg PO Q4H PRN PRN Reason: Heartburn Last Admin: 12/02/21 20:19 Dose: 750 mg Documented by: Capsaicin (Capsaicin 0.025% Cream 60 Gm Tube) 1 appl TOPICAL QID PRN; Protocol PRN Reason: leg pain Last Admin: 12/04/21 21:05 Dose: 1 appl Documented by: Clotrimazole (Clotrimazole 1 % Cream 15 Gm Tube) 1 appl TOPICAL BID [facility]; Protocol Last Admin: 12/05/21 10:23 Dose: Not Given Documented by: [place] Butter/Zinc Oxide ([place] Butter/Zinc Oxide Supp.Rect) 1 supp [place] BEDTIME P RN PRN Reason: hemorrhoid pain Last Admin: 09/13/21 21:15 Dose: 1 supp Documented by: Cyanocobalamin (Cyanocobalamin (Vitamin B-12) 100 Mcg Tablet) 100 mcg PO DAILY [facility] Last Admin: 12/05/21 09:28 Dose: 100 mcg Documented by: Dibucaine (Dibucaine 1 % Oint 28 Gm Tube) 1 appl TOPICAL QID PRN; Protocol PRN Reason: Hemorrhoids Diclofenac Sodium (Diclofenac Sodium Delayed Rel 50 Mg Tablet.) 50 mg PO BID [facility] Last Admin: 12/05/21 09:29 Dose: 50 mg Documented by: Docusate Sodium (Docusate Sodium 100 Mg Capsule) 100 mg PO BID [facility] Last Admin: 12/05/21 09:29 Dose: 100 mg Documented by: Duloxetine HCl (Duloxetine Hcl 20 Mg Capsule.) 40 mg PO DAILY [facility] Last Admin: 12/05/21 09:30 Dose: 40 mg Documented by: Gabapentin (Gabapentin 400 Mg Capsule) 800 mg PO TID [facility] Last Admin: 12/05/21 15:11 Dose: 800 mg Documented by: Gabapentin (Gabapentin 100 Mg Capsule) 100 mg PO TID PRN PRN Reason: neuropathic pain Last Admin: 09/26/21 17:14 Dose: 100 mg Documented by: Lamotrigine (Lamotrigine 25 Mg Tablet) 50 mg PO BEDTIME [facility] Last Admin: 12/04/21 21:10 Dose: 50 mg Documented by: Levothyroxine Sodium (Levothyroxine Sodium 25 Mcg Tablet) 12.5 mcg PO DAILY@0600 [facility] Last Admin: 12/05/21 06:08 Dose: 12.5 mcg Documented by: Lorazepam (Lorazepam 1 Mg Tablet) 1 mg PO DAILY PRN PRN Reason: anxiety Last Admin: 12/04/21 21:09 Dose: 1 mg Documented by: Multi-Ingred Cream/Lotion/Oil/Oint (Mineral Oil/Petrolatum,White 106 Gm Tube) 1 appl TOPICAL BID [facility]; Protocol Last Admin: 12/05/21 10:23 Dose: Not Given Documented by: Nicotine (Nicotine 14 Mg Patch.Td24) 14 mg TRANSDERMA DAILY [facility] Last Admin: 12/05/21 09:35 Dose: Not Given Documented by: Nicotine Polacrilex (Nicotine Polacrilex 2 Mg Gum) 4 mg BUCCAL Q1H PRN PRN Reason: Nicotine Cravings Last Admin: 12/05/21 09:26 Dose: 4 mg Documented by: Nf Medication ( Similasan Complete Eye Relief 2 Drop) 2 drop EYE-BOTH BID PRN PRN Reason: eye dryness Last Admin: 12/04/21 21:05 Dose: 2 drop Documented by: Omeprazole (Omeprazole 20 Mg Capsule.Dr) 20 mg PO BID@0630,1630 [facility] Last Admin: 12/05/21 06:10 Dose: 20 mg Documented by: Polyethylene Glycol (Polyethylene Glycol 3350 17 Gm Powd.Pack) 17 gm PO DAILY PRN PRN Reason: Constipation Last Admin: 12/04/21 09:28 Dose: 17 gm Documented by: Psyllium Hydrophilic Mucilloid (Psyllium Seed 3.4 Gm Powd.Pack) 3.4 gm PO DAILY [facility] Last Admin: 12/05/21 09:27 Dose: 3.4 gm Documented by: Quetiapine Fumarate (Quetiapine Fumarate 100 Mg Tablet) 100 mg PO Q6H PRN PRN Reason: anxiety/restlessness Quetiapine Fumarate (Quetiapine Fumarate 100 Mg Tablet) 500 mg PO BEDTIME [facility] Last Admin: 12/04/21 21:09 Dose: 500 mg Documented by: Ropinirole HCl (Ropinirole Hcl 2 Mg Tablet) 2 mg PO DAILY@1900 [facility] Last Admin: 12/04/21 21:06 Dose: 2 mg Documented by: Senna/Docusate Sodium (Sennosides/Docusate Sodium Tablet) 1 tab PO BID [facility] Last Admin: 12/05/21 09:30 Dose: 1 tab Documented by: Simethicone (Simethicone 80 Mg Tab.Chew) 80 mg PO QIDWMHS PRN PRN Reason: bloating Sodium Chloride (Sodium Chloride 0.65 % Nasal 44 Ml Sprbtl) 1 spray NOSTRIL-B Q1H PRN PRN Reason: congestion Last Admin: 12/04/21 21:05 Dose: 1 spray Documented by: Trazodone HCl (Trazodone Hcl 25 Mg Halftab) 75 mg PO BEDTIME PRN PRN Reason: insomnia Last Admin: 12/04/21 21:06 Dose: 75 mg Documented by: Trolamine Salicylate/Aloe Vera (Trolamine Salicylate 10%/Aloe Cream 35.4 Gm) 1 appl TOPICAL QID PRN PRN Reason: leg pain Trolamine Salicylate/Aloe Vera (Trolamine Salicylate 10%/Aloe Cream 35.4 Gm) 1 appl TOPICAL QID PRN PRN Reason: mild-mod pain Last Admin: 11/21/21 16:20 Dose: 1 appl Documented by: Vitamin D (Cholecalciferol (Vitamin D3) 25 Mcg Tablet) 25 mcg PO DAILY [facility] Last Admin: 12/05/21 09:28 Dose: 25 mcg Documented by: Allergies Allergies Allergy/AdvReac Type Severity Reaction Status Date / Time aripiprazole [From Abilify] Allergy Unknown Involuntary Verified 08/19/21 07:20 Spasms chlorpromazine Allergy Unknown Nausea and Verified 08/19/21 07:20 [From Thorazine] Vomiting haloperidol [From Haldol] Allergy Unknown Involuntary Verified 08/19/21 07:20 Spasms olanzapine [From Zyprexa] Allergy Unknown Involuntary Verified 08/19/21 07:20 Spasms paliperidone [From Invega] Allergy Unknown Hallucinati Verified 08/19/21 07:20 ons risperidone Allergy Unknown Involuntary Verified 08/19/21 07:20 Spasms Assessment & Plan Assessment & Plan (1) Schizoaffective disorder, bipolar type: Status: Acute Code(s): F25.0 - Schizoaffective disorder, bipolar type (2) Lumbar radiculopathy: Status: Acute Code(s): M54.16 - Radiculopathy, lumbar region (3) Hip pain, left: Status: Acute Code(s): M25.552 - Pain in left hip Plan 11/05/21: Continue current plan. Support in transition 11/06/2021: Continue current regimen and plans. No changes were made today 11/07/2021: Continue current plans and regimen. No changes were made today 11/08/21: Discontinue a.m. Seroquel 100 mg Increase p.m. Seroquel to 700 mg from 600 mg, consolidating dosa ges per pt request to improve mgt of daytime sedation. 11/09/21: No changes today Throat culture, COVID-19 testing, throat lozenges prn 11/10/21: R/O CKD sx. Nephrology consultation. Discontinue [place] Lamictal 25 mg hs Encourage fluids Synthroid 12.5 mcg daily 11/11/21: No regime changes today. Continue to monitor 11/12/21: Discontinue atarax, lidocaine Requip, a.m. dose, Lidocaine per pt request Change prn Seroquel to 100 mg po q 6 h prn from 200 mg po q 6h prn Continue to monitor physical symptoms 11/13/21: No medication changes 11/14/21: increase ativan to 1 mg QHS for sleep, anxiety 11/15/21: No medication changes today 11/17/21: Support pt in transition to community. 11/18/21: Continue current plan 11/19/21: Continue current plan 11/20: Increase Cymbalta to 40 mg daily 11/21 start Voltaren 50 mg BID. No change in psychotropics. 11/22/21: Decrease Seroquel by 100 mg daily at HS Increase Lamictal to 50 mg daily CBCD, CMP Support through this process of transition. 11/23/21 Declined labs today. Re-ordered for 11/24. Support through transitional process. 11/24/21 Decrease Seroquel to 500 mg HS Magnesium Citrate x 1 prn constipation Eucerin Cream to feet. 11/25/21 Continue current plan of care Support in transition. 11/26/21 K+ level 11/27 Continue current plan of care Support in transition. 11/27 no changes to current plan 11/28 no changes to current plan 11/29 Continue current plan 11/30/21: Continue current plan. Support in transition. 12/02/21: No changes in current plan. Support in transition. 12/03/21: Continue current plan. 12/04/21: Continue current plan. 12/05/21: Continue current plan. I spent minutes with the patient and/or on the patient floor today, greater than?50% of which was spent counseling/coordinating care. Patient educated on: therapeutic strategies Informed Consent: understands Reason for contiued inpatient stay Substantial Risk for: inability to function and rapid decompensation
[2021-12-05 18:00] VITALS: BP 123/78; PULSE 82; RESP 18; TEMP 37.1
[2021-12-05] MEDS: rOPINIRole HCL 2 MG TABLET PO (18:41)
[2021-12-05] MEDS: QUEtiapine Fumarate 100 MG TABLET 500 MG PO (20:35)
[2021-12-05] MEDS: traZODone HCL 25 MG HALFTAB 75 MG PO (20:36)
[2021-12-05] MEDS: LORazepam 1 MG TABLET PO (20:36)
[2021-12-05] MEDS: lamoTRIgine 25 MG TABLET 50 MG PO (20:37)
[2021-12-06] MEDS: Levothyroxine Sodium 25 MCG TABLET 12.5 MCG PO ×2 (06:33→09:34)
[2021-12-06] MEDS: Omeprazole 20 MG CAPSULE.DR PO ×2 (06:35→15:32)
[2021-12-06 08:00] VITALS: BP 132/63; PULSE 74; TEMP 36.2; O2SAT 95
[2021-12-06] MEDS: Docusate Sodium 100 MG CAPSULE PO ×2 (09:32→20:25)
[2021-12-06] MEDS: Diclofenac Sodium Delayed Rel 50 MG TABLET.DR PO ×2 (09:32→20:25)
[2021-12-06] MEDS: Cholecalciferol (Vitamin D3) 25 MCG TABLET PO (09:33)
[2021-12-06] MEDS: Gabapentin 400 MG CAPSULE 800 MG PO ×3 (09:33→20:25)
[2021-12-06] MEDS: Nicotine Polacrilex 2 MG GUM 4 MG BUCCAL ×3 (09:33→20:46)
[2021-12-06] MEDS: DULoxetine HCl 20 MG CAPSULE.DR 40 MG PO (09:33)
[2021-12-06] MEDS: Cyanocobalamin (Vitamin B-12) 100 MCG TABLET PO (09:33)
[2021-12-06] MEDS: Sennosides/Docusate Sodium TABLET 1 TAB PO ×2 (09:34→20:26)
[2021-12-06] MEDS: amLODIPine Besylate 2.5 MG TABLET PO (09:34)
[2021-12-06] MEDS: Mineral Oil/Petrolatum,White 106 GM Tube 1 APPL TOPICAL (10:01)
[2021-12-06] MEDS: polyethylene glycoL 3350 17 GM POWD.PACK PO (10:02)
[2021-12-06] MEDS: Sodium Chloride 0.65 % Nasal 44 ML SPRBTL 1 SPRAY NOSTRIL-B ×2 (10:03→20:46)
[2021-12-06] MEDS: Capsaicin 0.025% Cream 60 GM TUBE 1 APPL TOPICAL ×2 (10:03→20:46)
--- NOTE | 2021-12-06 19:27 | P.PNPSI_ITS ---
Subjective Subjective Date of Service: 12/06/21 Reason For Visit: Bipolar, Schizoaffective Subjective Notes: Conditional Voluntary Interim History: Blanca reports no new issues or concerns. She discussed the previous landlord and his making a charge against her of animal cruelty. She discussed her thoughts/plans regarding how to approach this. Medication Compliance: Yes Side effects from medications: No Attending Groups: Intermittent Review of Systems Acute medical concerns: No Medical Review of Systems: unchanged Mental Status Exam Mental Status Exam Patient Appearance: Appropriate Patient Orientation: Person, Place, Time and Situation Level of Consciousness: Alert Patient Behavior: Talkative and Good Eye Contact Mood Description: Anxious and Apprehensive Affect Description: Anxious, Flat and Apprehensive Patient Cognition Impaired: No Ability to Follow Directions: Good Speech Pattern: Spontaneous Speech Hallucinations: Auditory (baseline) Delusions: Not Present Perceptual Disturbances: Depersonalization and Derealization Thought Process: Goal Oriented Thought Content: positive for [place] and positive for Circumstantial Depressive Symptoms: Increased Anxiety, Increased Fatigue and Loss of Energy Judgement: Good Diagnostics Vital Signs (24Hr): Vital Signs - 24 hr 12/06/21 08:00 Temperature 97.1 F Pulse Rate 74 Blood Pressure 132/63 Pulse Oximetry 95 BMI result Body Mass Index 38.0 Labs Results: 11/24/21 08:08 11/24/21 08:08 Imaging Radiology Impressions: ITS Impressions Abdomen Ultrasound 09/01/21 08:59 IMPRESSION: Slightly echogenic liver. Limited evaluation of the gallbladder as the patient has recently eaten. No gallstone seen. Limited visualization of the pancreas. Hip X-Ray 09/16/21 14:47 IMPRESSION: Moderate to severe left hip arthritis. Medications Medications Current Medications Acetaminophen (Acetaminophen 325 Mg Tablet) 975 mg PO Q6H PRN PRN Reason: Headache/Pain Mild Scale (1-3) Last Admin: 12/04/21 21:07 Dose: 975 mg Documented by: Amlodipine Besylate (Amlodipine Besylate 2.5 Mg Tablet) 2.5 mg PO DAILY [facility]; Protocol Last Admin: 12/06/21 09:34 Dose: 2.5 mg Documented by: Artificial Tears (Artificial Tears 15 Ml Drops) 2 drop EYE-BOTH Q4H PRN PRN Reason: Dry Eyes Last Admin: 11/19/21 08:54 Dose: 2 drop Documented by: Artificial Tears (Artificial Tears 15 Ml Drops) 2 drop EYE-BOTH Q4H PRN PRN Reason: dry eyes Benzocaine (Benzocaine 20 % Oral Gel 9 Gm Tube) 1 appl MUCOUS MEM QID PRN; Protocol PRN Reason: Mouth Sore Pain Last Admin: 08/31/21 03:05 Dose: 1 appl Documented by: Benzocaine (Throat Lozenge, Medicated Lozenge) 1 lozenge MUCOUS MEM Q2H PRN PRN Reason: Sore Throat Calcium Carbonate (Calcium Carbonate 500 Mg Tablet) 500 mg PO DAILY [facility] Last Admin: 12/06/21 09:33 Dose: 500 mg Documented by: Calcium Carbonate (Calcium Carbonate 750 Mg Tab.Chew) 750 mg PO Q4H PRN PRN Reason: Heartburn Last Admin: 12/02/21 20:19 Dose: 750 mg Documented by: Capsaicin (Capsaicin 0.025% Cream 60 Gm Tube) 1 appl TOPICAL QID PRN; Protocol PRN Reason: leg pain Last Admin: 12/06/21 10:03 Dose: 1 appl Documented by: Clotrimazole (Clotrimazole 1 % Cream 15 Gm Tube) 1 appl TOPICAL BID [facility]; Protocol Last Admin: 12/06/21 10:07 Dose: Not Given Documented by: [place] Butter/Zinc Oxide ([place] Butter/Zinc Oxide Supp.Rect) 1 supp [place] BEDTIME PRN PRN Reason: hemorrhoid pain Last Admin: 09/13/21 21:15 Dose: 1 supp Documented by: Cyanocobalamin (Cyanocobalamin (Vitamin B-12) 100 Mcg Tablet) 100 mcg PO DAILY [facility] Last Admin: 12/06/21 09:33 Dose: 100 mcg Documented by: Dibucaine (Dibucaine 1 % Oint 28 Gm Tube) 1 appl TOPICAL QID PRN; Protocol PRN Reason: Hemorrhoids Diclofenac Sodium (Diclofenac Sodium Delayed Rel 50 Mg Tablet.) 50 mg PO BID [facility] Last Admin: 12/06/21 09:32 Dose: 50 mg Documented by: Docusate Sodium (Docusate Sodium 100 Mg Capsule) 100 mg PO BID [facility] Last Admin: 12/06/21 09:32 Dose: 100 mg Documented by: Duloxetine HCl (Duloxetine Hcl 20 Mg Capsule.) 40 mg PO DAILY [facility] Last Admin: 12/06/21 09:33 Dose: 40 mg Documented by: Gabapentin (Gabapentin 400 Mg Capsule) 800 mg PO TID [facility] Last Admin: 12/06/21 15:32 Dose: 800 mg Documented by: Gabapentin (Gabapentin 100 Mg Capsule) 100 mg PO TID PRN PRN Reason: neuropathic pain Last Admin: 09/26/21 17:14 Dose: 100 mg Documented by: Lamotrigine (Lamotrigine 25 Mg Tablet) 50 mg PO BEDTIME [facility] Last Admin: 12/05/21 20:37 Dose: 50 mg Documented by: Levothyroxine Sodium (Levothyroxine Sodium 25 Mcg Tablet) 12.5 mcg PO D AILY@0600 [facility] Last Admin: 12/06/21 09:34 Dose: 12.5 mcg Documented by: Lorazepam (Lorazepam 1 Mg Tablet) 1 mg PO DAILY PRN PRN Reason: anxiety Last Admin: 12/05/21 20:36 Dose: 1 mg Documented by: Multi-Ingred Cream/Lotion/Oil/Oint (Mineral Oil/Petrolatum,White 106 Gm Tube) 1 appl TOPICAL BID [facility]; Protocol Last Admin: 12/06/21 10:01 Dose: 1 appl Documented by: Nicotine (Nicotine 14 Mg Patch.Td24) 14 mg TRANSDERMA DAILY [facility] Last Admin: 12/06/21 10:07 Dose: Not Given Documented by: Nicotine Polacrilex (Nicotine Polacrilex 2 Mg Gum) 4 mg BUCCAL Q1H PRN PRN Reason: Nicotine Cravings Last Admin: 12/06/21 15:32 Dose: 4 mg Documented by: Nf Medication ( Similasan Complete Eye Relief 2 Drop) 2 drop EYE-BOTH BID PRN PRN Reason: eye dryness Last Admin: 12/06/21 09:35 Dose: 2 drop Documented by: Omeprazole (Omeprazole 20 Mg Capsule.Dr) 20 mg PO BID@0630,1630 [facility] Last Admin: 12/06/21 15:32 Dose: 20 mg Documented by: Polyethylene Glycol (Polyethylene Glycol 3350 17 Gm Powd.Pack) 17 gm PO DAILY P RN PRN Reason: Constipation Last Admin: 12/06/21 10:02 Dose: 17 gm Documented by: Psyllium Hydrophilic Mucilloid (Psyllium Seed 3.4 Gm Powd.Pack) 3.4 gm PO DAILY [facility] Last Admin: 12/06/21 09:32 Dose: 3.4 gm Documented by: Quetiapine Fumarate (Quetiapine Fumarate 100 Mg Tablet) 100 mg PO Q6H PRN PRN Reason: anxiety/restlessness Quetiapine Fumarate (Quetiapine Fumarate 100 Mg Tablet) 500 mg PO BEDTIME [facility] Last Admin: 12/05/21 20:35 Dose: 500 mg Documented by: Ropinirole HCl (Ropinirole Hcl 2 Mg Tablet) 2 mg PO DAILY@1900 [facility] Last Admin: 12/05/21 18:41 Dose: 2 mg Documented by: Senna/Docusate Sodium (Sennosides/Docusate Sodium Tablet) 1 tab PO BID [facility] Last Admin: 12/06/21 09:34 Dose: 1 tab Documented by: Simethicone (Simethicone 80 Mg Tab.Chew) 80 mg PO QIDWMHS PRN PRN Reason: bloating Sodium Chloride (Sodium Chloride 0.65 % Nasal 44 Ml Sprbtl) 1 spray NOSTRIL-B Q1H PRN PRN Reason: congestion Last Admin: 12/06/21 10:03 Dose: 1 spray Documented by: Trazodone HCl (Trazodone Hcl 25 Mg Halftab) 75 mg PO BEDTIME PRN PRN Reason: insomnia Last Admin: 12/05/21 20:36 Dose: 75 mg Documented by: Trolamine Salicylate/Aloe Vera (Trolamine Salicylate 10%/Aloe Cream 35.4 Gm) 1 appl TOPICAL QID PRN PRN Reason: leg pain Trolamine Salicylate/Aloe Vera (Trolamine Salicylate 10%/Aloe Cream 35.4 Gm) 1 appl TOPICAL QID PRN PRN Reason: mild-mod pain Last Admin: 11/21/21 16:20 Dose: 1 appl Documented by: Vitamin D (Cholecalciferol (Vitamin D3) 25 Mcg Tablet) 25 mcg PO DAILY [facility] Last Admin: 12/06/21 09:33 Dose: 25 mcg Documented by: Allergies Allergies Allergy/AdvReac Type Severity Reaction Status Date / Time aripiprazole [From Abilify] Allergy Unknown Involuntary Verified 08/19/21 07:20 Spasms chlorpromazine Allergy Unknown Nausea and Verified 08/19/21 07:20 [From Thorazine] Vomiting haloperidol [From Haldol] Allergy Unknown Involuntary Verified 08/19/21 07:20 Spasms olanzapine [From Zyprexa] Allergy Unknown Involuntary Verified 08/19/21 07:20 Spasms paliperidone [From Invega] Allergy Unknown Hallucinati Verified 08/19/21 07:20 ons risperidone Allergy Unknown Involuntary Verified 08/19/21 07:20 Spasms Assessment & Plan Assessment & Plan (1) Schizoaffective disorder, bipolar type: Status: Acute Code(s): F25.0 - Schizoaffective disorder, bipolar type (2) Lumbar radiculopathy: Status: Acute Code(s): M54.16 - Radiculopathy, lumbar region (3) Hip pain, left: Status: Acute Code(s): M25.552 - Pain in left hip Plan 11/05/21: Continue current plan. Support in transition 11/06/2021: Continue current regimen and plans. No changes were made today 11/07/2021: Continue current plans and regimen. No changes were made today 11/08/21: Discontinue a.m. Seroquel 100 mg Increase p.m. Seroquel to 700 mg from 600 mg, consolidating dosages per pt request to improve mgt of daytime sedation. 11/09/21: No changes today Throat culture, COVID-19 testing, throat lozenges prn 11/10/21: R/O CKD sx. Nephrology consultation. Discontinue [place] Lamictal 25 mg hs Encourage fluids Synthroid 12.5 mcg daily 11/11/21: No regime changes today. Continue to monitor 11/12/21: Discontinue atarax, lidocaine Requip, a.m. dose, Lidocaine per pt request Change prn Seroquel to 100 mg po q 6 h prn from 200 mg po q 6h prn Continue to monitor physical symptoms 11/13/21: No medication changes 11/14/21: increase ativan to 1 mg QHS for sleep, anxiety 11/15/21: No medication changes today 11/17/21: Support pt in transition to community. 11/18/21: Continue current plan 11/19/21: Continue current plan 11/20: Increase Cymbalta to 40 mg daily 11/21 start Voltaren 50 mg BID. No change in psychotropics. 11/22/21: Decrease Seroquel by 100 mg daily at HS Increase Lamictal to 50 mg daily CBCD, CMP Support through this process of transition. 11/23/21 Declined labs today. Re-ordered for 11/24. Support through transitional process. 11/24/21 Decrease Seroquel to 500 mg HS Magnesium Citrate x 1 prn constipation Eucerin Cream to feet. 11/25/21 Continue current plan of care Support in transition. 11/26/21 K+ level 11/27 Continue current plan of care Support in transition. 11/27 no changes to current plan 11/28 no changes to current plan 11/29 Continue current plan 11/30/21: Continue current plan. Support in transition. 12/02/21: No changes in current plan. Support in transition. 12/03/21: Continue current plan. 12/04/21: Continue current plan. 12/05/21: Continue current plan. 12/06/21: Continue current plan. I spent minutes with the patient and/or on the patient floor today, greater than?50% of which was spent counseling/coordinating care. Patient educated on: therapeutic strategies and other Informed Consent: understands Reason for contiued inpatient stay Substantial Risk for: inability to function and rapid decompensation
[2021-12-06 20:00] VITALS: BP 126/69; PULSE 66; TEMP 36.5; O2SAT 97
[2021-12-06] MEDS: QUEtiapine Fumarate 100 MG TABLET 500 MG PO (20:24)
[2021-12-06] MEDS: rOPINIRole HCL 2 MG TABLET PO (20:25)
[2021-12-06] MEDS: lamoTRIgine 25 MG TABLET 50 MG PO (20:25)
[2021-12-06] MEDS: traZODone HCL 25 MG HALFTAB 75 MG PO (20:47)
[2021-12-06] MEDS: LORazepam 1 MG TABLET PO (20:47)
[2021-12-07] MEDS: Levothyroxine Sodium 25 MCG TABLET 12.5 MCG PO (06:39)
[2021-12-07] MEDS: Omeprazole 20 MG CAPSULE.DR PO ×2 (06:40→16:32)
[2021-12-07] MEDS: Sodium Chloride 0.65 % Nasal 44 ML SPRBTL 1 SPRAY NOSTRIL-B (09:43)
[2021-12-07] MEDS: Nicotine Polacrilex 2 MG GUM 4 MG BUCCAL ×4 (09:43→20:37)
[2021-12-07] MEDS: Capsaicin 0.025% Cream 60 GM TUBE 1 APPL TOPICAL (09:44)
[2021-12-07] MEDS: polyethylene glycoL 3350 17 GM POWD.PACK PO (09:44)
[2021-12-07] MEDS: Diclofenac Sodium Delayed Rel 50 MG TABLET.DR PO ×2 (09:45→20:36)
[2021-12-07] MEDS: Cholecalciferol (Vitamin D3) 25 MCG TABLET PO (09:45)
[2021-12-07] MEDS: DULoxetine HCl 20 MG CAPSULE.DR 40 MG PO (09:45)
[2021-12-07] MEDS: Sennosides/Docusate Sodium TABLET 1 TAB PO ×2 (09:45→20:37)
[2021-12-07] MEDS: Gabapentin 400 MG CAPSULE 800 MG PO ×3 (09:45→20:34)
[2021-12-07] MEDS: amLODIPine Besylate 2.5 MG TABLET PO (09:46)
[2021-12-07] MEDS: Docusate Sodium 100 MG CAPSULE PO ×2 (09:46→20:37)
[2021-12-07] MEDS: Cyanocobalamin (Vitamin B-12) 100 MCG TABLET PO (09:46)
[2021-12-07 09:54] VITALS: BP 127/72; PULSE 81; RESP 16; TEMP 36; O2SAT 97
--- NOTE | 2021-12-07 17:23 | HO.PSYCHPN ---
Subjective Subjective Date of Service: 12/07/21 Reason For Visit: Bipolar, Schizoaffective Subjective Notes: Conditional Voluntary Healthcare Proxy: No Guardianship: No Medical Problems Affecting Mental Status: No Interim History: Reports UTI sx. Agreed to culture. Discussed the need to increase fluids. Blanca reports difficulty with this as she prefers only coffee. Expressed her frustration with [facility] and their treatment of her. Expressed frustration with her previous placement-feeling set up in an environment which she feels was unsafe, then legally charged when she was manic and psychotic. Feeling like she had been taken advantage of when ill. Medication Compliance: Yes Side effects from medications: No Attending Groups: Intermittent Review of Systems Acute medical concerns: No Medical Review of Systems: unchanged Review of Systems Genitourinary: Reports dysuria Psychiatric: Reports no additional psychiatric complaints Mental Status Exam Mental Status Exam Patient Appearance: Appropriate Patient Orientation: Person, Place, Time and Situation Level of Consciousness: Alert Patient Behavior: Talkative and Good Eye Contact Mood Description: Anxious and Apprehensive Affect Description: Anxious, Flat and Apprehensive Patient Cognition Impaired: No Ability to Follow Directions: Good Speech Pattern: Spontaneous Speech Hallucinations: Auditory (baseline) Delusions: Not Present Perceptual Disturbances: Depersonalization and Derealization Thought Process: Goal Oriented Thought Content: positive for [place] and positive for Circumstantial Depressive Symptoms: Increased Anxiety, Increased Fatigue and Loss of Energy Judgement: Good Diagnostics Vital Signs (24Hr): Vital Signs - 24 hr 12/06/21 20:00 12/07/21 09:54 Temperature 97.7 F 96.8 F Pulse Rate 66 81 Respiratory Rate 16 Blood Pressure 126/69 127/72 Pulse Oximetry 97 97 BMI result Body Mass Index 38.0 Labs Results: 11/24/21 08:08 11/24/21 08:08 Imaging Radiology Impressions: ITS Impressions Abdomen Ultrasound 09/01/21 08:59 IMPRESSION: Slightly echogenic liver. Limited evaluation of the gallbladder as the patient has recently eaten. No gallstone seen. Limited visualization of the pancreas. Hip X-Ray 09/16/21 14:47 IMPRESSION: Moderate to severe left hip arthritis. Medications Medications Current Medications Acetaminophen (Acetaminophen 325 Mg Tablet) 975 mg PO Q6H PRN PRN Reason: Headache/Pain Mild Scale (1-3) Last Admin: 12/04/21 21:07 Dose: 975 mg Documented by: Amlodipine Besylate (Amlodipine Besylate 2.5 Mg Tablet) 2.5 mg PO DAILY [facility]; Protocol Last Admin: 12/07/21 09:46 Dose: 2.5 mg Documented by: Artificial Tears (Artificial Tears 15 Ml Drops) 2 drop EYE-BOTH Q4H PRN PRN Reason: Dry Eyes Last Admin: 11/19/21 08:54 Dose: 2 drop Documented by: Artificial Tears (Artificial Tears 15 Ml Drops) 2 drop EYE-BOTH Q4H PRN PRN Reason: dry eyes Benzocaine (Benzocaine 20 % Oral Gel 9 Gm Tube) 1 appl MUCOUS MEM QID PRN; Protocol PRN Reason: Mouth Sore Pain Last Admin: 08/31/21 03:05 Dose: 1 appl Documented by: Benzocaine (Throat Lozenge, Medicated Lozenge) 1 lozenge MUCOUS MEM Q2H PRN PRN Reason: Sore Throat Calcium Carbonate (Calcium Carbonate 500 Mg Tablet) 500 mg PO DAILY [facility] Last Admin: 12/07/21 09:46 Dose: 500 mg Documented by: Calcium Carbonate (Calcium Carbonate 750 Mg Tab.Chew) 750 mg PO Q4H PRN PRN Reason: Heartburn Last Admin: 12/02/21 20:19 Dose: 750 mg Documented by: Capsaicin (Capsaicin 0.025% Cream 60 Gm Tube) 1 appl TOPICAL QID PRN; Protocol PRN Reason: leg pain Last Admin: 12/07/21 09:44 Dose: 1 appl Documented by: Clotrimazole (Clotrimazole 1 % Cream 15 Gm Tube) 1 appl TOPICAL BID [facility]; Protocol Last Admin: 12/07/21 09:52 Dose: Not Given Documented by: [place] Butter/Zinc Oxide ([place] Butter/Zinc Oxide Supp.Rect) 1 supp [place] BEDTIME PRN PRN Reason: hemorrhoid pain Last Admin: 09/13/21 21:15 Dose: 1 supp Documented by: Cyanocobalamin (Cyanocobalamin (Vitamin B-12) 100 Mcg Tablet) 100 mcg PO DAILY [facility] Last Admin: 12/07/21 09:46 Dose: 100 mcg Documented by: Dibucaine (Dibucaine 1 % Oint 28 Gm Tube) 1 appl TOPICAL QID PRN; Protocol PRN Reason: Hemorrhoids Diclofenac Sodium (Diclofenac Sodium Delayed Rel 50 Mg Tablet.Dr) 50 mg PO BID [facility] Last Admin: 12/07/21 09:45 Dose: 50 mg Documented by: Docusate Sodium (Docusate Sodium 100 Mg Capsule) 100 mg PO BID [facility] Last Admin: 12/07/21 09:46 Dose: 100 mg Documented by: Duloxetine HCl (Duloxetine Hcl 20 Mg Capsule.) 40 mg PO DAILY [facility] Last Admin: 12/07/21 09:45 Dose: 40 mg Documented by: Gabapentin (Gabapentin 400 Mg Capsule) 800 mg PO TID [facility] Last Admin: 12/07/21 14:49 Dose: 800 mg Documented by: Gabapentin (Gabapentin 100 Mg Capsule) 100 mg PO TID PRN PRN Reason: neuropathic pain Last Admin: 09/26/21 17:14 Dose: 100 mg Documented by: Lamotrigine (Lamotrigine 25 Mg Tablet) 50 mg PO BEDTIME [facility] Last Admin: 12/06/21 20:25 Dose: 50 mg Documented by: Levothyroxine Sodium (Levothyroxine Sodium 25 Mcg Tablet) 12.5 mcg PO DAILY@0600 [facility] Last Admin: 12/07/21 06:39 Dose: 12.5 mcg Documented by: Lorazepam (Lorazepam 1 Mg Tablet) 1 mg PO DAILY PRN PRN Reason: anxiety Last Admin: 12/06/21 20:47 Dose: 1 mg Documented by: Multi-Ingred Cream/Lotion/Oil/Oint (Mineral Oil/Petrolatum,White 106 Gm Tube) 1 appl TOPICAL BID [facility]; Protocol Last Admin: 12/07/21 09:52 Dose: Not Given Documented by: Nicotine (Nicotine 14 Mg Patch.Td24) 14 mg TRANSDERMA DAILY [facility] Last Admin: 12/07/21 09:52 Dose: Not Given Documented by: Nicotine Polacrilex (Nicotine Polacrilex 2 Mg Gum) 4 mg BUCCAL Q1H PRN PRN Reason: Nicotine Cravings Last Admin: 12/07/21 14:49 Dose: 4 mg Documented by: Nf Medication ( Similasan Complete Eye Relief 2 Drop) 2 drop EYE-BOTH BID PRN PRN Reason: eye dryness Last Admin: 12/07/21 09:43 Dose: 2 drop Documented by: Omeprazole (Omeprazole 20 Mg Capsule.) 20 mg PO BID@0630,1630 [facility] Last Admin: 12/07/21 16:32 Dose: 20 mg Documented by: Polyethylene Glycol (Polyethylene Glycol 3350 17 Gm Powd.Pack) 17 gm PO DAILY PRN PRN Reason: Constipation Last Admin: 12/07/21 09:44 Dose: 17 gm Documented by: Psyllium Hydrophilic Mucilloid (Psyllium Seed 3.4 Gm Powd.Pack) 3.4 gm PO DAILY [facility] Last Admin: 12/07/21 09:44 Dose: 3.4 gm Documented by: Quetiapine Fumarate (Quetiapine Fumarate 100 Mg Tablet) 100 mg PO Q6H PRN PRN Reason: anxiety/restlessness Quetiapine Fumarate (Quetiapine Fumarate 100 Mg Tablet) 500 mg PO BEDTIME [facility] Last Admin: 12/06/21 20:24 Dose: 500 mg Documented by: Ropinirole HCl (Ropinirole Hcl 2 Mg Tablet) 2 mg PO DAILY@1900 [facility] Last Admin: 12/06/21 20:25 Dose: 2 mg Documented by: Senna/Docusate Sodium (Sennosides/Docusate Sodium Tablet) 1 tab PO BID [facility] Last Admin: 12/07/21 09:45 Dose: 1 tab Documented by: Simethicone (Simethicone 80 Mg Tab.Chew) 80 mg PO QIDWMHS PRN PRN Reason: bloating Sodium Chloride (Sodium Chloride 0.65 % Nasal 44 Ml Sprbtl) 1 spray NOSTRIL-B Q1H PRN PRN Reason: congestion Last Admin: 12/07/21 09:43 Dose: 1 spray Documented by: Trazodone HCl (Trazodone Hcl 25 Mg Halftab) 75 mg PO BEDTIME PRN PRN Reason: insomnia Last Admin: 12/06/21 20:47 Dose: 75 mg Documented by: Trolamine Salicylate/Aloe Vera (Trolamine Salicylate 10%/Aloe Cream 35.4 Gm) 1 appl TOPICAL QID PRN PRN Reason: leg pain Trolamine Salicylate/Aloe Vera (Trolamine Salicylate 10%/Aloe Cream 35.4 Gm) 1 appl TOPICAL QID PRN PRN Reason: mild-mod pain Last Admin: 11/21/21 16:20 Dose: 1 appl Documented by: Vitamin D (Cholecalciferol (Vitamin D3) 25 Mcg Tablet) 25 mcg PO DAILY [facility] Last Admin: 12/07/21 09:45 Dose: 25 mcg Documented by: Allergies Allergies Allergy/AdvReac Type Severity Reaction Status Date / Time aripiprazole [From Abilify] Allergy Unknown Involuntary Verified 08/19/21 07:20 Spasms chlorpromazine Allergy Unknown Nausea and Verified 08/19/21 07:20 [From Thorazine] Vomiting haloperidol [From Haldol] Allergy Unknown Involuntary Verified 08/19/21 07:20 Spasms olanzapine [From Zyprexa] Allergy Unknown Involuntary Verified 08/19/21 07:20 Spasms paliperidone [From Invega] Allergy Unknown Hallucinati Verified 08/19/21 07:20 ons risperidone Allergy Unknown Involuntary Verified 08/19/21 07:20 Spasms Assessment & Plan Assessment & Plan (1) Schizoaffective disorder, bipolar type: Status: Acute Code(s): F25.0 - Schizoaffective disorder, bipolar type (2) Lumbar radiculopathy: Status: Acute Code(s): M54.16 - Radiculopathy, lumbar region (3) Hip pain, left: Status: Acute Code(s): M25.552 - Pain in left hip Plan 11/05/21: Continue current plan. Support in transition 11/06/2021: Continue current regimen and plans. No changes were made today 11/07/2021: Continue current plans and regimen. No changes were made today 11/08/21: Discontinue a.m. Seroquel 100 mg Increase p.m. Seroquel to 700 mg from 600 mg, consolidating dosages per pt request to improve mgt of daytime sedation. 11/09/21: No changes today Throat culture, COVID-19 testing, throat lozenges prn 11/10/21: R/O CKD sx. Nephrology consultation. Discontinue [place] Lamictal 25 mg hs Encourage fluids Synthroid 12.5 mcg daily 11/11/21: No regime changes today. Continue to monitor 11/12/21: Discontinue atarax, lidocaine Requip, a.m. dose, Lidocaine per pt request Change prn Seroquel to 100 mg po q 6 h prn from 200 mg po q 6h prn Continue to monitor physical symptoms 11/13/21: No medication changes 11/14/21: increase ativan to 1 mg QHS for sleep, anxiety 11/15/21: No medication changes today 11/17/21: Support pt in transition to community. 11/18/21: Continue current plan 11/19/21: Continue current plan 11/20: Increase Cymbalta to 40 mg daily 11/21 start Voltaren 50 mg BID. No change in psychotropics. 11/22/21: Decrease Seroquel by 100 mg daily at HS Increase Lamictal to 50 mg daily CBCD, CMP Support through this process of transition. 11/23/21 Declined labs today. Re-ordered for 11/24. Support through transitional process. 11/24/21 Decrease Seroquel to 500 mg HS Magnesium Citrate x 1 prn constipation Eucerin Cream to feet. 11/25/21 Continue current plan of care Support in transition. 11/26/21 K+ level 11/27 Continue current plan of care Support in transition. 11/27 no changes to current plan 11/28 no changes to current plan 11/29 Continue current plan 11/30/21: Continue current plan. Support in transition. 12/02/21: No changes in current plan. Support in transition. 12/03/21: Continue current plan. 12/04/21: Continue current plan. 12/05/21: Continue current plan. 12/06/21: Continue current plan. 12/07/21: Urine culture. Team reports pt will be returning to [place] to respite care when a bed becomes available I spent minutes with the patient and/or on the patient floor today, greater than?50% of which was spent counseling/coordinating care. Patient educated on: therapeutic strategies and medical condition Informed Consent: understands and further education needed Reason for contiued inpatient stay Substantial Risk for: inability to function and rapid decompensation
[2021-12-07 18:00] VITALS: BP 124/84; PULSE 79; RESP 16; TEMP 36.8; O2SAT 97
[2021-12-07] MEDS: rOPINIRole HCL 2 MG TABLET PO (18:28)
[2021-12-07] MEDS: QUEtiapine Fumarate 100 MG TABLET 500 MG PO (20:35)
[2021-12-07] MEDS: LORazepam 1 MG TABLET PO (20:35)
[2021-12-07] MEDS: lamoTRIgine 25 MG TABLET 50 MG PO (20:36)
[2021-12-07] MEDS: traZODone HCL 25 MG HALFTAB 75 MG PO (20:37)
[2021-12-08] MEDS: Omeprazole 20 MG CAPSULE.DR PO ×2 (06:32→16:13)
[2021-12-08] MEDS: Levothyroxine Sodium 25 MCG TABLET 12.5 MCG PO (06:33)
[2021-12-08] MEDS: polyethylene glycoL 3350 17 GM POWD.PACK PO (09:44)
[2021-12-08] MEDS: Sennosides/Docusate Sodium TABLET 1 TAB PO ×2 (09:44→21:06)
[2021-12-08] MEDS: Sodium Chloride 0.65 % Nasal 44 ML SPRBTL 1 SPRAY NOSTRIL-B ×2 (09:44→20:59)
[2021-12-08] MEDS: Cholecalciferol (Vitamin D3) 25 MCG TABLET PO (09:44)
[2021-12-08] MEDS: Gabapentin 400 MG CAPSULE 800 MG PO ×3 (09:44→21:07)
[2021-12-08] MEDS: LORazepam 1 MG TABLET PO (09:44)
[2021-12-08] MEDS: Cyanocobalamin (Vitamin B-12) 100 MCG TABLET PO (09:45)
[2021-12-08] MEDS: amLODIPine Besylate 2.5 MG TABLET PO (09:45)
[2021-12-08] MEDS: Nicotine Polacrilex 2 MG GUM 4 MG BUCCAL ×4 (09:45→21:11)
[2021-12-08] MEDS: Diclofenac Sodium Delayed Rel 50 MG TABLET.DR PO ×2 (09:45→21:05)
[2021-12-08] MEDS: Docusate Sodium 100 MG CAPSULE PO ×2 (09:45→21:03)
[2021-12-08] MEDS: Mineral Oil/Petrolatum,White 106 GM Tube 1 APPL TOPICAL (09:46)
[2021-12-08] MEDS: DULoxetine HCl 20 MG CAPSULE.DR 40 MG PO (09:59)
[2021-12-08] MEDS: Capsaicin 0.025% Cream 60 GM TUBE 1 APPL TOPICAL ×2 (09:59→21:02)
[2021-12-08 10:06] VITALS: BP 106/69; PULSE 76; TEMP 35.9; O2SAT 96
--- NOTE | 2021-12-08 16:13 | HO.PSYCHPN ---
Subjective Subjective Date of Service: 12/08/21 Reason For Visit: Bipolar, Schizoaffective Subjective Notes: Conditional Voluntary Healthcare Proxy: No Guardianship: No Medical Problems Affecting Mental Status: No Interim History: Reports UTI sx. Culture ordered. Discussed anxiety regarding termination. Will discharge next week to [facility]. Medication Compliance: Yes Side effects from medications: No Attending Groups: Intermittent Review of Systems Acute medical concerns: No Medical Review of Systems: unchanged Review of Systems Genitourinary: Reports dysuria Psychiatric: Reports no additional psychiatric complaints Mental Status Exam Mental Status Exam Patient Appearance: Appropriate Patient Orientation: Person, Place, Time and Situation Level of Consciousness: Alert Patient Behavior: Talkative and Good Eye Contact Mood Description: Anxious and Apprehensive Affect Description: Anxious, Flat and Apprehensive Patient Cognition Impaired: No Ability to Follow Directions: Good Speech Pattern: Spontaneous Speech Hallucinations: Auditory (baseline) Delusions: Not Present Perceptual Disturbances: Depersonalization and Derealization Thought Process: Goal Oriented Thought Content: positive for [place] and positive for Circumstantial Depressive Symptoms: Increased Anxiety, Increased Fatigue and Loss of Energy Judgement: Good Diagnostics Vital Signs (24Hr): Vital Signs - 24 hr 12/07/21 18:00 12/08/21 10:06 Temperature 98.2 F 96.7 F L Pulse Rate 79 76 Respiratory Rate 16 Blood Pressure 124/84 106/69 Pulse Oximetry 97 96 BMI result Body Mass Index 38.0 Labs Results: 11/24/21 08:08 11/24/21 08:08 Imaging Radiology Impressions: ITS Impressions Abdomen Ultrasound 09/01/21 08:59 IMPRESSION: Slightly echogenic liver. Limited evaluation of the gallbladder as the patient has recently eaten. No gallstone seen. Limited visualization of the pancreas. Hip X-Ray 09/16/21 14:47 IMPRESSION: Moderate to severe left hip arthritis. Medications Medications Current Medications Acetaminophen (Acetaminophen 325 Mg Tablet) 975 mg PO Q6H PRN PRN Reason: Headache/Pain Mild Scale (1-3) Last Admin: 12/04/21 21:07 Dose: 975 mg Documented by: Amlodipine Besylate (Amlodipine Besylate 2.5 Mg Tablet) 2.5 mg PO DAILY [facility]; Protocol Last Admin: 12/08/21 09:45 Dose: 2.5 mg Documented by: Artificial Tears (Artificial Tears 15 Ml Drops) 2 drop EYE-BOTH Q4H PRN PRN Reason: Dry Eyes Last Admin: 11/19/21 08:54 Dose: 2 drop Documented by: Artificial Tears (Artificial Tears 15 Ml Drops) 2 drop EYE-BOTH Q4H PRN PRN Reason: dry eyes Benzocaine (Benzocaine 20 % Oral Gel 9 Gm Tube) 1 appl MUCOUS MEM QID PRN; Protocol PRN Reason: Mouth Sore Pain Last Admin: 08/31/21 03:05 Dose: 1 appl Documented by: Benzocaine (Throat Lozenge, Medicated Lozenge) 1 lozenge MUCOUS MEM Q2H PRN PRN Reason: Sore Throat Calcium Carbonate (Calcium Carbonate 500 Mg Tablet) 500 mg PO DAILY [facility] Last Admin: 12/08/21 09:45 Dose: 500 mg Documented by: Calcium Carbonate (Calcium Carbonate 750 Mg Tab.Chew) 750 mg PO Q4H PRN PRN Reason: Heartburn Last Admin: 12/02/21 20:19 Dose: 750 mg Documented by: Capsaicin (Capsaicin 0.025% Cream 60 Gm Tube) 1 appl TOPICAL QID PRN; Protocol PRN Reason: leg pain Last Admin: 12/08/21 09:59 Dose: 1 appl Documented by: Clotrimazole (Clotrimazole 1 % Cream 15 Gm Tube) 1 appl TOPICAL BID [facility]; Protocol Last Admin: 12/08/21 09:46 Dose: Not Given Documented by: [place] Butter/Zinc Oxide ([place] Butter/Zinc Oxide Supp.Rect) 1 supp [place] BEDTIME PRN PRN Reason: hemorrhoid pain Last Admin: 09/13/21 21:15 Dose: 1 supp Documented by: Cyanocobalamin (Cyanocobalamin (Vitamin B-12) 100 Mcg Tablet) 100 mcg PO DAILY [facility] Last Admin: 12/08/21 09:45 Dose: 100 mcg Documented by: Dibucaine (Dibucaine 1 % Oint 28 Gm Tube) 1 appl TOPICAL QID PRN; Protocol PRN Reason: Hemorrhoids Diclofenac Sodium (Diclofenac Sodium Delayed Rel 50 Mg Tablet.) 50 mg PO BID [facility] Last Admin: 12/08/21 09:45 Dose: 50 mg Documented by: Docusate Sodium (Docusate Sodium 100 Mg Capsule) 100 mg PO BID [facility] Last Admin: 12/08/21 09:45 Dose: 100 mg Documented by: Duloxetine HCl (Duloxetine Hcl 20 Mg Capsule.) 40 mg PO DAILY [facility] Last Admin: 12/08/21 09:59 Dose: 40 mg Documented by: Gabapentin (Gabapentin 400 Mg Capsule) 800 mg PO TID [facility] Last Admin: 12/08/21 14:32 Dose: 800 mg Documented by: Gabapentin (Gabapentin 100 Mg Capsule) 100 mg PO TID PRN PRN Reason: neuropathic pain Last Admin: 09/26/21 17:14 Dose: 100 mg Documented by: Lamotrigine (Lamotrigine 25 Mg Tablet) 50 mg PO BEDTIME [facility] Last Admin: 12/07/21 20:36 Dose: 50 mg Documented by: Levothyroxine Sodium (Levothyroxine Sodium 25 Mcg Tablet) 12.5 mcg PO DAILY@0600 [facility] Last Admin: 12/08/21 06:33 Dose: 12.5 mcg Documented by: Lorazepam (Lorazepam 1 Mg Tablet) 1 mg PO DAILY PRN PRN Reason: anxiety Last Admin: 12/08/21 09:44 Dose: 1 mg Documented by: Multi-Ingred Cream/Lotion/Oil/Oint (Mineral Oil/Petrolatum,White 106 Gm Tube) 1 appl TOPICAL BID [facility]; Protocol Last Admin: 12/08/21 09:46 Dose: 1 appl Documented by: Nicotine (Nicotine 14 Mg Patch.Td24) 14 mg TRANSDERMA DAILY [facility] Last Admin: 12/08/21 09:46 Dose: Not Given Documented by: Nicotine Polacrilex (Nicotine Polacrilex 2 Mg Gum) 4 mg BUCCAL Q1H PRN PRN Reason: Nicotine Cravings Last Admin: 12/08/21 13:31 Dose: 4 mg Documented by: Nf Medication ( Similasan Complete Eye Relief 2 Drop) 2 drop EYE-BOTH BID PRN PRN Reason: eye dryness Last Admin: 12/08/21 09:44 Dose: 2 drop Documented by: Omeprazole (Omeprazole 20 Mg Capsule.) 20 mg PO BID@0630,1630 [facility] Last Admin: 12/08/21 06:32 Dose: 20 mg Documented by: Polyethylene Glycol (Polyethylene Glycol 3350 17 Gm Powd.Pack) 17 gm PO DAILY PRN PRN Reason: Constipation Last Admin: 12/08/21 09:44 Dose: 17 gm Documented by: Psyllium Hydrophilic Mucilloid (Psyllium Seed 3.4 Gm Powd.Pack) 3.4 gm PO DAILY [facility] Last Admin: 12/08/21 09:44 Dose: 3.4 gm Documented by: Quetiapine Fumarate (Quetiapine Fumarate 100 Mg Tablet) 100 mg PO Q6H PRN PRN Reason: anxiety/restlessness Quetiapine Fumarate (Quetiapine Fumarate 100 Mg Tablet) 500 mg PO BEDTIME [facility] Last Admin: 12/07/21 20:35 Dose: 500 mg Documented by: Ropinirole HCl (Ropinirole Hcl 2 Mg Tablet) 2 mg PO DAILY@1900 [facility] Last Admin: 12/07/21 18:28 Dose: 2 mg Documented by: Senna/Docusate Sodium (Sennosides/Docusate Sodium Tablet) 1 tab PO BID [facility] Last Admin: 12/08/21 09:44 Dose: 1 tab Documented by: Simethicone (Simethicone 80 Mg Tab.Chew) 80 mg PO QIDWMHS PRN PRN Reason: bloating Sodium Chloride (Sodium Chloride 0.65 % Nasal 44 Ml Sprbtl) 1 spray NOSTRIL-B Q1H PRN PRN Reason: congestion Last Admin: 12/08/21 09:44 Dose: 1 spray Documented by: Trazodone HCl (Trazodone Hcl 25 Mg Halftab) 75 mg PO BEDTIME PRN PRN Reason: insomnia Last Admin: 12/07/21 20:37 Dose: 75 mg Documented by: Trolamine Salicylate/Aloe Vera (Trolamine Salicylate 10%/Aloe Cream 35.4 Gm) 1 appl TOPICAL QID PRN PRN Reason: leg pain Trolamine Salicylate/Aloe Vera (Trolamine Salicylate 10%/Aloe Cream 35.4 Gm) 1 appl TOPICAL QID PRN PRN Reason: mild-mod pain Last Admin: 11/21/21 16:20 Dose: 1 appl Documented by: Vitamin D (Cholecalciferol (Vitamin D3) 25 Mcg Tablet) 25 mcg PO DAILY [facility] Last Admin: 12/08/21 09:44 Dose: 25 mcg Documented by: Allergies Allergies Allergy/AdvReac Type Severity Reaction Status Date / Time aripiprazole [From Abilify] Allergy Unknown Involuntary Verified 08/19/21 07:20 Spasms chlorpromazine Allergy Unknown Nausea and Verified 08/19/21 07:20 [From Thorazine] Vomiting haloperidol [From Haldol] Allergy Unknown Involuntary Verified 08/19/21 07:20 Spasms olanzapine [From Zyprexa] Allergy Unknown Involuntary Verified 08/19/21 07:20 Spasms paliperidone [From Invega] Allergy Unknown Hallucinati Verified 08/19/21 07:20 ons risperidone Allergy Unknown Involuntary Verified 08/19/21 07:20 Spasms Assessment & Plan Assessment & Plan (1) Schizoaffective disorder, bipolar type: Status: Acute Code(s): F25.0 - Schizoaffective disorder, bipolar type (2) Lumbar radiculopathy: Status: Acute Code(s): M54.16 - Radiculopathy, lumbar region (3) Hip pain, left: Status: Acute Code(s): M25.552 - Pain in left hip Plan 11/05/21: Continue current plan. Support in transition 11/06/2021: Continue current regimen and plans. No changes were made today 11/07/2021: Continue current plans and regimen. No changes were made today 11/08/21: Discontinue a.m. Seroquel 100 mg Increase p.m. Seroquel to 700 mg from 600 mg, consolidating dosages per pt request to improve mgt of daytime sedation. 11/09/21: No changes today Throat culture, COVID-19 testing, throat lozenges prn 11/10/21: R/O CKD sx. Nephrology consultation. Discontinue [place] Lamictal 25 mg hs Encourage fluids Synthroid 12.5 mcg daily 11/11/21: No regime changes today. Continue to monitor 11/12/21: Discontinue atarax, lidocaine Requip, a.m. dose, Lidocaine per pt request Change prn Seroquel to 100 mg po q 6 h prn from 200 mg po q 6h prn Continue to monitor physical symptoms 11/13/21: No medication changes 11/14/21: increase ativan to 1 mg QHS for sleep, anxiety 11/15/21: No medication changes today 11/17/21: Support pt in transition to community. 11/18/21: Continue current plan 11/19/21: Continue current plan 11/20: Increase Cymbalta to 40 mg daily 11/21 start Voltaren 50 mg BID. No change in psychotropics. 11/22/21: Decrease Seroquel by 100 mg daily at HS Increase Lamictal to 50 mg daily CBCD, CMP Support through this process of transition. 11/23/21 Declined labs today. Re-ordered for 11/24. Support through transitional process. 11/24/21 Decrease Seroquel to 500 mg HS Magnesium Citrate x 1 prn constipation Eucerin Cream to feet. 11/25/21 Continue current plan of care Support in transition. 11/26/21 K+ level 11/27 Continue current plan of care Support in transition. 11/27 no changes to current plan 11/28 no changes to current plan 11/29 Continue current plan 11/30/21: Continue current plan. Support in transition. 12/02/21: No changes in current plan. Support in transition. 12/03/21: Continue current plan. 12/04/21: Continue current plan. 12/05/21: Continue current plan. 12/06/21: Continue current plan. 12/08/21: Discharge next week. Termination work. Urine Culture. I spent minutes with the patient and/or on the patient floor today, greater than?50% of which was spent counseling/coordinating care. Patient educated on: therapeutic strategies and medical condition Informed Consent: understands Reason for contiued inpatient stay Substantial Risk for: inability to function and rapid decompensation
[2021-12-08 18:00] VITALS: BP 141/87; PULSE 97; RESP 18; TEMP 36.4; O2SAT 97
[2021-12-08] MEDS: rOPINIRole HCL 2 MG TABLET PO (18:53)
[2021-12-08] MEDS: QUEtiapine Fumarate 100 MG TABLET 500 MG PO (21:04)
[2021-12-08] MEDS: traZODone HCL 25 MG HALFTAB 75 MG PO (21:04)
[2021-12-08] MEDS: Simethicone 80 MG TAB.CHEW PO (21:05)
[2021-12-08] MEDS: lamoTRIgine 25 MG TABLET 50 MG PO (21:06)
[2021-12-08] MEDS: Gabapentin 100 MG CAPSULE PO (21:06)
[2021-12-08] MEDS: Acetaminophen 325 MG TABLET 975 MG PO (21:06)
[2021-12-09] MEDS: Omeprazole 20 MG CAPSULE.DR PO (06:43)
[2021-12-09] MEDS: Levothyroxine Sodium 25 MCG TABLET 12.5 MCG PO (06:43)
[2021-12-09 07:00] VITALS: BMI 38.7
[2021-12-09 09:20] VITALS: BP 109/63; PULSE 83; TEMP 37; O2SAT 96
[2021-12-09] MEDS: Capsaicin 0.025% Cream 60 GM TUBE 1 APPL TOPICAL (09:36)
[2021-12-09] MEDS: Cyanocobalamin (Vitamin B-12) 100 MCG TABLET PO (09:37)
[2021-12-09] MEDS: Nicotine Polacrilex 2 MG GUM 4 MG BUCCAL ×4 (09:37→21:07)
[2021-12-09] MEDS: polyethylene glycoL 3350 17 GM POWD.PACK PO (09:37)
[2021-12-09] MEDS: Cholecalciferol (Vitamin D3) 25 MCG TABLET PO (09:37)
[2021-12-09] MEDS: Sennosides/Docusate Sodium TABLET 1 TAB PO ×2 (09:38→19:52)
[2021-12-09] MEDS: Gabapentin 400 MG CAPSULE 800 MG PO ×3 (09:38→19:52)
[2021-12-09] MEDS: Sodium Chloride 0.65 % Nasal 44 ML SPRBTL 1 SPRAY NOSTRIL-B (09:38)
[2021-12-09] MEDS: Docusate Sodium 100 MG CAPSULE PO ×2 (09:38→19:53)
[2021-12-09] MEDS: Diclofenac Sodium Delayed Rel 50 MG TABLET.DR PO ×2 (09:38→19:51)
[2021-12-09] MEDS: DULoxetine HCl 20 MG CAPSULE.DR 40 MG PO (09:38)
[2021-12-09] MEDS: amLODIPine Besylate 2.5 MG TABLET PO (09:39)
--- NOTE | 2021-12-09 17:42 | HO.PSYCHPN ---
Subjective Subjective Date of Service: 12/09/21 Reason For Visit: Bipolar, Schizoaffective Subjective Notes: Conditional Voluntary Healthcare Proxy: No Guardianship: No Medical Problems Affecting Mental Status: No Interim History: Met with pt and Kristy BLACWKOOD. Review of letter written to the court regarding appeal of animal cruelty charge. Review of discharge plan-12/14 to [facility] Respite. Prescriber order form completed. Pt discussed her feelings regarding transition. Termination work initiated. Medication Compliance: Yes Side effects from medications: No Attending Groups: Intermittent Review of Systems Acute medical concerns: No Medical Review of Systems: unchanged Review of Systems Genitourinary: Reports dysuria Psychiatric: Reports no additional psychiatric complaints Mental Status Exam Mental Status Exam Patient Appearance: Appropriate Patient Orientation: Person, Place, Time and Situation Level of Consciousness: Alert Patient Behavior: Talkative and Good Eye Contact Mood Description: Anxious and Apprehensive Affect Description: Anxious, Flat and Apprehensive Patient Cognition Impaired: No Ability to Follow Directions: Good Speech Pattern: Spontaneous Speech Hallucinations: Auditory (baseline) Delusions: Not Present Perceptual Disturbances: Depersonalization and Derealization Thought Process: Goal Oriented Thought Content: positive for [place] and positive for Circumstantial Depressive Symptoms: Increased Anxiety, Increased Fatigue and Loss of Energy Judgement: Good Diagnostics Vital Signs (24Hr): Vital Signs - 24 hr 12/08/21 18:00 12/09/21 09:20 Temperature 97.6 F 98.6 F Pulse Rate 97 83 Respiratory Rate 18 Blood Pressure 141/87 H 109/63 Pulse Oximetry 97 96 BMI result Body Mass Index 38.7 Labs Results: 11/24/21 08:08 11/24/21 08:08 Imaging Radiology Impressions: ITS Impressions Abdomen Ultrasound 09/01/21 08:59 IMPRESSION: Slightly echogenic liver. Limited evaluation of the gallbladder as the patient has recently eaten. No gallstone seen. Limited visualization of the pancreas. Hip X-Ray 09/16/21 14:47 IMPRESSION: Moderate to severe left hip arthritis. Medications Medications Current Medications Acetaminophen (Acetaminophen 325 Mg Tablet) 975 mg PO Q6H PRN PRN Reason: Headache/Pain Mild Scale (1-3) Last Admin: 12/08/21 21:06 Dose: 975 mg Documented by: Amlodipine Besylate (Amlodipine Besylate 2.5 Mg Tablet) 2.5 mg PO DAILY YAYA; Protocol Last Admin: 12/09/21 09:39 Dose: 2.5 mg Documented by: Artificial Tears (Artificial Tears 15 Ml Drops) 2 drop EYE-BOTH Q4H PRN PRN Reason: Dry Eyes Last Admin: 11/19/21 08:54 Dose: 2 drop Documented by: Artificial Tears (Artificial Tears 15 Ml Drops) 2 drop EYE-BOTH Q4H PRN PRN Reason: dry eyes Benzocaine (Benzocaine 20 % Oral Gel 9 Gm Tube) 1 appl MUCOUS MEM QID PRN; Protocol PRN Reason: Mouth Sore Pain Last Admin: 08/31/21 03:05 Dose: 1 appl Documented by: Benzocaine (Throat Lozenge, Medicated Lozenge) 1 lozenge MUCOUS MEM Q2H PRN PRN Reason: Sore Throat Calcium Carbonate (Calcium Carbonate 500 Mg Tablet) 500 mg PO DAILY [facility] Last Admin: 12/09/21 09:38 Dose: 500 mg Documented by: Calcium Carbonate (Calcium Carbonate 750 Mg Tab.Chew) 750 mg PO Q4H PRN PRN Reason: Heartburn Last Admin: 12/02/21 20:19 Dose: 750 mg Documented by: Capsaicin (Capsaicin 0.025% Cream 60 Gm Tube) 1 appl TOPICAL QID PRN; Protocol PRN Reason: leg pain Last Admin: 12/09/21 09:36 Dose: 1 appl Documented by: Clotrimazole (Clotrimazole 1 % Cream 15 Gm Tube) 1 appl TOPICAL BID YAYA; Protocol Last Admin: 12/09/21 10:05 Dose: Not Given Documented by: [place] Butter/Zinc Oxide ([place] Butter/Zinc Oxide Supp.Rect) 1 supp [place] BEDTIME PRN PRN Reason: hemorrhoid pain Last Admin: 09/13/21 21:15 Dose: 1 supp Documented by: Cyanocobalamin (Cyanocobalamin (Vitamin B-12) 100 Mcg Tablet) 100 mcg PO DAILY [facility] Last Admin: 12/09/21 09:37 Dose: 100 mcg Documented by: Dibucaine (Dibucaine 1 % Oint 28 Gm Tube) 1 appl TOPICAL QID PRN; Protocol PRN Reason: Hemorrhoids Last Admin: 12/09/21 09:37 Dose: 1 appl Documented by: Diclofenac Sodium (Diclofenac Sodium Delayed Rel 50 Mg Donna.) 50 mg PO BID [facility] Last Admin: 12/09/21 09:38 Dose: 50 mg Documented by: Docusate Sodium (Docusate Sodium 100 Mg Capsule) 100 mg PO BID [facility] Last Admin: 12/09/21 09:38 Dose: 100 mg Documented by: Duloxetine HCl (Duloxetine Hcl 20 Mg Capsule.) 40 mg PO DAILY [facility] Last Admin: 12/09/21 09:38 Dose: 40 mg Documented by: Gabapentin (Gabapentin 400 Mg Capsule) 800 mg PO TID [facility] Last Admin: 12/09/21 14:54 Dose: 800 mg Documented by: Gabapentin (Gabapentin 100 Mg Capsule) 100 mg PO TID PRN PRN Reason: neuropathic pain Last Admin: 12/08/21 21:06 Dose: 100 mg Documented by: Lamotrigine (Lamotrigine 25 Mg Tablet) 50 mg PO BEDTIME [facility] Last Admin: 12/08/21 21:06 Dose: 50 mg Documented by: Levothyroxine Sodium (Levothyroxine Sodium 25 Mcg Tablet) 12.5 mcg PO DAILY@0600 [facility] Last Admin: 12/09/21 06:43 Dose: 12.5 mcg Documented by: Lorazepam (Lorazepam 1 Mg Tablet) 1 mg PO BEDTIME [facility] Multi-Ingred Cream/Lotion/Oil/Oint (Mineral Oil/Petrolatum,White 106 Gm Tube) 1 appl TOPICAL BID [facility]; Protocol Last Admin: 12/09/21 10:06 Dose: Not Given Documented by: Nicotine (Nicotine 14 Mg Patch.Td24) 14 mg TRANSDERMA DAILY [facility] Last Admin: 12/09/21 10:06 Dose: Not Given Documented by: Nicotine Polacrilex (Nicotine Polacrilex 2 Mg Gum) 4 mg BUCCAL Q1H PRN PRN Reason: Nicotine Cravings Last Admin: 12/09/21 14:54 Dose: 4 mg Documented by: Nf Medication ( Similasan Complete Eye Relief 2 Drop) 2 drop EYE-BOTH BID PRN PRN Reason: eye dryness Last Admin: 12/09/21 09:37 Dose: 2 drop Documented by: Omeprazole (Omeprazole 20 Mg Capsule.) 20 mg PO BID@0630,1630 [facility] Last Admin: 12/09/21 06:43 Dose: 20 mg Documented by: Polyethylene Glycol (Polyethylene Glycol 3350 17 Gm Powd.Pack) 17 gm PO DAILY PRN PRN Reason: Constipation Last Admin: 12/09/21 09:37 Dose: 17 gm Documented by: Psyllium Hydrophilic Mucilloid (Psyllium Seed 3.4 Gm Powd.Pack) 3.4 gm PO DAILY [facility] Last Admin: 12/09/21 09:37 Dose: 3.4 gm Documented by: Quetiapine Fumarate (Quetiapine Fumarate 100 Mg Tablet) 100 mg PO Q6H PRN PRN Reason: anxiety/restlessness Quetiapine Fumarate (Quetiapine Fumarate 100 Mg Tablet) 500 mg PO BEDTIME [facility] Last Admin: 12/08/21 21:04 Dose: 500 mg Documented by: Ropinirole HCl (Ropinirole Hcl 2 Mg Tablet) 2 mg PO DAILY@1900 [facility] Last Admin: 12/08/21 18:53 Dose: 2 mg Documented by: Senna/Docusate Sodium (Sennosides/Docusate Sodium Tablet) 1 tab PO BID [facility] Last Admin: 12/09/21 09:38 Dose: 1 tab Documented by: Simethicone (Simethicone 80 Mg Tab.Chew) 80 mg PO QIDWMHS PRN PRN Reason: bloating Last Admin: 12/08/21 21:05 Dose: 80 mg Documented by: Sodium Chloride (Sodium Chloride 0.65 % Nasal 44 Ml Sprbtl) 1 spray NOSTRIL-B Q1H PRN PRN Reason: congestion Last Admin: 12/09/21 09:38 Dose: 1 spray Documented by: Trazodone HCl (Trazodone Hcl 25 Mg Halftab) 75 mg PO BEDTIME [facility] Trolamine Salicylate/Aloe Vera (Trolamine Salicylate 10%/Aloe Cream 35.4 Gm) 1 appl TOPICAL QID PRN PRN Reason: leg pain Trolamine Salicylate/Aloe Vera (Trolamine Salicylate 10%/Aloe Cream 35.4 Gm) 1 appl TOPICAL QID PRN PRN Reason: mild-mod pain Last Admin: 11/21/21 16:20 Dose: 1 appl Documented by: Vitamin D (Cholecalciferol (Vitamin D3) 25 Mcg Tablet) 25 mcg PO DAILY [facility] Last Admin: 12/09/21 09:37 Dose: 25 mcg Documented by: Allergies Allergies Allergy/AdvReac Type Severity Reaction Status Date / Time [facility] Allergy Unknown Involuntary Verified 08/19/21 07:20 Spasms chlorpromazine Allergy Unknown Nausea and Verified 08/19/21 07:20 [From Thorazine] Vomiting haloperidol [From Haldol] Allergy Unknown Involuntary Verified 08/19/21 07:20 Spasms olanzapine [From Zyprexa] Allergy Unknown Involuntary Verified 08/19/21 07:20 Spasms paliperidone [From Invega] Allergy Unknown Hallucinati Verified 08/19/21 07:20 ons risperidone Allergy Unknown Involuntary Verified 08/19/21 07:20 Spasms Assessment & Plan Assessment & Plan (1) Schizoaffective disorder, bipolar type: Status: Acute Code(s): F25.0 - Schizoaffective disorder, bipolar type (2) Lumbar radiculopathy: Status: Acute Code(s): M54.16 - Radiculopathy, lumbar region (3) Hip pain, left: Status: Acute Code(s): M25.552 - Pain in left hip Plan 11/05/21: Continue current plan. Support in transition 11/06/2021: Continue current regimen and plans. No changes were made today 11/07/2021: Continue current plans and regimen. No changes were made today 11/08/21: Discontinue a.m. Seroquel 100 mg Increase p.m. Seroquel to 700 mg from 600 mg, consolidating dosages per pt request to improve mgt of daytime sedation. 11/09/21: No changes today Throat culture, COVID-19 testing, throat lozenges prn 11/10/21: R/O CKD sx. Nephrology consultation. Discontinue [place] Lamictal 25 mg hs Encourage fluids Synthroid 12.5 mcg daily 11/11/21: No regime changes today. Continue to monitor 11/12/21: Discontinue atarax, lidocaine Requip, a.m. dose, Lidocaine per pt request Change prn Seroquel to 100 mg po q 6 h prn from 200 mg po q 6h prn Continue to monitor physical symptoms 11/13/21: No medication changes 11/14/21: increase ativan to 1 mg QHS for sleep, anxiety 11/15/21: No medication changes today 11/17/21: Support pt in transition to community. 11/18/21: Continue current plan 11/19/21: Continue current plan 11/20: Increase Cymbalta to 40 mg daily 11/21 start Voltaren 50 mg BID. No change in psychotropics. 11/22/21: Decrease Seroquel by 100 mg daily at HS Increase Lamictal to 50 mg daily CBCD, CMP Support through this process of transition. 11/23/21 Declined labs today. Re-ordered for 11/24. Support through transitional process. 11/24/21 Decrease Seroquel to 500 mg HS Magnesium Citrate x 1 prn constipation Eucerin Cream to feet. 11/25/21 Continue current plan of care Support in transition. 11/26/21 K+ level 11/27 Continue current plan of care Support in transition. 11/27 no changes to current plan 11/28 no changes to current plan 11/29 Continue current plan 11/30/21: Continue current plan. Support in transition. 12/02/21: No changes in current plan. Support in transition. 12/03/21: Continue current plan. 12/04/21: Continue current plan. 12/05/21: Continue current plan. 12/06/21: Continue current plan. 12/07/21: Urine culture. Team reports pt will be returning to [place] to respite care when a bed becomes available 12/09/21: Dicharge 12/14 to [facility] respite. Prescriber order forms completed for [facility], Letter to the court to address animal cruelty charge writter and approved by pt. I spent minutes with the patient and/or on the patient floor today, greater than?50% of which was spent counseling/coordinating care. Patient educated on: therapeutic strategies Informed Consent: understands Reason for contiued inpatient stay Substantial Risk for: inability to function and rapid decompensation
[2021-12-09 18:00] VITALS: RESP 16
[2021-12-09] MEDS: rOPINIRole HCL 2 MG TABLET PO (18:29)
[2021-12-09] MEDS: QUEtiapine Fumarate 100 MG TABLET 500 MG PO (19:52)
[2021-12-09] MEDS: LORazepam 1 MG TABLET PO (19:52)
[2021-12-09] MEDS: traZODone HCL 25 MG HALFTAB 75 MG PO (19:52)
[2021-12-09] MEDS: lamoTRIgine 25 MG TABLET 50 MG PO (19:53)
[2021-12-10] MEDS: Levothyroxine Sodium 25 MCG TABLET 12.5 MCG PO (06:01)
[2021-12-10] MEDS: Omeprazole 20 MG CAPSULE.DR PO ×2 (06:02→15:34)
[2021-12-10] MEDS: Sodium Chloride 0.65 % Nasal 44 ML SPRBTL 1 SPRAY NOSTRIL-B (08:55)
[2021-12-10] MEDS: Gabapentin 400 MG CAPSULE 800 MG PO ×3 (08:56→20:30)
[2021-12-10] MEDS: DULoxetine HCl 20 MG CAPSULE.DR 40 MG PO (08:56)
[2021-12-10] MEDS: Cyanocobalamin (Vitamin B-12) 100 MCG TABLET PO (08:57)
[2021-12-10] MEDS: Docusate Sodium 100 MG CAPSULE PO ×2 (08:57→20:31)
[2021-12-10] MEDS: Cholecalciferol (Vitamin D3) 25 MCG TABLET PO (08:57)
[2021-12-10] MEDS: Sennosides/Docusate Sodium TABLET 1 TAB PO ×2 (08:57→20:35)
[2021-12-10] MEDS: amLODIPine Besylate 2.5 MG TABLET PO (08:58)
[2021-12-10] MEDS: Diclofenac Sodium Delayed Rel 50 MG TABLET.DR PO ×2 (08:58→20:35)
[2021-12-10 09:00] VITALS: BP 122/81; PULSE 80; RESP 16; TEMP 36.5; O2SAT 97
[2021-12-10] MEDS: polyethylene glycoL 3350 17 GM POWD.PACK PO (09:07)
[2021-12-10] MEDS: Nicotine Polacrilex 2 MG GUM 4 MG BUCCAL ×3 (09:08→19:32)
--- NOTE | 2021-12-10 11:16 | HO.PSYCHPN ---
Subjective Subjective Date of Service: 12/10/21 Reason For Visit: Bipolar, Schizoaffective Subjective Notes: Section 8 Interim History: Per nursing, pt has been visible on the unit, attends and appropriately participates in groups. Pt eating and sleeping well. Pt reports looking forward to be discharged next week. She reports mood okay. She reports some frustration as to moving back to [facility] and not staying in this area. She denies SI/HI. no overt delusional content reported or noted. No VH/AH. No SI. Pt reports constipation- no BM in 6 days, asks for mag citrate- which was ordered. no abdominal pain. Medication Compliance: Yes Review of Systems Review of Systems Anxiety/depression Yes all other systems are reviewed and are negative Reports sore throat Cardiovascular: Reports chest pain and Reports dyspnea Respiratory: Reports dyspnea Gastrointestinal: Reports other (hemorrhoid pain) Musculoskeletal: Reports back pain, Reports myalgias, Reports arthralgias, Reports stiffness and Reports other (hip pain) Reports behavioral changes, Reports confusion and Reports memory loss Psychiatric: Reports no additional psychiatric complaints, Reports abnormal sleep pattern, Reports anxiety, Reports behavioral changes, Reports change in appetite, Reports confusion, Reports depression, Reports difficulty concentrating, Reports auditory hallucinations, Reports hopelessness, Reports irritability, Reports anhedonia, Reports memory loss, Reports mood swings, Reports paranoia, Reports visual hallucinations, Reports hallucinations, Reports homicidal ideation (denies), Reports suicidal ideation (denies) and Reports other (guilt and remorse regarding behavioral sx during vasquez) Mental Status Exam Mental Status Exam Narrative: Patient Appearance:?Appropriate Patient Orientation:?Person, Place, Time and Situation Level of Consciousness:?Alert Patient Behavior:?Talkative, Cooperative and Good Eye Contact Mood Description:?fine Affect Description:?congruent Patient Cognition Impaired:?No Ability to Follow Directions:?Good Speech Pattern:?Spontaneous Speech Memory Description:?Intact Delusions:?Not Present Perceptual Disturbances:?none Thought Process:?goal oriented; can be circumstantial Thought Content dispo Judgement:?Fair Diagnostics Vital Signs (24Hr): Vital Signs - 24 hr 12/09/21 18:00 12/10/21 09:00 Temperature 97.7 F Pulse Rate 80 Respiratory Rate 16 16 Blood Pressure 122/81 Pulse Oximetry 97 BMI result Body Mass Index 38.7 Labs Results: 11/24/21 08:08 11/24/21 08:08 Imaging Radiology Impressions: ITS Impressions Abdomen Ultrasound 09/01/21 08:59 IMPRESSION: Slightly echogenic liver. Limited evaluation of the gallbladder as the patient has recently eaten. No gallstone seen. Limited visualization of the pancreas. Hip X-Ray 09/16/21 14:47 IMPRESSION: Moderate to severe left hip arthritis. Medications Medications Current Medications Acetaminophen (Acetaminophen 325 Mg Tablet) 975 mg PO Q6H PRN PRN Reason: Headache/Pain Mild Scale (1-3) Last Admin: 12/08/21 21:06 Dose: 975 mg Documented by: Amlodipine Besylate (Amlodipine Besylate 2.5 Mg Tablet) 2.5 mg PO DAILY [facility]; Protocol Last Admin: 12/10/21 08:58 Dose: 2.5 mg Documented by: Artificial Tears (Artificial Tears 15 Ml Drops) 2 drop EYE-BOTH Q4H PRN PRN Reason: Dry Eyes Last Admin: 11/19/21 08:54 Dose: 2 drop Documented by: Artificial Tears (Artificial Tears 15 Ml Drops) 2 drop EYE-BOTH Q4H PRN PRN Reason: dry eyes Benzocaine (Benzocaine 20 % Oral Gel 9 Gm Tube) 1 appl MUCOUS MEM QID PRN; Protocol PRN Reason: Mouth Sore Pain Last Admin: 08/31/21 03:05 Dose: 1 appl Documented by: Benzocaine (Throat Lozenge, Medicated Lozenge) 1 lozenge MUCOUS MEM Q2H PRN PRN Reason: Sore Throat Calcium Carbonate (Calcium Carbonate 500 Mg Tablet) 500 mg PO DAILY [facility] Last Admin: 12/10/21 08:58 Dose: 500 mg Documented by: Calcium Carbonate (Calcium Carbonate 750 Mg Tab.Chew) 750 mg PO Q4H PRN PRN Reason: Heartburn Last Admin: 12/02/21 20:19 Dose: 750 mg Documented by: Capsaicin (Capsaicin 0.025% Cream 60 Gm Tube) 1 appl TOPICAL QID PRN; Protocol PRN Reason: leg pain Last Admin: 12/09/21 09:36 Dose: 1 appl Documented by: Clotrimazole (Clotrimazole 1 % Cream 15 Gm Tube) 1 appl TOPICAL BID YAYA; Protocol Last Admin: 12/10/21 09:08 Dose: Not Given Documented by: [place] Butter/Zinc Oxide ([place] Butter/Zinc Oxide Supp.Rect) 1 supp [place] BEDTIME PRN PRN Reason: hemorrhoid pain Last Admin: 09/13/21 21:15 Dose: 1 supp Documented by: Cyanocobalamin (Cyanocobalamin (Vitamin B-12) 100 Mcg Tablet) 100 mcg PO DAILY [facility] Last Admin: 12/10/21 08:57 Dose: 100 mcg Documented by: Dibucaine (Dibucaine 1 % Oint 28 Gm Tube) 1 appl TOPICAL QID PRN; Protocol PRN Reason: Hemorrhoids Last Admin: 12/09/21 09:37 Dose: 1 appl Documented by: Diclofenac Sodium (Diclofenac Sodium Delayed Rel 50 Mg Tablet.) 50 mg PO BID [facility] Last Admin: 12/10/21 08:58 Dose: 50 mg Documented by: Docusate Sodium (Docusate Sodium 100 Mg Capsule) 100 mg PO BID [facility] Last Admin: 12/10/21 08:57 Dose: 100 mg Documented by: Duloxetine HCl (Duloxetine Hcl 20 Mg Capsule.) 40 mg PO DAILY [facility] Last Admin: 12/10/21 08:56 Dose: 40 mg Documented by: Gabapentin (Gabapentin 400 Mg Capsule) 800 mg PO TID [facility] Last Admin: 12/10/21 08:56 Dose: 800 mg Documented by: Gabapentin (Gabapentin 100 Mg Capsule) 100 mg PO TID PRN PRN Reason: neuropathic pain Last Admin: 12/08/21 21:06 Dose: 100 mg Documented by: Lamotrigine (Lamotrigine 25 Mg Tablet) 50 mg PO BEDTIME [facility] Last Admin: 12/09/21 19:53 Dose: 50 mg Documented by: Levothyroxine Sodium (Levothyroxine Sodium 25 Mcg Tablet) 12.5 mcg PO DAILY@0600 [facility] Last Admin: 12/10/21 06:01 Dose: 12.5 mcg Documented by: Lorazepam (Lorazepam 1 Mg Tablet) 1 mg PO BEDTIME [facility] Last Admin: 12/09/21 19:52 Dose: 1 mg Documented by: Multi-Ingred Cream/Lotion/Oil/Oint (Mineral Oil/Petrolatum,White 106 Gm Tube) 1 appl TOPICAL BID [facility]; Protocol Last Admin: 12/10/21 09:08 Dose: Not Given Documented by: Nicotine (Nicotine 14 Mg Patch.Td24) 14 mg TRANSDERMA DAILY [facility] Last Admin: 12/10/21 09:08 Dose: Not Given Documented by: Nicotine Polacrilex (Nicotine Polacrilex 2 Mg Gum) 4 mg BUCCAL Q1H PRN PRN Reason: Nicotine Cravings Last Admin: 12/10/21 09:08 Dose: 4 mg Documented by: Nf Medication ( Similasan Complete Eye Relief 2 Drop) 2 drop EYE-BOTH BID PRN PRN Reason: eye dryness Last Admin: 12/10/21 09:07 Dose: 2 drop Documented by: Omeprazole (Omeprazole 20 Mg Capsule.) 20 mg PO BID@0630,1630 [facility] Last Admin: 12/10/21 06:02 Dose: 20 mg Documented by: Polyethylene Glycol (Polyethylene Glycol 3350 17 Gm Powd.Pack) 17 gm PO DAILY PRN PRN Reason: Constipation Last Admin: 12/10/21 09:07 Dose: 17 gm Documented by: Psyllium Hydrophilic Mucilloid (Psyllium Seed 3.4 Gm Powd.Pack) 3.4 gm PO DAILY [facility] Last Admin: 12/10/21 08:59 Dose: 3.4 gm Documented by: Quetiapine Fumarate (Quetiapine Fumarate 100 Mg Tablet) 100 mg PO Q6H PRN PRN Reason: anxiety/restlessness Quetiapine Fumarate (Quetiapine Fumarate 100 Mg Tablet) 500 mg PO BEDTIME [facility] Last Admin: 12/09/21 19:52 Dose: 500 mg Documented by: Ropinirole HCl (Ropinirole Hcl 2 Mg Tablet) 2 mg PO DAILY@1900 [facility] Last Admin: 12/09/21 18:29 Dose: 2 mg Documented by: Senna/Docusate Sodium (Sennosides/Docusate Sodium Tablet) 1 tab PO BID [facility] Last Admin: 12/10/21 08:57 Dose: 1 tab Documented by: Simethicone (Simethicone 80 Mg Tab.Chew) 80 mg PO QIDWMHS PRN PRN Reason: bloating Last Admin: 12/08/21 21:05 Dose: 80 mg Documented by: Sodium Chloride (Sodium Chloride 0.65 % Nasal 44 Ml Sprbtl) 1 spray NOSTRIL-B Q1H PRN PRN Reason: congestion Last Admin: 12/10/21 08:55 Dose: 1 spray Documented by: Trazodone HCl (Trazodone Hcl 25 Mg Halftab) 75 mg PO BEDTIME [facility] Last Admin: 12/09/21 19:52 Dose: 75 mg Documented by: Trolamine Salicylate/Aloe Vera (Trolamine Salicylate 10%/Aloe Cream 35.4 Gm) 1 appl TOPICAL QID PRN PRN Reason: leg pain Trolamine Salicylate/Aloe Vera (Trolamine Salicylate 10%/Aloe Cream 35.4 Gm) 1 appl TOPICAL QID PRN PRN Reason: mild-mod pain Last Admin: 11/21/21 16:20 Dose: 1 appl Documented by: Vitamin D (Cholecalciferol (Vitamin D3) 25 Mcg Tablet) 25 mcg PO DAILY [facility] Last Admin: 12/10/21 08:57 Dose: 25 mcg Documented by: Allergies Allergies Allergy/AdvReac Type Severity Reaction Status Date / Time aripiprazole [From Abilify] Allergy Unknown Involuntary Verified 08/19/21 07:20 Spasms chlorpromazine Allergy Unknown Nausea and Verified 08/19/21 07:20 [From Thorazine] Vomiting haloperidol [From Haldol] Allergy Unknown Involuntary Verified 08/19/21 07:20 Spasms olanzapine [From Zyprexa] Allergy Unknown Involuntary Verified 08/19/21 07:20 Spasms paliperidone [From Invega] Allergy Unknown Hallucinati Verified 08/19/21 07:20 ons risperidone Allergy Unknown Involuntary Verified 08/19/21 07:20 Spasms Assessment & Plan Assessment & Plan (1) Schizoaffective disorder, bipolar type: Status: Acute Code(s): F25.0 - Schizoaffective disorder, bipolar type (2) Lumbar radiculopathy: Status: Acute Code(s): M54.16 - Radiculopathy, lumbar region (3) Hip pain, left: Status: Acute Code(s): M25.552 - Pain in left hip Plan 11/05/21: Continue current plan. Support in transition 11/06/2021: Continue current regimen and plans. No changes were made today 11/07/2021: Continue current plans and regimen. No changes were made today 11/08/21: Discontinue a.m. Seroquel 100 mg Increase p.m. Seroquel to 700 mg from 600 mg, consolidating dosages per pt request to improve mgt of daytime sedation. 11/09/21: No changes today Throat culture, COVID-19 testing, throat lozenges prn 11/10/21: R/O CKD sx. Nephrology consultation. Discontinue [place] Lamictal 25 mg hs Encourage fluids Synthroid 12.5 mcg daily 11/11/21: No regime changes today. Continue to monitor 11/12/21: Discontinue atarax, lidocaine Requip, a.m. dose, Lidocaine per pt request Change prn Seroquel to 100 mg po q 6 h prn from 200 mg po q 6h prn Continue to monitor physical symptoms 11/13/21: No medication changes 11/14/21: increase ativan to 1 mg QHS for sleep, anxiety 11/15/21: No medication changes today 11/17/21: Support pt in transition to community. 11/18/21: Continue current plan 11/19/21: Continue current plan 11/20: Increase Cymbalta to 40 mg daily 11/21 start Voltaren 50 mg BID. No change in psychotropics. 11/22/21: Decrease Seroquel by 100 mg daily at HS Increase Lamictal to 50 mg daily CBCD, CMP Support through this process of transition. 11/23/21 Declined labs today. Re-ordered for 11/24. Support through transitional process. 11/24/21 Decrease Seroquel to 500 mg HS Magnesium Citrate x 1 prn constipation Eucerin Cream to feet. 11/25/21 Continue current plan of care Support in transition. 11/26/21 K+ level 11/27 Continue current plan of care Support in transition. 11/27 no changes to current plan 11/28 no changes to current plan 11/29 Continue current plan 11/30/21: Continue current plan. Support in transition. 12/02/21: No changes in current plan. Support in transition. 12/03/21: Continue current plan. 12/04/21: Continue current plan. 12/05/21: Continue current plan. 12/06/21: Continue current plan. 12/07/21: Urine culture. Team reports pt will be returning to [place] to respite care when a bed becomes available 12/09/21: Dicharge 12/14 to [facility] respite. Prescriber order forms completed for [facility], Letter to the court to address animal cruelty charge writter and approved by pt. 12/10/ continue per primary treatment team. mag citrate for constipation ordered. I spent ___25___ minutes with the patient and/or on the patient floor today, greater than?50% of which was spent counseling/coordinating care. Reason for contiued inpatient stay Substantial Risk for: stable for discharge
[2021-12-10] MEDS: Magnesium Citrate 300 ML SOLUTION PO (11:49)
[2021-12-10] MEDS: rOPINIRole HCL 2 MG TABLET PO (19:28)
[2021-12-10 20:00] VITALS: BP 119/81; PULSE 82; RESP 17; TEMP 36.6; O2SAT 97
[2021-12-10] MEDS: lamoTRIgine 25 MG TABLET 50 MG PO (20:30)
[2021-12-10] MEDS: LORazepam 1 MG TABLET PO (20:31)
[2021-12-10] MEDS: traZODone HCL 25 MG HALFTAB 75 MG PO (20:32)
[2021-12-10] MEDS: QUEtiapine Fumarate 100 MG TABLET 500 MG PO (20:32)
[2021-12-11 06:00] VITALS: BP 98/55; PULSE 76; TEMP 36.5; O2SAT 96
[2021-12-11] MEDS: Levothyroxine Sodium 25 MCG TABLET 12.5 MCG PO (06:20)
[2021-12-11] MEDS: Omeprazole 20 MG CAPSULE.DR PO ×2 (06:20→17:53)
--- NOTE | 2021-12-11 08:36 | HO.PSYCHPN ---
Subjective Subjective Date of Service: 12/11/21 Reason For Visit: Bipolar, Schizoaffective Interim History: 12/10:Per nursing, pt has been visible on the unit, attends and appropriately participates in groups. Pt eating and sleeping well. Pt reports looking forward to be discharged next week. She reports mood okay. She reports some frustration as to moving back to [facility] and not staying in this area. She denies SI/HI. no overt delusional content reported or noted. No VH/AH. No SI. Pt reports constipation- no BM in 6 days, asks for mag citrate- which was ordered. no abdominal pain. 12/11: Pleasant, in bed, reading a book. Reports no complaints. DC to [place] on . Was hoping to stay in the area. Review of Systems Review of Systems Anxiety/depression Yes all other systems are reviewed and are negative Reports sore throat Cardiovascular: Reports chest pain and Reports dyspnea Respiratory: Reports dyspnea Gastrointestinal: Reports other (hemorrhoid pain) Musculoskeletal: Reports back pain, Reports myalgias, Reports arthralgias, Reports stiffness and Reports other (hip pain) Reports behavioral changes, Reports confusion and Reports memory loss Psychiatric: Reports no additional psychiatric complaints, Reports abnormal sleep pattern, Reports anxiety, Reports behavioral changes, Reports change in appetite, Reports confusion, Reports depression, Reports difficulty concentrating, Reports auditory hallucinations, Reports hopelessness, Reports irritability, Reports anhedonia, Reports memory loss, Reports mood swings, Reports paranoia, Reports visual hallucinations, Reports hallucinations, Reports homicidal ideation (denies), Reports suicidal ideation (denies) and Reports other (guilt and remorse regarding behavioral sx during vasquez) Mental Status Exam Mental Status Exam Narrative: Patient Appearance:?Appropriate Patient Orientation:?Person, Place, Time and Situation Level of Consciousness:?Alert Patient Behavior:?Talkative, Cooperative and Good Eye Contact Mood Description:?fine Affect Description:?congruent Patient Cognition Impaired:?No Ability to Follow Directions:?Good Speech Pattern:?Spontaneous Speech Memory Description:?Intact Delusions:?Not Present Perceptual Disturbances:?none Thought Process:?goal oriented; can be circumstantial Thought Content dispo Judgement:?Fair Patient Appearance: Appropriate Patient Orientation: Person, Place, Time and Situation Level of Consciousness: Alert Patient Behavior: Talkative and Good Eye Contact Mood Description: Anxious and Apprehensive Affect Description: Anxious, Flat and Apprehensive Patient Cognition Impaired: No Ability to Follow Directions: Good Speech Pattern: Spontaneous Speech Memory Description: Intact Diagnostics Vital Signs (24Hr): Vital Signs - 24 hr 12/10/21 09:00 12/10/21 20:00 Temperature 97.7 F 97.8 F Pulse Rate 80 82 Respiratory Rate 16 17 Blood Pressure 122/81 119/81 Pulse Oximetry 97 97 BMI result Body Mass Index 38.7 Labs Results: 11/24/21 08:08 11/24/21 08:08 Imaging Radiology Impressions: ITS Impressions Abdomen Ultrasound 09/01/21 08:59 IMPRESSION: Slightly echogenic liver. Limited evaluation of the gallbladder as the patient has recently eaten. No gallstone seen. Limited visualization of the pancreas. Hip X-Ray 09/16/21 14:47 IMPRESSION: Moderate to severe left hip arthritis. Medications Medications Current Medications Acetaminophen (Acetaminophen 325 Mg Tablet) 975 mg PO Q6H PRN PRN Reason: Headache/Pain Mild Scale (1-3) Last Admin: 12/08/21 21:06 Dose: 975 mg Documented by: Amlodipine Besylate (Amlodipine Besylate 2.5 Mg Tablet) 2.5 mg PO DAILY YAYA; Protocol Last Admin: 12/10/21 08:58 Dose: 2.5 mg Documented by: Artificial Tears (Artificial Tears 15 Ml Drops) 2 drop EYE-BOTH Q4H PRN PRN Reason: Dry Eyes Last Admin: 11/19/21 08:54 Dose: 2 drop Documented by: Artificial Tears (Artificial Tears 15 Ml Drops) 2 drop EYE-BOTH Q4H PRN PRN Reason: dry eyes Benzocaine (Benzocaine 20 % Oral Gel 9 Gm Tube) 1 appl MUCOUS MEM QID PRN; Protocol PRN Reason: Mouth Sore Pain Last Admin: 08/31/21 03:05 Dose: 1 appl Documented by: Benzocaine (Throat Lozenge, Medicated Lozenge) 1 lozenge MUCOUS MEM Q2H PRN PRN Reason: Sore Throat Calcium Carbonate (Calcium Carbonate 500 Mg Tablet) 500 mg PO DAILY YAYA Last Admin: 12/10/21 08:58 Dose: 500 mg Documented by: Calcium Carbonate (Calcium Carbonate 750 Mg Tab.Chew) 750 mg PO Q4H PRN PRN Reason: Heartburn Last Admin: 12/02/21 20:19 Dose: 750 mg Documented by: Capsaicin (Capsaicin 0.025% Cream 60 Gm Tube) 1 appl TOPICAL QID PRN; Protocol PRN Reason: leg pain Last Admin: 12/09/21 09:36 Dose: 1 appl Documented by: Clotrimazole (Clotrimazole 1 % Cream 15 Gm Tube) 1 appl TOPICAL BID YAYA; Protocol Last Admin: 12/10/21 21:49 Dose: Not Given Documented by: Grand Chain Butter/Zinc Oxide (Grand Chain Butter/Zinc Oxide Supp.Rect) 1 supp WI BEDTIME PRN PRN Reason: hemorrhoid pain Last Admin: 09/13/21 21:15 Dose: 1 supp Documented by: Cyanocobalamin (Cyanocobalamin (Vitamin B-12) 100 Mcg Tablet) 100 mcg PO DAILY [facility] Last Admin: 12/10/21 08:57 Dose: 100 mcg Documented by: Dibucaine (Dibucaine 1 % Oint 28 Gm Tube) 1 appl TOPICAL QID PRN; Protocol PRN Reason: Hemorrhoids Last Admin: 12/09/21 09:37 Dose: 1 appl Documented by: Diclofenac Sodium (Diclofenac Sodium Delayed Rel 50 Mg Tablet.) 50 mg PO BID [facility] Last Admin: 12/10/21 20:35 Dose: 50 mg Documented by: Docusate Sodium (Docusate Sodium 100 Mg Capsule) 100 mg PO BID [facility] Last Admin: 12/10/21 20:31 Dose: 100 mg Documented by: Duloxetine HCl (Duloxetine Hcl 20 Mg Capsule.) 40 mg PO DAILY [facility] Last Admin: 12/10/21 08:56 Dose: 40 mg Documented by: Gabapentin (Gabapentin 400 Mg Capsule) 800 mg PO TID [facility] Last Admin: 12/10/21 20:30 Dose: 800 mg Documented by: Gabapentin (Gabapentin 100 Mg Capsule) 100 mg PO TID PRN PRN Reason: neuropathic pain Last Admin: 12/08/21 21:06 Dose: 100 mg Documented by: Lamotrigine (Lamotrigine 25 Mg Tablet) 50 mg PO BEDTIME [facility] Last Admin: 12/10/21 20:30 Dose: 50 mg Documented by: Levothyroxine Sodium (Levothyroxine Sodium 25 Mcg Tablet) 12.5 mcg PO DAILY@0600 [facility] Last Admin: 12/11/21 06:20 Dose: 12.5 mcg Documented by: Lorazepam (Lorazepam 1 Mg Tablet) 1 mg PO BEDTIME [facility] Last Admin: 12/10/21 20:31 Dose: 1 mg Documented by: Multi-Ingred Cream/Lotion/Oil/Oint (Mineral Oil/Petrolatum,White 106 Gm Tube) 1 appl TOPICAL BID [facility]; Protocol Last Admin: 12/10/21 21:50 Dose: Not Given Documented by: Nicotine (Nicotine 14 Mg Patch.Td24) 14 mg TRANSDERMA DAILY [facility] Last Admin: 12/10/21 09:08 Dose: Not Given Documented by: Nicotine Polacrilex (Nicotine Polacrilex 2 Mg Gum) 4 mg BUCCAL Q1H PRN PRN Reason: Nicotine Cravings Last Admin: 12/10/21 19:32 Dose: 4 mg Documented by: Nf Medication ( Similasan Complete Eye Relief 2 Drop) 2 drop EYE-BOTH BID PRN PRN Reason: eye dryness Last Admin: 12/10/21 09:07 Dose: 2 drop Documented by: Omeprazole (Omeprazole 20 Mg Capsule.Dr) 20 mg PO BID@0630,1630 [facility] Last Admin: 12/11/21 06:20 Dose: 20 mg Documented by: Polyethylene Glycol (Polyethylene Glycol 3350 17 Gm Powd.Pack) 17 gm PO DAILY PRN PRN Reason: Constipation Last Admin: 12/10/21 09:07 Dose: 17 gm Documented by: Psyllium Hydrophilic Mucilloid (Psyllium Seed 3.4 Gm Powd.Pack) 3.4 gm PO DAILY [facility] Last Admin: 12/10/21 08:59 Dose: 3.4 gm Documented by: Quetiapine Fumarate (Quetiapine Fumarate 100 Mg Tablet) 100 mg PO Q6H PRN PRN Reason: anxiety/restlessness Quetiapine Fumarate (Quetiapine Fumarate 100 Mg Tablet) 500 mg PO BEDTIME [facility] Last Admin: 12/10/21 20:32 Dose: 500 mg Documented by: Ropinirole HCl (Ropinirole Hcl 2 Mg Tablet) 2 mg PO DAILY@1900 [facility] Last Admin: 12/10/21 19:28 Dose: 2 mg Documented by: Senna/Docusate Sodium (Sennosides/Docusate Sodium Tablet) 1 tab PO BID [facility] Last Admin: 12/10/21 20:35 Dose: 1 tab Documented by: Simethicone (Simethicone 80 Mg Tab.Chew) 80 mg PO QIDWMHS PRN PRN Reason: bloating Last Admin: 12/08/21 21:05 Dose: 80 mg Documented by: Sodium Chloride (Sodium Chloride 0.65 % Nasal 44 Ml Sprbtl) 1 spray NOSTRIL-B Q1H PRN PRN Reason: congestion Last Admin: 12/10/21 08:55 Dose: 1 spray Documented by: Trazodone HCl (Trazodone Hcl 25 Mg Halftab) 75 mg PO BEDTIME YAYA Last Admin: 12/10/21 20:32 Dose: 75 mg Documented by: Trolamine Salicylate/Aloe Vera (Trolamine Salicylate 10%/Aloe Cream 35.4 Gm) 1 appl TOPICAL QID PRN PRN Reason: leg pain Trolamine Salicylate/Aloe Vera (Trolamine Salicylate 10%/Aloe Cream 35.4 Gm) 1 appl TOPICAL QID PRN PRN Reason: mild-mod pain Last Admin: 11/21/21 16:20 Dose: 1 appl Documented by: Vitamin D (Cholecalciferol (Vitamin D3) 25 Mcg Tablet) 25 mcg PO DAILY [facility] Last Admin: 12/10/21 08:57 Dose: 25 mcg Documented by: Allergies Allergies Allergy/AdvReac Type Severity Reaction Status Date / Time aripiprazole [From Abilify] Allergy Unknown Involuntary Verified 08/19/21 07:20 Spasms chlorpromazine Allergy Unknown Nausea and Verified 08/19/21 07:20 [From Thorazine] Vomiting haloperidol [From Haldol] Allergy Unknown Involuntary Verified 08/19/21 07:20 Spasms olanzapine [From Zyprexa] Allergy Unknown Involuntary Verified 08/19/21 07:20 Spasms paliperidone [From Invega] Allergy Unknown Hallucinati Verified 08/19/21 07:20 ons risperidone Allergy Unknown Involuntary Verified 08/19/21 07:20 Spasms Assessment & Plan Assessment & Plan (1) Schizoaffective disorder, bipolar type: Status: Acute Code(s): F25.0 - Schizoaffective disorder, bipolar type (2) Lumbar radiculopathy: Status: Acute Code(s): M54.16 - Radiculopathy, lumbar region (3) Hip pain, left: Status: Acute Code(s): M25.552 - Pain in left hip Plan 11/05/21: Continue current plan. Support in transition 11/06/2021: Continue current regimen and plans. No changes were made today 11/07/2021: Continue current plans and regimen. No changes were made today 11/08/21: Discontinue a.m. Seroquel 100 mg Increase p.m. Seroquel to 700 mg from 600 mg, consolidating dosages per pt request to improve mgt of daytime sedation. 11/09/21: No changes today Throat culture, COVID-19 testing, throat lozenges prn 11/10/21: R/O CKD sx. Nephrology consultation. Discontinue Benavides Lamictal 25 mg hs Encourage fluids Synthroid 12.5 mcg daily 11/11/21: No regime changes today. Continue to monitor 11/12/21: Discontinue atarax, lidocaine Requip, a.m. dose, Lidocaine per pt request Change prn Seroquel to 100 mg po q 6 h prn from 200 mg po q 6h prn Continue to monitor physical symptoms 11/13/21: No medication changes 11/14/21: increase ativan to 1 mg QHS for sleep, anxiety 11/15/21: No medication changes today 11/17/21: Support pt in transition to community. 11/18/21: Continue current plan 11/19/21: Continue current plan 11/20: Increase Cymbalta to 40 mg daily 11/21 start Voltaren 50 mg BID. No change in psychotropics. 11/22/21: Decrease Seroquel by 100 mg daily at HS Increase Lamictal to 50 mg daily CBCD, CMP Support through this process of transition. 11/23/21 Declined labs today. Re-ordered for 11/24. Support through transitional process. 11/24/21 Decrease Seroquel to 500 mg HS Magnesium Citrate x 1 prn constipation Eucerin Cream to feet. 11/25/21 Continue current plan of care Support in transition. 11/26/21 K+ level 11/27 Continue current plan of care Support in transition. 11/27 no changes to current plan 11/28 no changes to current plan 11/29 Continue current plan 11/30/21: Continue current plan. Support in transition. 12/02/21: No changes in current plan. Support in transition. 12/03/21: Continue current plan. 12/04/21: Continue current plan. 12/05/21: Continue current plan. 12/06/21: Continue current plan. 12/07/21: Urine culture. Team reports pt will be returning to [place] to respite care when a bed becomes available 12/09/21: Dicharge 12/14 to [facility] respite. Prescriber order forms completed for [facility], Letter to the court to address animal cruelty charge writter and approved by pt. 12/10/ per primary treatment team. mag citrate for constipation ordered. 12/11: Ct Rx plan. SEAN Doss to [place] I spent minutes with the patient and/or on the patient floor today, greater than?50% of which was spent counseling/coordinating care. Reason for contiued inpatient stay Substantial Risk for: inability to function
[2021-12-11] MEDS: Mineral Oil/Petrolatum,White 106 GM Tube 1 APPL TOPICAL (09:29)
[2021-12-11] MEDS: Sodium Chloride 0.65 % Nasal 44 ML SPRBTL 1 SPRAY NOSTRIL-B ×2 (09:30→20:19)
[2021-12-11] MEDS: polyethylene glycoL 3350 17 GM POWD.PACK PO (09:31)
[2021-12-11] MEDS: Diclofenac Sodium Delayed Rel 50 MG TABLET.DR PO ×2 (09:32→22:04)
[2021-12-11] MEDS: Sennosides/Docusate Sodium TABLET 1 TAB PO ×2 (09:32→20:20)
[2021-12-11] MEDS: DULoxetine HCl 20 MG CAPSULE.DR 40 MG PO (09:32)
[2021-12-11] MEDS: Cholecalciferol (Vitamin D3) 25 MCG TABLET PO (09:32)
[2021-12-11] MEDS: amLODIPine Besylate 2.5 MG TABLET PO (09:33)
[2021-12-11] MEDS: Docusate Sodium 100 MG CAPSULE PO ×2 (09:33→22:03)
[2021-12-11] MEDS: Cyanocobalamin (Vitamin B-12) 100 MCG TABLET PO (09:33)
[2021-12-11] MEDS: Capsaicin 0.025% Cream 60 GM TUBE 1 APPL TOPICAL (09:33)
[2021-12-11] MEDS: Gabapentin 400 MG CAPSULE 800 MG PO ×3 (09:33→22:04)
[2021-12-11] MEDS: Nicotine Polacrilex 2 MG GUM 4 MG BUCCAL ×3 (14:18→20:29)
[2021-12-11] MEDS: rOPINIRole HCL 2 MG TABLET PO (17:53)
[2021-12-11 19:50] VITALS: BP 146/99; PULSE 85; TEMP 36.3; O2SAT 98
[2021-12-11] MEDS: traZODone HCL 25 MG HALFTAB 75 MG PO (20:19)
[2021-12-11] MEDS: LORazepam 1 MG TABLET PO (20:20)
[2021-12-11] MEDS: Simethicone 80 MG TAB.CHEW PO (20:20)
[2021-12-11] MEDS: QUEtiapine Fumarate 100 MG TABLET 500 MG PO (20:20)
[2021-12-11] MEDS: Acetaminophen 325 MG TABLET 975 MG PO (20:29)
[2021-12-11] MEDS: lamoTRIgine 25 MG TABLET 50 MG PO (22:04)
--- NOTE | 2021-12-12 05:08 | HO.PSYCHPN ---
Subjective Subjective Date of Service: 12/12/21 Reason For Visit: Bipolar, Schizoaffective Interim History: 12/10:Per nursing, pt has been visible on the unit, attends and appropriately participates in groups. Pt eating and sleeping well. Pt reports looking forward to be discharged next week. She reports mood okay. She reports some frustration as to moving back to [facility] and not staying in this area. She denies SI/HI. no overt delusional content reported or noted. No VH/AH. No SI. Pt reports constipation- no BM in 6 days, asks for mag citrate- which was ordered. no abdominal pain. 12/11: Pleasant, in bed, reading a book. Reports no complaints. DC to [place] on . Was hoping to stay in the area. 12/12: Pleasant. No complaints. Status Quo Review of Systems Review of Systems Anxiety/depression Yes all other systems are reviewed and are negative Reports sore throat Cardiovascular: Reports chest pain and Reports dyspnea Respiratory: Reports dyspnea Gastrointestinal: Reports other (hemorrhoid pain) Musculoskeletal: Reports back pain, Reports myalgias, Reports arthralgias, Reports stiffness and Reports other (hip pain) Reports behavioral changes, Reports confusion and Reports memory loss Psychiatric: Reports no additional psychiatric complaints, Reports abnormal sleep pattern, Reports anxiety, Reports behavioral changes, Reports change in appetite, Reports confusion, Reports depression, Reports difficulty concentrating, Reports auditory hallucinations, Reports hopelessness, Reports irritability, Reports anhedonia, Reports memory loss, Reports mood swings, Reports paranoia, Reports visual hallucinations, Reports hallucinations, Reports homicidal ideation (denies), Reports suicidal ideation (denies) and Reports other (guilt and remorse regarding behavioral sx during vasquez) Mental Status Exam Mental Status Exam Narrative: Patient Appearance:?Appropriate Patient Orientation:?Person, Place, Time and Situation Level of Consciousness:?Alert Patient Behavior:?Talkative, Cooperative and Good Eye Contact Mood Description:?fine Affect Description:?congruent Patient Cognition Impaired:?No Ability to Follow Directions:?Good Speech Pattern:?Spontaneous Speech Memory Description:?Intact Delusions:?Not Present Perceptual Disturbances:?none Thought Process:?goal oriented; can be circumstantial Thought Content dispo Judgement:?Fair Patient Appearance: Appropriate Patient Orientation: Person, Place, Time and Situation Level of Consciousness: Alert Patient Behavior: Talkative and Good Eye Contact Mood Description: Anxious and Apprehensive Affect Description: Anxious, Flat and Apprehensive Patient Cognition Impaired: No Ability to Follow Directions: Good Speech Pattern: Spontaneous Speech Memory Description: Intact Diagnostics Vital Signs (24Hr): Vital Signs - 24 hr 12/11/21 06:00 12/11/21 19:50 Temperature 97.7 F 97.4 F Pulse Rate 76 85 Blood Pressure 98/55 L 146/99 H Pulse Oximetry 96 98 BMI result Body Mass Index 38.7 Labs Results: 11/24/21 08:08 11/24/21 08:08 Imaging Radiology Impressions: ITS Impressions Abdomen Ultrasound 09/01/21 08:59 IMPRESSION: Slightly echogenic liver. Limited evaluation of the gallbladder as the patient has recently eaten. No gallstone seen. Limited visualization of the pancreas. Hip X-Ray 09/16/21 14:47 IMPRESSION: Moderate to severe left hip arthritis. Medications Medications Current Medications Acetaminophen (Acetaminophen 325 Mg Tablet) 975 mg PO Q6H PRN PRN Reason: Headache/Pain Mild Scale (1-3) Last Admin: 12/11/21 20:29 Dose: 975 mg Documented by: Amlodipine Besylate (Amlodipine Besylate 2.5 Mg Tablet) 2.5 mg PO DAILY [facility]; Protocol Last Admin: 12/11/21 09:33 Dose: 2.5 mg Documented by: Artificial Tears (Artificial Tears 15 Ml Drops) 2 drop EYE-BOTH Q4H PRN PRN Reason: Dry Eyes Last Admin: 11/19/21 08:54 Dose: 2 drop Documented by: Artificial Tears (Artificial Tears 15 Ml Drops) 2 drop EYE-BOTH Q4H PRN PRN Reason: dry eyes Benzocaine (Benzocaine 20 % Oral Gel 9 Gm Tube) 1 appl MUCOUS MEM QID PRN; Protocol PRN Reason: Mouth Sore Pain Last Admin: 08/31/21 03:05 Dose: 1 appl Documented by: Benzocaine (Throat Lozenge, Medicated Lozenge) 1 lozenge MUCOUS MEM Q2H PRN PRN Reason: Sore Throat Calcium Carbonate (Calcium Carbonate 500 Mg Tablet) 500 mg PO DAILY [facility]A Last Admin: 12/11/21 09:33 Dose: 500 mg Documented by: Calcium Carbonate (Calcium Carbonate 750 Mg Tab.Chew) 750 mg PO Q4H PRN PRN Reason: Heartburn Last Admin: 12/02/21 20:19 Dose: 750 mg Documented by: Capsaicin (Capsaicin 0.025% Cream 60 Gm Tube) 1 appl TOPICAL QID PRN; Protocol PRN Reason: leg pain Last Admin: 12/11/21 09:33 Dose: 1 appl Documented by: Clotrimazole (Clotrimazole 1 % Cream 15 Gm Tube) 1 appl TOPICAL BID [facility]; Protocol Last Admin: 12/11/21 22:00 Dose: Not Given Documented by: [place] Butter/Zinc Oxide ([place] Butter/Zinc Oxide Supp.Rect) 1 supp [place] BEDTIME PRN PRN Reason: hemorrhoid pain Last Admin: 09/13/21 21:15 Dose: 1 supp Documented by: Cyanocobalamin (Cyanocobalamin (Vitamin B-12) 100 Mcg Tablet) 100 mcg PO DAILY [facility] Last Admin: 12/11/21 09:33 Dose: 100 mcg Documented by: Dibucaine (Dibucaine 1 % Oint 28 Gm Tube) 1 appl TOPICAL QID PRN; Protocol PRN Reason: Hemorrhoids Last Admin: 12/09/21 09:37 Dose: 1 appl Documented by: Diclofenac Sodium (Diclofenac Sodium Delayed Rel 50 Mg Tablet.) 50 mg PO BID [facility] Last Admin: 12/11/21 22:04 Dose: 50 mg Documented by: Docusate Sodium (Docusate Sodium 100 Mg Capsule) 100 mg PO BID [facility] Last Admin: 12/11/21 22:03 Dose: 100 mg Documented by: Duloxetine HCl (Duloxetine Hcl 20 Mg Capsule.) 40 mg PO DAILY [facility] Last Admin: 12/11/21 09:32 Dose: 40 mg Documented by: Gabapentin (Gabapentin 400 Mg Capsule) 800 mg PO TID [facility] Last Admin: 12/11/21 22:04 Dose: 800 mg Documented by: Gabapentin (Gabapentin 100 Mg Capsule) 100 mg PO TID PRN PRN Reason: neuropathic pain Last Admin: 12/08/21 21:06 Dose: 100 mg Documented by: Lamotrigine (Lamotrigine 25 Mg Tablet) 50 mg PO BEDTIME [facility] Last Admin: 12/11/21 22:04 Dose: 50 mg Documented by: Levothyroxine Sodium (Levothyroxine Sodium 25 Mcg Tablet) 12.5 mcg PO DAILY@0600 [facility] Last Admin: 12/11/21 06:20 Dose: 12.5 mcg Documented by: Lorazepam (Lorazepam 1 Mg Tablet) 1 mg PO BEDTIME [facility] Last Admin: 12/11/21 20:20 Dose: 1 mg Documented by: Multi-Ingred Cream/Lotion/Oil/Oint (Mineral Oil/Petrolatum,White 106 Gm Tube) 1 appl TOPICAL BID [facility]; Protocol Last Admin: 12/11/21 22:12 Dose: Not Given Documented by: Nicotine (Nicotine 14 Mg Patch.Td24) 14 mg TRANSDERMA DAILY [facility] Last Admin: 12/11/21 09:34 Dose: Not Given Documented by: Nicotine Polacrilex (Nicotine Polacrilex 2 Mg Gum) 4 mg BUCCAL Q1H PRN PRN Reason: Nicotine Cravings Last Admin: 12/11/21 20:29 Dose: 4 mg Documented by: Nf Medication ( Similasan Complete Eye Relief 2 Drop) 2 drop EYE-BOTH BID PRN PRN Reason: eye dryness Last Admin: 12/11/21 20:19 Dose: 2 drop Documented by: Omeprazole (Omeprazole 20 Mg Capsule.Dr) 20 mg PO BID@0630,1630 [facility] Last Admin: 12/11/21 17:53 Dose: 20 mg Documented by: Polyethylene Glycol (Polyethylene Glycol 3350 17 Gm Powd.Pack) 17 gm PO DAILY PRN PRN Reason: Constipation Last Admin: 12/11/21 09:31 Dose: 17 gm Documented by: Psyllium Hydrophilic Mucilloid (Psyllium Seed 3.4 Gm Powd.Pack) 3.4 gm PO DAILY [facility] Last Admin: 12/11/21 09:31 Dose: 3.4 gm Documented by: Quetiapine Fumarate (Quetiapine Fumarate 100 Mg Tablet) 100 mg PO Q6H PRN PRN Reason: anxiety/restlessness Quetiapine Fumarate (Quetiapine Fumarate 100 Mg Tablet) 500 mg PO BEDTIME [facility] Last Admin: 12/11/21 20:20 Dose: 500 mg Documented by: Ropinirole HCl (Ropinirole Hcl 2 Mg Tablet) 2 mg PO DAILY@1900 [facility] Last Admin: 12/11/21 17:53 Dose: 2 mg Documented by: Senna/Docusate Sodium (Sennosides/Docusate Sodium Tablet) 1 tab PO BID [facility] Last Admin: 12/11/21 20:20 Dose: 1 tab Documented by: Simethicone (Simethicone 80 Mg Tab.Chew) 80 mg PO QIDWMHS PRN PRN Reason: bloating Last Admin: 12/11/21 20:20 Dose: 80 mg Documented by: Sodium Chloride (Sodium Chloride 0.65 % Nasal 44 Ml Sprbtl) 1 spray NOSTRIL-B Q1H PRN PRN Reason: congestion Last Admin: 12/11/21 20:19 Dose: 1 spray Documented by: Trazodone HCl (Trazodone Hcl 25 Mg Halftab) 75 mg PO BEDTIME [facility] Last Admin: 12/11/21 20:19 Dose: 75 mg Documented by: Trolamine Salicylate/Aloe Vera (Trolamine Salicylate 10%/Aloe Cream 35.4 Gm) 1 appl TOPICAL QID PRN PRN Reason: leg pain Trolamine Salicylate/Aloe Vera (Trolamine Salicylate 10%/Aloe Cream 35.4 Gm) 1 appl TOPICAL QID PRN PRN Reason: mild-mod pain Last Admin: 11/21/21 16:20 Dose: 1 appl Documented by: Vitamin D (Cholecalciferol (Vitamin D3) 25 Mcg Tablet) 25 mcg PO DAILY [facility] Last Admin: 12/11/21 09:32 Dose: 25 mcg Documented by: Allergies Allergies Allergy/AdvReac Type Severity Reaction Status Date / Time aripiprazole [From Abilify] Allergy Unknown Involuntary Verified 08/19/21 07:20 Spasms chlorpromazine Allergy Unknown Nausea and Verified 08/19/21 07:20 [From Thorazine] Vomiting haloperidol [From Haldol] Allergy Unknown Involuntary Verified 08/19/21 07:20 Spasms olanzapine [From Zyprexa] Allergy Unknown Involuntary Verified 08/19/21 07:20 Spasms paliperidone [From Invega] Allergy Unknown Hallucinati Verified 08/19/21 07:20 ons risperidone Allergy Unknown Involuntary Verified 08/19/21 07:20 Spasms Assessment & Plan Assessment & Plan (1) Schizoaffective disorder, bipolar type: Status: Acute Code(s): F25.0 - Schizoaffective disorder, bipolar type (2) Lumbar radiculopathy: Status: Acute Code(s): M54.16 - Radiculopathy, lumbar region (3) Hip pain, left: Status: Acute Code(s): M25.552 - Pain in left hip Plan 11/05/21: Continue current plan. Support in transition 11/06/2021: Continue current regimen and plans. No changes were made today 11/07/2021: Continue current plans and regimen. No changes were made today 11/08/21: Discontinue a.m. Seroquel 100 mg Increase p.m. Seroquel to 700 mg from 600 mg, consolidating dosages per pt request to improve mgt of daytime sedation. 11/09/21: No changes today Throat culture, COVID-19 testing, throat lozenges prn 11/10/21: R/O CKD sx. Nephrology consultation. Discontinue Dewar Lamictal 25 mg hs Encourage fluids Synthroid 12.5 mcg daily 11/11/21: No regime changes today. Continue to monitor 11/12/21: Discontinue atarax, lidocaine Requip, a.m. dose, Lidocaine per pt request Change prn Seroquel to 100 mg po q 6 h prn from 200 mg po q 6h prn Continue to monitor physical symptoms 11/13/21: No medication changes 11/14/21: increase ativan to 1 mg QHS for sleep, anxiety 11/15/21: No medication changes today 11/17/21: Support pt in transition to community. 11/18/21: Continue current plan 11/19/21: Continue current plan 11/20: Increase Cymbalta to 40 mg daily 11/21 start Voltaren 50 mg BID. No change in psychotropics. 11/22/21: Decrease Seroquel by 100 mg daily at HS Increase Lamictal to 50 mg daily [facility], CMP Support through this process of transition. 11/23/21 Declined labs today. Re-ordered for 11/24. Support through transitional process. 11/24/21 Decrease Seroquel to 500 mg HS Magnesium Citrate x 1 prn constipation Eucerin Cream to feet. 11/25/21 Continue current plan of care Support in transition. 11/26/21 K+ level 11/27 Continue current plan of care Support in transition. 11/27 no changes to current plan 11/28 no changes to current plan 11/29 Continue current plan 11/30/21: Continue current plan. Support in transition. 12/02/21: No changes in current plan. Support in transition. 12/03/21: Continue current plan. 12/04/21: Continue current plan. 12/05/21: Continue current plan. 12/06/21: Continue current plan. 12/07/21: Urine culture. Team reports pt will be returning to [place] to respite care when a bed becomes available 12/09/21: [facility] 12/14 to [facility] respite. Prescriber order forms completed for [facility], Letter to the court to address animal cruelty charge writter and approved by pt. 12/10/ continue per primary treatment team. mag citrate for constipation ordered. 12/11: Ct Rx plan. SEAN Doss to [place] 12/12 Ct plan. DC to [place] I spent minutes with the patient and/or on the patient floor today, greater than?50% of which was spent counseling/coordinating care. Reason for contiued inpatient stay Substantial Risk for: inability to function
[2021-12-12] MEDS: Omeprazole 20 MG CAPSULE.DR PO ×2 (06:06→16:07)
[2021-12-12] MEDS: Levothyroxine Sodium 25 MCG TABLET 12.5 MCG PO (06:06)
[2021-12-12 09:22] VITALS: BP 125/77; PULSE 73; TEMP 36.6; O2SAT 97
[2021-12-12] MEDS: Mineral Oil/Petrolatum,White 106 GM Tube 1 APPL TOPICAL (09:26)
[2021-12-12] MEDS: Capsaicin 0.025% Cream 60 GM TUBE 1 APPL TOPICAL (09:27)
[2021-12-12] MEDS: Sodium Chloride 0.65 % Nasal 44 ML SPRBTL 1 SPRAY NOSTRIL-B ×2 (09:27→19:57)
[2021-12-12] MEDS: Diclofenac Sodium Delayed Rel 50 MG TABLET.DR PO ×2 (09:29→19:57)
[2021-12-12] MEDS: Cholecalciferol (Vitamin D3) 25 MCG TABLET PO (09:29)
[2021-12-12] MEDS: Nicotine Polacrilex 2 MG GUM 4 MG BUCCAL ×5 (09:30→20:47)
[2021-12-12] MEDS: DULoxetine HCl 20 MG CAPSULE.DR 40 MG PO (09:30)
[2021-12-12] MEDS: Docusate Sodium 100 MG CAPSULE PO ×2 (09:30→20:45)
[2021-12-12] MEDS: Sennosides/Docusate Sodium TABLET 1 TAB PO ×2 (09:30→19:59)
[2021-12-12] MEDS: amLODIPine Besylate 2.5 MG TABLET PO (09:30)
[2021-12-12] MEDS: Cyanocobalamin (Vitamin B-12) 100 MCG TABLET PO (09:30)
[2021-12-12] MEDS: Gabapentin 400 MG CAPSULE 800 MG PO ×3 (09:30→19:59)
[2021-12-12] MEDS: Acetaminophen 325 MG TABLET 975 MG PO (09:30)
[2021-12-12] MEDS: polyethylene glycoL 3350 17 GM POWD.PACK PO (09:31)
[2021-12-12 16:05] VITALS: BP 119/73; PULSE 74; TEMP 36.7; O2SAT 96
[2021-12-12] MEDS: rOPINIRole HCL 2 MG TABLET PO (19:08)
[2021-12-12] MEDS: traZODone HCL 25 MG HALFTAB 75 MG PO (19:58)
[2021-12-12] MEDS: QUEtiapine Fumarate 100 MG TABLET 500 MG PO (19:58)
[2021-12-12] MEDS: lamoTRIgine 25 MG TABLET 50 MG PO (19:59)
[2021-12-12] MEDS: LORazepam 1 MG TABLET PO (19:59)
[2021-12-13] MEDS: Levothyroxine Sodium 25 MCG TABLET 12.5 MCG PO (05:57)
[2021-12-13] MEDS: Omeprazole 20 MG CAPSULE.DR PO ×2 (05:58→16:09)
[2021-12-13 08:00] VITALS: BP 135/65; PULSE 78; TEMP 36.8; O2SAT 96
[2021-12-13] MEDS: Diclofenac Sodium Delayed Rel 50 MG TABLET.DR PO ×2 (09:12→20:43)
[2021-12-13] MEDS: Nicotine Polacrilex 2 MG GUM 4 MG BUCCAL ×3 (09:13→21:02)
[2021-12-13] MEDS: Docusate Sodium 100 MG CAPSULE PO ×2 (09:13→20:44)
[2021-12-13] MEDS: DULoxetine HCl 20 MG CAPSULE.DR 40 MG PO (09:13)
[2021-12-13] MEDS: Sennosides/Docusate Sodium TABLET 1 TAB PO ×2 (09:13→20:44)
[2021-12-13] MEDS: Gabapentin 400 MG CAPSULE 800 MG PO ×3 (09:13→20:44)
[2021-12-13] MEDS: Cholecalciferol (Vitamin D3) 25 MCG TABLET PO (09:13)
[2021-12-13] MEDS: Mineral Oil/Petrolatum,White 106 GM Tube 1 APPL TOPICAL (09:14)
[2021-12-13] MEDS: Cyanocobalamin (Vitamin B-12) 100 MCG TABLET PO (09:14)
[2021-12-13] MEDS: amLODIPine Besylate 2.5 MG TABLET PO (09:14)
[2021-12-13] MEDS: Capsaicin 0.025% Cream 60 GM TUBE 1 APPL TOPICAL (09:15)
[2021-12-13] MEDS: polyethylene glycoL 3350 17 GM POWD.PACK PO (09:25)
--- NOTE | 2021-12-13 14:05 | P.PNPSI_ITS ---
Subjective Subjective Date of Service: 12/13/21 Reason For Visit: Bipolar, Schizoaffective Subjective Notes: Conditional Voluntary Interim History: Pt visible at times and attends assigned groups. No delusional content reported or noted. Pt presents with bright, non labile affect. She denies SI/HI. No behavioral concerns. Per nursing, pt eating and sleeping well. She is looking forward for discharge tomorrow to respite. Medication Compliance: Yes Side effects from medications: No Review of Systems Review of Systems Yes all other systems are reviewed and are negative Reports sore throat Cardiovascular: Reports chest pain and Reports dyspnea Respiratory: Reports dyspnea Gastrointestinal: Reports other (hemorrhoid pain) Musculoskeletal: Reports back pain, Reports myalgias, Reports arthralgias, Reports stiffness and Reports other (hip pain) Reports behavioral changes, Reports confusion and Reports memory loss Psychiatric: Reports no additional psychiatric complaints, Reports abnormal sleep pattern, Reports anxiety, Reports behavioral changes, Reports change in appetite, Reports confusion, Reports depression, Reports difficulty concentrating, Reports auditory hallucinations, Reports hopelessness, Reports irritability, Reports anhedonia, Reports memory loss, Reports mood swings, Reports paranoia, Reports visual hallucinations, Reports hallucinations, Reports homicidal ideation (denies), Reports suicidal ideation (denies) and Reports other (guilt and remorse regarding behavioral sx during vasquez) Mental Status Exam Mental Status Exam Patient Appearance: Appropriate Patient Orientation: Person, Place, Time and Situation Level of Consciousness: Alert Patient Behavior: Talkative and Good Eye Contact Mood Description: Anxious and Apprehensive Affect Description: Anxious, Flat and Apprehensive Patient Cognition Impaired: No Ability to Follow Directions: Good Speech Pattern: Spontaneous Speech Memory Description: Intact Diagnostics Vital Signs (24Hr): Vital Signs - 24 hr 12/13/21 08:00 12/13/21 16:25 Temperature 98.3 F 98.3 F Pulse Rate 78 74 Blood Pressure 135/65 102/61 Pulse Oximetry 96 96 BMI result Body Mass Index 38.7 Labs Results: 11/24/21 08:08 11/24/21 08:08 Imaging Radiology Impressions: ITS Impressions Abdomen Ultrasound 09/01/21 08:59 IMPRESSION: Slightly echogenic liver. Limited evaluation of the gallbladder as the patient has recently eaten. No gallstone seen. Limited visualization of the pancreas. Hip X-Ray 09/16/21 14:47 IMPRESSION: Moderate to severe left hip arthritis. Medications Medications Current Medications Acetaminophen (Acetaminophen 325 Mg Tablet) 975 mg PO Q6H PRN PRN Reason: Headache/Pain Mild Scale (1-3) Last Admin: 12/12/21 09:30 Dose: 975 mg Documented by: Amlodipine Besylate (Amlodipine Besylate 2.5 Mg Tablet) 2.5 mg PO DAILY [facility]; Protocol Last Admin: 12/13/21 09:14 Dose: 2.5 mg Documented by: Artificial Tears (Artificial Tears 15 Ml Drops) 2 drop EYE-BOTH Q4H PRN PRN Reason: Dry Eyes Last Admin: 11/19/21 08:54 Dose: 2 drop Documented by: Artificial Tears (Artificial Tears 15 Ml Drops) 2 drop EYE-BOTH Q4H PRN PRN Reason: dry eyes Benzocaine (Benzocaine 20 % Oral Gel 9 Gm Tube) 1 appl MUCOUS MEM QID PRN; Protocol PRN Reason: Mouth Sore Pain Last Admin: 08/31/21 03:05 Dose: 1 appl Documented by: Benzocaine (Throat Lozenge, Medicated Lozenge) 1 lozenge MUCOUS MEM Q2H PRN PRN Reason: Sore Throat Calcium Carbonate (Calcium Carbonate 500 Mg Tablet) 500 mg PO DAILY [facility] Last Admin: 12/13/21 09:13 Dose: 500 mg Documented by: Calcium Carbonate (Calcium Carbonate 750 Mg Tab.Chew) 750 mg PO Q4H PRN PRN Reason: Heartburn Last Admin: 12/02/21 20:19 Dose: 750 mg Documented by: Capsaicin (Capsaicin 0.025% Cream 60 Gm Tube) 1 appl TOPICAL QID PRN; Protocol PRN Reason: leg pain Last Admin: 12/13/21 09:15 Dose: 1 appl Documented by: Clotrimazole (Clotrimazole 1 % Cream 15 Gm Tube) 1 appl TOPICAL BID [facility]; Protocol Last Admin: 12/13/21 09:30 Dose: Not Given Documented by: Cyanocobalamin (Cyanocobalamin (Vitamin B-12) 100 Mcg Tablet) 100 mcg PO DAILY [facility] Last Admin: 12/13/21 09:14 Dose: 100 mcg Documented by: Dibucaine (Dibucaine 1 % Oint 28 Gm Tube) 1 appl TOPICAL QID PRN; Protocol PRN Reason: Hemorrhoids Last Admin: 12/13/21 09:15 Dose: 1 appl Documented by: Diclofenac Sodium (Diclofenac Sodium Delayed Rel 50 Mg Tablet.) 50 mg PO BID [facility] Last Admin: 12/13/21 09:12 Dose: 50 mg Documented by: Docusate Sodium (Docusate Sodium 100 Mg Capsule) 100 mg PO BID [facility] Last Admin: 12/13/21 09:13 Dose: 100 mg Documented by: Duloxetine HCl (Duloxetine Hcl 20 Mg Capsule.) 40 mg PO DAILY [facility] Last Admin: 12/13/21 09:13 Dose: 40 mg Documented by: Gabapentin (Gabapentin 400 Mg Capsule) 800 mg PO TID [facility] Last Admin: 12/13/21 16:09 Dose: 800 mg Documented by: Gabapentin (Gabapentin 100 Mg Capsule) 100 mg PO TID PRN PRN Reason: neuropathic pain Last Admin: 12/08/21 21:06 Dose: 100 mg Documented by: Lamotrigine (Lamotrigine 25 Mg Tablet) 50 mg PO BEDTIME [facility] Last Admin: 12/12/21 19:59 Dose: 50 mg Documented by: Levothyroxine Sodium (Levothyroxine Sodium 25 Mcg Tablet) 12.5 mcg PO DAILY@0600 [facility] Last Admin: 12/13/21 05:57 Dose: 12.5 mcg Documented by: Lorazepam (Lorazepam 1 Mg Tablet) 1 mg PO BEDTIME [facility] Last Admin: 12/12/21 19:59 Dose: 1 mg Documented by: Multi-Ingred Cream/Lotion/Oil/Oint (Mineral Oil/Petrolatum,White 106 Gm Tube) 1 appl TOPICAL BID [facility]; Protocol Last Admin: 12/13/21 09:14 Dose: 1 appl Documented by: Nicotine (Nicotine 14 Mg Patch.Td24) 14 mg TRANSDERMA DAILY [facility] Last Admin: 12/13/21 09:30 Dose: Not Given Documented by: Nicotine Polacrilex (Nicotine Polacrilex 2 Mg Gum) 4 mg BUCCAL Q1H PRN PRN Reason: Nicotine Cravings Last Admin: 12/13/21 16:08 Dose: 4 mg Documented by: Nf Medication ( Similasan Complete Eye Relief 2 Drop) 2 drop EYE-BOTH BID PRN PRN Reason: eye dryness Last Admin: 12/13/21 09:15 Dose: 2 drop Documented by: Omeprazole (Omeprazole 20 Mg Capsule.) 20 mg PO BID@0630,1630 [facility] Last Admin: 12/13/21 16:09 Dose: 20 mg Documented by: Polyethylene Glycol (Polyethylene Glycol 3350 17 Gm Powd.Pack) 17 gm PO DAILY PRN PRN Reason: Constipation Last Admin: 12/13/21 09:25 Dose: 17 gm Documented by: Psyllium Hydrophilic Mucilloid (Psyllium Seed 3.4 Gm Powd.Pack) 3.4 gm PO DAILY [facility] Last Admin: 12/13/21 09:30 Dose: Not Given Documented by: Quetiapine Fumarate (Quetiapine Fumarate 100 Mg Tablet) 100 mg PO Q6H PRN PRN Reason: anxiety/restlessness Quetiapine Fumarate (Quetiapine Fumarate 100 Mg Tablet) 500 mg PO BEDTIME [facility] Last Admin: 12/12/21 19:58 Dose: 500 mg Documented by: Ropinirole HCl (Ropinirole Hcl 2 Mg Tablet) 2 mg PO DAILY@1900 [facility] Last Admin: 12/12/21 19:08 Dose: 2 mg Documented by: Senna/Docusate Sodium (Sennosides/Docusate Sodium Tablet) 1 tab PO BID [facility] Last Admin: 12/13/21 09:13 Dose: 1 tab Documented by: Simethicone (Simethicone 80 Mg Tab.Chew) 80 mg PO QIDWMHS PRN PRN Reason: bloating Last Admin: 12/11/21 20:20 Dose: 80 mg Documented by: Sodium Chloride (Sodium Chloride 0.65 % Nasal 44 Ml Sprbtl) 1 spray NOSTRIL-B Q1H PRN PRN Reason: congestion Last Admin: 12/12/21 19:57 Dose: 1 spray Documented by: Trazodone HCl (Trazodone Hcl 25 Mg Halftab) 75 mg PO BEDTIME [facility] Last Admin: 12/12/21 19:58 Dose: 75 mg Documented by: Trolamine Salicylate/Aloe Vera (Trolamine Salicylate 10%/Aloe Cream 35.4 Gm) 1 appl TOPICAL QID PRN PRN Reason: leg pain Trolamine Salicylate/Aloe Vera (Trolamine Salicylate 10%/Aloe Cream 35.4 Gm) 1 appl TOPICAL QID PRN PRN Reason: mild-mod pain Last Admin: 11/21/21 16:20 Dose: 1 appl Documented by: Vitamin D (Cholecalciferol (Vitamin D3) 25 Mcg Tablet) 25 mcg PO DAILY [facility] Last Admin: 12/13/21 09:13 Dose: 25 mcg Documented by: Allergies Allergies Allergy/AdvReac Type Severity Reaction Status Date / Time aripiprazole [From Abilify] Allergy Unknown Involuntary Verified 08/19/21 07:20 Spasms chlorpromazine Allergy Unknown Nausea and Verified 08/19/21 07:20 [From Thorazine] Vomiting haloperidol [From Haldol] Allergy Unknown Involuntary Verified 08/19/21 07:20 Spasms olanzapine [From Zyprexa] Allergy Unknown Involuntary Verified 08/19/21 07:20 Spasms paliperidone [From Invega] Allergy Unknown Hallucinati Verified 08/19/21 07:20 ons risperidone Allergy Unknown Involuntary Verified 08/19/21 07:20 Spasms Assessment & Plan Assessment & Plan (1) Schizoaffective disorder, bipolar type: Status: Acute Code(s): F25.0 - Schizoaffective disorder, bipolar type (2) Lumbar radiculopathy: Status: Acute Code(s): M54.16 - Radiculopathy, lumbar region (3) Hip pain, left: Status: Acute Code(s): M25.552 - Pain in left hip Plan 1. plan for d/c 12/14 to respite. Continue current medications. I spent ___25___ minutes with the patient and/or on the patient floor today, greater than?50% of which was spent counseling/coordinating care. Reason for contiued inpatient stay Substantial Risk for: inability to function
[2021-12-13 16:25] VITALS: BP 102/61; PULSE 74; TEMP 36.8; O2SAT 96
--- NOTE | 2021-12-13 17:50 | PC.NURSE ---
Patient will be discharged tomorrow. Rapid Covid specimen obtained. Patient will also get Mag Citrate x 1 for c/o mild constipation.
[2021-12-13 18:05] LABS: COVID-19 Test Negative (Negative); IDNOW Serial# 16C4AD1C
[2021-12-13] MEDS: rOPINIRole HCL 2 MG TABLET PO (18:45)
[2021-12-13] MEDS: Magnesium Citrate 300 ML SOLUTION PO (18:46)
[2021-12-13] MEDS: lamoTRIgine 25 MG TABLET 50 MG PO (20:42)
[2021-12-13] MEDS: LORazepam 1 MG TABLET PO (20:43)
[2021-12-13] MEDS: QUEtiapine Fumarate 100 MG TABLET 500 MG PO (20:44)
[2021-12-14 06:00] VITALS: BP 126/78; PULSE 75; RESP 16; O2SAT 98
[2021-12-14] MEDS: Levothyroxine Sodium 25 MCG TABLET 12.5 MCG PO (06:09)
[2021-12-14] MEDS: Omeprazole 20 MG CAPSULE.DR PO (06:10)
[2021-12-14] MEDS: Sodium Chloride 0.65 % Nasal 44 ML SPRBTL 1 SPRAY NOSTRIL-B (06:15)
[2021-12-14] MEDS: Nicotine Polacrilex 2 MG GUM 4 MG BUCCAL (08:19)
[2021-12-14] MEDS: Cholecalciferol (Vitamin D3) 25 MCG TABLET PO (08:20)
[2021-12-14] MEDS: Sennosides/Docusate Sodium TABLET 1 TAB PO (08:20)
[2021-12-14] MEDS: Gabapentin 400 MG CAPSULE 800 MG PO (08:20)
[2021-12-14] MEDS: DULoxetine HCl 20 MG CAPSULE.DR 40 MG PO (08:20)
[2021-12-14] MEDS: Docusate Sodium 100 MG CAPSULE PO (08:20)
[2021-12-14] MEDS: Diclofenac Sodium Delayed Rel 50 MG TABLET.DR PO (08:20)
[2021-12-14] MEDS: amLODIPine Besylate 2.5 MG TABLET PO (08:21)
[2021-12-14] MEDS: Cyanocobalamin (Vitamin B-12) 100 MCG TABLET PO (08:21)
[2021-12-14] MEDS: Acetaminophen 325 MG TABLET 975 MG PO (11:15)
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
== END 2021-12-14 11:29 | DRG 885 ==
LOC: HO.PADLT16 12:35 → HO.PM5 08-25 11:06
PROVIDERS: Internal Medicine Nephrology; Registered Nurse; Admitting Provider Social Worker; Visit Provider Clinical Nurse Specialist Psychiatric/Mental Health, Adult
DX: F25.0 Schizoaffective disorder, bipolar type (principal); I10 Essential (primary) hypertension; E87.5 Hyperkalemia; F17.210 Nicotine dependence, cigarettes, uncomplicated; M54.16 Radiculopathy, lumbar region; M16.12 Unilateral primary osteoarthritis, left hip; Z20.822 Contact with and (suspected) exposure to COVID-19; Z71.6 Tobacco abuse counseling; Z88.8 Allergy status to other drugs, medicaments and biological substances; Z79.899 Other long term (current) drug therapy; Z23 Encounter for immunization
CPT/HCPCS: 36415; 73502; 76700; 80051; 80053; 80061; 80178; 82306; 82550; 82607; 82746; 83036; 83540; 83735; 84132; 84443; 84702; 85025; 85652; 86140; 86200; 86431; 87071; 87086; 87635; 90471; 90686; 93005; 97161; 97162; J0248; J2060; J3486; Q0163